=== PATIENT | female | born 1950 | race American Indian/Alaskan Native ===

== ENCOUNTER 2018-09-21 21:55 | Inpatient (IN) | payer MEDICARE ==
[2018-09-21] MEDS ORDERED: ROCEPHIN/NS 2 GM/100 ML 2 GM/100 ML BAG IV ONE (22:10)
--- NOTE | 2018-09-21 22:10 | Emergency Department Report ---
ED Altered Mental Status HPI - General Stated Complaint: RESP DISTRESS Time Seen by Provider: 09/21/18 21:55 Source: EMS Mode of arrival: Stretcher Limitations: Altered Mental Status, Physical Limitation - History of Present Illness Initial Comments: Patient is 68-year-old female that presents emergency room with altered mental status, decreased responsiveness and respiratory distress. Patient intubated immediately upon arrival. Sats noted to be in the 80s on a nonrebreather. Report received from EMS. Per EMS patient called 911 for chest pain. Patient took a nitroglycerin prior to EMS arrival to arouse. Patient had chest pain that started at 2130. patient found to be hypoxic in the 40s by EMS and the one unresponsive. MD Complaint: altered mental status, decreased responsiveness -: Sudden Severity: severe Consistency of Symptoms: getting worse Associated Symptoms: denies other symptoms - Related Data Allergies Allergy/AdvReac Type Severity Reaction Status Date / Time Unable to Assess Allergy Verified 09/21/18 22:09 ED Review of Systems ROS: Stated complaint: RESP DISTRESS Other details as noted in HPI Comment: Unobtainable due to pts medical conditions ED Past Medical Hx - Past Medical History Previous Medical History?: Yes Hx Hypertension: Yes Hx Congestive Heart Failure: Yes Hx Diabetes: Yes Hx Renal Disease: Yes - Surgical History Past Surgical History?: No - Family History Family history: no significant - Social History Smoking Status: Unknown if ever smoked Substance Use Type: None ED Physical Exam - General Limitations: Altered Mental Status General appearance: in distress - Head Head exam: Present: atraumatic, normocephalic - Eye Eye exam: Present: normal appearance, PERRL Pupils: Present: normal accommodation - ENT ENT exam: Present: mucous membranes dry - Neck Neck exam: Present: normal inspection - Respiratory Respiratory exam: Present: respiratory distress, rales, rhonchi, decreased breath sounds - Cardiovascular Cardiovascular Exam: Present: regular rate, normal rhythm, tachycardia. Absent: systolic murmur, diastolic murmur, rubs, gallop - GI/Abdominal GI/Abdominal exam: Present: soft, normal bowel sounds - Extremities Exam Extremities exam: Present: normal inspection - Neurological Exam Neurological exam: Present: altered - Expanded Neurological Exam Expanded Best Eye Response (Yuli[place]): (1) no response Best Motor Response ([place]): (4) withdraws to pain Best Verbal Response ([place]): (2) incomprehsible sounds [place] Total: 7 - Skin Skin exam: Present: warm, dry, intact, normal color. Absent: rash - Assessment Assessment Interval: Baseline - Level of Consciousness 1a. Level of Consciousness: coma/unresponsive - LOC Questions 1b. LOC Questions: dysarthric/intubated - LOC Command 1c. LOC Commands: performs no tasks correctly - Best Gaze 2. Best Gaze: normal - Visual 3. Visual: no visual loss - Facial Palsy 4. Facial Palsy: normal symmetrical movement - Motor Arm 5b. Motor Arm Right: no movement 5a. Motor Arm Left: no movement - Motor Leg 6b. Motor Leg Right: no movement 6a. Motor Leg Left: no movement - Limb Ataxia 7. Limb Ataxia: absent - Sensory 8. Sensory: coma/unresponsive - Best Language 9. Best Language: coma/unresponsive - Dysarthria 10. Dysarthria: intubated or other barrier - Extinction and Inattention 11. Extinction/Inattention: no abnormality - Scoring Total Score: 27 Stroke Severity: Severe Stroke ED Course Vital Signs 09/21/18 09/21/18 09/21/18 21:58 22:00 22:15 Temperature 98.7 F Pulse Rate 150 H 137 H 131 H Respiratory 42 H 42 H 26 H Rate Blood Pressure 205/93 Blood Pressure 241/114 [Left] O2 Sat by Pulse 56 L 60 L 100 Oximetry 09/21/18 09/21/18 09/21/18 22:30 22:45 23:00 Temperature Pulse Rate 109 H 109 H 107 H Respiratory 28 H 20 27 H Rate Blood Pressure 185/95 172/91 179/87 Blood Pressure [Left] O2 Sat by Pulse 100 100 100 Oximetry 09/21/18 09/21/18 09/21/18 23:16 23:30 23:46 Temperature Pulse Rate 108 H 93 H Respiratory 34 H 25 H Rate Blood Pressure 188/71 182/86 176/105 Blood Pressure [Left] O2 Sat by Pulse 99 100 100 Oximetry 09/22/18 09/22/18 09/22/18 00:00 00:16 00:30 Temperature Pulse Rate 95 H 95 H 90 Respiratory 30 H 31 H 28 H Rate Blood Pressure 200/95 200/95 200/95 Blood Pressure [Left] O2 Sat by Pulse 100 100 100 Oximetry 09/22/18 09/22/18 09/22/18 00:50 01:00 01:14 Temperature Pulse Rate 108 H 89 90 Respiratory 26 H Rate Blood Pressure 186/84 209/108 209/108 Blood Pressure [Left] O2 Sat by Pulse 100 98 Oximetry 09/22/18 09/22/18 09/22/18 01:16 01:30 01:46 Temperature Pulse Rate 95 H 104 H 108 H Respiratory 28 H 32 H 34 H Rate Blood Pressure 189/93 186/84 106/92 Blood Pressure [Left] O2 Sat by Pulse 99 100 100 Oximetry 09/22/18 09/22/18 09/22/18 02:00 02:16 02:30 Temperature Pulse Rate 111 H 120 H 113 H Respiratory 33 H 36 H 26 H Rate Blood Pressure 161/89 145/82 110/85 Blood Pressure [Left] O2 Sat by Pulse 98 98 100 Oximetry - Reevaluation(s) Reevaluation #1: Patient evaluated immediately upon arrival with EMS. Patient minimally responsive. Patient will be intubated to protect airway and for oxygenation. Patient's initial sat 80% on 15 L by nonrebreather. See procedure note. See initial examination. 09/21/18 21:55 Patient's blood pressure has improved. Patient is resting on that. Patient's propofol drip has been started 09/21/18 22:25 Patient still moving on propofol. Versed drip was ordered. Patient's x-ray shows pneumonia. Patient's x-ray also showed ET tube in the right bronchus. ET tube pulled back 2 cm. We'll repeat chest x-ray. NG tube is not in the stomach. We'll have nurse re-position NG tube. Antibiotics ordered. 09/21/18 23:11 We'll DC propofol drip due to patient not being controlled and properly sedated. Patient will be placed on fentanyl drip. Blood pressure has improved with danay atment. 09/22/18 01:47 Family at bedside. Family states patient has a history of diabetes, CHF, CKD4. 09/22/18 01:47 OG placed an x-ray was done. Patient will be transported to CT. 09/22/18 02:37 - Consultations Consultation #1: Hospital was consulted for admission. Hospitalist was given full report. Hospitalist to assume care patient. . Hospitalist made aware that head CT is pending. 09/22/18 02:46 - Intubation Time Out Performed: Yes Sedative: Etomidate Paralytic: Succinylcholine Laryngoscope: fiberoptic video scope Size: 4 Assist Device Used: fiberoptic device ET Tube Size: 7.5 Tube Secured Depth (cm): 24 Tube Secured Location: lips Tube Placement Confirmation: visualized tube passing t, equal breath sounds bilat, no breath sounds over epi, confirmation by capnometr Patient Tolerated Procedure: well Intubation Complications: none - Lab Data Result diagrams: 09/21/18 22:56 09/21/18 22:56 Lab Results 09/21/18 09/21/18 09/21/18 Range/Units 22:56 22:56 22:56 WBC 7.7 (4.5-11.0) K/mm3 RBC 3.05 L (3.65-5.03) M/mm3 Hgb 9.0 L (10.1-14.3) gm/dl Hct 26.9 L (30.3-42.9) % MCV 88 (79-97) fl MCH 30 (28-32) pg MCHC 34 (30-34) % RDW 15.0 (13.2-15.2) % Plt Count 235 (140-440) K/mm3 Lymph % (Auto) 9.3 L (13.4-35.0) % Becker % (Auto) 4.3 (0.0-7.3) % Eos % (Auto) 1.6 (0.0-4.3) % Baso % (Auto) 0.8 (0.0-1.8) % Lymph # 0.7 L (1.2-5.4) K/mm3 Becker # 0.3 (0.0-0.8) K/mm3 Eos # 0.1 (0.0-0.4) K/mm3 Baso # 0.1 (0.0-0.1) K/mm3 Seg Neutrophils % 84.0 H (40.0-70.0) % Seg Neutrophils # 6.5 (1.8-7.7) K/mm3 D-Dimer (0-234) ng/mlDDU POC ABG pH (7.35-7.45) POC ABG pCO2 (35-45) POC ABG pO2 (80-105) POC ABG HCO3 POC ABG Total CO2 POC ABG O2 Sat POC ABG Base Excess FiO2 % Sodium 143 (137-145) mmol/L Potassium 5.2 H (3.6-5.0) mmol/L Chloride 107.0 (98-107) mmol/L Carbon Dioxide 17 L (22-30) mmol/L Anion Gap 24 mmol/L BUN 53 H (7-17) mg/dL Creatinine 6.7 H (0.7-1.2) mg/dL Estimated GFR 7 ml/min BUN/Creatinine Ratio 8 % Glucose 307 H (65-100) mg/dL Lactic Acid (0.7-2.0) mmol/L Calcium 8.2 L (8.4-10.2) mg/dL Total Bilirubin 0.20 (0.1-1.2) mg/dL AST 17 (5-40) units/L ALT 9 (7-56) units/L Alkaline Phosphatase 86 (35-129) units/L Ammonia 57.0 (25-60) umol/L Troponin T (0.00-0.029) ng/mL Total Protein 6.5 (6.3-8.2) g/dL Albumin 3.6 L (3.9-5) g/dL Albumin/Globulin Ratio 1.2 % Triglycerides (2-149) mg/dL Cholesterol (50-199) mg/dL LDL Cholesterol Direct (50-130) mg/dL HDL Cholesterol (40-59) mg/dL Cholesterol/HDL Ratio % Salicylates (2.8-20.0) mg/dL Acetaminophen (10.0-30.0) ug/mL Plasma/Serum Alcohol (0-0.07) % 09/21/18 09/21/18 09/21/18 Range/Units 22:56 22:56 22:56 WBC (4.5-11.0) K/mm3 RBC (3.65-5.03) M/mm3 Hgb (10.1-14.3) gm/dl Hct (30.3-42.9) % MCV (79-97) fl MCH (28-32) pg MCHC (30-34) % RDW (13.2-15.2) % Plt Count (140-440) K/mm3 Lymph % (Auto) (13.4-35.0) % Becker % (Auto) (0.0-7.3) % Eos % (Auto) (0.0-4.3) % Baso % (Auto) (0.0-1.8) % Lymph # (1.2-5.4) K/mm3 Becker # (0.0-0.8) K/mm3 Eos # (0.0-0.4) K/mm3 Baso # (0.0-0.1) K/mm3 Seg Neutrophils % (40.0-70.0) % Seg Neutrophils # (1.8-7.7) K/mm3 D-Dimer (0-234) ng/mlDDU POC ABG pH (7.35-7.45) POC ABG pCO2 (35-45) POC ABG pO2 (80-105) POC ABG HCO3 POC ABG Total CO2 POC ABG O2 Sat POC ABG Base Excess FiO2 % Sodium (137-145) mmol/L Potassium (3.6-5.0) mmol/L Chloride (98-107) mmol/L Carbon Dioxide (22-30) mmol/L Anion Gap mmol/L BUN (7-17) mg/dL Creatinine (0.7-1.2) mg/dL Estimated GFR ml/min BUN/Creatinine Ratio % Glucose (65-100) mg/dL Lactic Acid (0.7-2.0) mmol/L Calcium (8.4-10.2) mg/dL Total Bilirubin (0.1-1.2) mg/dL AST (5-40) units/L ALT (7-56) units/L Alkaline Phosphatase (35-129) units/L Ammonia (25-60) umol/L Troponin T 0.025 (0.00-0.029) ng/mL Total Protein (6.3-8.2) g/dL Albumin (3.9-5) g/dL Albumin/Globulin Ratio % Triglycerides (2-149) mg/dL Cholesterol (50-199) mg/dL LDL Cholesterol Direct (50-130) mg/dL HDL Cholesterol (40-59) mg/dL Cholesterol/HDL Ratio % Salicylates < 0.3 L (2.8-20.0) mg/dL Acetaminophen < 5.0 L (10.0-30.0) ug/mL Plasma/Serum Alcohol (0-0.07) % 09/21/18 09/21/18 09/21/18 Range/Units 22:56 22:56 22:56 WBC (4.5-11.0) K/mm3 RBC (3.65-5.03) M/mm3 Hgb (10.1-14.3) gm/dl Hct (30.3-42.9) % MCV (79-97) fl MCH (28-32) pg MCHC (30-34) % RDW (13.2-15.2) % Plt Count (140-440) K/mm3 Lymph % (Auto) (13.4-35.0) % Becker % (Auto) (0.0-7.3) % Eos % (Auto) (0.0-4.3) % Baso % (Auto) (0.0-1.8) % Lymph # (1.2-5.4) K/mm3 Becker # (0.0-0.8) K/mm3 Eos # (0.0-0.4) K/mm3 Baso # (0.0-0.1) K/mm3 Seg Neutrophils % (40.0-70.0) % Seg Neutrophils # (1.8-7.7) K/mm3 D-Dimer 4401.15 H (0-234) ng/mlDDU POC ABG pH (7.35-7.45) POC ABG pCO2 (35-45) POC ABG pO2 (80-105) POC ABG HCO3 POC ABG Total CO2 POC ABG O2 Sat POC ABG Base Excess FiO2 % Sodium (137-145) mmol/L Potassium (3.6-5.0) mmol/L Chloride (98-107) mmol/L Carbon Dioxide (22-30) mmol/L Anion Gap mmol/L BUN (7-17) mg/dL Creatinine (0.7-1.2) mg/dL Estimated GFR ml/min BUN/Creatinine Ratio % Glucose (65-100) mg/dL Lactic Acid 3.70 H* (0.7-2.0) mmol/L Calcium (8.4-10.2) mg/dL Total Bilirubin (0.1-1.2) mg/dL AST (5-40) units/L ALT (7-56) units/L Alkaline Phosphatase (35-129) units/L Ammonia (25-60) umol/L Troponin T (0.00-0.029) ng/mL Total Protein (6.3-8.2) g/dL Albumin (3.9-5) g/dL Albumin/Globulin Ratio % Triglycerides (2-149) mg/dL Cholesterol (50-199) mg/dL LDL Cholesterol Direct (50-130) mg/dL HDL Cholesterol (40-59) mg/dL Cholesterol/HDL Ratio % Salicylates (2.8-20.0) mg/dL Acetaminophen (10.0-30.0) ug/mL Plasma/Serum Alcohol < 0.01 (0-0.07) % 09/21/18 09/21/18 09/22/18 Range/Units 23:14 23:57 00:48 WBC (4.5-11.0) K/mm3 RBC (3.65-5.03) M/mm3 Hgb (10.1-14.3) gm/dl Hct (30.3-42.9) % MCV (79-97) fl MCH (28-32) pg MCHC (30-34) % RDW (13.2-15.2) % Plt Count (140-440) K/mm3 Lymph % (Auto) (13.4-35.0) % Becker % (Auto) (0.0-7.3) % Eos % (Auto) (0.0-4.3) % Baso % (Auto) (0.0-1.8) % Lymph # (1.2-5.4) K/mm3 Becker # (0.0-0.8) K/mm3 Eos # (0.0-0.4) K/mm3 Baso # (0.0-0.1) K/mm3 Seg Neutrophils % (40.0-70.0) % Seg Neutrophils # (1.8-7.7) K/mm3 D-Dimer (0-234) ng/mlDDU POC ABG pH 7.234 L 7.322 L (7.35-7.45) POC ABG pCO2 45.0 42.2 (35-45) POC ABG pO2 118 H 142 H (80-105) POC ABG HCO3 19.0 21.8 POC ABG Total CO2 20 23 POC ABG O2 Sat 98 99 POC ABG Base Excess -8 -4 FiO2 80 60 % Sodium (137-145) mmol/L Potassium (3.6-5.0) mmol/L Chloride (98-107) mmol/L Carbon Dioxide (22-30) mmol/L Anion Gap mmol/L BUN (7-17) mg/dL Creatinine (0.7-1.2) mg/dL Estimated GFR ml/min BUN/Creatinine Ratio % Glucose (65-100) mg/dL Lactic Acid (0.7-2.0) mmol/L Calcium (8.4-10.2) mg/dL Total Bilirubin (0.1-1.2) mg/dL AST (5-40) units/L ALT (7-56) units/L Alkaline Phosphatase (35-129) units/L Ammonia (25-60) umol/L Troponin T 0.062 H D (0.00-0.029) ng/mL Total Protein (6.3-8.2) g/dL Albumin (3.9-5) g/dL Albumin/Globulin Ratio % Triglycerides 208 H (2-149) mg/dL Cholesterol 206 H (50-199) mg/dL LDL Cholesterol Direct 143 H (50-130) mg/dL HDL Cholesterol 40 (40-59) mg/dL Cholesterol/HDL Ratio 5.15 % Salicylates (2.8-20.0) mg/dL Acetaminophen (10.0-30.0) ug/mL Plasma/Serum Alcohol (0-0.07) % 09/22/18 Range/Units 01:24 WBC (4.5-11.0) K/mm3 RBC (3.65-5.03) M/mm3 Hgb (10.1-14.3) gm/dl Hct (30.3-42.9) % MCV (79-97) fl MCH (28-32) pg MCHC (30-34) % RDW (13.2-15.2) % Plt Count (140-440) K/mm3 Lymph % (Auto) (13.4-35.0) % Becker % (Auto) (0.0-7.3) % Eos % (Auto) (0.0-4.3) % Baso % (Auto) (0.0-1.8) % Lymph # (1.2-5.4) K/mm3 Becker # (0.0-0.8) K/mm3 Eos # (0.0-0.4) K/mm3 Baso # (0.0-0.1) K/mm3 Seg Neutrophils % (40.0-70.0) % Seg Neutrophils # (1.8-7.7) K/mm3 D-Dimer (0-234) ng/mlDDU POC ABG pH (7.35-7.45) POC ABG pCO2 (35-45) POC ABG pO2 (80-105) POC ABG HCO3 POC ABG Total CO2 POC ABG O2 Sat POC ABG Base Excess FiO2 % Sodium (137-145) mmol/L Potassium (3.6-5.0) mmol/L Chloride (98-107) mmol/L Carbon Dioxide (22-30) mmol/L Anion Gap mmol/L BUN (7-17) mg/dL Creatinine (0.7-1.2) mg/dL Estimated GFR ml/min BUN/Creatinine Ratio % Glucose (65-100) mg/dL Lactic Acid 1.90 (0.7-2.0) mmol/L Calcium (8.4-10.2) mg/dL Total Bilirubin (0.1-1.2) mg/dL AST (5-40) units/L ALT (7-56) units/L Alkaline Phosphatase (35-129) units/L Ammonia (25-60) umol/L Troponin T (0.00-0.029) ng/mL Total Protein (6.3-8.2) g/dL Albumin (3.9-5) g/dL Albumin/Globulin Ratio % Triglycerides (2-149) mg/dL Cholesterol (50-199) mg/dL LDL Cholesterol Direct (50-130) mg/dL HDL Cholesterol (40-59) mg/dL Cholesterol/HDL Ratio % Salicylates (2.8-20.0) mg/dL Acetaminophen (10.0-30.0) ug/mL Plasma/Serum Alcohol (0-0.07) % - EKG Data -: EKG Interpreted by Me EKG shows normal: sinus rhythm, axis, intervals, QRS complexes, ST-T waves Rate: normal - Radiology Data Radiology results: report reviewed, image reviewed interpreted by me: Second chest x-ray shows ET tube above the osvaldo. Flat plate abdomen shows OG tube in good placement. FINAL REPORT PROCEDURE: XR CHEST 1V AP TECHNIQUE: Chest radiograph anteroposterior view. CPT 03363 HISTORY: intubation COMPARISON: No prior studies are available for comparison. FINDINGS: Heart: Normal. Mediastinum/Vessels: Normal. Lungs/Pleural space: There is evidence of consolidation involving the right lower lung. Left lower lung is obscured by the cardiac shadow. Bilateral pleural spaces are clear.. Bony thorax: No acute osseous abnormality. Life support devices: An endotracheal tube is noted terminating in the proximal right main bronchus. A nasogastric tube appears to be terminating in the cervical esophagus.. IMPRESSION: Consolidation right lower lung. Pneumonia is suspected. Endotracheal tube is terminating in the proximal right main bronchus. Repositioning is recommended. Nasogastric tube appears to be terminating in the cervical esophagus. - Medical Decision Making Patient is a 68-year-old female presents emergency room with hypoxia and respiratory failure or mental status. Patient was initially intubated. Patient found to have left acidosis. Lipase S is improved with intubation. Patient given antibiotics for pneumonia. Patient found to be septic. Patient has a positive chest x-ray for pneumonia. Patient has a head CT done. - Differential Diagnosis hypoxia. Pneumonia. Respiratory failure. Critical Care Time: Yes Critical care attestation.: If time is entered above; I have spent that time in minutes in the direct care of this critically ill patient, excluding procedure time. Critical Care Time: 55 minutes ED Disposition Clinical Impression: Hypoxia, Decreased responsiveness, Lactic acid acidosis Respiratory failure Qualifiers: Chronicity: acute Respiratory failure complication: hypoxia Qualified Code(s): J96.01 - Acute respiratory failure with hypoxia Pneumonia Qualifiers: Pneumonia type: due to unspecified organism Laterality: unspecified laterality Lung location: unspecified part of lung Qualified Code(s): J18.9 - Pneumonia, unspecified organism CKD (chronic kidney disease) Qualifiers: Chronic kidney disease stage: unspecified stage Qualified Code(s): N18.9 - Chronic kidney disease, unspecified Sepsis Qualifiers: Sepsis type: sepsis due to unspecified organism Qualified Code(s): A41.9 - Sepsis, unspecified organism Hypertension Qualifiers: Hypertension type: essential hypertension Qualified Code(s): I10 - Essential (primary) hypertension Disposition: OP ADMIT IP TO THIS HOSP Is pt being admited?: Yes Does the pt Need Aspirin: No Condition: Critical Time of Disposition: 02:46
[2018-09-21] MEDS ORDERED: DIPRIVAN 10 MG/ML 1,000 MG/100 ML BOTTLE IV ONE (22:13)
[2018-09-21] MEDS ORDERED: MIDAZOLAM 100 MG in NACL 0.9% 80 ML IV SCH ×2 (22:15→23:45)
[2018-09-21] MEDS ORDERED: ASPIRIN PR ONE (22:30)
[2018-09-21] MEDS ORDERED: DIPRIVAN 10 MG/ML 1,000 MG/100 ML BOTTLE IV SCH (22:30)
--- NOTE | 2018-09-21 23:06 | XRay Report ---
FINAL REPORT PROCEDURE: XR CHEST 1V AP TECHNIQUE: Chest radiograph anteroposterior view. CPT 46650 HISTORY: intubation COMPARISON: No prior studies are available for comparison. FINDINGS: Heart: Normal. Mediastinum/Vessels: Normal. Lungs/Pleural space: There is evidence of consolidation involving the right lower lung. Left lower jenni ng is obscured by the cardiac shadow. Bilateral pleural spaces are clear.. Bony thorax: No acute osseous abnormality. Life support devices: An endotracheal tube is noted terminating in the proximal right main bronchus. A nasogastric tube appears to be terminating in the cervical esophagus.. IMPRESSION: Consolidation right lower lung. Pneumonia is suspected. Endotracheal tube is terminating in the proximal right main bronchus. Repositioning is recommended. Nasogastric tube appears to be terminating in the cervical esophagus..
[2018-09-21] MEDS ORDERED: NACL 0.9% 1000 ML 1,000 ML IV ONE (23:08)
[2018-09-21] MEDS ORDERED: MAXIPIME/NS 2 GM/100 ML 2 GM/100 ML BAG IV ONE (23:08)
[2018-09-21 23:17] LABS: Basophils # (Auto) 0.1 K/mm3 (0.0-0.1); Basophils % (Auto) 0.8 % (0.0-1.8); Eosinophils # (Auto) 0.1 K/mm3 (0.0-0.4); Eosinophils % (Auto) 1.6 % (0.0-4.3); Hematocrit 26.9 % (30.3-42.9); Lymphocytes # (Auto) 0.7 K/mm3 (1.2-5.4); Lymphocytes % (Auto) 9.3 % (13.4-35.0); Mean Corpuscular HGB Conc 34 % (30-34); Mean Corpuscular Volume 88 fl (79-97); Monocytes # (Auto) 0.3 K/mm3 (0.0-0.8); Monocytes % (Auto) 4.3 % (0.0-7.3); Platelet Count 235 K/mm3 (140-440); Red Blood Count 3.05 M/mm3 (3.65-5.03)
[2018-09-21 23:42] LABS: Albumin 3.6 g/dL (3.9-5); Calcium 8.2 mg/dL (8.4-10.2)
--- NOTE | 2018-09-21 23:54 | XRay Report ---
FINAL REPORT PROCEDURE: XR CHEST 1V AP TECHNIQUE: Chest radiograph anteroposterior view. CPT 52300 HISTORY: et reposition. ng COMPARISON: 09/21/2018 22 39 hours FINDINGS: Patient is rotated to the left Heart: Normal. Mediastinum/Vessels: Normal. Lungs/Pleural space: Consolidation of right lower lung is again noted. Left lower lung is obscured by cardiac shadow. There appears to be an area of consolidation involving the left lower lung as visual ized. Left costophrenic angle is obscured by the cardiac shadow. Right costophrenic angle is clear.. Bony thorax: No acute osseous abnormality. Life support devices: There isn't been interval repositioning of the endotracheal tube which is now t erminating about 2.9 centimeters above the osvaldo.. IMPRESSION: Consolidation right lower lung consistent with pneumonia. Endotracheal tube terminating about 2.9 centimeters above the osvaldo Consolidation left lower lung is most likely secondary to atelectasis. Underlying pneumonia cannot be excluded.
[2018-09-22] MEDS ORDERED: VERSED IV ONE (00:24)
[2018-09-22] MEDS ORDERED: QUELICIN ONE (00:24)
[2018-09-22] MEDS ORDERED: AMIDATE IV ONE (00:24)
[2018-09-22] MEDS ORDERED: APRESOLINE IV ONE (01:06)
[2018-09-22] MEDS: HumaLOG SUB-Q SCH ×3 (01:40→18:16)
[2018-09-22] MEDS ORDERED: fentaNYL DRIP Premix 2,000 MCG/100 ML BAG IV ONE (01:50)
[2018-09-22] MEDS: fentaNYL DRIP Premix 2,000 MCG/100 ML BAG IV SCH ×3 (02:06→17:36)
[2018-09-22 02:22] LABS: Chol/HDL Ratio 5.15 %
--- NOTE | 2018-09-22 03:07 | XRay Report ---
FINAL REPORT EXAM: XR ABDOMEN 1V AP HISTORY: og placement TECHNIQUE: A portable AP view of the abdomen was obtained. FINDINGS: The tip of the NG tube is in good position in the lower stomach. The bowel gas pattern is unremarkabl e. Free air is not seen. The skeletal structures do not show any acute changes. IMPRESSION: The tip of the NG tube is in the lower aspect of the stomach in good position.
--- NOTE | 2018-09-22 03:59 | Cat Scan Report ---
FINAL REPORT PROCEDURE: CT HEAD/BRAIN WO CON TECHNIQUE: Computerized tomography of the head was performed without contrast material. HISTORY: ams COMPARISON: No prior studies are available for comparison. FINDINGS: Skull and scalp: Normal. Paranasal sinuses: Normal. Ventricles and subarachnoid spaces: Normal. Cerebrum: No evidence of hemorrhage, acute infarction or mass. There is an area hypoattenuation in th e right occipital lobe, old infarction is noted.. Cerebellum and brainstem: No evidence of hemorrhage, acute infarction or mass. Vasculature: Normal. Comments: None. IMPRESSION: There is no evidence of an acute intracranial process. 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
[2018-09-22] MEDS ORDERED: ZOFRAN IV PRN (04:14)
[2018-09-22] MEDS ORDERED: D50W (25GM) Syringe IV PRN (04:14)
--- NOTE | 2018-09-22 04:32 | History and Physical Report ---
History of Present Illness Date of examination: 09/22/18 History of present illness: 68 year old woman history of CHF, hypertension, diabetes, chronic kidney disease was brought to the emergency room for shortness of breath. The history is per the son Roshan, he stated he was not at the scene, the patient was at [facility] when her symptoms started. Patient was intubated in the emergency room, she is sedated, review of system is unobtainable. Nurse reported that the patient had copious amount of vomiting in the ER PAST MEDICAL HISTORY: CHF, hypertension, diabetes, chronic kidney disease PAST SURGICAL HISTORY: None SOCIAL HISTORY: Denies alcohol, drugs, tobacco FAMILY HISTORY: Hypertension Medications and Allergies Allergies Allergy/AdvReac Type Severity Reaction Status Date / Time Unable to Assess Allergy Verified 09/21/18 22:09 Active Meds: Active Medications Acetaminophen (Tylenol) 650 mg PO Q4H PRN PRN Reason: Pain MILD(1-3)/Fever >100.5/MEJIA Dextrose (D50w (25gm) Syringe) 50 ml IV PRN PRN PRN Reason: Hypoglycemia Enoxaparin Sodium (Lovenox) 30 mg SUB-Q QDAY [facility] Midazolam HCl 100 mg/ Sodium (Chloride) 100 mls @ 2 mls/hr IV TITR [facility]; Protocol Last Admin: 09/21/18 22:50 Dose: 2 mg/hr, 2 mls/hr Documented by: Fentanyl Citrate (Fentanyl Drip Premix) 2,000 mcg in 100 mls @ 3.7 mls/hr IV TITR [facility]; Protocol Last Admin: 09/22/18 02:06 Dose: 1 mcg/kg/hr, 3.7 mls/hr Documented by: Piperacillin Sod/Tazobactam Sod (Zosyn/Ns 2.25 Gm/50ml) 2.25 gm in 50 mls @ 100 mls/hr IV Q8HR [facility]; Protocol Insulin Human Lispro (Humalog) 0 unit SUB-Q Q6HR [facility]; Protocol Ondansetron HCl (Zofran) 4 mg IV Q8H PRN PRN Reason: Nausea And Vomiting Sodium Chloride (Sodium Chloride Flush Syringe 10 Ml) 10 ml IV BID [facility] Sodium Chloride (Sodium Chloride Flush Syringe 10 Ml) 10 ml IV PRN PRN PRN Reason: LINE FLUSH Exam - Physical Exam Narrative exam: General Apperance: The patient lying in bed, intubated, breathing comfortable HEENT: Normocephalic, atraumatic. Pupils equally round and reactive to light, unable to do EOM, no sclericterus or JVD or thyromegaly or nodule. , no carotid bruit, mucous membranes moist, ET tube in place Heart: S1-S2, regular is rhythm Lungs: Clear to auscultation bilaterally, breathing comfortable Abdomen: Positive bowel sounds, soft, soft, nondistended, no organomegaly Extremities: No edema cyanosis clubbing Skin: no rash, nodule, warm and dry Neuro: sedated - Constitutional Vitals: Temp Pulse Resp BP Pulse Ox 98.7 F 78 26 H 141/59 99 09/21/18 22:00 09/22/18 04:15 09/22/18 04:15 09/22/18 04:15 09/22/18 04:15 Results - Labs CBC & Chem 7: 09/21/18 22:56 09/21/18 22:56 Labs: Abnormal lab results 09/21/18 09/21/18 09/21/18 Range/Units 22:56 22:56 22:56 RBC 3.05 L (3.65-5.03) M/mm3 Hgb 9.0 L (10.1-14.3) gm/dl Hct 26.9 L (30.3-42.9) % Lymph % (Auto) 9.3 L (13.4-35.0) % Lymph # 0.7 L (1.2-5.4) K/mm3 Seg Neutrophils % 84.0 H (40.0-70.0) % D-Dimer (0-234) ng/mlDDU POC ABG pH (7.35-7.45) POC ABG pO2 (80-105) Potassium 5.2 H (3.6-5.0) mmol/L Carbon Dioxide 17 L (22-30) mmol/L BUN 53 H (7-17) mg/dL Creatinine 6.7 H (0.7-1.2) mg/dL Glucose 307 H (65-100) mg/dL Lactic Acid (0.7-2.0) mmol/L Calcium 8.2 L (8.4-10.2) mg/dL Troponin T (0.00-0.029) ng/mL Albumin 3.6 L (3.9-5) g/dL Triglycerides (2-149) mg/dL Cholesterol (50-199) mg/dL LDL Cholesterol Direct (50-130) mg/dL Salicylates < 0.3 L (2.8-20.0) mg/dL Acetaminophen (10.0-30.0) ug/mL 09/21/18 09/21/18 09/21/18 Range/Units 22:56 22:56 22:56 RBC (3.65-5.03) M/mm3 Hgb (10.1-14.3) gm/dl Hct (30.3-42.9) % Lymph % (Auto) (13.4-35.0) % Lymph # (1.2-5.4) K/mm3 Seg Neutrophils % (40.0-70.0) % D-Dimer 4401.15 H (0-234) ng/mlDDU POC ABG pH (7.35-7.45) POC ABG pO2 (80-105) Potassium (3.6-5.0) mmol/L Carbon Dioxide (22-30) mmol/L BUN (7-17) mg/dL Creatinine (0.7-1.2) mg/dL Glucose (65-100) mg/dL Lactic Acid 3.70 H* (0.7-2.0) mmol/L Calcium (8.4-10.2) mg/dL Troponin T (0.00-0.029) ng/mL Albumin (3.9-5) g/dL Triglycerides (2-149) mg/dL Cholesterol (50-199) mg/dL LDL Cholesterol Direct (50-130) mg/dL Salicylates (2.8-20.0) mg/dL Acetaminophen < 5.0 L (10.0-30.0) ug/mL 09/21/18 09/21/18 09/22/18 Range/Units 23:14 23:57 00:48 RBC (3.65-5.03) M/mm3 Hgb (10.1-14.3) gm/dl Hct (30.3-42.9) % Lymph % (Auto) (13.4-35.0) % Lymph # (1.2-5.4) K/mm3 Seg Neutrophils % (40.0-70.0) % D-Dimer (0-234) ng/mlDDU POC ABG pH 7.234 L 7.322 L (7.35-7.45) POC ABG pO2 118 H 142 H (80-105) Potassium (3.6-5.0) mmol/L Carbon Dioxide (22-30) mmol/L BUN (7-17) mg/dL Creatinine (0.7-1.2) mg/dL Glucose (65-100) mg/dL Lactic Acid (0.7-2.0) mmol/L Calcium (8.4-10.2) mg/dL Troponin T 0.062 H D (0.00-0.029) ng/mL Albumin (3.9-5) g/dL Triglycerides 208 H (2-149) mg/dL Cholesterol 206 H (50-199) mg/dL LDL Cholesterol Direct 143 H (50-130) mg/dL Salicylates (2.8-20.0) mg/dL Acetaminophen (10.0-30.0) ug/mL - Imaging and Cardiology EKG: image reviewed Abdominal x-ray: report reviewed CT scan - chest: report reviewed CT Scan - head: report reviewed Assessment and Plan Assessment Acute respiratory failure Sepsis Pneumonia, probably most likely aspiration Abnormal d-dimer, cardiac enzymes Hypertension Diabetes Chronic kidney disease CHF, stable Plan Admit to medicine Start IV Zosyn, follow cultures, hold IV fluid - CHF Obtain VQ scan,v/q notified, check cardiac enzymes Consult critical care Check finger sticks, initiate insulin sliding scale DVT prophylaxis
[2018-09-22 05:27] LABS: Creatine Kinase MB 4.1 ng/mL (0.0-4.0)
[2018-09-22] MEDS: ZOSYN/NS 2.25 GM/50ML 2.25 GM/50 ML BAG IV SCH ×3 (06:28→21:18)
[2018-09-22] MEDS ORDERED: DIPRIVAN 10 MG/ML 1,000 MG/100 ML BOTTLE IV ONE (06:56)
[2018-09-22 11:03] LABS: Creatine Kinase MB 3.1 ng/mL (0.0-4.0)
[2018-09-22] MEDS: LOVENOX SUB-Q SCH (11:15)
[2018-09-22] MEDS: PEPCID IV SCH (11:15)
[2018-09-22] MEDS: SODIUM CHLORIDE FLUSH SYRINGE 10 ML IV SCH ×2 (11:15→21:20)
--- NOTE | 2018-09-22 11:26 | Consultation ---
History of Present Illness Consult date: 09/22/18 Reason for consult: other (respiratory failure, suspected non-STEMI event) History of present illness: Called to evaluate at the ICU patient had just arrived from the ER intubated. Per notes, "68-year-old female that presents emergency room with altered mental status, decreased responsiveness and respiratory distress. Patient intubated immediately upon arrival. Sats noted to be in the 80s on a nonrebreather. Report received from EMS. Per EMS patient called 911 for chest pain. Patient took a nitroglycerin prior to EMS arrival to arouse. Patient had chest pain that started at 2130. patient found to be hypoxic in the 40s by EMS and the one unresponsive. MD Complaint: altered mental status, decreased responsiveness Currently at the unit on ventilatory support. Hemodynamics appear to be stable, bedside oximetries are present. No family available for additional discussion. The patient is sedated on fentanyl and Versed drips Past History Past Medical History: ESRD Medications and Allergies Allergies Allergy/AdvReac Type Severity Reaction Status Date / Time Unable to Assess Allergy Verified 09/21/18 22:09 Active Meds: Active Medications Acetaminophen (Tylenol) 650 mg PO Q4H PRN PRN Reason: Pain MILD(1-3)/Fever >100.5/MEJIA Dextrose (D50w (25gm) Syringe) 50 ml IV PRN PRN PRN Reason: Hypoglycemia Enoxaparin Sodium (Lovenox) 30 mg SUB-Q QDAY [facility] Famotidine (Pepcid) 20 mg IV DAILY [facility] Fentanyl Citrate (Fentanyl Drip Premix) 2,000 mcg in 100 mls @ 3.7 mls/hr IV TITR [facility]; Protocol Last Admin: 09/22/18 09:00 Dose: 3 mcg/kg/hr, 11.1 mls/hr Documented by: Piperacillin Sod/Tazobactam Sod (Zosyn/Ns 2.25 Gm/50ml) 2.25 gm in 50 mls @ 100 mls/hr IV Q8HR [facility]; Protocol Last Admin: 09/22/18 06:28 Dose: 100 mls/hr Documented by: Propofol (Diprivan 10 Mg/Ml) 1,000 mg in 100 mls @ 2.22 mls/hr IV TITR [facility]; Protocol Insulin Human Lispro (Humalog) 0 unit SUB-Q Q6HR [facility]; Protocol Last Admin: 09/22/18 06:40 Dose: Not Given Documented by: Ondansetron HCl (Zofran) 4 mg IV Q8H PRN PRN Reason: Nausea And Vomiting Sodium Chloride (Sodium Chloride Flush Syringe 10 Ml) 10 ml IV BID [facility] Sodium Chloride (Sodium Chloride Flush Syringe 10 Ml) 10 ml IV PRN PRN PRN Reason: LINE FLUSH Review of Systems ROS unobtainable: due to mental status Physical Examination Vital signs: Vital Signs Pulse Resp Pulse Ox 150 H 42 H 56 L 09/21/18 21:58 09/21/18 21:58 09/21/18 21:58 General appearance: no acute distress, other (obese patient, intubated on that blood pressure support.) Eyes: non-icteric ENT: oropharynx moist, other (PTT at 22) Effort: normal Ascultation: Bilateral: clear Cardiovascular: regular rate and rhythm Gastrointestinal: normoactive bowel sounds, non-distended Integumentary: normal Extremities: no cyanosis, no edema Musculoskeletal: no deformities unable to assess Results - Laboratory Findings CBC and BMP: 09/21/18 22:56 09/21/18 22:56 ABG POC ABG pH 7.556 (7.35-7.45) H 09/22/18 05:03 POC ABG pCO2 22.4 (35-45) L 09/22/18 05:03 POC ABG pO2 176 (80-105) H 09/22/18 05:03 POC ABG HCO3 19.9 09/22/18 05:03 POC ABG Total CO2 21 09/22/18 05:03 POC ABG O2 Sat 100 09/22/18 05:03 PT/INR, D-dimer D-Dimer 4401.15 ng/mlDDU (0-234) H 09/21/18 22:56 Abnormal lab findings: Abnormal Labs 09/21/18 09/21/18 09/21/18 22:56 22:56 22:56 RBC 3.05 L Hgb 9.0 L Hct 26.9 L Lymph % (Auto) 9.3 L Lymph # 0.7 L Seg Neutrophils % 84.0 H D-Dimer POC ABG pH POC ABG pCO2 POC ABG pO2 Potassium 5.2 H Carbon Dioxide 17 L BUN 53 H Creatinine 6.7 H Glucose 307 H POC Glucose Lactic Acid Calcium 8.2 L CK-MB (CK-2) CK-MB (CK-2) Rel Index Troponin T Albumin 3.6 L Triglycerides Cholesterol LDL Cholesterol Direct Salicylates < 0.3 L Acetaminophen 09/21/18 09/21/18 09/21/18 22:56 22:56 22:56 RBC Hgb Hct Lymph % (Auto) Lymph # Seg Neutrophils % D-Dimer 4401.15 H POC ABG pH POC ABG pCO2 POC ABG pO2 Potassium Carbon Dioxide BUN Creatinine Glucose POC Glucose Lactic Acid 3.70 H* Calcium CK-MB (CK-2) CK-MB (CK-2) Rel Index Troponin T Albumin Triglycerides Cholesterol LDL Cholesterol Direct Salicylates Acetaminophen < 5.0 L 09/21/18 09/21/18 09/22/18 23:14 23:57 00:48 RBC Hgb Hct Lymph % (Auto) Lymph # Seg Neutrophils % D-Dimer POC ABG pH 7.234 L 7.322 L POC ABG pCO2 POC ABG pO2 118 H 142 H Potassium Carbon Dioxide BUN Creatinine Glucose POC Glucose Lactic Acid Calcium CK-MB (CK-2) CK-MB (CK-2) Rel Index Troponin T 0.062 H D Albumin Triglycerides 208 H Cholesterol 206 H LDL Cholesterol Direct 143 H Salicylates Acetaminophen 09/22/18 09/22/18 09/22/18 04:50 05:03 06:43 RBC Hgb Hct Lymph % (Auto) Lymph # Seg Neutrophils % D-Dimer POC ABG pH 7.556 H POC ABG pCO2 22.4 L POC ABG pO2 176 H Potassium Carbon Dioxide BUN Creatinine Glucose POC Glucose 116 H Lactic Acid Calcium CK-MB (CK-2) 4.1 H CK-MB (CK-2) Rel Index 4.7 H Troponin T 0.107 H* D Albumin Triglycerides Cholesterol LDL Cholesterol Direct Salicylates Acetaminophen 09/22/18 09/22/18 09:12 10:26 RBC Hgb Hct Lymph % (Auto) Lymph # Seg Neutrophils % D-Dimer POC ABG pH POC ABG pCO2 POC ABG pO2 Potassium Carbon Dioxide BUN Creatinine Glucose POC Glucose 124 H Lactic Acid Calcium CK-MB (CK-2) CK-MB (CK-2) Rel Index Troponin T 0.074 H D Albumin Triglycerides Cholesterol LDL Cholesterol Direct Salicylates Acetaminophen - Diagnostic Findings Chest x-ray: report reviewed, image reviewed Assessment and Plan Acute respiratory failure. Reason is unclear, a medial cardiac enzyme changes, non-STEMI was suspected at the ED AMS End-stage renal disease CAD Obesity Recommendation Follow cardiac protocol, serial enzymes and monitor hemodynamics Cardiology consult Nephrology consult f/u hospital ventilator bundle, Mechanical ventilation support, adjust FiO2 with goal of maintaining oximetry at or above 92% Titrate PEEP up to maintain oximetry of the above oximetry level Set tidal Volume set initially at 6-8 cm PBW for SHANNON protection Keep PIP < 30 Sedation as needed for patient comfort, adjust to RASS -1 to - 3 Maintain extubation precautions Daily morning sedation vacation and initiate SBT , hopefully in the next 24 hours, if deemed appropriate DVT prophylaxis PPI prophylaxis We'll try to gather further information once patient's family is available Critical care time was 31 minutes of [id number] evaluation and coordination of care
[2018-09-22] MEDS: DIPRIVAN 10 MG/ML 1,000 MG/100 ML BOTTLE IV SCH (13:16)
--- NOTE | 2018-09-22 13:38 | Nuclear Medicine Report ---
PERFUSION LUNG SCAN: SOB, chest pain. After injection of Technetium 99m macroaggregated albumin gamma camera imaging of the lungs in multiple projections demonstrates normal pulmonary contours with a homogeneous distribution of activity. No focal areas of perfusion deficiency are identified. IMPRESSION: Normal study.
--- NOTE | 2018-09-22 14:45 | Consultation ---
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 She is intubated and sedated on evaluation and thus HPI is provided by her sons at bedside. Pt c/o some nausea and vomiting on Saturday evening after taking "a new medication for her kidneys". On Saturday morning, she began c/o SOB during religious which quickly progressed to respiratory distress and respiratory failure. Upon EMS arrival, pt was found to be unresponsive with O2 sat in 40s. Patient was intubated immediately upon arrival. Pt noted to have elevated troponin and thus cardiology has been consulted. Pt's family denies any known history of AMI, CAD, HF or arrhythmia. They state that pt has known CKD (stage 4 or 5) and pt has not yet been initiated on dialysis. Past History Past Medical History: diabetes, hypertension, hyperlipidemia, other (CKD) Social history: denies: smoking, alcohol abuse, prescription drug abuse Medications and Allergies Allergies Allergy/AdvReac Type Severity Reaction Status Date / Time Unable to Assess Allergy Verified 09/21/18 22:09 Active Meds: Active Medications Acetaminophen (Tylenol) 650 mg PO Q4H PRN PRN Reason: Pain MILD(1-3)/Fever >100.5/MEJIA Dextrose (D50w (25gm) Syringe) 50 ml IV PRN PRN PRN Reason: Hypoglycemia Enoxaparin Sodium (Lovenox) 30 mg SUB-Q QDAY [facility] Last Admin: 09/22/18 11:15 Dose: 30 mg Documented by: Famotidine (Pepcid) 20 mg IV DAILY [facility] Last Admin: 09/22/18 11:15 Dose: 20 mg Documented by: Fentanyl Citrate (Fentanyl Drip Premix) 2,000 mcg in 100 mls @ 3.7 mls/hr IV TI TR [facility]; Protocol Last Admin: 09/22/18 09:00 Dose: 3 mcg/kg/hr, 11.1 mls/hr Documented by: Piperacillin Sod/Tazobactam Sod (Zosyn/Ns 2.25 Gm/50ml) 2.25 gm in 50 mls @ 100 mls/hr IV Q8HR [facility]; Protocol Last Admin: 09/22/18 06:28 Dose: 100 mls/hr Documented by: Propofol (Diprivan 10 Mg/Ml) 1,000 mg in 100 mls @ 2.22 mls/hr IV TITR [facility]; Protocol Last Admin: 09/22/18 13:16 Dose: 5 mcg/kg/min, 2.22 mls/hr Documented by: Insulin Human Lispro (Humalog) 0 unit SUB-Q Q6HR [facility]; Protocol Last Admin: 09/22/18 06:40 Dose: Not Given Documented by: Ondansetron HCl (Zofran) 4 mg IV Q8H PRN PRN Reason: Nausea And Vomiting Sodium Chloride (Sodium Chloride Flush Syringe 10 Ml) 10 ml IV BID [facility] Last Admin: 09/22/18 11:15 Dose: 10 ml Documented by: Sodium Chloride (Sodium Chloride Flush Syringe 10 Ml) 10 ml IV PRN PRN PRN Reason: LINE FLUSH Review of Systems ROS unobtainable: due to endotracheal tube, due to mental status Physical Examination Vital Signs Pulse Resp Pulse Ox 150 H 42 H 56 L 09/21/18 21:58 09/21/18 21:58 09/21/18 21:58 General appearance: other (intubated, sedated) Cardiac: Positive: Reg Rate and Rhythm, S1/S2 Lungs: Positive: Decreased Breath Sounds, Rhonchi Neuro: Positive: Other (intubated, sedated) Skin: Negative: Rash, Wound Musculoskeletal: No Pain Extremities: Present: edema (trace BLE) Results 09/21/18 22:56 09/21/18 22:56 Cardiac Enzymes 09/21/18 09/22/18 09/22/18 Range/Units 22:56 04:50 10:26 AST 17 (5-40) units/L CK-MB (CK-2) 4.1 H 3.1 (0.0-4.0) ng/mL Lipids 09/21/18 Range/Units 23:57 Triglycerides 208 H (2-149) mg/dL Cholesterol 206 H (50-199) mg/dL HDL Cholesterol 40 (40-59) mg/dL Cholesterol/HDL Ratio 5.15 % CBC 09/21/18 Range/Units 22:56 WBC 7.7 (4.5-11.0) K/mm3 RBC 3.05 L (3.65-5.03) M/mm3 Hgb 9.0 L (10.1-14.3) gm/dl Hct 26.9 L (30.3-42.9) % Plt Count 235 (140-440) K/mm3 Lymph # 0.7 L (1.2-5.4) K/mm3 Sandoval # 0.3 (0.0-0.8) K/mm3 Eos # 0.1 (0.0-0.4) K/mm3 Baso # 0.1 (0.0-0.1) K/mm3 Comprehensive Metabolic Panel 09/21/18 Range/Units 22:56 Sodium 143 (137-145) mmol/L Potassium 5.2 H (3.6-5.0) mmol/L Chloride 107.0 (98-107) mmol/L Carbon Dioxide 17 L (22-30) mmol/L BUN 53 H (7-17) mg/dL Creatinine 6.7 H (0.7-1.2) mg/dL Glucose 307 H (65-100) mg/dL Calcium 8.2 L (8.4-10.2) mg/dL AST 17 (5-40) units/L ALT 9 (7-56) units/L Alkaline Phosphatase 86 (35-129) units/L Total Protein 6.5 (6.3-8.2) g/dL Albumin 3.6 L (3.9-5) g/dL - Imaging and Cardiology Echo: pending EKG: report reviewed, image reviewed EKG interpretations - Telemetry EKG Rhythm: Sinus Rhythm - EKG Sinus rhythms and dysrhythmias: sinus rhythm Assessment and Plan DDimer elevated - V/Q scan normal. CXR concerning for PNA. Pt's family members report n/v on Saturday evening - aspiration PNA? Troponin elevation currently nonspecific in setting of renal insufficiency, respiratory failure, suspected sepsis. Obtain echo. Follow pulmonary and nephrology recs. The patient has been seen in conjunction with Dr. Marti who agrees with the assessment and plan of care. - Patient Problems (1) Acute respiratory failure Current Visit: Yes Status: Acute (2) Altered mental status Current Visit: Yes Status: Acute (3) Pneumonia Current Visit: Yes Status: Acute Qualifiers: Pneumonia type: due to unspecified organism Laterality: unspecified laterality Lung location: unspecified part of lung Qualified Code(s): J18.9 - Pneumonia, unspecified organism (4) Sepsis Current Visit: Yes Status: Suspected Qualifiers: Sepsis type: sepsis due to unspecified organism Qualified Code(s): A41.9 - Sepsis, unspecified organism (5) Hypertension Current Visit: Yes Status: Chronic Qualifiers: Hypertension type: essential hypertension Qualified Code(s): I10 - Essential (primary) hypertension (6) Diabetes Current Visit: Yes Status: Chronic (7) CKD (chronic kidney disease) Current Visit: Yes Status: Chronic Qualifiers: Chronic kidney disease stage: unspecified stage Qualified Code(s): N18.9 - Chronic kidney disease, unspecified (8) Elevated troponin Current Visit: Yes Status: Acute (9) Anemia Current Visit: Yes Status: Acute (10) Hyperkalemia Current Visit: Yes Status: Acute
--- NOTE | 2018-09-22 15:31 | Event Note ---
Date: 09/22/18 Patient was admitted earlier this morning for the management of acute respiratory failure, right lower lobe pneumonia. Patient was intubated and on mechanical ventilation. Patient was admitted. Continue management per H&P.
--- NOTE | 2018-09-22 17:21 | Consultation ---
History of Present Illness - Reason for Consult chronic renal failure Requesting physician: BIRGIT DE LEON - History of Present Illness 68 year old woman history of CHF, hypertension, diabetes, chronic kidney disease was brought to the emergency room for shortness of breath. The patient was at [place] when her symptoms started. Patient was intubated in the emergency room, she is sedated, review of system is unobtainable. Nurse reported that the patient had copious amount of vomiting in the ER She is now admitted to the intensive care unit. Currently on the ventilator. Renal consult is requested because of elevated BUN/creatinine. Multiple family members at bedside including her son and sisters. Patient was being followed by nephrology services at [facility]. She was advised to start dialysis. However patient has been refusing dialysis according to family. Past History Past Medical History: diabetes, ESRD, hypertension Social history: denies: smoking, alcohol abuse, prescription drug abuse Medications and Allergies Allergies Allergy/AdvReac Type Severity Reaction Status Date / Time Unable to Assess Allergy Verified 09/21/18 22:09 Active Meds: Active Medications Acetaminophen (Tylenol) 650 mg PO Q4H PRN PRN Reason: Pain MILD(1-3)/Fever >100.5/MEJIA Dextrose (D50w (25gm) Syringe) 50 ml IV PRN PRN PRN Reason: Hypoglycemia Enoxaparin Sodium (Lovenox) 30 mg SUB-Q QDAY [facility] Last Admin: 09/22/18 11:15 Dose: 30 mg Documented by: Famotidine (Pepcid) 20 mg IV DAILY [facility] Last Admin: 09/22/18 11:15 Dose: 20 mg Documented by: Fentanyl Citrate (Fentanyl Drip Premix) 2,000 mcg in 100 mls @ 3.7 mls/hr IV TITR [facility]; Protocol Last Admin: 09/22/18 09:00 Dose: 3 mcg/kg/hr, 11.1 mls/hr Documented by: Piperacillin Sod/Tazobactam Sod (Zosyn/Ns 2.25 Gm/50ml) 2.25 gm in 50 mls @ 100 mls/hr IV Q8HR [facility]; Protocol Last Admin: 09/22/18 14:20 Dose: 100 mls/hr Documented by: Propofol (Diprivan 10 Mg/Ml) 1,000 mg in 100 mls @ 2.22 mls/hr IV TITR [facility]; Protocol Last Admin: 09/22/18 13:16 Dose: 5 mcg/kg/min, 2.22 mls/hr Documented by: Insulin Human Lispro (Humalog) 0 unit SUB-Q Q6HR [facility]; Protocol Last Admin: 09/22/18 06:40 Dose: Not Given Documented by: Ondansetron HCl (Zofran) 4 mg IV Q8H PRN PRN Reason: Nausea And Vomiting Sodium Chloride (Sodium Chloride Flush Syringe 10 Ml) 10 ml IV BID [facility] Last Admin: 09/22/18 11:15 Dose: 10 ml Documented by: Sodium Chloride (Sodium Chloride Flush Syringe 10 Ml) 10 ml IV PRN PRN PRN Reason: LINE FLUSH Review of Systems ROS unobtainable: due to endotracheal tube Exam - Vital Signs Vital signs: Vital Signs Pulse Resp Pulse Ox 150 H 42 H 56 L 09/21/18 21:58 09/21/18 21:58 09/21/18 21:58 - General Appearance General appearance: well-developed, well-nourished, appears stated age, intubate d EENT: PERRL, mucous membranes moist Neck: Present: neck supple, trachea midline. Absent: JVD/HJR, Masses Respiratory: Clear to Ascultation Heart: regular, normal heart rate, S1S2, no murmurs Gastrointestinal: Present: normal, normoactive bowel sounds Integumentary: no rash, other (1+ edema) Results - Lab Results 09/21/18 22:56 09/21/18 22:56 Most recent lab results Calcium 8.2 mg/dL (8.4-10.2) L 09/21/18 22:56 Assessment and Plan Impression * Advanced chronic kidney disease. Most likely ESRD * Respiratory failure secondary to pneumonia plus /minus fluid overload * Metabolic acidosis * Hyperkalemia * Diabetes * Hypertension * Sepsis Recommendations * Patient most likely has end-stage renal disease * She is getting acidotic as well as hyperkalemic. Need to initiate dialysis * Discussed with patient's son and sisters at bedside. They're agreeable to dialysis * Consult vascular surgery for access placement. Plan patient initiated dialysis thereafter * Check renal ultrasound to assess kidney size and echogenicity * Check vasculitis workup * Place her on bicarbonate drip overnight * Avoid nephrotoxins * Monitor fluid status and electrolytes closely * Thank you very much for the consultation. Shall follow along with you
[2018-09-22] MEDS: SODIUM BICARBONATE 150 MEQ in D5W 1,000 ML IV SCH (18:01)
[2018-09-22 19:11] LABS: Hepatitis B Surface Antigen Non-Reactive (Negative); Hepatitis C Virus Antibody Non-Reactive (NonReactive)
[2018-09-22] MEDS ORDERED: APRESOLINE ONE (19:31)
[2018-09-22] MEDS: APRESOLINE IV PRN (20:38)
--- NOTE | 2018-09-23 02:37 | XRay Report ---
FINAL REPORT PROCEDURE: XR CHEST 1V AP TECHNIQUE: Chest radiograph anteroposterior view. CPT 65860 HISTORY: resp failure,intubated COMPARISON: 09/21/2018 FINDINGS: Heart: Normal. Mediastinum/Vessels: Normal. Lungs/Pleural space: Lungs are expanded. There are no infiltrates, effusions or pneumothoraces.. Bony thorax: No acute osseous abnormality. Life support devices: Endotracheal tube is the mid trachea. NG tube is in the stomach.. IMPRESSION: Heart size is normal. Lungs are expanded. There are no infiltrates, effusions or pneumothoraces.. Endotracheal tube is the mid trachea. NG tube is in the stomach..
[2018-09-23] MEDS: DIPRIVAN 10 MG/ML 1,000 MG/100 ML BOTTLE IV SCH (03:27)
[2018-09-23 04:44] LABS: Basophils # (Auto) 0.1 K/mm3 (0.0-0.1); Basophils % (Auto) 1.5 % (0.0-1.8); Eosinophils # (Auto) 0.3 K/mm3 (0.0-0.4); Eosinophils % (Auto) 3.5 % (0.0-4.3); Hematocrit 24.4 % (30.3-42.9); Lymphocytes # (Auto) 1.4 K/mm3 (1.2-5.4); Lymphocytes % (Auto) 16.7 % (13.4-35.0); Mean Corpuscular HGB Conc 33 % (30-34); Mean Corpuscular Volume 86 fl (79-97); Monocytes # (Auto) 1.1 K/mm3 (0.0-0.8); Monocytes % (Auto) 12.6 % (0.0-7.3); Platelet Count 173 K/mm3 (140-440); Red Blood Count 2.85 M/mm3 (3.65-5.03); Red Cell Distribution Width 14.8 % (13.2-15.2)
[2018-09-23 04:57] LABS: Calcium 8.3 mg/dL (8.4-10.2)
[2018-09-23] MEDS: fentaNYL DRIP Premix 2,000 MCG/100 ML BAG IV SCH ×2 (05:05→21:34)
[2018-09-23] MEDS: ZOSYN/NS 2.25 GM/50ML 2.25 GM/50 ML BAG IV SCH (05:14)
[2018-09-23] MEDS: HumaLOG SUB-Q SCH ×4 (05:40→19:49)
[2018-09-23] MEDS ORDERED: NACL 0.9% 100 ML IV PRN (08:40)
--- NOTE | 2018-09-23 08:40 | Progress Note ---
Assessment and Plan Impression * Advanced chronic kidney disease. Most likely ESRD * Respiratory failure secondary to pneumonia plus /minus fluid overload * Metabolic acidosis * Hyperkalemia * Diabetes * Hypertension * Sepsis Recommendations * Patient most likely has end-stage renal disease * Serum creatinine noted to be higher and urine output is borderline. 450 mL recorded yesterday. * Patient is acidotic. Renal function is also getting worse. Need to initiate dialysis * Discussed with patient's son and sisters at bedside. They're agreeable to dialysis * Vascular surgery has been consulted for access placement * Initiate dialysis after access * Follow up results of renal ultrasound and vasculitis workup * Continue bicarbonate drip * Avoid nephrotoxins * Monitor fluid status and electrolytes closely Subjective Date of service: 09/23/18 Interval history: Patient remains in the ICU. Unresponsive. Currently on 35% FiO2. Bicarbonate drip infusing Objective - Vital Signs Vital signs: Vital Signs - 12hr 09/22/18 09/22/18 09/22/18 20:38 21:00 21:30 Temperature Pulse Rate 81 96 H 109 H Respiratory 19 18 Rate Blood Pressure 196/67 167/132 O2 Sat by Pulse 100 100 Oximetry 09/22/18 09/22/18 09/22/18 22:00 22:30 23:00 Temperature Pulse Rate 113 H 99 H 92 H Respiratory 23 36 H 20 Rate Blood Pressure 158/71 166/84 O2 Sat by Pulse 100 100 100 Oximetry 09/22/18 09/22/18 09/23/18 23:26 23:30 00:00 Temperature 99.8 F H Pulse Rate 77 75 82 Respiratory 20 20 Rate Blood Pressure 196/67 156/52 O2 Sat by Pulse 100 100 100 Oximetry 09/23/18 09/23/18 09/23/18 00:21 00:30 01:00 Temperature Pulse Rate 75 80 72 Respiratory 15 20 Rate Blood Pressure 123/51 O2 Sat by Pulse 100 100 Oximetry 09/23/18 09/23/18 09/23/18 01:30 02:00 02:30 Temperature Pulse Rate 65 64 58 L Respiratory 20 20 20 Rate Blood Pressure 135/49 128/49 136/53 O2 Sat by Pulse 100 100 100 Oximetry 09/23/18 09/23/18 09/23/18 03:00 03:30 03:57 Temperature Pulse Rate 74 59 L 75 Respiratory 20 20 Rate Blood Pressure 117/57 O2 Sat by Pulse 100 100 Oximetry 09/23/18 09/23/18 09/23/18 04:00 04:15 04:30 Temperature 99.1 F Pulse Rate 56 L 56 L Respiratory 20 21 Rate Blood Pressure 161/61 108/54 O2 Sat by Pulse 100 100 Oximetry 09/23/18 09/23/18 09/23/18 05:00 05:30 06:00 Temperature Pulse Rate 52 L 51 L 50 L Respiratory 20 20 20 Rate Blood Pressure 123/51 121/52 149/49 O2 Sat by Pulse 100 100 100 Oximetry 09/23/18 09/23/18 09/23/18 06:30 08:00 08:30 Temperature 97.7 F Pulse Rate 55 L 59 L Respiratory 20 Rate Blood Pressure 130/47 195/72 O2 Sat by Pulse 100 100 Oximetry - General Appearance General appearance: well-developed, well-nourished, appears stated age, intubated EENT: PERRL, mucous membranes moist Neck: no JVD, no thyromegaly, no carotid bruit, supple Respiratory: Present: Ronchi (bilateral scattered rhonchi) Cardiology: regular, normal heart rate, S1S2, no murmurs Gastrointestinal: normal, normoactive bowel sounds Integumentary: other (trace edema) - Lab 09/23/18 04:24 09/23/18 04:24 Most recent lab results Calcium 8.3 mg/dL (8.4-10.2) L 09/23/18 04:24 Medications & Allergies - Medications Allergies/Adverse Reactions: Allergies Unable to Assess Allergy (Verified 09/21/18 22:09) Pt on Vent Active Medications: Generic Name Dose Route Start Last Admin Trade Name Prakashq PRN Reason Stop Dose Admin Acetaminophen 650 mg 09/22/18 04:14 Tylenol PO Q4H PRN Pain MILD(1-3)/Fever >100.5/MEJIA Dextrose 50 ml 09/22/18 04:14 D50w (25gm) Syringe IV PRN PRN Hypoglycemia Enoxaparin Sodium 30 mg 09/22/18 10:00 09/22/18 11:15 Lovenox SUB-Q 30 mg QDAY KAILA Administration Famotidine 20 mg 09/22/18 10:00 09/22/18 11:15 Pepcid IV 20 mg DAILY KAILA Administration Hydralazine HCl 10 mg 09/22/18 19:30 09/22/18 20:38 Apresoline IV 10 mg Q4HR PRN Administration SBP>160 Fentanyl Citrate 2,000 mcg in 100 mls @ 3.7 mls/hr 09/22/18 02:00 09/23/18 07:18 Fentanyl Drip Premix IV 2 mcg/kg/hr TITR KAILA 7.4 mls/hr Titration Protocol 1 MCG/KG/HR Piperacillin Sod/Tazobactam Sod 2.25 gm in 50 mls @ 100 mls/hr 09/22/18 06:00 09/23/18 05:14 Zosyn/Ns 2.25 Gm/50ml IV 100 mls/hr Q8HR KAILA Administration Protocol Propofol 1,000 mg in 100 mls @ 2.22 mls/hr 09/22/18 11:00 09/23/18 07:31 Diprivan 10 Mg/Ml IV 15 mcg/kg/min TITR KAILA 6.66 mls/hr Titration Protocol 5 MCG/KG/MIN Sodium Bicarbonate 150 meq/ 1,150 mls @ 42 mls/hr 09/22/18 18:00 09/22/18 18:01 Dextrose IV 42 mls/hr DIRECT KAILA Administration Insulin Human Lispro 0 unit 09/22/18 06:00 09/23/18 05:40 Humalog SUB-Q Not Given Q6HR KAILA Protocol Ondansetron HCl 4 mg 09/22/18 04:14 Zofran IV Q8H PRN Nausea And Vomiting Sodium Chloride 10 ml 09/22/18 10:00 09/22/18 21:20 Sodium Chloride Flush Syringe 10 Ml IV 10 ml BID KAILA Administration Sodium Chloride 10 ml 09/22/18 04:14 Sodium Chloride Flush Syringe 10 Ml IV PRN PRN LINE FLUSH
--- NOTE | 2018-09-23 09:21 | Progress Note ---
Assessment and Plan Acute respiratory failure. Reason is unclear, a medial cardiac enzyme changes, non-STEMI was suspected at the ED AMS End-stage renal disease CAD Obesity Recommendation Appreciate cardiology and nephrology consult Vascular access per vascular surgery and hemodialysis per nephrology f/u hospital ventilator bundle, Daily morning sedation vacation and initiate SBT evaluation DVT prophylaxis PPI prophylaxis Critical care time was 31 minutes of [id number] evaluation and coordination of care Subjective Date of service: 09/23/18 Principal diagnosis: acute respiratory failure, end-stage renal disease, AMS Interval history: Intubated Objective Vital Signs - 12hr 09/22/18 09/22/18 09/22/18 21:30 22:00 22:30 Temperature Pulse Rate 109 H 113 H 99 H Pulse Rate [ Right Dorsalis Pedis] Respiratory 18 23 36 H Rate Blood Pressure 167/132 158/71 166/84 O2 Sat by Pulse 100 100 100 Oximetry 09/22/18 09/22/18 09/22/18 23:00 23:26 23:30 Temperature Pulse Rate 92 H 77 75 Pulse Rate [ Right Dorsalis Pedis] Respiratory 20 20 Rate Blood Pressure 196/67 O2 Sat by Pulse 100 100 100 Oximetry 09/23/18 09/23/18 09/23/18 00:00 00:21 00:30 Temperature 99.8 F H Pulse Rate 82 75 80 Pulse Rate [ Right Dorsalis Pedis] Respiratory 20 15 Rate Blood Pressure 156/52 O2 Sat by Pulse 100 100 Oximetry 09/23/18 09/23/18 09/23/18 01:00 01:30 02:00 Temperature Pulse Rate 72 65 64 Pulse Rate [ Right Dorsalis Pedis] Respiratory 20 20 20 Rate Blood Pressure 123/51 135/49 128/49 O2 Sat by Pulse 100 100 100 Oximetry 09/23/18 09/23/18 09/23/18 02:30 03:00 03:30 Temperature Pulse Rate 58 L 74 59 L Pulse Rate [ Right Dorsalis Pedis] Respiratory 20 20 20 Rate Blood Pressure 136/53 117/57 O2 Sat by Pulse 100 100 Oximetry 09/23/18 09/23/18 09/23/18 03:57 04:00 04:15 Temperature 99.1 F Pulse Rate 75 56 L Pulse Rate [ Right Dorsalis Pedis] Respiratory 20 Rate Blood Pressure 161/61 O2 Sat by Pulse 100 100 Oximetry 09/23/18 09/23/1819 04:30 05:00 05:30 Temperature Pulse Rate 56 L 52 L 51 L Pulse Rate [ Right Dorsalis Pedis] Respiratory 21 20 20 Rate Blood Pressure 108/54 123/51 121/52 O2 Sat by Pulse 100 100 100 Oximetry 09/23/18 09/23/18 09/23/18 06:00 06:30 07:00 Temperature Pulse Rate 50 L 55 L 48 L Pulse Rate [ Right Dorsalis Pedis] Respiratory 20 20 20 Rate Blood Pressure 149/49 130/47 128/47 O2 Sat by Pulse 100 100 100 Oximetry 09/23/18 09/23/18 09/23/18 07:30 08:00 08:30 Temperature 97.7 F Pulse Rate 48 L 57 L 82 Pulse Rate [ 56 L Right Dorsalis Pedis] Respiratory 20 18 18 Rate Blood Pressure 149/57 149/57 195/72 O2 Sat by Pulse 100 100 100 Oximetry 09/23/18 09:00 Temperature Pulse Rate 51 L Pulse Rate [ Right Dorsalis Pedis] Respiratory 20 Rate Blood Pressure 157/46 O2 Sat by Pulse 100 Oximetry Constitutional: no acute distress, other (obese patient, intubated on that blood pressure support.) Eyes: non-icteric ENT: oropharynx moist, other (PTT at 22) Effort: normal Ascultation: Bilateral: clear Cardiovascular: regular rate and rhythm Gastrointestinal: normoactive bowel sounds, non-distended Integumentary: normal Extremities: no cyanosis, no edema Neurologic: unable to assess CBC and BMP: 09/23/18 04:24 09/23/18 04:24 ABG, PT/INR, D-dimer: ABG POC ABG pH 7.444 (7.35-7.45) 09/23/18 03:57 POC ABG pCO2 27.2 (35-45) L 09/23/18 03:57 POC ABG pO2 113 (80-105) H 09/23/18 03:57 POC ABG HCO3 18.7 09/23/18 03:57 POC ABG Total CO2 19 09/23/18 03:57 POC ABG O2 Sat 99 09/23/18 03:57 PT/INR, D-dimer D-Dimer 4401.15 ng/mlDDU (0-234) H 09/21/18 22:56 Abnormal lab findings: Abnormal Labs 09/21/18 09/21/18 09/21/18 22:56 22:56 22:56 RBC 3.05 L Hgb 9.0 L Hct 26.9 L Lymph % (Auto) 9.3 L [place] % (Auto) Lymph # 0.7 L [place] # Seg Neutrophils % 84.0 H D-Dimer POC ABG pH POC ABG pCO2 POC ABG pO2 Potassium 5.2 H Chloride Carbon Dioxide 17 L BUN 53 H Creatinine 6.7 H Glucose 307 H POC Glucose Lactic Acid Calcium 8.2 L CK-MB (CK-2) CK-MB (CK-2) Rel Index Troponin T Albumin 3.6 L Triglycerides Cholesterol LDL Cholesterol Direct Salicylates < 0.3 L Acetaminophen 09/21/18 09/21/18 09/21/18 22:56 22:56 22:56 RBC Hgb Hct Lymph % (Auto) [place] % (Auto) Lymph # [place] # Seg Neutrophils % D-Dimer 4401.15 H POC ABG pH POC ABG pCO2 POC ABG pO2 Potassium Chloride Carbon Dioxide BUN Creatinine Glucose POC Glucose Lactic Acid 3.70 H* Calcium CK-MB (CK-2) CK-MB (CK-2) Rel Index Troponin T Albumin Triglycerides Cholesterol LDL Cholesterol Direct Salicylates Acetaminophen < 5.0 L 09/21/18 09/21/18 09/22/18 23:14 23:57 00:48 RBC Hgb Hct Lymph % (Auto) [place] % (Auto) Lymph # [place] # Seg Neutrophils % D-Dimer POC ABG pH 7.234 L 7.322 L POC ABG pCO2 POC ABG pO2 118 H 142 H Potassium Chloride Carbon Dioxide BUN Creatinine Glucose POC Glucose Lactic Acid Calcium CK-MB (CK-2) CK-MB (CK-2) Rel Index Troponin T 0.062 H D Albumin Triglycerides 208 H Cholesterol 206 H LDL Cholesterol Direct 143 H Salicylates Acetaminophen 09/22/18 09/22/18 09/22/18 04:50 05:03 06:43 RBC Hgb Hct Lymph % (Auto) [place] % (Auto) Lymph # [place] # Seg Neutrophils % D-Dimer POC ABG pH 7.556 H POC ABG pCO2 22.4 L POC ABG pO2 176 H Potassium Chloride Carbon Dioxide BUN Creatinine Glucose POC Glucose 116 H Lactic Acid Calcium CK-MB (CK-2) 4.1 H CK-MB (CK-2) Rel Index 4.7 H Troponin T 0.107 H* D Albumin Triglycerides Cholesterol LDL Cholesterol Direct Salicylates Acetaminophen 09/22/18 09/22/18 09/22/18 09:12 10:26 18:00 RBC Hgb Hct Lymph % (Auto) [place] % (Auto) Lymph # [place] # Seg Neutrophils % D-Dimer POC ABG pH POC ABG pCO2 POC ABG pO2 Potassium Chloride Carbon Dioxide BUN Creatinine 6.7 H Glucose POC Glucose 124 H Lactic Acid Calcium CK-MB (CK-2) CK-MB (CK-2) Rel Index Troponin T 0.074 H D Albumin Triglycerides Cholesterol LDL Cholesterol Direct Salicylates Acetaminophen 09/23/18 09/23/18 09/23/18 03:57 04:24 04:24 RBC 2.85 L Hgb 8.0 L Hct 24.4 L Lymph % (Auto) [place] % (Auto) 12.6 H Lymph # [place] # 1.1 H Seg Neutrophils % D-Dimer POC ABG pH POC ABG pCO2 27.2 L POC ABG pO2 113 H Potassium Chloride 113.4 H Carbon Dioxide 19 L BUN 54 H Creatinine 7.0 H Glucose POC Glucose Lactic Acid Calcium 8.3 L CK-MB (CK-2) CK-MB (CK-2) Rel Index Troponin T Albumin Triglycerides Cholesterol LDL Cholesterol Direct Salicylates Acetaminophen
--- NOTE | 2018-09-23 09:33 | Progress Note ---
Assessment and Plan Echo reviewed - EF 50-55%, mild LVH, LA mildly dilated, mild MR, trace TR, right pleural effusion. Troponin elevation currently nonspecific in setting of renal insufficiency, respiratory failure, suspected sepsis. For vascular access placement per vascular surgery and hemodialysis per nephrology. Follow pulmonary and nephrology recs. The patient has been seen in conjunction with Dr. Marti who agrees with the assessment and plan of care. - Patient Problems (1) Acute respiratory failure Current Visit: Yes Status: Acute (2) Altered mental status Current Visit: Yes Status: Acute (3) Pneumonia Current Visit: Yes Status: Acute Qualifiers: Pneumonia type: due to unspecified organism Laterality: unspecified laterality Lung location: unspecified part of lung Qualified Code(s): J18.9 - Pneumonia, unspecified organism (4) Sepsis Current Visit: Yes Status: Suspected Qualifiers: Sepsis type: sepsis due to unspecified organism Qualified Code(s): A41.9 - Sepsis, unspecified organism (5) Hypertension Current Visit: Yes Status: Chronic Qualifiers: Hypertension type: essential hypertension Qualified Code(s): I10 - Essential (primary) hypertension (6) Diabetes Current Visit: Yes Status: Chronic (7) CKD (chronic kidney disease) Current Visit: Yes Status: Chronic Qualifiers: Chronic kidney disease stage: unspecified stage Qualified Code(s): N18.9 - Chronic kidney disease, unspecified (8) Elevated troponin Current Visit: Yes Status: Acute (9) Anemia Current Visit: Yes Status: Acute (10) Hyperkalemia Current Visit: Yes Status: Acute Subjective Date of service: 09/23/18 Principal diagnosis: acute respiratory failure, end-stage renal disease, AMS Interval history: pt remains intubated, sedated. in SR/SB on telemetry. sons at bedside. Objective Last Vital Signs Temp 97.7 F 09/23/18 08:00 Pulse 51 L 09/23/18 09:00 Resp 20 09/23/18 09:00 BP 157/46 09/23/18 09:00 Pulse Ox 100 09/23/18 09:00 - Physical Examination General: Other (intubated, sedated) Neck: Positive: neck supple, trachea midline. Negative: JVD/HJR, Masses Cardiac: Positive: Regular Rhythm, S1/S2 Lungs: Positive: Decreased Breath Sounds, Oxygen, Ventilated Respirations Neuro: Positive: Other (intubated, sedated) Skin: Negative: Rash, Wound Musculoskeletal: No Pain Extremities: Present: edema (trace BLE) - Labs and Meds Cardiac Enzymes 09/22/18 Range/Units 10:26 CK-MB (CK-2) 3.1 (0.0-4.0) ng/mL CBC 09/23/18 Range/Units 04:24 WBC 8.4 (4.5-11.0) K/mm3 RBC 2.85 L (3.65-5.03) M/mm3 Hgb 8.0 L (10.1-14.3) gm/dl Hct 24.4 L (30.3-42.9) % Plt Count 173 (140-440) K/mm3 Lymph # 1.4 (1.2-5.4) K/mm3 [place] # 1.1 H (0.0-0.8) K/mm3 Eos # 0.3 (0.0-0.4) K/mm3 Baso # 0.1 (0.0-0.1) K/mm3 Comprehensive Metabolic Panel 09/22/18 09/23/18 Range/Units 18:00 04:24 Sodium 145 145 (137-145) mmol/L Potassium 4.5 (3.6-5.0) mmol/L Chloride 113.4 H (98-107) mmol/L Carbon Dioxide 19 L (22-30) mmol/L BUN 54 H (7-17) mg/dL Creatinine 6.7 H 7.0 H (0.7-1.2) mg/dL Glucose 87 (65-100) mg/dL Calcium 8.3 L (8.4-10.2) mg/dL - Imaging and Cardiology EKG: report reviewed, image reviewed Echo: report reviewed - Telemetry EKG Rhythm: Sinus Bradycardia - EKG Sinus rhythms and dysrhythmias: sinus rhythm
[2018-09-23] MEDS: SODIUM CHLORIDE FLUSH SYRINGE 10 ML IV SCH ×2 (10:18→22:00)
[2018-09-23] MEDS: PEPCID IV SCH (10:18)
[2018-09-23] MEDS: LOVENOX SUB-Q SCH (10:18)
[2018-09-23] MEDS: ATIVAN IV PRN ×3 (10:23→19:50)
[2018-09-23] MEDS: APRESOLINE IV PRN ×2 (12:27→21:35)
[2018-09-23] MEDS ORDERED: SIMPLE SYRUP FEEDTUBE PRN ×2 (13:57)
[2018-09-23] MEDS ORDERED: SODIUM BICARBONATE FEEDTUBE PRN (13:57)
[2018-09-23] MEDS ORDERED: PANCREAZE DR 10,500 UNIT FEEDTUBE PRN (13:57)
[2018-09-23 16:39] LABS: Bacteria,Urine 1+ /HPF (Negative); Bilirubin,Urine NEG (Negative); Blood,Urine NEG (Negative); Color,Urine Yellow (Yellow); Hyaline Casts,Urine 3 /LPF; Mucus,Urine FEW /HPF; Protein,Urine >500 mg/dL (Negative); Urobilinogen,Urine < 2.0 mg/dL (<2.0)
[2018-09-23 16:41] LABS: Creatinine,Urine 80.7 mg/dL (0.1-20.0); Fractional Sodium Excretion 3.6
--- NOTE | 2018-09-23 17:25 | Progress Note ---
Assessment and Plan Assessment and plan: 68 year old woman history of CHF, hypertension, diabetes, chronic kidney disease was brought to the emergency room for shortness of breath. The history is per the son Roshan, he stated he was not at the scene, the patient was at [facility] when her symptoms started. Patient was intubated in the emergency room, she is sedated, review of system is unobtainable. Nurse reported that the patient had copious amount of vomiting in the ER Acute respiratory failure Sepsis Pneumonia, probably most likely aspiration Abnormal d-dimer, cardiac enzymes Metabolic encephalopathy Hypertension NSTEMI Type 2 -Troponin elevation currently nonspecific in setting of renal insufficiency, respiratory failure, susp Diabetes Chronic kidney disease CHF, stable Plan Continue supportive care in the ICU Continue antibiotics IV Zosyn, follow cultures, hold IV fluid - CHF Obtain VQ scan,v/q notified, check cardiac enzymes Echo reviewed - EF 50-55%, mild LVH, LA mildly dilated, mild MR, trace TR, right pleural effusion. Critical care input noted Vascular access being arranged by cycle analyst Check finger sticks, initiate insulin sliding scale DVT prophylaxis The high probability of a clinically significant, sudden or life threatening deterioration of the [45] system(s) required my full and direct attention, intervention and personal management. The aggregate critical care time was [pulmonary, cardiac, renal] minutes. This time is in addition to time spent performing reported procedures but includes the following: [x] Data Review and interpretation [x] Patient assessment and monitoring of vital signs [x] Documentation [x] Medication orders and management History Interval history: Patient is examined this morning he remains intubated agitated. FAMILY VISI Eloyg. no other adverse event reported to me.. Hospitalist Physical - Physical exam Narrative exam: VITAL SIGNS: Reviewed. GENERAL: The patient appeared agitated moderate respiratory distress currently on mechanical ventilation. What vital signs as documented. HEAD: No signs of head trauma. EYES: Pupils are equal. Extraocular motions intact. EARS: Hearing grossly intact. MOUTH: G-tube in place NECK: No adenopathy, no JVD. CHEST: Chest with clear breath sounds bilaterally. No wheezes, rales, or rhonchi. CARDIAC: Regular rate and rhythm. S1 and S2, without murmurs, gallops, or rubs. VASCULAR: No Edema. Peripheral pulses normal and equal in all extremities. ABDOMEN: Soft, without detectable tenderness. No sign of distention. No rebound or guarding, and no masses palpated. Bowel Sounds normal. MUSCULOSKELETAL: Good range of motion of all major joints. Extremities without clubbing, cyanosis or edema. NEUROLOGIC EXAM: Awake orientation unable to assess at this time. No focal sensory or strength deficits. Follows some comment PSYCHIATRIC: Unable to assess SKIN: No rash or lesions. - Constitutional Vitals: Temp Pulse Resp BP Pulse Ox 98.8 F 93 H 22 153/49 100 09/23/18 16:00 09/23/18 16:30 09/23/18 16:30 09/23/18 16:30 09/23/18 16:30 General appearance: Present: other (intubated, sedated) Results - Labs CBC & Chem 7: 09/23/18 04:24 09/23/18 04:24 Labs: Laboratory Last Values WBC 8.4 K/mm3 (4.5-11.0) 09/23/18 04:24 RBC 2.85 M/mm3 (3.65-5.03) L 09/23/18 04:24 Hgb 8.0 gm/dl (10.1-14.3) L 09/23/18 04:24 Hct 24.4 % (30.3-42.9) L 09/23/18 04:24 MCV 86 fl (79-97) 09/23/18 04:24 MCH 28 pg (28-32) 09/23/18 04:24 MCHC 33 % (30-34) 09/23/18 04:24 RDW 14.8 % (13.2-15.2) 09/23/18 04:24 Plt Count 173 K/mm3 (140-440) 09/23/18 04:24 Lymph % (Auto) 16.7 % (13.4-35.0) 09/23/18 04:24 [place] % (Auto) 12.6 % (0.0-7.3) H 09/23/18 04:24 Eos % (Auto) 3.5 % (0.0-4.3) 09/23/18 04:24 Baso % (Auto) 1.5 % (0.0-1.8) 09/23/18 04:24 Lymph # 1.4 K/mm3 (1.2-5.4) 09/23/18 04:24 [place] # 1.1 K/mm3 (0.0-0.8) H 09/23/18 04:24 Eos # 0.3 K/mm3 (0.0-0.4) 09/23/18 04:24 Baso # 0.1 K/mm3 (0.0-0.1) 09/23/18 04:24 Seg Neutrophils % 65.7 % (40.0-70.0) 09/23/18 04:24 Seg Neutrophils # 5.5 K/mm3 (1.8-7.7) 09/23/18 04:24 D-Dimer 4401.15 ng/mlDDU (0-234) H 09/21/18 22:56 POC ABG pH 7.444 (7.35-7.45) 09/23/18 03:57 POC ABG pCO2 27.2 (35-45) L 09/23/18 03:57 POC ABG pO2 113 (80-105) H 09/23/18 03:57 POC ABG HCO3 18.7 09/23/18 03:57 POC ABG Total CO2 19 09/23/18 03:57 POC ABG O2 Sat 99 09/23/18 03:57 POC ABG Base Excess -5 09/23/18 03:57 FiO2 45 % 09/22/18 05:03 Sodium 145 mmol/L (137-145) 09/23/18 04:24 Potassium 4.5 mmol/L (3.6-5.0) 09/23/18 04:24 Chloride 113.4 mmol/L (98-107) H 09/23/18 04:24 Carbon Dioxide 19 mmol/L (22-30) L 09/23/18 04:24 Anion Gap 17 mmol/L 09/23/18 04:24 BUN 54 mg/dL (7-17) H 09/23/18 04:24 Creatinine 7.0 mg/dL (0.7-1.2) H 09/23/18 04:24 Estimated GFR 7 ml/min 09/23/18 04:24 BUN/Creatinine Ratio 8 % 09/23/18 04:24 Glucose 87 mg/dL (65-100) 09/23/18 04:24 POC Glucose 100 (70-105) 09/23/18 11:33 Lactic Acid 1.70 mmol/L (0.7-2.0) 09/22/18 04:50 Calcium 8.3 mg/dL (8.4-10.2) L 09/23/18 04:24 Total Bilirubin 0.20 mg/dL (0.1-1.2) 09/21/18 22:56 AST 17 units/L (5-40) 09/21/18 22:56 ALT 9 units/L (7-56) 09/21/18 22:56 Alkaline Phosphatase 86 units/L (35-129) 09/21/18 22:56 Ammonia 57.0 umol/L (25-60) 09/21/18 22:56 Total Creatine Kinase 81 units/L (30-135) 09/22/18 10:26 CK-MB (CK-2) 3.1 ng/mL (0.0-4.0) 09/22/18 10:26 CK-MB (CK-2) Rel Index 3.8 (0-4) 09/22/18 10:26 Troponin T 0.074 ng/mL (0.00-0.029) H D 09/22/18 10:26 Total Protein 6.5 g/dL (6.3-8.2) 09/21/18 22:56 Albumin 3.6 g/dL (3.9-5) L 09/21/18 22:56 Albumin/Globulin Ratio 1.2 % 09/21/18 22:56 Triglycerides 208 mg/dL (2-149) H 09/21/18 23:57 Cholesterol 206 mg/dL (50-199) H 09/21/18 23:57 LDL Cholesterol Direct 143 mg/dL (50-130) H 09/21/18 23:57 HDL Cholesterol 40 mg/dL (40-59) 09/21/18 23:57 Cholesterol/HDL Ratio 5.15 % 09/21/18 23:57 Urine Color Yellow (Yellow) 09/23/18 16:00 Urine Turbidity Clear (Clear) 09/23/18 16:00 Urine pH 7.0 (5.0-7.0) 09/23/18 16:00 Ur Specific [place] 1.009 (1.003-1.030) 09/23/18 16:00 Urine Protein >500 mg/dL (Negative) 09/23/18 16:00 Urine Glucose (UA) 50 mg/dL (Negative) 09/23/18 16:00 Urine Ketones Neg mg/dL (Negative) 09/23/18 16:00 Urine Blood Neg (Negative) 09/23/18 16:00 Urine Nitrite Neg (Negative) 09/23/18 16:00 Urine Bilirubin Neg (Negative) 09/23/18 16:00 Urine Urobilinogen < 2.0 mg/dL (<2.0) 09/23/18 16:00 Ur Leukocyte Esterase Sm (Negative) 09/23/18 16:00 Urine WBC (Auto) 13.0 /HPF (0.0-6.0) H 09/23/18 16:00 Urine RBC (Auto) 1.0 /HPF (0.0-6.0) 09/23/18 16:00 U Epithel Cells (Auto) < 1.0 /HPF (0-13.0) 09/23/18 16:00 Urine Bacteria (Auto) 1+ /HPF (Negative) 09/23/18 16:00 Hyaline Casts 3 /LPF 09/23/18 16:00 Urine Mucus Few /HPF 09/23/18 16:00 Urine Creatinine 80.7 mg/dL (0.1-20.0) H 09/23/18 16:00 Urine Sodium 66 mmol/L 09/23/18 16:00 Fraction Sodium Excret 3.6 09/23/18 16:00 Salicylates < 0.3 mg/dL (2.8-20.0) L 09/21/18 22:56 Acetaminophen < 5.0 ug/mL (10.0-30.0) L 09/21/18 22:56 Plasma/Serum Alcohol < 0.01 % (0-0.07) 09/21/18 22:56 Hepatitis A IgM Ab Non-reactive (NonReactive) 09/22/18 18:06 Hep Bs Antigen Non-reactive (Negative) 09/22/18 18:06 Hep B Core IgM Ab Non-reactive (NonReactive) 09/22/18 18:06 Hepatitis C Antibody Non-reactive (NonReactive) 09/22/18 18:06 Nutrition/Malnutrition Assess - Dietary Evaluation Nutrition/Malnutrition Findings: Nutrition Notes Start: 09/23/18 13:24 Freq: Status: Active Protocol: Document 09/23/18 13:24 TW (Rec: 09/23/18 13:56 TW [id number]) Co-Sign 09/23/18 13:24 LP Nutrition Notes Need for Assessment generated from: MD Order Initial or Follow up Assessment Current Diagnosis CKD(stage I-IV) Diabetes Sepsis Hypertension Heart Failure Respiratory Failure Other Pertinent Diagnosis AMS, pneumonia Current Diet NPO Labs/Tests BUN 54 Cr 7.0 Pertinent Medications Reviewed Height 5 ft 3 in Weight 74 kg Andrew Body Weight (kg) 52.27 BMI 28.9 Weight Status Overweight Subjective/Other Information MD consult for TF. Pt on vent. Burn Absent Trauma Absent #1 Nutrition Diagnosis Inadequate oral intake Etiology vent status As Evidenced by Signs and Symptoms NPO order Is patient on ventilator? Yes Is Patient Ambulatory and/or Out of Bed No REE-([place] Jeor-confined to bed) 1498.500 Calculation Used for Recommendations [place] [facility] Additional Notes pro 89-148g/day (1.2-2g/kg) fluid 1ml/kcal or per MD order Nutrition Intervention Nutrition Support: Nepro 1.8 at 35ml/hr Water flush of 150 ml q4h or per MD order Kcal 1,512 Protein (gm) 68 Fluid (mL) 610 Goal #1 TF start Goal #2 TF tolerance Anticipated Discharge Needs: Unable to determine Follow-Up By: 09/25/18 Additional Comments F/U for TF start/ tolerance
[2018-09-23] MEDS ORDERED: VERSED IV ONE ×2 (17:27→17:30)
[2018-09-23] MEDS ORDERED: VERSED IV NR (18:00)
--- NOTE | 2018-09-23 18:29 | Operative Report ---
Operative Report Operative Report: Operative note: Date: 09/23/2018 Preoperative diagnosis: Acute renal failure Postoperative diagnosis: Same. Operation: right internal jugular Vas-Cath insertion Surgeon: Cecilia Camejo. Asst.: None Anesthesia: Local EBL: Minimal Findings: None Indications: Acute renal failure requiring initiation of hemodialysis. Placement of catheter was discussed with family and they agreed, signed informed consent. Operative details: Patient prepped and draped right neck in a sterile fashion. Right internal jugular vein was accessed under ultrasound guidance with micropuncture needle and exchanged for micropuncture sheath. J wire was advanced in the right internal jugular vein and advanced into IVC under fluoroscopic guidance. Skin incision was made with 11 blade and serially dilated with subsequent insertion of Vas-Cath catheter 11.5 Fr 15cm in length. Ports were checked for good flow, flushed with saline and locked with 1.4 and 1.2 mL of heparin. Catheter was secured in place with 3-0 silk stitches and sterile dressing applied. She tolerated the procedure well.
--- NOTE | 2018-09-23 19:27 | XRay Report ---
FINAL REPORT EXAM: XRAY CHEST SINGLE VIEW HISTORY: VASCATH PLACEMENT TECHNIQUE: Chest portable semi upright PRIORS: Comparison is dated September 23, 2018 FINDINGS: There is confluent increased opacity within the left lower lobe which is increased from prior study. ET tube is again identified tip approximately midway between the thoracic inlet and the osvaldo. OG tu be noted distal tip not identified the distal end descends below the diaphragm. There is a right IJ c atheter which is new since the prior exam catheter tip at the SVC. No evidence for pneumothorax post catheter placement. Pulmonary vasculature is unremarkable. Cardiac and mediastinal contours do not ap pear changed IMPRESSION: Left lower lobe infiltrate/atelectasis increasing from prior exam Right IJ catheter and other life-support devices appear in satisfactory position.
[2018-09-23] MEDS ORDERED: NACL 0.9% 1000 ML 2,000 ML ONE (19:31)
[2018-09-23] MEDS: SODIUM BICARBONATE 150 MEQ in D5W 1,000 ML IV SCH (19:50)
[2018-09-23] MEDS ORDERED: HEPARIN 10,000 UNITS/10 ML ONE (23:00)
[2018-09-24] MEDS: APRESOLINE IV PRN ×4 (01:24→21:24)
[2018-09-24] MEDS: ATIVAN IV PRN ×4 (01:24→22:03)
[2018-09-24] MEDS: fentaNYL DRIP Premix 2,000 MCG/100 ML BAG IV SCH ×2 (04:17→19:17)
[2018-09-24 05:00] LABS: Hematocrit 22.5 % (30.3-42.9); Hemoglobin 7.6 gm/dl (10.1-14.3); Mean Corpuscular HGB Conc 34 % (30-34); Mean Corpuscular Volume 85 fl (79-97); Platelet Count 176 K/mm3 (140-440); Red Blood Count 2.66 M/mm3 (3.65-5.03); Red Cell Distribution Width 14.8 % (13.2-15.2)
[2018-09-24] MEDS: HumaLOG SUB-Q SCH ×3 (05:37→13:08)
--- NOTE | 2018-09-24 09:28 | Progress Note ---
Assessment and Plan Acute respiratory failure. Fever. Prior CXR w/o infiltrates,BC negative AMS End-stage renal disease CAD Obesity Recommendation Update CXR High D dimer noted earlier in the context of ESRD,acute illness. Q scan/CTA could not be preformed. Will do US screen x DVT. Consider Rocephin/Vanc or AZT ,check with ID f/u hospital ventilator bundle, Daily morning sedation vacation and initiate SBT evaluation DVT prophylaxis Critical care time was 31 minutes of [id number] evaluation and coordination of care Subjective Date of service: 09/24/18 Principal diagnosis: acute respiratory failure, end-stage renal disease, AMS Interval history: Intubated Objective Vital Signs - 12hr 09/23/18 09/23/18 09/23/18 21:30 21:35 21:45 Temperature Pulse Rate 84 95 H 77 Respiratory 20 Rate Blood Pressure 223/83 223/83 219/74 O2 Sat by Pulse 100 Oximetry O2 Sat by Pulse Oximetry [ Anterior Bilateral Throughout] 09/23/18 09/23/18 09/23/18 21:46 22:00 22:06 Temperature 98.2 F Pulse Rate 86 87 62 Respiratory 21 20 20 Rate Blood Pressure 219/74 223/83 203/86 O2 Sat by Pulse 100 100 Oximetry O2 Sat by Pulse 100 Oximetry [ Anterior Bilateral Throughout] 09/23/18 09/23/18 09/23/18 22:15 22:30 22:46 Temperature Pulse Rate 86 81 73 Respiratory 20 20 20 Rate Blood Pressure 151/53 152/51 142/46 O2 Sat by Pulse 100 100 100 Oximetry O2 Sat by Pulse Oximetry [ Anterior Bilateral Throughout] 09/23/18 09/23/18 09/23/18 23:00 23:14 23:16 Temperature Pulse Rate 71 93 H 109 H Respiratory 20 26 H Rate Blood Pressure 155/52 193/66 193/66 O2 Sat by Pulse 100 100 100 Oximetry O2 Sat by Pulse Oximetry [ Anterior Bilateral Throughout] 09/23/18 09/23/18 09/24/18 23:30 23:46 00:00 Temperature 100.1 F H Pulse Rate 99 H 88 77 Respiratory 14 20 20 Rate Blood Pressure 193/66 164/52 173/50 O2 Sat by Pulse 100 100 100 Oximetry O2 Sat by Pulse Oximetry [ Anterior Bilateral Throughout] 09/24/18 09/24/18 09/24/18 00:16 00:30 00:45 Temperature Pulse Rate 72 66 60 Respiratory 20 20 20 Rate Blood Pressure 155/50 145/46 155/48 O2 Sat by Pulse 100 100 100 Oximetry O2 Sat by Pulse Oximetry [ Anterior Bilateral Throughout] 09/24/18 09/24/18 09/24/18 01:00 01:16 01:24 Temperature Pulse Rate 56 L 93 H 114 H Respiratory 20 28 H Rate Blood Pressure 152/44 188/73 188/73 O2 Sat by Pulse 100 100 Oximetry O2 Sat by Pulse Oximetry [ Anterior Bilateral Throughout] 09/24/18 09/24/18 09/24/18 01:30 01:45 02:00 Temperature Pulse Rate 88 92 H 86 Respiratory 20 20 20 Rate Blood Pressure 197/64 173/59 160/54 O2 Sat by Pulse 100 100 100 Oximetry O2 Sat by Pulse Oximetry [ Anterior Bilateral Throughout] 09/24/18 09/24/18 09/24/18 02:15 02:30 02:46 Temperature Pulse Rate 79 81 74 Respiratory 20 15 20 Rate Blood Pressure 149/50 151/59 131/42 O2 Sat by Pulse 100 99 100 Oximetry O2 Sat by Pulse Oximetry [ Anterior Bilateral Throughout] 09/24/18 09/24/18 09/24/18 03:00 03:15 03:30 Temperature Pulse Rate 74 72 67 Respiratory 20 21 20 Rate Blood Pressure 135/48 130/49 139/51 O2 Sat by Pulse 100 100 100 Oximetry O2 Sat by Pulse Oximetry [ Anterior Bilateral Throughout] 09/24/18 09/24/18 09/24/18 03:46 04:00 04:16 Temperature 100.0 F H Pulse Rate 89 79 65 Respiratory 18 18 20 Rate Blood Pressure 170/61 170/61 171/56 O2 Sat by Pulse 100 100 100 Oximetry O2 Sat by Pulse Oximetry [ Anterior Bilateral Throughout] 09/24/18 09/24/18 09/24/18 04:30 04:46 04:50 Temperature Pulse Rate 63 61 61 Respiratory 20 20 Rate Blood Pressure 163/52 165/54 165/54 O2 Sat by Pulse 100 100 100 Oximetry O2 Sat by Pulse Oximetry [ Anterior Bilateral Throughout] 09/24/18 09/24/18 09/24/18 04:56 05:00 05:16 Temperature Pulse Rate 59 L 88 Respiratory 16 23 Rate Blood Pressure 158/48 192/117 O2 Sat by Pulse 100 100 100 Oximetry O2 Sat by Pulse Oximetry [ Anterior Bilateral Throughout] 09/24/18 09/24/18 09/24/18 05:30 05:33 05:46 Temperature Pulse Rate 71 71 77 Respiratory 16 16 Rate Blood Pressure 192/117 192/117 129/46 O2 Sat by Pulse 100 100 Oximetry O2 Sat by Pulse Oximetry [ Anterior Bilateral Throughout] 09/24/18 09/24/18 09/24/18 06:00 06:15 06:30 Temperature Pulse Rate 82 83 84 Respiratory 16 16 16 Rate Blood Pressure 119/50 121/45 113/42 O2 Sat by Pulse 100 100 100 Oximetry O2 Sat by Pulse Oximetry [ Anterior Bilateral Throughout] 09/24/18 09/24/18 09/24/18 06:45 07:00 07:16 Temperature Pulse Rate 87 83 79 Respiratory 16 16 16 Rate Blood Pressure 114/42 104/44 115/45 O2 Sat by Pulse 100 100 100 Oximetry O2 Sat by Pulse Oximetry [ Anterior Bilateral Throughout] 09/24/18 09/24/18 09/24/18 07:30 07:45 08:00 Temperature Pulse Rate 82 72 86 Respiratory 17 16 17 Rate Blood Pressure 123/46 132/48 141/58 O2 Sat by Pulse 100 100 100 Oximetry O2 Sat by Pulse Oximetry [ Anterior Bilateral Throughout] 09/24/18 09/24/18 09/24/18 08:15 08:30 08:46 Temperature Pulse Rate 69 106 H 76 Respiratory 16 17 16 Rate Blood Pressure 118/46 138/64 151/53 O2 Sat by Pulse 100 99 100 Oximetry O2 Sat by Pulse Oximetry [ Anterior Bilateral Throughout] 09/24/18 09:00 Temperature Pulse Rate 77 Respiratory 17 Rate Blood Pressure 151/53 O2 Sat by Pulse 100 Oximetry O2 Sat by Pulse Oximetry [ Anterior Bilateral Throughout] Constitutional: no acute distress, other (obese patient, intubated on that blood pressure support.) Eyes: non-icteric ENT: oropharynx moist, other (PTT at 22) Effort: normal Ascultation: Bilateral: clear Cardiovascular: regular rate and rhythm Gastrointestinal: normoactive bowel sounds, non-distended Integumentary: normal Extremities: no cyanosis, no edema Neurologic: other (RASS -1) CBC and BMP: 09/24/18 04:28 09/24/18 04:28 ABG, PT/INR, D-dimer: ABG POC ABG pH 7.551 (7.35-7.45) H 09/24/18 04:56 POC ABG pCO2 32.0 (35-45) L 09/24/18 04:56 POC ABG pO2 133 (80-105) H 09/24/18 04:56 POC ABG HCO3 28.0 09/24/18 04:56 POC ABG Total CO2 29 09/24/18 04:56 POC ABG O2 Sat 99 09/24/18 04:56 PT/INR, D-dimer D-Dimer 4401.15 ng/mlDDU (0-234) H 09/21/18 22:56 Abnormal lab findings: Abnormal Labs 09/21/18 09/21/18 09/21/18 22:56 22:56 22:56 RBC 3.05 L Hgb 9.0 L Hct 26.9 L Lymph % (Auto) 9.3 L [place] % (Auto) Lymph # 0.7 L [place] # Seg Neutrophils % 84.0 H D-Dimer POC ABG pH POC ABG pCO2 POC ABG pO2 Potassium 5.2 H Chloride Carbon Dioxide 17 L BUN 53 H Creatinine 6.7 H Glucose 307 H POC Glucose Lactic Acid Calcium 8.2 L CK-MB (CK-2) CK-MB (CK-2) Rel Index Troponin T Albumin 3.6 L Triglycerides Cholesterol LDL Cholesterol Direct Urine WBC (Auto) Urine Creatinine Salicylates < 0.3 L Acetaminophen 09/21/18 09/21/18 09/21/18 22:56 22:56 22:56 RBC Hgb Hct Lymph % (Auto) [place] % (Auto) Lymph # [place] # Seg Neutrophils % D-Dimer 4401.15 H POC ABG pH POC ABG pCO2 POC ABG pO2 Potassium Chloride Carbon Dioxide BUN Creatinine Glucose POC Glucose Lactic Acid 3.70 H* Calcium CK-MB (CK-2) CK-MB (CK-2) Rel Index Troponin T Albumin Triglycerides Cholesterol LDL Cholesterol Direct Urine WBC (Auto) Urine Creatinine Salicylates Acetaminophen < 5.0 L 09/21/18 09/21/18 09/22/18 23:14 23:57 00:48 RBC Hgb Hct Lymph % (Auto) [place] % (Auto) Lymph # [place] # Seg Neutrophils % D-Dimer POC ABG pH 7.234 L 7.322 L POC ABG pCO2 POC ABG pO2 118 H 142 H Potassium Chloride Carbon Dioxide BUN Creatinine Glucose POC Glucose Lactic Acid Calcium CK-MB (CK-2) CK-MB (CK-2) Rel Index Troponin T 0.062 H D Albumin Triglycerides 208 H Cholesterol 206 H LDL Cholesterol Direct 143 H Urine WBC (Auto) Urine Creatinine Salicylates Acetaminophen 09/22/18 09/22/18 09/22/18 04:50 05:03 06:43 RBC Hgb Hct Lymph % (Auto) [place] % (Auto) Lymph # [place] # Seg Neutrophils % D-Dimer POC ABG pH 7.556 H POC ABG pCO2 22.4 L POC ABG pO2 176 H Potassium Chloride Carbon Dioxide BUN Creatinine Glucose POC Glucose 116 H Lactic Acid Calcium CK-MB (CK-2) 4.1 H CK-MB (CK-2) Rel Index 4.7 H Troponin T 0.107 H* D Albumin Triglycerides Cholesterol LDL Cholesterol Direct Urine WBC (Auto) Urine Creatinine Salicylates Acetaminophen 09/22/18 09/22/18 09/22/18 09:12 10:26 18:00 RBC Hgb Hct Lymph % (Auto) [place] % (Auto) Lymph # [place] # Seg Neutrophils % D-Dimer POC ABG pH POC ABG pCO2 POC ABG pO2 Potassium Chloride Carbon Dioxide BUN Creatinine 6.7 H Glucose POC Glucose 124 H Lactic Acid Calcium CK-MB (CK-2) CK-MB (CK-2) Rel Index Troponin T 0.074 H D Albumin Triglycerides Cholesterol LDL Cholesterol Direct Urine WBC (Auto) Urine Creatinine Salicylates Acetaminophen 09/23/18 09/23/18 09/23/18 03:57 04:24 04:24 RBC 2.85 L Hgb 8.0 L Hct 24.4 L Lymph % (Auto) [place] % (Auto) 12.6 H Lymph # [place] # 1.1 H Seg Neutrophils % D-Dimer POC ABG pH POC ABG pCO2 27.2 L POC ABG pO2 113 H Potassium Chloride 113.4 H Carbon Dioxide 19 L BUN 54 H Creatinine 7.0 H Glucose POC Glucose Lactic Acid Calcium 8.3 L CK-MB (CK-2) CK-MB (CK-2) Rel Index Troponin T Albumin Triglycerides Cholesterol LDL Cholesterol Direct Urine WBC (Auto) Urine Creatinine Salicylates Acetaminophen 09/23/18 09/23/18 09/23/18 16:00 16:00 18:47 RBC Hgb Hct Lymph % (Auto) [place] % (Auto) Lymph # [place] # Seg Neutrophils % D-Dimer POC ABG pH POC ABG pCO2 POC ABG pO2 Potassium Chloride Carbon Dioxide BUN Creatinine Glucose POC Glucose 115 H Lactic Acid Calcium CK-MB (CK-2) CK-MB (CK-2) Rel Index Troponin T Albumin Triglycerides Cholesterol LDL Cholesterol Direct Urine WBC (Auto) 13.0 H Urine Creatinine 80.7 H Salicylates Acetaminophen 09/23/18 09/24/18 09/24/18 23:53 04:28 04:28 RBC 2.66 L Hgb 7.6 L Hct 22.5 L Lymph % (Auto) [place] % (Auto) Lymph # [place] # Seg Neutrophils % D-Dimer POC ABG pH POC ABG pCO2 POC ABG pO2 Potassium Chloride Carbon Dioxide BUN 27 H Creatinine 4.8 H Glucose 129 H POC Glucose 145 H Lactic Acid Calcium 8.0 L CK-MB (CK-2) CK-MB (CK-2) Rel Index Troponin T Albumin Triglycerides Cholesterol LDL Cholesterol Direct Urine WBC (Auto) Urine Creatinine Salicylates Acetaminophen 09/24/18 09/24/18 04:56 05:33 RBC Hgb Hct Lymph % (Auto) [place] % (Auto) Lymph # [place] # Seg Neutrophils % D-Dimer POC ABG pH 7.551 H POC ABG pCO2 32.0 L POC ABG pO2 133 H Potassium Chloride Carbon Dioxide BUN Creatinine Glucose POC Glucose 127 H Lactic Acid Calcium CK-MB (CK-2) CK-MB (CK-2) Rel Index Troponin T Albumin Triglycerides Cholesterol LDL Cholesterol Direct Urine WBC (Auto) Urine Creatinine Salicylates Acetaminophen
[2018-09-24] MEDS: LOVENOX SUB-Q SCH (09:48)
[2018-09-24] MEDS: PEPCID IV SCH (09:49)
[2018-09-24] MEDS: SODIUM CHLORIDE FLUSH SYRINGE 10 ML IV SCH ×2 (09:49→22:04)
--- NOTE | 2018-09-24 09:54 | Progress Note ---
Assessment and Plan S/p vascular access placement and hemodialysis yesterday evening. Currently stable cardiac status. Follow pulmonary and nephrology recs. The patient has been seen in conjunction with Dr. Marti who agrees with the assessment and plan of care. - Patient Problems (1) Acute respiratory failure Current Visit: Yes Status: Acute (2) Altered mental status Current Visit: Yes Status: Acute (3) Pneumonia Current Visit: Yes Status: Acute Qualifiers: Pneumonia type: due to unspecified organism Laterality: unspecified laterality Lung location: unspecified part of lung Qualified Code(s): J18.9 - Pneumonia, unspecified organism (4) Sepsis Current Visit: Yes Status: Suspected Qualifiers: Sepsis type: sepsis due to unspecified organism Qualified Code(s): A41.9 - Sepsis, unspecified organism (5) Hypertension Current Visit: Yes Status: Chronic Qualifiers: Hypertension type: essential hypertension Qualified Code(s): I10 - Essential (primary) hypertension (6) Diabetes Current Visit: Yes Status: Chronic (7) CKD (chronic kidney disease) Current Visit: Yes Status: Chronic Qualifiers: Chronic kidney disease stage: unspecified stage Qualified Code(s): N18.9 - Chronic kidney disease, unspecified (8) Elevated troponin Current Visit: Yes Status: Acute (9) Anemia Current Visit: Yes Status: Acute (10) Hyperkalemia Current Visit: Yes Status: Acute Subjective Date of service: 09/24/18 Principal diagnosis: acute respiratory failure, end-stage renal disease, AMS Interval history: pt remains intubated, sedated, agitated, restrained. in SR on telemetry. sons at bedside. Objective Last Vital Signs Temp 100.0 F H 09/24/18 04:00 Pulse 77 09/24/18 09:00 Resp 17 09/24/18 09:00 BP 151/53 09/24/18 09:00 Pulse Ox 100 09/24/18 09:00 - Physical Examination General: Other (intubated, sedated, agitated) Neck: Positive: neck supple, trachea midline. Negative: JVD/HJR, Masses Cardiac: Positive: Reg Rate and Rhythm, S1/S2 Lungs: Positive: Decreased Breath Sounds Neuro: Positive: Other (intubated, sedated, agitated) Skin: Negative: Rash, Wound Musculoskeletal: No Pain Extremities: Present: edema (trace BLE) - Labs and Meds CBC 09/24/18 Range/Units 04:28 WBC 9.5 (4.5-11.0) K/mm3 RBC 2.66 L (3.65-5.03) M/mm3 Hgb 7.6 L (10.1-14.3) gm/dl Hct 22.5 L (30.3-42.9) % Plt Count 176 (140-440) K/mm3 Comprehensive Metabolic Panel 09/24/18 Range/Units 04:28 Sodium 142 (137-145) mmol/L Potassium 3.6 (3.6-5.0) mmol/L Chloride 102.5 (98-107) mmol/L Carbon Dioxide 26 D (22-30) mmol/L BUN 27 H (7-17) mg/dL Creatinine 4.8 H (0.7-1.2) mg/dL Glucose 129 H (65-100) mg/dL Calcium 8.0 L (8.4-10.2) mg/dL - Imaging and Cardiology EKG: report reviewed, image reviewed Echo: report reviewed (EF 50-55%, mild LVH, LA mildly dilated, mild MR, trace TR, right pleural effusion. ) - Telemetry EKG Rhythm: Sinus Rhythm - EKG Sinus rhythms and dysrhythmias: sinus rhythm
--- NOTE | 2018-09-24 10:34 | XRay Report ---
AP CHEST: HISTORY: Fever Lines and tubes are unchanged in position since yesterday's exam. Mild cardiomegaly and pulmonary venous congestion are stable. The lungs are generally clear. No evidence for consolidation, large pleural effusion or pneumothorax. The bony structures are grossly intact. IMPRESSION: Mild cardiomegaly and pulmonary venous congestion. No evidence for pneumonia.
[2018-09-24] MEDS ORDERED: NACL 0.9% 100 ML IV PRN (12:26)
--- NOTE | 2018-09-24 12:34 | Progress Note ---
Assessment and Plan Impression * Advanced chronic kidney disease. Most likely ESRD * Respiratory failure secondary to pneumonia plus /minus fluid overload * Metabolic acidosis * Hyperkalemia * Diabetes * Hypertension * Sepsis Recommendations * Patient most likely has end-stage renal disease * Status post right IJ Vas-Cath placement on 09/23/2018. * Uneventful hemodialysis yesterday. Plan to dialyze her again today. * Acidosis has been corrected. Discontinue bicarbonate drip. * Her urine shows 4+ dipstick protein and fractional excretion of sodium is 3.6% * Follow up results of renal ultrasound and vasculitis workup * Avoid nephrotoxins * Monitor fluid status and electrolytes closely * Remove Rangel * Reassess patient tomorrow in the morning regarding her next dialysis treatment * Discussed with family members at bedside Subjective Date of service: 09/24/18 Principal diagnosis: acute respiratory failure, end-stage renal disease, AMS Interval history: Patient is status post right IJ Vas-Cath placement and initiation of dialysis yesterday. She is currently on the ventilator. On 30% FiO2. Bicarbonate drip infusing. Objective - Vital Signs Vital signs: Vital Signs - 12hr 09/24/18 09/24/18 09/24/18 00:45 01:00 01:16 Temperature Pulse Rate 60 56 L 93 H Respiratory 20 20 28 H Rate Blood Pressure 155/48 152/44 188/73 O2 Sat by Pulse 100 100 100 Oximetry 09/24/18 09/24/18 09/24/18 01:24 01:30 01:45 Temperature Pulse Rate 114 H 88 92 H Respiratory 20 20 Rate Blood Pressure 188/73 197/64 173/59 O2 Sat by Pulse 100 100 Oximetry 09/24/18 09/24/18 09/24/18 02:00 02:15 02:30 Temperature Pulse Rate 86 79 81 Respiratory 20 20 15 Rate Blood Pressure 160/54 149/50 151/59 O2 Sat by Pulse 100 100 99 Oximetry 09/24/18 09/24/18 09/24/18 02:46 03:00 03:15 Temperature Pulse Rate 74 74 72 Respiratory 20 20 21 Rate Blood Pressure 131/42 135/48 130/49 O2 Sat by Pulse 100 100 100 Oximetry 09/24/18 09/24/18 09/24/18 03:30 03:46 04:00 Temperature 100.0 F H Pulse Rate 67 89 79 Respiratory 20 18 18 Rate Blood Pressure 139/51 170/61 170/61 O2 Sat by Pulse 100 100 100 Oximetry 09/24/18 09/24/18 09/24/18 04:16 04:30 04:46 Temperature Pulse Rate 65 63 61 Respiratory 20 20 20 Rate Blood Pressure 171/56 163/52 165/54 O2 Sat by Pulse 100 100 100 Oximetry 09/24/18 09/24/18 09/24/18 04:50 04:56 05:00 Temperature Pulse Rate 61 59 L Respiratory 16 Rate Blood Pressure 165/54 158/48 O2 Sat by Pulse 100 100 100 Oximetry 09/24/18 09/24/18 09/24/18 05:16 05:30 05:33 Temperature Pulse Rate 88 71 71 Respiratory 23 16 Rate Blood Pressure 192/117 192/117 192/117 O2 Sat by Pulse 100 100 Oximetry 09/24/18 09/24/18 09/24/18 05:46 06:00 06:15 Temperature Pulse Rate 77 82 83 Respiratory 16 16 16 Rate Blood Pressure 129/46 119/50 121/45 O2 Sat by Pulse 100 100 100 Oximetry 09/24/18 09/24/18 09/24/18 06:30 06:45 07:00 Temperature Pulse Rate 84 87 83 Respiratory 16 16 16 Rate Blood Pressure 113/42 114/42 104/44 O2 Sat by Pulse 100 100 100 Oximetry 09/24/18 09/24/18 09/24/18 07:16 07:30 07:45 Temperature Pulse Rate 79 82 72 Respiratory 16 17 16 Rate Blood Pressure 115/45 123/46 132/48 O2 Sat by Pulse 100 100 100 Oximetry 09/24/18 09/24/18 09/24/18 08:00 08:15 08:30 Temperature Pulse Rate 86 69 106 H Respiratory 17 16 17 Rate Blood Pressure 141/58 118/46 138/64 O2 Sat by Pulse 100 100 99 Oximetry 09/24/18 09/24/18 09/24/18 08:46 09:00 10:35 Temperature Pulse Rate 76 77 79 Respiratory 16 17 Rate Blood Pressure 151/53 151/53 195/79 O2 Sat by Pulse 100 100 100 Oximetry - General Appearance General appearance: well-developed, well-nourished, appears stated age, intubat ed EENT: PERRL, mucous membranes moist Neck: no JVD, no thyromegaly, no carotid bruit, supple, other (right IJ Vas-Cath in place) Respiratory: Present: Clear to Ascultation Cardiology: regular, normal heart rate, S1S2, no murmurs Gastrointestinal: normal, normoactive bowel sounds Integumentary: other (no edema) - Lab 09/24/18 04:28 09/24/18 04:28 Most recent lab results Calcium 8.0 mg/dL (8.4-10.2) L 09/24/18 04:28 Urine Creatinine 80.7 mg/dL (0.1-20.0) H 09/23/18 16:00 Urine Sodium 66 mmol/L 09/23/18 16:00 Medications & Allergies - Medications Allergies/Adverse Reactions: Allergies codeine Adverse Reaction (Verified 09/23/18 10:09) Unknown Active Medications: Generic Name Dose Route Start Last Admin Trade Name Freq PRN Reason Stop Dose Admin Acetaminophen 650 mg 09/22/18 04:14 Tylenol PO Q4H PRN Pain MILD(1-3)/Fever >100.5/MEJIA Lipase/Protease/Amylase 1 each 09/23/18 13:[address] 10,500 Unit FEEDTUBE PRN PRN For Clogged Feeding Tube Dextrose 50 ml 09/22/18 04:14 D50w (25gm) Syringe IV PRN PRN Hypoglycemia Enoxaparin Sodium 30 mg 09/22/18 10:00 09/24/18 09:48 Lovenox SUB-Q 30 mg QDAY KAILA Administration Famotidine 20 mg 09/22/18 10:00 09/24/18 09:49 Pepcid IV 20 mg DAILY KAILA Administration Hydralazine HCl 10 mg 09/22/18 19:30 09/24/18 05:33 Apresoline IV 10 mg Q4HR PRN Administration SBP>160 Fentanyl Citrate 2,000 mcg in 100 mls @ 3.7 mls/hr 09/22/18 02:00 09/24/18 04:17 Fentanyl Drip Premix IV 4 mcg/kg/hr TITR KAILA 14.8 mls/hr Administration Protocol 1 MCG/KG/HR Propofol 1,000 mg in 100 mls @ 2.22 mls/hr 09/22/18 11:00 09/23/18 17:42 Diprivan 10 Mg/Ml IV 0 mcg/kg/min TITR KAILA 0 mls/hr Titration Protocol 5 MCG/KG/MIN Sodium Chloride 100 mls @ 999 mls/hr 09/23/18 08:40 Nacl 0.9% IV CAROLINE PRN Hypotension Sodium Chloride 100 mls @ 999 mls/hr 09/24/18 12:26 Nacl 0.9% IV CAROLINE PRN Hypotension Insulin Human Lispro 0 unit 09/22/18 06:00 09/24/18 05:37 Humalog SUB-Q Not Given Q6HR [facility] Protocol Lorazepam 1 mg 09/23/18 10:06 09/24/18 05:34 Ativan IV 1 mg Q4H PRN Administration Agitation Ondansetron HCl 4 mg 09/22/18 04:14 Zofran IV Q8H PRN Nausea And Vomiting Simple Syrup 15 ml 09/23/18 13:57 Simple Syrup FEEDTUBE PRN PRN Hypoglycemia Simple Syrup 30 ml 09/23/18 13:57 Simple Syrup FEEDTUBE PRN PRN Hypoglycemia Sodium Bicarbonate 325 mg 09/23/18 13:57 Sodium Bicarbonate FEEDTUBE PRN PRN For Clogged Feeding Tube Sodium Chloride 10 ml 09/22/18 10:00 09/24/18 09:49 Sodium Chloride Flush Syringe 10 Ml IV 10 ml BID KAILA Administration Sodium Chloride 10 ml 09/22/18 04:14 Sodium Chloride Flush Syringe 10 Ml IV PRN PRN LINE FLUSH
--- NOTE | 2018-09-24 17:47 | Progress Note ---
Assessment and Plan Assessment and plan: 68 year old woman history of CHF, hypertension, diabetes, chronic kidney disease was brought to the emergency room for shortness of breath. The history is per the son Roshan, he stated he was not at the scene, the patient was at [facility] when her symptoms started. Patient was intubated in the emergency room, she is sedated, review of system is unobtainable. Nurse reported that the patient had copious amount of vomiting in the ER Acute respiratory failure Sepsis Pneumonia, probably most likely aspiration Abnormal d-dimer, cardiac enzymes Metabolic encephalopathy Hypertension NSTEMI Type 2 -Troponin elevation currently nonspecific in setting of renal insufficiency, respiratory failure, susp Diabetes Chronic kidney disease CHF, stable Plan Continue supportive care in the ICU Continue antibiotics IV Zosyn, follow cultures, hold IV fluid - CHF Status post right IJ Vas-Cath placement on 09/23/2018. -started on HD Echo reviewed - EF 50-55%, mild LVH, LA mildly dilated, mild MR, trace TR, right pleural effusion. Critical care input noted Await doppler lower ext Check finger sticks, initiate insulin sliding scale DVT prophylaxis The high probability of a clinically significant, sudden or life threatening deterioration of the [45] system(s) required my full and direct attention, intervention and personal management. The aggregate critical care time was [pulmonary, cardiac, renal] minutes. This time is in addition to time spent performing reported procedures but includes the following: [x] Data Review and interpretation [x] Patient assessment and monitoring of vital signs [x] Documentation [x] Medication orders and management History Interval history: Patient is examined this morning he remains intubated agitated. Anticipate pos sible libration from the vent today. Discussed with family at bedside Hospitalist Physical - Physical exam Narrative exam: VITAL SIGNS: Reviewed. GENERAL: The patient appeared agitated moderate respiratory distress currently on mechanical ventilation. What vital signs as documented. HEAD: No signs of head trauma. EYES: Pupils are equal. Extraocular motions intact. EARS: Hearing grossly intact. MOUTH: G-tube in place NECK: No adenopathy, no JVD. CHEST: Chest with clear breath sounds bilaterally. No wheezes, rales, or rhonchi. CARDIAC: Regular rate and rhythm. S1 and S2, without murmurs, gallops, or rubs. VASCULAR: No Edema. Peripheral pulses normal and equal in all extremities. ABDOMEN: Soft, without detectable tenderness. No sign of distention. No rebound or guarding, and no masses palpated. Bowel Sounds normal. MUSCULOSKELETAL: Good range of motion of all major joints. Extremities without clubbing, cyanosis or edema. NEUROLOGIC EXAM: Awake orientation unable to assess at this time. No focal sensory or strength deficits. Follows some comment PSYCHIATRIC: Unable to assess SKIN: No rash or lesions. - Constitutional Vitals: Temp Pulse Resp BP Pulse Ox 99.8 F H 118 H 21 202/71 100 09/24/18 15:30 09/24/18 17:30 09/24/18 15:30 09/24/18 17:30 09/24/18 17:02 General appearance: Present: other (intubated, sedated) Results - Labs CBC & Chem 7: 09/24/18 04:28 09/24/18 04:28 Labs: Laboratory Last Values WBC 9.5 K/mm3 (4.5-11.0) 09/24/18 04:28 RBC 2.66 M/mm3 (3.65-5.03) L 09/24/18 04:28 Hgb 7.6 gm/dl (10.1-14.3) L 09/24/18 04:28 Hct 22.5 % (30.3-42.9) L 09/24/18 04:28 MCV 85 fl (79-97) 09/24/18 04:28 MCH 29 pg (28-32) 09/24/18 04:28 MCHC 34 % (30-34) 09/24/18 04:28 RDW 14.8 % (13.2-15.2) 09/24/18 04:28 Plt Count 176 K/mm3 (140-440) 09/24/18 04:28 Lymph % (Auto) 16.7 % (13.4-35.0) 09/23/18 04:24 [place] % (Auto) 12.6 % (0.0-7.3) H 09/23/18 04:24 Eos % (Auto) 3.5 % (0.0-4.3) 09/23/18 04:24 Baso % (Auto) 1.5 % (0.0-1.8) 09/23/18 04:24 Lymph # 1.4 K/mm3 (1.2-5.4) 09/23/18 04:24 [place] # 1.1 K/mm3 (0.0-0.8) H 09/23/18 04:24 Eos # 0.3 K/mm3 (0.0-0.4) 09/23/18 04:24 Baso # 0.1 K/mm3 (0.0-0.1) 09/23/18 04:24 Seg Neutrophils % 65.7 % (40.0-70.0) 09/23/18 04:24 Seg Neutrophils # 5.5 K/mm3 (1.8-7.7) 09/23/18 04:24 D-Dimer 4401.15 ng/mlDDU (0-234) H 09/21/18 22:56 POC ABG pH 7.551 (7.35-7.45) H 09/24/18 04:56 POC ABG pCO2 32.0 (35-45) L 09/24/18 04:56 POC ABG pO2 133 (80-105) H 09/24/18 04:56 POC ABG HCO3 28.0 09/24/18 04:56 POC ABG Total CO2 29 09/24/18 04:56 POC ABG O2 Sat 99 09/24/18 04:56 POC ABG Base Excess 6 09/24/18 04:56 FiO2 30 % 09/24/18 04:56 Sodium 142 mmol/L (137-145) 09/24/18 04:28 Potassium 3.6 mmol/L (3.6-5.0) 09/24/18 04:28 Chloride 102.5 mmol/L (98-107) 09/24/18 04:28 Carbon Dioxide 26 mmol/L (22-30) D 09/24/18 04:28 Anion Gap 17 mmol/L 09/24/18 04:28 BUN 27 mg/dL (7-17) H 09/24/18 04:28 Creatinine 4.8 mg/dL (0.7-1.2) H 09/24/18 04:28 Estimated GFR 11 ml/min 09/24/18 04:28 BUN/Creatinine Ratio 6 % 09/24/18 04:28 Glucose 129 mg/dL (65-100) H 09/24/18 04:28 POC Glucose 171 (70-105) H 09/24/18 12:39 Lactic Acid 1.70 mmol/L (0.7-2.0) 09/22/18 04:50 Calcium 8.0 mg/dL (8.4-10.2) L 09/24/18 04:28 Total Bilirubin 0.20 mg/dL (0.1-1.2) 09/21/18 22:56 AST 17 units/L (5-40) 09/21/18 22:56 ALT 9 units/L (7-56) 09/21/18 22:56 Alkaline Phosphatase 86 units/L (35-129) 09/21/18 22:56 Ammonia 57.0 umol/L (25-60) 09/21/18 22:56 Total Creatine Kinase 81 units/L (30-135) 09/22/18 10:26 CK-MB (CK-2) 3.1 ng/mL (0.0-4.0) 09/22/18 10:26 CK-MB (CK-2) Rel Index 3.8 (0-4) 09/22/18 10:26 Troponin T 0.074 ng/mL (0.00-0.029) H D 09/22/18 10:26 Total Protein 6.5 g/dL (6.3-8.2) 09/21/18 22:56 Albumin 3.6 g/dL (3.9-5) L 09/21/18 22:56 Albumin/Globulin Ratio 1.2 % 09/21/18 22:56 Triglycerides 208 mg/dL (2-149) H 09/21/18 23:57 Cholesterol 206 mg/dL (50-199) H 09/21/18 23:57 LDL Cholesterol Direct 143 mg/dL (50-130) H 09/21/18 23:57 HDL Cholesterol 40 mg/dL (40-59) 09/21/18 23:57 Cholesterol/HDL Ratio 5.15 % 09/21/18 23:57 Urine Color Yellow (Yellow) 09/23/18 16:00 Urine Turbidity Clear (Clear) 09/23/18 16:00 Urine pH 7.0 (5.0-7.0) 09/23/18 16:00 Ur Specific [place] [employer] 1.009 (1.003-1.030) 09/23/18 16:00 Urine Protein >500 mg/dL (Negative) 09/23/18 16:00 Urine Glucose (UA) 50 mg/dL (Negative) 09/23/18 16:00 Urine Ketones Neg mg/dL (Negative) 09/23/18 16:00 Urine Blood Neg (Negative) 09/23/18 16:00 Urine Nitrite Neg (Negative) 09/23/18 16:00 Urine Bilirubin Neg (Negative) 09/23/18 16:00 Urine Urobilinogen < 2.0 mg/dL (<2.0) 09/23/18 16:00 Ur Leukocyte Esterase Sm (Negative) 09/23/18 16:00 Urine WBC (Auto) 13.0 /HPF (0.0-6.0) H 09/23/18 16:00 Urine RBC (Auto) 1.0 /HPF (0.0-6.0) 09/23/18 16:00 U Epithel Cells (Auto) < 1.0 /HPF (0-13.0) 09/23/18 16:00 Urine Bacteria (Auto) 1+ /HPF (Negative) 09/23/18 16:00 Hyaline Casts 3 /LPF 09/23/18 16:00 Urine Mucus Few /HPF 09/23/18 16:00 Urine Eosinophils None seen (None Seen) 09/22/18 16:00 Urine Creatinine 80.7 mg/dL (0.1-20.0) H 09/23/18 16:00 Urine Sodium 66 mmol/L 09/23/18 16:00 Fraction Sodium Excret 3.6 09/23/18 16:00 Salicylates < 0.3 mg/dL (2.8-20.0) L 09/21/18 22:56 Acetaminophen < 5.0 ug/mL (10.0-30.0) L 09/21/18 22:56 Plasma/Serum Alcohol < 0.01 % (0-0.07) 09/21/18 22:56 Hepatitis A IgM Ab Non-reactive (NonReactive) 09/22/18 18:06 Hep Bs Antigen Non-reactive (Negative) 09/22/18 18:06 Hep B Core IgM Ab Non-reactive (NonReactive) 09/22/18 18:06 Hepatitis C Antibody Non-reactive (NonReactive) 09/22/18 18:06 Nutrition/Malnutrition Assess - Dietary Evaluation Nutrition/Malnutrition Findings: Nutrition Notes Start: 09/23/18 13:24 Freq: Status: Active Protocol: Document 09/23/18 13:24 TW (Rec: 09/23/18 13:56 TW [id number]) Co-Sign 09/23/18 13:24 LP Nutrition Notes Need for Assessment generated from: MD Order Initial or Follow up Assessment Current Diagnosis CKD(stage I-IV) Diabetes Sepsis Hypertension Heart Failure Respiratory Failure Other Pertinent Diagnosis AMS, pneumonia Current Diet NPO Labs/Tests BUN 54 Cr 7.0 Pertinent Medications Reviewed Height 5 ft 3 in Weight 74 kg [place] Body Weight (kg) 52.27 BMI 28.9 Weight Status Overweight Subjective/Other Information MD consult for TF. Pt on vent. Burn Absent Trauma Absent #1 Nutrition Diagnosis Inadequate oral intake Etiology vent status As Evidenced by Signs and Symptoms NPO order Is patient on ventilator? Yes Is Patient Ambulatory and/or Out of Bed No REE-(Moody-St. Jeor-confined to bed) 1498.500 Calculation Used for Recommendations Moody-St Jeor Additional Notes pro 89-148g/day (1.2-2g/kg) fluid 1ml/kcal or per MD order Nutrition Intervention Nutrition Support: Nepro 1.8 at 35ml/hr Water flush of 150 ml q4h or per MD order Kcal 1,512 Protein (gm) 68 Fluid (mL) 610 Goal #1 TF start Goal #2 TF tolerance Anticipated Discharge Needs: Unable to determine Follow-Up By: 09/25/18 Additional Comments F/U for TF start/ tolerance
[2018-09-24] MEDS ORDERED: NACL 0.9% 1000 ML 2,000 ML ONE (18:24)
--- NOTE | 2018-09-24 18:58 | Vascular Lab Report ---
FINAL REPORT EXAM: US DOPPLER VENOUS LOWER EXTREMITY BILATERAL HISTORY: dvt TECHNIQUE: Real-time color duplex sonography was performed of the deep venous systems of the [facility] lower extremities and images are submitted for interpretation. PRIORS: None. FINDINGS: Right: There is normal compressibility of the common and superficial femoral veins and the popliteal vein. Normal venous waveforms are demonstrated throughout. No echogenic thrombus is demonstrated. Col or flow is demonstrated in the posterior tibialis and peroneal veins. Left: There is normal compressibility of the common and superficial femoral veins and the popliteal v ein. Normal venous waveforms are demonstrated throughout. No echogenic thrombus is demonstrated. Antoine r flow is demonstrated in the posterior tibialis and peroneal veins. IMPRESSION: No evidence of DVT.
[2018-09-24] MEDS: APRESOLINE PO SCH (20:15)
[2018-09-24] MEDS: NORMODYNE PO SCH (21:23)
[2018-09-25] MEDS: HumaLOG SUB-Q SCH ×5 (00:04→18:50)
[2018-09-25] MEDS: ATIVAN IV PRN ×3 (02:00→18:15)
[2018-09-25] MEDS: APRESOLINE IV PRN ×3 (02:10→18:21)
[2018-09-25 04:47] LABS: Hematocrit 23.4 % (30.3-42.9); Hemoglobin 7.9 gm/dl (10.1-14.3); Mean Corpuscular HGB Conc 34 % (30-34); Mean Corpuscular Volume 86 fl (79-97); Platelet Count 173 K/mm3 (140-440); Red Blood Count 2.73 M/mm3 (3.65-5.03); Red Cell Distribution Width 14.6 % (13.2-15.2)
[2018-09-25 05:34] LABS: Calcium 8.2 mg/dL (8.4-10.2)
[2018-09-25] MEDS: APRESOLINE PO SCH ×3 (08:36→21:11)
--- NOTE | 2018-09-25 09:10 | Progress Note ---
Assessment and Plan Impression * Advanced chronic kidney disease. Most likely ESRD --Status post right IJ Vas-Cath placement on 09/23/2018. * Acute hypoxic respiratory failure secondary to pneumonia plus /minus fluid overload * Metabolic acidosis -resolved * Hyperkalemia - resolved * Type II diabetes mellitus * Hypertension * Proteinuria Recommendations * Patietn is s/p HD on /Sat * Hemodialysis tomorrow. Continue MWF schedule * UF as tolerated * Vent management per CCM * Avoid nephrotoxins * Monitor fluid status and electrolytes closely Subjective Date of service: 09/25/18 Principal diagnosis: acute respiratory failure, end-stage renal disease, AMS Interval history: No acute events overnight. Objective - Vital Signs Vital signs: Vital Signs - 12hr 09/24/18 09/24/18 09/24/18 21:16 21:23 21:24 Temperature Pulse Rate 85 96 H 98 H Pulse Rate [ Right Dorsalis Pedis] Respiratory 16 Rate Blood Pressure 219/60 219/79 219/79 O2 Sat by Pulse 100 Oximetry 09/24/18 09/24/18 09/24/18 21:30 21:46 22:00 Temperature Pulse Rate 91 H 95 H 101 H Pulse Rate [ 89 Right Dorsalis Pedis] Respiratory 19 16 21 Rate Blood Pressure 189/66 198/65 198/65 O2 Sat by Pulse 99 99 99 Oximetry 09/24/18 09/24/18 09/24/18 22:16 22:30 22:46 Temperature Pulse Rate 93 H 96 H 80 Pulse Rate [ Right Dorsalis Pedis] Respiratory 16 16 18 Rate Blood Pressure 173/86 198/65 162/60 O2 Sat by Pulse 100 100 100 Oximetry 09/24/18 09/24/18 09/24/18 23:00 23:16 23:30 Temperature Pulse Rate 87 83 88 Pulse Rate [ Right Dorsalis Pedis] Respiratory 16 16 17 Rate Blood Pressure 130/61 130/61 138/57 O2 Sat by Pulse 100 100 100 Oximetry 09/24/18 09/25/18 09/25/18 23:46 00:00 00:15 Temperature 100.3 F H Pulse Rate 74 81 74 Pulse Rate [ 75 Right Dorsalis Pedis] Respiratory 16 16 16 Rate Blood Pressure 138/54 189/64 O2 Sat by Pulse 100 100 100 Oximetry 09/25/18 09/25/18 09/25/18 00:31 00:45 01:00 Temperature Pulse Rate 74 69 64 Pulse Rate [ Right Dorsalis Pedis] Respiratory 16 16 16 Rate Blood Pressure 149/53 162/54 176/56 O2 Sat by Pulse 100 100 100 Oximetry 09/25/18 09/25/18 09/25/18 01:15 01:31 01:45 Temperature Pulse Rate 67 67 67 Pulse Rate [ Right Dorsalis Pedis] Respiratory 16 17 16 Rate Blood Pressure 176/56 158/55 192/64 O2 Sat by Pulse 100 100 100 Oximetry 09/25/18 09/25/18 09/25/18 02:00 02:10 02:15 Temperature Pulse Rate 73 92 H 75 Pulse Rate [ Right Dorsalis Pedis] Respiratory 15 16 Rate Blood Pressure 170/57 192/88 192/64 O2 Sat by Pulse 100 100 Oximetry 09/25/18 09/25/18 09/25/18 02:31 02:45 03:00 Temperature Pulse Rate 75 82 73 Pulse Rate [ Right Dorsalis Pedis] Respiratory 16 17 16 Rate Blood Pressure 157/54 147/55 149/51 O2 Sat by Pulse 100 95 100 Oximetry 09/25/18 09/25/18 09/25/18 03:15 03:31 03:45 Temperature Pulse Rate 80 85 77 Pulse Rate [ Right Dorsalis Pedis] Respiratory 16 16 16 Rate Blood Pressure 149/51 201/71 178/66 O2 Sat by Pulse 100 100 99 Oximetry 09/25/18 09/25/18 09/25/18 04:00 04:15 04:30 Temperature Pulse Rate 72 68 64 Pulse Rate [ 89 Right Dorsalis Pedis] Respiratory 18 16 16 Rate Blood Pressure 171/56 178/66 170/66 O2 Sat by Pulse 100 100 100 Oximetry 09/25/18 09/25/18 09/25/18 04:45 05:00 05:01 Temperature 100 F H Pulse Rate 80 80 Pulse Rate [ Right Dorsalis Pedis] Respiratory 19 15 Rate Blood Pressure 192/97 203/63 O2 Sat by Pulse 100 Oximetry 09/25/18 09/25/18 09/25/18 05:15 05:31 05:45 Temperature Pulse Rate 107 H 115 H 129 H Pulse Rate [ Right Dorsalis Pedis] Respiratory 17 19 15 Rate Blood Pressure 192/97 192/97 203/63 O2 Sat by Pulse 100 100 99 Oximetry 09/25/18 09/25/18 09/25/18 06:00 06:08 06:15 Temperature Pulse Rate 92 H 123 H 88 Pulse Rate [ Right Dorsalis Pedis] Respiratory 17 16 Rate Blood Pressure 179/58 203/63 179/58 O2 Sat by Pulse 100 99 Oximetry 09/25/18 09/25/18 09/25/18 06:31 06:45 07:00 Temperature Pulse Rate 95 H 76 81 Pulse Rate [ Right Dorsalis Pedis] Respiratory 16 16 16 Rate Blood Pressure 150/48 147/43 131/48 O2 Sat by Pulse 100 100 95 Oximetry 09/25/18 09/25/18 09/25/18 07:15 07:19 07:31 Temperature Pulse Rate 75 79 75 Pulse Rate [ Right Dorsalis Pedis] Respiratory 16 16 Rate Blood Pressure 147/43 131/48 144/48 O2 Sat by Pulse 94 94 100 Oximetry 09/25/18 09/25/18 09/25/18 07:45 08:01 08:15 Temperature Pulse Rate 65 70 77 Pulse Rate [ Right Dorsalis Pedis] Respiratory 16 17 22 Rate Blood Pressure 144/48 146/43 146/43 O2 Sat by Pulse 100 100 100 Oximetry 09/25/18 09/25/18 09/25/18 08:31 08:45 09:01 Temperature Pulse Rate 85 71 70 Pulse Rate [ Right Dorsalis Pedis] Respiratory 23 16 16 Rate Blood Pressure 167/52 167/52 140/49 O2 Sat by Pulse 100 100 100 Oximetry - General Appearance General appearance: intubated EENT: ATNC, other (ETT in place) Respiratory: Present: Other (coarse BS) Cardiology: tachycardia, S1S2 Gastrointestinal: normal, no tenderness, no distended Neurologic: other (agitated) Musculoskeletal: other (trace edema) - Lab 09/25/18 04:06 09/25/18 04:06 Most recent lab results Calcium 8.2 mg/dL (8.4-10.2) L 09/25/18 04:06 Urine Creatinine 80.7 mg/dL (0.1-20.0) H 09/23/18 16:00 Urine Sodium 66 mmol/L 09/23/18 16:00 Medications & Allergies - Medications Allergies/Adverse Reactions: Allergies codeine Adverse Reaction (Verified 09/23/18 10:09) Unknown Home Medications: Home Medications Medication Instructions Recorded Confirmed Last Taken Type ALBUTEROL NEB's [Proventil 0.083% 2.5 mg INHALATION Q6H PRN 09/25/18 09/25/18 Unknown History NEBS] Carvedilol 25 mg PO Q12H 09/25/18 09/25/18 Unknown History Clonidine 0.2 mg PO BID 09/25/18 09/25/18 Unknown History Doxazosin 2 mg PO DAILY 09/25/18 09/25/18 Unknown History Dss 100 mg PO BID 09/25/18 09/25/18 Unknown History Fluticasone [Flonase] 1 spray INNOSTRIL DAILY 09/25/18 09/25/18 Unknown History Insulin NPH/Regular [Novolin 70/30] 20 unit SQ DAILY 09/25/18 09/25/18 Unknown History Isosorbide Mononitrate 30 mg PO DAILY 09/25/18 09/25/18 Unknown History NIFEdipine [Nifedipine ER] 60 mg PO BID 09/25/18 09/25/18 Unknown History Sevelamer Carbonate 1 tab PO TID 09/25/18 09/25/18 Unknown History Simvastatin [Zocor] 1 tab PO DAILY 09/25/18 09/25/18 Unknown History Torsemide [Demadex] 0.5 tab PO DAILY 09/25/18 09/25/18 Unknown History hydrALAZINE 100 mg PO Q8H 09/25/18 09/25/18 Unknown History Active Medications: Generic Name Dose Route Start Last Admin Trade Name Freq PRN Reason Stop Dose Admin Acetaminophen 650 mg 09/22/18 04:14 Tylenol PO Q4H PRN Pain MILD(1-3)/Fever >100.5/MEJIA Lipase/Protease/Amylase 1 each 09/23/18 13:[address] 10,500 Unit FEEDTUBE PRN PRN For Clogged Feeding Tube Dextrose 50 ml 09/22/18 04:14 D50w (25gm) Syringe IV PRN PRN Hypoglycemia Enoxaparin Sodium 30 mg 09/22/18 10:00 09/24/18 09:48 Lovenox SUB-Q 30 mg QDAY KAILA Administration Famotidine 20 mg 09/22/18 10:00 09/24/18 09:49 Pepcid IV 20 mg DAILY KAILA Administration Hydralazine HCl 10 mg 09/22/18 19:30 09/25/18 06:08 Apresoline IV 10 mg Q4HR PRN Administration SBP>160 Hydralazine HCl 50 mg 09/24/18 20:00 09/25/18 08:36 Apresoline PO 50 mg TID KAILA Administration Fentanyl Citrate 2,000 mcg in 100 mls @ 3.7 mls/hr 09/22/18 02:00 09/25/18 09:05 Fentanyl Drip Premix IV Infused TITR KAILA Titration Protocol 1 MCG/KG/HR Propofol 1,000 mg in 100 mls @ 2.22 mls/hr 09/22/18 11:00 09/23/18 17:42 Diprivan 10 Mg/Ml IV 0 mcg/kg/min TITR KAILA 0 mls/hr Titration Protocol 5 MCG/KG/MIN Sodium Chloride 100 mls @ 999 mls/hr 09/23/18 08:40 Nacl 0.9% IV CAROLINE PRN Hypotension Sodium Chloride 100 mls @ 999 mls/hr 09/24/18 12:26 Nacl 0.9% IV CAROLINE PRN Hypotension Insulin Human Lispro 0 unit 09/22/18 06:00 09/25/18 07:27 Humalog SUB-Q Not Given Q6HR [facility] Protocol Labetalol HCl 100 mg 09/24/18 22:00 09/24/18 21:23 Normodyne PO 100 mg BID KAILA Administration Lorazepam 1 mg 09/23/18 10:06 09/25/18 06:07 Ativan IV 1 mg Q4H PRN Administration Agitation Ondansetron HCl 4 mg 09/22/18 04:14 09/25/18 06:08 Zofran IV 4 mg Q8H PRN Administration Nausea And Vomiting Simple Syrup 15 ml 09/23/18 13:57 Simple Syrup FEEDTUBE PRN PRN Hypoglycemia Simple Syrup 30 ml 09/23/18 13:57 Simple Syrup FEEDTUBE PRN PRN Hypoglycemia Sodium Bicarbonate 325 mg 09/23/18 13:57 Sodium Bicarbonate FEEDTUBE PRN PRN For Clogged Feeding Tube Sodium Chloride 10 ml 09/22/18 10:00 09/24/18 22:04 Sodium Chloride Flush Syringe 10 Ml IV 10 ml BID KAILA Administration Sodium Chloride 10 ml 09/22/18 04:14 Sodium Chloride Flush Syringe 10 Ml IV PRN PRN LINE FLUSH
[2018-09-25] MEDS ORDERED: NACL 0.9% 100 ML IV PRN (09:59)
--- NOTE | 2018-09-25 10:32 | Progress Note ---
Assessment and Plan Assessment and plan: 68 year old woman history of CHF, hypertension, diabetes, chronic kidney disease was brought to the emergency room for shortness of breath. The history is per the son Roshan, he stated he was not at the scene, the patient was at [employer] when her symptoms started. Patient was intubated in the emergency room, she is sedated, review of system is unobtainable. Nurse reported that the patient had copious amount of vomiting in the ER Acute respiratory failure Sepsis Pneumonia, probably most likely aspiration Abnormal d-dimer, cardiac enzymes Metabolic encephalopathy Hypertension NSTEMI Type 2 -Troponin elevation currently nonspecific in setting of renal insufficiency, respiratory failure, susp Diabetes Chronic kidney disease CHF, stable Plan Continue supportive care in the ICU Check CT brain, to ensure no other pathology Continue antibiotics IV Zosyn, follow cultures, hold IV fluid - CHF Status post right IJ Vas-Cath placement on 09/23/2018. -started on HD Echo reviewed - EF 50-55%, mild LVH, LA mildly dilated, mild MR, trace TR, right pleural effusion. Critical care input noted Await doppler lower ext Check finger sticks, initiate insulin sliding scale DVT prophylaxis The high probability of a clinically significant, sudden or life threatening deterioration of the [pulmonary, cardiac, renal] system(s) required my full and direct attention, intervention and personal management. The aggregate critical care time was [35]minutes. This time is in addition to time spent performing re ported procedures but includes the following: [x] Data Review and interpretation [x] Patient assessment and monitoring of vital signs [x] Documentation [x] Medication orders and management History Interval history: Patient is examined this morning he remains intubated, agitated With attempt to wean sedation. still on the [facility] Hospitalist Physical - Physical exam Narrative exam: VITAL SIGNS: Reviewed. GENERAL: The patient appeared agitated moderate respiratory distress currently on mechanical ventilation. What vital signs as documented. HEAD: No signs of head trauma. EYES: Pupils are equal. Extraocular motions intact. EARS: Hearing grossly intact. MOUTH: G-tube in place NECK: No adenopathy, no JVD. CHEST: Chest with clear breath sounds bilaterally. No wheezes, rales, or rhonchi. CARDIAC: Regular rate and rhythm. S1 and S2, without murmurs, gallops, or rubs. VASCULAR: No Edema. Peripheral pulses normal and equal in all extremities. ABDOMEN: Soft, without detectable tenderness. No sign of distention. No rebound or guarding, and no masses palpated. Bowel Sounds normal. MUSCULOSKELETAL: Good range of motion of all major joints. Extremities without clubbing, cyanosis or edema. NEUROLOGIC EXAM: Awake orientation unable to assess at this time. No focal sensory or strength deficits. PSYCHIATRIC: Unable to assess SKIN: No rash or lesions. - Constitutional Vitals: Temp Pulse Resp BP Pulse Ox 99.5 F 70 16 140/49 100 09/25/18 09:09 09/25/18 09:01 09/25/18 09:01 09/25/18 09:01 09/25/18 09:01 General appearance: Present: other (intubated, sedated) Results - Labs CBC & Chem 7: 09/25/18 04:06 09/25/18 04:06 Labs: Laboratory Last Values WBC 8.9 K/mm3 (4.5-11.0) 09/25/18 04:06 RBC 2.73 M/mm3 (3.65-5.03) L 09/25/18 04:06 Hgb 7.9 gm/dl (10.1-14.3) L 09/25/18 04:06 Hct 23.4 % (30.3-42.9) L 09/25/18 04:06 MCV 86 fl (79-97) 09/25/18 04:06 MCH 29 pg (28-32) 09/25/18 04:06 MCHC 34 % (30-34) 09/25/18 04:06 RDW 14.6 % (13.2-15.2) 09/25/18 04:06 Plt Count 173 K/mm3 (140-440) 09/25/18 04:06 Lymph % (Auto) 16.7 % (13.4-35.0) 09/23/18 04:24 [place] % (Auto) 12.6 % (0.0-7.3) H 09/23/18 04:24 Eos % (Auto) 3.5 % (0.0-4.3) 09/23/18 04:24 Baso % (Auto) 1.5 % (0.0-1.8) 09/23/18 04:24 Lymph # 1.4 K/mm3 (1.2-5.4) 09/23/18 04:24 [place] # 1.1 K/mm3 (0.0-0.8) H 09/23/18 04:24 Eos # 0.3 K/mm3 (0.0-0.4) 09/23/18 04:24 Baso # 0.1 K/mm3 (0.0-0.1) 09/23/18 04:24 Seg Neutrophils % 65.7 % (40.0-70.0) 09/23/18 04:24 Seg Neutrophils # 5.5 K/mm3 (1.8-7.7) 09/23/18 04:24 D-Dimer 4401.15 ng/mlDDU (0-234) H 09/21/18 22:56 POC ABG pH 7.477 (7.35-7.45) H 09/25/18 05:16 POC ABG pCO2 40.6 (35-45) 09/25/18 05:16 POC ABG pO2 122 (80-105) H 09/25/18 05:16 POC ABG HCO3 30.1 09/25/18 05:16 POC ABG Total CO2 31 09/25/18 05:16 POC ABG O2 Sat 99 09/25/18 05:16 POC ABG Base Excess 7 09/25/18 05:16 FiO2 30 % 09/25/18 05:16 Sodium 137 mmol/L (137-145) 09/25/18 04:06 Potassium 4.3 mmol/L (3.6-5.0) 09/25/18 04:06 Chloride 97.2 mmol/L (98-107) L 09/25/18 04:06 Carbon Dioxide 27 mmol/L (22-30) 09/25/18 04:06 Anion Gap 17 mmol/L 09/25/18 04:06 BUN 16 mg/dL (7-17) 09/25/18 04:06 Creatinine 3.6 mg/dL (0.7-1.2) H 09/25/18 04:06 Estimated GFR 15 ml/min 09/25/18 04:06 BUN/Creatinine Ratio 4 % 09/25/18 04:06 Glucose 118 mg/dL (65-100) H 09/25/18 04:06 POC Glucose 144 (70-105) H 09/25/18 05:55 Lactic Acid 1.70 mmol/L (0.7-2.0) 09/22/18 04:50 Calcium 8.2 mg/dL (8.4-10.2) L 09/25/18 04:06 Total Bilirubin 0.20 mg/dL (0.1-1.2) 09/21/18 22:56 AST 17 units/L (5-40) 09/21/18 22:56 ALT 9 units/L (7-56) 09/21/18 22:56 Alkaline Phosphatase 86 units/L (35-129) 09/21/18 22:56 Ammonia 57.0 umol/L (25-60) 09/21/18 22:56 Total Creatine Kinase 81 units/L (30-135) 09/22/18 10:26 CK-MB (CK-2) 3.1 ng/mL (0.0-4.0) 09/22/18 10:26 CK-MB (CK-2) Rel Index 3.8 (0-4) 09/22/18 10:26 Troponin T 0.074 ng/mL (0.00-0.029) H D 09/22/18 10:26 Total Protein 6.5 g/dL (6.3-8.2) 09/21/18 22:56 Albumin 3.6 g/dL (3.9-5) L 09/21/18 22:56 Albumin/Globulin Ratio 1.2 % 09/21/18 22:56 Triglycerides 208 mg/dL (2-149) H 09/21/18 23:57 Cholesterol 206 mg/dL (50-199) H 09/21/18 23:57 LDL Cholesterol Direct 143 mg/dL (50-130) H 09/21/18 23:57 HDL Cholesterol 40 mg/dL (40-59) 09/21/18 23:57 Cholesterol/HDL Ratio 5.15 % 09/21/18 23:57 Urine Color Yellow (Yellow) 09/23/18 16:00 Urine Turbidity Clear (Clear) 09/23/18 16:00 Urine pH 7.0 (5.0-7.0) 09/23/18 16:00 Ur Specific [place] 1.009 (1.003-1.030) 09/23/18 16:00 Urine Protein >500 mg/dL (Negative) 09/23/18 16:00 Urine Glucose (UA) 50 mg/dL (Negative) 09/23/18 16:00 Urine Ketones Neg mg/dL (Negative) 09/23/18 16:00 Urine Blood Neg (Negative) 09/23/18 16:00 Urine Nitrite Neg (Negative) 09/23/18 16:00 Urine Bilirubin Neg (Negative) 09/23/18 16:00 Urine Urobilinogen < 2.0 mg/dL (<2.0) 09/23/18 16:00 Ur Leukocyte Esterase Sm (Negative) 09/23/18 16:00 Urine WBC (Auto) 13.0 /HPF (0.0-6.0) H 09/23/18 16:00 Urine RBC (Auto) 1.0 /HPF (0.0-6.0) 09/23/18 16:00 U Epithel Cells (Auto) < 1.0 /HPF (0-13.0) 09/23/18 16:00 Urine Bacteria (Auto) 1+ /HPF (Negative) 09/23/18 16:00 Hyaline Casts 3 /LPF 09/23/18 16:00 Urine Mucus Few /HPF 09/23/18 16:00 Urine Eosinophils None seen (None Seen) 09/22/18 16:00 Urine Creatinine 80.7 mg/dL (0.1-20.0) H 09/23/18 16:00 Urine Sodium 66 mmol/L 09/23/18 16:00 Fraction Sodium Excret 3.6 09/23/18 16:00 Salicylates < 0.3 mg/dL (2.8-20.0) L 09/21/18 22:56 Acetaminophen < 5.0 ug/mL (10.0-30.0) L 09/21/18 22:56 Plasma/Serum Alcohol < 0.01 % (0-0.07) 09/21/18 22:56 Hepatitis A IgM Ab Non-reactive (NonReactive) 09/22/18 18:06 Hep Bs Antigen Non-reactive (Negative) 09/22/18 18:06 Hep B Core IgM Ab Non-reactive (NonReactive) 09/22/18 18:06 Hepatitis C Antibody Non-reactive (NonReactive) 09/22/18 18:06 Nutrition/Malnutrition Assess - Dietary Evaluation Nutrition/Malnutrition Findings: Nutrition Notes Start: 09/23/18 13 :24 Freq: Status: Active Protocol: Document 09/23/18 13:24 TW (Rec: 09/23/18 13:56 TW [id number]) Co-Sign 09/23/18 13:24 LP Nutrition Notes Need for Assessment generated from: MD Order Initial or Follow up Assessment Current Diagnosis CKD(stage I-IV) Diabetes Sepsis Hypertension Heart Failure Respiratory Failure Other Pertinent Diagnosis AMS, pneumonia Current Diet NPO Labs/Tests BUN 54 Cr 7.0 Pertinent Medications Reviewed Height 5 ft 3 in Weight 74 kg [place] Body Weight (kg) 52.27 BMI 28.9 Weight Status Overweight Subjective/Other Information MD consult for TF. Pt on vent. Burn Absent Trauma Absent #1 Nutrition Diagnosis Inadequate oral intake Etiology vent status As Evidenced by Signs and Symptoms NPO order Is patient on ventilator? Yes Is Patient Ambulatory and/or Out of Bed No REE-([place]-St. Jeor-confined to bed) 1498.500 Calculation Used for Recommendations [place] Jeor Additional Notes pro 89-148g/day (1.2-2g/kg) fluid 1ml/kcal or per MD order Nutrition Intervention Nutrition Support: Nepro 1.8 at 35ml/hr Water flush of 150 ml q4h or per MD order Kcal 1,512 Protein (gm) 68 Fluid (mL) 610 Goal #1 TF start Goal #2 TF tolerance Anticipated Discharge Needs: Unable to determine Follow-Up By: 09/25/18 Additional Comments F/U for TF start/ tolerance
[2018-09-25] MEDS: PEPCID IV SCH (10:51)
[2018-09-25] MEDS: LOVENOX SUB-Q SCH (10:52)
[2018-09-25] MEDS: NORMODYNE PO SCH ×2 (10:52→21:12)
[2018-09-25] MEDS: SODIUM CHLORIDE FLUSH SYRINGE 10 ML IV SCH ×2 (10:54→22:47)
--- NOTE | 2018-09-25 10:59 | Progress Note ---
Addendum entered and electronically signed by TAMMY MORAN MD 09/25/18 11:53: CXR: Pulmonary congestion. No pneumonia. Being taken to Head CT. Original Note: Assessment and Plan Currently stable cardiac status. Follow pulmonary and nephrology recs. The patient has been seen in conjunction with Dr. Marti who agrees with the assessment and plan of care. - Patient Problems (1) Acute respiratory failure Current Visit: Yes Status: Acute (2) Altered mental status Current Visit: Yes Status: Acute (3) Pneumonia Current Visit: Yes Status: Acute Qualifiers: Pneumonia type: due to unspecified organism Laterality: unspecified lat erality Lung location: unspecified part of lung Qualified Code(s): J18.9 - Pneumonia, unspecified organism (4) Sepsis Current Visit: Yes Status: Suspected Qualifiers: Sepsis type: sepsis due to unspecified organism Qualified Code(s): A41.9 - Sepsis, unspecified organism (5) Hypertension Current Visit: Yes Status: Chronic Qualifiers: Hypertension type: essential hypertension Qualified Code(s): I10 - Essential (primary) hypertension (6) Diabetes Current Visit: Yes Status: Chronic (7) CKD (chronic kidney disease) Current Visit: Yes Status: Chronic Qualifiers: Chronic kidney disease stage: unspecified stage Qualified Code(s): N18.9 - Chronic kidney disease, unspecified (8) Elevated troponin Current Visit: Yes Status: Acute (9) Anemia Current Visit: Yes Status: Acute (10) Hyperkalemia Current Visit: Yes Status: Acute Subjective Date of service: 09/25/18 Principal diagnosis: acute respiratory failure, end-stage renal disease, AMS Interval history: pt remains intubated, agitated, restrained. in SR on telemetry. Objective Last Vital Signs Temp 99.5 F 09/25/18 09:09 Pulse 93 H 09/25/18 10:52 Resp 16 09/25/18 09:01 BP 130/61 09/25/18 10:52 Pulse Ox 100 09/25/18 09:01 - Physical Examination General: Other (intubated, agitated) Neck: Positive: neck supple, trachea midline. Negative: JVD/HJR, Masses Cardiac: Positive: Reg Rate and Rhythm, S1/S2 Lungs: Positive: Decreased Breath Sounds, Ventilated Respirations Neuro: Positive: Other (intubated, agitated) Skin: Negative: Rash, Wound Musculoskeletal: No Pain Extremities: Present: edema (trace BLE) - Labs and Meds CBC 09/25/18 Range/Units 04:06 WBC 8.9 (4.5-11.0) K/mm3 RBC 2.73 L (3.65-5.03) M/mm3 Hgb 7.9 L (10.1-14.3) gm/dl Hct 23.4 L (30.3-42.9) % Plt Count 173 (140-440) K/mm3 Comprehensive Metabolic Panel 09/25/18 Range/Units 04:06 Sodium 137 (137-145) mmol/L Potassium 4.3 (3.6-5.0) mmol/L Chloride 97.2 L (98-107) mmol/L Carbon Dioxide 27 (22-30) mmol/L BUN 16 (7-17) mg/dL Creatinine 3.6 H (0.7-1.2) mg/dL Glucose 118 H (65-100) mg/dL Calcium 8.2 L (8.4-10.2) mg/dL - Imaging and Cardiology EKG: report reviewed, image reviewed Echo: report reviewed (EF 50-55%, mild LVH, LA mildly dilated, mild MR, trace TR, right pleural effusion. ) - EKG Sinus rhythms and dysrhythmias: sinus rhythm
--- NOTE | 2018-09-25 12:24 | Progress Note ---
Assessment and Plan Acute respiratory failure. Self extubated common for CT scan breathing spontaneously on 35% oxygen Fever. Prior CXR w/o infiltrates,BC negative AMS. Delirium End-stage renal disease CAD Obesity Recommendation We evaluated the patient with the respiratory therapy team. The patient was gently suctioned and maintained on spontaneous ventilation with minimal pressure support on 35% oxygen. She was able to endure this for a while without hypoxemia with stable vital signs, we then proceeded to remove the endotracheal tube from the patient after oral and endotracheal suction. She tolerated this well, oximetry between 95-100% throughout the whole process. After 20-30 minutes additional observation, she was noted to either snore or made minimal stridorous sound on quiet breathing, so I added IV steroids, out of an abundance of caution. We delayed using racemic vaponephrin, because of no obvious distress and some PVC episodes immediately after extubation, although heart rate seen to be stabilizing more once patient relaxed. We will continue to monitor during the rest of the afternoon. Haldol was added in case if need for delirium in order to avoid benzodiazepine or sedatives. Zofran was stopped as a precaution to minimize interactions Critical care time was 45 minutes of [id number] evaluation and coordination of care Subjective Date of service: 09/25/18 Principal diagnosis: acute respiratory failure, end-stage renal disease, AMS Interval history: Intubated but alert with arousable breathing sounds on tube after coming back from CT scanning Objective Vital Signs - 12hr 09/25/18 09/25/18 09/25/18 00:31 00:45 01:00 Temperature Pulse Rate 74 69 64 Pulse Rate [ Right Dorsalis Pedis] Respiratory 16 16 16 Rate Blood Pressure 149/53 162/54 176/56 O2 Sat by Pulse 100 100 100 Oximetry 09/25/18 09/25/18 09/25/18 01:15 01:31 01:45 Temperature Pulse Rate 67 67 67 Pulse Rate [ Right Dorsalis Pedis] Respiratory 16 17 16 Rate Blood Pressure 176/56 158/55 192/64 O2 Sat by Pulse 100 100 100 Oximetry 09/25/18 09/25/18 09/25/18 02:00 02:10 02:15 Temperature Pulse Rate 73 92 H 75 Pulse Rate [ Right Dorsalis Pedis] Respiratory 15 16 Rate Blood Pressure 170/57 192/88 192/64 O2 Sat by Pulse 100 100 Oximetry 09/25/18 09/25/18 09/25/18 02:31 02:45 03:00 Temperature Pulse Rate 75 82 73 Pulse Rate [ Right Dorsalis Pedis] Respiratory 16 17 16 Rate Blood Pressure 157/54 147/55 149/51 O2 Sat by Pulse 100 95 100 Oximetry 09/25/18 09/25/18 09/25/18 03:15 03:31 03:45 Temperature Pulse Rate 80 85 77 Pulse Rate [ Right Dorsalis Pedis] Respiratory 16 16 16 Rate Blood Pressure 149/51 201/71 178/66 O2 Sat by Pulse 100 100 99 Oximetry 09/25/18 09/25/18 09/25/18 04:00 04:15 04:30 Temperature Pulse Rate 72 68 64 Pulse Rate [ 89 Right Dorsalis Pedis] Respiratory 18 16 16 Rate Blood Pressure 171/56 178/66 170/66 O2 Sat by Pulse 100 100 100 Oximetry 09/25/18 09/25/18 09/25/18 04:45 05:00 05:01 Temperature 100 F H Pulse Rate 80 80 Pulse Rate [ Right Dorsalis Pedis] Respiratory 19 15 Rate Blood Pressure 192/97 203/63 O2 Sat by Pulse 100 Oximetry 09/25/18 09/25/18 09/25/18 05:15 05:31 05:45 Temperature Pulse Rate 107 H 115 H 129 H Pulse Rate [ Right Dorsalis Pedis] Respiratory 17 19 15 Rate Blood Pressure 192/97 192/97 203/63 O2 Sat by Pulse 100 100 99 Oximetry 09/25/18 09/25/18 09/25/18 06:00 06:08 06:15 Temperature Pulse Rate 92 H 123 H 88 Pulse Rate [ Right Dorsalis Pedis] Respiratory 17 16 Rate Blood Pressure 179/58 203/63 179/58 O2 Sat by Pulse 100 99 Oximetry 09/25/18 09/25/18 09/25/18 06:31 06:45 07:00 Temperature Pulse Rate 95 H 76 81 Pulse Rate [ Right Dorsalis Pedis] Respiratory 16 16 16 Rate Blood Pressure 150/48 147/43 131/48 O2 Sat by Pulse 100 100 95 Oximetry 09/25/18 09/25/18 09/25/18 07:15 07:19 07:31 Temperature Pulse Rate 75 79 75 Pulse Rate [ Right Dorsalis Pedis] Respiratory 16 16 Rate Blood Pressure 147/43 131/48 144/48 O2 Sat by Pulse 94 94 100 Oximetry 09/25/18 09/25/18 09/25/18 07:45 08:00 08:01 Temperature Pulse Rate 65 70 Pulse Rate [ 70 Right Dorsalis Pedis] Respiratory 16 18 17 Rate Blood Pressure 144/48 146/43 O2 Sat by Pulse 100 100 100 Oximetry 09/25/18 09/25/18 09/25/18 08:15 08:31 08:45 Temperature Pulse Rate 77 85 71 Pulse Rate [ Right Dorsalis Pedis] Respiratory 22 23 16 Rate Blood Pressure 146/43 167/52 167/52 O2 Sat by Pulse 100 100 100 Oximetry 09/25/18 09/25/18 09/25/18 09:01 09:09 10:52 Temperature 99.5 F Pulse Rate 70 93 H Pulse Rate [ Right Dorsalis Pedis] Respiratory 16 Rate Blood Pressure 140/49 130/61 O2 Sat by Pulse 100 Oximetry Constitutional: no acute distress, other (obese patient, intubated on that blood pressure support.) Eyes: non-icteric ENT: oropharynx moist, other (ETT without audible rhonchi) Effort: normal Ascultation: Bilateral: clear, diminished breath sounds Cardiovascular: regular rate and rhythm Gastrointestinal: normoactive bowel sounds, non-distended Integumentary: normal Extremities: no cyanosis, no edema Neurologic: other (RASS -1) CBC and BMP: 09/25/18 04:06 09/25/18 04:06 ABG, PT/INR, D-dimer: ABG POC ABG pH 7.477 (7.35-7.45) H 09/25/18 05:16 POC ABG pCO2 40.6 (35-45) 09/25/18 05:16 POC ABG pO2 122 (80-105) H 09/25/18 05:16 POC ABG HCO3 30.1 09/25/18 05:16 POC ABG Total CO2 31 09/25/18 05:16 POC ABG O2 Sat 99 09/25/18 05:16 PT/INR, D-dimer D-Dimer 4401.15 ng/mlDDU (0-234) H 09/21/18 22:56 Abnormal lab findings: Abnormal Labs 09/21/18 09/21/18 09/21/18 22:56 22:56 22:56 RBC 3.05 L Hgb 9.0 L Hct 26.9 L Lymph % (Auto) 9.3 L [place] % (Auto) Lymph # 0.7 L [place] # Seg Neutrophils % 84.0 H D-Dimer POC ABG pH POC ABG pCO2 POC ABG pO2 Potassium 5.2 H Chloride Carbon Dioxide 17 L BUN 53 H Creatinine 6.7 H Glucose 307 H POC Glucose Lactic Acid Calcium 8.2 L CK-MB (CK-2) CK-MB (CK-2) Rel Index Troponin T Albumin 3.6 L Triglycerides Cholesterol LDL Cholesterol Direct Urine WBC (Auto) Urine Creatinine Salicylates < 0.3 L Acetaminophen 09/21/18 09/21/18 09/21/18 22:56 22:56 22:56 RBC Hgb Hct Lymph % (Auto) [place] % (Auto) Lymph # [place] # Seg Neutrophils % D-Dimer 4401.15 H POC ABG pH POC ABG pCO2 POC ABG pO2 Potassium Chloride Carbon Dioxide BUN Creatinine Glucose POC Glucose Lactic Acid 3.70 H* Calcium CK-MB (CK-2) CK-MB (CK-2) Rel Index Troponin T Albumin Triglycerides Cholesterol LDL Cholesterol Direct Urine WBC (Auto) Urine Creatinine Salicylates Acetaminophen < 5.0 L 09/21/18 09/21/18 09/22/18 23:14 23:57 00:48 RBC Hgb Hct Lymph % (Auto) [place] % (Auto) Lymph # [place] # Seg Neutrophils % D-Dimer POC ABG pH 7.234 L 7.322 L POC ABG pCO2 POC ABG pO2 118 H 142 H Potassium Chloride Carbon Dioxide BUN Creatinine Glucose POC Glucose Lactic Acid Calcium CK-MB (CK-2) CK-MB (CK-2) Rel Index Troponin T 0.062 H D Albumin Triglycerides 208 H Cholesterol 206 H LDL Cholesterol Direct 143 H Urine WBC (Auto) Urine Creatinine Salicylates Acetaminophen 09/22/18 09/22/18 09/22/18 04:50 05:03 06:43 RBC Hgb Hct Lymph % (Auto) [place] % (Auto) Lymph # [place] # Seg Neutrophils % D-Dimer POC ABG pH 7.556 H POC ABG pCO2 22.4 L POC ABG pO2 176 H Potassium Chloride Carbon Dioxide BUN Creatinine Glucose POC Glucose 116 H Lactic Acid Calcium CK-MB (CK-2) 4.1 H CK-MB (CK-2) Rel Index 4.7 H Troponin T 0.107 H* D Albumin Triglycerides Cholesterol LDL Cholesterol Direct Urine WBC (Auto) Urine Creatinine Salicylates Acetaminophen 09/22/18 09/22/18 09/22/18 09:12 10:26 18:00 RBC Hgb Hct Lymph % (Auto) [place] % (Auto) Lymph # [place] # Seg Neutrophils % D-Dimer POC ABG pH POC ABG pCO2 POC ABG pO2 Potassium Chloride Carbon Dioxide BUN Creatinine 6.7 H Glucose POC Glucose 124 H Lactic Acid Calcium CK-MB (CK-2) CK-MB (CK-2) Rel Index Troponin T 0.074 H D Albumin Triglycerides Cholesterol LDL Cholesterol Direct Urine WBC (Auto) Urine Creatinine Salicylates Acetaminophen 09/23/18 09/23/18 09/23/18 03:57 04:24 04:24 RBC 2.85 L Hgb 8.0 L Hct 24.4 L Lymph % (Auto) [place] % (Auto) 12.6 H Lymph # [place] # 1.1 H Seg Neutrophils % D-Dimer POC ABG pH POC ABG pCO2 27.2 L POC ABG pO2 113 H Potassium Chloride 113.4 H Carbon Dioxide 19 L BUN 54 H Creatinine 7.0 H Glucose POC Glucose Lactic Acid Calcium 8.3 L CK-MB (CK-2) CK-MB (CK-2) Rel Index Troponin T Albumin Triglycerides Cholesterol LDL Cholesterol Direct Urine WBC (Auto) Urine Creatinine Salicylates Acetaminophen 09/23/18 09/23/18 09/23/18 16:00 16:00 18:47 RBC Hgb Hct Lymph % (Auto) [place] % (Auto) Lymph # [place] # Seg Neutrophils % D-Dimer POC ABG pH POC ABG pCO2 POC ABG pO2 Potassium Chloride Carbon Dioxide BUN Creatinine Glucose POC Glucose 115 H Lactic Acid Calcium CK-MB (CK-2) CK-MB (CK-2) Rel Index Troponin T Albumin Triglycerides Cholesterol LDL Cholesterol Direct Urine WBC (Auto) 13.0 H Urine Creatinine 80.7 H Salicylates Acetaminophen 09/23/18 09/24/18 09/24/18 23:53 04:28 04:28 RBC 2.66 L Hgb 7.6 L Hct 22.5 L Lymph % (Auto) [place] % (Auto) Lymph # [place] # Seg Neutrophils % D-Dimer POC ABG pH POC ABG pCO2 POC ABG pO2 Potassium Chloride Carbon Dioxide BUN 27 H Creatinine 4.8 H Glucose 129 H POC Glucose 145 H Lactic Acid Calcium 8.0 L CK-MB (CK-2) CK-MB (CK-2) Rel Index Troponin T Albumin Triglycerides Cholesterol LDL Cholesterol Direct Urine WBC (Auto) Urine Creatinine Salicylates Acetaminophen 09/24/18 09/24/18 09/24/18 04:56 05:33 12:39 RBC Hgb Hct Lymph % (Auto) [place] % (Auto) Lymph # [place] # Seg Neutrophils % D-Dimer POC ABG pH 7.551 H POC ABG pCO2 32.0 L POC ABG pO2 133 H Potassium Chloride Carbon Dioxide BUN Creatinine Glucose POC Glucose 127 H 171 H Lactic Acid Calcium CK-MB (CK-2) CK-MB (CK-2) Rel Index Troponin T Albumin Triglycerides Cholesterol LDL Cholesterol Direct Urine WBC (Auto) Urine Creatinine Salicylates Acetaminophen 09/24/18 09/24/18 09/25/18 19:57 23:53 04:06 RBC Hgb Hct Lymph % (Auto) [place] % (Auto) Lymph # [place] # Seg Neutrophils % D-Dimer POC ABG pH POC ABG pCO2 POC ABG pO2 Potassium Chloride 97.2 L Carbon Dioxide BUN Creatinine 3.6 H Glucose 118 H POC Glucose 209 H 158 H Lactic Acid Calcium 8.2 L CK-MB (CK-2) CK-MB (CK-2) Rel Index Troponin T Albumin Triglycerides Cholesterol LDL Cholesterol Direct Urine WBC (Auto) Urine Creatinine Salicylates Acetaminophen 09/25/18 09/25/18 09/25/18 04:06 05:16 05:55 RBC 2.73 L Hgb 7.9 L Hct 23.4 L Lymph % (Auto) [place] % (Auto) Lymph # [place] # Seg Neutrophils % D-Dimer POC ABG pH 7.477 H POC ABG pCO2 POC ABG pO2 122 H Potassium Chloride Carbon Dioxide BUN Creatinine Glucose POC Glucose 144 H Lactic Acid Calcium CK-MB (CK-2) CK-MB (CK-2) Rel Index Troponin T Albumin Triglycerides Cholesterol LDL Cholesterol Direct Urine WBC (Auto) Urine Creatinine Salicylates Acetaminophen
--- NOTE | 2018-09-25 12:41 | Cat Scan Report ---
CT HEAD WITHOUT CONTRAST: HISTORY: Altered mental status. TECHNIQUE: Sequential CT images without contrast. FINDINGS: Chronic infarct in the medial right occipital lobe measuring up to 2.3 x 2.0 cm in axial plane is unchanged since 09/22/18. The remaining brain parenchyma demonstrates normal density. There is no evidence for hemorrhage, mass, new area of diminished attenuation, extra-axial fluid collection or midline shift. Ventricular size is within normal limits. The posterior fossa and contents remain unremarkable. IMPRESSION: No acute intracranial process. Chronic right occipital infarct.
[2018-09-25] MEDS ORDERED: SOLU-Medrol IV ONE (13:05)
[2018-09-25] MEDS ORDERED: VERSED IV ONE (16:50)
[2018-09-25] MEDS: SOLU-Medrol IV SCH ×2 (18:15→21:18)
[2018-09-25] MEDS: fentaNYL DRIP Premix 2,000 MCG/100 ML BAG IV SCH ×2 (18:37→22:48)
--- NOTE | 2018-09-25 19:02 | XRay Report ---
FINAL REPORT EXAM: XR ABDOMEN 1V AP HISTORY: NGT placement TECHNIQUE: Frontal portable view of the chest Comparison: Chest x-ray dated September 23, 2017 FINDINGS: The tip and side port of the esophagogastric tube is projected in the region of the stomach. The tip of the endotracheal tube is projected below the level of the clavicles and above the level of the osvaldo. The tip of the right central venous catheter is projected in the region of the superior vena cava. There prominence of the interstitial markings in both lungs similar in appearance to the previous jaya dy. There is improved aeration at the left lung base with persistent pulmonary consolidation left medial lung base.. The cardiac silhouette is enlarged similar in appearance to the previous study. IMPRESSION: 1. Lines and tubes projected to be in satisfactory position. 2. Improved aeration left lung base with persistent pulmonary consolidation left medial lung base.
--- NOTE | 2018-09-25 19:09 | XRay Report ---
FINAL REPORT PROCEDURE: Chest. TECHNIQUE: Chest radiograph anteroposterior view. CPT 02641 HISTORY: Intubation. COMPARISON: Chest 09/23/2018. FINDINGS: The patient is rotated to the left. The heart size is normal. The lungs are grossly clear. There are no pleural effusions. There is an endotracheal tube in satisfactory position. A nasogastric tube ente rs the stomach. There is a right internal jugular venous catheter that terminates in the SVC. IMPRESSION: Satisfactory intubation.
[2018-09-25 20:57] LABS: ANA Screen, IFA Negative (Negative)
[2018-09-25] MEDS: HALDOL IM PRN (22:14)
[2018-09-26] MEDS: HumaLOG SUB-Q SCH ×4 (00:04→17:57)
[2018-09-26] MEDS: ATIVAN IV PRN ×2 (02:16→12:49)
[2018-09-26] MEDS: SOLU-Medrol IV SCH (02:16)
[2018-09-26] MEDS: APRESOLINE IV PRN ×2 (02:22→11:55)
[2018-09-26] MEDS: TYLENOL PO PRN (03:56)
[2018-09-26] MEDS: HALDOL IM PRN (04:45)
[2018-09-26 05:45] LABS: Calcium 8.6 mg/dL (8.4-10.2)
[2018-09-26 06:01] LABS: Albumin 2.5 g/dL (3.8-4.8); Gamma Globulin 0.9 g/dL (0.8-1.7)
[2018-09-26] MEDS: APRESOLINE PO SCH ×3 (08:16→20:36)
[2018-09-26] MEDS: fentaNYL DRIP Premix 2,000 MCG/100 ML BAG IV SCH ×3 (08:17→22:54)
--- NOTE | 2018-09-26 09:12 | Progress Note ---
Assessment and Plan Impression * Advanced chronic kidney disease. Most likely ESRD --Status post right IJ Vas-Cath placement on 09/23/2018. * Acute hypoxic respiratory failure secondary to pneumonia plus /minus fluid overload * Metabolic acidosis -resolved * Hyperkalemia - resolved * Type II diabetes mellitus * Hypertension * Proteinuria Recommendations * Hemodialysis today. Continue MWF and prn schedule * UF as tolerated * Increase hydralazine to 100mg TID * Vent management per CCM * Avoid nephrotoxins * Monitor fluid status and electrolytes closely Subjective Date of service: 09/26/18 Principal diagnosis: acute respiratory failure, end-stage renal disease, AMS Interval history: No acute events overnight Objective - Vital Signs Vital signs: Vital Signs - 12hr 09/25/18 09/25/18 09/25/18 21:12 21:15 21:31 Temperature Pulse Rate 81 79 94 H Pulse Rate [ Right Dorsalis Pedis] Respiratory 19 32 H Rate Blood Pressure 189/88 189/88 186/83 O2 Sat by Pulse 100 100 Oximetry 09/25/18 09/25/18 09/25/18 21:45 22:00 22:01 Temperature Pulse Rate 69 68 105 H Pulse Rate [ Right Dorsalis Pedis] Respiratory 20 23 Rate Blood Pressure 186/83 186/83 O2 Sat by Pulse 100 100 Oximetry 09/25/18 09/25/18 09/25/18 22:15 22:31 22:45 Temperature Pulse Rate 67 80 71 Pulse Rate [ Right Dorsalis Pedis] Respiratory 19 18 18 Rate Blood Pressure 182/144 193/64 193/64 O2 Sat by Pulse 100 100 100 Oximetry 09/25/18 09/25/18 09/25/18 23:01 23:15 23:22 Temperature 99.4 F Pulse Rate 67 67 Pulse Rate [ Right Dorsalis Pedis] Respiratory 19 18 Rate Blood Pressure 155/57 155/57 O2 Sat by Pulse 100 100 Oximetry 09/25/18 09/25/18 09/26/18 23:31 23:45 00:00 Temperature Pulse Rate 64 65 61 Pulse Rate [ 60 Right Dorsalis Pedis] Respiratory 18 18 18 Rate Blood Pressure 135/48 155/57 149/52 O2 Sat by Pulse 100 100 100 Oximetry 09/26/18 09/26/18 09/26/18 00:11 00:15 00:30 Temperature Pulse Rate 60 58 L 60 Pulse Rate [ Right Dorsalis Pedis] Respiratory 18 18 Rate Blood Pressure 135/48 135/48 164/56 O2 Sat by Pulse 100 100 100 Oximetry 09/26/18 09/26/18 09/26/18 00:31 00:45 01:01 Temperature Pulse Rate 60 58 L 106 H Pulse Rate [ Right Dorsalis Pedis] Respiratory 18 18 20 Rate Blood Pressure 164/56 164/56 158/130 O2 Sat by Pulse 100 100 100 Oximetry 09/26/18 09/26/18 09/26/18 01:15 01:31 01:39 Temperature Pulse Rate 77 76 65 Pulse Rate [ Right Dorsalis Pedis] Respiratory 19 20 Rate Blood Pressure 181/73 173/83 O2 Sat by Pulse 100 100 Oximetry 09/26/18 09/26/18 09/26/18 01:45 02:01 02:15 Temperature Pulse Rate 59 L 107 H 63 Pulse Rate [ Right Dorsalis Pedis] Respiratory 18 25 H 18 Rate Blood Pressure 181/73 181/73 210/65 O2 Sat by Pulse 100 100 100 Oximetry 09/26/18 09/26/18 09/26/18 02:22 02:31 02:45 Temperature Pulse Rate 64 83 69 Pulse Rate [ Right Dorsalis Pedis] Respiratory 19 18 Rate Blood Pressure 174/63 192/68 146/47 O2 Sat by Pulse 100 100 Oximetry 09/26/18 09/26/18 09/26/18 03:00 03:15 03:31 Temperature Pulse Rate 65 61 61 Pulse Rate [ Right Dorsalis Pedis] Respiratory 18 18 18 Rate Blood Pressure 132/47 135/44 131/46 O2 Sat by Pulse 98 98 98 Oximetry 09/26/18 09/26/18 09/26/18 03:45 03:46 03:52 Temperature 100.2 F H Pulse Rate 78 73 Pulse Rate [ Right Dorsalis Pedis] Respiratory 19 Rate Blood Pressure 131/46 131/46 O2 Sat by Pulse 100 100 Oximetry 09/26/18 09/26/18 09/26/18 04:00 04:01 04:13 Temperature Pulse Rate 80 78 Pulse Rate [ Right Dorsalis Pedis] Respiratory 15 Rate Blood Pressure 203/74 O2 Sat by Pulse 100 100 Oximetry 09/26/18 09/26/18 09/26/18 04:15 04:31 04:45 Temperature Pulse Rate 82 77 82 Pulse Rate [ Right Dorsalis Pedis] Respiratory 14 14 14 Rate Blood Pressure 195/59 190/56 188/68 O2 Sat by Pulse 100 100 100 Oximetry 09/26/18 09/26/18 09/26/18 05:00 05:15 05:31 Temperature Pulse Rate 82 90 106 H Pulse Rate [ Right Dorsalis Pedis] Respiratory 14 14 15 Rate Blood Pressure 187/76 192/60 213/72 O2 Sat by Pulse 100 100 100 Oximetry 09/26/18 09/26/18 09/26/18 05:45 06:01 06:23 Temperature Pulse Rate 85 83 73 Pulse Rate [ Right Dorsalis Pedis] Respiratory 15 14 Rate Blood Pressure 192/60 180/58 150/41 O2 Sat by Pulse 100 100 97 Oximetry 09/26/18 08:37 Temperature Pulse Rate 77 Pulse Rate [ Right Dorsalis Pedis] Respiratory Rate Blood Pressure 150/41 O2 Sat by Pulse 97 Oximetry - General Appearance General appearance: intubated EENT: ATNC, other (ETT in place) Respiratory: Present: Other (Coarse BS) Cardiology: regular, S1S2 Gastrointestinal: normal, no tenderness, no distended Integumentary: warm and dry Musculoskeletal: other (no edema) - Lab 09/25/18 04:06 09/26/18 04:51 Most recent lab results Calcium 8.6 mg/dL (8.4-10.2) 09/26/18 04:51 Urine Creatinine 80.7 mg/dL (0.1-20.0) H 09/23/18 16:00 Urine Sodium 66 mmol/L 09/23/18 16:00 Medications & Allergies - Medications Allergies/Adverse Reactions: Allergies codeine Adverse Reaction (Verified 09/23/18 10:09) Unknown Home Medications: Home Medications Medication Instructions Recorded Confirmed Last Taken Type ALBUTEROL NEB's [Proventil 0.083% 2.5 mg INHALATION Q6H PRN 09/25/18 09/25/18 Unknown History NEBS] Carvedilol 25 mg PO Q12H 09/25/18 09/25/18 Unknown History Clonidine 0.2 mg PO BID 09/25/18 09/25/18 Unknown History Doxazosin 2 mg PO DAILY 09/25/18 09/25/18 Unknown History Dss 100 mg PO BID 09/25/18 09/25/18 Unknown History Fluticasone [Flonase] 1 spray INNOSTRIL DAILY 09/25/18 09/25/18 Unknown History Insulin NPH/Regular [Novolin 70/30] 20 unit SQ DAILY 09/25/18 09/25/18 Unknown History Isosorbide Mononitrate 30 mg PO DAILY 09/25/18 09/25/18 Unknown History NIFEdipine [Nifedipine ER] 60 mg PO BID 09/25/18 09/25/18 Unknown History Sevelamer Carbonate 1 tab PO TID 09/25/18 09/25/18 Unknown History Simvastatin [Zocor] 1 tab PO DAILY 09/25/18 09/25/18 Unknown History Torsemide [Demadex] 0.5 tab PO DAILY 09/25/18 09/25/18 Unknown History hydrALAZINE 100 mg PO Q8H 09/25/18 09/25/18 Unknown History Active Medications: Generic Name Dose Route Start Last Admin Trade Name Freq PRN Reason Stop Dose Admin Acetaminophen 650 mg 09/22/18 04:14 09/26/18 03:56 Tylenol PO 650 mg Q4H PRN Administration Pain MILD(1-3)/Fever >100.5/MEJIA Lipase/Protease/Amylase 1 each 09/23/18 13:57 Pancreaze 10,500 Unit FEEDTUBE PRN PRN For Clogged Feeding Tube Dextrose 50 ml 09/22/18 04:14 D50w (25gm) Syringe IV PRN PRN Hypoglycemia Enoxaparin Sodium 30 mg 09/22/18 10:00 09/25/18 10:52 Lovenox SUB-Q 30 mg QDAY KAILA Administration Epinephrine 0.5 ml 09/25/18 12:52 S2 Racepinephrine 2.25% IH Q4HRT PRN stridor Famotidine 20 mg 09/22/18 10:00 09/25/18 10:51 Pepcid IV 20 mg DAILY KAILA Administration Haloperidol Lactate 5 mg 09/25/18 14:29 09/26/18 04:45 Haldol IM 5 mg Q6H PRN Administration Agitation Hydralazine HCl 10 mg 09/22/18 19:30 09/26/18 02:22 Apresoline IV 10 mg Q4HR PRN Administration SBP>160 Hydralazine HCl 50 mg 09/24/18 20:00 09/26/18 08:16 Apresoline PO 50 mg TID KAILA Administration Fentanyl Citrate 2,000 mcg in 100 mls @ 3.7 mls/hr 09/22/18 02:00 09/26/18 08:17 Fentanyl Drip Premix IV 2 mcg/kg/hr TITR KAILA 7.4 mls/hr Administration Protocol 1 MCG/KG/HR Propofol 1,000 mg in 100 mls @ 2.22 mls/hr 09/22/18 11:00 09/23/18 17:42 Diprivan 10 Mg/Ml IV 0 mcg/kg/min TITR KAILA 0 mls/hr Titration Protocol 5 MCG/KG/MIN Sodium Chloride 100 mls @ 999 mls/hr 09/23/18 08:40 Nacl 0.9% IV CAROLINE PRN Hypotension Sodium Chloride 100 mls @ 999 mls/hr 09/24/18 12:26 Nacl 0.9% IV CAROLINE PRN Hypotension Sodium Chloride 100 mls @ 999 mls/hr 09/25/18 09:59 Nacl 0.9% IV CAROLINE PRN Hypotension Insulin Human Lispro 0 unit 09/22/18 06:00 09/26/18 06:15 Humalog SUB-Q 2 unit Q6HR KAILA Administration Protocol Labetalol HCl 100 mg 09/24/18 22:00 09/25/18 21:12 Normodyne PO 100 mg BID KAILA Administration Lorazepam 1 mg 09/23/18 10:06 09/26/18 02:16 Ativan IV 1 mg Q4H PRN Administration Agitation Simple Syrup 15 ml 09/23/18 13:57 Simple Syrup FEEDTUBE PRN PRN Hypoglycemia Simple Syrup 30 ml 09/23/18 13:57 Simple Syrup FEEDTUBE PRN PRN Hypoglycemia Sodium Bicarbonate 325 mg 09/23/18 13:57 Sodium Bicarbonate FEEDTUBE PRN PRN For Clogged Feeding Tube Sodium Chloride 10 ml 09/22/18 10:00 09/25/18 22:47 Sodium Chloride Flush Syringe 10 Ml IV 10 ml BID KAILA Administration Sodium Chloride 10 ml 09/22/18 04:14 Sodium Chloride Flush Syringe 10 Ml IV PRN PRN LINE FLUSH
[2018-09-26] MEDS: LOVENOX SUB-Q SCH (10:21)
[2018-09-26] MEDS: PEPCID IV SCH (10:21)
[2018-09-26] MEDS: NORMODYNE PO SCH ×2 (10:23→21:33)
[2018-09-26] MEDS: SODIUM CHLORIDE FLUSH SYRINGE 10 ML IV SCH ×2 (10:23→21:27)
--- NOTE | 2018-09-26 11:15 | Progress Note ---
Assessment and Plan To continue current management including vent.support and dialysis.Control BP.Will follow. - Patient Problems (1) Type 2 diabetes mellitus Current Visit: Yes Status: Chronic (2) Acute respiratory failure Current Visit: Yes Status: Acute (3) Altered mental status Current Visit: Yes Status: Acute (4) Anemia Current Visit: Yes Status: Chronic (5) Elevated troponin Current Visit: Yes Status: Acute (6) Hypoxia Current Visit: Yes Status: Resolved (7) Lactic acid acidosis Current Visit: Yes Status: Resolved (8) Pneumonia Current Visit: Yes Status: Acute Qualifiers: Pneumonia type: due to unspecified organism Laterality: unspecified laterality Lung location: unspecified part of lung Qualified Code(s): J18.9 - Pneumonia, unspecified organism (9) Respiratory failure Current Visit: Yes Status: Acute Qualifiers: Chronicity: acute Respiratory failure complication: hypoxia Qualified Code(s): J96.01 - Acute respiratory failure with hypoxia (10) CKD (chronic kidney disease) Current Visit: Yes Status: Chronic Qualifiers: Chronic kidney disease stage: unspecified stage Qualified Code(s): N18.9 - Chronic kidney disease, unspecified (11) Hypertension Current Visit: Yes Status: Chronic Qualifiers: Hypertension type: essential hypertension Qualified Code(s): I10 - Essential (primary) hypertension (12) Sepsis Current Visit: Yes Status: Suspected Qualifiers: Sepsis type: sepsis due to unspecified organism Qualified Code(s): A41.9 - Sepsis, unspecified organism Subjective Date of service: 09/26/18 Principal diagnosis: acute respiratory failure, end-stage renal disease, AMS Interval history: On vent.Being dialysed. K 4.6, Cr 5.4. Urine & blood cultures: Negative.BP high. Objective Vital Signs Temp Pulse Pulse Pulse Resp Resp BP 09/26/18 10:45 94 H 13 140/47 09/26/18 10:30 60 14 140/47 09/26/18 10:23 63 149/44 09/26/18 10:15 64 16 170/49 09/26/18 10:00 69 16 170/49 09/26/18 09:45 78 16 192/58 09/26/18 09:31 83 18 180/62 09/26/18 09:15 86 17 218/70 09/26/18 09:00 80 16 199/62 09/26/18 08:45 86 21 192/65 09/26/18 08:37 77 150/41 09/26/18 08:31 98 H 22 139/47 09/26/18 08:15 53 L 16 150/50 09/26/18 08:01 49 L 16 139/47 09/26/18 08:00 16 09/26/18 07:45 53 L 16 139/48 09/26/18 07:30 52 L 16 129/48 09/26/18 07:15 53 L 16 133/47 09/26/18 07:00 55 L 16 130/43 09/26/18 06:45 59 L 16 133/45 09/26/18 06:31 64 16 136/43 09/26/18 06:23 73 150/41 09/26/18 06:15 71 14 150/41 09/26/18 06:01 83 14 180/58 09/26/18 05:45 85 15 192/60 09/26/18 05:31 106 H 15 213/72 09/26/18 05:15 90 14 192/60 09/26/18 05:00 82 14 187/76 09/26/18 04:45 82 14 188/68 09/26/18 04:31 77 14 190/56 09/26/18 04:15 82 14 195/59 09/26/18 04:13 78 09/26/18 04:01 80 15 203/74 09/26/18 04:00 09/26/18 03:52 100.2 F H 09/26/18 03:46 73 131/46 09/26/18 03:45 78 19 131/46 09/26/18 03:31 61 18 131/46 09/26/18 03:15 61 18 135/44 09/26/18 03:00 65 18 132/47 09/26/18 02:45 69 18 146/47 09/26/18 02:31 83 19 192/68 09/26/18 02:22 64 174/63 09/26/18 02:15 63 18 210/65 09/26/18 02:01 107 H 25 H 181/73 09/26/18 01:45 59 L 18 181/73 09/26/18 01:39 65 09/26/18 01:31 76 20 173/83 09/26/18 01:15 77 19 181/73 09/26/18 01:01 106 H 20 158/130 09/26/18 00:45 58 L 18 164/56 09/26/18 00:31 60 18 164/56 09/26/18 00:30 60 164/56 09/26/18 00:15 58 L 18 135/48 09/26/18 00:11 60 18 135/48 09/26/18 00:00 61 60 18 149/52 09/25/18 23:45 65 18 155/57 09/25/18 23:31 64 18 135/48 09/25/18 23:22 99.4 F 09/25/18 23:15 67 18 155/57 09/25/18 23:01 67 19 155/57 09/25/18 22:45 71 18 193/64 09/25/18 22:31 80 18 193/64 09/25/18 22:15 67 19 182/144 09/25/18 22:01 105 H 23 186/83 09/25/18 22:00 68 09/25/18 21:45 69 20 186/83 09/25/18 21:31 94 H 32 H 186/83 09/25/18 21:15 79 19 189/88 09/25/18 21:12 81 189/88 09/25/18 21:01 90 23 161/98 09/25/18 20:45 83 18 149/55 09/25/18 20:30 64 18 149/55 09/25/18 20:29 68 149/55 09/25/18 20:15 73 17 163/58 09/25/18 20:01 76 17 163/58 09/25/18 20:00 99.9 F H 62 18 09/25/18 19:45 68 18 152/58 09/25/18 19:30 85 18 152/58 09/25/18 19:15 73 18 156/63 09/25/18 19:01 86 18 156/63 09/25/18 18:45 103 H 18 193/63 09/25/18 18:31 97 H 16 193/63 09/25/18 18:21 106 H 188/70 09/25/18 18:15 88 16 188/70 09/25/18 18:00 96 H 16 188/70 09/25/18 17:45 102 H 16 175/65 02/07/19 17:31 126 H 29 H 175/65 09/25/18 17:22 93 H 120/54 09/25/18 17:15 118 H 15 193/68 09/25/18 17:00 106 H 15 193/68 09/25/18 16:45 101 H 17 175/65 09/25/18 16:31 103 H 22 175/65 09/25/18 16:21 102 H 16 139/55 09/25/18 16:15 101 H 15 139/55 09/25/18 16:00 99.0 F 106 H 105 H 15 139/55 09/25/18 15:45 108 H 15 120/54 09/25/18 15:31 115 H 13 120/54 09/25/18 15:15 110 H 11 L 125/48 09/25/18 15:00 113 H 13 125/48 09/25/18 14:45 113 H 12 101/49 09/25/18 14:30 117 H 13 101/49 09/25/18 14:15 118 H 12 129/46 09/25/18 14:00 120 H 12 129/46 09/25/18 13:45 122 H 12 134/61 09/25/18 13:31 126 H 13 134/61 09/25/18 13:20 134 H 14 09/25/18 13:15 133 H 12 196/67 09/25/18 13:10 133 H 14 09/25/18 13:01 134 H 14 196/67 09/25/18 12:45 113 H 15 09/25/18 12:31 94 H 15 09/25/18 12:17 108 H 09/25/18 12:00 99.2 F 98 H 16 09/25/18 11:45 88 17 181/70 09/25/18 11:31 114 H 20 195/118 09/25/18 11:15 74 16 130/61 Pulse Ox 09/26/18 10:45 100 09/26/18 10:30 100 09/26/18 10:23 09/26/18 10:15 100 09/26/18 10:00 100 09/26/18 09:45 100 09/26/18 09:31 100 09/26/18 09:15 100 09/26/18 09:00 100 09/26/18 08:45 100 09/26/18 08:37 97 09/26/18 08:31 100 09/26/18 08:15 100 09/26/18 08:01 100 09/26/18 08:00 100 09/26/18 07:45 100 09/26/18 07:30 100 09/26/18 07:15 100 09/26/18 07:00 100 09/26/18 06:45 97 09/26/18 06:31 97 09/26/18 06:23 97 09/26/18 06:15 97 09/26/18 06:01 100 09/26/18 05:45 100 09/26/18 05:31 100 09/26/18 05:15 100 09/26/18 05:00 100 09/26/18 04:45 100 09/26/18 04:31 100 09/26/18 04:15 100 09/26/18 04:13 09/26/18 04:01 100 09/26/18 04:00 100 09/26/18 03:52 09/26/18 03:46 100 09/26/18 03:45 100 09/26/18 03:31 98 09/26/18 03:15 98 09/26/18 03:00 98 09/26/18 02:45 100 09/26/18 02:31 100 09/26/18 02:22 09/26/18 02:15 100 09/26/18 02:01 100 09/26/18 01:45 100 09/26/18 01:39 09/26/18 01:31 100 09/26/18 01:15 100 09/26/18 01:01 100 09/26/18 00:45 100 09/26/18 00:31 100 09/26/18 00:30 100 09/26/18 00:15 100 09/26/18 00:11 100 09/26/18 00:00 100 09/25/18 23:45 100 09/25/18 23:31 100 09/25/18 23:22 09/25/18 23:15 100 09/25/18 23:01 100 09/25/18 22:45 100 09/25/18 22:31 100 09/25/18 22:15 100 09/25/18 22:01 100 09/25/18 22:00 09/25/18 21:45 100 09/25/18 21:31 100 09/25/18 21:15 100 09/25/18 21:12 09/25/18 21:01 100 09/25/18 20:45 100 09/25/18 20:30 100 09/25/18 20:29 100 09/25/18 20:15 100 09/25/18 20:01 100 09/25/18 20:00 100 09/25/18 19:45 100 09/25/18 19:30 100 09/25/18 19:15 100 09/25/18 19:01 100 09/25/18 18:45 100 09/25/18 18:31 99 09/25/18 18:21 09/25/18 18:15 99 09/25/18 18:00 98 09/25/18 17:45 98 09/25/18 17:31 99 09/25/18 17:22 98 09/25/18 17:15 100 09/25/18 17:00 100 09/25/18 16:45 99 09/25/18 16:31 99 09/25/18 16:21 98 09/25/18 16:15 99 09/25/18 16:00 95 09/25/18 15:45 95 09/25/18 15:31 98 09/25/18 15:15 99 09/25/18 15:00 99 09/25/18 14:45 97 09/25/18 14:30 96 09/25/18 14:15 96 09/25/18 14:00 96 09/25/18 13:45 96 09/25/18 13:31 95 09/25/18 13:20 09/25/18 13:15 99 09/25/18 13:10 09/25/18 13:01 98 09/25/18 12:45 93 09/25/18 12:31 100 09/25/18 12:17 09/25/18 12:00 100 09/25/18 11:45 100 09/25/18 11:31 100 09/25/18 11:15 100 - Physical Examination General: Other (intubated, FIO2 35, PEEP 6) HEENT: Positive: PERRL, EOMI, Normocephaly Neck: Positive: neck supple, trachea midline. Negative: JVD/HJR, Masses Cardiac: Positive: Reg Rate and Rhythm Lungs: Positive: clear to auscultation, Normal Breath Sounds Neuro: Positive: Other (intubated) Abdomen: Positive: Unremarkable, Soft Skin: Negative: Rash, Wound Musculoskeletal: No Fluid Collection, No Pain Extremities: Present: edema (trace BLE) - Labs and Meds Comprehensive Metabolic Panel 09/23/18 09/26/18 Range/Units 05:32 04:51 Sodium 139 (137-145) mmol/L Potassium 4.6 (3.6-5.0) mmol/L Chloride 95.5 L (98-107) mmol/L Carbon Dioxide 22 (22-30) mmol/L BUN 34 H (7-17) mg/dL Creatinine 5.4 H (0.7-1.2) mg/dL Glucose 185 H (65-100) mg/dL Calcium 8.6 (8.4-10.2) mg/dL Albumin 2.5 L (3.8-4.8) g/dL - Imaging and Cardiology EKG: report reviewed, image reviewed Echo: report reviewed (EF 50-55%, mild LVH, LA mildly dilated, mild MR, trace TR, right pleural effusion. ) - Telemetry EKG Rhythm: Sinus Rhythm - EKG Sinus rhythms and dysrhythmias: sinus rhythm
[2018-09-26] MEDS ORDERED: QUELICIN ONE (11:41)
[2018-09-26 12:33] LABS: Myeloperoxidase Antibody <1.0 AI (<1.0)
--- NOTE | 2018-09-26 12:40 | Progress Note ---
Assessment and Plan 68 y/o female with acute respiratory failure and ESRD. Subjective Date of service: 09/26/18 Principal diagnosis: acute respiratory failure, end-stage renal disease, AMS Interval history: Patient had to be re-intubated last night. Per nursing, unresponsive and hypoxic. This am awake and alert on Vent. Currently undergoing HD. CXR from post intubation auguste snot show acute disease. ABG this am was adequate. Objective Vital Signs - 12hr 09/26/18 09/26/18 09/26/18 00:45 01:01 01:15 Temperature Pulse Rate 58 L 106 H 77 Respiratory 18 20 19 Rate Blood Pressure 164/56 158/130 181/73 O2 Sat by Pulse 100 100 100 Oximetry O2 Sat by Pulse Oximetry [ Anterior Bilateral Throughout] 09/26/18 09/26/18 09/26/18 01:31 01:39 01:45 Temperature Pulse Rate 76 65 59 L Respiratory 20 18 Rate Blood Pressure 173/83 181/73 O2 Sat by Pulse 100 100 Oximetry O2 Sat by Pulse Oximetry [ Anterior Bilateral Throughout] 09/26/18 09/26/18 09/26/18 02:01 02:15 02:22 Temperature Pulse Rate 107 H 63 64 Respiratory 25 H 18 Rate Blood Pressure 181/73 210/65 174/63 O2 Sat by Pulse 100 100 Oximetry O2 Sat by Pulse Oximetry [ Anterior Bilateral Throughout] 09/26/18 09/26/18 09/26/18 02:31 02:45 03:00 Temperature Pulse Rate 83 69 65 Respiratory 19 18 18 Rate Blood Pressure 192/68 146/47 132/47 O2 Sat by Pulse 100 100 98 Oximetry O2 Sat by Pulse Oximetry [ Anterior Bilateral Throughout] 09/26/18 09/26/18 09/26/18 03:15 03:31 03:45 Temperature Pulse Rate 61 61 78 Respiratory 18 18 19 Rate Blood Pressure 135/44 131/46 131/46 O2 Sat by Pulse 98 98 100 Oximetry O2 Sat by Pulse Oximetry [ Anterior Bilateral Throughout] 09/26/18 09/26/18 09/26/18 03:46 03:52 04:00 Temperature 100.2 F H Pulse Rate 73 Respiratory Rate Blood Pressure 131/46 O2 Sat by Pulse 100 100 Oximetry O2 Sat by Pulse Oximetry [ Anterior Bilateral Throughout] 02/08/19 02/08/19 02/08/19 04:01 04:13 04:15 Temperature Pulse Rate 80 78 82 Respiratory 15 14 Rate Blood Pressure 203/74 195/59 O2 Sat by Pulse 100 100 Oximetry O2 Sat by Pulse Oximetry [ Anterior Bilateral Throughout] 09/26/18 09/26/18 09/26/18 04:31 04:45 05:00 Temperature Pulse Rate 77 82 82 Respiratory 14 14 14 Rate Blood Pressure 190/56 188/68 187/76 O2 Sat by Pulse 100 100 100 Oximetry O2 Sat by Pulse Oximetry [ Anterior Bilateral Throughout] 09/26/18 09/26/18 09/26/18 05:15 05:31 05:45 Temperature Pulse Rate 90 106 H 85 Respiratory 14 15 15 Rate Blood Pressure 192/60 213/72 192/60 O2 Sat by Pulse 100 100 100 Oximetry O2 Sat by Pulse Oximetry [ Anterior Bilateral Throughout] 09/26/18 09/26/18 09/26/18 06:01 06:15 06:23 Temperature Pulse Rate 83 71 73 Respiratory 14 14 Rate Blood Pressure 180/58 150/41 150/41 O2 Sat by Pulse 100 97 97 Oximetry O2 Sat by Pulse Oximetry [ Anterior Bilateral Throughout] 09/26/18 09/26/18 09/26/18 06:31 06:45 07:00 Temperature Pulse Rate 64 59 L 55 L Respiratory 16 16 16 Rate Blood Pressure 136/43 133/45 130/43 O2 Sat by Pulse 97 97 100 Oximetry O2 Sat by Pulse Oximetry [ Anterior Bilateral Throughout] 09/26/18 09/26/18 09/26/18 07:15 07:30 07:45 Temperature Pulse Rate 53 L 52 L 53 L Respiratory 16 16 16 Rate Blood Pressure 133/47 129/48 139/48 O2 Sat by Pulse 100 100 100 Oximetry O2 Sat by Pulse Oximetry [ Anterior Bilateral Throughout] 09/26/18 09/26/18 09/26/18 08:00 08:01 08:15 Temperature 98.3 F Pulse Rate 49 L 53 L Respiratory 16 16 16 Rate Blood Pressure 139/47 150/50 O2 Sat by Pulse 100 100 100 Oximetry O2 Sat by Pulse Oximetry [ Anterior Bilateral Throughout] 09/26/18 09/26/18 09/26/18 08:31 08:37 08:45 Temperature Pulse Rate 98 H 77 86 Respiratory 22 21 Rate Blood Pressure 139/47 150/41 192/65 O2 Sat by Pulse 100 97 100 Oximetry O2 Sat by Pulse Oximetry [ Anterior Bilateral Throughout] 09/26/18 09/26/18 09/26/18 09:00 09:15 09:31 Temperature Pulse Rate 80 86 83 Respiratory 16 17 18 Rate Blood Pressure 199/62 218/70 180/62 O2 Sat by Pulse 100 100 100 Oximetry O2 Sat by Pulse Oximetry [ Anterior Bilateral Throughout] 09/26/18 09/26/18 09/26/18 09:45 10:00 10:15 Temperature Pulse Rate 78 69 64 Respiratory 16 16 16 Rate Blood Pressure 192/58 170/49 170/49 O2 Sat by Pulse 100 100 100 Oximetry O2 Sat by Pulse Oximetry [ Anterior Bilateral Throughout] 09/26/18 09/26/18 09/26/18 10:23 10:30 10:45 Temperature 98.0 F Pulse Rate 63 78 78 Respiratory 15 13 Rate Blood Pressure 149/44 163/68 163/68 O2 Sat by Pulse 100 100 Oximetry O2 Sat by Pulse 100 Oximetry [ Anterior Bilateral Throughout] 09/26/18 09/26/18 09/26/18 11:00 11:15 11:30 Temperature Pulse Rate 71 73 73 Respiratory Rate Blood Pressure 193/62 198/67 188/47 O2 Sat by Pulse Oximetry O2 Sat by Pulse Oximetry [ Anterior Bilateral Throughout] 09/26/18 09/26/18 09/26/18 11:37 11:45 11:55 Temperature Pulse Rate 73 77 100 H Respiratory Rate Blood Pressure 188/47 201/58 201/58 O2 Sat by Pulse 100 Oximetry O2 Sat by Pulse Oximetry [ Anterior Bilateral Throughout] 09/26/18 09/26/18 09/26/18 12:00 12:15 12:30 Temperature Pulse Rate 84 92 H 107 H Respiratory Rate Blood Pressure 183/53 193/62 198/60 O2 Sat by Pulse Oximetry O2 Sat by Pulse Oximetry [ Anterior Bilateral Throughout] Constitutional: no acute distress, other (orally intubated and sedated, but awake, nods appropriately and follows commands) Eyes: non-icteric ENT: oropharynx moist, other (orally intubated) Effort: normal Ascultation: Bilateral: clear, diminished breath sounds Cardiovascular: regular rate and rhythm Gastrointestinal: normoactive bowel sounds, non-distended Integumentary: normal Extremities: no cyanosis, no edema Neurologic: other (RASS -1) CBC and BMP: 09/25/18 04:06 09/26/18 04:51 ABG, PT/INR, D-dimer: ABG POC ABG pH 7.330 (7.35-7.45) L 09/26/18 06:23 POC ABG pCO2 49.9 (35-45) H 09/26/18 06:23 POC ABG pO2 81 (80-105) 09/26/18 06:23 POC ABG HCO3 26.3 09/26/18 06:23 POC ABG Total CO2 28 09/26/18 06:23 POC ABG O2 Sat 95 09/26/18 06:23 PT/INR, D-dimer D-Dimer 4401.15 ng/mlDDU (0-234) H 09/21/18 22:56 Abnormal lab findings: Abnormal Labs 09/21/18 09/21/18 09/21/18 22:56 22:56 22:56 RBC 3.05 L Hgb 9.0 L Hct 26.9 L Lymph % (Auto) 9.3 L [place] % (Auto) Lymph # 0.7 L [place] # Seg Neutrophils % 84.0 H D-Dimer POC ABG pH POC ABG pCO2 POC ABG pO2 Potassium 5.2 H Chloride Carbon Dioxide 17 L BUN 53 H Creatinine 6.7 H Glucose 307 H POC Glucose Lactic Acid Calcium 8.2 L CK-MB (CK-2) CK-MB (CK-2) Rel Index Troponin T Serum Total Protein Albumin 3.6 L Pxovb-0-Ioyxxrzwy PEP Interpretation Triglycerides Cholesterol LDL Cholesterol Direct Urine WBC (Auto) Urine Creatinine Salicylates < 0.3 L Acetaminophen 09/21/18 09/21/18 09/21/18 22:56 22:56 22:56 RBC Hgb Hct Lymph % (Auto) [place] % (Auto) Lymph # [place] # Seg Neutrophils % D-Dimer 4401.15 H POC ABG pH POC ABG pCO2 POC ABG pO2 Potassium Chloride Carbon Dioxide BUN Creatinine Glucose POC Glucose Lactic Acid 3.70 H* Calcium CK-MB (CK-2) CK-MB (CK-2) Rel Index Troponin T Serum Total Protein Albumin Uoldg-4-Ulngfihdw PEP Interpretation Triglycerides Cholesterol LDL Cholesterol Direct Urine WBC (Auto) Urine Creatinine Salicylates Acetaminophen < 5.0 L 02/03/19 02/03/19 02/04/19 23:14 23:57 00:48 RBC Hgb Hct Lymph % (Auto) [place] % (Auto) Lymph # [place] # Seg Neutrophils % D-Dimer POC ABG pH 7.234 L 7.322 L POC ABG pCO2 POC ABG pO2 118 H 142 H Potassium Chloride Carbon Dioxide BUN Creatinine Glucose POC Glucose Lactic Acid Calcium CK-MB (CK-2) CK-MB (CK-2) Rel Index Troponin T 0.062 H D Serum Total Protein Albumin Xkflf-1-Xftqprurf PEP Interpretation Triglycerides 208 H Cholesterol 206 H LDL Cholesterol Direct 143 H Urine WBC (Auto) Urine Creatinine Salicylates Acetaminophen 09/22/18 09/22/18 09/22/18 04:50 05:03 06:43 RBC Hgb Hct Lymph % (Auto) [place] % (Auto) Lymph # [place] # Seg Neutrophils % D-Dimer POC ABG pH 7.556 H POC ABG pCO2 22.4 L POC ABG pO2 176 H Potassium Chloride Carbon Dioxide BUN Creatinine Glucose POC Glucose 116 H Lactic Acid Calcium CK-MB (CK-2) 4.1 H CK-MB (CK-2) Rel Index 4.7 H Troponin T 0.107 H* D Serum Total Protein Albumin Gpmfo-8-Vuhqcunqi PEP Interpretation Triglycerides Cholesterol LDL Cholesterol Direct Urine WBC (Auto) Urine Creatinine Salicylates Acetaminophen 09/22/18 09/22/18 09/22/18 09:12 10:26 18:00 RBC Hgb Hct Lymph % (Auto) [place] % (Auto) Lymph # [place] # Seg Neutrophils % D-Dimer POC ABG pH POC ABG pCO2 POC ABG pO2 Potassium Chloride Carbon Dioxide BUN Creatinine 6.7 H Glucose POC Glucose 124 H Lactic Acid Calcium CK-MB (CK-2) CK-MB (CK-2) Rel Index Troponin T 0.074 H D Serum Total Protein Albumin Mnlvx-1-Lfkbphume PEP Interpretation Triglycerides Cholesterol LDL Cholesterol Direct Urine WBC (Auto) Urine Creatinine Salicylates Acetaminophen 09/23/18 09/23/18 09/23/18 03:57 04:24 04:24 RBC 2.85 L Hgb 8.0 L Hct 24.4 L Lymph % (Auto) [place] % (Auto) 12.6 H Lymph # [place] # 1.1 H Seg Neutrophils % D-Dimer POC ABG pH POC ABG pCO2 27.2 L POC ABG pO2 113 H Potassium Chloride 113.4 H Carbon Dioxide 19 L BUN 54 H Creatinine 7.0 H Glucose POC Glucose Lactic Acid Calcium 8.3 L CK-MB (CK-2) CK-MB (CK-2) Rel Index Troponin T Serum Total Protein Albumin Vxlbi-8-Metxsnyuq PEP Interpretation Triglycerides Cholesterol LDL Cholesterol Direct Urine WBC (Auto) Urine Creatinine Salicylates Acetaminophen 09/23/18 09/23/18 09/23/18 05:32 16:00 16:00 RBC Hgb Hct Lymph % (Auto) [place] % (Auto) Lymph # [place] # Seg Neutrophils % D-Dimer POC ABG pH POC ABG pCO2 POC ABG pO2 Potassium Chloride Carbon Dioxide BUN Creatinine Glucose POC Glucose Lactic Acid Calcium CK-MB (CK-2) CK-MB (CK-2) Rel Index Troponin T Serum Total Protein 5.2 L Albumin 2.5 L Lgfek-3-Lyzbvhjts 0.4 H PEP Interpretation see below H Triglycerides Cholesterol LDL Cholesterol Direct Urine WBC (Auto) 13.0 H Urine Creatinine 80.7 H Salicylates Acetaminophen 09/23/18 09/23/18 09/24/18 18:47 23:53 04:28 RBC 2.66 L Hgb 7.6 L Hct 22.5 L Lymph % (Auto) [place] % (Auto) Lymph # [place] # Seg Neutrophils % D-Dimer POC ABG pH POC ABG pCO2 POC ABG pO2 Potassium Chloride Carbon Dioxide BUN Creatinine Glucose POC Glucose 115 H 145 H Lactic Acid Calcium CK-MB (CK-2) CK-MB (CK-2) Rel Index Troponin T Serum Total Protein Albumin Oinlm-8-Ocbcdxxbg PEP Interpretation Triglycerides Cholesterol LDL Cholesterol Direct Urine WBC (Auto) Urine Creatinine Salicylates Acetaminophen 09/24/18 09/24/18 09/24/18 04:28 04:56 05:33 RBC Hgb Hct Lymph % (Auto) [place] % (Auto) Lymph # [place] # Seg Neutrophils % D-Dimer POC ABG pH 7.551 H POC ABG pCO2 32.0 L POC ABG pO2 133 H Potassium Chloride Carbon Dioxide BUN 27 H Creatinine 4.8 H Glucose 129 H POC Glucose 127 H Lactic Acid Calcium 8.0 L CK-MB (CK-2) CK-MB (CK-2) Rel Index Troponin T Serum Total Protein Albumin Thnfe-3-Slqnhzoij PEP Interpretation Triglycerides Cholesterol LDL Cholesterol Direct Urine WBC (Auto) Urine Creatinine Salicylates Acetaminophen 09/24/18 09/24/18 09/24/18 12:39 19:57 23:53 RBC Hgb Hct Lymph % (Auto) [place] % (Auto) Lymph # [place] # Seg Neutrophils % D-Dimer POC ABG pH POC ABG pCO2 POC ABG pO2 Potassium Chloride Carbon Dioxide BUN Creatinine Glucose POC Glucose 171 H 209 H 158 H Lactic Acid Calcium CK-MB (CK-2) CK-MB (CK-2) Rel Index Troponin T Serum Total Protein Albumin Govkx-0-Jncsfkdot PEP Interpretation Triglycerides Cholesterol LDL Cholesterol Direct Urine WBC (Auto) Urine Creatinine Salicylates Acetaminophen 09/25/18 09/25/18 09/25/18 04:06 04:06 05:16 RBC 2.73 L Hgb 7.9 L Hct 23.4 L Lymph % (Auto) [place] % (Auto) Lymph # [place] # Seg Neutrophils % D-Dimer POC ABG pH 7.477 H POC ABG pCO2 POC ABG pO2 122 H Potassium Chloride 97.2 L Carbon Dioxide BUN Creatinine 3.6 H Glucose 118 H POC Glucose Lactic Acid Calcium 8.2 L CK-MB (CK-2) CK-MB (CK-2) Rel Index Troponin T Serum Total Protein Albumin Ghhts-1-Vetxjnwnd PEP Interpretation Triglycerides Cholesterol LDL Cholesterol Direct Urine WBC (Auto) Urine Creatinine Salicylates Acetaminophen 09/25/18 09/25/18 09/25/18 05:55 12:29 16:21 RBC Hgb Hct Lymph % (Auto) [place] % (Auto) Lymph # [place] # Seg Neutrophils % D-Dimer POC ABG pH 7.216 L POC ABG pCO2 79.9 H POC ABG pO2 Potassium Chloride Carbon Dioxide BUN Creatinine Glucose POC Glucose 144 H 128 H Lactic Acid Calcium CK-MB (CK-2) CK-MB (CK-2) Rel Index Troponin T Serum Total Protein Albumin Rshym-5-Lwkkjjwhk PEP Interpretation Triglycerides Cholesterol LDL Cholesterol Direct Urine WBC (Auto) Urine Creatinine Salicylates Acetaminophen 09/25/18 09/25/18 09/25/18 18:27 18:44 23:56 RBC Hgb Hct Lymph % (Auto) [place] % (Auto) Lymph # [place] # Seg Neutrophils % D-Dimer POC ABG pH POC ABG pCO2 53.2 H POC ABG pO2 78 L Potassium Chloride Carbon Dioxide BUN Creatinine Glucose POC Glucose 264 H 170 H Lactic Acid Calcium CK-MB (CK-2) CK-MB (CK-2) Rel Index Troponin T Serum Total Protein Albumin Idpss-8-Nxmlbdcyh PEP Interpretation Triglycerides Cholesterol LDL Cholesterol Direct Urine WBC (Auto) Urine Creatinine Salicylates Acetaminophen 09/26/18 09/26/18 09/26/18 03:46 04:51 05:04 RBC Hgb Hct Lymph % (Auto) [place] % (Auto) Lymph # [place] # Seg Neutrophils % D-Dimer POC ABG pH 7.584 H POC ABG pCO2 30.9 L POC ABG pO2 151 H Potassium Chloride 95.5 L Carbon Dioxide BUN 34 H Creatinine 5.4 H Glucose 185 H POC Glucose 186 H Lactic Acid Calcium CK-MB (CK-2) CK-MB (CK-2) Rel Index Troponin T Serum Total Protein Albumin Tyjha-1-Bezxkoecm PEP Interpretation Triglycerides Cholesterol LDL Cholesterol Direct Urine WBC (Auto) Urine Creatinine Salicylates Acetaminophen 09/26/18 06:23 RBC Hgb Hct Lymph % (Auto) [place] % (Auto) Lymph # [place] # Seg Neutrophils % D-Dimer POC ABG pH 7.330 L POC ABG pCO2 49.9 H POC ABG pO2 Potassium Chloride Carbon Dioxide BUN Creatinine Glucose POC Glucose Lactic Acid Calcium CK-MB (CK-2) CK-MB (CK-2) Rel Index Troponin T Serum Total Protein Albumin Kroyb-4-Ujwxdmtac PEP Interpretation Triglycerides Cholesterol LDL Cholesterol Direct Urine WBC (Auto) Urine Creatinine Salicylates Acetaminophen Chest x-ray: image reviewed
--- NOTE | 2018-09-26 13:27 | Progress Note ---
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 suspect encephalopathy from metabolic issues rec EEG Objective - Vital Sign Vital Signs - 12hr 09/26/18 09/26/18 09/26/18 01:31 01:39 01:45 Temperature Pulse Rate 76 65 59 L Respiratory 20 18 Rate Blood Pressure 173/83 181/73 O2 Sat by Pulse 100 100 Oximetry O2 Sat by Pulse Oximetry [ Anterior Bilateral Throughout] 09/26/18 09/26/18 09/26/18 02:01 02:15 02:22 Temperature Pulse Rate 107 H 63 64 Respiratory 25 H 18 Rate Blood Pressure 181/73 210/65 174/63 O2 Sat by Pulse 100 100 Oximetry O2 Sat by Pulse Oximetry [ Anterior Bilateral Throughout] 09/26/18 09/26/18 09/26/18 02:31 02:45 03:00 Temperature Pulse Rate 83 69 65 Respiratory 19 18 18 Rate Blood Pressure 192/68 146/47 132/47 O2 Sat by Pulse 100 100 98 Oximetry O2 Sat by Pulse Oximetry [ Anterior Bilateral Throughout] 09/26/18 09/26/18 09/26/18 03:15 03:31 03:45 Temperature Pulse Rate 61 61 78 Respiratory 18 18 19 Rate Blood Pressure 135/44 131/46 131/46 O2 Sat by Pulse 98 98 100 Oximetry O2 Sat by Pulse Oximetry [ Anterior Bilateral Throughout] 09/26/18 09/26/18 09/26/18 03:46 03:52 04:00 Temperature 100.2 F H Pulse Rate 73 Respiratory Rate Blood Pressure 131/46 O2 Sat by Pulse 100 100 Oximetry O2 Sat by Pulse Oximetry [ Anterior Bilateral Throughout] 09/26/18 09/26/18 09/26/18 04:01 04:13 04:15 Temperature Pulse Rate 80 78 82 Respiratory 15 14 Rate Blood Pressure 203/74 195/59 O2 Sat by Pulse 100 100 Oximetry O2 Sat by Pulse Oximetry [ Anterior Bilateral Throughout] 09/26/18 09/26/18 09/26/18 04:31 04:45 05:00 Temperature Pulse Rate 77 82 82 Respiratory 14 14 14 Rate Blood Pressure 190/56 188/68 187/76 O2 Sat by Pulse 100 100 100 Oximetry O2 Sat by Pulse Oximetry [ Anterior Bilateral Throughout] 09/26/18 09/26/18 09/26/18 05:15 05:31 05:45 Temperature Pulse Rate 90 106 H 85 Respiratory 14 15 15 Rate Blood Pressure 192/60 213/72 192/60 O2 Sat by Pulse 100 100 100 Oximetry O2 Sat by Pulse Oximetry [ Anterior Bilateral Throughout] 09/26/18 09/26/18 09/26/18 06:01 06:15 06:23 Temperature Pulse Rate 83 71 73 Respiratory 14 14 Rate Blood Pressure 180/58 150/41 150/41 O2 Sat by Pulse 100 97 97 Oximetry O2 Sat by Pulse Oximetry [ Anterior Bilateral Throughout] 09/26/18 09/26/18 09/26/18 06:31 06:45 07:00 Temperature Pulse Rate 64 59 L 55 L Respiratory 16 16 16 Rate Blood Pressure 136/43 133/45 130/43 O2 Sat by Pulse 97 97 100 Oximetry O2 Sat by Pulse Oximetry [ Anterior Bilateral Throughout] 09/26/18 09/26/18 09/26/18 07:15 07:30 07:45 Temperature Pulse Rate 53 L 52 L 53 L Respiratory 16 16 16 Rate Blood Pressure 133/47 129/48 139/48 O2 Sat by Pulse 100 100 100 Oximetry O2 Sat by Pulse Oximetry [ Anterior Bilateral Throughout] 09/26/18 09/26/18 09/26/18 08:00 08:01 08:15 Temperature 98.3 F Pulse Rate 49 L 53 L Respiratory 16 16 16 Rate Blood Pressure 139/47 150/50 O2 Sat by Pulse 100 100 100 Oximetry O2 Sat by Pulse Oximetry [ Anterior Bilateral Throughout] 09/26/18 09/26/18 09/26/18 08:31 08:37 08:45 Temperature Pulse Rate 98 H 77 86 Respiratory 22 21 Rate Blood Pressure 139/47 150/41 192/65 O2 Sat by Pulse 100 97 100 Oximetry O2 Sat by Pulse Oximetry [ Anterior Bilateral Throughout] 09/26/18 09/26/18 09/26/18 09:00 09:15 09:31 Temperature Pulse Rate 80 86 83 Respiratory 16 17 18 Rate Blood Pressure 199/62 218/70 180/62 O2 Sat by Pulse 100 100 100 Oximetry O2 Sat by Pulse Oximetry [ Anterior Bilateral Throughout] 09/26/18 09/26/18 09/26/18 09:45 10:00 10:15 Temperature Pulse Rate 78 69 64 Respiratory 16 16 16 Rate Blood Pressure 192/58 170/49 170/49 O2 Sat by Pulse 100 100 100 Oximetry O2 Sat by Pulse Oximetry [ Anterior Bilateral Throughout] 09/26/18 09/26/18 09/26/18 10:23 10:30 10:45 Temperature 98.0 F Pulse Rate 63 78 78 Respiratory 15 13 Rate Blood Pressure 149/44 163/68 163/68 O2 Sat by Pulse 100 100 Oximetry O2 Sat by Pulse 100 Oximetry [ Anterior Bilateral Throughout] 09/26/18 09/26/18 09/26/18 11:00 11:15 11:30 Temperature Pulse Rate 71 73 73 Respiratory Rate Blood Pressure 193/62 198/67 188/47 O2 Sat by Pulse Oximetry O2 Sat by Pulse Oximetry [ Anterior Bilateral Throughout] 09/26/18 09/26/18 09/26/18 11:37 11:45 11:55 Temperature Pulse Rate 73 77 100 H Respiratory Rate Blood Pressure 188/47 201/58 201/58 O2 Sat by Pulse 100 Oximetry O2 Sat by Pulse Oximetry [ Anterior Bilateral Throughout] 09/26/18 09/26/18 09/26/18 12:00 12:15 12:30 Temperature Pulse Rate 84 92 H 107 H Respiratory Rate Blood Pressure 183/53 193/62 198/60 O2 Sat by Pulse Oximetry O2 Sat by Pulse Oximetry [ Anterior Bilateral Throughout] 09/26/18 09/26/18 09/26/18 12:45 13:00 13:15 Temperature Pulse Rate 97 H 95 H 95 H Respiratory Rate Blood Pressure 183/56 172/56 162/51 O2 Sat by Pulse Oximetry O2 Sat by Pulse Oximetry [ Anterior Bilateral Throughout] - Laboratory Findings CBC and BMP: 09/25/18 04:06 09/26/18 04:51 Abnormal Lab Findings: Abnormal Labs 09/21/18 09/21/18 09/21/18 22:56 22:56 22:56 RBC 3.05 L Hgb 9.0 L Hct 26.9 L Lymph % (Auto) 9.3 L [place] % (Auto) Lymph # 0.7 L [place] # Seg Neutrophils % 84.0 H D-Dimer POC ABG pH POC ABG pCO2 POC ABG pO2 Potassium 5.2 H Chloride Carbon Dioxide 17 L BUN 53 H Creatinine 6.7 H Glucose 307 H POC Glucose Lactic Acid Calcium 8.2 L CK-MB (CK-2) CK-MB (CK-2) Rel Index Troponin T Serum Total Protein Albumin 3.6 L Ftgff-9-Holajudis PEP Interpretation Triglycerides Cholesterol LDL Cholesterol Direct Urine WBC (Auto) Urine Creatinine Salicylates < 0.3 L Acetaminophen 09/21/18 09/21/18 09/21/18 22:56 22:56 22:56 RBC Hgb Hct Lymph % (Auto) [place] % (Auto) Lymph # [place] # Seg Neutrophils % D-Dimer 4401.15 H POC ABG pH POC ABG pCO2 POC ABG pO2 Potassium Chloride Carbon Dioxide BUN Creatinine Glucose POC Glucose Lactic Acid 3.70 H* Calcium CK-MB (CK-2) CK-MB (CK-2) Rel Index Troponin T Serum Total Protein Albumin Mcbjw-3-Hlreqfmqx PEP Interpretation Triglycerides Cholesterol LDL Cholesterol Direct Urine WBC (Auto) Urine Creatinine Salicylates Acetaminophen < 5.0 L 09/21/18 09/21/18 09/22/18 23:14 23:57 00:48 RBC Hgb Hct Lymph % (Auto) [place] % (Auto) Lymph # [place] # Seg Neutrophils % D-Dimer POC ABG pH 7.234 L 7.322 L POC ABG pCO2 POC ABG pO2 118 H 142 H Potassium Chloride Carbon Dioxide BUN Creatinine Glucose POC Glucose Lactic Acid Calcium CK-MB (CK-2) CK-MB (CK-2) Rel Index Troponin T 0.062 H D Serum Total Protein Albumin Mqdhd-9-Nyalwexke PEP Interpretation Triglycerides 208 H Cholesterol 206 H LDL Cholesterol Direct 143 H Urine WBC (Auto) Urine Creatinine Salicylates Acetaminophen 09/22/18 09/22/18 09/22/18 04:50 05:03 06:43 RBC Hgb Hct Lymph % (Auto) [place] % (Auto) Lymph # [place] # Seg Neutrophils % D-Dimer POC ABG pH 7.556 H POC ABG pCO2 22.4 L POC ABG pO2 176 H Potassium Chloride Carbon Dioxide BUN Creatinine Glucose POC Glucose 116 H Lactic Acid Calcium CK-MB (CK-2) 4.1 H CK-MB (CK-2) Rel Index 4.7 H Troponin T 0.107 H* D Serum Total Protein Albumin Nqfjd-0-Xxgfqecfl PEP Interpretation Triglycerides Cholesterol LDL Cholesterol Direct Urine WBC (Auto) Urine Creatinine Salicylates Acetaminophen 09/22/18 09/22/18 09/22/18 09:12 10:26 18:00 RBC Hgb Hct Lymph % (Auto) [place] % (Auto) Lymph # [place] # Seg Neutrophils % D-Dimer POC ABG pH POC ABG pCO2 POC ABG pO2 Potassium Chloride Carbon Dioxide BUN Creatinine 6.7 H Glucose POC Glucose 124 H Lactic Acid Calcium CK-MB (CK-2) CK-MB (CK-2) Rel Index Troponin T 0.074 H D Serum Total Protein Albumin Hreos-3-Mcxvnfdnx PEP Interpretation Triglycerides Cholesterol LDL Cholesterol Direct Urine WBC (Auto) Urine Creatinine Salicylates Acetaminophen 09/23/18 09/23/18 09/23/18 03:57 04:24 04:24 RBC 2.85 L Hgb 8.0 L Hct 24.4 L Lymph % (Auto) [place] % (Auto) 12.6 H Lymph # [place] # 1.1 H Seg Neutrophils % D-Dimer POC ABG pH POC ABG pCO2 27.2 L POC ABG pO2 113 H Potassium Chloride 113.4 H Carbon Dioxide 19 L BUN 54 H Creatinine 7.0 H Glucose POC Glucose Lactic Acid Calcium 8.3 L CK-MB (CK-2) CK-MB (CK-2) Rel Index Troponin T Serum Total Protein Albumin Cbfwm-3-Zfsaroumf PEP Interpretation Triglycerides Cholesterol LDL Cholesterol Direct Urine WBC (Auto) Urine Creatinine Salicylates Acetaminophen 09/23/18 09/23/18 09/23/18 05:32 16:00 16:00 RBC Hgb Hct Lymph % (Auto) [place] % (Auto) Lymph # [place] # Seg Neutrophils % D-Dimer POC ABG pH POC ABG pCO2 POC ABG pO2 Potassium Chloride Carbon Dioxide BUN Creatinine Glucose POC Glucose Lactic Acid Calcium CK-MB (CK-2) CK-MB (CK-2) Rel Index Troponin T Serum Total Protein 5.2 L Albumin 2.5 L Qvcha-4-Riwjwrxtf 0.4 H PEP Interpretation see below H Triglycerides Cholesterol LDL Cholesterol Direct Urine WBC (Auto) 13.0 H Urine Creatinine 80.7 H Salicylates Acetaminophen 09/23/18 09/23/18 09/24/18 18:47 23:53 04:28 RBC 2.66 L Hgb 7.6 L Hct 22.5 L Lymph % (Auto) [place] % (Auto) Lymph # [place] # Seg Neutrophils % D-Dimer POC ABG pH POC ABG pCO2 POC ABG pO2 Potassium Chloride Carbon Dioxide BUN Creatinine Glucose POC Glucose 115 H 145 H Lactic Acid Calcium CK-MB (CK-2) CK-MB (CK-2) Rel Index Troponin T Serum Total Protein Albumin Ekjzu-8-Kpdwlkcyz PEP Interpretation Triglycerides Cholesterol LDL Cholesterol Direct Urine WBC (Auto) Urine Creatinine Salicylates Acetaminophen 09/24/18 09/24/18 09/24/18 04:28 04:56 05:33 RBC Hgb Hct Lymph % (Auto) [place] % (Auto) Lymph # [place] # Seg Neutrophils % D-Dimer POC ABG pH 7.551 H POC ABG pCO2 32.0 L POC ABG pO2 133 H Potassium Chloride Carbon Dioxide BUN 27 H Creatinine 4.8 H Glucose 129 H POC Glucose 127 H Lactic Acid Calcium 8.0 L CK-MB (CK-2) CK-MB (CK-2) Rel Index Troponin T Serum Total Protein Albumin Tkbew-3-Tuzesleud PEP Interpretation Triglycerides Cholesterol LDL Cholesterol Direct Urine WBC (Auto) Urine Creatinine Salicylates Acetaminophen 09/24/18 09/24/18 09/24/18 12:39 19:57 23:53 RBC Hgb Hct Lymph % (Auto) [place] % (Auto) Lymph # [place] # Seg Neutrophils % D-Dimer POC ABG pH POC ABG pCO2 POC ABG pO2 Potassium Chloride Carbon Dioxide BUN Creatinine Glucose POC Glucose 171 H 209 H 158 H Lactic Acid Calcium CK-MB (CK-2) CK-MB (CK-2) Rel Index Troponin T Serum Total Protein Albumin Kscja-7-Mdwubdkun PEP Interpretation Triglycerides Cholesterol LDL Cholesterol Direct Urine WBC (Auto) Urine Creatinine Salicylates Acetaminophen 09/25/18 09/25/18 09/25/18 04:06 04:06 05:16 RBC 2.73 L Hgb 7.9 L Hct 23.4 L Lymph % (Auto) [place] % (Auto) Lymph # [place] # Seg Neutrophils % D-Dimer POC ABG pH 7.477 H POC ABG pCO2 POC ABG pO2 122 H Potassium Chloride 97.2 L Carbon Dioxide BUN Creatinine 3.6 H Glucose 118 H POC Glucose Lactic Acid Calcium 8.2 L CK-MB (CK-2) CK-MB (CK-2) Rel Index Troponin T Serum Total Protein Albumin Jycnp-3-Wljmfxtcy PEP Interpretation Triglycerides Cholesterol LDL Cholesterol Direct Urine WBC (Auto) Urine Creatinine Salicylates Acetaminophen 09/25/18 09/25/18 09/25/18 05:55 12:29 16:21 RBC Hgb Hct Lymph % (Auto) [place] % (Auto) Lymph # [place] # Seg Neutrophils % D-Dimer POC ABG pH 7.216 L POC ABG pCO2 79.9 H POC ABG pO2 Potassium Chloride Carbon Dioxide BUN Creatinine Glucose POC Glucose 144 H 128 H Lactic Acid Calcium CK-MB (CK-2) CK-MB (CK-2) Rel Index Troponin T Serum Total Protein Albumin Iratv-0-Sxlhltmrb PEP Interpretation Triglycerides Cholesterol LDL Cholesterol Direct Urine WBC (Auto) Urine Creatinine Salicylates Acetaminophen 09/25/18 09/25/18 09/25/18 18:27 18:44 23:56 RBC Hgb Hct Lymph % (Auto) [place] % (Auto) Lymph # [place] # Seg Neutrophils % D-Dimer POC ABG pH POC ABG pCO2 53.2 H POC ABG pO2 78 L Potassium Chloride Carbon Dioxide BUN Creatinine Glucose POC Glucose 264 H 170 H Lactic Acid Calcium CK-MB (CK-2) CK-MB (CK-2) Rel Index Troponin T Serum Total Protein Albumin Uateu-3-Hujhxoxyl PEP Interpretation Triglycerides Cholesterol LDL Cholesterol Direct Urine WBC (Auto) Urine Creatinine Salicylates Acetaminophen 09/26/18 09/26/18 09/26/18 03:46 04:51 05:04 RBC Hgb Hct Lymph % (Auto) [place] % (Auto) Lymph # [place] # Seg Neutrophils % D-Dimer POC ABG pH 7.584 H POC ABG pCO2 30.9 L POC ABG pO2 151 H Potassium Chloride 95.5 L Carbon Dioxide BUN 34 H Creatinine 5.4 H Glucose 185 H POC Glucose 186 H Lactic Acid Calcium CK-MB (CK-2) CK-MB (CK-2) Rel Index Troponin T Serum Total Protein Albumin Chsrr-5-Uqrxolynu PEP Interpretation Triglycerides Cholesterol LDL Cholesterol Direct Urine WBC (Auto) Urine Creatinine Salicylates Acetaminophen 09/26/18 09/26/18 06:23 12:41 RBC Hgb Hct Lymph % (Auto) [place] % (Auto) Lymph # [place] # Seg Neutrophils % D-Dimer POC ABG pH 7.330 L POC ABG pCO2 49.9 H POC ABG pO2 Potassium Chloride Carbon Dioxide BUN Creatinine Glucose POC Glucose 182 H Lactic Acid Calcium CK-MB (CK-2) CK-MB (CK-2) Rel Index Troponin T Serum Total Protein Albumin Lynlz-4-Zgbajccoy PEP Interpretation Triglycerides Cholesterol LDL Cholesterol Direct Urine WBC (Auto) Urine Creatinine Salicylates Acetaminophen
--- NOTE | 2018-09-26 16:25 | XRay Report ---
FINAL REPORT EXAM: XR CHEST 1V AP HISTORY: respiratory failure TECHNIQUE: Frontal chest radiograph. PRIORS: 09/25/2018. FINDINGS: The endotracheal tube tip projects in the upper thoracic trachea. The enteric tube tip lies off of th e study. The right IJ central venous catheter tip lies in the lower SVC. The cardiomediastinal silhou ette is normal. Mild patchy left lower lobe opacities are seen. No pleural effusion. No pneumothorax. No acute osseous abnormality. IMPRESSION: Left lower lobe atelectasis versus pneumonia.
--- NOTE | 2018-09-26 17:05 | Progress Note ---
Assessment and Plan Assessment and plan: 68 year old woman history of CHF, hypertension, diabetes, chronic kidney disease was brought to the emergency room for shortness of breath. The history is per the son Roshan, he stated he was not at the scene, the patient was at [facility] [employer] when her symptoms started. Patient was intubated in the emergency room, she is sedated, review of system is unobtainable. Nurse reported that the patient had copious amount of vomiting in the ER Acute respiratory failure Sepsis Pneumonia, probably most likely aspiration Abnormal d-dimer, cardiac enzymes Metabolic encephalopathy Hypertension NSTEMI Type 2 -Troponin elevation currently nonspecific in setting of renal insufficiency, respiratory failure, susp Diabetes Chronic kidney disease CHF, stable Plan Continue supportive care in the ICU Neurology eval EEG Continue antibiotics IV Zosyn, follow cultures, hold IV fluid - CHF Status post right IJ Vas-Cath placement on 09/23/2018. -started on HD Echo reviewed - EF 50-55%, mild LVH, LA mildly dilated, mild MR, trace TR, right pleural effusion. Critical care input noted Await doppler lower ext Check finger sticks, initiate insulin sliding scale DVT prophylaxis advised family on the need for the medications for sedation and pain control. Will wean per Pulmonary The high probability of a clinically significant, sudden or life threatening deterioration of the [pulmonary, cardiac, renal] system(s) required my full and direct attention, intervention and personal management. The aggregate critical care time was [35]minutes. This time is in addition to time spent performing reported procedures but includes the following: [x] Data Review and interpretation [x] Patient assessment and monitoring of vital signs [x] Documentation [x] Medication orders and management History Interval history: Patient is examined this morning he remains intubated, agitated With attempt to wean sedation. still on the vent, family at bedside Hospitalist Physical - Physical exam Narrative exam: VITAL SIGNS: Reviewed. GENERAL: The patient appeared agitated moderate respiratory distress currently on mechanical ventilation. What vital signs as documented. HEAD: No signs of head trauma. EYES: Pupils are equal. Extraocular motions intact. EARS: Hearing grossly intact. MOUTH: G-tube in place NECK: No adenopathy, no JVD. CHEST: Chest with clear breath sounds bilaterally. No wheezes, rales, or rhonchi. CARDIAC: Regular rate and rhythm. S1 and S2, without murmurs, gallops, or rubs. VASCULAR: No Edema. Peripheral pulses normal and equal in all extremities. ABDOMEN: Soft, without detectable tenderness. No sign of distention. No re bound or guarding, and no masses palpated. Bowel Sounds normal. MUSCULOSKELETAL: Good range of motion of all major joints. Extremities without clubbing, cyanosis or edema. NEUROLOGIC EXAM: Awake orientation unable to assess at this time. No focal sensory or strength deficits. PSYCHIATRIC: Unable to assess SKIN: No rash or lesions. - Constitutional Vitals: Temp Pulse Resp BP Pulse Ox 98.7 F 89 16 164/51 96 09/26/18 14:04 09/26/18 16:45 09/26/18 16:45 09/26/18 16:45 09/26/18 16:45 General appearance: Present: other (intubated, sedated) Results - Labs CBC & Chem 7: 09/25/18 04:06 09/26/18 04:51 Labs: Laboratory Last Values WBC 8.9 K/mm3 (4.5-11.0) 09/25/18 04:06 RBC 2.73 M/mm3 (3.65-5.03) L 09/25/18 04:06 Hgb 7.9 gm/dl (10.1-14.3) L 09/25/18 04:06 Hct 23.4 % (30.3-42.9) L 09/25/18 04:06 MCV 86 fl (79-97) 09/25/18 04:06 MCH 29 pg (28-32) 09/25/18 04:06 MCHC 34 % (30-34) 09/25/18 04:06 RDW 14.6 % (13.2-15.2) 09/25/18 04:06 Plt Count 173 K/mm3 (140-440) 09/25/18 04:06 Lymph % (Auto) 16.7 % (13.4-35.0) 09/23/18 04:24 [place] % (Auto) 12.6 % (0.0-7.3) H 09/23/18 04:24 Eos % (Auto) 3.5 % (0.0-4.3) 09/23/18 04:24 Baso % (Auto) 1.5 % (0.0-1.8) 09/23/18 04:24 Lymph # 1.4 K/mm3 (1.2-5.4) 09/23/18 04:24 [place] # 1.1 K/mm3 (0.0-0.8) H 09/23/18 04:24 Eos # 0.3 K/mm3 (0.0-0.4) 09/23/18 04:24 Baso # 0.1 K/mm3 (0.0-0.1) 09/23/18 04:24 Seg Neutrophils % 65.7 % (40.0-70.0) 09/23/18 04:24 Seg Neutrophils # 5.5 K/mm3 (1.8-7.7) 09/23/18 04:24 D-Dimer 4401.15 ng/mlDDU (0-234) H 09/21/18 22:56 POC ABG pH 7.330 (7.35-7.45) L 09/26/18 06:23 POC ABG pCO2 49.9 (35-45) H 09/26/18 06:23 POC ABG pO2 81 (80-105) 09/26/18 06:23 POC ABG HCO3 26.3 09/26/18 06:23 POC ABG Total CO2 28 09/26/18 06:23 POC ABG O2 Sat 95 09/26/18 06:23 POC ABG Base Excess 0 09/26/18 06:23 FiO2 35 % 09/26/18 06:23 Sodium 139 mmol/L (137-145) 09/26/18 04:51 Potassium 4.6 mmol/L (3.6-5.0) 09/26/18 04:51 Chloride 95.5 mmol/L (98-107) L 09/26/18 04:51 Carbon Dioxide 22 mmol/L (22-30) 09/26/18 04:51 Anion Gap 26 mmol/L 09/26/18 04:51 BUN 34 mg/dL (7-17) H 09/26/18 04:51 Creatinine 5.4 mg/dL (0.7-1.2) H 09/26/18 04:51 Estimated GFR 10 ml/min 09/26/18 04:51 BUN/Creatinine Ratio 6 % 09/26/18 04:51 Glucose 185 mg/dL (65-100) H 09/26/18 04:51 POC Glucose 182 (70-105) H 09/26/18 12:41 Lactic Acid 1.70 mmol/L (0.7-2.0) 09/22/18 04:50 Calcium 8.6 mg/dL (8.4-10.2) 09/26/18 04:51 Total Bilirubin 0.20 mg/dL (0.1-1.2) 09/21/18 22:56 AST 17 units/L (5-40) 09/21/18 22:56 ALT 9 units/L (7-56) 09/21/18 22:56 Alkaline Phosphatase 86 units/L (35-129) 09/21/18 22:56 Ammonia 57.0 umol/L (25-60) 09/21/18 22:56 Total Creatine Kinase 81 units/L (30-135) 09/22/18 10:26 CK-MB (CK-2) 3.1 ng/mL (0.0-4.0) 09/22/18 10:26 CK-MB (CK-2) Rel Index 3.8 (0-4) 09/22/18 10:26 Troponin T 0.074 ng/mL (0.00-0.029) H D 09/22/18 10:26 Serum Total Protein 5.2 g/dL (6.1-8.1) L 09/23/18 05:32 Total Protein 6.5 g/dL (6.3-8.2) 09/21/18 22:56 Albumin 2.5 g/dL (3.8-4.8) L 09/23/18 05:32 Albumin/Globulin Ratio 1.2 % 09/21/18 22:56 Elfbz-7-Fubaqimku 0.4 g/dL (0.2-0.3) H 09/23/18 05:32 Adzkh-7-Hamhevhxr 0.8 g/dL (0.5-0.9) 09/23/18 05:32 Beta Globulins 0.4 g/dL (0.2-0.5) 09/23/18 05:32 Gamma Globulins 0.9 g/dL (0.8-1.7) 09/23/18 05:32 Abnorm Protein Band 1 see below 09/23/18 05:32 PEP Interpretation see below H 09/23/18 05:32 Triglycerides 208 mg/dL (2-149) H 09/21/18 23:57 Cholesterol 206 mg/dL (50-199) H 09/21/18 23:57 LDL Cholesterol Direct 143 mg/dL (50-130) H 09/21/18 23:57 HDL Cholesterol 40 mg/dL (40-59) 09/21/18 23:57 Cholesterol/HDL Ratio 5.15 % 09/21/18 23:57 Urine Color Yellow (Yellow) 09/23/18 16:00 Urine Turbidity Clear (Clear) 09/23/18 16:00 Urine pH 7.0 (5.0-7.0) 09/23/18 16:00 Ur Specific [place] 1.009 (1.003-1.030) 09/23/18 16:00 Urine Protein >500 mg/dL (Negative) 09/23/18 16:00 Urine Glucose (UA) 50 mg/dL (Negative) 09/23/18 16:00 Urine Ketones Neg mg/dL (Negative) 09/23/18 16:00 Urine Blood Neg (Negative) 09/23/18 16:00 Urine Nitrite Neg (Negative) 09/23/18 16:00 Urine Bilirubin Neg (Negative) 09/23/18 16:00 Urine Urobilinogen < 2.0 mg/dL (<2.0) 09/23/18 16:00 Ur Leukocyte Esterase Sm (Negative) 09/23/18 16:00 Urine WBC (Auto) 13.0 /HPF (0.0-6.0) H 09/23/18 16:00 Urine RBC (Auto) 1.0 /HPF (0.0-6.0) 09/23/18 16:00 U Epithel Cells (Auto) < 1.0 /HPF (0-13.0) 09/23/18 16:00 Urine Bacteria (Auto) 1+ /HPF (Negative) 09/23/18 16:00 Hyaline Casts 3 /LPF 09/23/18 16:00 Urine Mucus Few /HPF 09/23/18 16:00 Urine Eosinophils None seen (None Seen) 09/22/18 16:00 Urine Creatinine 80.7 mg/dL (0.1-20.0) H 09/23/18 16:00 Urine Sodium 66 mmol/L 09/23/18 16:00 Fraction Sodium Excret 3.6 09/23/18 16:00 Salicylates < 0.3 mg/dL (2.8-20.0) L 09/21/18 22:56 Acetaminophen < 5.0 ug/mL (10.0-30.0) L 09/21/18 22:56 Plasma/Serum Alcohol < 0.01 % (0-0.07) 09/21/18 22:56 AGATA Screen Negative (Negative) 09/22/18 18:06 Proteinase 3 (PR3) Ab <1.0 AI (<1.0) 09/22/18 18:06 Myeloperoxidase Ab <1.0 AI (<1.0) 09/22/18 18:06 Double Strand DNA Ab 1 IU/mL (<=4) 09/22/18 18:06 Complement C3 113 mg/dL (83-193) 09/22/18 18:06 Complement C4 57 mg/dL (15-57) 09/22/18 18:06 Hepatitis A IgM Ab Non-reactive (NonReactive) 09/22/18 18:06 Hep Bs Antigen Non-reactive (Negative) 09/22/18 18:06 Hep B Core IgM Ab Non-reactive (NonReactive) 09/22/18 18:06 Hepatitis C Antibody Non-reactive (NonReactive) 09/22/18 18:06 Nutrition/Malnutrition Assess - Dietary Evaluation Nutrition/Malnutrition Findings: Nutrition Notes Start: 09/23/18 13:24 Freq: Status: Active Protocol: Document 09/26/18 11:08 TW (Rec: 09/26/18 11:19 TW [id number]) Co-Sign 09/26/18 11:08 OL Nutrition Notes Initial or Follow up Reassessment Current Diagnosis CKD(stage I-IV) Diabetes Sepsis Hypertension Heart Failure Respiratory Failure Other Pertinent Diagnosis AMS, pneumonia Current Diet TF Labs/Tests BUN 34 Cr 5.4 BG 185 Pertinent Medications Reviewed Height 5 ft 3 in Weight 72.6 kg [place] Body Weight (kg) 52.27 BMI 28.3 Subjective/Other Information F/U for reinserted dobhoff/ TF restart. Per RN, pt is currently in HD. RN reports that TF will restart after HD and tolerance will be monitered. Percent of energy/protein needs met: 0%/0% Burn Absent Trauma Absent Current % PO Negligible #1 Nutrition Diagnosis Inadequate oral intake Diagnosis Progress(for reassessment Continues documentation) Is patient on ventilator? Yes Is Patient Ambulatory and/or Out of Bed No REE-([facility]-confined to bed) 1481.712 Calculation Used for Recommendations [facility] Additional Notes pro 89-148g/day (1.2-2g/kg) fluid 1ml/kcal or per MD order Nutrition Intervention Change Diet Order: Continue TF Nutrition Support: Nepro 1.8 at 35ml/hr Water flush of 150 ml q4h or per MD order Kcal 1,512 Protein (gm) 68 Fluid (mL) 610 Goal #1 TF restart Goal #2 TF tolerance Anticipated Discharge Needs: Unable to determine Follow-Up By: 09/29/18 Additional Comments F/U: TF restart/ tolerance
[2018-09-27] MEDS: HumaLOG SUB-Q SCH ×4 (00:14→18:55)
[2018-09-27] MEDS: ATIVAN IV PRN ×2 (00:15→17:38)
[2018-09-27 05:39] LABS: BUN/Creatinine Ratio TNR; Blood Urea Nitrogen TNR mg/dL (7-17)
[2018-09-27 05:40] LABS: Calcium TNR mg/dL (8.4-10.2); Hemolysis Index THR
[2018-09-27] MEDS: fentaNYL DRIP Premix 2,000 MCG/100 ML BAG IV SCH ×2 (06:40→15:23)
[2018-09-27] MEDS: APRESOLINE IV PRN (06:40)
[2018-09-27 07:53] LABS: Calcium 8.5 mg/dL (8.4-10.2)
[2018-09-27] MEDS: APRESOLINE PO SCH ×3 (08:40→20:03)
--- NOTE | 2018-09-27 09:54 | Progress Note ---
Subjective Principal diagnosis: acute respiratory failure, end-stage renal disease, AMS Interval history: Patient was seen today for follow-up on multiple renal related issues Events of this hospitalization noted Patient is currently dialysis dependent She is being dialyzed 3 times a week Currently intubated multiple family members at bedside past medical history:: Reviewed Allergies: Reviewed Family history: Reviewed Physical examination HEENT: Oral mucosa moist no pallor or icterus orally intubated, Neck: Supple no JVD Chest: Clear to auscultation anteriorly CVS: Regular rate and rhythm S1 and S2 heard Abdomen: Soft nontender no suprapubic masses no organomegaly appreciable Extremity: Dry skin less than 1+ peripheral edema Musculoskeletal: No joint effusion noted in knees and ankle Neurological: Patient is alert Dermatology: No petechial rashes Psychiatry: No evidence of any agitation and aggression noted Assessment and plan Chronic kidney disease currently on maintenance hemodialysis Saturday patient has been felt to be end-stage renal disease currently being dialyzed through a central venous catheter Respiratory failure, pneumonia, fluid overload currently on ventilator Hyperkalemia: Patient is currently doing better with ongoing dialysis that needs to be continued Multiple underlying comorbidities including diabetes hypertension chronic proteinuria, admitted with altered mental status, Continue to monitor dialysis related labs hemodialysis 3 times per week additional treatment if felt to be needed by pulmonary services can be provided Chest x-ray obtained the today shows evidence of left lower lobe atelectasis, Interdisciplinary Notes reviewed Accelerated hypertension: Continue to monitor and adjust medications, we may consider initiation of clonidine Prognosis guarded to poor at this time due to age ultimate goal comorbidities Case was discussed with patient's family at length, discussed about ongoing dialysis All renal related questions were answered More than 35 minutes was spent in direct patient care today in the ICU setting We'll continue to follow and make recommendation from renal standpoint Objective - Vital Signs Vital signs: Vital Signs - 12hr 09/26/18 09/26/18 09/26/18 22:00 22:15 22:30 Temperature Pulse Rate 94 H 81 79 Respiratory 17 16 16 Rate Blood Pressure 184/57 167/56 168/56 O2 Sat by Pulse 100 96 98 Oximetry 09/26/18 09/26/18 09/26/18 22:46 23:00 23:14 Temperature Pulse Rate 80 83 104 H Respiratory 16 16 14 Rate Blood Pressure 168/56 168/56 168/56 O2 Sat by Pulse 100 98 100 Oximetry 09/26/18 09/26/18 09/26/18 23:15 23:30 23:39 Temperature 99.6 F Pulse Rate 87 85 107 H Respiratory 17 16 15 Rate Blood Pressure 178/57 180/60 180/60 O2 Sat by Pulse 99 99 100 Oximetry 09/26/18 09/27/18 09/27/18 23:45 00:00 00:15 Temperature Pulse Rate 94 H 90 95 H Respiratory 16 16 16 Rate Blood Pressure 184/61 167/55 175/82 O2 Sat by Pulse 98 100 98 Oximetry 09/27/18 09/27/18 09/27/18 00:17 00:30 00:46 Temperature Pulse Rate 82 80 83 Respiratory 16 16 Rate Blood Pressure 175/82 167/55 128/46 O2 Sat by Pulse 100 97 94 Oximetry 09/27/18 09/27/18 09/27/18 01:00 01:15 01:30 Temperature Pulse Rate 81 77 74 Respiratory 15 16 16 Rate Blood Pressure 131/51 116/46 116/46 O2 Sat by Pulse 94 95 100 Oximetry 09/27/18 09/27/18 09/27/18 01:45 02:00 02:15 Temperature Pulse Rate 73 75 75 Respiratory 16 16 16 Rate Blood Pressure 127/49 122/46 123/48 O2 Sat by Pulse 96 97 97 Oximetry 09/27/18 09/27/18 09/27/18 02:30 02:46 03:00 Temperature Pulse Rate 68 79 81 Respiratory 15 16 17 Rate Blood Pressure 127/47 181/59 181/59 O2 Sat by Pulse 97 100 100 Oximetry 09/27/18 09/27/18 09/27/18 03:14 03:15 03:16 Temperature 99.4 F Pulse Rate 85 82 Respiratory 18 16 Rate Blood Pressure 185/62 O2 Sat by Pulse 100 98 Oximetry 09/27/18 09/27/18 09/27/18 03:30 03:45 04:00 Temperature Pulse Rate 93 H 85 109 H Respiratory 16 16 17 Rate Blood Pressure 178/68 180/53 181/52 O2 Sat by Pulse 98 99 100 Oximetry 09/27/18 09/27/18 09/27/18 04:16 04:30 04:45 Temperature Pulse Rate 83 87 83 Respiratory 16 15 16 Rate Blood Pressure 175/50 175/50 173/45 O2 Sat by Pulse 99 99 98 Oximetry 0209/27/18 09/27/18 05:00 05:16 05:30 Temperature Pulse Rate 80 84 100 H Respiratory 17 16 21 Rate Blood Pressure 173/45 163/57 163/57 O2 Sat by Pulse 100 99 100 Oximetry 09/27/18 09/27/18 09/27/18 05:36 05:46 06:00 Temperature Pulse Rate 81 126 H 78 Respiratory 17 16 Rate Blood Pressure 163/57 123/97 168/59 O2 Sat by Pulse 100 99 98 Oximetry 09/27/18 09/27/18 09/27/18 06:16 06:30 06:40 Temperature Pulse Rate 74 75 75 Respiratory 16 16 Rate Blood Pressure 185/55 185/55 180/55 O2 Sat by Pulse 99 100 Oximetry 09/27/18 09/27/18 09/27/18 06:46 07:00 07:15 Temperature Pulse Rate 72 79 80 Respiratory 16 16 16 Rate Blood Pressure 150/52 128/47 131/47 O2 Sat by Pulse 99 100 99 Oximetry 09/27/18 09/27/18 09/27/18 07:30 07:45 08:00 Temperature 100.0 F H Pulse Rate 92 H 83 82 Respiratory 16 16 16 Rate Blood Pressure 141/56 154/48 148/52 O2 Sat by Pulse 99 98 98 Oximetry 09/27/18 09/27/18 09/27/18 08:15 08:30 08:45 Temperature Pulse Rate 83 91 H 86 Respiratory 16 15 16 Rate Blood Pressure 129/54 129/54 152/53 O2 Sat by Pulse 98 100 100 Oximetry 09/27/18 09/27/18 09/27/18 09:00 09:15 09:30 Temperature Pulse Rate 87 85 82 Respiratory 16 16 16 Rate Blood Pressure 152/53 150/54 160/49 O2 Sat by Pulse 100 99 99 Oximetry - Lab 09/25/18 04:06 09/28/18 04:39 Most recent lab results Calcium 8.5 mg/dL (8.4-10.2) 09/27/18 06:05 Urine Creatinine 80.7 mg/dL (0.1-20.0) H 09/23/18 16:00 Urine Sodium 66 mmol/L 09/23/18 16:00 Medications & Allergies - Medications Allergies/Adverse Reactions: Allergies codeine Adverse Reaction (Verified 09/23/18 10:09) Unknown Home Medications: Home Medications Medication Instructions Recorded Confirmed Last Taken Type ALBUTEROL NEB's [Proventil 0.083% 2.5 mg INHALATION Q6H PRN 09/25/18 09/25/18 Unknown History NEBS] Carvedilol 25 mg PO Q12H 09/25/18 09/25/18 Unknown History Clonidine 0.2 mg PO BID 09/25/18 09/25/18 Unknown History Doxazosin 2 mg PO DAILY 09/25/18 09/25/18 Unknown History Dss 100 mg PO BID 09/25/18 09/25/18 Unknown History Fluticasone [Flonase] 1 spray INNOSTRIL DAILY 09/25/18 09/25/18 Unknown History Insulin NPH/Regular [Novolin 70/30] 20 unit SQ DAILY 09/25/18 09/25/18 Unknown History Isosorbide Mononitrate 30 mg PO DAILY 09/25/18 09/25/18 Unknown History NIFEdipine [Nifedipine ER] 60 mg PO BID 09/25/18 09/25/18 Unknown History Sevelamer Carbonate 1 tab PO TID 09/25/18 09/25/18 Unknown History Simvastatin [Zocor] 1 tab PO DAILY 09/25/18 09/25/18 Unknown History Torsemide [Demadex] 0.5 tab PO DAILY 09/25/18 09/25/18 Unknown History hydrALAZINE 100 mg PO Q8H 09/25/18 09/25/18 Unknown History Active Medications: Generic Name Dose Route Start Last Admin Trade Name Freq PRN Reason Stop Dose Admin Acetaminophen 650 mg 09/22/18 04:14 09/26/18 03:56 Tylenol PO 650 mg Q4H PRN Administration Pain MILD(1-3)/Fever >100.5/MEJIA Lipase/Protease/Amylase 1 each 09/23/18 13:[address] 10,500 Unit FEEDTUBE PRN PRN For Clogged Feeding Tube Dextrose 50 ml 09/22/18 04:14 D50w (25gm) Syringe IV PRN PRN Hypoglycemia Enoxaparin Sodium 30 mg 09/22/18 10:00 09/26/18 10:21 Lovenox SUB-Q 30 mg QDAY KAILA Administration Epinephrine 0.5 ml 09/25/18 12:52 S2 Racepinephrine 2.25% IH Q4HRT PRN stridor Famotidine 20 mg 09/22/18 10:00 09/26/18 10:21 Pepcid IV 20 mg DAILY KAILA Administration Haloperidol Lactate 5 mg 09/25/18 14:29 09/26/18 04:45 Haldol IM 5 mg Q6H PRN Administration Agitation Hydralazine HCl 10 mg 09/22/18 19:30 09/27/18 06:40 Apresoline IV 10 mg Q4HR PRN Administration SBP>160 Hydralazine HCl 100 mg 09/26/18 14:00 09/27/18 08:40 Apresoline PO 100 mg TID KAILA Administration Fentanyl Citrate 2,000 mcg in 100 mls @ 3.7 mls/hr 09/22/18 02:00 09/27/18 06:40 Fentanyl Drip Premix IV 4 mcg/kg/hr TITR KAILA 14.8 mls/hr Administration Protocol 1 MCG/KG/HR Propofol 1,000 mg in 100 mls @ 2.22 mls/hr 09/22/18 11:00 09/23/18 17:42 Diprivan 10 Mg/Ml IV 0 mcg/kg/min TITR KAILA 0 mls/hr Titration Protocol 5 MCG/KG/MIN Sodium Chloride 100 mls @ 999 mls/hr 09/23/18 08:40 Nacl 0.9% IV CAROLINE PRN Hypotension Sodium Chloride 100 mls @ 999 mls/hr 09/24/18 12:26 Nacl 0.9% IV CAROLINE PRN Hypotension Sodium Chloride 100 mls @ 999 mls/hr 09/25/18 09:59 Nacl 0.9% IV CAROLINE PRN Hypotension Insulin Human Lispro 0 unit 09/22/18 06:00 09/27/18 05:30 Humalog SUB-Q Not Given Q6HR [facility] Protocol Labetalol HCl 100 mg 09/24/18 22:00 09/26/18 21:33 Normodyne PO 100 mg BID KAILA Administration Lorazepam 1 mg 09/23/18 10:06 09/27/18 00:15 Ativan IV 1 mg Q4H PRN Administration Agitation Simple Syrup 15 ml 09/23/18 13:57 Simple Syrup FEEDTUBE PRN PRN Hypoglycemia Simple Syrup 30 ml 09/23/18 13:57 Simple Syrup FEEDTUBE PRN PRN Hypoglycemia Sodium Bicarbonate 325 mg 09/23/18 13:57 Sodium Bicarbonate FEEDTUBE PRN PRN For Clogged Feeding Tube Sodium Chloride 10 ml 09/22/18 10:00 09/26/18 21:27 Sodium Chloride Flush Syringe 10 Ml IV 10 ml BID KAILA Administration Sodium Chloride 10 ml 09/22/18 04:14 Sodium Chloride Flush Syringe 10 Ml IV PRN PRN LINE FLUSH
[2018-09-27] MEDS: PEPCID IV SCH (10:27)
[2018-09-27] MEDS: NORMODYNE PO SCH (10:27)
[2018-09-27] MEDS: LOVENOX SUB-Q SCH (10:28)
[2018-09-27] MEDS: SODIUM CHLORIDE FLUSH SYRINGE 10 ML IV SCH ×2 (10:31→22:00)
--- NOTE | 2018-09-27 10:39 | Progress Note ---
Assessment and Plan 68 y/o female with acute respiratory failure and ESRD. 1. Stop sedation and attempt SBT 2. Most likely temp is from atelectasis as oppose to pneumonia. WC not checked today 3. HD per renal, appears to be MWF 4. Will plan to extubate, hopefully in the next 48-72 hours CCT 31 minutes. Subjective Date of service: 09/27/18 Principal diagnosis: acute respiratory failure, end-stage renal disease, AMS Interval history: Patient with low grade temp overnight post HD. CXR shows atelectasis vs infiltrate in left lower lobe. Has cardiomegaly so difficult to see clearly. ABG this am is excellent but on on 4 of Fentanyl. Up from 2 on yesterday. Objective Vital Signs - 12hr 09/26/18 09/26/18 09/26/18 22:46 23:00 23:14 Temperature Pulse Rate 80 83 104 H Respiratory 16 16 14 Rate Blood Pressure 168/56 168/56 168/56 O2 Sat by Pulse 100 98 100 Oximetry 09/26/18 09/26/18 09/26/18 23:15 23:30 23:39 Temperature 99.6 F Pulse Rate 87 85 107 H Respiratory 17 16 15 Rate Blood Pressure 178/57 180/60 180/60 O2 Sat by Pulse 99 99 100 Oximetry 09/26/18 09/27/18 09/27/18 23:45 00:00 00:15 Temperature Pulse Rate 94 H 90 95 H Respiratory 16 16 16 Rate Blood Pressure 184/61 167/55 175/82 O2 Sat by Pulse 98 100 98 Oximetry 09/27/18 09/27/18 09/27/18 00:17 00:30 00:46 Temperature Pulse Rate 82 80 83 Respiratory 16 16 Rate Blood Pressure 175/82 167/55 128/46 O2 Sat by Pulse 100 97 94 Oximetry 09/27/18 09/27/18 09/27/18 01:00 01:15 01:30 Temperature Pulse Rate 81 77 74 Respiratory 15 16 16 Rate Blood Pressure 131/51 116/46 116/46 O2 Sat by Pulse 94 95 100 Oximetry 09/27/18 09/27/18 09/27/18 01:45 02:00 02:15 Temperature Pulse Rate 73 75 75 Respiratory 16 16 16 Rate Blood Pressure 127/49 122/46 123/48 O2 Sat by Pulse 96 97 97 Oximetry 09/27/18 09/27/18 09/27/18 02:30 02:46 03:00 Temperature Pulse Rate 68 79 81 Respiratory 15 16 17 Rate Blood Pressure 127/47 181/59 181/59 O2 Sat by Pulse 97 100 100 Oximetry 09/27/18 09/27/18 09/27/18 03:14 03:15 03:16 Temperature 99.4 F Pulse Rate 85 82 Respiratory 18 16 Rate Blood Pressure 185/62 O2 Sat by Pulse 100 98 Oximetry 09/27/18 09/27/18 09/27/18 03:30 03:45 04:00 Temperature Pulse Rate 93 H 85 109 H Respiratory 16 16 17 Rate Blood Pressure 178/68 180/53 181/52 O2 Sat by Pulse 98 99 100 Oximetry 09/27/18 09/27/18 09/27/18 04:16 04:30 04:45 Temperature Pulse Rate 83 87 83 Respiratory 16 15 16 Rate Blood Pressure 175/50 175/50 173/45 O2 Sat by Pulse 99 99 98 Oximetry 09/27/18 09/27/18 09/27/18 05:00 05:16 05:30 Temperature Pulse Rate 80 84 100 H Respiratory 17 16 21 Rate Blood Pressure 173/45 163/57 163/57 O2 Sat by Pulse 100 99 100 Oximetry 09/27/18 09/27/18 09/27/18 05:36 05:46 06:00 Temperature Pulse Rate 81 126 H 78 Respiratory 17 16 Rate Blood Pressure 163/57 123/97 168/59 O2 Sat by Pulse 100 99 98 Oximetry 09/27/18 09/27/18 09/27/18 06:16 06:30 06:40 Temperature Pulse Rate 74 75 75 Respiratory 16 16 Rate Blood Pressure 185/55 185/55 180/55 O2 Sat by Pulse 99 100 Oximetry 09/27/18 09/27/18 09/27/18 06:46 07:00 07:15 Temperature Pulse Rate 72 79 80 Respiratory 16 16 16 Rate Blood Pressure 150/52 128/47 131/47 O2 Sat by Pulse 99 100 99 Oximetry 09/27/18 09/27/18 09/27/18 07:30 07:45 08:00 Temperature 100.0 F H Pulse Rate 92 H 83 82 Respiratory 16 16 16 Rate Blood Pressure 141/56 154/48 148/52 O2 Sat by Pulse 99 98 98 Oximetry 09/27/18 09/27/18 09/27/18 08:15 08:30 08:45 Temperature Pulse Rate 83 91 H 86 Respiratory 16 15 16 Rate Blood Pressure 129/54 129/54 152/53 O2 Sat by Pulse 98 100 100 Oximetry 09/27/18 09/27/18 09/27/18 09:00 09:15 09:30 Temperature Pulse Rate 87 85 82 Respiratory 16 16 16 Rate Blood Pressure 152/53 150/54 160/49 O2 Sat by Pulse 100 99 99 Oximetry 09/27/18 09/27/18 09/27/18 09:46 10:00 10:27 Temperature Pulse Rate 95 H 85 90 Respiratory 16 15 Rate Blood Pressure 163/47 163/47 142/50 O2 Sat by Pulse 99 100 Oximetry Constitutional: no acute distress, other (orally intubated and sedated, but awake, nods appropriately and follows commands) Eyes: non-icteric ENT: oropharynx moist, other (orally intubated) Effort: normal Ascultation: Bilateral: clear, diminished breath sounds Cardiovascular: regular rate and rhythm Gastrointestinal: normoactive bowel sounds, non-distended Integumentary: normal Extremities: no cyanosis, no edema Neurologic: other (RASS -1) CBC and BMP: 09/25/18 04:06 09/27/18 06:05 ABG, PT/INR, D-dimer: ABG POC ABG pH 7.397 (7.35-7.45) 09/27/18 05:36 POC ABG pCO2 44.9 (35-45) 09/27/18 05:36 POC ABG pO2 136 (80-105) H 09/27/18 05:36 POC ABG HCO3 27.6 09/27/18 05:36 POC ABG Total CO2 29 09/27/18 05:36 POC ABG O2 Sat 99 09/27/18 05:36 PT/INR, D-dimer D-Dimer 4401.15 ng/mlDDU (0-234) H 09/21/18 22:56 Abnormal lab findings: Abnormal Labs 09/21/18 09/21/18 09/21/18 22:56 22:56 22:56 RBC 3.05 L Hgb 9.0 L Hct 26.9 L Lymph % (Auto) 9.3 L [place] % (Auto) Lymph # 0.7 L [place] # Seg Neutrophils % 84.0 H D-Dimer POC ABG pH POC ABG pCO2 POC ABG pO2 Potassium 5.2 H Chloride Carbon Dioxide 17 L BUN 53 H Creatinine 6.7 H Glucose 307 H POC Glucose Lactic Acid Calcium 8.2 L CK-MB (CK-2) CK-MB (CK-2) Rel Index Troponin T Serum Total Protein Albumin 3.6 L Zjatr-1-[place] PEP Interpretation Triglycerides Cholesterol LDL Cholesterol Direct Urine WBC (Auto) Urine Creatinine Salicylates < 0.3 L Acetaminophen 09/21/18 09/21/18 09/21/18 22:56 22:56 22:56 RBC Hgb Hct Lymph % (Auto) [place] % (Auto) Lymph # [place] # Seg Neutrophils % D-Dimer 4401.15 H POC ABG pH POC ABG pCO2 POC ABG pO2 Potassium Chloride Carbon Dioxide BUN Creatinine Glucose POC Glucose Lactic Acid 3.70 H* Calcium CK-MB (CK-2) CK-MB (CK-2) Rel Index Troponin T Serum Total Protein Albumin Yeknr-4-Rossidjlc PEP Interpretation Triglycerides Cholesterol LDL Cholesterol Direct Urine WBC (Auto) Urine Creatinine Salicylates Acetaminophen < 5.0 L 09/21/18 09/21/18 09/22/18 23:14 23:57 00:48 RBC Hgb Hct Lymph % (Auto) [place] % (Auto) Lymph # [place] # Seg Neutrophils % D-Dimer POC ABG pH 7.234 L 7.322 L POC ABG pCO2 POC ABG pO2 118 H 142 H Potassium Chloride Carbon Dioxide BUN Creatinine Glucose POC Glucose Lactic Acid Calcium CK-MB (CK-2) CK-MB (CK-2) Rel Index Troponin T 0.062 H D Serum Total Protein Albumin Sjzvr-4-Aitfzqqxz PEP Interpretation Triglycerides 208 H Cholesterol 206 H LDL Cholesterol Direct 143 H Urine WBC (Auto) Urine Creatinine Salicylates Acetaminophen 09/22/18 09/22/18 09/22/18 04:50 05:03 06:43 RBC Hgb Hct Lymph % (Auto) [place] % (Auto) Lymph # [place] # Seg Neutrophils % D-Dimer POC ABG pH 7.556 H POC ABG pCO2 22.4 L POC ABG pO2 176 H Potassium Chloride Carbon Dioxide BUN Creatinine Glucose POC Glucose 116 H Lactic Acid Calcium CK-MB (CK-2) 4.1 H CK-MB (CK-2) Rel Index 4.7 H Troponin T 0.107 H* D Serum Total Protein Albumin Vjnbf-9-Vjdhhlsis PEP Interpretation Triglycerides Cholesterol LDL Cholesterol Direct Urine WBC (Auto) Urine Creatinine Salicylates Acetaminophen 09/22/18 09/22/18 09/22/18 09:12 10:26 18:00 RBC Hgb Hct Lymph % (Auto) [place] % (Auto) Lymph # [place] # Seg Neutrophils % D-Dimer POC ABG pH POC ABG pCO2 POC ABG pO2 Potassium Chloride Carbon Dioxide BUN Creatinine 6.7 H Glucose POC Glucose 124 H Lactic Acid Calcium CK-MB (CK-2) CK-MB (CK-2) Rel Index Troponin T 0.074 H D Serum Total Protein Albumin Ddpsh-4-Kwwvlengs PEP Interpretation Triglycerides Cholesterol LDL Cholesterol Direct Urine WBC (Auto) Urine Creatinine Salicylates Acetaminophen 09/23/18 09/23/18 09/23/18 03:57 04:24 04:24 RBC 2.85 L Hgb 8.0 L Hct 24.4 L Lymph % (Auto) [place] % (Auto) 12.6 H Lymph # [place] # 1.1 H Seg Neutrophils % D-Dimer POC ABG pH POC ABG pCO2 27.2 L POC ABG pO2 113 H Potassium Chloride 113.4 H Carbon Dioxide 19 L BUN 54 H Creatinine 7.0 H Glucose POC Glucose Lactic Acid Calcium 8.3 L CK-MB (CK-2) CK-MB (CK-2) Rel Index Troponin T Serum Total Protein Albumin Tkgvj-6-Hxapdwrnq PEP Interpretation Triglycerides Cholesterol LDL Cholesterol Direct Urine WBC (Auto) Urine Creatinine Salicylates Acetaminophen 09/23/18 09/23/18 09/23/18 05:32 16:00 16:00 RBC Hgb Hct Lymph % (Auto) [place] % (Auto) Lymph # [place] # Seg Neutrophils % D-Dimer POC ABG pH POC ABG pCO2 POC ABG pO2 Potassium Chloride Carbon Dioxide BUN Creatinine Glucose POC Glucose Lactic Acid Calcium CK-MB (CK-2) CK-MB (CK-2) Rel Index Troponin T Serum Total Protein 5.2 L Albumin 2.5 L Kmiqo-4-Hvhqpdamn 0.4 H PEP Interpretation see below H Triglycerides Cholesterol LDL Cholesterol Direct Urine WBC (Auto) 13.0 H Urine Creatinine 80.7 H Salicylates Acetaminophen 09/23/18 09/23/18 09/24/18 18:47 23:53 04:28 RBC 2.66 L Hgb 7.6 L Hct 22.5 L Lymph % (Auto) [place] % (Auto) Lymph # [place] # Seg Neutrophils % D-Dimer POC ABG pH POC ABG pCO2 POC ABG pO2 Potassium Chloride Carbon Dioxide BUN Creatinine Glucose POC Glucose 115 H 145 H Lactic Acid Calcium CK-MB (CK-2) CK-MB (CK-2) Rel Index Troponin T Serum Total Protein Albumin Kyxqn-5-Zydgsaswm PEP Interpretation Triglycerides Cholesterol LDL Cholesterol Direct Urine WBC (Auto) Urine Creatinine Salicylates Acetaminophen 09/24/18 09/24/18 09/24/18 04:28 04:56 05:33 RBC Hgb Hct Lymph % (Auto) [place] % (Auto) Lymph # [place] # Seg Neutrophils % D-Dimer POC ABG pH 7.551 H POC ABG pCO2 32.0 L POC ABG pO2 133 H Potassium Chloride Carbon Dioxide BUN 27 H Creatinine 4.8 H Glucose 129 H POC Glucose 127 H Lactic Acid Calcium 8.0 L CK-MB (CK-2) CK-MB (CK-2) Rel Index Troponin T Serum Total Protein Albumin Owlzw-6-Jfyqfyvxf PEP Interpretation Triglycerides Cholesterol LDL Cholesterol Direct Urine WBC (Auto) Urine Creatinine Salicylates Acetaminophen 09/24/18 09/24/18 09/24/18 12:39 19:57 23:53 RBC Hgb Hct Lymph % (Auto) [place] % (Auto) Lymph # [place] # Seg Neutrophils % D-Dimer POC ABG pH POC ABG pCO2 POC ABG pO2 Potassium Chloride Carbon Dioxide BUN Creatinine Glucose POC Glucose 171 H 209 H 158 H Lactic Acid Calcium CK-MB (CK-2) CK-MB (CK-2) Rel Index Troponin T Serum Total Protein Albumin Wplgy-4-Sfbmnrmub PEP Interpretation Triglycerides Cholesterol LDL Cholesterol Direct Urine WBC (Auto) Urine Creatinine Salicylates Acetaminophen 09/25/18 09/25/18 09/25/18 04:06 04:06 05:16 RBC 2.73 L Hgb 7.9 L Hct 23.4 L Lymph % (Auto) [place] % (Auto) Lymph # [place] # Seg Neutrophils % D-Dimer POC ABG pH 7.477 H POC ABG pCO2 POC ABG pO2 122 H Potassium Chloride 97.2 L Carbon Dioxide BUN Creatinine 3.6 H Glucose 118 H POC Glucose Lactic Acid Calcium 8.2 L CK-MB (CK-2) CK-MB (CK-2) Rel Index Troponin T Serum Total Protein Albumin Cqyai-6-Aebxnxqjk PEP Interpretation Triglycerides Cholesterol LDL Cholesterol Direct Urine WBC (Auto) Urine Creatinine Salicylates Acetaminophen 09/25/18 09/25/18 09/25/18 05:55 12:29 16:21 RBC Hgb Hct Lymph % (Auto) [place] % (Auto) Lymph # [place] # Seg Neutrophils % D-Dimer POC ABG pH 7.216 L POC ABG pCO2 79.9 H POC ABG pO2 Potassium Chloride Carbon Dioxide BUN Creatinine Glucose POC Glucose 144 H 128 H Lactic Acid Calcium CK-MB (CK-2) CK-MB (CK-2) Rel Index Troponin T Serum Total Protein Albumin Rjzqk-1-Jrggsspmv PEP Interpretation Triglycerides Cholesterol LDL Cholesterol Direct Urine WBC (Auto) Urine Creatinine Salicylates Acetaminophen 09/25/18 09/25/18 09/25/18 18:27 18:44 23:56 RBC Hgb Hct Lymph % (Auto) [place] % (Auto) Lymph # [place] # Seg Neutrophils % D-Dimer POC ABG pH POC ABG pCO2 53.2 H POC ABG pO2 78 L Potassium Chloride Carbon Dioxide BUN Creatinine Glucose POC Glucose 264 H 170 H Lactic Acid Calcium CK-MB (CK-2) CK-MB (CK-2) Rel Index Troponin T Serum Total Protein Albumin Rhtrf-8-Ingnzxpvj PEP Interpretation Triglycerides Cholesterol LDL Cholesterol Direct Urine WBC (Auto) Urine Creatinine Salicylates Acetaminophen 09/26/18 09/26/18 09/26/18 03:46 04:51 05:04 RBC Hgb Hct Lymph % (Auto) [place] % (Auto) Lymph # [place] # Seg Neutrophils % D-Dimer POC ABG pH 7.584 H POC ABG pCO2 30.9 L POC ABG pO2 151 H Potassium Chloride 95.5 L Carbon Dioxide BUN 34 H Creatinine 5.4 H Glucose 185 H POC Glucose 186 H Lactic Acid Calcium CK-MB (CK-2) CK-MB (CK-2) Rel Index Troponin T Serum Total Protein Albumin Fraha-2-Orqumqswn PEP Interpretation Triglycerides Cholesterol LDL Cholesterol Direct Urine WBC (Auto) Urine Creatinine Salicylates Acetaminophen 09/26/18 09/26/18 09/26/18 06:23 12:41 17:55 RBC Hgb Hct Lymph % (Auto) [place] % (Auto) Lymph # [place] # Seg Neutrophils % D-Dimer POC ABG pH 7.330 L POC ABG pCO2 49.9 H POC ABG pO2 Potassium Chloride Carbon Dioxide BUN Creatinine Glucose POC Glucose 182 H 171 H Lactic Acid Calcium CK-MB (CK-2) CK-MB (CK-2) Rel Index Troponin T Serum Total Protein Albumin Uizxm-1-Nstvkxqro PEP Interpretation Triglycerides Cholesterol LDL Cholesterol Direct Urine WBC (Auto) Urine Creatinine Salicylates Acetaminophen 09/27/18 09/27/18 09/27/18 00:06 05:11 05:36 RBC Hgb Hct Lymph % (Auto) [place] % (Auto) Lymph # [place] # Seg Neutrophils % D-Dimer POC ABG pH POC ABG pCO2 POC ABG pO2 136 H Potassium Chloride Carbon Dioxide BUN Creatinine Glucose POC Glucose 170 H 115 H Lactic Acid Calcium CK-MB (CK-2) CK-MB (CK-2) Rel Index Troponin T Serum Total Protein Albumin Ydwjr-2-Eulqmeuzn PEP Interpretation Triglycerides Cholesterol LDL Cholesterol Direct Urine WBC (Auto) Urine Creatinine Salicylates Acetaminophen 09/27/18 06:05 RBC Hgb Hct Lymph % (Auto) [place] % (Auto) Lymph # [place] # Seg Neutrophils % D-Dimer POC ABG pH POC ABG pCO2 POC ABG pO2 Potassium Chloride 95.0 L Carbon Dioxide BUN 39 H Creatinine 5.1 H Glucose 145 H POC Glucose Lactic Acid Calcium CK-MB (CK-2) CK-MB (CK-2) Rel Index Troponin T Serum Total Protein Albumin Gxdxf-6-Cnwwgbvuv PEP Interpretation Triglycerides Cholesterol LDL Cholesterol Direct Urine WBC (Auto) Urine Creatinine Salicylates Acetaminophen
--- NOTE | 2018-09-27 12:30 | Progress Note ---
Assessment and Plan respiratory failure on vent nstemi type 2 htn chol esrd oh hd rec: increase labetalol for better BP control restart imdur, vent as per pul monary Subjective Date of service: 09/27/18 Principal diagnosis: acute respiratory failure, end-stage renal disease, AMS Interval history: on vent Objective Vital Signs Temp Pulse Resp BP Pulse Ox Pulse Ox 09/27/18 10:27 90 142/50 09/27/18 10:00 76 15 137/49 100 09/27/18 09:46 95 H 16 163/47 99 09/27/18 09:30 82 16 160/49 99 09/27/18 09:15 85 16 150/54 99 09/27/18 09:00 87 16 152/53 100 09/27/18 08:45 86 16 152/53 100 09/27/18 08:30 91 H 15 129/54 100 09/27/18 08:15 83 16 129/54 98 09/27/18 08:00 100.0 F H 82 16 148/52 98 09/27/18 07:45 83 16 154/48 98 09/27/18 07:30 92 H 16 141/56 99 09/27/18 07:15 80 16 131/47 99 09/27/18 07:00 79 16 128/47 100 09/27/18 06:46 72 16 150/52 99 09/27/18 06:40 75 180/55 09/27/18 06:30 75 16 185/55 100 09/27/18 06:16 74 16 185/55 99 09/27/18 06:00 78 16 168/59 98 09/27/18 05:46 126 H 17 123/97 99 09/27/18 05:36 81 163/57 100 09/27/18 05:30 100 H 21 163/57 100 09/27/18 05:16 84 16 163/57 99 09/27/18 05:00 80 17 173/45 100 09/27/18 04:45 83 16 173/45 98 09/27/18 04:30 87 15 175/50 99 09/27/18 04:16 83 16 175/50 99 09/27/18 04:00 109 H 17 181/52 100 09/27/18 03:45 85 16 180/53 99 09/27/18 03:30 93 H 16 178/68 98 09/27/18 03:16 82 16 185/62 98 09/27/18 03:15 85 18 100 09/27/18 03:14 99.4 F 09/27/18 03:00 81 17 181/59 100 09/27/18 02:46 79 16 181/59 100 09/27/18 02:30 68 15 127/47 97 09/27/18 02:15 75 16 123/48 97 09/27/18 02:00 75 16 122/46 97 09/27/18 01:45 73 16 127/49 96 09/27/18 01:30 74 16 116/46 100 09/27/18 01:15 77 16 116/46 95 09/27/18 01:00 81 15 131/51 94 09/27/18 00:46 83 16 128/46 94 09/27/18 00:30 80 16 167/55 97 09/27/18 00:17 82 175/82 100 09/27/18 00:15 95 H 16 175/82 98 09/27/18 00:00 90 16 167/55 100 09/26/18 23:45 94 H 16 184/61 98 09/26/18 23:39 107 H 15 180/60 100 09/26/18 23:30 99.6 F 85 16 180/60 99 09/26/18 23:15 87 17 178/57 99 09/26/18 23:14 104 H 14 168/56 100 09/26/18 23:00 83 16 168/56 98 09/26/18 22:46 80 16 168/56 100 09/26/18 22:30 79 16 168/56 98 09/26/18 22:15 81 16 167/56 96 09/26/18 22:00 94 H 17 184/57 100 09/26/18 21:45 82 16 184/57 98 09/26/18 21:33 85 176/52 09/26/18 21:30 112 H 15 189/60 100 09/26/18 21:25 18 100 09/26/18 21:16 84 16 176/52 97 09/26/18 21:00 114 H 17 189/60 99 09/26/18 20:56 87 184/59 99 09/26/18 20:54 100 09/26/18 20:45 89 16 184/59 97 09/26/18 20:30 96 H 17 184/62 97 09/26/18 20:15 90 16 199/61 97 09/26/18 20:00 101 H 17 173/77 100 09/26/18 19:45 96 H 19 173/77 98 09/26/18 19:37 100.7 F H 09/26/18 19:30 95 H 15 178/62 98 09/26/18 19:15 82 16 169/53 97 09/26/18 19:01 82 16 169/53 97 09/26/18 18:45 85 16 172/51 97 09/26/18 18:30 83 16 182/54 96 09/26/18 18:15 85 16 177/52 98 09/26/18 18:00 85 16 168/52 96 09/26/18 17:45 95 H 20 182/55 100 09/26/18 17:31 88 16 173/49 99 09/26/18 17:15 99 H 17 172/49 100 09/26/18 17:01 82 17 166/51 96 09/26/18 16:45 89 16 164/51 96 09/26/18 16:31 91 H 16 182/58 96 09/26/18 16:25 89 164/51 96 09/26/18 16:15 90 22 173/53 99 09/26/18 16:00 87 16 176/53 100 09/26/18 15:45 88 17 162/58 96 09/26/18 15:31 89 16 199/56 99 09/26/18 15:15 82 19 193/64 100 09/26/18 15:00 74 22 179/51 98 09/26/18 14:45 111 H 21 126/42 100 09/26/18 14:30 69 15 126/42 97 09/26/18 14:15 74 16 135/44 97 09/26/18 14:04 98.7 F 78 15 128/42 97 09/26/18 14:00 78 16 128/42 99 09/26/18 13:45 88 16 112/45 99 09/26/18 13:31 89 16 126/46 99 09/26/18 13:30 91 H 126/46 09/26/18 13:15 93 H 16 162/51 99 09/26/18 13:00 96 H 14 172/56 98 09/26/18 12:45 102 H 17 183/56 99 09/26/18 12:30 99 H 17 198/60 100 - Physical Examination General: Other (intubated, FIO2 35, PEEP 6) HEENT: Positive: PERRL, EOMI, Normocephaly Neck: Positive: neck supple, trachea midline. Negative: JVD/HJR, Masses Cardiac: Positive: Reg Rate and Rhythm Lungs: Positive: Decreased Breath Sounds Neuro: Positive: Other (intubated) Abdomen: Positive: Unremarkable, Soft Skin: Negative: Rash, Wound Musculoskeletal: No Fluid Collection, No Pain Extremities: Present: edema (trace BLE) - Labs and Meds Comprehensive Metabolic Panel 09/27/18 09/27/18 Range/Units 04:34 06:05 Sodium TNR 137 Potassium TNR 4.5 Chloride TNR 95.0 L Carbon Dioxide TNR 25 BUN TNR 39 H Creatinine TNR 5.1 H Glucose TNR 145 H Calcium TNR 8.5 - Imaging and Cardiology EKG: report reviewed, image reviewed Echo: report reviewed (EF 50-55%, mild LVH, LA mildly dilated, mild MR, trace TR, right pleural effusion. ) - Telemetry EKG Rhythm: Sinus Rhythm - EKG Sinus rhythms and dysrhythmias: sinus rhythm
[2018-09-27] MEDS: IMDUR PO SCH (13:40)
--- NOTE | 2018-09-27 14:23 | Progress Note ---
Assessment and Plan Assessment and plan: The high probability of a clinically significant, sudden or life threatening deterioration of the [] system(s) required my full and direct attention, intervention and personal management. The aggregate critical care time was [] minutes. This time is in addition to time spent performing reported procedures but includes the following: [x] Data Review and interpretation [x] Patient assessment and monitoring of vital signs [x] Documentation [x] Medication orders and management Total Time Spent with Patient (Minutes): 34 - Patient Problems (1) Acute respiratory failure Current Visit: Yes Status: Acute Plan to address problem: Acute respiratory failure spoke with pulmonology plan is to discontinue wean fentanyl and extubate approximately 2 days. Most likely etiology pneumonia. (2) Elevated troponin Current Visit: Yes Status: Acute Plan to address problem: Elevated troponin non-STEMI2. Aspirin beta lou continue current anticoagulation cardiology following. (3) Pneumonia Current Visit: Yes Status: Acute Qualifiers: Pneumonia type: due to unspecified organism Laterality: unspecified laterality Lung location: unspecified part of lung Qualified Code(s): J18.9 - Pneumonia, unspecified organism Plan to address problem: Patient with possible aspiration pneumonia remains on broad-spectrum antibiotic coverage. Recent culture data unremarkable. (4) Respiratory failure Current Visit: Yes Status: Acute Qualifiers: Chronicity: acute Respiratory failure complication: hypoxia Qualified Code(s): J96.01 - Acute respiratory failure with hypoxia (5) CKD (chronic kidney disease) Current Visit: Yes Status: Chronic Qualifiers: Chronic kidney disease stage: unspecified stage Qualified Code(s): N18.9 - Chronic kidney disease, unspecified Plan to address problem: Chronic kidney disease continue hemodialysis tolerated Saturday. (6) Diabetes Current Visit: Yes Status: Chronic Plan to address problem: At present has fair control diabetes with sliding scale insulin and long-acting insulin. We'll not adjust any medications at this time. (7) Hypertension Current Visit: Yes Status: Chronic Qualifiers: Hypertension type: essential hypertension Qualified Code(s): I10 - Essential (primary) hypertension History Interval history: 68-year-old with history of congestive heart failure, hypertension, diabetes, chronic kidney disease presented with acute respiratory failure subsequently intubated. Found to be septic most likely secondary to aspiration pneumonia. Patient remains intubated at this particular time sedated with fentanyl. Hospital course otherwise unremarkable. Hospitalist Physical - Constitutional Vitals: Temp Pulse Resp BP Pulse Ox 100.0 F H 83 16 170/50 100 09/27/18 08:00 09/27/18 14:00 09/27/18 14:00 09/27/18 14:00 09/27/18 14:00 General appearance: Present: no acute distress, other (intubated, sedated) - EENT Eyes: Absent: scleral icterus, conjunctival injection, exopthalmos, miosis, mydriasis - Neck Neck: Present: supple, normal ROM - Respiratory Respiratory: bilateral: rhonchi - Cardiovascular Rhythm: regular (bilateral) Heart Sounds: Absent: systolic murmur - Extremities Extremities: no ischemia, pulses intact, normal temperature, normal color Extremity abnormal: edema Peripheral Pulses: within normal limits - Abdominal General gastrointestinal: soft, non-tender, non-distended, hypoactive bowel so unds Results - Labs CBC & Chem 7: 09/25/18 04:06 09/27/18 06:05 Labs: Laboratory Last Values WBC 8.9 K/mm3 (4.5-11.0) 09/25/18 04:06 RBC 2.73 M/mm3 (3.65-5.03) L 09/25/18 04:06 Hgb 7.9 gm/dl (10.1-14.3) L 09/25/18 04:06 Hct 23.4 % (30.3-42.9) L 09/25/18 04:06 MCV 86 fl (79-97) 09/25/18 04:06 MCH 29 pg (28-32) 09/25/18 04:06 MCHC 34 % (30-34) 09/25/18 04:06 RDW 14.6 % (13.2-15.2) 09/25/18 04:06 Plt Count 173 K/mm3 (140-440) 09/25/18 04:06 Lymph % (Auto) 16.7 % (13.4-35.0) 09/23/18 04:24 [place] % (Auto) 12.6 % (0.0-7.3) H 09/23/18 04:24 Eos % (Auto) 3.5 % (0.0-4.3) 09/23/18 04:24 Baso % (Auto) 1.5 % (0.0-1.8) 09/23/18 04:24 Lymph # 1.4 K/mm3 (1.2-5.4) 09/23/18 04:24 [place] # 1.1 K/mm3 (0.0-0.8) H 09/23/18 04:24 Eos # 0.3 K/mm3 (0.0-0.4) 09/23/18 04:24 Baso # 0.1 K/mm3 (0.0-0.1) 09/23/18 04:24 Seg Neutrophils % 65.7 % (40.0-70.0) 09/23/18 04:24 Seg Neutrophils # 5.5 K/mm3 (1.8-7.7) 09/23/18 04:24 D-Dimer 4401.15 ng/mlDDU (0-234) H 09/21/18 22:56 POC ABG pH 7.397 (7.35-7.45) 09/27/18 05:36 POC ABG pCO2 44.9 (35-45) 09/27/18 05:36 POC ABG pO2 136 (80-105) H 09/27/18 05:36 POC ABG HCO3 27.6 09/27/18 05:36 POC ABG Total CO2 29 09/27/18 05:36 POC ABG O2 Sat 99 09/27/18 05:36 POC ABG Base Excess 3 09/27/18 05:36 FiO2 35 % 09/27/18 05:36 Sodium 137 mmol/L (137-145) 09/27/18 06:05 Potassium 4.5 mmol/L (3.6-5.0) 09/27/18 06:05 Chloride 95.0 mmol/L (98-107) L 09/27/18 06:05 Carbon Dioxide 25 mmol/L (22-30) 09/27/18 06:05 Anion Gap 22 mmol/L 09/27/18 06:05 BUN 39 mg/dL (7-17) H 09/27/18 06:05 Creatinine 5.1 mg/dL (0.7-1.2) H 09/27/18 06:05 Estimated GFR 10 ml/min 09/27/18 06:05 BUN/Creatinine Ratio 8 % 09/27/18 06:05 Glucose 145 mg/dL (65-100) H 09/27/18 06:05 POC Glucose 181 (70-105) H 09/27/18 11:51 Lactic Acid 1.70 mmol/L (0.7-2.0) 09/22/18 04:50 Calcium 8.5 mg/dL (8.4-10.2) 09/27/18 06:05 Total Bilirubin 0.20 mg/dL (0.1-1.2) 09/21/18 22:56 AST 17 units/L (5-40) 09/21/18 22:56 ALT 9 units/L (7-56) 09/21/18 22:56 Alkaline Phosphatase 86 units/L (35-129) 09/21/18 22:56 Ammonia 57.0 umol/L (25-60) 09/21/18 22:56 Total Creatine Kinase 81 units/L (30-135) 09/22/18 10:26 CK-MB (CK-2) 3.1 ng/mL (0.0-4.0) 09/22/18 10:26 CK-MB (CK-2) Rel Index 3.8 (0-4) 09/22/18 10:26 Troponin T 0.074 ng/mL (0.00-0.029) H D 09/22/18 10:26 Serum Total Protein 5.2 g/dL (6.1-8.1) L 09/23/18 05:32 Total Protein 6.5 g/dL (6.3-8.2) 09/21/18 22:56 Albumin 2.5 g/dL (3.8-4.8) L 09/23/18 05:32 Albumin/Globulin Ratio 1.2 % 09/21/18 22:56 Khdlj-0-Ubetnwljc 0.4 g/dL (0.2-0.3) H 09/23/18 05:32 Pthwe-6-Skfyxjslt 0.8 g/dL (0.5-0.9) 09/23/18 05:32 Beta Globulins 0.4 g/dL (0.2-0.5) 09/23/18 05:32 Gamma Globulins 0.9 g/dL (0.8-1.7) 09/23/18 05:32 Abnorm Protein Band 1 see below 09/23/18 05:32 PEP Interpretation see below H 09/23/18 05:32 Triglycerides 208 mg/dL (2-149) H 09/21/18 23:57 Cholesterol 206 mg/dL (50-199) H 09/21/18 23:57 LDL Cholesterol Direct 143 mg/dL (50-130) H 09/21/18 23:57 HDL Cholesterol 40 mg/dL (40-59) 09/21/18 23:57 Cholesterol/HDL Ratio 5.15 % 09/21/18 23:57 Urine Color Yellow (Yellow) 09/23/18 16:00 Urine Turbidity Clear (Clear) 09/23/18 16:00 Urine pH 7.0 (5.0-7.0) 09/23/18 16:00 Ur Specific [place] 1.009 (1.003-1.030) 09/23/18 16:00 Urine Protein >500 mg/dL (Negative) 09/23/18 16:00 Urine Glucose (UA) 50 mg/dL (Negative) 09/23/18 16:00 Urine Ketones Neg mg/dL (Negative) 09/23/18 16:00 Urine Blood Neg (Negative) 09/23/18 16:00 Urine Nitrite Neg (Negative) 09/23/18 16:00 Urine Bilirubin Neg (Negative) 09/23/18 16:00 Urine Urobilinogen < 2.0 mg/dL (<2.0) 09/23/18 16:00 Ur Leukocyte Esterase Sm (Negative) 09/23/18 16:00 Urine WBC (Auto) 13.0 /HPF (0.0-6.0) H 09/23/18 16:00 Urine RBC (Auto) 1.0 /HPF (0.0-6.0) 09/23/18 16:00 U Epithel Cells (Auto) < 1.0 /HPF (0-13.0) 09/23/18 16:00 Urine Bacteria (Auto) 1+ /HPF (Negative) 09/23/18 16:00 Hyaline Casts 3 /LPF 09/23/18 16:00 Urine Mucus Few /HPF 09/23/18 16:00 Urine Eosinophils None seen (None Seen) 09/22/18 16:00 Urine Creatinine 80.7 mg/dL (0.1-20.0) H 09/23/18 16:00 Urine Sodium 66 mmol/L 09/23/18 16:00 Fraction Sodium Excret 3.6 09/23/18 16:00 Salicylates < 0.3 mg/dL (2.8-20.0) L 09/21/18 22:56 Acetaminophen < 5.0 ug/mL (10.0-30.0) L 09/21/18 22:56 Plasma/Serum Alcohol < 0.01 % (0-0.07) 09/21/18 22:56 AGATA Screen Negative (Negative) 09/22/18 18:06 Proteinase 3 (PR3) Ab <1.0 AI (<1.0) 09/22/18 18:06 Myeloperoxidase Ab <1.0 AI (<1.0) 09/22/18 18:06 Double Strand DNA Ab 1 IU/mL (<=4) 09/22/18 18:06 Complement C3 113 mg/dL (83-193) 09/22/18 18:06 Complement C4 57 mg/dL (15-57) 09/22/18 18:06 Hepatitis A IgM Ab Non-reactive (NonReactive) 09/22/18 18:06 Hep Bs Antigen Non-reactive (Negative) 09/22/18 18:06 Hep B Core IgM Ab Non-reactive (NonReactive) 09/22/18 18:06 Hepatitis C Antibody Non-reactive (NonReactive) 09/22/18 18:06 - Imaging and Cardiology Chest x-ray: report reviewed, image reviewed CT Scan - head: report reviewed, image reviewed Nutrition/Malnutrition Assess - Dietary Evaluation Nutrition/Malnutrition Findings: Nutrition Notes Start: 09/23/18 13:24 Freq: Status: Active Protocol: Document 09/26/18 11:08 TW (Rec: 09/26/18 11:19 TW [id number]) Co-Sign 09/26/18 11:08 OL Nutrition Notes Initial or Follow up Reassessment Current Diagnosis CKD(stage I-IV) Diabetes Sepsis Hypertension Heart Failure Respiratory Failure Other Pertinent Diagnosis AMS, pneumonia Current Diet TF Labs/Tests BUN 34 Cr 5.4 BG 185 Pertinent Medications Reviewed Height 5 ft 3 in Weight 72.6 kg [place] Body Weight (kg) 52.27 BMI 28.3 Subjective/Other Information F/U for reinserted dobhoff/ TF restart. Per RN, pt is currently in HD. RN reports that TF will restart after HD and tolerance will be monitered. Percent of energy/protein needs met: 0%/0% Burn Absent Trauma Absent Current % PO Negligible #1 Nutrition Diagnosis Inadequate oral intake Diagnosis Progress(for reassessment Continues documentation) Is patient on ventilator? Yes Is Patient Ambulatory and/or Out of Bed No REE-([facility] Jen[facility]-confined to bed) [phone] Calculation Used for Recommendations [facility] Additional Notes pro 89-148g/day (1.2-2g/kg) fluid 1ml/kcal or per MD order Nutrition Intervention Change Diet Order: Continue TF Nutrition Support: [place] 1.8 at 35ml/hr Water flush of 150 ml q4h or per MD order Kcal 1,512 Protein (gm) 68 Fluid (mL) 610 Goal #1 TF restart Goal #2 TF tolerance Anticipated Discharge Needs: Unable to determine Follow-Up By: 09/29/18 Additional Comments F/U: TF restart/ tolerance
--- NOTE | 2018-09-27 14:50 | Progress Note ---
Subjective Date of service: 09/27/18 Principal diagnosis: acute respiratory failure, end-stage renal disease, AMS Interval history: post dialysis no appreciable change at the present time adivse check EEG post hypoxia present Objective - Vital Sign Vital Signs - 12hr 09/27/18 09/27/18 09/27/18 03:00 03:14 03:15 Temperature 99.4 F Pulse Rate 81 85 Respiratory 17 18 Rate Blood Pressure 181/59 O2 Sat by Pulse 100 100 Oximetry 09/27/18 09/27/18 09/27/18 03:16 03:30 03:45 Temperature Pulse Rate 82 93 H 85 Respiratory 16 16 16 Rate Blood Pressure 185/62 178/68 180/53 O2 Sat by Pulse 98 98 99 Oximetry 09/27/18 09/27/18 09/27/18 04:00 04:16 04:30 Temperature Pulse Rate 109 H 83 87 Respiratory 17 16 15 Rate Blood Pressure 181/52 175/50 175/50 O2 Sat by Pulse 100 99 99 Oximetry 09/27/18 09/27/18 09/27/18 04:45 05:00 05:16 Temperature Pulse Rate 83 80 84 Respiratory 16 17 16 Rate Blood Pressure 173/45 173/45 163/57 O2 Sat by Pulse 98 100 99 Oximetry 09/27/18 09/27/18 09/27/18 05:30 05:36 05:46 Temperature Pulse Rate 100 H 81 126 H Respiratory 21 17 Rate Blood Pressure 163/57 163/57 123/97 O2 Sat by Pulse 100 100 99 Oximetry 09/27/18 09/27/18 09/27/18 06:00 06:16 06:30 Temperature Pulse Rate 78 74 75 Respiratory 16 16 16 Rate Blood Pressure 168/59 185/55 185/55 O2 Sat by Pulse 98 99 100 Oximetry 09/27/18 09/27/18 09/27/18 06:40 06:46 07:00 Temperature Pulse Rate 75 72 79 Respiratory 16 16 Rate Blood Pressure 180/55 150/52 128/47 O2 Sat by Pulse 99 100 Oximetry 09/27/18 09/27/18 09/27/18 07:15 07:30 07:45 Temperature Pulse Rate 80 92 H 83 Respiratory 16 16 16 Rate Blood Pressure 131/47 141/56 154/48 O2 Sat by Pulse 99 99 98 Oximetry 09/27/18 09/27/18 09/27/18 08:00 08:15 08:30 Temperature 100.0 F H Pulse Rate 82 83 91 H Respiratory 16 16 15 Rate Blood Pressure 148/52 129/54 129/54 O2 Sat by Pulse 98 98 100 Oximetry 09/27/18 09/27/18 09/27/18 08:45 09:00 09:15 Temperature Pulse Rate 86 87 85 Respiratory 16 16 16 Rate Blood Pressure 152/53 152/53 150/54 O2 Sat by Pulse 100 100 99 Oximetry 09/27/18 09/27/18 09/27/18 09:30 09:46 10:00 Temperature Pulse Rate 82 95 H 76 Respiratory 16 16 15 Rate Blood Pressure 160/49 163/47 137/49 O2 Sat by Pulse 99 99 100 Oximetry 09/27/18 09/27/18 09/27/18 10:16 10:27 10:30 Temperature Pulse Rate 85 90 89 Respiratory 17 15 Rate Blood Pressure 142/50 142/50 159/49 O2 Sat by Pulse 99 99 Oximetry 09/27/18 09/27/18 09/27/18 10:46 11:00 11:15 Temperature Pulse Rate 82 97 H 79 Respiratory 16 17 16 Rate Blood Pressure 168/42 168/42 137/49 O2 Sat by Pulse 99 100 99 Oximetry 09/27/18 09/27/18 09/27/18 11:30 11:45 12:00 Temperature Pulse Rate 75 80 74 Respiratory 16 15 16 Rate Blood Pressure 137/49 123/45 114/48 O2 Sat by Pulse 100 99 99 Oximetry 09/27/18 09/27/18 09/27/18 12:16 12:30 12:46 Temperature Pulse Rate 85 92 H 75 Respiratory 14 20 16 Rate Blood Pressure 155/55 155/55 157/48 O2 Sat by Pulse 100 100 100 Oximetry 09/27/18 09/27/18 09/27/18 13:00 13:16 13:30 Temperature Pulse Rate 85 74 87 Respiratory 16 16 16 Rate Blood Pressure 180/64 154/49 154/49 O2 Sat by Pulse 100 100 100 Oximetry 09/27/18 09/27/18 13:46 14:00 Temperature Pulse Rate 78 83 Respiratory 16 16 Rate Blood Pressure 170/50 170/50 O2 Sat by Pulse 100 100 Oximetry - Laboratory Findings CBC and BMP: 09/25/18 04:06 09/27/18 06:05 Abnormal Lab Findings: Abnormal Labs 09/21/18 09/21/18 09/21/18 22:56 22:56 22:56 RBC 3.05 L Hgb 9.0 L Hct 26.9 L Lymph % (Auto) 9.3 L [place] % (Auto) Lymph # 0.7 L [place] # Seg Neutrophils % 84.0 H D-Dimer POC ABG pH POC ABG pCO2 POC ABG pO2 Potassium 5.2 H Chloride Carbon Dioxide 17 L BUN 53 H Creatinine 6.7 H Glucose 307 H POC Glucose Lactic Acid Calcium 8.2 L CK-MB (CK-2) CK-MB (CK-2) Rel Index Troponin T Serum Total Protein Albumin 3.6 L Jdcuh-8-Ysmxgqoxa PEP Interpretation Triglycerides Cholesterol LDL Cholesterol Direct Urine WBC (Auto) Urine Creatinine Salicylates < 0.3 L Acetaminophen 09/21/18 09/21/18 09/21/18 22:56 22:56 22:56 RBC Hgb Hct Lymph % (Auto) [place] % (Auto) Lymph # [place] # Seg Neutrophils % D-Dimer 4401.15 H POC ABG pH POC ABG pCO2 POC ABG pO2 Potassium Chloride Carbon Dioxide BUN Creatinine Glucose POC Glucose Lactic Acid 3.70 H* Calcium CK-MB (CK-2) CK-MB (CK-2) Rel Index Troponin T Serum Total Protein Albumin Rwtxr-7-Abzkdvcgm PEP Interpretation Triglycerides Cholesterol LDL Cholesterol Direct Urine WBC (Auto) Urine Creatinine Salicylates Acetaminophen < 5.0 L 09/21/18 09/21/18 09/22/18 23:14 23:57 00:48 RBC Hgb Hct Lymph % (Auto) [place] % (Auto) Lymph # [place] # Seg Neutrophils % D-Dimer POC ABG pH 7.234 L 7.322 L POC ABG pCO2 POC ABG pO2 118 H 142 H Potassium Chloride Carbon Dioxide BUN Creatinine Glucose POC Glucose Lactic Acid Calcium CK-MB (CK-2) CK-MB (CK-2) Rel Index Troponin T 0.062 H D Serum Total Protein Albumin Auqna-6-Dpsxguoik PEP Interpretation Triglycerides 208 H Cholesterol 206 H LDL Cholesterol Direct 143 H Urine WBC (Auto) Urine Creatinine Salicylates Acetaminophen 09/22/18 09/22/18 09/22/18 04:50 05:03 06:43 RBC Hgb Hct Lymph % (Auto) [place] % (Auto) Lymph # [place] # Seg Neutrophils % D-Dimer POC ABG pH 7.556 H POC ABG pCO2 22.4 L POC ABG pO2 176 H Potassium Chloride Carbon Dioxide BUN Creatinine Glucose POC Glucose 116 H Lactic Acid Calcium CK-MB (CK-2) 4.1 H CK-MB (CK-2) Rel Index 4.7 H Troponin T 0.107 H* D Serum Total Protein Albumin Sdmyg-2-Bpuaercpu PEP Interpretation Triglycerides Cholesterol LDL Cholesterol Direct Urine WBC (Auto) Urine Creatinine Salicylates Acetaminophen 09/22/18 09/22/18 09/22/18 09:12 10:26 18:00 RBC Hgb Hct Lymph % (Auto) [place] % (Auto) Lymph # [place] # Seg Neutrophils % D-Dimer POC ABG pH POC ABG pCO2 POC ABG pO2 Potassium Chloride Carbon Dioxide BUN Creatinine 6.7 H Glucose POC Glucose 124 H Lactic Acid Calcium CK-MB (CK-2) CK-MB (CK-2) Rel Index Troponin T 0.074 H D Serum Total Protein Albumin Cndtk-1-Bykuxwwdm PEP Interpretation Triglycerides Cholesterol LDL Cholesterol Direct Urine WBC (Auto) Urine Creatinine Salicylates Acetaminophen 09/23/18 09/23/18 09/23/18 03:57 04:24 04:24 RBC 2.85 L Hgb 8.0 L Hct 24.4 L Lymph % (Auto) [place] % (Auto) 12.6 H Lymph # [place] # 1.1 H Seg Neutrophils % D-Dimer POC ABG pH POC ABG pCO2 27.2 L POC ABG pO2 113 H Potassium Chloride 113.4 H Carbon Dioxide 19 L BUN 54 H Creatinine 7.0 H Glucose POC Glucose Lactic Acid Calcium 8.3 L CK-MB (CK-2) CK-MB (CK-2) Rel Index Troponin T Serum Total Protein Albumin Hmnfk-4-Tefrfmhlu PEP Interpretation Triglycerides Cholesterol LDL Cholesterol Direct Urine WBC (Auto) Urine Creatinine Salicylates Acetaminophen 09/23/18 09/23/18 09/23/18 05:32 16:00 16:00 RBC Hgb Hct Lymph % (Auto) [place] % (Auto) Lymph # [place] # Seg Neutrophils % D-Dimer POC ABG pH POC ABG pCO2 POC ABG pO2 Potassium Chloride Carbon Dioxide BUN Creatinine Glucose POC Glucose Lactic Acid Calcium CK-MB (CK-2) CK-MB (CK-2) Rel Index Troponin T Serum Total Protein 5.2 L Albumin 2.5 L Mwnwu-3-Oxzxsadax 0.4 H PEP Interpretation see below H Triglycerides Cholesterol LDL Cholesterol Direct Urine WBC (Auto) 13.0 H Urine Creatinine 80.7 H Salicylates Acetaminophen 09/23/18 09/23/18 09/24/18 18:47 23:53 04:28 RBC 2.66 L Hgb 7.6 L Hct 22.5 L Lymph % (Auto) [place] % (Auto) Lymph # [place] # Seg Neutrophils % D-Dimer POC ABG pH POC ABG pCO2 POC ABG pO2 Potassium Chloride Carbon Dioxide BUN Creatinine Glucose POC Glucose 115 H 145 H Lactic Acid Calcium CK-MB (CK-2) CK-MB (CK-2) Rel Index Troponin T Serum Total Protein Albumin Xyrzt-8-Dhlifsgav PEP Interpretation Triglycerides Cholesterol LDL Cholesterol Direct Urine WBC (Auto) Urine Creatinine Salicylates Acetaminophen 09/24/18 09/24/18 09/24/18 04:28 04:56 05:33 RBC Hgb Hct Lymph % (Auto) [place] % (Auto) Lymph # [place] # Seg Neutrophils % D-Dimer POC ABG pH 7.551 H POC ABG pCO2 32.0 L POC ABG pO2 133 H Potassium Chloride Carbon Dioxide BUN 27 H Creatinine 4.8 H Glucose 129 H POC Glucose 127 H Lactic Acid Calcium 8.0 L CK-MB (CK-2) CK-MB (CK-2) Rel Index Troponin T Serum Total Protein Albumin Wpyfv-4-Qmlqlfktg PEP Interpretation Triglycerides Cholesterol LDL Cholesterol Direct Urine WBC (Auto) Urine Creatinine Salicylates Acetaminophen 09/24/18 09/24/18 09/24/18 12:39 19:57 23:53 RBC Hgb Hct Lymph % (Auto) [place] % (Auto) Lymph # [place] # Seg Neutrophils % D-Dimer POC ABG pH POC ABG pCO2 POC ABG pO2 Potassium Chloride Carbon Dioxide BUN Creatinine Glucose POC Glucose 171 H 209 H 158 H Lactic Acid Calcium CK-MB (CK-2) CK-MB (CK-2) Rel Index Troponin T Serum Total Protein Albumin Viydk-7-Mahzzfnns PEP Interpretation Triglycerides Cholesterol LDL Cholesterol Direct Urine WBC (Auto) Urine Creatinine Salicylates Acetaminophen 09/25/18 09/25/18 09/25/18 04:06 04:06 05:16 RBC 2.73 L Hgb 7.9 L Hct 23.4 L Lymph % (Auto) [place] % (Auto) Lymph # [place] # Seg Neutrophils % D-Dimer POC ABG pH 7.477 H POC ABG pCO2 POC ABG pO2 122 H Potassium Chloride 97.2 L Carbon Dioxide BUN Creatinine 3.6 H Glucose 118 H POC Glucose Lactic Acid Calcium 8.2 L CK-MB (CK-2) CK-MB (CK-2) Rel Index Troponin T Serum Total Protein Albumin Izvub-2-Txygtefec PEP Interpretation Triglycerides Cholesterol LDL Cholesterol Direct Urine WBC (Auto) Urine Creatinine Salicylates Acetaminophen 09/25/18 09/25/18 09/25/18 05:55 12:29 16:21 RBC Hgb Hct Lymph % (Auto) [place] % (Auto) Lymph # [place] # Seg Neutrophils % D-Dimer POC ABG pH 7.216 L POC ABG pCO2 79.9 H POC ABG pO2 Potassium Chloride Carbon Dioxide BUN Creatinine Glucose POC Glucose 144 H 128 H Lactic Acid Calcium CK-MB (CK-2) CK-MB (CK-2) Rel Index Troponin T Serum Total Protein Albumin Lurgd-0-Plnomarur PEP Interpretation Triglycerides Cholesterol LDL Cholesterol Direct Urine WBC (Auto) Urine Creatinine Salicylates Acetaminophen 09/25/18 09/25/18 09/25/18 18:27 18:44 23:56 RBC Hgb Hct Lymph % (Auto) [place] % (Auto) Lymph # [place] # Seg Neutrophils % D-Dimer POC ABG pH POC ABG pCO2 53.2 H POC ABG pO2 78 L Potassium Chloride Carbon Dioxide BUN Creatinine Glucose POC Glucose 264 H 170 H Lactic Acid Calcium CK-MB (CK-2) CK-MB (CK-2) Rel Index Troponin T Serum Total Protein Albumin Zhwfz-0-Rtcgkddsz PEP Interpretation Triglycerides Cholesterol LDL Cholesterol Direct Urine WBC (Auto) Urine Creatinine Salicylates Acetaminophen 09/26/18 09/26/18 09/26/18 03:46 04:51 05:04 RBC Hgb Hct Lymph % (Auto) [place] % (Auto) Lymph # [place] # Seg Neutrophils % D-Dimer POC ABG pH 7.584 H POC ABG pCO2 30.9 L POC ABG pO2 151 H Potassium Chloride 95.5 L Carbon Dioxide BUN 34 H Creatinine 5.4 H Glucose 185 H POC Glucose 186 H Lactic Acid Calcium CK-MB (CK-2) CK-MB (CK-2) Rel Index Troponin T Serum Total Protein Albumin Lkzss-4-Xyftobqqi PEP Interpretation Triglycerides Cholesterol LDL Cholesterol Direct Urine WBC (Auto) Urine Creatinine Salicylates Acetaminophen 09/26/18 09/26/18 09/26/18 06:23 12:41 17:55 RBC Hgb Hct Lymph % (Auto) [place] % (Auto) Lymph # [place] # Seg Neutrophils % D-Dimer POC ABG pH 7.330 L POC ABG pCO2 49.9 H POC ABG pO2 Potassium Chloride Carbon Dioxide BUN Creatinine Glucose POC Glucose 182 H 171 H Lactic Acid Calcium CK-MB (CK-2) CK-MB (CK-2) Rel Index Troponin T Serum Total Protein Albumin Bcnzu-2-Nkcbgqpxk PEP Interpretation Triglycerides Cholesterol LDL Cholesterol Direct Urine WBC (Auto) Urine Creatinine Salicylates Acetaminophen 09/27/18 09/27/18 09/27/18 00:06 05:11 05:36 RBC Hgb Hct Lymph % (Auto) [place] % (Auto) Lymph # [place] # Seg Neutrophils % D-Dimer POC ABG pH POC ABG pCO2 POC ABG pO2 136 H Potassium Chloride Carbon Dioxide BUN Creatinine Glucose POC Glucose 170 H 115 H Lactic Acid Calcium CK-MB (CK-2) CK-MB (CK-2) Rel Index Troponin T Serum Total Protein Albumin Qopsa-1-Vfsjxvmfx PEP Interpretation Triglycerides Cholesterol LDL Cholesterol Direct Urine WBC (Auto) Urine Creatinine Salicylates Acetaminophen 09/27/18 09/27/18 06:05 11:51 RBC Hgb Hct Lymph % (Auto) [place] % (Auto) Lymph # [place] # Seg Neutrophils % D-Dimer POC ABG pH POC ABG pCO2 POC ABG pO2 Potassium Chloride 95.0 L Carbon Dioxide BUN 39 H Creatinine 5.1 H Glucose 145 H POC Glucose 181 H Lactic Acid Calcium CK-MB (CK-2) CK-MB (CK-2) Rel Index Troponin T Serum Total Protein Albumin Cuogd-1-Cfuuumatt PEP Interpretation Triglycerides Cholesterol LDL Cholesterol Direct Urine WBC (Auto) Urine Creatinine Salicylates Acetaminophen
--- NOTE | 2018-09-27 20:18 | Consultation ---
HISTORY OF PRESENT ILLNESS: This 68-year-old black female presents to Emergency Room of [facility] on 09/21/2018 with acute respiratory distress. She had altered mental status, ____ respiratory disease, was intubated upon arrival and had been nonresponsive following that. She apparently had chest pain, taken nitroglycerin and apparently was hypoxic with O2 in the 40s at time and was not responsive when she was found. PAST MEDICAL HISTORY: Significant for the fact that the patient had prior cardiac disease. She had a CT scan of the head, which was done in the hospital. On admission, she had a prior history of having renal failure, was on dialysis. Creatinine is 6.7, BUN of 53, potassium 5.2. Ammonia 57 on admission, which is at the upper limits of normal. Lactic acid was 3.7 on admission. She was initially felt to have hypoxemia, respiratory failure, was intubated and had acidosis and the patient was felt to have respiratory pneumonia with condition. Neurologic consultation is obtained to further assess the patient. PHYSICAL EXAMINATION: On my examination, she is unresponsive, does not respond to verbal stimulation, opens her eyes barely and does not have active movement present. No seizure activity. Cranial nerves are intact. Funduscopic examination unremarkable. The patient's motor and sensory examination is lax spontaneous movement, does not respond well to stimulation. She does have active gag reflex. On discussing the case with the dialysis nurse who is doing dialysis, there is no response at all while she is being dialyzed to the treatment, but she does have at times agitation and had received some doses of propofol, which may be altering this examination that I am seeing her with. IMPRESSION: Post-hypoxic encephalopathy, altered somewhat by the fact she is taking propofol. I would recommend repeat EEG. I will follow the patient with you. JOB# [id number] RADHA/NTS
[2018-09-27] MEDS ORDERED: NORMODYNE PO SCH (22:00)
[2018-09-28] MEDS: HALDOL IM PRN (01:05)
[2018-09-28] MEDS: ATIVAN IV PRN (02:35)
[2018-09-28] MEDS: fentaNYL DRIP Premix 2,000 MCG/100 ML BAG IV SCH (03:47)
[2018-09-28] MEDS: HumaLOG SUB-Q SCH ×4 (06:20→18:19)
[2018-09-28] MEDS: APRESOLINE PO SCH ×3 (08:44→20:14)
[2018-09-28] MEDS ORDERED: SUBLIMAZE IV PRN ×2 (09:11→09:23)
--- NOTE | 2018-09-28 09:18 | Progress Note ---
Assessment and Plan respiratory failure on vent nstemi type 2 htn chol esrd oh hd Anemia rec: Blood pressure is better controlled as per pulmonary trying to extubate once patient's mental status is stabilized Subjective Date of service: 09/28/18 Principal diagnosis: acute respiratory failure, end-stage renal disease, AMS Interval history: pt on vent agitated Objective Vital Signs Temp Pulse Pulse Pulse Pulse Resp BP 09/28/18 09:00 104 H 22 166/61 09/28/18 08:46 84 18 166/61 09/28/18 08:30 82 21 187/61 09/28/18 08:16 100 H 25 H 187/61 09/28/18 08:00 83 96 H 96 H 96 H 20 176/53 09/28/18 07:46 108 H 26 H 176/53 09/28/18 07:42 74 20 125/45 09/28/18 07:30 69 18 125/45 09/28/18 07:15 72 19 123/49 09/28/18 07:00 74 16 126/55 09/28/18 06:46 72 18 111/45 09/28/18 06:30 77 17 114/43 09/28/18 06:15 73 17 116/45 09/28/18 06:00 72 18 120/40 09/28/18 05:45 72 18 117/42 09/28/18 05:30 73 18 114/42 09/28/18 05:15 75 18 124/45 09/28/18 05:00 72 16 139/46 09/28/18 04:46 72 18 139/46 09/28/18 04:30 68 17 115/39 09/28/18 04:22 98.8 F 09/28/18 04:15 69 18 124/43 09/28/18 04:00 67 18 133/46 09/28/18 03:52 68 68 19 09/28/18 03:48 70 163/51 09/28/18 03:45 72 19 163/51 09/28/18 03:30 118 H 20 175/115 09/28/18 03:16 100 H 16 176/81 09/28/18 03:00 73 16 127/51 09/28/18 02:45 70 16 123/51 09/28/18 02:30 75 17 132/52 02/10/19 02:15 73 16 127/54 02/10/19 02:00 74 16 126/52 09/28/18 01:45 74 16 120/50 09/28/18 01:30 72 16 134/54 09/28/18 01:15 75 17 145/57 09/28/18 01:00 97 H 16 156/78 09/28/18 00:45 75 16 113/52 09/28/18 00:30 73 16 136/60 09/28/18 00:15 73 16 136/60 09/28/18 00:00 98.9 F 74 72 72 21 141/57 09/27/18 23:45 86 18 158/62 09/27/18 23:30 77 16 150/60 09/27/18 23:15 78 16 140/59 09/27/18 23:00 85 16 137/65 09/27/18 22:45 87 16 131/56 09/27/18 22:30 78 16 138/53 09/27/18 22:16 82 16 138/53 09/27/18 22:00 93 H 16 172/62 09/27/18 21:50 87 16 175/56 09/27/18 21:49 103 H 09/27/18 21:48 93 H 175/56 09/27/18 21:45 90 16 175/56 09/27/18 21:30 95 H 16 157/70 09/27/18 21:15 78 16 133/50 09/27/18 21:00 99 H 16 166/70 09/27/18 20:46 78 16 145/49 09/27/18 20:30 81 16 145/49 09/27/18 20:15 82 16 144/59 09/27/18 20:09 99.4 F 09/27/18 20:00 84 16 153/60 09/27/18 19:59 85 152/80 09/27/18 19:46 86 17 152/60 09/27/18 19:42 77 77 18 09/27/18 19:30 80 16 161/57 09/27/18 19:15 79 16 161/54 09/27/18 19:00 81 16 142/59 09/27/18 18:45 84 16 122/57 09/27/18 18:30 85 16 112/51 09/27/18 18:15 84 16 145/52 09/27/18 18:00 87 16 157/67 09/27/18 17:46 82 16 157/67 09/27/18 17:30 107 H 16 191/74 09/27/18 17:25 111 H 169/60 09/27/18 17:15 83 14 174/60 09/27/18 17:00 80 16 152/59 09/27/18 16:46 85 17 157/58 09/27/18 16:30 95 H 15 146/54 09/27/18 16:15 79 16 146/54 09/27/18 16:00 99.1 F 79 16 146/52 09/27/18 15:45 81 19 148/54 09/27/18 15:30 100 H 14 156/55 09/27/18 15:15 82 17 146/52 09/27/18 15:00 86 15 176/56 09/27/18 14:46 73 16 159/49 09/27/18 14:30 77 15 154/60 09/27/18 14:16 78 16 154/60 09/27/18 14:00 83 16 170/50 09/27/18 13:46 78 16 170/50 09/27/18 13:30 87 16 154/49 09/27/18 13:16 74 16 154/49 09/27/18 13:00 85 16 180/64 09/27/18 12:46 75 16 157/48 09/27/18 12:30 92 H 20 155/55 09/27/18 12:16 85 14 155/55 09/27/18 12:00 74 16 114/48 09/27/18 11:45 80 15 123/45 09/27/18 11:30 75 16 137/49 09/27/18 11:15 79 16 137/49 09/27/18 11:00 97 H 17 168/42 09/27/18 10:46 82 16 168/42 09/27/18 10:30 89 15 159/49 09/27/18 10:27 90 142/50 09/27/18 10:16 85 17 142/50 09/27/18 10:00 76 15 137/49 09/27/18 09:46 95 H 16 163/47 09/27/18 09:30 82 16 160/49 Pulse Ox 09/28/18 09:00 100 09/28/18 08:46 100 09/28/18 08:30 100 09/28/18 08:16 100 09/28/18 08:00 100 09/28/18 07:46 100 09/28/18 07:42 100 09/28/18 07:30 100 09/28/18 07:15 99 09/28/18 07:00 99 09/28/18 06:46 100 09/28/18 06:30 99 09/28/18 06:15 99 09/28/18 06:00 100 09/28/18 05:45 100 09/28/18 05:30 99 09/28/18 05:15 99 09/28/18 05:00 100 09/28/18 04:46 100 09/28/18 04:30 100 09/28/18 04:22 09/28/18 04:15 100 09/28/18 04:00 100 09/28/18 03:52 100 09/28/18 03:48 100 09/28/18 03:45 100 09/28/18 03:30 100 09/28/18 03:16 99 09/28/18 03:00 100 09/28/18 02:45 100 09/28/18 02:30 100 09/28/18 02:15 100 09/28/18 02:00 100 09/28/18 01:45 100 09/28/18 01:30 100 09/28/18 01:15 100 09/28/18 01:00 100 09/28/18 00:45 100 09/28/18 00:30 100 09/28/18 00:15 100 09/28/18 00:00 100 09/27/18 23:45 100 09/27/18 23:30 100 09/27/18 23:15 100 09/27/18 23:00 100 09/27/18 22:45 100 09/27/18 22:30 100 09/27/18 22:16 100 09/27/18 22:00 100 09/27/18 21:50 100 09/27/18 21:49 09/27/18 21:48 09/27/18 21:45 100 09/27/18 21:30 100 09/27/18 21:15 100 09/27/18 21:00 100 09/27/18 20:46 100 09/27/18 20:30 98 09/27/18 20:15 98 09/27/18 20:09 09/27/18 20:00 98 09/27/18 19:59 99 09/27/18 19:46 98 09/27/18 19:42 100 09/27/18 19:30 99 09/27/18 19:15 99 09/27/18 19:00 99 09/27/18 18:45 97 09/27/18 18:30 98 09/27/18 18:15 96 09/27/18 18:00 100 09/27/18 17:46 98 09/27/18 17:30 98 09/27/18 17:25 100 09/27/18 17:15 99 09/27/18 17:00 98 09/27/18 16:46 99 09/27/18 16:30 100 09/27/18 16:15 99 09/27/18 16:00 99 09/27/18 15:45 98 09/27/18 15:30 100 09/27/18 15:15 98 09/27/18 15:00 100 09/27/18 14:46 100 09/27/18 14:30 100 09/27/18 14:16 99 09/27/18 14:00 100 09/27/18 13:46 100 09/27/18 13:30 100 09/27/18 13:16 100 09/27/18 13:00 100 09/27/18 12:46 100 09/27/18 12:30 100 09/27/18 12:16 100 09/27/18 12:00 99 09/27/18 11:45 99 09/27/18 11:30 100 09/27/18 11:15 99 09/27/18 11:00 100 09/27/18 10:46 99 09/27/18 10:30 99 09/27/18 10:27 09/27/18 10:16 99 09/27/18 10:00 100 09/27/18 09:46 99 09/27/18 09:30 99 - Physical Examination General: Other (intubated, FIO2 35, PEEP 6) HEENT: Positive: PERRL, EOMI, Normocephaly Neck: Positive: neck supple, trachea midline. Negative: JVD/HJR, Masses Cardiac: Positive: Reg Rate and Rhythm Lungs: Positive: clear to auscultation Neuro: Positive: Other (intubated) Abdomen: Positive: Unremarkable, Soft Skin: Negative: Rash, Wound Musculoskeletal: No Fluid Collection, No Pain Extremities: Present: edema (trace BLE) - Labs and Meds Comprehensive Metabolic Panel 09/28/18 Range/Units 04:39 Sodium 134 L (137-145) mmol/L Potassium 4.3 (3.6-5.0) mmol/L Chloride 95.2 L (98-107) mmol/L Carbon Dioxide 24 (22-30) mmol/L BUN 61 H (7-17) mg/dL Creatinine 7.2 H (0.7-1.2) mg/dL Glucose 165 H (65-100) mg/dL Calcium 8.0 L (8.4-10.2) mg/dL - Imaging and Cardiology EKG: report reviewed, image reviewed Echo: report reviewed (EF 50-55%, mild LVH, LA mildly dilated, mild MR, trace TR, right pleural effusion. ) - Telemetry EKG Rhythm: Sinus Rhythm - EKG Sinus rhythms and dysrhythmias: sinus rhythm
--- NOTE | 2018-09-28 09:22 | Progress Note ---
Assessment and Plan 68 y/o female with acute respiratory failure and ESRD. 1. Stopping Fentanyl and Propofol drips so that they disappear from OCT 2. Called pharmacy as I have ordered Precedex as I think this patient would be good candidate for it. Per pharmacy they will "look into it". Spoke with nurse to let them know to be on the look out for this. 3. Changed PRN Haldol to scheduled, this could be some delirium and added PRN fentanyl pushes. Left Ativan at current dosing 4. Reviewed Neuro note, they are concerned about anoxia. Suggest EEG. If they haven't ordered it, will order tomorrow. Will ask them to discuss their thoughts with the family. Per ED charting, Patient had sats in the 40's upon EMS arrival and in the 80's on arrival to ED on nonrebreather and was intubated in the ED. 5. HD per renal, should be dialyzed tomorrow. CCT 31 minutes. Subjective Date of service: 09/28/18 Principal diagnosis: acute respiratory failure, end-stage renal disease, AMS Interval history: More agitated this am, more restless. Not following commands. Fentanyl is down to one. Family not present. BUN and Cr up today but scheduled for HD tomorrow. ABG is good. Objective Vital Signs - 12hr 09/27/18 09/27/18 09/27/18 21:30 21:45 21:48 Temperature Pulse Rate 95 H 90 93 H Pulse Rate [ From Monitor] Pulse Rate [ Left Dorsalis Pedis] Pulse Rate [ Right Dorsalis Pedis] Respiratory 16 16 Rate Blood Pressure 157/70 175/56 175/56 O2 Sat by Pulse 100 100 Oximetry 09/27/18 09/27/18 09/27/18 21:49 21:50 22:00 Temperature Pulse Rate 103 H 87 93 H Pulse Rate [ From Monitor] Pulse Rate [ Left Dorsalis Pedis] Pulse Rate [ Right Dorsalis Pedis] Respiratory 16 16 Rate Blood Pressure 175/56 172/62 O2 Sat by Pulse 100 100 Oximetry 09/27/18 09/27/18 09/27/18 22:16 22:30 22:45 Temperature Pulse Rate 82 78 87 Pulse Rate [ From Monitor] Pulse Rate [ Left Dorsalis Pedis] Pulse Rate [ Right Dorsalis Pedis] Respiratory 16 16 16 Rate Blood Pressure 138/53 138/53 131/56 O2 Sat by Pulse 100 100 100 Oximetry 09/27/18 09/27/18 09/27/18 23:00 23:15 23:30 Temperature Pulse Rate 85 78 77 Pulse Rate [ From Monitor] Pulse Rate [ Left Dorsalis Pedis] Pulse Rate [ Right Dorsalis Pedis] Respiratory 16 16 16 Rate Blood Pressure 137/65 140/59 150/60 O2 Sat by Pulse 100 100 100 Oximetry 09/27/18 09/28/18 09/28/18 23:45 00:00 00:15 Temperature 98.9 F Pulse Rate 86 74 73 Pulse Rate [ 72 From Monitor] Pulse Rate [ Left Dorsalis Pedis] Pulse Rate [ 72 Right Dorsalis Pedis] Respiratory 18 21 16 Rate Blood Pressure 158/62 141/57 136/60 O2 Sat by Pulse 100 100 100 Oximetry 09/28/18 09/28/18 09/28/18 00:30 00:45 01:00 Temperature Pulse Rate 73 75 97 H Pulse Rate [ From Monitor] Pulse Rate [ Left Dorsalis Pedis] Pulse Rate [ Right Dorsalis Pedis] Respiratory 16 16 16 Rate Blood Pressure 136/60 113/52 156/78 O2 Sat by Pulse 100 100 100 Oximetry 09/28/18 09/28/18 09/28/18 01:15 01:30 01:45 Temperature Pulse Rate 75 72 74 Pulse Rate [ From Monitor] Pulse Rate [ Left Dorsalis Pedis] Pulse Rate [ Right Dorsalis Pedis] Respiratory 17 16 16 Rate Blood Pressure 145/57 134/54 120/50 O2 Sat by Pulse 100 100 100 Oximetry 09/28/18 09/28/18 09/28/18 02:00 02:15 02:30 Temperature Pulse Rate 74 73 75 Pulse Rate [ From Monitor] Pulse Rate [ Left Dorsalis Pedis] Pulse Rate [ Right Dorsalis Pedis] Respiratory 16 16 17 Rate Blood Pressure 126/52 127/54 132/52 O2 Sat by Pulse 100 100 100 Oximetry 09/28/18 09/28/18 09/28/18 02:45 03:00 03:16 Temperature Pulse Rate 70 73 100 H Pulse Rate [ From Monitor] Pulse Rate [ Left Dorsalis Pedis] Pulse Rate [ Right Dorsalis Pedis] Respiratory 16 16 16 Rate Blood Pressure 123/51 127/51 176/81 O2 Sat by Pulse 100 100 99 Oximetry 02/06/0609/28/18 09/28/18 03:30 03:45 03:48 Temperature Pulse Rate 118 H 72 70 Pulse Rate [ From Monitor] Pulse Rate [ Left Dorsalis Pedis] Pulse Rate [ Right Dorsalis Pedis] Respiratory 20 19 Rate Blood Pressure 175/115 163/51 163/51 O2 Sat by Pulse 100 100 100 Oximetry 09/28/18 09/28/18 09/28/18 03:52 04:00 04:15 Temperature Pulse Rate 67 69 Pulse Rate [ 68 From Monitor] Pulse Rate [ Left Dorsalis Pedis] Pulse Rate [ 68 Right Dorsalis Pedis] Respiratory 19 18 18 Rate Blood Pressure 133/46 124/43 O2 Sat by Pulse 100 100 100 Oximetry 09/28/18 09/28/18 09/28/18 04:22 04:30 04:46 Temperature 98.8 F Pulse Rate 68 72 Pulse Rate [ From Monitor] Pulse Rate [ Left Dorsalis Pedis] Pulse Rate [ Right Dorsalis Pedis] Respiratory 17 18 Rate Blood Pressure 115/39 139/46 O2 Sat by Pulse 100 100 Oximetry 09/28/18 09/28/18 09/28/18 05:00 05:15 05:30 Temperature Pulse Rate 72 75 73 Pulse Rate [ From Monitor] Pulse Rate [ Left Dorsalis Pedis] Pulse Rate [ Right Dorsalis Pedis] Respiratory 16 18 18 Rate Blood Pressure 139/46 124/45 114/42 O2 Sat by Pulse 100 99 99 Oximetry 09/28/18 09/28/18 09/28/18 05:45 06:00 06:15 Temperature Pulse Rate 72 72 73 Pulse Rate [ From Monitor] Pulse Rate [ Left Dorsalis Pedis] Pulse Rate [ Right Dorsalis Pedis] Respiratory 18 18 17 Rate Blood Pressure 117/42 120/40 116/45 O2 Sat by Pulse 100 100 99 Oximetry 09/28/18 09/28/18 09/28/18 06:30 06:46 07:00 Temperature Pulse Rate 77 72 74 Pulse Rate [ From Monitor] Pulse Rate [ Left Dorsalis Pedis] Pulse Rate [ Right Dorsalis Pedis] Respiratory 17 18 16 Rate Blood Pressure 114/43 111/45 126/55 O2 Sat by Pulse 99 100 99 Oximetry 09/28/18 09/28/18 09/28/18 07:15 07:30 07:42 Temperature Pulse Rate 72 69 74 Pulse Rate [ From Monitor] Pulse Rate [ Left Dorsalis Pedis] Pulse Rate [ Right Dorsalis Pedis] Respiratory 19 18 20 Rate Blood Pressure 123/49 125/45 125/45 O2 Sat by Pulse 99 100 100 Oximetry 09/28/18 09/28/18 09/28/18 07:46 08:00 08:16 Temperature Pulse Rate 108 H 83 100 H Pulse Rate [ 96 H From Monitor] Pulse Rate [ 96 H Left Dorsalis Pedis] Pulse Rate [ 96 H Right Dorsalis Pedis] Respiratory 26 H 20 25 H Rate Blood Pressure 176/53 176/53 187/61 O2 Sat by Pulse 100 100 100 Oximetry 09/28/18 09/28/18 09/28/18 08:30 08:46 09:00 Temperature Pulse Rate 82 84 104 H Pulse Rate [ From Monitor] Pulse Rate [ Left Dorsalis Pedis] Pulse Rate [ Right Dorsalis Pedis] Respiratory 21 18 22 Rate Blood Pressure 187/61 166/61 166/61 O2 Sat by Pulse 100 100 100 Oximetry Constitutional: no acute distress, other (orally intubated but not following commands this am. More movement in bed.) Eyes: non-icteric ENT: oropharynx moist, other (orally intubated) Effort: normal Ascultation: Bilateral: clear, diminished breath sounds Cardiovascular: regular rate and rhythm Gastrointestinal: normoactive bowel sounds, non-distended Integumentary: normal Extremities: no cyanosis, no edema Neurologic: other (RASS -1) CBC and BMP: 09/25/18 04:06 09/28/18 04:39 ABG, PT/INR, D-dimer: ABG POC ABG pH 7.403 (7.35-7.45) 09/28/18 04:44 POC ABG pCO2 42.8 (35-45) 09/28/18 04:44 POC ABG pO2 151 (80-105) H 09/28/18 04:44 POC ABG HCO3 26.7 09/28/18 04:44 POC ABG Total CO2 28 09/28/18 04:44 POC ABG O2 Sat 99 09/28/18 04:44 PT/INR, D-dimer D-Dimer 4401.15 ng/mlDDU (0-234) H 09/21/18 22:56 Abnormal lab findings: Abnormal Labs 09/21/18 09/21/18 09/21/18 22:56 22:56 22:56 RBC 3.05 L Hgb 9.0 L Hct 26.9 L Lymph % (Auto) 9.3 L Gillespie % (Auto) Lymph # 0.7 L Gillespie # Seg Neutrophils % 84.0 H D-Dimer POC ABG pH POC ABG pCO2 POC ABG pO2 Sodium Potassium 5.2 H Chloride Carbon Dioxide 17 L BUN 53 H Creatinine 6.7 H Glucose 307 H POC Glucose Lactic Acid Calcium 8.2 L CK-MB (CK-2) CK-MB (CK-2) Rel Index Troponin T Serum Total Protein Albumin 3.6 L Iltae-8-Fedcmtjod PEP Interpretation Triglycerides Cholesterol LDL Cholesterol Direct Urine WBC (Auto) Urine Creatinine Salicylates < 0.3 L Acetaminophen 09/21/18 09/21/18 09/21/18 22:56 22:56 22:56 RBC Hgb Hct Lymph % (Auto) Gillespie % (Auto) Lymph # Gillespie # Seg Neutrophils % D-Dimer 4401.15 H POC ABG pH POC ABG pCO2 POC ABG pO2 Sodium Potassium Chloride Carbon Dioxide BUN Creatinine Glucose POC Glucose Lactic Acid 3.70 H* Calcium CK-MB (CK-2) CK-MB (CK-2) Rel Index Troponin T Serum Total Protein Albumin Gavvm-7-Nvslikutk PEP Interpretation Triglycerides Cholesterol LDL Cholesterol Direct Urine WBC (Auto) Urine Creatinine Salicylates Acetaminophen < 5.0 L 09/21/18 09/21/18 09/22/18 23:14 23:57 00:48 RBC Hgb Hct Lymph % (Auto) Gillespie % (Auto) Lymph # Gillespie # Seg Neutrophils % D-Dimer POC ABG pH 7.234 L 7.322 L POC ABG pCO2 POC ABG pO2 118 H 142 H Sodium Potassium Chloride Carbon Dioxide BUN Creatinine Glucose POC Glucose Lactic Acid Calcium CK-MB (CK-2) CK-MB (CK-2) Rel Index Troponin T 0.062 H D Serum Total Protein Albumin Dfvad-0-Dctwxffgk PEP Interpretation Triglycerides 208 H Cholesterol 206 H LDL Cholesterol Direct 143 H Urine WBC (Auto) Urine Creatinine Salicylates Acetaminophen 09/22/18 09/22/18 09/22/18 04:50 05:03 06:43 RBC Hgb Hct Lymph % (Auto) Gillespie % (Auto) Lymph # Gillespie # Seg Neutrophils % D-Dimer POC ABG pH 7.556 H POC ABG pCO2 22.4 L POC ABG pO2 176 H Sodium Potassium Chloride Carbon Dioxide BUN Creatinine Glucose POC Glucose 116 H Lactic Acid Calcium CK-MB (CK-2) 4.1 H CK-MB (CK-2) Rel Index 4.7 H Troponin T 0.107 H* D Serum Total Protein Albumin Sfhyq-6-Kghuenbtw PEP Interpretation Triglycerides Cholesterol LDL Cholesterol Direct Urine WBC (Auto) Urine Creatinine Salicylates Acetaminophen 09/22/18 09/22/18 09/22/18 09:12 10:26 18:00 RBC Hgb Hct Lymph % (Auto) Gillespie % (Auto) Lymph # Gillespie # Seg Neutrophils % D-Dimer POC ABG pH POC ABG pCO2 POC ABG pO2 Sodium Potassium Chloride Carbon Dioxide BUN Creatinine 6.7 H Glucose POC Glucose 124 H Lactic Acid Calcium CK-MB (CK-2) CK-MB (CK-2) Rel Index Troponin T 0.074 H D Serum Total Protein Albumin Jipjk-6-Nagrtxjud PEP Interpretation Triglycerides Cholesterol LDL Cholesterol Direct Urine WBC (Auto) Urine Creatinine Salicylates Acetaminophen 09/23/18 09/23/18 09/23/18 03:57 04:24 04:24 RBC 2.85 L Hgb 8.0 L Hct 24.4 L Lymph % (Auto) Gillespie % (Auto) 12.6 H Lymph # Gillespie # 1.1 H Seg Neutrophils % D-Dimer POC ABG pH POC ABG pCO2 27.2 L POC ABG pO2 113 H Sodium Potassium Chloride 113.4 H Carbon Dioxide 19 L BUN 54 H Creatinine 7.0 H Glucose POC Glucose Lactic Acid Calcium 8.3 L CK-MB (CK-2) CK-MB (CK-2) Rel Index Troponin T Serum Total Protein Albumin Uhion-1-Himmenvwq PEP Interpretation Triglycerides Cholesterol LDL Cholesterol Direct Urine WBC (Auto) Urine Creatinine Salicylates Acetaminophen 09/23/18 09/23/18 09/23/18 05:32 16:00 16:00 RBC Hgb Hct Lymph % (Auto) Gillespie % (Auto) Lymph # Gillespie # Seg Neutrophils % D-Dimer POC ABG pH POC ABG pCO2 POC ABG pO2 Sodium Potassium Chloride Carbon Dioxide BUN Creatinine Glucose POC Glucose Lactic Acid Calcium CK-MB (CK-2) CK-MB (CK-2) Rel Index Troponin T Serum Total Protein 5.2 L Albumin 2.5 L Rpakh-0-Jetkyxzto 0.4 H PEP Interpretation see below H Triglycerides Cholesterol LDL Cholesterol Direct Urine WBC (Auto) 13.0 H Urine Creatinine 80.7 H Salicylates Acetaminophen 09/23/18 09/23/18 09/24/18 18:47 23:53 04:28 RBC 2.66 L Hgb 7.6 L Hct 22.5 L Lymph % (Auto) Gillespie % (Auto) Lymph # Gillespie # Seg Neutrophils % D-Dimer POC ABG pH POC ABG pCO2 POC ABG pO2 Sodium Potassium Chloride Carbon Dioxide BUN Creatinine Glucose POC Glucose 115 H 145 H Lactic Acid Calcium CK-MB (CK-2) CK-MB (CK-2) Rel Index Troponin T Serum Total Protein Albumin Chehr-0-Fjuacaugy PEP Interpretation Triglycerides Cholesterol LDL Cholesterol Direct Urine WBC (Auto) Urine Creatinine Salicylates Acetaminophen 09/24/18 09/24/18 09/24/18 04:28 04:56 05:33 RBC Hgb Hct Lymph % (Auto) Gillespie % (Auto) Lymph # Gillespie # Seg Neutrophils % D-Dimer POC ABG pH 7.551 H POC ABG pCO2 32.0 L POC ABG pO2 133 H Sodium Potassium Chloride Carbon Dioxide BUN 27 H Creatinine 4.8 H Glucose 129 H POC Glucose 127 H Lactic Acid Calcium 8.0 L CK-MB (CK-2) CK-MB (CK-2) Rel Index Troponin T Serum Total Protein Albumin Gyyba-8-Mjaakyotp PEP Interpretation Triglycerides Cholesterol LDL Cholesterol Direct Urine WBC (Auto) Urine Creatinine Salicylates Acetaminophen 09/24/18 09/24/18 09/24/18 12:39 19:57 23:53 RBC Hgb Hct Lymph % (Auto) Gillespie % (Auto) Lymph # Gillespie # Seg Neutrophils % D-Dimer POC ABG pH POC ABG pCO2 POC ABG pO2 Sodium Potassium Chloride Carbon Dioxide BUN Creatinine Glucose POC Glucose 171 H 209 H 158 H Lactic Acid Calcium CK-MB (CK-2) CK-MB (CK-2) Rel Index Troponin T Serum Total Protein Albumin Qcreb-0-Purnqdtjr PEP Interpretation Triglycerides Cholesterol LDL Cholesterol Direct Urine WBC (Auto) Urine Creatinine Salicylates Acetaminophen 09/25/18 09/25/18 09/25/18 04:06 04:06 05:16 RBC 2.73 L Hgb 7.9 L Hct 23.4 L Lymph % (Auto) Gillespie % (Auto) Lymph # Gillespie # Seg Neutrophils % D-Dimer POC ABG pH 7.477 H POC ABG pCO2 POC ABG pO2 122 H Sodium Potassium Chloride 97.2 L Carbon Dioxide BUN Creatinine 3.6 H Glucose 118 H POC Glucose Lactic Acid Calcium 8.2 L CK-MB (CK-2) CK-MB (CK-2) Rel Index Troponin T Serum Total Protein Albumin Nvvht-7-Seoqfwgch PEP Interpretation Triglycerides Cholesterol LDL Cholesterol Direct Urine WBC (Auto) Urine Creatinine Salicylates Acetaminophen 09/25/18 09/25/18 09/25/18 05:55 12:29 16:21 RBC Hgb Hct Lymph % (Auto) Gillespie % (Auto) Lymph # Gillespie # Seg Neutrophils % D-Dimer POC ABG pH 7.216 L POC ABG pCO2 79.9 H POC ABG pO2 Sodium Potassium Chloride Carbon Dioxide BUN Creatinine Glucose POC Glucose 144 H 128 H Lactic Acid Calcium CK-MB (CK-2) CK-MB (CK-2) Rel Index Troponin T Serum Total Protein Albumin Yppsb-0-Dvsphfvnd PEP Interpretation Triglycerides Cholesterol LDL Cholesterol Direct Urine WBC (Auto) Urine Creatinine Salicylates Acetaminophen 09/25/18 09/25/18 09/25/18 18:27 18:44 23:56 RBC Hgb Hct Lymph % (Auto) Gillespie % (Auto) Lymph # Gillespie # Seg Neutrophils % D-Dimer POC ABG pH POC ABG pCO2 53.2 H POC ABG pO2 78 L Sodium Potassium Chloride Carbon Dioxide BUN Creatinine Glucose POC Glucose 264 H 170 H Lactic Acid Calcium CK-MB (CK-2) CK-MB (CK-2) Rel Index Troponin T Serum Total Protein Albumin Ycrmb-4-Ekgyrigvq PEP Interpretation Triglycerides Cholesterol LDL Cholesterol Direct Urine WBC (Auto) Urine Creatinine Salicylates Acetaminophen 09/26/18 09/26/18 09/26/18 03:46 04:51 05:04 RBC Hgb Hct Lymph % (Auto) Gillespie % (Auto) Lymph # Gillespie # Seg Neutrophils % D-Dimer POC ABG pH 7.584 H POC ABG pCO2 30.9 L POC ABG pO2 151 H Sodium Potassium Chloride 95.5 L Carbon Dioxide BUN 34 H Creatinine 5.4 H Glucose 185 H POC Glucose 186 H Lactic Acid Calcium CK-MB (CK-2) CK-MB (CK-2) Rel Index Troponin T Serum Total Protein Albumin Xepsg-3-Ltceqwtrz PEP Interpretation Triglycerides Cholesterol LDL Cholesterol Direct Urine WBC (Auto) Urine Creatinine Salicylates Acetaminophen 09/26/18 09/26/18 09/26/18 06:23 12:41 17:55 RBC Hgb Hct Lymph % (Auto) Gillespie % (Auto) Lymph # Gillespie # Seg Neutrophils % D-Dimer POC ABG pH 7.330 L POC ABG pCO2 49.9 H POC ABG pO2 Sodium Potassium Chloride Carbon Dioxide BUN Creatinine Glucose POC Glucose 182 H 171 H Lactic Acid Calcium CK-MB (CK-2) CK-MB (CK-2) Rel Index Troponin T Serum Total Protein Albumin Uupxc-4-Nnfpjpziq PEP Interpretation Triglycerides Cholesterol LDL Cholesterol Direct Urine WBC (Auto) Urine Creatinine Salicylates Acetaminophen 09/27/18 09/27/18 09/27/18 00:06 05:11 05:36 RBC Hgb Hct Lymph % (Auto) Gillespie % (Auto) Lymph # Gillespie # Seg Neutrophils % D-Dimer POC ABG pH POC ABG pCO2 POC ABG pO2 136 H Sodium Potassium Chloride Carbon Dioxide BUN Creatinine Glucose POC Glucose 170 H 115 H Lactic Acid Calcium CK-MB (CK-2) CK-MB (CK-2) Rel Index Troponin T Serum Total Protein Albumin Utleu-1-Mazgbtklh PEP Interpretation Triglycerides Cholesterol LDL Cholesterol Direct Urine WBC (Auto) Urine Creatinine Salicylates Acetaminophen 09/27/18 09/27/18 09/27/18 06:05 11:51 18:17 RBC Hgb Hct Lymph % (Auto) Gillespie % (Auto) Lymph # Gillespie # Seg Neutrophils % D-Dimer POC ABG pH POC ABG pCO2 POC ABG pO2 Sodium Potassium Chloride 95.0 L Carbon Dioxide BUN 39 H Creatinine 5.1 H Glucose 145 H POC Glucose 181 H 214 H Lactic Acid Calcium CK-MB (CK-2) CK-MB (CK-2) Rel Index Troponin T Serum Total Protein Albumin Qpiwt-3-Mbzrjyemj PEP Interpretation Triglycerides Cholesterol LDL Cholesterol Direct Urine WBC (Auto) Urine Creatinine Salicylates Acetaminophen 09/27/18 09/28/18 09/28/18 23:28 04:39 04:44 RBC Hgb Hct Lymph % (Auto) Gillespie % (Auto) Lymph # Gillespie # Seg Neutrophils % D-Dimer POC ABG pH POC ABG pCO2 POC ABG pO2 151 H Sodium 134 L Potassium Chloride 95.2 L Carbon Dioxide BUN 61 H Creatinine 7.2 H Glucose 165 H POC Glucose 127 H Lactic Acid Calcium 8.0 L CK-MB (CK-2) CK-MB (CK-2) Rel Index Troponin T Serum Total Protein Albumin Uajub-7-Wuigkbnoi PEP Interpretation Triglycerides Cholesterol LDL Cholesterol Direct Urine WBC (Auto) Urine Creatinine Salicylates Acetaminophen 09/28/18 05:47 RBC Hgb Hct Lymph % (Auto) Gillespie % (Auto) Lymph # Gillespie # Seg Neutrophils % D-Dimer POC ABG pH POC ABG pCO2 POC ABG pO2 Sodium Potassium Chloride Carbon Dioxide BUN Creatinine Glucose POC Glucose 159 H Lactic Acid Calcium CK-MB (CK-2) CK-MB (CK-2) Rel Index Troponin T Serum Total Protein Albumin Gxfnf-2-Faucuzohl PEP Interpretation Triglycerides Cholesterol LDL Cholesterol Direct Urine WBC (Auto) Urine Creatinine Salicylates Acetaminophen
--- NOTE | 2018-09-28 09:42 | Progress Note ---
Subjective Principal diagnosis: acute respiratory failure, end-stage renal disease, AMS Interval history: Patient was seen today for follow-up on multiple renal related issues She is being dialyzed 3 times a week Blood pressure remains elevated Currently intubated multiple family members at bedside past medical history:: Reviewed Allergies: Reviewed Family history: Reviewed Physical examination HEENT: Oral mucosa moist, oraly intubated Neck: Supple no JVD Chest: Clear to auscultation anteriorly CVS: Regular rate and rhythm S1 and S2 heard Abdomen: Soft nontender no suprapubic masses no organomegaly appreciable Extremity: Dry skin less than 1+ peripheral edema Musculoskeletal: No joint effusion noted in knees and ankle Dermatology: No petechial rashes Psychiatry: No evidence of any agitation and aggression noted Assessment and plan Chronic kidney disease currently on maintenance hemodialysis Saturday patient has been felt to be end-stage renal disease currently being dialyzed through a central venous catheter, patient will likely require a permacath placement Patient may need to increase dialysis treatment time Anemia with renal failure follow-up in hemoglobin likely will require workup Erythropoietin periodically, Accelerated hypertension: We'll discontinue labetalol start the patient on clonidine Respiratory failure, pneumonia, fluid overload currently on ventilator Hyperkalemia currently doing much better Chest x-ray obtained the today shows evidence of left lower lobe atelectasis, Interdisciplinary Notes reviewed Prognosis guarded to poor at this time due to age ultimate goal comorbidities We'll continue to follow and make recommendation from renal standpoint Objective - Vital Signs Vital signs: Vital Signs - 12hr 09/27/18 09/27/18 09/27/18 21:45 21:48 21:49 Temperature Pulse Rate 90 93 H 103 H Pulse Rate [ From Monitor] Pulse Rate [ Left Dorsalis Pedis] Pulse Rate [ Right Dorsalis Pedis] Respiratory 16 Rate Blood Pressure 175/56 175/56 O2 Sat by Pulse 100 Oximetry 09/27/18 09/27/18 09/27/18 21:50 22:00 22:16 Temperature Pulse Rate 87 93 H 82 Pulse Rate [ From Monitor] Pulse Rate [ Left Dorsalis Pedis] Pulse Rate [ Right Dorsalis Pedis] Respiratory 16 16 16 Rate Blood Pressure 175/56 172/62 138/53 O2 Sat by Pulse 100 100 100 Oximetry 09/27/18 09/27/18 09/27/18 22:30 22:45 23:00 Temperature Pulse Rate 78 87 85 Pulse Rate [ From Monitor] Pulse Rate [ Left Dorsalis Pedis] Pulse Rate [ Right Dorsalis Pedis] Respiratory 16 16 16 Rate Blood Pressure 138/53 131/56 137/65 O2 Sat by Pulse 100 100 100 Oximetry 09/27/18 09/27/18 09/27/18 23:15 23:30 23:45 Temperature Pulse Rate 78 77 86 Pulse Rate [ From Monitor] Pulse Rate [ Left Dorsalis Pedis] Pulse Rate [ Right Dorsalis Pedis] Respiratory 16 16 18 Rate Blood Pressure 140/59 150/60 158/62 O2 Sat by Pulse 100 100 100 Oximetry 09/28/18 09/28/18 09/28/18 00:00 00:15 00:30 Temperature 98.9 F Pulse Rate 74 73 73 Pulse Rate [ 72 From Monitor] Pulse Rate [ Left Dorsalis Pedis] Pulse Rate [ 72 Right Dorsalis Pedis] Respiratory 21 16 16 Rate Blood Pressure 141/57 136/60 136/60 O2 Sat by Pulse 100 100 100 Oximetry 09/28/18 09/28/18 09/28/18 00:45 01:00 01:15 Temperature Pulse Rate 75 97 H 75 Pulse Rate [ From Monitor] Pulse Rate [ Left Dorsalis Pedis] Pulse Rate [ Right Dorsalis Pedis] Respiratory 16 16 17 Rate Blood Pressure 113/52 156/78 145/57 O2 Sat by Pulse 100 100 100 Oximetry 09/28/18 09/28/18 09/28/18 01:30 01:45 02:00 Temperature Pulse Rate 72 74 74 Pulse Rate [ From Monitor] Pulse Rate [ Left Dorsalis Pedis] Pulse Rate [ Right Dorsalis Pedis] Respiratory 16 16 16 Rate Blood Pressure 134/54 120/50 126/52 O2 Sat by Pulse 100 100 100 Oximetry 09/28/18 09/28/18 09/28/18 02:15 02:30 02:45 Temperature Pulse Rate 73 75 70 Pulse Rate [ From Monitor] Pulse Rate [ Left Dorsalis Pedis] Pulse Rate [ Right Dorsalis Pedis] Respiratory 16 17 16 Rate Blood Pressure 127/54 132/52 123/51 O2 Sat by Pulse 100 100 100 Oximetry 09/28/18 09/28/18 09/28/18 03:00 03:16 03:30 Temperature Pulse Rate 73 100 H 118 H Pulse Rate [ From Monitor] Pulse Rate [ Left Dorsalis Pedis] Pulse Rate [ Right Dorsalis Pedis] Respiratory 16 16 20 Rate Blood Pressure 127/51 176/81 175/115 O2 Sat by Pulse 100 99 100 Oximetry 09/28/18 09/28/18 09/28/18 03:45 03:48 03:52 Temperature Pulse Rate 72 70 Pulse Rate [ 68 From Monitor] Pulse Rate [ Left Dorsalis Pedis] Pulse Rate [ 68 Right Dorsalis Pedis] Respiratory 19 19 Rate Blood Pressure 163/51 163/51 O2 Sat by Pulse 100 100 100 Oximetry 09/28/18 09/28/18 09/28/18 04:00 04:15 04:22 Temperature 98.8 F Pulse Rate 67 69 Pulse Rate [ From Monitor] Pulse Rate [ Left Dorsalis Pedis] Pulse Rate [ Right Dorsalis Pedis] Respiratory 18 18 Rate Blood Pressure 133/46 124/43 O2 Sat by Pulse 100 100 Oximetry 09/28/18 09/28/18 09/28/18 04:30 04:46 05:00 Temperature Pulse Rate 68 72 72 Pulse Rate [ From Monitor] Pulse Rate [ Left Dorsalis Pedis] Pulse Rate [ Right Dorsalis Pedis] Respiratory 17 18 16 Rate Blood Pressure 115/39 139/46 139/46 O2 Sat by Pulse 100 100 100 Oximetry 09/28/18 09/28/18 09/28/18 05:15 05:30 05:45 Temperature Pulse Rate 75 73 72 Pulse Rate [ From Monitor] Pulse Rate [ Left Dorsalis Pedis] Pulse Rate [ Right Dorsalis Pedis] Respiratory 18 18 18 Rate Blood Pressure 124/45 114/42 117/42 O2 Sat by Pulse 99 99 100 Oximetry 09/28/18 09/28/18 09/28/18 06:00 06:15 06:30 Temperature Pulse Rate 72 73 77 Pulse Rate [ From Monitor] Pulse Rate [ Left Dorsalis Pedis] Pulse Rate [ Right Dorsalis Pedis] Respiratory 18 17 17 Rate Blood Pressure 120/40 116/45 114/43 O2 Sat by Pulse 100 99 99 Oximetry 09/28/18 09/28/18 09/28/18 06:46 07:00 07:15 Temperature Pulse Rate 72 74 72 Pulse Rate [ From Monitor] Pulse Rate [ Left Dorsalis Pedis] Pulse Rate [ Right Dorsalis Pedis] Respiratory 18 16 19 Rate Blood Pressure 111/45 126/55 123/49 O2 Sat by Pulse 100 99 99 Oximetry 09/28/18 09/28/18 09/28/18 07:30 07:42 07:46 Temperature Pulse Rate 69 74 108 H Pulse Rate [ From Monitor] Pulse Rate [ Left Dorsalis Pedis] Pulse Rate [ Right Dorsalis Pedis] Respiratory 18 20 26 H Rate Blood Pressure 125/45 125/45 176/53 O2 Sat by Pulse 100 100 100 Oximetry 09/28/18 09/28/18 09/28/18 08:00 08:16 08:30 Temperature Pulse Rate 83 100 H 82 Pulse Rate [ 96 H From Monitor] Pulse Rate [ 96 H Left Dorsalis Pedis] Pulse Rate [ 96 H Right Dorsalis Pedis] Respiratory 20 25 H 21 Rate Blood Pressure 176/53 187/61 187/61 O2 Sat by Pulse 100 100 100 Oximetry 09/28/18 09/28/18 08:46 09:00 Temperature Pulse Rate 84 104 H Pulse Rate [ From Monitor] Pulse Rate [ Left Dorsalis Pedis] Pulse Rate [ Right Dorsalis Pedis] Respiratory 18 22 Rate Blood Pressure 166/61 166/61 O2 Sat by Pulse 100 100 Oximetry - Lab 09/25/18 04:06 09/28/18 04:39 Most recent lab results Calcium 8.0 mg/dL (8.4-10.2) L 09/28/18 04:39 Urine Creatinine 80.7 mg/dL (0.1-20.0) H 09/23/18 16:00 Urine Sodium 66 mmol/L 09/23/18 16:00 Medications & Allergies - Medications Allergies/Adverse Reactions: Allergies codeine Adverse Reaction (Verified 09/23/18 10:09) Unknown Home Medications: Home Medications Medication Instructions Recorded Confirmed Last Taken Type ALBUTEROL NEB's [Proventil 0.083% 2.5 mg INHALATION Q6H PRN 09/25/18 09/25/18 Unknown History NEBS] Carvedilol 25 mg PO Q12H 09/25/18 09/25/18 Unknown History Clonidine 0.2 mg PO BID 09/25/18 09/25/18 Unknown History Doxazosin 2 mg PO DAILY 09/25/18 09/25/18 Unknown History Dss 100 mg PO BID 09/25/18 09/25/18 Unknown History Fluticasone [Flonase] 1 spray INNOSTRIL DAILY 09/25/18 09/25/18 Unknown History Insulin NPH/Regular [Novolin 70/30] 20 unit SQ DAILY 09/25/18 09/25/18 Unknown History Isosorbide Mononitrate 30 mg PO DAILY 09/25/18 09/25/18 Unknown History NIFEdipine [Nifedipine ER] 60 mg PO BID 09/25/18 09/25/18 Unknown History Sevelamer Carbonate 1 tab PO TID 09/25/18 09/25/18 Unknown History Simvastatin [Zocor] 1 tab PO DAILY 09/25/18 09/25/18 Unknown History Torsemide [Demadex] 0.5 tab PO DAILY 09/25/18 09/25/18 Unknown History hydrALAZINE 100 mg PO Q8H 09/25/18 09/25/18 Unknown History Active Medications: Generic Name Dose Route Start Last Admin Trade Name Freq PRN Reason Stop Dose Admin Acetaminophen 650 mg 09/22/18 04:14 09/26/18 03:56 Tylenol PO 650 mg Q4H PRN Administration Pain MILD(1-3)/Fever >100.5/MEJIA Lipase/Protease/Amylase 1 each 09/23/18 13:[address] 10,500 Unit FEEDTUBE PRN PRN For Clogged Feeding Tube Dextrose 50 ml 09/22/18 04:14 D50w (25gm) Syringe IV PRN PRN Hypoglycemia Enoxaparin Sodium 30 mg 09/22/18 10:00 09/27/18 10:28 Lovenox SUB-Q 30 mg QDAY KAILA Administration Epinephrine 0.5 ml 09/25/18 12:52 S2 Racepinephrine 2.25% IH Q4HRT PRN stridor Famotidine 20 mg 09/22/18 10:00 09/27/18 10:27 Pepcid IV 20 mg DAILY KAILA Administration Fentanyl 50 mcg 09/28/18 09:23 Sublimaze IV Q2H PRN MOUTH PAIN Haloperidol Lactate 5 mg 09/28/18 10:00 Haldol IV Q6H KAILA Hydralazine HCl 10 mg 09/22/18 19:30 09/27/18 06:40 Apresoline IV 10 mg Q4HR PRN Administration SBP>160 Hydralazine HCl 100 mg 09/26/18 14:00 09/28/18 08:44 Apresoline PO 100 mg TID KAILA Administration Sodium Chloride 100 mls @ 999 mls/hr 09/25/18 09:59 Nacl 0.9% IV CAROLINE PRN Hypotension Dexmedetomidine HCl 200 mcg/ 50 mls @ 3.63 mls/hr 09/28/18 10:00 Sodium Chloride IV TITRATE [facility] Protocol 0.2 MCG/KG/HR Insulin Human Lispro 0 unit 09/22/18 06:00 09/28/18 00:00 Humalog SUB-Q Not Given Q6HR [facility] Protocol Isosorbide Mononitrate 30 mg 09/27/18 13:00 09/27/18 13:40 Imdur PO 30 mg QDAY KAILA Administration Labetalol HCl 200 mg 09/27/18 22:00 09/27/18 21:48 Normodyne PO 200 mg BID KAILA Administration Lorazepam 1 mg 09/23/18 10:06 09/28/18 02:35 Ativan IV 1 mg Q4H PRN Administration Agitation Simple Syrup 15 ml 09/23/18 13:57 Simple Syrup FEEDTUBE PRN PRN Hypoglycemia Simple Syrup 30 ml 09/23/18 13:57 Simple Syrup FEEDTUBE PRN PRN Hypoglycemia Sodium Bicarbonate 325 mg 09/23/18 13:57 Sodium Bicarbonate FEEDTUBE PRN PRN For Clogged Feeding Tube Sodium Chloride 10 ml 09/22/18 10:00 09/27/18 22:00 Sodium Chloride Flush Syringe 10 Ml IV 10 ml BID KAILA Administration Sodium Chloride 10 ml 09/22/18 04:14 Sodium Chloride Flush Syringe 10 Ml IV PRN PRN LINE FLUSH
[2018-09-28] MEDS: LOVENOX SUB-Q SCH (09:55)
[2018-09-28] MEDS: HALDOL IV SCH ×3 (09:55→21:16)
[2018-09-28] MEDS: PEPCID IV SCH (09:55)
[2018-09-28] MEDS: IMDUR PO SCH (09:55)
[2018-09-28] MEDS ORDERED: HALDOL IV SCH (10:00)
[2018-09-28] MEDS: DEXMEDETOMIDINE 200 MCG in NACL 0.9% 48 ML IV SCH ×2 (10:19→16:50)
[2018-09-28] MEDS: CATAPRES-TTS PATCH TD SCH (12:02)
[2018-09-28] MEDS: SODIUM CHLORIDE FLUSH SYRINGE 10 ML IV SCH ×2 (12:05→23:55)
--- NOTE | 2018-09-28 13:05 | Progress Note ---
Assessment and Plan Assessment and plan: The high probability of a clinically significant, sudden or life threatening deterioration of the [] system(s) required my full and direct attention, intervention and personal management. The aggregate critical care time was [] minutes. This time is in addition to time spent performing reported procedures but includes the following: [x] Data Review and interpretation [x] Patient assessment and monitoring of vital signs [x] Documentation [x] Medication orders and management - Patient Problems (1) Acute respiratory failure Current Visit: Yes Status: Acute Plan to address problem: Acute respiratory failure seems to be a little more alert today. Currently weaning patient off of fentanyl and propofol and attempts to extubate soon. Agree with possibility of anoxia again hopefully not severe enough to affect quality of life too much. EEG should be helpful. Also will benefit from further evaluation after extubation. (2) Elevated troponin Current Visit: Yes Status: Acute Plan to address problem: Elevated troponin non-STEMI2. Aspirin beta lou continue current anticoagulation cardiology following. (3) Pneumonia Current Visit: Yes Status: Acute Qualifiers: Pneumonia type: due to unspecified organism Laterality: unspecified laterality Lung location: unspecified part of lung Qualified Code(s): J18.9 - Pneumonia, unspecified organism Plan to address problem: Patient with possible aspiration pneumonia currently not receiving any antibiotics at this time.. Recent culture data unremarkable. Has remained afebrile and no leukocytosis. We'll observe closely because of high risk of aspiration. Left lower lobe atelectasis seems to be secondary to volume. (4) Respiratory failure Current Visit: Yes Status: Acute Qualifiers: Chronicity: acute Respiratory failure complication: hypoxia Qualified Code(s): J96.01 - Acute respiratory failure with hypoxia Plan to address problem: Again pending weaning and extubation. (5) CKD (chronic kidney disease) Current Visit: Yes Status: Chronic Qualifiers: Chronic kidney disease stage: unspecified stage Qualified Code(s): N18.9 - Chronic kidney disease, unspecified Plan to address problem: Chronic kidney disease continue hemodialysis tolerated Saturday. (6) Diabetes Current Visit: Yes Status: Chronic Plan to address problem: At present has fair control diabetes with sliding scale. We'll consider adding long-acting insulin may be 5 mg of Lantus daily at bedtime and titrate accordingly. (7) Hypertension Current Visit: Yes Status: Chronic Qualifiers: Hypertension type: essential hypertension Qualified Code(s): I10 - Essential (primary) hypertension Plan to address problem: Blood pressure much better controlled today. (8) Type 2 diabetes mellitus Current Visit: Yes Status: Chronic History Interval history: At present patient remains intubated. Less sedated than yesterday. Patient was able to track me with eyes attempted response and then lay back down. Hospital course complicated today by left lower lobe atelectasis. Blood pressure seems to be much better controlled at this time. Throughout initial evaluation today anoxia is a real concern. Should benefit from EEG and extubation. Patient was able to track me with attempts to verbalize. Suspect anoxia but hopefully not severe enough to affect quality of life too much. Hospitalist Physical - Constitutional Vitals: Temp Pulse Resp BP Pulse Ox 98.7 F 88 18 132/48 99 09/28/18 12:49 09/28/18 12:19 09/28/18 12:19 09/28/18 12:19 09/28/18 12:19 General appearance: Present: no acute distress, mild distress, other (intubated, sedated) - EENT Eyes: Present: PERRL - Respiratory Respiratory: bilateral: diminished, rhonchi - Cardiovascular Rhythm: regular - Extremities Extremities: pulses intact, pulses symmetrical, No edema, normal temperature, normal color Peripheral Pulses: abnormal - Abdominal General gastrointestinal: soft, non-tender, non-distended, hypoactive bowel sounds - Integumentary Integumentary: Present: clear, warm, dry - Allied Health Allied health notes reviewed: nursing Results - Labs CBC & Chem 7: 09/25/18 04:06 09/28/18 04:39 Labs: Laboratory Last Values WBC 8.9 K/mm3 (4.5-11.0) 09/25/18 04:06 RBC 2.73 M/mm3 (3.65-5.03) L 09/25/18 04:06 Hgb 7.9 gm/dl (10.1-14.3) L 09/25/18 04:06 Hct 23.4 % (30.3-42.9) L 09/25/18 04:06 MCV 86 fl (79-97) 09/25/18 04:06 MCH 29 pg (28-32) 09/25/18 04:06 MCHC 34 % (30-34) 09/25/18 04:06 RDW 14.6 % (13.2-15.2) 09/25/18 04:06 Plt Count 173 K/mm3 (140-440) 09/25/18 04:06 Lymph % (Auto) 16.7 % (13.4-35.0) 09/23/18 04:24 [place] % (Auto) 12.6 % (0.0-7.3) H 09/23/18 04:24 Eos % (Auto) 3.5 % (0.0-4.3) 09/23/18 04:24 Baso % (Auto) 1.5 % (0.0-1.8) 09/23/18 04:24 Lymph # 1.4 K/mm3 (1.2-5.4) 09/23/18 04:24 [place] # 1.1 K/mm3 (0.0-0.8) H 09/23/18 04:24 Eos # 0.3 K/mm3 (0.0-0.4) 09/23/18 04:24 Baso # 0.1 K/mm3 (0.0-0.1) 09/23/18 04:24 Seg Neutrophils % 65.7 % (40.0-70.0) 09/23/18 04:24 Seg Neutrophils # 5.5 K/mm3 (1.8-7.7) 09/23/18 04:24 D-Dimer 4401.15 ng/mlDDU (0-234) H 09/21/18 22:56 POC ABG pH 7.403 (7.35-7.45) 09/28/18 04:44 POC ABG pCO2 42.8 (35-45) 09/28/18 04:44 POC ABG pO2 151 (80-105) H 09/28/18 04:44 POC ABG HCO3 26.7 09/28/18 04:44 POC ABG Total CO2 28 09/28/18 04:44 POC ABG O2 Sat 99 09/28/18 04:44 POC ABG Base Excess 2 09/28/18 04:44 FiO2 35 % 09/28/18 04:44 Sodium 134 mmol/L (137-145) L 09/28/18 04:39 Potassium 4.3 mmol/L (3.6-5.0) 09/28/18 04:39 Chloride 95.2 mmol/L (98-107) L 09/28/18 04:39 Carbon Dioxide 24 mmol/L (22-30) 09/28/18 04:39 Anion Gap 19 mmol/L 09/28/18 04:39 BUN 61 mg/dL (7-17) H 09/28/18 04:39 Creatinine 7.2 mg/dL (0.7-1.2) H 09/28/18 04:39 Estimated GFR 7 ml/min 09/28/18 04:39 BUN/Creatinine Ratio 8 % 09/28/18 04:39 Glucose 165 mg/dL (65-100) H 09/28/18 04:39 POC Glucose 240 (70-105) H 09/28/18 11:36 Lactic Acid 1.70 mmol/L (0.7-2.0) 09/22/18 04:50 Calcium 8.0 mg/dL (8.4-10.2) L 09/28/18 04:39 Total Bilirubin 0.20 mg/dL (0.1-1.2) 09/21/18 22:56 AST 17 units/L (5-40) 09/21/18 22:56 ALT 9 units/L (7-56) 09/21/18 22:56 Alkaline Phosphatase 86 units/L (35-129) 09/21/18 22:56 Ammonia 57.0 umol/L (25-60) 09/21/18 22:56 Total Creatine Kinase 81 units/L (30-135) 09/22/18 10:26 CK-MB (CK-2) 3.1 ng/mL (0.0-4.0) 09/22/18 10:26 CK-MB (CK-2) Rel Index 3.8 (0-4) 09/22/18 10:26 Troponin T 0.074 ng/mL (0.00-0.029) H D 09/22/18 10:26 Serum Total Protein 5.2 g/dL (6.1-8.1) L 09/23/18 05:32 Total Protein 6.5 g/dL (6.3-8.2) 09/21/18 22:56 Albumin 2.5 g/dL (3.8-4.8) L 09/23/18 05:32 Albumin/Globulin Ratio 1.2 % 09/21/18 22:56 Cmhcb-7-Zadevwneq 0.4 g/dL (0.2-0.3) H 09/23/18 05:32 Hontn-2-Yabpxqkkv 0.8 g/dL (0.5-0.9) 09/23/18 05:32 Beta Globulins 0.4 g/dL (0.2-0.5) 09/23/18 05:32 Gamma Globulins 0.9 g/dL (0.8-1.7) 09/23/18 05:32 Abnorm Protein Band 1 see below 09/23/18 05:32 PEP Interpretation see below H 09/23/18 05:32 Triglycerides 208 mg/dL (2-149) H 09/21/18 23:57 Cholesterol 206 mg/dL (50-199) H 09/21/18 23:57 LDL Cholesterol Direct 143 mg/dL (50-130) H 09/21/18 23:57 HDL Cholesterol 40 mg/dL (40-59) 09/21/18 23:57 Cholesterol/HDL Ratio 5.15 % 09/21/18 23:57 Urine Color Yellow (Yellow) 09/23/18 16:00 Urine Turbidity Clear (Clear) 09/23/18 16:00 Urine pH 7.0 (5.0-7.0) 09/23/18 16:00 Ur Specific [place] 1.009 (1.003-1.030) 09/23/18 16:00 Urine Protein >500 mg/dL (Negative) 09/23/18 16:00 Urine Glucose (UA) 50 mg/dL (Negative) 09/23/18 16:00 Urine Ketones Neg mg/dL (Negative) 09/23/18 16:00 Urine Blood Neg (Negative) 09/23/18 16:00 Urine Nitrite Neg (Negative) 09/23/18 16:00 Urine Bilirubin Neg (Negative) 09/23/18 16:00 Urine Urobilinogen < 2.0 mg/dL (<2.0) 09/23/18 16:00 Ur Leukocyte Esterase Sm (Negative) 09/23/18 16:00 Urine WBC (Auto) 13.0 /HPF (0.0-6.0) H 09/23/18 16:00 Urine RBC (Auto) 1.0 /HPF (0.0-6.0) 09/23/18 16:00 U Epithel Cells (Auto) < 1.0 /HPF (0-13.0) 09/23/18 16:00 Urine Bacteria (Auto) 1+ /HPF (Negative) 09/23/18 16:00 Hyaline Casts 3 /LPF 09/23/18 16:00 Urine Mucus Few /HPF 09/23/18 16:00 Urine Eosinophils None seen (None Seen) 09/22/18 16:00 Urine Creatinine 80.7 mg/dL (0.1-20.0) H 09/23/18 16:00 Urine Sodium 66 mmol/L 09/23/18 16:00 Fraction Sodium Excret 3.6 09/23/18 16:00 Salicylates < 0.3 mg/dL (2.8-20.0) L 09/21/18 22:56 Acetaminophen < 5.0 ug/mL (10.0-30.0) L 09/21/18 22:56 Plasma/Serum Alcohol < 0.01 % (0-0.07) 09/21/18 22:56 AGATA Screen Negative (Negative) 09/22/18 18:06 Proteinase 3 (PR3) Ab <1.0 AI (<1.0) 09/22/18 18:06 Myeloperoxidase Ab <1.0 AI (<1.0) 09/22/18 18:06 Double Strand DNA Ab 1 IU/mL (<=4) 09/22/18 18:06 Complement C3 113 mg/dL (83-193) 09/22/18 18:06 Complement C4 57 mg/dL (15-57) 09/22/18 18:06 Hepatitis A IgM Ab Non-reactive (NonReactive) 09/22/18 18:06 Hep Bs Antigen Non-reactive (Negative) 09/22/18 18:06 Hep B Core IgM Ab Non-reactive (NonReactive) 09/22/18 18:06 Hepatitis C Antibody Non-reactive (NonReactive) 09/22/18 18:06 - Imaging and Cardiology Chest x-ray: report reviewed, image reviewed Nutrition/Malnutrition Assess - Dietary Evaluation Nutrition/Malnutrition Findings: Nutrition Notes Start: 09/23/18 13:24 Freq: Status: Active Protocol: Document 09/26/18 11:08 TW (Rec: 09/26/18 11:19 TW [id number]) Co-Sign 09/26/18 11:08 OL Nutrition Notes Initial or Follow up Reassessment Current Diagnosis CKD(stage I-IV) Diabetes Sepsis Hypertension Heart Failure Respiratory Failure Other Pertinent Diagnosis AMS, pneumonia Current Diet TF Labs/Tests BUN 34 Cr 5.4 BG 185 Pertinent Medications Reviewed Height 5 ft 3 in Weight 72.6 kg [place] Body Weight (kg) 52.27 BMI 28.3 Subjective/Other Information F/U for reinserted dobhoff/ TF restart. Per RN, pt is currently in HD. RN reports that TF will restart after HD and tolerance will be monitered. Percent of energy/protein needs met: 0%/0% Burn Absent Trauma Absent Current % PO Negligible #1 Nutrition Diagnosis Inadequate oral intake Diagnosis Progress(for reassessment Continues documentation) Is patient on ventilator? Yes Is Patient Ambulatory and/or Out of Bed No REE-([place]-[facility] Jeor-confined to bed) [phone] [facility] Additional Notes pro 89-148g/day (1.2-2g/kg) fluid 1ml/kcal or per MD order Nutrition Intervention Change Diet Order: Continue TF Nutrition Support: Nepro 1.8 at 35ml/hr Water flush of 150 ml q4h or per MD order Kcal 1,512 Protein (gm) 68 Fluid (mL) 610 Goal #1 TF restart Goal #2 TF tolerance Anticipated Discharge Needs: Unable to determine Follow-Up By: 09/29/18 Additional Comments F/U: TF restart/ tolerance
[2018-09-28] MEDS: LANTUS SUB-Q SCH (21:17)
[2018-09-28] MEDS: APRESOLINE IV PRN (21:30)
[2018-09-29] MEDS: HumaLOG SUB-Q SCH ×4 (02:17→18:31)
[2018-09-29] MEDS: HALDOL IV SCH ×4 (03:50→23:20)
[2018-09-29] MEDS: DEXMEDETOMIDINE 200 MCG in NACL 0.9% 48 ML IV SCH ×3 (08:46→23:28)
[2018-09-29] MEDS: APRESOLINE PO SCH ×4 (08:46→20:33)
--- NOTE | 2018-09-29 08:57 | Progress Note ---
Subjective Principal diagnosis: acute respiratory failure, end-stage renal disease, AMS Interval history: Patient was seen today for follow-up on multiple renal related issues She for dialysis today Reviewed her labs Blood pressure is on the low normal side past medical history:: Reviewed Allergies: Reviewed Family history: Reviewed Physical examination HEENT: Oral mucosa moist Neck: Supple no JVD Chest: Clear to auscultation anteriorly CVS: Regular rate and rhythm S1 and S2 heard Abdomen: Soft nontender no suprapubic masses no organomegaly appreciable Extremity: Dry skin less than 1+ peripheral edema Musculoskeletal: No joint effusion noted in knees and ankle Neurological: Somewhat arousable Dermatology: No petechial rashes Psychiatry: No evidence of any agitation and aggression noted Assessment and plan Advanced renal failure: Patient is currently on maintenance hemodialysis 3 times per week, given that she is more catabolic due to multiple health issues we will increase her dialysis time to 3 hour 45 minute follow-up on the daily labs, patient's family has been extensively educated and counseled regarding poor renal prognosis likelihood of end-stage renal disease, is there we'll continue to monitor renal function continue with hemodialysis treatment 3 times per week Respiratory failure: Intubated also has evidence of pneumonia blood gases appeared to be satisfactory and improving mild hyponatremia to monitor and follow Will obtain a renal ultrasonogram Anemia: Severe patient needs follow-up on her workup for anemia administer erythropoietin today Follow-up on the CBC as well as other labs Blood pressure appears to be well-controlled: Adjust medication, Check intact PTH phosphoru Hypertension: Reduce hydralazine to 50 mg 3 times a days, will set parameters overall prognosis remains guarded to poor at this time We'll continue to follow and make recommendation from renal standpoint Objective - Vital Signs Vital signs: Vital Signs - 12hr 09/28/18 09/28/18 09/28/18 21:00 21:16 21:30 Temperature Pulse Rate 142 H 124 H 143 H Pulse Rate [ From Monitor] Pulse Rate [ Right Dorsalis Pedis] Respiratory 23 28 H 24 Rate Blood Pressure 154/67 180/67 201/87 O2 Sat by Pulse 100 100 100 Oximetry 09/28/18 09/28/18 09/28/18 21:45 22:00 22:16 Temperature Pulse Rate 110 H 148 H 109 H Pulse Rate [ From Monitor] Pulse Rate [ Right Dorsalis Pedis] Respiratory 16 20 16 Rate Blood Pressure 148/59 148/59 124/42 O2 Sat by Pulse 100 100 99 Oximetry 09/28/18 09/28/18 09/28/18 22:30 22:45 23:00 Temperature Pulse Rate 151 H 110 H 100 H Pulse Rate [ From Monitor] Pulse Rate [ Right Dorsalis Pedis] Respiratory 21 16 16 Rate Blood Pressure 124/42 111/56 129/53 O2 Sat by Pulse 100 100 97 Oximetry 09/28/18 09/28/18 09/28/18 23:15 23:26 23:30 Temperature Pulse Rate 97 H 92 H 93 H Pulse Rate [ From Monitor] Pulse Rate [ Right Dorsalis Pedis] Respiratory 16 16 Rate Blood Pressure 123/48 124/48 115/51 O2 Sat by Pulse 97 98 96 Oximetry 09/28/18 09/29/18 09/29/18 23:46 00:00 00:16 Temperature Pulse Rate 127 H 110 H 113 H Pulse Rate [ 98 H From Monitor] Pulse Rate [ 98 H Right Dorsalis Pedis] Respiratory 24 19 20 Rate Blood Pressure 115/51 115/51 153/72 O2 Sat by Pulse 99 100 100 Oximetry 09/29/18 09/29/18 09/29/18 00:30 00:46 01:00 Temperature Pulse Rate 125 H 97 H 87 Pulse Rate [ From Monitor] Pulse Rate [ Right Dorsalis Pedis] Respiratory 26 H 16 16 Rate Blood Pressure 153/72 150/59 137/56 O2 Sat by Pulse 100 100 100 Oximetry 09/29/18 09/29/18 09/29/18 01:15 01:30 01:45 Temperature Pulse Rate 84 101 H 94 H Pulse Rate [ From Monitor] Pulse Rate [ Right Dorsalis Pedis] Respiratory 16 14 16 Rate Blood Pressure 120/53 157/63 148/58 O2 Sat by Pulse 99 100 99 Oximetry 09/29/18 09/29/18 09/29/18 02:00 02:16 02:30 Temperature Pulse Rate 83 130 H 124 H Pulse Rate [ From Monitor] Pulse Rate [ Right Dorsalis Pedis] Respiratory 16 29 H 29 H Rate Blood Pressure 126/48 190/52 198/61 O2 Sat by Pulse 99 100 100 Oximetry 09/29/18 09/29/18 09/29/18 02:46 03:00 03:16 Temperature Pulse Rate 125 H 108 H 102 H Pulse Rate [ From Monitor] Pulse Rate [ Right Dorsalis Pedis] Respiratory 31 H 24 25 H Rate Blood Pressure 218/90 218/90 157/62 O2 Sat by Pulse 100 100 100 Oximetry 09/29/18 09/29/18 09/29/18 03:30 03:43 03:45 Temperature Pulse Rate 81 48 L 79 Pulse Rate [ From Monitor] Pulse Rate [ Right Dorsalis Pedis] Respiratory 16 16 Rate Blood Pressure 132/53 134/54 137/50 O2 Sat by Pulse 97 99 98 Oximetry 09/29/18 09/29/18 09/29/18 04:00 04:16 04:30 Temperature 99.7 F H Pulse Rate 78 90 107 H Pulse Rate [ 120 H From Monitor] Pulse Rate [ 120 H Right Dorsalis Pedis] Respiratory 20 17 22 Rate Blood Pressure 133/49 154/63 133/49 O2 Sat by Pulse 100 99 100 Oximetry 09/29/18 09/29/18 09/29/18 04:45 05:00 05:15 Temperature Pulse Rate 92 H 79 80 Pulse Rate [ From Monitor] Pulse Rate [ Right Dorsalis Pedis] Respiratory 18 16 16 Rate Blood Pressure 182/64 134/53 132/49 O2 Sat by Pulse 100 99 99 Oximetry 09/29/18 09/29/18 09/29/18 05:30 05:45 06:00 Temperature Pulse Rate 94 H 80 81 Pulse Rate [ From Monitor] Pulse Rate [ Right Dorsalis Pedis] Respiratory 18 16 18 Rate Blood Pressure 128/56 124/53 123/49 O2 Sat by Pulse 100 99 99 Oximetry 09/29/18 09/29/18 09/29/18 06:10 06:16 06:30 Temperature Pulse Rate 94 H 74 80 Pulse Rate [ From Monitor] Pulse Rate [ Right Dorsalis Pedis] Respiratory 16 16 22 Rate Blood Pressure 114/48 114/45 134/57 O2 Sat by Pulse 100 100 99 Oximetry 09/29/18 09/29/18 09/29/18 06:45 07:00 07:15 Temperature Pulse Rate 76 77 78 Pulse Rate [ From Monitor] Pulse Rate [ Right Dorsalis Pedis] Respiratory 24 25 H 27 H Rate Blood Pressure 120/47 120/48 125/47 O2 Sat by Pulse 98 98 98 Oximetry 09/29/18 09/29/18 09/29/18 07:30 07:45 08:00 Temperature Pulse Rate 70 69 83 Pulse Rate [ 93 H From Monitor] Pulse Rate [ 100 H Right Dorsalis Pedis] Respiratory 25 H 24 28 H Rate Blood Pressure 114/43 116/45 116/45 O2 Sat by Pulse 98 99 99 Oximetry 09/29/18 08:08 Temperature Pulse Rate Pulse Rate [ From Monitor] Pulse Rate [ Right Dorsalis Pedis] Respiratory 26 H Rate Blood Pressure 109/52 O2 Sat by Pulse 100 Oximetry - Lab 09/25/18 04:06 09/28/18 04:39 Most recent lab results Calcium 8.0 mg/dL (8.4-10.2) L 09/28/18 04:39 Urine Creatinine 80.7 mg/dL (0.1-20.0) H 09/23/18 16:00 Urine Sodium 66 mmol/L 09/23/18 16:00 Medications & Allergies - Medications Allergies/Adverse Reactions: Allergies codeine Adverse Reaction (Verified 09/23/18 10:09) Unknown Home Medications: Home Medications Medication Instructions Recorded Confirmed Last Taken Type ALBUTEROL NEB's [Proventil 0.083% 2.5 mg INHALATION Q6H PRN 09/25/18 09/25/18 Unknown History NEBS] Carvedilol 25 mg PO Q12H 09/25/18 09/25/18 Unknown History Clonidine 0.2 mg PO BID 09/25/18 09/25/18 Unknown History Doxazosin 2 mg PO DAILY 09/25/18 09/25/18 Unknown History Dss 100 mg PO BID 09/25/18 09/25/18 Unknown History Fluticasone [Flonase] 1 spray INNOSTRIL DAILY 09/25/18 09/25/18 Unknown History Insulin NPH/Regular [Novolin 70/30] 20 unit SQ DAILY 09/25/18 09/25/18 Unknown History Isosorbide Mononitrate 30 mg PO DAILY 09/25/18 09/25/18 Unknown History NIFEdipine [Nifedipine ER] 60 mg PO BID 09/25/18 09/25/18 Unknown History Sevelamer Carbonate 1 tab PO TID 09/25/18 09/25/18 Unknown History Simvastatin [Zocor] 1 tab PO DAILY 09/25/18 09/25/18 Unknown History Torsemide [Demadex] 0.5 tab PO DAILY 09/25/18 09/25/18 Unknown History hydrALAZINE 100 mg PO Q8H 09/25/18 09/25/18 Unknown History Active Medications: Generic Name Dose Route Start Last Admin Trade Name Freq PRN Reason Stop Dose Admin Acetaminophen 650 mg 09/22/18 04:14 09/26/18 03:56 Tylenol PO 650 mg Q4H PRN Administration Pain MILD(1-3)/Fever >100.5/MEJIA Lipase/Protease/Amylase 1 each 09/23/18 13:57 Pancrenuha Bourgeois 10,500 Unit FEEDTUBE PRN PRN For Clogged Feeding Tube Clonidine HCl 0.2 mg 09/28/18 10:00 09/28/18 12:02 Catapres-Tts Patch TD 0.2 mg Mae KAILA Administration Dextrose 50 ml 09/22/18 04:14 D50w (25gm) Syringe IV PRN PRN Hypoglycemia Enoxaparin Sodium 30 mg 09/22/18 10:00 09/28/18 09:55 Lovenox SUB-Q 30 mg QDAY KAILA Administration Epinephrine 0.5 ml 09/25/18 12:52 S2 Racepinephrine 2.25% IH Q4HRT PRN stridor Famotidine 20 mg 09/29/18 10:00 Pepcid PO DAILY KAILA Fentanyl 50 mcg 09/28/18 09:23 09/28/18 18:09 Sublimaze IV 50 mcg Q2H PRN Administration MOUTH PAIN Haloperidol Lactate 5 mg 09/28/18 10:00 09/29/18 03:50 Haldol IV 5 mg Q6H KAILA Administration Hydralazine HCl 10 mg 09/22/18 19:30 09/28/18 21:30 Apresoline IV 10 mg Q4HR PRN Administration SBP>160 Hydralazine HCl 100 mg 09/26/18 14:00 09/29/18 08:46 Apresoline PO 100 mg TID KAILA Administration Sodium Chloride 100 mls @ 999 mls/hr 09/25/18 09:59 Nacl 0.9% IV CAROLINE PRN Hypotension Dexmedetomidine HCl 200 mcg/ 50 mls @ 3.63 mls/hr 09/28/18 10:00 09/29/18 08:46 Sodium Chloride IV 0.4 mcg/kg/hr TITRATE KAILA 7.26 mls/hr Administration Protocol 0.2 MCG/KG/HR Insulin Glargine 5 units 09/28/18 22:00 09/28/18 21:17 Lantus SUB-Q 5 units QHS KAILA Administration Insulin Human Lispro 0 unit 09/22/18 06:00 09/29/18 06:31 Humalog SUB-Q Not Given Q6HR [facility] Protocol Isosorbide Dinitrate 10 mg 09/29/18 14:00 Isordil Titradose PO Q8HR KAILA Lorazepam 1 mg 09/23/18 10:06 09/28/18 02:35 Ativan IV 1 mg Q4H PRN Administration Agitation Simple Syrup 15 ml 09/23/18 13:57 Simple Syrup FEEDTUBE PRN PRN Hypoglycemia Simple Syrup 30 ml 09/23/18 13:57 Simple Syrup FEEDTUBE PRN PRN Hypoglycemia Sodium Bicarbonate 325 mg 09/23/18 13:57 Sodium Bicarbonate FEEDTUBE PRN PRN For Clogged Feeding Tube Sodium Chloride 10 ml 09/22/18 10:00 09/28/18 23:55 Sodium Chloride Flush Syringe 10 Ml IV 10 ml BID KAILA Administration Sodium Chloride 10 ml 09/22/18 04:14 Sodium Chloride Flush Syringe 10 Ml IV PRN PRN LINE FLUSH
[2018-09-29] MEDS ORDERED: NACL 0.9% 100 ML IV PRN (09:26)
[2018-09-29] MEDS ORDERED: PROCRIT SUB-Q ONE (10:00)
[2018-09-29] MEDS: PEPCID PO SCH (10:12)
[2018-09-29] MEDS: LOVENOX SUB-Q SCH (10:12)
[2018-09-29] MEDS: SODIUM CHLORIDE FLUSH SYRINGE 10 ML IV SCH ×2 (10:13→23:18)
[2018-09-29 11:12] LABS: Hematocrit 22.6 % (30.3-42.9); Hemoglobin 7.4 gm/dl (10.1-14.3); Mean Corpuscular HGB Conc 33 % (30-34); Mean Corpuscular Volume 85 fl (79-97); Platelet Count 204 K/mm3 (140-440); Red Blood Count 2.67 M/mm3 (3.65-5.03); Red Cell Distribution Width 14.6 % (13.2-15.2)
[2018-09-29 11:47] LABS: % Iron Saturation 10.27 %
[2018-09-29 12:36] LABS: Monocytes % (Manual) 0 % (0.0-7.3); Total Cells Counted 100
[2018-09-29 12:37] LABS: Anisocytosis 1+; Platelet Estimate Consistent w Auto
--- NOTE | 2018-09-29 13:18 | Progress Note ---
Assessment and Plan 68 y/o female with acute respiratory failure and ESRD. 1. Will assess mental status at bedside after ultrasound. If good and follows commands with good cuff leak, will attempt extubation. 2. Continue precedex for now. 3. Changed PRN Haldol to scheduled, this could be some delirium and added PRN fentanyl pushes. Left Ativan at current dosing 4. Reviewed Neuro note, they are concerned about anoxia. Suggest EEG. They have not seen the patient today as well. Per nursing, mental status is better. If so will hold on EEG for now. If not, will hold extubation and obtain EEG. Per ED charting, Patient had sats in the 40's upon EMS arrival and in the 80's on arrival to ED on nonrebreather and was intubated in the ED. 5. HD per renal, should be dialyzed today CCT 31 minutes. Subjective Date of service: 09/29/18 Principal diagnosis: acute respiratory failure, end-stage renal disease, AMS Interval history: Patient currently on PSV and tolerating. No family present. Renal about to perform renal ultrasound. ABG good on PSV. Objective Vital Signs - 12hr 09/29/18 09/29/18 09/29/18 01:15 01:30 01:45 Temperature Pulse Rate 84 101 H 94 H Pulse Rate [ From Monitor] Pulse Rate [ Right Dorsalis Pedis] Respiratory 16 14 16 Rate Blood Pressure 120/53 157/63 148/58 O2 Sat by Pulse 99 100 99 Oximetry 09/29/18 09/29/18 09/29/18 02:00 02:16 02:30 Temperature Pulse Rate 83 130 H 124 H Pulse Rate [ From Monitor] Pulse Rate [ Right Dorsalis Pedis] Respiratory 16 29 H 29 H Rate Blood Pressure 126/48 190/52 198/61 O2 Sat by Pulse 99 100 100 Oximetry 09/29/18 09/29/18 09/29/18 02:46 03:00 03:16 Temperature Pulse Rate 125 H 108 H 102 H Pulse Rate [ From Monitor] Pulse Rate [ Right Dorsalis Pedis] Respiratory 31 H 24 25 H Rate Blood Pressure 218/90 218/90 157/62 O2 Sat by Pulse 100 100 100 Oximetry 09/29/18 09/29/18 09/29/18 03:30 03:43 03:45 Temperature Pulse Rate 81 48 L 79 Pulse Rate [ From Monitor] Pulse Rate [ Right Dorsalis Pedis] Respiratory 16 16 Rate Blood Pressure 132/53 134/54 137/50 O2 Sat by Pulse 97 99 98 Oximetry 09/29/18 09/29/18 09/29/18 04:00 04:16 04:30 Temperature 99.7 F H Pulse Rate 78 90 107 H Pulse Rate [ 120 H From Monitor] Pulse Rate [ 120 H Right Dorsalis Pedis] Respiratory 20 17 22 Rate Blood Pressure 133/49 154/63 133/49 O2 Sat by Pulse 100 99 100 Oximetry 09/29/18 09/29/18 09/29/18 04:45 05:00 05:15 Temperature Pulse Rate 92 H 79 80 Pulse Rate [ From Monitor] Pulse Rate [ Right Dorsalis Pedis] Respiratory 18 16 16 Rate Blood Pressure 182/64 134/53 132/49 O2 Sat by Pulse 100 99 99 Oximetry 09/29/18 09/29/18 09/29/18 05:30 05:45 06:00 Temperature Pulse Rate 94 H 80 81 Pulse Rate [ From Monitor] Pulse Rate [ Right Dorsalis Pedis] Respiratory 18 16 18 Rate Blood Pressure 128/56 124/53 123/49 O2 Sat by Pulse 100 99 99 Oximetry 09/29/18 09/29/18 09/29/18 06:10 06:16 06:30 Temperature Pulse Rate 94 H 74 80 Pulse Rate [ From Monitor] Pulse Rate [ Right Dorsalis Pedis] Respiratory 16 16 22 Rate Blood Pressure 114/48 114/45 134/57 O2 Sat by Pulse 100 100 99 Oximetry 09/29/18 09/29/18 09/29/18 06:45 07:00 07:15 Temperature Pulse Rate 76 77 78 Pulse Rate [ From Monitor] Pulse Rate [ Right Dorsalis Pedis] Respiratory 24 25 H 27 H Rate Blood Pressure 120/47 120/48 125/47 O2 Sat by Pulse 98 98 98 Oximetry 09/29/18 09/29/18 09/29/18 07:30 07:45 08:00 Temperature Pulse Rate 70 69 83 Pulse Rate [ 93 H From Monitor] Pulse Rate [ 100 H Right Dorsalis Pedis] Respiratory 25 H 24 28 H Rate Blood Pressure 114/43 116/45 116/45 O2 Sat by Pulse 98 99 99 Oximetry 09/29/18 09/29/18 09/29/18 08:08 08:15 08:30 Temperature Pulse Rate 80 109 H 80 Pulse Rate [ From Monitor] Pulse Rate [ Right Dorsalis Pedis] Respiratory 26 H 25 H 29 H Rate Blood Pressure 109/52 124/67 124/67 O2 Sat by Pulse 100 100 100 Oximetry 09/29/18 09/29/18 09/29/18 08:46 09:00 09:16 Temperature Pulse Rate 83 96 H 116 H Pulse Rate [ From Monitor] Pulse Rate [ Right Dorsalis Pedis] Respiratory 27 H 37 H 41 H Rate Blood Pressure 153/51 171/65 196/77 O2 Sat by Pulse 100 100 100 Oximetry 09/29/18 09/29/18 09/29/18 09:30 09:46 10:00 Temperature Pulse Rate 79 109 H 97 H Pulse Rate [ From Monitor] Pulse Rate [ Right Dorsalis Pedis] Respiratory 27 H 38 H 38 H Rate Blood Pressure 196/77 192/66 150/58 O2 Sat by Pulse 100 98 Oximetry 09/29/18 09/29/18 09/29/18 10:16 10:30 10:46 Temperature Pulse Rate 135 H 112 H 95 H Pulse Rate [ From Monitor] Pulse Rate [ Right Dorsalis Pedis] Respiratory 49 H 39 H 33 H Rate Blood Pressure 186/102 178/58 173/58 O2 Sat by Pulse 100 100 100 Oximetry 09/29/18 11:29 Temperature Pulse Rate 123 H Pulse Rate [ From Monitor] Pulse Rate [ Right Dorsalis Pedis] Respiratory 34 H Rate Blood Pressure O2 Sat by Pulse 100 Oximetry Constitutional: no acute distress, other (orally intubated but not following commands this am. More movement in bed.) Eyes: non-icteric ENT: oropharynx moist, other (orally intubated) Effort: normal Ascultation: Bilateral: clear, diminished breath sounds Cardiovascular: regular rate and rhythm Gastrointestinal: normoactive bowel sounds, non-distended Integumentary: normal Extremities: no cyanosis, no edema Neurologic: other (RASS -1) CBC and BMP: 09/29/18 10:48 09/28/18 04:39 ABG, PT/INR, D-dimer: ABG POC ABG pH 7.388 (7.35-7.45) 09/29/18 09:54 POC ABG pCO2 42.2 (35-45) 09/29/18 09:54 POC ABG pO2 72 (80-105) L 09/29/18 09:54 POC ABG HCO3 25.4 09/29/18 09:54 POC ABG Total CO2 27 09/29/18 09:54 POC ABG O2 Sat 94 09/29/18 09:54 PT/INR, D-dimer D-Dimer 4401.15 ng/mlDDU (0-234) H 09/21/18 22:56 Abnormal lab findings: Abnormal Labs 09/21/18 09/21/18 09/21/18 22:56 22:56 22:56 WBC RBC 3.05 L Hgb 9.0 L Hct 26.9 L Lymph % (Auto) 9.3 L Whitman % (Auto) Lymph # 0.7 L Whitman # Seg Neutrophils % 84.0 H Seg Neuts % (Manual) Lymphocytes % (Manual) Seg Neutrophils # Man Lymphocytes # (Manual) D-Dimer POC ABG pH POC ABG pCO2 POC ABG pO2 Sodium Potassium 5.2 H Chloride Carbon Dioxide 17 L BUN 53 H Creatinine 6.7 H Glucose 307 H POC Glucose Lactic Acid Calcium 8.2 L Phosphorus Iron TIBC Transferrin CK-MB (CK-2) CK-MB (CK-2) Rel Index Troponin T Serum Total Protein Albumin 3.6 L Crgnz-3-Czhciawzm PEP Interpretation Triglycerides Cholesterol LDL Cholesterol Direct PTH Intact Urine WBC (Auto) Urine Creatinine Salicylates < 0.3 L Acetaminophen 09/21/18 09/21/18 09/21/18 22:56 22:56 22:56 WBC RBC Hgb Hct Lymph % (Auto) Whitman % (Auto) Lymph # Whitman # Seg Neutrophils % Seg Neuts % (Manual) Lymphocytes % (Manual) Seg Neutrophils # Man Lymphocytes # (Manual) D-Dimer 4401.15 H POC ABG pH POC ABG pCO2 POC ABG pO2 Sodium Potassium Chloride Carbon Dioxide BUN Creatinine Glucose POC Glucose Lactic Acid 3.70 H* Calcium Phosphorus Iron TIBC Transferrin CK-MB (CK-2) CK-MB (CK-2) Rel Index Troponin T Serum Total Protein Albumin Hvaij-2-Loydrawxo PEP Interpretation Triglycerides Cholesterol LDL Cholesterol Direct PTH Intact Urine WBC (Auto) Urine Creatinine Salicylates Acetaminophen < 5.0 L 09/21/18 09/21/18 09/22/18 23:14 23:57 00:48 WBC RBC Hgb Hct Lymph % (Auto) Whitman % (Auto) Lymph # Whitman # Seg Neutrophils % Seg Neuts % (Manual) Lymphocytes % (Manual) Seg Neutrophils # Man Lymphocytes # (Manual) D-Dimer POC ABG pH 7.234 L 7.322 L POC ABG pCO2 POC ABG pO2 118 H 142 H Sodium Potassium Chloride Carbon Dioxide BUN Creatinine Glucose POC Glucose Lactic Acid Calcium Phosphorus Iron TIBC Transferrin CK-MB (CK-2) CK-MB (CK-2) Rel Index Troponin T 0.062 H D Serum Total Protein Albumin Qvytk-4-Rbkwkpfis PEP Interpretation Triglycerides 208 H Cholesterol 206 H LDL Cholesterol Direct 143 H PTH Intact Urine WBC (Auto) Urine Creatinine Salicylates Acetaminophen 09/22/18 09/22/18 09/22/18 04:50 05:03 06:43 WBC RBC Hgb Hct Lymph % (Auto) Whitman % (Auto) Lymph # Whitman # Seg Neutrophils % Seg Neuts % (Manual) Lymphocytes % (Manual) Seg Neutrophils # Man Lymphocytes # (Manual) D-Dimer POC ABG pH 7.556 H POC ABG pCO2 22.4 L POC ABG pO2 176 H Sodium Potassium Chloride Carbon Dioxide BUN Creatinine Glucose POC Glucose 116 H Lactic Acid Calcium Phosphorus Iron TIBC Transferrin CK-MB (CK-2) 4.1 H CK-MB (CK-2) Rel Index 4.7 H Troponin T 0.107 H* D Serum Total Protein Albumin Jmpcs-7-Mfbdliulx PEP Interpretation Triglycerides Cholesterol LDL Cholesterol Direct PTH Intact Urine WBC (Auto) Urine Creatinine Salicylates Acetaminophen 09/22/18 09/22/18 09/22/18 09:12 10:26 18:00 WBC RBC Hgb Hct Lymph % (Auto) Whitman % (Auto) Lymph # Whitman # Seg Neutrophils % Seg Neuts % (Manual) Lymphocytes % (Manual) Seg Neutrophils # Man Lymphocytes # (Manual) D-Dimer POC ABG pH POC ABG pCO2 POC ABG pO2 Sodium Potassium Chloride Carbon Dioxide BUN Creatinine 6.7 H Glucose POC Glucose 124 H Lactic Acid Calcium Phosphorus Iron TIBC Transferrin CK-MB (CK-2) CK-MB (CK-2) Rel Index Troponin T 0.074 H D Serum Total Protein Albumin Ptphh-1-Nxbvmvpbj PEP Interpretation Triglycerides Cholesterol LDL Cholesterol Direct PTH Intact Urine WBC (Auto) Urine Creatinine Salicylates Acetaminophen 09/23/18 09/23/18 09/23/18 03:57 04:24 04:24 WBC RBC 2.85 L Hgb 8.0 L Hct 24.4 L Lymph % (Auto) Whitman % (Auto) 12.6 H Lymph # Whitman # 1.1 H Seg Neutrophils % Seg Neuts % (Manual) Lymphocytes % (Manual) Seg Neutrophils # Man Lymphocytes # (Manual) D-Dimer POC ABG pH POC ABG pCO2 27.2 L POC ABG pO2 113 H Sodium Potassium Chloride 113.4 H Carbon Dioxide 19 L BUN 54 H Creatinine 7.0 H Glucose POC Glucose Lactic Acid Calcium 8.3 L Phosphorus Iron TIBC Transferrin CK-MB (CK-2) CK-MB (CK-2) Rel Index Troponin T Serum Total Protein Albumin Hjuhd-1-Xjekkdhdy PEP Interpretation Triglycerides Cholesterol LDL Cholesterol Direct PTH Intact Urine WBC (Auto) Urine Creatinine Salicylates Acetaminophen 09/23/18 09/23/18 09/23/18 05:32 16:00 16:00 WBC RBC Hgb Hct Lymph % (Auto) Whitman % (Auto) Lymph # Whitman # Seg Neutrophils % Seg Neuts % (Manual) Lymphocytes % (Manual) Seg Neutrophils # Man Lymphocytes # (Manual) D-Dimer POC ABG pH POC ABG pCO2 POC ABG pO2 Sodium Potassium Chloride Carbon Dioxide BUN Creatinine Glucose POC Glucose Lactic Acid Calcium Phosphorus Iron TIBC Transferrin CK-MB (CK-2) CK-MB (CK-2) Rel Index Troponin T Serum Total Protein 5.2 L Albumin 2.5 L Cbdse-9-Onlgypxrx 0.4 H PEP Interpretation see below H Triglycerides Cholesterol LDL Cholesterol Direct PTH Intact Urine WBC (Auto) 13.0 H Urine Creatinine 80.7 H Salicylates Acetaminophen 09/23/18 09/23/18 09/24/18 18:47 23:53 04:28 WBC RBC 2.66 L Hgb 7.6 L Hct 22.5 L Lymph % (Auto) Whitman % (Auto) Lymph # Whitman # Seg Neutrophils % Seg Neuts % (Manual) Lymphocytes % (Manual) Seg Neutrophils # Man Lymphocytes # (Manual) D-Dimer POC ABG pH POC ABG pCO2 POC ABG pO2 Sodium Potassium Chloride Carbon Dioxide BUN Creatinine Glucose POC Glucose 115 H 145 H Lactic Acid Calcium Phosphorus Iron TIBC Transferrin CK-MB (CK-2) CK-MB (CK-2) Rel Index Troponin T Serum Total Protein Albumin Docro-4-Iicmqkzaj PEP Interpretation Triglycerides Cholesterol LDL Cholesterol Direct PTH Intact Urine WBC (Auto) Urine Creatinine Salicylates Acetaminophen 09/24/18 09/24/18 09/24/18 04:28 04:56 05:33 WBC RBC Hgb Hct Lymph % (Auto) Whitman % (Auto) Lymph # Whitman # Seg Neutrophils % Seg Neuts % (Manual) Lymphocytes % (Manual) Seg Neutrophils # Man Lymphocytes # (Manual) D-Dimer POC ABG pH 7.551 H POC ABG pCO2 32.0 L POC ABG pO2 133 H Sodium Potassium Chloride Carbon Dioxide BUN 27 H Creatinine 4.8 H Glucose 129 H POC Glucose 127 H Lactic Acid Calcium 8.0 L Phosphorus Iron TIBC Transferrin CK-MB (CK-2) CK-MB (CK-2) Rel Index Troponin T Serum Total Protein Albumin Ylijo-1-Fejyrhliv PEP Interpretation Triglycerides Cholesterol LDL Cholesterol Direct PTH Intact Urine WBC (Auto) Urine Creatinine Salicylates Acetaminophen 09/24/18 09/24/18 09/24/18 12:39 19:57 23:53 WBC RBC Hgb Hct Lymph % (Auto) Whitman % (Auto) Lymph # Whitman # Seg Neutrophils % Seg Neuts % (Manual) Lymphocytes % (Manual) Seg Neutrophils # Man Lymphocytes # (Manual) D-Dimer POC ABG pH POC ABG pCO2 POC ABG pO2 Sodium Potassium Chloride Carbon Dioxide BUN Creatinine Glucose POC Glucose 171 H 209 H 158 H Lactic Acid Calcium Phosphorus Iron TIBC Transferrin CK-MB (CK-2) CK-MB (CK-2) Rel Index Troponin T Serum Total Protein Albumin Lckrg-8-Vrswdizmc PEP Interpretation Triglycerides Cholesterol LDL Cholesterol Direct PTH Intact Urine WBC (Auto) Urine Creatinine Salicylates Acetaminophen 09/25/18 09/25/18 09/25/18 04:06 04:06 05:16 WBC RBC 2.73 L Hgb 7.9 L Hct 23.4 L Lymph % (Auto) Whitman % (Auto) Lymph # Whitman # Seg Neutrophils % Seg Neuts % (Manual) Lymphocytes % (Manual) Seg Neutrophils # Man Lymphocytes # (Manual) D-Dimer POC ABG pH 7.477 H POC ABG pCO2 POC ABG pO2 122 H Sodium Potassium Chloride 97.2 L Carbon Dioxide BUN Creatinine 3.6 H Glucose 118 H POC Glucose Lactic Acid Calcium 8.2 L Phosphorus Iron TIBC Transferrin CK-MB (CK-2) CK-MB (CK-2) Rel Index Troponin T Serum Total Protein Albumin Msuhc-4-Kezrumftg PEP Interpretation Triglycerides Cholesterol LDL Cholesterol Direct PTH Intact Urine WBC (Auto) Urine Creatinine Salicylates Acetaminophen 09/25/18 09/25/18 09/25/18 05:55 12:29 16:21 WBC RBC Hgb Hct Lymph % (Auto) Whitman % (Auto) Lymph # Whitman # Seg Neutrophils % Seg Neuts % (Manual) Lymphocytes % (Manual) Seg Neutrophils # Man Lymphocytes # (Manual) D-Dimer POC ABG pH 7.216 L POC ABG pCO2 79.9 H POC ABG pO2 Sodium Potassium Chloride Carbon Dioxide BUN Creatinine Glucose POC Glucose 144 H 128 H Lactic Acid Calcium Phosphorus Iron TIBC Transferrin CK-MB (CK-2) CK-MB (CK-2) Rel Index Troponin T Serum Total Protein Albumin Zkthk-6-Cgwdfxdbe PEP Interpretation Triglycerides Cholesterol LDL Cholesterol Direct PTH Intact Urine WBC (Auto) Urine Creatinine Salicylates Acetaminophen 09/25/18 09/25/18 09/25/18 18:27 18:44 23:56 WBC RBC Hgb Hct Lymph % (Auto) Whitman % (Auto) Lymph # Whitman # Seg Neutrophils % Seg Neuts % (Manual) Lymphocytes % (Manual) Seg Neutrophils # Man Lymphocytes # (Manual) D-Dimer POC ABG pH POC ABG pCO2 53.2 H POC ABG pO2 78 L Sodium Potassium Chloride Carbon Dioxide BUN Creatinine Glucose POC Glucose 264 H 170 H Lactic Acid Calcium Phosphorus Iron TIBC Transferrin CK-MB (CK-2) CK-MB (CK-2) Rel Index Troponin T Serum Total Protein Albumin Cjkbf-4-Nkmtqpxmw PEP Interpretation Triglycerides Cholesterol LDL Cholesterol Direct PTH Intact Urine WBC (Auto) Urine Creatinine Salicylates Acetaminophen 09/26/18 09/26/18 09/26/18 03:46 04:51 05:04 WBC RBC Hgb Hct Lymph % (Auto) Whitman % (Auto) Lymph # Whitman # Seg Neutrophils % Seg Neuts % (Manual) Lymphocytes % (Manual) Seg Neutrophils # Man Lymphocytes # (Manual) D-Dimer POC ABG pH 7.584 H POC ABG pCO2 30.9 L POC ABG pO2 151 H Sodium Potassium Chloride 95.5 L Carbon Dioxide BUN 34 H Creatinine 5.4 H Glucose 185 H POC Glucose 186 H Lactic Acid Calcium Phosphorus Iron TIBC Transferrin CK-MB (CK-2) CK-MB (CK-2) Rel Index Troponin T Serum Total Protein Albumin Joqrt-1-Ftehmqojm PEP Interpretation Triglycerides Cholesterol LDL Cholesterol Direct PTH Intact Urine WBC (Auto) Urine Creatinine Salicylates Acetaminophen 09/26/18 09/26/18 09/26/18 06:23 12:41 17:55 WBC RBC Hgb Hct Lymph % (Auto) Whitman % (Auto) Lymph # Whitman # Seg Neutrophils % Seg Neuts % (Manual) Lymphocytes % (Manual) Seg Neutrophils # Man Lymphocytes # (Manual) D-Dimer POC ABG pH 7.330 L POC ABG pCO2 49.9 H POC ABG pO2 Sodium Potassium Chloride Carbon Dioxide BUN Creatinine Glucose POC Glucose 182 H 171 H Lactic Acid Calcium Phosphorus Iron TIBC Transferrin CK-MB (CK-2) CK-MB (CK-2) Rel Index Troponin T Serum Total Protein Albumin Uzicl-3-Xsnflsrpb PEP Interpretation Triglycerides Cholesterol LDL Cholesterol Direct PTH Intact Urine WBC (Auto) Urine Creatinine Salicylates Acetaminophen 09/27/18 09/27/18 09/27/18 00:06 05:11 05:36 WBC RBC Hgb Hct Lymph % (Auto) Whitman % (Auto) Lymph # Whitman # Seg Neutrophils % Seg Neuts % (Manual) Lymphocytes % (Manual) Seg Neutrophils # Man Lymphocytes # (Manual) D-Dimer POC ABG pH POC ABG pCO2 POC ABG pO2 136 H Sodium Potassium Chloride Carbon Dioxide BUN Creatinine Glucose POC Glucose 170 H 115 H Lactic Acid Calcium Phosphorus Iron TIBC Transferrin CK-MB (CK-2) CK-MB (CK-2) Rel Index Troponin T Serum Total Protein Albumin Lpmpj-6-Yvjacmchc PEP Interpretation Triglycerides Cholesterol LDL Cholesterol Direct PTH Intact Urine WBC (Auto) Urine Creatinine Salicylates Acetaminophen 09/27/18 09/27/18 09/27/18 06:05 11:51 18:17 WBC RBC Hgb Hct Lymph % (Auto) Whitman % (Auto) Lymph # Whitman # Seg Neutrophils % Seg Neuts % (Manual) Lymphocytes % (Manual) Seg Neutrophils # Man Lymphocytes # (Manual) D-Dimer POC ABG pH POC ABG pCO2 POC ABG pO2 Sodium Potassium Chloride 95.0 L Carbon Dioxide BUN 39 H Creatinine 5.1 H Glucose 145 H POC Glucose 181 H 214 H Lactic Acid Calcium Phosphorus Iron TIBC Transferrin CK-MB (CK-2) CK-MB (CK-2) Rel Index Troponin T Serum Total Protein Albumin Nenyn-8-Vmsmqxxao PEP Interpretation Triglycerides Cholesterol LDL Cholesterol Direct PTH Intact Urine WBC (Auto) Urine Creatinine Salicylates Acetaminophen 09/27/18 09/28/18 09/28/18 23:28 04:39 04:44 WBC RBC Hgb Hct Lymph % (Auto) Whitman % (Auto) Lymph # Whitman # Seg Neutrophils % Seg Neuts % (Manual) Lymphocytes % (Manual) Seg Neutrophils # Man Lymphocytes # (Manual) D-Dimer POC ABG pH POC ABG pCO2 POC ABG pO2 151 H Sodium 134 L Potassium Chloride 95.2 L Carbon Dioxide BUN 61 H Creatinine 7.2 H Glucose 165 H POC Glucose 127 H Lactic Acid Calcium 8.0 L Phosphorus Iron TIBC Transferrin CK-MB (CK-2) CK-MB (CK-2) Rel Index Troponin T Serum Total Protein Albumin Hatmk-4-Ltwvdcsuo PEP Interpretation Triglycerides Cholesterol LDL Cholesterol Direct PTH Intact Urine WBC (Auto) Urine Creatinine Salicylates Acetaminophen 09/28/18 09/28/18 09/28/18 05:47 11:36 17:51 WBC RBC Hgb Hct Lymph % (Auto) Whitman % (Auto) Lymph # Whitman # Seg Neutrophils % Seg Neuts % (Manual) Lymphocytes % (Manual) Seg Neutrophils # Man Lymphocytes # (Manual) D-Dimer POC ABG pH POC ABG pCO2 POC ABG pO2 Sodium Potassium Chloride Carbon Dioxide BUN Creatinine Glucose POC Glucose 159 H 240 H 268 H Lactic Acid Calcium Phosphorus Iron TIBC Transferrin CK-MB (CK-2) CK-MB (CK-2) Rel Index Troponin T Serum Total Protein Albumin Hdhhj-7-Pinfchcfv PEP Interpretation Triglycerides Cholesterol LDL Cholesterol Direct PTH Intact Urine WBC (Auto) Urine Creatinine Salicylates Acetaminophen 09/28/18 09/29/18 09/29/18 23:24 05:20 09:45 WBC RBC Hgb Hct Lymph % (Auto) Whitman % (Auto) Lymph # Whitman # Seg Neutrophils % Seg Neuts % (Manual) Lymphocytes % (Manual) Seg Neutrophils # Man Lymphocytes # (Manual) D-Dimer POC ABG pH POC ABG pCO2 POC ABG pO2 56 L Sodium Potassium Chloride Carbon Dioxide BUN Creatinine Glucose POC Glucose 194 H 127 H Lactic Acid Calcium Phosphorus Iron TIBC Transferrin CK-MB (CK-2) CK-MB (CK-2) Rel Index Troponin T Serum Total Protein Albumin Rastk-5-Kedupfkgv PEP Interpretation Triglycerides Cholesterol LDL Cholesterol Direct PTH Intact Urine WBC (Auto) Urine Creatinine Salicylates Acetaminophen 09/29/18 09/29/18 09/29/18 09:54 10:48 10:48 WBC 14.5 H RBC 2.67 L Hgb 7.4 L Hct 22.6 L Lymph % (Auto) Whitman % (Auto) Lymph # Whitman # Seg Neutrophils % Seg Neuts % (Manual) 90.0 H Lymphocytes % (Manual) 6.0 L Seg Neutrophils # Man 13.1 H Lymphocytes # (Manual) 0.9 L D-Dimer POC ABG pH POC ABG pCO2 POC ABG pO2 72 L Sodium Potassium Chloride Carbon Dioxide BUN Creatinine Glucose POC Glucose Lactic Acid Calcium Phosphorus 5.30 H Iron 15 L TIBC 146 L Transferrin 109 L CK-MB (CK-2) CK-MB (CK-2) Rel Index Troponin T Serum Total Protein Albumin Tljcr-7-Paaeebdqs PEP Interpretation Triglycerides Cholesterol LDL Cholesterol Direct PTH Intact Urine WBC (Auto) Urine Creatinine Salicylates Acetaminophen 09/29/18 09/29/18 10:48 12:24 WBC RBC Hgb Hct Lymph % (Auto) Whitman % (Auto) Lymph # Whitman # Seg Neutrophils % Seg Neuts % (Manual) Lymphocytes % (Manual) Seg Neutrophils # Man Lymphocytes # (Manual) D-Dimer POC ABG pH POC ABG pCO2 POC ABG pO2 Sodium Potassium Chloride Carbon Dioxide BUN Creatinine Glucose POC Glucose 260 H Lactic Acid Calcium Phosphorus Iron TIBC Transferrin CK-MB (CK-2) CK-MB (CK-2) Rel Index Troponin T Serum Total Protein Albumin Okmef-9-Xrvgpwaar PEP Interpretation Triglycerides Cholesterol LDL Cholesterol Direct PTH Intact 417.9 H Urine WBC (Auto) Urine Creatinine Salicylates Acetaminophen
[2018-09-29] MEDS ORDERED: ISORDIL TITRADOSE PO SCH (14:00)
--- NOTE | 2018-09-29 14:08 | Progress Note ---
Assessment and Plan Currently stable cardiac status. Follow pulmonary and nephrology recs. The patient has been seen in conjunction with Dr. Adore Dale who agrees with the assessment and plan of care. - Patient Problems (1) Acute respiratory failure Current Visit: Yes Status: Acute (2) Altered mental status Current Visit: Yes Status: Acute (3) Pneumonia Current Visit: Yes Status: Acute Qualifiers: Pneumonia type: due to unspecified organism Laterality: unspecified laterality Lung location: unspecified part of lung Qualified Code(s): J18.9 - Pneumonia, unspecified organism (4) Sepsis Current Visit: Yes Status: Suspected Qualifiers: Sepsis type: sepsis due to unspecified organism Qualified Code(s): A41.9 - Sepsis, unspecified organism (5) Hypertension Current Visit: Yes Status: Chronic Qualifiers: Hypertension type: essential hypertension Qualified Code(s): I10 - Essential (primary) hypertension (6) Diabetes Current Visit: Yes Status: Chronic (7) CKD (chronic kidney disease) Current Visit: Yes Status: Chronic Qualifiers: Chronic kidney disease stage: unspecified stage Qualified Code(s): N18.9 - Chronic kidney disease, unspecified (8) Elevated troponin Current Visit: Yes Status: Acute (9) Anemia Current Visit: Yes Status: Chronic (10) Hyperkalemia Current Visit: Yes Status: Acute Subjective Date of service: 09/29/18 Principal diagnosis: acute respiratory failure, end-stage renal disease, AMS Interval history: pt remains intubated, agitated, restrained. in SR on telemetry. Objective Last Vital Signs Temp 99.7 F H 09/29/18 04:00 Pulse 123 H 09/29/18 11:29 Resp 34 H 09/29/18 11:29 BP 173/58 09/29/18 10:46 Pulse Ox 100 09/29/18 11:29 - Physical Examination General: Other (intubated, FIO2 35, PEEP 6) HEENT: Positive: PERRL, EOMI, Normocephaly Neck: Positive: neck supple, trachea midline. Negative: JVD/HJR, Masses Cardiac: Positive: Reg Rate and Rhythm, S1/S2 Lungs: Positive: Decreased Breath Sounds Neuro: Positive: Other (intubated) Abdomen: Positive: Unremarkable, Soft Skin: Negative: Rash, Wound Musculoskeletal: No Fluid Collection, No Pain Extremities: Present: edema (trace BLE) - Labs and Meds CBC 09/29/18 Range/Units 10:48 WBC 14.5 H (4.5-11.0) K/mm3 RBC 2.67 L (3.65-5.03) M/mm3 Hgb 7.4 L (10.1-14.3) gm/dl Hct 22.6 L (30.3-42.9) % Plt Count 204 (140-440) K/mm3 - Imaging and Cardiology EKG: report reviewed, image reviewed Echo: report reviewed (EF 50-55%, mild LVH, LA mildly dilated, mild MR, trace TR, right pleural effusion. ) - EKG Sinus rhythms and dysrhythmias: sinus rhythm
--- NOTE | 2018-09-29 16:28 | Progress Note ---
Assessment and Plan Assessment and plan: 68 year old woman history of CHF, hypertension, diabetes, chronic kidney disease was brought to the emergency room for shortness of breath. The history is per the son Roshan, he stated he was not at the scene, the patient was at [employer] when her symptoms started. Patient was intubated in the emergency room, she is sedated, review of system is unobtainable. Nurse reported that the patient had copious amount of vomiting in the ER (1) Acute respiratory failure Current Visit: Yes Status: Acute Plan to address problem: Acute respiratory failure seems to be a little more alert today. Currently weaning patient off of fentanyl and propofol and attempts to extubate soon. Agree with possibility of anoxia again hopefully not severe enough to affect quality of life too much. EEG should be helpful. Also will benefit from further evaluation after extubation. (2)NSTEMI TYPE 2 Elevated troponin Current Visit: Yes Status: Acute Plan to address problem: Elevated troponin non-STEMI2. Aspirin beta lou continue current anticoagulation cardiology following. (3) Sepsis secondary Pneumonia Current Visit: Yes Status: Acute Qualifiers: Pneumonia type: due to unspecified organism Laterality: unspecified laterality Lung location: unspecified part of lung Qualified Code(s): J18.9 - Pneumonia, unspecified organism Plan to address problem: Patient with possible aspiration pneumonia currently not receiving any antibiotics at this time.. Recent culture data unremarkable. Has remained afebrile and no leukocytosis. We'll observe closely because of high risk of aspiration. Left lower lobe atelectasis seems to be secondary to volume. (4) Respiratory failure Current Visit: Yes Status: Acute Qualifiers: Chronicity: acute Respiratory failure complication: hypoxia Qualified Code(s): J96.01 - Acute respiratory failure with hypoxia Plan to address problem: Again pending weaning and extubation. (5) CKD (chronic kidney disease) Current Visit: Yes Status: Chronic Qualifiers: Chronic kidney disease stage: unspecified stage Qualified Code(s): N18.9 - Chronic kidney disease, unspecified Plan to address problem: Chronic kidney disease continue hemodialysis tolerated Saturday. Status post right IJ Vas-Cath placement on 09/23/2018. -started on HD Discuss possible placement of permacath. will discuss with Pulmonary (6) Diabetes Current Visit: Yes Status: Chronic Plan to address problem: At present has fair control diabetes with sliding scale. We'll consider adding long-acting insulin may be 5 mg of Lantus daily at bedtime and titrate accordingly. (7) Hypertension Current Visit: Yes Status: Chronic Qualifiers: Hypertension type: essential hypertension Qualified Code(s): I10 - Essential (primary) hypertension Plan to address problem: Blood pressure much better controlled today. (8) Metabolic Encephalopathy Unsure etiology. Patient noted to be significantly hypoxic on EMS arrival, (9)Type 2 diabetes mellitus Current Visit: Yes Status: Chronic The high probability of a clinically significant, sudden or life threatening deterioration of the [pulmonary, cardiac, renal] system(s) required my full and direct attention, intervention and personal management. The aggregate critical care time was [35]minutes. This time is in addition to time spent performing reported procedures but includes the following: [x] Data Review and interpretation [x] Patient assessment and monitoring of vital signs [x] Documentation [x] Medication orders and management History Interval history: Patient is examined this morning he remains intubated, agitated With attempt to wean sedation. still on the vent, family at bedside Hospitalist Physical - Physical exam Narrative exam: VITAL SIGNS: Reviewed. GENERAL: The patient appeared agitated moderate respiratory distress currently on mechanical ventilation. What vital signs as documented. HEAD: No signs of head trauma. EYES: Pupils are equal. Extraocular motions intact. EARS: Hearing grossly intact. MOUTH: G-tube in place NECK: No adenopathy, no JVD. CHEST: Chest with clear breath sounds bilaterally. No wheezes, rales, or rhonchi. CARDIAC: Regular rate and rhythm. S1 and S2, without murmurs, gallops, or rubs. VASCULAR: No Edema. Peripheral pulses normal and equal in all extremities. ABDOMEN: Soft, without detectable tenderness. No sign of distention. No rebound or guarding, and no masses palpated. Bowel Sounds normal. MUSCULOSKELETAL: Good range of motion of all major joints. Extremities without clubbing, cyanosis or edema. NEUROLOGIC EXAM: Awake orientation unable to assess at this time. No focal sensory or strength deficits. PSYCHIATRIC: Unable to assess SKIN: No rash or lesions. - Constitutional Vitals: Temp Pulse Resp BP Pulse Ox 99.7 F H 102 H 36 H 125/50 100 09/29/18 14:30 09/29/18 16:17 09/29/18 16:17 09/29/18 16:17 09/29/18 16:17 General appearance: Present: no acute distress, mild distress, other (intubated, sedated) Results - Labs CBC & Chem 7: 09/29/18 10:48 09/28/18 04:39 Labs: Laboratory Last Values WBC 14.5 K/mm3 (4.5-11.0) H 09/29/18 10:48 RBC 2.67 M/mm3 (3.65-5.03) L 09/29/18 10:48 Hgb 7.4 gm/dl (10.1-14.3) L 09/29/18 10:48 Hct 22.6 % (30.3-42.9) L 09/29/18 10:48 MCV 85 fl (79-97) 09/29/18 10:48 MCH 28 pg (28-32) 09/29/18 10:48 MCHC 33 % (30-34) 09/29/18 10:48 RDW 14.6 % (13.2-15.2) 09/29/18 10:48 Plt Count 204 K/mm3 (140-440) 09/29/18 10:48 Lymph % (Auto) 16.7 % (13.4-35.0) 09/23/18 04:24 [place] % (Auto) 12.6 % (0.0-7.3) H 09/23/18 04:24 Eos % (Auto) 3.5 % (0.0-4.3) 09/23/18 04:24 Baso % (Auto) 1.5 % (0.0-1.8) 09/23/18 04:24 Lymph # 1.4 K/mm3 (1.2-5.4) 09/23/18 04:24 [place] # 1.1 K/mm3 (0.0-0.8) H 09/23/18 04:24 Eos # 0.3 K/mm3 (0.0-0.4) 09/23/18 04:24 Baso # 0.1 K/mm3 (0.0-0.1) 09/23/18 04:24 Add Manual Diff Complete 09/29/18 10:48 Total Counted 100 09/29/18 10:48 Seg Neutrophils % 65.7 % (40.0-70.0) 09/23/18 04:24 Seg Neuts % (Manual) 90.0 % (40.0-70.0) H 09/29/18 10:48 Band Neutrophils % 0 % 09/29/18 10:48 Lymphocytes % (Manual) 6.0 % (13.4-35.0) L 09/29/18 10:48 Reactive Lymphs % (Man) 0 % 09/29/18 10:48 Monocytes % (Manual) 0 % (0.0-7.3) 09/29/18 10:48 Eosinophils % (Manual) 1.0 % (0.0-4.3) 09/29/18 10:48 Basophils % (Manual) 1.0 % (0.0-1.8) 09/29/18 10:48 Metamyelocytes % 2.0 % 09/29/18 10:48 Myelocytes % 0 % 09/29/18 10:48 Promyelocytes % 0 % 09/29/18 10:48 Blast Cells % 0 % 09/29/18 10:48 Nucleated RBC % Not Reportable 09/29/18 10:48 Seg Neutrophils # 5.5 K/mm3 (1.8-7.7) 09/23/18 04:24 Seg Neutrophils # Man 13.1 K/mm3 (1.8-7.7) H 09/29/18 10:48 Band Neutrophils # 0.0 K/mm3 09/29/18 10:48 Lymphocytes # (Manual) 0.9 K/mm3 (1.2-5.4) L 09/29/18 10:48 Abs React Lymphs (Man) 0.0 K/mm3 09/29/18 10:48 Monocytes # (Manual) 0.0 K/mm3 (0.0-0.8) 09/29/18 10:48 Eosinophils # (Manual) 0.1 K/mm3 (0.0-0.4) 09/29/18 10:48 Basophils # (Manual) 0.1 K/mm3 (0.0-0.1) 09/29/18 10:48 Metamyelocytes # 0.3 K/mm3 09/29/18 10:48 Myelocytes # 0.0 K/mm3 09/29/18 10:48 Promyelocytes # 0.0 K/mm3 09/29/18 10:48 Blast Cells # 0.0 K/mm3 09/29/18 10:48 WBC Morphology Not Reportable 09/29/18 10:48 Hypersegmented Neuts Not Reportable 09/29/18 10:48 Hyposegmented Neuts Not Reportable 09/29/18 10:48 Hypogranular Neuts Not Reportable 09/29/18 10:48 Smudge Cells Not Reportable 09/29/18 10:48 Toxic Granulation Not Reportable 09/29/18 10:48 Toxic Vacuolation Not Reportable 09/29/18 10:48 Dohle Bodies Not Reportable 09/29/18 10:48 Pelger-Huet Anomaly Not Reportable 09/29/18 10:48 Kevin Rods Not Reportable 09/29/18 10:48 Platelet Estimate Consistent w auto 09/29/18 10:48 Clumped Platelets Not Reportable 09/29/18 10:48 Plt Clumps, EDTA Not Reportable 09/29/18 10:48 Large Platelets Not Reportable 09/29/18 10:48 Giant Platelets Not Reportable 09/29/18 10:48 Platelet Satelliting Not Reportable 09/29/18 10:48 Plt Morphology Comment Not Reportable 09/29/18 10:48 RBC Morphology Not Reportable 09/29/18 10:48 Dimorphic RBCs Not Reportable 09/29/18 10:48 Polychromasia Not Reportable 09/29/18 10:48 Hypochromasia Not Reportable 09/29/18 10:48 Poikilocytosis Not Reportable 09/29/18 10:48 Anisocytosis 1+ 09/29/18 10:48 Microcytosis Not Reportable 09/29/18 10:48 Macrocytosis Not Reportable 09/29/18 10:48 Spherocytes Not Reportable 09/29/18 10:48 Pappenheimer Bodies Not Reportable 09/29/18 10:48 Sickle Cells Not Reportable 09/29/18 10:48 Target Cells Not Reportable 09/29/18 10:48 Tear Drop Cells Not Reportable 09/29/18 10:48 Ovalocytes Not Reportable 09/29/18 10:48 Helmet Cells Not Reportable 09/29/18 10:48 Smith-Tichigan Bodies Not Reportable 09/29/18 10:48 Thelma Rings Not Reportable 09/29/18 10:48 Judith Cells Not Reportable 09/29/18 10:48 Bite Cells Not Reportable 09/29/18 10:48 Crenated Cell Not Reportable 09/29/18 10:48 Elliptocytes Not Reportable 09/29/18 10:48 Acanthocytes (Spur) Not Reportable 09/29/18 10:48 Rouleaux Not Reportable 09/29/18 10:48 Hemoglobin C Crystals Not Reportable 09/29/18 10:48 Schistocytes Not Reportable 09/29/18 10:48 Malaria parasites Not Reportable 09/29/18 10:48 Sal Bodies Not Reportable 09/29/18 10:48 Hem Pathologist Commnt No 09/29/18 10:48 D-Dimer 4401.15 ng/mlDDU (0-234) H 09/21/18 22:56 POC ABG pH 7.388 (7.35-7.45) 09/29/18 09:54 POC ABG pCO2 42.2 (35-45) 09/29/18 09:54 POC ABG pO2 72 (80-105) L 09/29/18 09:54 POC ABG HCO3 25.4 09/29/18 09:54 POC ABG Total CO2 27 09/29/18 09:54 POC ABG O2 Sat 94 09/29/18 09:54 POC ABG Base Excess 0 09/29/18 09:54 FiO2 30 % 09/29/18 09:54 Sodium 134 mmol/L (137-145) L 09/28/18 04:39 Potassium 4.3 mmol/L (3.6-5.0) 09/28/18 04:39 Chloride 95.2 mmol/L (98-107) L 09/28/18 04:39 Carbon Dioxide 24 mmol/L (22-30) 09/28/18 04:39 Anion Gap 19 mmol/L 09/28/18 04:39 BUN 61 mg/dL (7-17) H 09/28/18 04:39 Creatinine 7.2 mg/dL (0.7-1.2) H 09/28/18 04:39 Estimated GFR 7 ml/min 09/28/18 04:39 BUN/Creatinine Ratio 8 % 09/28/18 04:39 Glucose 165 mg/dL (65-100) H 09/28/18 04:39 POC Glucose 260 (70-105) H 09/29/18 12:24 Lactic Acid 1.70 mmol/L (0.7-2.0) 09/22/18 04:50 Calcium 8.0 mg/dL (8.4-10.2) L 09/28/18 04:39 Phosphorus 5.30 mg/dL (2.5-4.5) H 09/29/18 10:48 Iron 15 ug/dL (37-170) L 09/29/18 10:48 TIBC 146 mcg/dL (250-450) L 09/29/18 10:48 % Saturation 10.27 % 09/29/18 10:48 Transferrin 109 mg/dl (192-382) L 09/29/18 10:48 Total Bilirubin 0.20 mg/dL (0.1-1.2) 09/21/18 22:56 AST 17 units/L (5-40) 09/21/18 22:56 ALT 9 units/L (7-56) 09/21/18 22:56 Alkaline Phosphatase 86 units/L (35-129) 09/21/18 22:56 Ammonia 57.0 umol/L (25-60) 09/21/18 22:56 Total Creatine Kinase 81 units/L (30-135) 09/22/18 10:26 CK-MB (CK-2) 3.1 ng/mL (0.0-4.0) 09/22/18 10:26 CK-MB (CK-2) Rel Index 3.8 (0-4) 09/22/18 10:26 Troponin T 0.074 ng/mL (0.00-0.029) H D 09/22/18 10:26 Serum Total Protein 5.2 g/dL (6.1-8.1) L 09/23/18 05:32 Total Protein 6.5 g/dL (6.3-8.2) 09/21/18 22:56 Albumin 2.5 g/dL (3.8-4.8) L 09/23/18 05:32 Albumin/Globulin Ratio 1.2 % 09/21/18 22:56 Dlirr-0-Tchzhsfjn 0.4 g/dL (0.2-0.3) H 09/23/18 05:32 Dwvtz-1-Mhqajupns 0.8 g/dL (0.5-0.9) 09/23/18 05:32 Beta Globulins 0.4 g/dL (0.2-0.5) 09/23/18 05:32 Gamma Globulins 0.9 g/dL (0.8-1.7) 09/23/18 05:32 Abnorm Protein Band 1 see below 09/23/18 05:32 PEP Interpretation see below H 09/23/18 05:32 Triglycerides 208 mg/dL (2-149) H 09/21/18 23:57 Cholesterol 206 mg/dL (50-199) H 09/21/18 23:57 LDL Cholesterol Direct 143 mg/dL (50-130) H 09/21/18 23:57 HDL Cholesterol 40 mg/dL (40-59) 09/21/18 23:57 Cholesterol/HDL Ratio 5.15 % 09/21/18 23:57 Vitamin B12 839.9 pg/mL (211-911) 09/29/18 10:48 PTH Intact 417.9 pg/mL (15-65) H 09/29/18 10:48 Urine Color Yellow (Yellow) 09/23/18 16:00 Urine Turbidity Clear (Clear) 09/23/18 16:00 Urine pH 7.0 (5.0-7.0) 09/23/18 16:00 Ur Specific [place] 1.009 (1.003-1.030) 09/23/18 16:00 Urine Protein >500 mg/dL (Negative) 09/23/18 16:00 Urine Glucose (UA) 50 mg/dL (Negative) 09/23/18 16:00 Urine Ketones Neg mg/dL (Negative) 09/23/18 16:00 Urine Blood Neg (Negative) 09/23/18 16:00 Urine Nitrite Neg (Negative) 09/23/18 16:00 Urine Bilirubin Neg (Negative) 09/23/18 16:00 Urine Urobilinogen < 2.0 mg/dL (<2.0) 09/23/18 16:00 Ur Leukocyte Esterase Sm (Negative) 09/23/18 16:00 Urine WBC (Auto) 13.0 /HPF (0.0-6.0) H 09/23/18 16:00 Urine RBC (Auto) 1.0 /HPF (0.0-6.0) 09/23/18 16:00 U Epithel Cells (Auto) < 1.0 /HPF (0-13.0) 09/23/18 16:00 Urine Bacteria (Auto) 1+ /HPF (Negative) 09/23/18 16:00 Hyaline Casts 3 /LPF 09/23/18 16:00 Urine Mucus Few /HPF 09/23/18 16:00 Urine Eosinophils None seen (None Seen) 09/22/18 16:00 Urine Creatinine 80.7 mg/dL (0.1-20.0) H 09/23/18 16:00 Urine Sodium 66 mmol/L 09/23/18 16:00 Fraction Sodium Excret 3.6 09/23/18 16:00 Salicylates < 0.3 mg/dL (2.8-20.0) L 09/21/18 22:56 Acetaminophen < 5.0 ug/mL (10.0-30.0) L 09/21/18 22:56 Plasma/Serum Alcohol < 0.01 % (0-0.07) 09/21/18 22:56 AGATA Screen Negative (Negative) 09/22/18 18:06 Proteinase 3 (PR3) Ab <1.0 AI (<1.0) 09/22/18 18:06 Myeloperoxidase Ab <1.0 AI (<1.0) 09/22/18 18:06 Double Strand DNA Ab 1 IU/mL (<=4) 09/22/18 18:06 Complement C3 113 mg/dL (83-193) 09/22/18 18:06 Complement C4 57 mg/dL (15-57) 09/22/18 18:06 Hepatitis A IgM Ab Non-reactive (NonReactive) 09/22/18 18:06 Hep Bs Antigen Non-reactive (Negative) 09/22/18 18:06 Hep B Core IgM Ab Non-reactive (NonReactive) 09/22/18 18:06 Hepatitis C Antibody Non-reactive (NonReactive) 09/22/18 18:06 Nutrition/Malnutrition Assess - Dietary Evaluation Nutrition/Malnutrition Findings: Nutrition Notes Start: 09/23/18 13:24 Freq: Status: Active Protocol: Document 09/29/18 14:27 ENEIDA (Rec: 09/29/18 14:32 ENEIDA [email or web address]) Nutrition Notes Initial or Follow up Reassessment Current Diagnosis CKD (stage V CKD) Diabetes Hypertension Respiratory Failure Other Pertinent Diagnosis Pneu Current Diet TF - Nepro at 35ml/hr Labs/Tests Reviewed Pertinent Medications [place] Height 5 ft 3 in Weight 75 kg Lilly Body Weight (kg) 52.27 BMI 29.2 Subjective/Other Information Pt remains on vent support. She is tolerating TF at goal rate. Percent of energy/protein needs met: 100% energy 76% pro Burn Absent Trauma Absent #1 Nutrition Diagnosis Inadequate oral intake Diagnosis Progress(for reassessment Continues documentation) Is patient on ventilator? Yes Is Patient Ambulatory and/or Out of Bed No REE-([place]-St. Jeor-confined to bed) 1510.357 Calculation Used for Recommendations [place] Jeor Additional Notes Pro needs 1.2-2g/k-150g/ day Fluid needs 1-1.5L/day Nutrition Intervention Nutrition Support: Continue Nepro at 35ml/hr Water flush of 150 ml q4h or per MD order Kcal 1,512 Protein (gm) 68 Fluid (mL) 610 Goal #1 TF tolerance Goal #2 TF to meet at least 80% energy and pro needs Follow-Up By: 10/07/18 Additional Comments F/U: stable TF, wt, vent status
[2018-09-29] MEDS: ATIVAN IV PRN (20:32)
[2018-09-29] MEDS: LANTUS SUB-Q SCH (23:18)
[2018-09-30] MEDS: HumaLOG SUB-Q SCH ×4 (00:47→18:36)
[2018-09-30] MEDS: HALDOL IV SCH ×4 (05:17→21:53)
[2018-09-30] MEDS: DEXMEDETOMIDINE 200 MCG in NACL 0.9% 48 ML IV SCH (05:40)
[2018-09-30] MEDS: APRESOLINE PO SCH ×3 (08:15→21:53)
--- NOTE | 2018-09-30 09:08 | Ultrasound Report ---
FINAL REPORT EXAM: US RENAL BILAT HISTORY: renal failure COMPARISONS: None. FINDINGS: Grayscale and color Doppler renal and bladder ultrasound The right kidney measures 10.2 cm in length and is without hydronephrosis or echogenic shadowing foci to suggest nephrolithiasis. No abdominal ascites or free fluid in Morison's pouch. The left kidney measures 10.6 cm in length and is also without hydronephrosis or echogenic shadowing foci to suggest nephrolithiasis. There is a left lower pole hypoechoic partially exophytic round mass with internal flow on color Doppler and posterior acoustic shadowing measuring 3.9 x 4.9 x 3.6 cm. Echogenic debris is suggested within the urinary bladder. IMPRESSION: No hydronephrosis in either kidney. A solid mass is suggested at the lower pole of the left kidney me asuring up to 4.9 cm. Follow-up imaging is needed. If CT with contrast cannot be performed because of renal function and GFR is deemed too low for gadolinium administration, than MRI without contrast wo uld be the next best test to further evaluate this finding. Notification initiated via [employer] supportive employment case manager following this dictation on 09/30/2018.
[2018-09-30] MEDS: LOVENOX SUB-Q SCH (10:19)
[2018-09-30] MEDS: PEPCID PO SCH (10:19)
[2018-09-30] MEDS: SODIUM CHLORIDE FLUSH SYRINGE 10 ML IV SCH ×2 (10:20→21:54)
--- NOTE | 2018-09-30 10:26 | Progress Note ---
Subjective Principal diagnosis: acute respiratory failure, end-stage renal disease, AMS Interval history: Patient was seen today for follow-up on multiple renal related issues Currently on hemodialysis 3 times per week Family has been educated about this past medical history:: Reviewed Allergies: Reviewed Family history: Reviewed Physical examination HEENT: Oral mucosa moist Neck: Supple no JVD Chest: Clear to auscultation anteriorly Posteriorly has crackles in bases CVS: Regular rate and rhythm S1 and S2 heard Abdomen: Soft nontender no suprapubic masses no organomegaly appreciable Extremity: Dry skin less than 1+ peripheral edema Musculoskeletal: No joint effusion noted in knees and ankle Dermatology: No petechial rashes Psychiatry: No evidence of any agitation and aggression noted Assessment and plan Advanced renal failure likely end-stage renal disease, patient is currently on maintenance hemodialysis 3 times per week Continue with Saturday dialysis Anemia: Severe periodically will require packed red blood cell transfusion as well as erythropoietin From kidney standpoint she will need to continue with dialysis weekly believe she is an stage renal disease Hyponatremia: To monitor and follow Her CBC needs to be monitored closely , she may require packed red blood cell transfusion Respiratory failure currently being followed by pulmonary physician Secondary hyperparathyroidism: Check phosphorus as well as PTH level periodically Uncontrolled hypertension continue to monitor and adjust medications Prognosis poor: Patient will require ongoing dialysis for now She will need a permacath when her health is more stable overall prognosis remains guarded to poor, due to multiple comorbidities this has been explained to patient's son We'll continue to follow and make recommendation from renal standpoint Objective - Vital Signs Vital signs: Vital Signs - 12hr 09/29/18 09/29/18 09/29/18 22:30 22:45 23:00 Temperature Pulse Rate 80 81 114 H Pulse Rate [ From Monitor] Respiratory 18 16 26 H Rate Respiratory Rate [ Generalized] Blood Pressure 128/43 134/43 134/43 O2 Sat by Pulse 99 98 95 Oximetry 09/29/18 09/29/18 09/29/18 23:16 23:18 23:30 Temperature 99.9 F H Pulse Rate 103 H 102 H Pulse Rate [ From Monitor] Respiratory 23 18 Rate Respiratory Rate [ Generalized] Blood Pressure 95/64 95/64 O2 Sat by Pulse 100 99 Oximetry 09/29/18 09/30/18 09/30/18 23:45 00:00 00:15 Temperature Pulse Rate 84 87 90 Pulse Rate [ 95 H From Monitor] Respiratory 21 4 L 20 Rate Respiratory Rate [ Generalized] Blood Pressure 148/52 137/63 148/50 O2 Sat by Pulse 100 100 100 Oximetry 09/30/18 09/30/18 09/30/18 00:30 00:34 00:46 Temperature Pulse Rate 94 H 95 H 77 Pulse Rate [ From Monitor] Respiratory 22 20 Rate Respiratory Rate [ Generalized] Blood Pressure 140/54 130/44 O2 Sat by Pulse 99 96 Oximetry 09/30/18 09/30/18 09/30/18 01:00 01:15 01:30 Temperature Pulse Rate 96 H 105 H 159 H Pulse Rate [ From Monitor] Respiratory 27 H 22 21 Rate Respiratory Rate [ Generalized] Blood Pressure 154/53 137/63 154/53 O2 Sat by Pulse 100 97 100 Oximetry 09/30/18 09/30/18 09/30/18 01:46 02:00 02:15 Temperature Pulse Rate 113 H 87 79 Pulse Rate [ From Monitor] Respiratory 26 H 20 13 Rate Respiratory Rate [ Generalized] Blood Pressure 177/59 137/63 135/51 O2 Sat by Pulse 100 100 100 Oximetry 09/30/18 09/30/18 09/30/18 02:30 02:45 03:00 Temperature Pulse Rate 91 H 75 76 Pulse Rate [ From Monitor] Respiratory 16 18 15 Rate Respiratory Rate [ Generalized] Blood Pressure 114/44 113/48 113/48 O2 Sat by Pulse 100 100 100 Oximetry 09/30/18 09/30/18 09/30/18 03:09 03:15 03:30 Temperature Pulse Rate 87 94 H 78 Pulse Rate [ From Monitor] Respiratory 25 H 16 Rate Respiratory Rate [ Generalized] Blood Pressure 136/34 161/61 134/46 O2 Sat by Pulse 100 100 100 Oximetry 09/30/18 09/30/18 09/30/18 03:36 03:45 04:00 Temperature 98.9 F Pulse Rate 75 74 Pulse Rate [ 69 From Monitor] Respiratory 16 16 Rate Respiratory Rate [ Generalized] Blood Pressure 106/45 112/41 O2 Sat by Pulse 100 100 Oximetry 09/30/18 09/30/18 09/30/18 04:15 04:30 04:45 Temperature Pulse Rate 75 70 72 Pulse Rate [ From Monitor] Respiratory 16 12 11 L Rate Respiratory Rate [ Generalized] Blood Pressure 114/43 105/42 101/41 O2 Sat by Pulse 100 100 100 Oximetry 09/30/18 09/30/18 09/30/18 05:00 05:16 05:30 Temperature Pulse Rate 73 75 67 Pulse Rate [ From Monitor] Respiratory 16 16 16 Rate Respiratory Rate [ Generalized] Blood Pressure 125/44 126/45 105/40 O2 Sat by Pulse 100 100 100 Oximetry 09/30/18 09/30/18 09/30/18 05:46 06:00 06:15 Temperature Pulse Rate 66 77 77 Pulse Rate [ From Monitor] Respiratory 16 17 20 Rate Respiratory Rate [ Generalized] Blood Pressure 114/42 121/42 121/42 O2 Sat by Pulse 100 100 100 Oximetry 09/30/18 09/30/18 09/30/18 06:16 06:30 06:45 Temperature Pulse Rate 61 63 62 Pulse Rate [ From Monitor] Respiratory 16 16 Rate Respiratory Rate [ Generalized] Blood Pressure 118/42 116/41 111/42 O2 Sat by Pulse 100 100 100 Oximetry 09/30/18 09/30/18 09/30/18 06:46 07:00 07:15 Temperature Pulse Rate 62 62 75 Pulse Rate [ From Monitor] Respiratory 12 16 8 L Rate Respiratory Rate [ Generalized] Blood Pressure 111/42 111/42 O2 Sat by Pulse 100 100 100 Oximetry 09/30/18 09/30/18 09/30/18 07:30 07:45 08:00 Temperature 99.4 F Pulse Rate 65 86 Pulse Rate [ 65 From Monitor] Respiratory 14 11 L 17 Rate Respiratory Rate [ Generalized] Blood Pressure 92/44 92/44 O2 Sat by Pulse 100 100 100 Oximetry 09/30/18 09/30/18 09/30/18 08:01 08:15 08:31 Temperature Pulse Rate 64 65 87 Pulse Rate [ From Monitor] Respiratory 16 16 18 Rate Respiratory Rate [ Generalized] Blood Pressure 104/41 104/41 104/41 O2 Sat by Pulse 100 100 97 Oximetry 09/30/18 09/30/18 09/30/18 08:34 08:45 09:01 Temperature Pulse Rate 65 62 59 L Pulse Rate [ From Monitor] Respiratory 16 16 Rate Respiratory Rate [ Generalized] Blood Pressure 104/41 109/43 O2 Sat by Pulse 100 100 Oximetry 09/30/18 09/30/18 09/30/18 09:15 09:31 09:45 Temperature Pulse Rate 58 L 56 L 77 Pulse Rate [ From Monitor] Respiratory 16 16 15 Rate Respiratory Rate [ Generalized] Blood Pressure 108/45 113/47 113/47 O2 Sat by Pulse 100 100 100 Oximetry 09/30/18 09/30/18 09:50 10:00 Temperature Pulse Rate 63 Pulse Rate [ From Monitor] Respiratory 20 Rate Respiratory 16 Rate [ Generalized] Blood Pressure 136/49 O2 Sat by Pulse 100 Oximetry - Lab 10/01/18 05:48 10/01/18 05:48 Most recent lab results Calcium 8.0 mg/dL (8.4-10.2) L 09/28/18 04:39 Phosphorus 5.30 mg/dL (2.5-4.5) H 09/29/18 10:48 Urine Creatinine 80.7 mg/dL (0.1-20.0) H 09/23/18 16:00 Urine Sodium 66 mmol/L 09/23/18 16:00 Medications & Allergies - Medications Allergies/Adverse Reactions: Allergies codeine Adverse Reaction (Verified 09/23/18 10:09) Unknown Home Medications: Home Medications Medication Instructions Recorded Confirmed Last Taken Type ALBUTEROL NEB's [Proventil 0.083% 2.5 mg INHALATION Q6H PRN 09/25/18 09/25/18 Unknown History NEBS] Carvedilol 25 mg PO Q12H 09/25/18 09/25/18 Unknown History Clonidine 0.2 mg PO BID 09/25/18 09/25/18 Unknown History Doxazosin 2 mg PO DAILY 09/25/18 09/25/18 Unknown History Dss 100 mg PO BID 09/25/18 09/25/18 Unknown History Fluticasone [Flonase] 1 spray INNOSTRIL DAILY 09/25/18 09/25/18 Unknown History Insulin NPH/Regular [Novolin 70/30] 20 unit SQ DAILY 09/25/18 09/25/18 Unknown History Isosorbide Mononitrate 30 mg PO DAILY 09/25/18 09/25/18 Unknown History NIFEdipine [Nifedipine ER] 60 mg PO BID 09/25/18 09/25/18 Unknown History Sevelamer Carbonate 1 tab PO TID 09/25/18 09/25/18 Unknown History Simvastatin [Zocor] 1 tab PO DAILY 09/25/18 09/25/18 Unknown History Torsemide [Demadex] 0.5 tab PO DAILY 09/25/18 09/25/18 Unknown History hydrALAZINE 100 mg PO Q8H 09/25/18 09/25/18 Unknown History Active Medications: Generic Name Dose Route Start Last Admin Trade Name Vlad PRN Reason Stop Dose Admin Acetaminophen 650 mg 09/22/18 04:14 09/26/18 03:56 Tylenol PO 650 mg Q4H PRN Administration Pain MILD(1-3)/Fever >100.5/MEJIA Lipase/Protease/Amylase 1 each 09/23/18 13:57 Pancreaze 10,500 Unit FEEDTUBE PRN PRN For Clogged Feeding Tube Clonidine HCl 0.2 mg 09/28/18 10:00 09/28/18 12:02 Catapres-Tts Patch TD 0.2 mg Mae KAILA Administration Dextrose 50 ml 09/22/18 04:14 D50w (25gm) Syringe IV PRN PRN Hypoglycemia Enoxaparin Sodium 30 mg 09/22/18 10:00 09/30/18 10:19 Lovenox SUB-Q 30 mg QDAY KAILA Administration Epinephrine 0.5 ml 09/25/18 12:52 S2 Racepinephrine 2.25% IH Q4HRT PRN stridor Famotidine 20 mg 09/29/18 10:00 09/30/18 10:19 Pepcid PO 20 mg DAILY KAILA Administration Fentanyl 50 mcg 09/28/18 09:23 09/28/18 18:09 Sublimaze IV 50 mcg Q2H PRN Administration MOUTH PAIN Haloperidol Lactate 5 mg 09/28/18 10:00 09/30/18 10:19 Haldol IV 5 mg Q6H KAILA Administration Hydralazine HCl 10 mg 09/22/18 19:30 09/28/18 21:30 Apresoline IV 10 mg Q4HR PRN Administration SBP>160 Hydralazine HCl 50 mg 09/29/18 14:00 09/30/18 08:15 Apresoline PO Not Given TID KAILA Dexmedetomidine HCl 200 mcg/ 50 mls @ 3.63 mls/hr 09/28/18 10:00 09/30/18 10:16 Sodium Chloride IV 0.2 mcg/kg/hr TITRATE KAILA 3.63 mls/hr Titration Protocol 0.2 MCG/KG/HR Sodium Chloride 100 mls @ 999 mls/hr 09/29/18 09:26 Nacl 0.9% IV CAROLINE PRN Hypotension Insulin Glargine 5 units 09/28/18 22:00 09/29/18 23:18 Lantus SUB-Q 5 units QHS KAILA Administration Insulin Human Lispro 0 unit 09/22/18 06:00 09/30/18 06:13 Humalog SUB-Q Not Given Q6HR [facility] Protocol Lorazepam 1 mg 09/23/18 10:06 09/29/18 20:32 Ativan IV 1 mg Q4H PRN Administration Agitation Simple Syrup 15 ml 09/23/18 13:57 Simple Syrup FEEDTUBE PRN PRN Hypoglycemia Simple Syrup 30 ml 09/23/18 13:57 Simple Syrup FEEDTUBE PRN PRN Hypoglycemia Sodium Bicarbonate 325 mg 09/23/18 13:57 Sodium Bicarbonate FEEDTUBE PRN PRN For Clogged Feeding Tube Sodium Chloride 10 ml 09/22/18 10:00 09/30/18 10:20 Sodium Chloride Flush Syringe 10 Ml IV 10 ml BID KAILA Administration Sodium Chloride 10 ml 09/22/18 04:14 Sodium Chloride Flush Syringe 10 Ml IV PRN PRN LINE FLUSH
[2018-09-30] MEDS: SENOKOT S PO SCH ×2 (12:32→21:53)
--- NOTE | 2018-09-30 12:56 | Progress Note ---
Assessment and Plan 68 y/o female with acute respiratory failure and ESRD. 1. Attempt EXtubation 2. Will order bipap PRN 3. Changed PRN Haldol to scheduled, this could be some delirium and added PRN fentanyl pushes. Left Ativan at current dosing 4. Hold on EEG for now 5. HD per renal CCT 31 minutes. Subjective Date of service: 09/30/18 Principal diagnosis: acute respiratory failure, end-stage renal disease, AMS Interval history: No acute events. Tolerated PSV all day yesterday. Has not had BM. Son at bedside and updated on current state. Objective Vital Signs - 12hr 09/30/18 09/30/18 09/30/18 01:00 01:15 01:30 Temperature Pulse Rate 96 H 105 H 159 H Pulse Rate [ From Monitor] Respiratory 27 H 22 21 Rate Respiratory Rate [ Generalized] Blood Pressure 154/53 137/63 154/53 O2 Sat by Pulse 100 97 100 Oximetry 09/30/18 09/30/18 09/30/18 01:46 02:00 02:15 Temperature Pulse Rate 113 H 87 79 Pulse Rate [ From Monitor] Respiratory 26 H 20 13 Rate Respiratory Rate [ Generalized] Blood Pressure 177/59 137/63 135/51 O2 Sat by Pulse 100 100 100 Oximetry 09/30/18 09/30/18 09/30/18 02:30 02:45 03:00 Temperature Pulse Rate 91 H 75 76 Pulse Rate [ From Monitor] Respiratory 16 18 15 Rate Respiratory Rate [ Generalized] Blood Pressure 114/44 113/48 113/48 O2 Sat by Pulse 100 100 100 Oximetry 09/30/18 09/30/18 09/30/18 03:09 03:15 03:30 Temperature Pulse Rate 87 94 H 78 Pulse Rate [ From Monitor] Respiratory 25 H 16 Rate Respiratory Rate [ Generalized] Blood Pressure 136/34 161/61 134/46 O2 Sat by Pulse 100 100 100 Oximetry 09/30/18 09/30/18 09/30/18 03:36 03:45 04:00 Temperature 98.9 F Pulse Rate 75 74 Pulse Rate [ 69 From Monitor] Respiratory 16 16 Rate Respiratory Rate [ Generalized] Blood Pressure 106/45 112/41 O2 Sat by Pulse 100 100 Oximetry 09/30/18 09/30/18 09/30/18 04:15 04:30 04:45 Temperature Pulse Rate 75 70 72 Pulse Rate [ From Monitor] Respiratory 16 12 11 L Rate Respiratory Rate [ Generalized] Blood Pressure 114/43 105/42 101/41 O2 Sat by Pulse 100 100 100 Oximetry 09/30/18 09/30/18 09/30/18 05:00 05:16 05:30 Temperature Pulse Rate 73 75 67 Pulse Rate [ From Monitor] Respiratory 16 16 16 Rate Respiratory Rate [ Generalized] Blood Pressure 125/44 126/45 105/40 O2 Sat by Pulse 100 100 100 Oximetry 09/30/18 09/30/18 09/30/18 05:46 06:00 06:15 Temperature Pulse Rate 66 77 77 Pulse Rate [ From Monitor] Respiratory 16 17 20 Rate Respiratory Rate [ Generalized] Blood Pressure 114/42 121/42 121/42 O2 Sat by Pulse 100 100 100 Oximetry 09/30/18 09/30/18 09/30/18 06:16 06:30 06:45 Temperature Pulse Rate 61 63 62 Pulse Rate [ From Monitor] Respiratory 16 16 Rate Respiratory Rate [ Generalized] Blood Pressure 118/42 116/41 111/42 O2 Sat by Pulse 100 100 100 Oximetry 09/30/18 09/30/18 09/30/18 06:46 07:00 07:15 Temperature Pulse Rate 62 62 75 Pulse Rate [ From Monitor] Respiratory 12 16 8 L Rate Respiratory Rate [ Generalized] Blood Pressure 111/42 111/42 O2 Sat by Pulse 100 100 100 Oximetry 09/30/18 09/30/18 09/30/18 07:30 07:45 08:00 Temperature 99.4 F Pulse Rate 65 86 Pulse Rate [ 65 From Monitor] Respiratory 14 11 L 17 Rate Respiratory Rate [ Generalized] Blood Pressure 92/44 92/44 O2 Sat by Pulse 100 100 100 Oximetry 09/30/18 09/30/18 09/30/18 08:01 08:15 08:31 Temperature Pulse Rate 64 65 87 Pulse Rate [ From Monitor] Respiratory 16 16 18 Rate Respiratory Rate [ Generalized] Blood Pressure 104/41 104/41 104/41 O2 Sat by Pulse 100 100 97 Oximetry 09/30/18 09/30/18 09/30/18 08:34 08:45 09:01 Temperature Pulse Rate 65 62 59 L Pulse Rate [ From Monitor] Respiratory 16 16 Rate Respiratory Rate [ Generalized] Blood Pressure 104/41 109/43 O2 Sat by Pulse 100 100 Oximetry 09/30/18 09/30/18 09/30/18 09:15 09:31 09:45 Temperature Pulse Rate 58 L 56 L 77 Pulse Rate [ From Monitor] Respiratory 16 16 15 Rate Respiratory Rate [ Generalized] Blood Pressure 108/45 113/47 113/47 O2 Sat by Pulse 100 100 100 Oximetry 09/30/18 09/30/18 09/30/18 09:50 10:00 10:01 Temperature Pulse Rate 63 62 Pulse Rate [ From Monitor] Respiratory 20 15 Rate Respiratory 16 Rate [ Generalized] Blood Pressure 136/49 103/46 O2 Sat by Pulse 100 100 Oximetry 09/30/18 09/30/18 09/30/18 10:15 10:30 10:45 Temperature Pulse Rate 63 63 61 Pulse Rate [ From Monitor] Respiratory 19 18 17 Rate Respiratory Rate [ Generalized] Blood Pressure 103/46 114/40 114/40 O2 Sat by Pulse 100 100 100 Oximetry 09/30/18 09/30/18 09/30/18 11:01 11:15 11:31 Temperature Pulse Rate 62 59 L 78 Pulse Rate [ From Monitor] Respiratory 17 17 23 Rate Respiratory Rate [ Generalized] Blood Pressure 110/42 110/42 110/50 O2 Sat by Pulse 100 100 100 Oximetry 09/30/18 09/30/18 09/30/18 11:45 12:00 12:01 Temperature 99.1 F Pulse Rate 69 68 Pulse Rate [ From Monitor] Respiratory 19 19 Rate Respiratory Rate [ Generalized] Blood Pressure 110/50 120/42 O2 Sat by Pulse 100 100 Oximetry 09/30/18 12:15 Temperature Pulse Rate 124 H Pulse Rate [ From Monitor] Respiratory 42 H Rate Respiratory Rate [ Generalized] Blood Pressure 120/42 O2 Sat by Pulse 96 Oximetry Constitutional: no acute distress, other (orally intubated but not following commands this am. More movement in bed.) Eyes: non-icteric ENT: oropharynx moist, other (orally intubated) Effort: normal Ascultation: Bilateral: clear, diminished breath sounds Cardiovascular: regular rate and rhythm Gastrointestinal: normoactive bowel sounds, non-distended Integumentary: normal Extremities: no cyanosis, no edema Neurologic: other (RASS -1) CBC and BMP: 09/29/18 10:48 09/28/18 04:39 ABG, PT/INR, D-dimer: ABG POC ABG pH 7.388 (7.35-7.45) 09/29/18 09:54 POC ABG pCO2 42.2 (35-45) 09/29/18 09:54 POC ABG pO2 72 (80-105) L 09/29/18 09:54 POC ABG HCO3 25.4 09/29/18 09:54 POC ABG Total CO2 27 09/29/18 09:54 POC ABG O2 Sat 94 09/29/18 09:54 PT/INR, D-dimer D-Dimer 4401.15 ng/mlDDU (0-234) H 09/21/18 22:56 Abnormal lab findings: Abnormal Labs 09/21/18 09/21/18 09/21/18 22:56 22:56 22:56 WBC RBC 3.05 L Hgb 9.0 L Hct 26.9 L Lymph % (Auto) 9.3 L [place] % (Auto) Lymph # 0.7 L [place] # Seg Neutrophils % 84.0 H Seg Neuts % (Manual) Lymphocytes % (Manual) Seg Neutrophils # Man Lymphocytes # (Manual) D-Dimer POC ABG pH POC ABG pCO2 POC ABG pO2 Sodium Potassium 5.2 H Chloride Carbon Dioxide 17 L BUN 53 H Creatinine 6.7 H Glucose 307 H POC Glucose Lactic Acid Calcium 8.2 L Phosphorus Iron TIBC Transferrin CK-MB (CK-2) CK-MB (CK-2) Rel Index Troponin T Serum Total Protein Albumin 3.6 L Wzedf-8-Nigwbaozr PEP Interpretation Triglycerides Cholesterol LDL Cholesterol Direct PTH Intact Urine WBC (Auto) Urine Creatinine Salicylates < 0.3 L Acetaminophen 09/21/18 09/21/18 09/21/18 22:56 22:56 22:56 WBC RBC Hgb Hct Lymph % (Auto) [place] % (Auto) Lymph # [place] # Seg Neutrophils % Seg Neuts % (Manual) Lymphocytes % (Manual) Seg Neutrophils # Man Lymphocytes # (Manual) D-Dimer 4401.15 H POC ABG pH POC ABG pCO2 POC ABG pO2 Sodium Potassium Chloride Carbon Dioxide BUN Creatinine Glucose POC Glucose Lactic Acid 3.70 H* Calcium Phosphorus Iron TIBC Transferrin CK-MB (CK-2) CK-MB (CK-2) Rel Index Troponin T Serum Total Protein Albumin Jxmfn-5-Ufbqinfqw PEP Interpretation Triglycerides Cholesterol LDL Cholesterol Direct PTH Intact Urine WBC (Auto) Urine Creatinine Salicylates Acetaminophen < 5.0 L 09/21/18 09/21/18 09/22/18 23:14 23:57 00:48 WBC RBC Hgb Hct Lymph % (Auto) [place] % (Auto) Lymph # [place] # Seg Neutrophils % Seg Neuts % (Manual) Lymphocytes % (Manual) Seg Neutrophils # Man Lymphocytes # (Manual) D-Dimer POC ABG pH 7.234 L 7.322 L POC ABG pCO2 POC ABG pO2 118 H 142 H Sodium Potassium Chloride Carbon Dioxide BUN Creatinine Glucose POC Glucose Lactic Acid Calcium Phosphorus Iron TIBC Transferrin CK-MB (CK-2) CK-MB (CK-2) Rel Index Troponin T 0.062 H D Serum Total Protein Albumin Lvgik-6-Neqdyjeoh PEP Interpretation Triglycerides 208 H Cholesterol 206 H LDL Cholesterol Direct 143 H PTH Intact Urine WBC (Auto) Urine Creatinine Salicylates Acetaminophen 09/22/18 09/22/18 09/22/18 04:50 05:03 06:43 WBC RBC Hgb Hct Lymph % (Auto) [place] % (Auto) Lymph # [place] # Seg Neutrophils % Seg Neuts % (Manual) Lymphocytes % (Manual) Seg Neutrophils # Man Lymphocytes # (Manual) D-Dimer POC ABG pH 7.556 H POC ABG pCO2 22.4 L POC ABG pO2 176 H Sodium Potassium Chloride Carbon Dioxide BUN Creatinine Glucose POC Glucose 116 H Lactic Acid Calcium Phosphorus Iron TIBC Transferrin CK-MB (CK-2) 4.1 H CK-MB (CK-2) Rel Index 4.7 H Troponin T 0.107 H* D Serum Total Protein Albumin Wywxg-5-Iycbupisw PEP Interpretation Triglycerides Cholesterol LDL Cholesterol Direct PTH Intact Urine WBC (Auto) Urine Creatinine Salicylates Acetaminophen 09/22/18 09/22/18 09/22/18 09:12 10:26 18:00 WBC RBC Hgb Hct Lymph % (Auto) [place] % (Auto) Lymph # [place] # Seg Neutrophils % Seg Neuts % (Manual) Lymphocytes % (Manual) Seg Neutrophils # Man Lymphocytes # (Manual) D-Dimer POC ABG pH POC ABG pCO2 POC ABG pO2 Sodium Potassium Chloride Carbon Dioxide BUN Creatinine 6.7 H Glucose POC Glucose 124 H Lactic Acid Calcium Phosphorus Iron TIBC Transferrin CK-MB (CK-2) CK-MB (CK-2) Rel Index Troponin T 0.074 H D Serum Total Protein Albumin Sjiht-3-Vuofrlscu PEP Interpretation Triglycerides Cholesterol LDL Cholesterol Direct PTH Intact Urine WBC (Auto) Urine Creatinine Salicylates Acetaminophen 09/23/18 09/23/18 09/23/18 03:57 04:24 04:24 WBC RBC 2.85 L Hgb 8.0 L Hct 24.4 L Lymph % (Auto) [place] % (Auto) 12.6 H Lymph # [place] # 1.1 H Seg Neutrophils % Seg Neuts % (Manual) Lymphocytes % (Manual) Seg Neutrophils # Man Lymphocytes # (Manual) D-Dimer POC ABG pH POC ABG pCO2 27.2 L POC ABG pO2 113 H Sodium Potassium Chloride 113.4 H Carbon Dioxide 19 L BUN 54 H Creatinine 7.0 H Glucose POC Glucose Lactic Acid Calcium 8.3 L Phosphorus Iron TIBC Transferrin CK-MB (CK-2) CK-MB (CK-2) Rel Index Troponin T Serum Total Protein Albumin Mmhdk-0-Eclbqmneb PEP Interpretation Triglycerides Cholesterol LDL Cholesterol Direct PTH Intact Urine WBC (Auto) Urine Creatinine Salicylates Acetaminophen 09/23/18 09/23/18 09/23/18 05:32 16:00 16:00 WBC RBC Hgb Hct Lymph % (Auto) [place] % (Auto) Lymph # [place] # Seg Neutrophils % Seg Neuts % (Manual) Lymphocytes % (Manual) Seg Neutrophils # Man Lymphocytes # (Manual) D-Dimer POC ABG pH POC ABG pCO2 POC ABG pO2 Sodium Potassium Chloride Carbon Dioxide BUN Creatinine Glucose POC Glucose Lactic Acid Calcium Phosphorus Iron TIBC Transferrin CK-MB (CK-2) CK-MB (CK-2) Rel Index Troponin T Serum Total Protein 5.2 L Albumin 2.5 L Edcwt-4-Dnhwyymbo 0.4 H PEP Interpretation see below H Triglycerides Cholesterol LDL Cholesterol Direct PTH Intact Urine WBC (Auto) 13.0 H Urine Creatinine 80.7 H Salicylates Acetaminophen 09/23/18 09/23/18 09/24/18 18:47 23:53 04:28 WBC RBC 2.66 L Hgb 7.6 L Hct 22.5 L Lymph % (Auto) [place] % (Auto) Lymph # [place] # Seg Neutrophils % Seg Neuts % (Manual) Lymphocytes % (Manual) Seg Neutrophils # Man Lymphocytes # (Manual) D-Dimer POC ABG pH POC ABG pCO2 POC ABG pO2 Sodium Potassium Chloride Carbon Dioxide BUN Creatinine Glucose POC Glucose 115 H 145 H Lactic Acid Calcium Phosphorus Iron TIBC Transferrin CK-MB (CK-2) CK-MB (CK-2) Rel Index Troponin T Serum Total Protein Albumin Rydcs-0-Abykajitu PEP Interpretation Triglycerides Cholesterol LDL Cholesterol Direct PTH Intact Urine WBC (Auto) Urine Creatinine Salicylates Acetaminophen 09/24/18 09/24/18 09/24/18 04:28 04:56 05:33 WBC RBC Hgb Hct Lymph % (Auto) [place] % (Auto) Lymph # [place] # Seg Neutrophils % Seg Neuts % (Manual) Lymphocytes % (Manual) Seg Neutrophils # Man Lymphocytes # (Manual) D-Dimer POC ABG pH 7.551 H POC ABG pCO2 32.0 L POC ABG pO2 133 H Sodium Potassium Chloride Carbon Dioxide BUN 27 H Creatinine 4.8 H Glucose 129 H POC Glucose 127 H Lactic Acid Calcium 8.0 L Phosphorus Iron TIBC Transferrin CK-MB (CK-2) CK-MB (CK-2) Rel Index Troponin T Serum Total Protein Albumin Xifoe-6-Ezeddkrfu PEP Interpretation Triglycerides Cholesterol LDL Cholesterol Direct PTH Intact Urine WBC (Auto) Urine Creatinine Salicylates Acetaminophen 09/24/18 09/24/18 09/24/18 12:39 19:57 23:53 WBC RBC Hgb Hct Lymph % (Auto) [place] % (Auto) Lymph # [place] # Seg Neutrophils % Seg Neuts % (Manual) Lymphocytes % (Manual) Seg Neutrophils # Man Lymphocytes # (Manual) D-Dimer POC ABG pH POC ABG pCO2 POC ABG pO2 Sodium Potassium Chloride Carbon Dioxide BUN Creatinine Glucose POC Glucose 171 H 209 H 158 H Lactic Acid Calcium Phosphorus Iron TIBC Transferrin CK-MB (CK-2) CK-MB (CK-2) Rel Index Troponin T Serum Total Protein Albumin Kiypj-2-Qzybeuqlu PEP Interpretation Triglycerides Cholesterol LDL Cholesterol Direct PTH Intact Urine WBC (Auto) Urine Creatinine Salicylates Acetaminophen 09/25/18 09/25/18 09/25/18 04:06 04:06 05:16 WBC RBC 2.73 L Hgb 7.9 L Hct 23.4 L Lymph % (Auto) [place] % (Auto) Lymph # [place] # Seg Neutrophils % Seg Neuts % (Manual) Lymphocytes % (Manual) Seg Neutrophils # Man Lymphocytes # (Manual) D-Dimer POC ABG pH 7.477 H POC ABG pCO2 POC ABG pO2 122 H Sodium Potassium Chloride 97.2 L Carbon Dioxide BUN Creatinine 3.6 H Glucose 118 H POC Glucose Lactic Acid Calcium 8.2 L Phosphorus Iron TIBC Transferrin CK-MB (CK-2) CK-MB (CK-2) Rel Index Troponin T Serum Total Protein Albumin Tngzi-9-Orcxdsvbw PEP Interpretation Triglycerides Cholesterol LDL Cholesterol Direct PTH Intact Urine WBC (Auto) Urine Creatinine Salicylates Acetaminophen 09/25/18 09/25/18 09/25/18 05:55 12:29 16:21 WBC RBC Hgb Hct Lymph % (Auto) [place] % (Auto) Lymph # [place] # Seg Neutrophils % Seg Neuts % (Manual) Lymphocytes % (Manual) Seg Neutrophils # Man Lymphocytes # (Manual) D-Dimer POC ABG pH 7.216 L POC ABG pCO2 79.9 H POC ABG pO2 Sodium Potassium Chloride Carbon Dioxide BUN Creatinine Glucose POC Glucose 144 H 128 H Lactic Acid Calcium Phosphorus Iron TIBC Transferrin CK-MB (CK-2) CK-MB (CK-2) Rel Index Troponin T Serum Total Protein Albumin Uwutn-0-Cawvzqwnk PEP Interpretation Triglycerides Cholesterol LDL Cholesterol Direct PTH Intact Urine WBC (Auto) Urine Creatinine Salicylates Acetaminophen 09/25/18 09/25/18 09/25/18 18:27 18:44 23:56 WBC RBC Hgb Hct Lymph % (Auto) [place] % (Auto) Lymph # [place] # Seg Neutrophils % Seg Neuts % (Manual) Lymphocytes % (Manual) Seg Neutrophils # Man Lymphocytes # (Manual) D-Dimer POC ABG pH POC ABG pCO2 53.2 H POC ABG pO2 78 L Sodium Potassium Chloride Carbon Dioxide BUN Creatinine Glucose POC Glucose 264 H 170 H Lactic Acid Calcium Phosphorus Iron TIBC Transferrin CK-MB (CK-2) CK-MB (CK-2) Rel Index Troponin T Serum Total Protein Albumin Zchec-8-Iuhmlyjau PEP Interpretation Triglycerides Cholesterol LDL Cholesterol Direct PTH Intact Urine WBC (Auto) Urine Creatinine Salicylates Acetaminophen 09/26/18 09/26/18 09/26/18 03:46 04:51 05:04 WBC RBC Hgb Hct Lymph % (Auto) [place] % (Auto) Lymph # [place] # Seg Neutrophils % Seg Neuts % (Manual) Lymphocytes % (Manual) Seg Neutrophils # Man Lymphocytes # (Manual) D-Dimer POC ABG pH 7.584 H POC ABG pCO2 30.9 L POC ABG pO2 151 H Sodium Potassium Chloride 95.5 L Carbon Dioxide BUN 34 H Creatinine 5.4 H Glucose 185 H POC Glucose 186 H Lactic Acid Calcium Phosphorus Iron TIBC Transferrin CK-MB (CK-2) CK-MB (CK-2) Rel Index Troponin T Serum Total Protein Albumin Ymdbu-3-Wckpwtiqp PEP Interpretation Triglycerides Cholesterol LDL Cholesterol Direct PTH Intact Urine WBC (Auto) Urine Creatinine Salicylates Acetaminophen 09/26/18 09/26/18 09/26/18 06:23 12:41 17:55 WBC RBC Hgb Hct Lymph % (Auto) [place] % (Auto) Lymph # [place] # Seg Neutrophils % Seg Neuts % (Manual) Lymphocytes % (Manual) Seg Neutrophils # Man Lymphocytes # (Manual) D-Dimer POC ABG pH 7.330 L POC ABG pCO2 49.9 H POC ABG pO2 Sodium Potassium Chloride Carbon Dioxide BUN Creatinine Glucose POC Glucose 182 H 171 H Lactic Acid Calcium Phosphorus Iron TIBC Transferrin CK-MB (CK-2) CK-MB (CK-2) Rel Index Troponin T Serum Total Protein Albumin Cxuhd-4-Bfghbtqrm PEP Interpretation Triglycerides Cholesterol LDL Cholesterol Direct PTH Intact Urine WBC (Auto) Urine Creatinine Salicylates Acetaminophen 09/27/18 09/27/18 09/27/18 00:06 05:11 05:36 WBC RBC Hgb Hct Lymph % (Auto) [place] % (Auto) Lymph # [place] # Seg Neutrophils % Seg Neuts % (Manual) Lymphocytes % (Manual) Seg Neutrophils # Man Lymphocytes # (Manual) D-Dimer POC ABG pH POC ABG pCO2 POC ABG pO2 136 H Sodium Potassium Chloride Carbon Dioxide BUN Creatinine Glucose POC Glucose 170 H 115 H Lactic Acid Calcium Phosphorus Iron TIBC Transferrin CK-MB (CK-2) CK-MB (CK-2) Rel Index Troponin T Serum Total Protein Albumin Xwhcf-5-Jrwmepzdj PEP Interpretation Triglycerides Cholesterol LDL Cholesterol Direct PTH Intact Urine WBC (Auto) Urine Creatinine Salicylates Acetaminophen 09/27/18 09/27/18 09/27/18 06:05 11:51 18:17 WBC RBC Hgb Hct Lymph % (Auto) [place] % (Auto) Lymph # [place] # Seg Neutrophils % Seg Neuts % (Manual) Lymphocytes % (Manual) Seg Neutrophils # Man Lymphocytes # (Manual) D-Dimer POC ABG pH POC ABG pCO2 POC ABG pO2 Sodium Potassium Chloride 95.0 L Carbon Dioxide BUN 39 H Creatinine 5.1 H Glucose 145 H POC Glucose 181 H 214 H Lactic Acid Calcium Phosphorus Iron TIBC Transferrin CK-MB (CK-2) CK-MB (CK-2) Rel Index Troponin T Serum Total Protein Albumin Kbhuu-5-Oqeknvjgb PEP Interpretation Triglycerides Cholesterol LDL Cholesterol Direct PTH Intact Urine WBC (Auto) Urine Creatinine Salicylates Acetaminophen 09/27/18 09/28/18 09/28/18 23:28 04:39 04:44 WBC RBC Hgb Hct Lymph % (Auto) [place] % (Auto) Lymph # [place] # Seg Neutrophils % Seg Neuts % (Manual) Lymphocytes % (Manual) Seg Neutrophils # Man Lymphocytes # (Manual) D-Dimer POC ABG pH POC ABG pCO2 POC ABG pO2 151 H Sodium 134 L Potassium Chloride 95.2 L Carbon Dioxide BUN 61 H Creatinine 7.2 H Glucose 165 H POC Glucose 127 H Lactic Acid Calcium 8.0 L Phosphorus Iron TIBC Transferrin CK-MB (CK-2) CK-MB (CK-2) Rel Index Troponin T Serum Total Protein Albumin Epbuj-5-Byhftckcc PEP Interpretation Triglycerides Cholesterol LDL Cholesterol Direct PTH Intact Urine WBC (Auto) Urine Creatinine Salicylates Acetaminophen 09/28/18 09/28/18 09/28/18 05:47 11:36 17:51 WBC RBC Hgb Hct Lymph % (Auto) [place] % (Auto) Lymph # [place] # Seg Neutrophils % Seg Neuts % (Manual) Lymphocytes % (Manual) Seg Neutrophils # Man Lymphocytes # (Manual) D-Dimer POC ABG pH POC ABG pCO2 POC ABG pO2 Sodium Potassium Chloride Carbon Dioxide BUN Creatinine Glucose POC Glucose 159 H 240 H 268 H Lactic Acid Calcium Phosphorus Iron TIBC Transferrin CK-MB (CK-2) CK-MB (CK-2) Rel Index Troponin T Serum Total Protein Albumin Igoxn-4-Aeqfbekcc PEP Interpretation Triglycerides Cholesterol LDL Cholesterol Direct PTH Intact Urine WBC (Auto) Urine Creatinine Salicylates Acetaminophen 09/28/18 09/29/18 09/29/18 23:24 05:20 09:45 WBC RBC Hgb Hct Lymph % (Auto) [place] % (Auto) Lymph # [place] # Seg Neutrophils % Seg Neuts % (Manual) Lymphocytes % (Manual) Seg Neutrophils # Man Lymphocytes # (Manual) D-Dimer POC ABG pH POC ABG pCO2 POC ABG pO2 56 L Sodium Potassium Chloride Carbon Dioxide BUN Creatinine Glucose POC Glucose 194 H 127 H Lactic Acid Calcium Phosphorus Iron TIBC Transferrin CK-MB (CK-2) CK-MB (CK-2) Rel Index Troponin T Serum Total Protein Albumin Ecrmm-8-[place] PEP Interpretation Triglycerides Cholesterol LDL Cholesterol Direct PTH Intact Urine WBC (Auto) Urine Creatinine Salicylates Acetaminophen 09/29/18 09/29/18 09/29/18 09:54 10:48 10:48 WBC 14.5 H RBC 2.67 L Hgb 7.4 L Hct 22.6 L Lymph % (Auto) [place] % (Auto) Lymph # [place] # Seg Neutrophils % Seg Neuts % (Manual) 90.0 H Lymphocytes % (Manual) 6.0 L Seg Neutrophils # Man 13.1 H Lymphocytes # (Manual) 0.9 L D-Dimer POC ABG pH POC ABG pCO2 POC ABG pO2 72 L Sodium Potassium Chloride Carbon Dioxide BUN Creatinine Glucose POC Glucose Lactic Acid Calcium Phosphorus 5.30 H Iron 15 L TIBC 146 L Transferrin 109 L CK-MB (CK-2) CK-MB (CK-2) Rel Index Troponin T Serum Total Protein Albumin Yeusz-2-Dydkmrgsx PEP Interpretation Triglycerides Cholesterol LDL Cholesterol Direct PTH Intact Urine WBC (Auto) Urine Creatinine Salicylates Acetaminophen 09/29/18 09/29/18 09/29/18 10:48 12:24 18:25 WBC RBC Hgb Hct Lymph % (Auto) [place] % (Auto) Lymph # [place] # Seg Neutrophils % Seg Neuts % (Manual) Lymphocytes % (Manual) Seg Neutrophils # Man Lymphocytes # (Manual) D-Dimer POC ABG pH POC ABG pCO2 POC ABG pO2 Sodium Potassium Chloride Carbon Dioxide BUN Creatinine Glucose POC Glucose 260 H 203 H Lactic Acid Calcium Phosphorus Iron TIBC Transferrin CK-MB (CK-2) CK-MB (CK-2) Rel Index Troponin T Serum Total Protein Albumin Cxvwv-6-Mjswmgpee PEP Interpretation Triglycerides Cholesterol LDL Cholesterol Direct PTH Intact 417.9 H Urine WBC (Auto) Urine Creatinine Salicylates Acetaminophen 09/30/18 09/30/18 09/30/18 00:14 05:12 12:06 WBC RBC Hgb Hct Lymph % (Auto) [place] % (Auto) Lymph # [place] # Seg Neutrophils % Seg Neuts % (Manual) Lymphocytes % (Manual) Seg Neutrophils # Man Lymphocytes # (Manual) D-Dimer POC ABG pH POC ABG pCO2 POC ABG pO2 Sodium Potassium Chloride Carbon Dioxide BUN Creatinine Glucose POC Glucose 260 H 136 H 193 H Lactic Acid Calcium Phosphorus Iron TIBC Transferrin CK-MB (CK-2) CK-MB (CK-2) Rel Index Troponin T Serum Total Protein Albumin Dggsl-2-Wfaqhfffa PEP Interpretation Triglycerides Cholesterol LDL Cholesterol Direct PTH Intact Urine WBC (Auto) Urine Creatinine Salicylates Acetaminophen
--- NOTE | 2018-09-30 12:58 | Event Note ---
Date: 09/30/18 Almost immediately post extubation, patient became tachypnic, tachycardic, hypertensive and had inspiratory upper airway noise that sounded like stridor. Placed on bipap and given racemic therapy. Mental status is stable, still awake and following commands. Son not at bedside yet. Will continue to assess. About 15 minuts after therapy and bipap, HR better and RR in the low 30's down from High 40's. Patient still remains awake. Will continue to evaluate
--- NOTE | 2018-09-30 13:52 | Progress Note ---
Assessment and Plan Follow pulmonary and nephrology recs. Currently stable cardiac status. Will follow on as needed basis. The patient has been seen in conjunction with Dr. SHADE Dale who agrees with the assessment and plan of care. - Patient Problems (1) Acute respiratory failure Current Visit: Yes Status: Acute (2) Altered mental status Current Visit: Yes Status: Acute (3) Pneumonia Current Visit: Yes Status: Acute Qualifiers: Pneumonia type: due to unspecified organism Laterality: unspecified laterality Lung location: unspecified part of lung Qualified Code(s): J18.9 - Pneumonia, unspecified organism (4) Sepsis Current Visit: Yes Status: Suspected Qualifiers: Sepsis type: sepsis due to unspecified organism Qualified Code(s): A41.9 - Sepsis, unspecified organism (5) Hypertension Current Visit: Yes Status: Chronic Qualifiers: Hypertension type: essential hypertension Qualified Code(s): I10 - Essential (primary) hypertension (6) Diabetes Current Visit: Yes Status: Chronic (7) CKD (chronic kidney disease) Current Visit: Yes Status: Chronic Qualifiers: Chronic kidney disease stage: unspecified stage Qualified Code(s): N18.9 - Chronic kidney disease, unspecified (8) Elevated troponin Current Visit: Yes Status: Acute (9) Anemia Current Visit: Yes Status: Chronic (10) Hyperkalemia Current Visit: Yes Status: Acute Subjective Date of service: 09/30/18 Principal diagnosis: acute respiratory failure, end-stage renal disease, AMS Interval history: pt remains intubated, agitated, restrained. in SR on telemetry. Objective Last Vital Signs Temp 99.1 F 09/30/18 12:00 Pulse 124 H 09/30/18 12:15 Resp 42 H 09/30/18 12:15 BP 120/42 09/30/18 12:15 Pulse Ox 96 09/30/18 12:15 - Physical Examination General: Other (intubated, FIO2 35, PEEP 6) HEENT: Positive: PERRL, EOMI, Normocephaly Neck: Positive: neck supple, trachea midline. Negative: JVD/HJR, Masses Cardiac: Positive: Reg Rate and Rhythm, S1/S2 Lungs: Positive: Decreased Breath Sounds Neuro: Positive: Other (intubated) Abdomen: Positive: Unremarkable, Soft Skin: Negative: Rash, Wound Musculoskeletal: No Fluid Collection, No Pain Extremities: Present: edema (trace BLE) - Imaging and Cardiology EKG: report reviewed, image reviewed Echo: report reviewed (EF 50-55%, mild LVH, LA mildly dilated, mild MR, trace TR, right pleural effusion. ) - EKG Sinus rhythms and dysrhythmias: sinus rhythm
--- NOTE | 2018-09-30 14:21 | Progress Note ---
Assessment and Plan Assessment and plan: 68 year old woman history of CHF, hypertension, diabetes, chronic kidney disease was brought to the emergency room for shortness of breath. The history is per the son Roshan, he stated he was not at the scene, the patient was at [facility] when her symptoms started. Patient was intubated in the emergency room, she is sedated, review of system is unobtainable. Nurse reported that the patient had copious amount of vomiting in the ER (1) Acute respiratory failure Current Visit: Yes Status: Acute Plan to address problem: Acute respiratory failure seems to be a little more alert today. Currently weaning patient off of fentanyl and propofol and attempts to extubate soon. Agree with possibility of anoxia again hopefully not severe enough to affect quality of life too much. EEG should be helpful. Also will benefit from further evaluation after extubation. Patient extubated this afternoon. Experinced some tachycardia and tachypenia post extubation but settled down some on BIPAP. continue to monitor (2)NSTEMI TYPE 2 Elevated troponin Current Visit: Yes Status: Acute Plan to address problem: Elevated troponin non-STEMI2. Aspirin beta lou continue current anticoagulation cardiology following. (3) Sepsis secondary Pneumonia Current Visit: Yes Status: Acute Qualifiers: Pneumonia type: due to unspecified organism Laterality: unspecified laterality Lung location: unspecified part of lung Qualified Code(s): J18.9 - Pneumonia, unspecified organism Plan to address problem: Patient with possible aspiration pneumonia currently not receiving any antibiotics at this time.. Recent culture data unremarkable. Has remained afebrile and no leukocytosis. We'll observe closely because of high risk of aspiration. Left lower lobe atelectasis seems to be secondary to volume. (4) Respiratory failure Current Visit: Yes Status: Acute Qualifiers: Chronicity: acute Respiratory failure complication: hypoxia Qualified Code(s): J96.01 - Acute respiratory failure with hypoxia Plan to address problem: Again pending weaning and extubation. (5) CKD (chronic kidney disease) Current Visit: Yes Status: Chronic Qualifiers: Chronic kidney disease stage: unspecified stage Qualified Code(s): N18.9 - Chronic kidney disease, unspecified Plan to address problem: Chronic kidney disease continue hemodialysis tolerated Saturday. Status post right IJ Vas-Cath placement on 09/23/2018. -started on HD Discuss possible placement of permacath. will discuss with Pulmonary (6) Diabetes Current Visit: Yes Status: Chronic Plan to address problem: At present has fair control diabetes with sliding scale. We'll consider adding long-acting insulin may be 5 mg of Lantus daily at bedtime and titrate accordingly. (7) Hypertension Current Visit: Yes Status: Chronic Qualifiers: Hypertension type: essential hypertension Qualified Code(s): I10 - Essential (primary) hypertension Plan to address problem: Blood pressure much better controlled today. (8) Metabolic Encephalopathy Unsure etiology. Patient noted to be significantly hypoxic on EMS arrival, Appears to be improving. (9)Type 2 diabetes mellitus Current Visit: Yes Status: Chronic The high probability of a clinically significant, sudden or life threatening deterioration of the [pulmonary, cardiac, renal] system(s) required my full and direct attention, intervention and personal management. The aggregate critical care time was [35]minutes. This time is in addition to time spent performing reported procedures but includes the following: [x] Data Review and interpretation [x] Patient assessment and monitoring of vital signs [x] Documentation [x] Medication orders and management History Interval history: Patient is examined this morning he remained intubated, But was able to respond by squeezing the writers hand on command and opening eyes, also nodded to the affirmative when advised on the plan for liberation from the formerly [facility] Hospitalist Physical - Physical exam Narrative exam: VITAL SIGNS: Reviewed. GENERAL: Remains ON Mechanical ventilatory support this am HEAD: No signs of head trauma. EYES: Pupils are equal. EARS: Hearing grossly intact. MOUTH: , ETT NECK: No adenopathy, no JVD. CHEST: Chest with clear breath sounds bilaterally. No wheezes, rales, or rhonchi. CARDIAC: Regular rate and rhythm. S1 and S2, without murmurs, gallops, or rubs. VASCULAR: No Edema. Peripheral pulses normal and equal in all extremities. ABDOMEN: Soft, without detectable tenderness. No sign of distention. No rebound or guarding, and no masses palpated. Bowel Sounds normal. MUSCULOSKELETAL: Good range of motion of all major joints. Extremities without clubbing, cyanosis or edema. NEUROLOGIC EXAM: Awake orientation unable to assess at this time. No focal sensory or strength deficits. PSYCHIATRIC: Unable to assess SKIN: No rash or lesions. - Constitutional Vitals: Temp Pulse Resp BP Pulse Ox 99.1 F 124 H 42 H 120/42 96 09/30/18 12:00 09/30/18 12:15 09/30/18 12:15 09/30/18 12:15 09/30/18 12:15 General appearance: Present: no acute distress, mild distress, other (intubated, sedated) Results - Labs CBC & Chem 7: 09/29/18 10:48 09/28/18 04:39 Labs: Laboratory Last Values WBC 14.5 K/mm3 (4.5-11.0) H 09/29/18 10:48 RBC 2.67 M/mm3 (3.65-5.03) L 09/29/18 10:48 Hgb 7.4 gm/dl (10.1-14.3) L 09/29/18 10:48 Hct 22.6 % (30.3-42.9) L 09/29/18 10:48 MCV 85 fl (79-97) 09/29/18 10:48 MCH 28 pg (28-32) 09/29/18 10:48 MCHC 33 % (30-34) 09/29/18 10:48 RDW 14.6 % (13.2-15.2) 09/29/18 10:48 Plt Count 204 K/mm3 (140-440) 09/29/18 10:48 Lymph % (Auto) 16.7 % (13.4-35.0) 09/23/18 04:24 [place] % (Auto) 12.6 % (0.0-7.3) H 09/23/18 04:24 Eos % (Auto) 3.5 % (0.0-4.3) 09/23/18 04:24 Baso % (Auto) 1.5 % (0.0-1.8) 09/23/18 04:24 Lymph # 1.4 K/mm3 (1.2-5.4) 09/23/18 04:24 [place] # 1.1 K/mm3 (0.0-0.8) H 09/23/18 04:24 Eos # 0.3 K/mm3 (0.0-0.4) 09/23/18 04:24 Baso # 0.1 K/mm3 (0.0-0.1) 09/23/18 04:24 Add Manual Diff Complete 09/29/18 10:48 Total Counted 100 09/29/18 10:48 Seg Neutrophils % 65.7 % (40.0-70.0) 09/23/18 04:24 Seg Neuts % (Manual) 90.0 % (40.0-70.0) H 09/29/18 10:48 Band Neutrophils % 0 % 09/29/18 10:48 Lymphocytes % (Manual) 6.0 % (13.4-35.0) L 09/29/18 10:48 Reactive Lymphs % (Man) 0 % 09/29/18 10:48 Monocytes % (Manual) 0 % (0.0-7.3) 09/29/18 10:48 Eosinophils % (Manual) 1.0 % (0.0-4.3) 09/29/18 10:48 Basophils % (Manual) 1.0 % (0.0-1.8) 09/29/18 10:48 Metamyelocytes % 2.0 % 09/29/18 10:48 Myelocytes % 0 % 09/29/18 10:48 Promyelocytes % 0 % 09/29/18 10:48 Blast Cells % 0 % 09/29/18 10:48 Nucleated RBC % Not Reportable 09/29/18 10:48 Seg Neutrophils # 5.5 K/mm3 (1.8-7.7) 09/23/18 04:24 Seg Neutrophils # Man 13.1 K/mm3 (1.8-7.7) H 09/29/18 10:48 Band Neutrophils # 0.0 K/mm3 09/29/18 10:48 Lymphocytes # (Manual) 0.9 K/mm3 (1.2-5.4) L 09/29/18 10:48 Abs React Lymphs (Man) 0.0 K/mm3 09/29/18 10:48 Monocytes # (Manual) 0.0 K/mm3 (0.0-0.8) 09/29/18 10:48 Eosinophils # (Manual) 0.1 K/mm3 (0.0-0.4) 09/29/18 10:48 Basophils # (Manual) 0.1 K/mm3 (0.0-0.1) 09/29/18 10:48 Metamyelocytes # 0.3 K/mm3 09/29/18 10:48 Myelocytes # 0.0 K/mm3 09/29/18 10:48 Promyelocytes # 0.0 K/mm3 09/29/18 10:48 Blast Cells # 0.0 K/mm3 09/29/18 10:48 WBC Morphology Not Reportable 09/29/18 10:48 Hypersegmented Neuts Not Reportable 09/29/18 10:48 Hyposegmented Neuts Not Reportable 09/29/18 10:48 Hypogranular Neuts Not Reportable 09/29/18 10:48 Smudge Cells Not Reportable 09/29/18 10:48 Toxic Granulation Not Reportable 09/29/18 10:48 Toxic Vacuolation Not Reportable 09/29/18 10:48 Dohle Bodies Not Reportable 09/29/18 10:48 Pelger-Huet Anomaly Not Reportable 09/29/18 10:48 Kevin Rods Not Reportable 09/29/18 10:48 Platelet Estimate Consistent w auto 09/29/18 10:48 Clumped Platelets Not Reportable 09/29/18 10:48 Plt Clumps, EDTA Not Reportable 09/29/18 10:48 Large Platelets Not Reportable 09/29/18 10:48 Giant Platelets Not Reportable 09/29/18 10:48 Platelet Satelliting Not Reportable 09/29/18 10:48 Plt Morphology Comment Not Reportable 09/29/18 10:48 RBC Morphology Not Reportable 09/29/18 10:48 Dimorphic RBCs Not Reportable 09/29/18 10:48 Polychromasia Not Reportable 09/29/18 10:48 Hypochromasia Not Reportable 09/29/18 10:48 Poikilocytosis Not Reportable 09/29/18 10:48 Anisocytosis 1+ 09/29/18 10:48 Microcytosis Not Reportable 09/29/18 10:48 Macrocytosis Not Reportable 09/29/18 10:48 Spherocytes Not Reportable 09/29/18 10:48 Pappenheimer Bodies Not Reportable 09/29/18 10:48 Sickle Cells Not Reportable 09/29/18 10:48 Target Cells Not Reportable 09/29/18 10:48 Tear Drop Cells Not Reportable 09/29/18 10:48 Ovalocytes Not Reportable 09/29/18 10:48 Helmet Cells Not Reportable 09/29/18 10:48 [place] Bodies Not Reportable 09/29/18 10:48 [place] Rings Not Reportable 09/29/18 10:48 [place] Cells Not Reportable 09/29/18 10:48 Bite Cells Not Reportable 09/29/18 10:48 Crenated Cell Not Reportable 09/29/18 10:48 Elliptocytes Not Reportable 09/29/18 10:48 Acanthocytes (Spur) Not Reportable 09/29/18 10:48 Rouleaux Not Reportable 09/29/18 10:48 Hemoglobin C Crystals Not Reportable 09/29/18 10:48 Schistocytes Not Reportable 09/29/18 10:48 Malaria parasites Not Reportable 09/29/18 10:48 Sal Bodies Not Reportable 09/29/18 10:48 Hem Pathologist Commnt No 09/29/18 10:48 D-Dimer 4401.15 ng/mlDDU (0-234) H 09/21/18 22:56 POC ABG pH 7.388 (7.35-7.45) 09/29/18 09:54 POC ABG pCO2 42.2 (35-45) 09/29/18 09:54 POC ABG pO2 72 (80-105) L 09/29/18 09:54 POC ABG HCO3 25.4 09/29/18 09:54 POC ABG Total CO2 27 09/29/18 09:54 POC ABG O2 Sat 94 09/29/18 09:54 POC ABG Base Excess 0 09/29/18 09:54 FiO2 30 % 09/29/18 09:54 Sodium 134 mmol/L (137-145) L 09/28/18 04:39 Potassium 4.3 mmol/L (3.6-5.0) 09/28/18 04:39 Chloride 95.2 mmol/L (98-107) L 09/28/18 04:39 Carbon Dioxide 24 mmol/L (22-30) 09/28/18 04:39 Anion Gap 19 mmol/L 09/28/18 04:39 BUN 61 mg/dL (7-17) H 09/28/18 04:39 Creatinine 7.2 mg/dL (0.7-1.2) H 09/28/18 04:39 Estimated GFR 7 ml/min 09/28/18 04:39 BUN/Creatinine Ratio 8 % 09/28/18 04:39 Glucose 165 mg/dL (65-100) H 09/28/18 04:39 POC Glucose 193 (70-105) H 09/30/18 12:06 Lactic Acid 1.70 mmol/L (0.7-2.0) 09/22/18 04:50 Calcium 8.0 mg/dL (8.4-10.2) L 09/28/18 04:39 Phosphorus 5.30 mg/dL (2.5-4.5) H 09/29/18 10:48 Iron 15 ug/dL (37-170) L 09/29/18 10:48 TIBC 146 mcg/dL (250-450) L 09/29/18 10:48 % Saturation 10.27 % 09/29/18 10:48 Transferrin 109 mg/dl (192-382) L 09/29/18 10:48 Total Bilirubin 0.20 mg/dL (0.1-1.2) 09/21/18 22:56 AST 17 units/L (5-40) 09/21/18 22:56 ALT 9 units/L (7-56) 09/21/18 22:56 Alkaline Phosphatase 86 units/L (35-129) 09/21/18 22:56 Ammonia 57.0 umol/L (25-60) 09/21/18 22:56 Total Creatine Kinase 81 units/L (30-135) 09/22/18 10:26 CK-MB (CK-2) 3.1 ng/mL (0.0-4.0) 09/22/18 10:26 CK-MB (CK-2) Rel Index 3.8 (0-4) 09/22/18 10:26 Troponin T 0.074 ng/mL (0.00-0.029) H D 09/22/18 10:26 Serum Total Protein 5.2 g/dL (6.1-8.1) L 09/23/18 05:32 Total Protein 6.5 g/dL (6.3-8.2) 09/21/18 22:56 Albumin 2.5 g/dL (3.8-4.8) L 09/23/18 05:32 Albumin/Globulin Ratio 1.2 % 09/21/18 22:56 Mrngs-3-Thbzyucmn 0.4 g/dL (0.2-0.3) H 09/23/18 05:32 Wbhyw-7-Libysnbcw 0.8 g/dL (0.5-0.9) 09/23/18 05:32 Beta Globulins 0.4 g/dL (0.2-0.5) 09/23/18 05:32 Gamma Globulins 0.9 g/dL (0.8-1.7) 09/23/18 05:32 Abnorm Protein Band 1 see below 09/23/18 05:32 PEP Interpretation see below H 09/23/18 05:32 Triglycerides 208 mg/dL (2-149) H 09/21/18 23:57 Cholesterol 206 mg/dL (50-199) H 09/21/18 23:57 LDL Cholesterol Direct 143 mg/dL (50-130) H 09/21/18 23:57 HDL Cholesterol 40 mg/dL (40-59) 09/21/18 23:57 Cholesterol/HDL Ratio 5.15 % 09/21/18 23:57 Vitamin B12 839.9 pg/mL (211-911) 09/29/18 10:48 PTH Intact 417.9 pg/mL (15-65) H 09/29/18 10:48 Urine Color Yellow (Yellow) 09/23/18 16:00 Urine Turbidity Clear (Clear) 09/23/18 16:00 Urine pH 7.0 (5.0-7.0) 09/23/18 16:00 Ur Specific [place] 1.009 (1.003-1.030) 09/23/18 16:00 Urine Protein >500 mg/dL (Negative) 09/23/18 16:00 Urine Glucose (UA) 50 mg/dL (Negative) 09/23/18 16:00 Urine Ketones Neg mg/dL (Negative) 09/23/18 16:00 Urine Blood Neg (Negative) 09/23/18 16:00 Urine Nitrite Neg (Negative) 09/23/18 16:00 Urine Bilirubin Neg (Negative) 09/23/18 16:00 Urine Urobilinogen < 2.0 mg/dL (<2.0) 09/23/18 16:00 Ur Leukocyte Esterase Sm (Negative) 09/23/18 16:00 Urine WBC (Auto) 13.0 /HPF (0.0-6.0) H 09/23/18 16:00 Urine RBC (Auto) 1.0 /HPF (0.0-6.0) 09/23/18 16:00 U Epithel Cells (Auto) < 1.0 /HPF (0-13.0) 09/23/18 16:00 Urine Bacteria (Auto) 1+ /HPF (Negative) 09/23/18 16:00 Hyaline Casts 3 /LPF 09/23/18 16:00 Urine Mucus Few /HPF 09/23/18 16:00 Urine Eosinophils None seen (None Seen) 09/22/18 16:00 Urine Creatinine 80.7 mg/dL (0.1-20.0) H 09/23/18 16:00 Urine Sodium 66 mmol/L 09/23/18 16:00 Fraction Sodium Excret 3.6 09/23/18 16:00 Salicylates < 0.3 mg/dL (2.8-20.0) L 09/21/18 22:56 Acetaminophen < 5.0 ug/mL (10.0-30.0) L 09/21/18 22:56 Plasma/Serum Alcohol < 0.01 % (0-0.07) 09/21/18 22:56 AGATA Screen Negative (Negative) 09/22/18 18:06 Proteinase 3 (PR3) Ab <1.0 AI (<1.0) 09/22/18 18:06 Myeloperoxidase Ab <1.0 AI (<1.0) 09/22/18 18:06 Double Strand DNA Ab 1 IU/mL (<=4) 09/22/18 18:06 Complement C3 113 mg/dL (83-193) 09/22/18 18:06 Complement C4 57 mg/dL (15-57) 09/22/18 18:06 Hepatitis A IgM Ab Non-reactive (NonReactive) 09/22/18 18:06 Hep Bs Antigen Non-reactive (Negative) 09/22/18 18:06 Hep B Core IgM Ab Non-reactive (NonReactive) 09/22/18 18:06 Hepatitis C Antibody Non-reactive (NonReactive) 09/22/18 18:06 Nutrition/Malnutrition Assess - Dietary Evaluation Nutrition/Malnutrition Findings: Nutrition Notes Start: 09/23/18 13:24 Freq: Status: Active Protocol: Document 09/29/18 14:27 NHALL (Rec: 09/29/18 14:32 ENEIDA [email or web address]) Nutrition Notes Initial or Follow up Reassessment Current Diagnosis CKD (stage V CKD) Diabetes Hypertension Respiratory Failure Other Pertinent Diagnosis Pneu Current Diet TF - Nepro at 35ml/hr Labs/Tests Reviewed Pertinent Medications Lantus Height 5 ft 3 in Weight 75 kg [place] Body Weight (kg) 52.27 BMI 29.2 Subjective/Other Information Pt remains on vent support. She is tolerating TF at goal rate. Percent of energy/protein needs met: 100% energy 76% pro Burn Absent Trauma Absent #1 Nutrition Diagnosis Inadequate oral intake Diagnosis Progress(for reassessment Continues documentation) Is patient on ventilator? Yes Is Patient Ambulatory and/or Out of Bed No REE-([place]-confined to bed) 1510.171 Calculation Used for Recommendations [place] Additional Notes Pro needs 1.2-2g/k-150g/ day Fluid needs 1-1.5L/day Nutrition Intervention Nutrition Support: Continue Nepro at 35ml/hr Water flush of 150 ml q4h or per MD order Kcal 1,512 Protein (gm) 68 Fluid (mL) 610 Goal #1 TF tolerance Goal #2 TF to meet at least 80% energy and pro needs Follow-Up By: 10/07/18 Additional Comments F/U: stable TF, wt, vent status
[2018-09-30] MEDS: APRESOLINE IV PRN (18:35)
[2018-09-30] MEDS: LANTUS SUB-Q SCH (21:53)
--- NOTE | 2018-09-30 23:00 | XRay Report ---
FINAL REPORT PROCEDURE: XR CHEST 1V AP TECHNIQUE: Chest radiograph anteroposterior view. CPT 76790 HISTORY: possible aspiration COMPARISON: 09/26/2018 FINDINGS: Bilateral lungs and pleural spaces are clear. Cardiomediastinal silhouette is within normal limits. A nasogastric tube is extending down into the abdomen and its tip is not included in the study. A righ t jugular central line is terminating at the level of distal superior vena cava IMPRESSION: No acute pulmonary process.
[2018-10-01] MEDS: HumaLOG SUB-Q SCH ×4 (01:00→18:35)
[2018-10-01] MEDS: HALDOL IV SCH ×2 (04:21→09:42)
[2018-10-01 06:30] LABS: Hematocrit 21.9 % (30.3-42.9); Hemoglobin 7.1 gm/dl (10.1-14.3); Mean Corpuscular HGB Conc 32 % (30-34); Mean Corpuscular Volume 86 fl (79-97); Platelet Count 228 K/mm3 (140-440); Red Blood Count 2.55 M/mm3 (3.65-5.03); Red Cell Distribution Width 14.8 % (13.2-15.2)
[2018-10-01 06:39] LABS: Calcium 8.7 mg/dL (8.4-10.2)
[2018-10-01] MEDS: APRESOLINE PO SCH ×3 (08:35→20:05)
--- NOTE | 2018-10-01 09:05 | Progress Note ---
Subjective Principal diagnosis: acute respiratory failure, end-stage renal disease, AMS Interval history: Patient was seen today for follow-up on multiple renal related issues She is being dialyzed 3 times a week Blood pressure is better Patient remains severely anemic Events of 24 hours noted Interdisciplinary Notes were also reviewed past medical history:: Reviewed Allergies: Reviewed Family history: Reviewed Physical examination HEENT: Oral mucosa moist Neck: Supple no JVD Chest: Clear to auscultation anteriorly Posteriorly has crackles in bases CVS: Regular rate and rhythm S1 and S2 heard Abdomen: Soft nontender no suprapubic masses no organomegaly appreciable Extremity: Dry skin less than 1+ peripheral edema Musculoskeletal: No joint effusion noted in knees and ankle Dermatology: No petechial rashes Psychiatry: No evidence of any agitation and aggression noted Assessment and plan End-stage renal disease currently on maintenance hemodialysis on Saturday, patient does require a permacath placement Will consult vascular surgery for that once she is more stable, Hyperkalemia currently doing much better Renal ultrasonogram shows evidence of renal mass, Will do CT with contrast when ,more stable suspicion about kidney cancer she will also need to be seen by urology at some point when she is doing better Accelerated hypertension currently much better controlled now with present regim en of medication Severe anemia currently hemoglobin 7.1/patient will require packed red blood cell transfusion Iron saturation is very low 10% Secondary hyperparathyroidism: PTH satisfactory for 17 phosphorus level is 5.3 okay Prognosis still remains very poor due to her age, multiple comorbidities, renal failure, dialysis dependent Family has been educated about this already We'll continue to follow and make recommendation from renal standpoint Objective - Vital Signs Vital signs: Vital Signs - 12hr 09/30/18 09/30/18 09/30/18 21:30 22:00 22:30 Temperature Pulse Rate 133 H 136 H 148 H Pulse Rate [ Anterior Bilateral Throughout] Respiratory 31 H 31 H Rate Respiratory Rate [Anterior Bilateral Throughout] Blood Pressure 173/65 182/64 178/73 O2 Sat by Pulse 96 100 100 Oximetry 09/30/18 09/30/18 09/30/18 23:00 23:05 23:22 Temperature Pulse Rate 133 H 119 H 139 H Pulse Rate [ Anterior Bilateral Throughout] Respiratory 34 H 32 H 37 H Rate Respiratory Rate [Anterior Bilateral Throughout] Blood Pressure 154/57 154/57 154/57 O2 Sat by Pulse 100 99 100 Oximetry 09/30/18 09/30/18 10/01/18 23:30 23:45 00:00 Temperature 99.2 F Pulse Rate 127 H 123 H Pulse Rate [ Anterior Bilateral Throughout] Respiratory 28 H 20 Rate Respiratory Rate [Anterior Bilateral Throughout] Blood Pressure 179/68 179/68 O2 Sat by Pulse 98 100 Oximetry 10/01/18 10/01/18 10/01/18 00:15 00:29 00:30 Temperature Pulse Rate 126 H Pulse Rate [ 103 H 126 H Anterior Bilateral Throughout] Respiratory 24 Rate Respiratory 30 H 14 Rate [Anterior Bilateral Throughout] Blood Pressure 179/68 O2 Sat by Pulse 99 Oximetry 10/01/18 10/01/18 10/01/18 01:00 01:30 02:00 Temperature Pulse Rate 138 H 107 H 112 H Pulse Rate [ Anterior Bilateral Throughout] Respiratory 29 H 20 24 Rate Respiratory Rate [Anterior Bilateral Throughout] Blood Pressure 146/74 151/62 156/63 O2 Sat by Pulse 97 98 99 Oximetry 10/01/18 10/01/18 10/01/18 02:30 03:00 03:30 Temperature Pulse Rate 103 H 116 H 97 H Pulse Rate [ Anterior Bilateral Throughout] Respiratory 23 22 21 Rate Respiratory Rate [Anterior Bilateral Throughout] Blood Pressure 152/59 157/67 169/61 O2 Sat by Pulse 99 98 96 Oximetry 10/01/18 10/01/18 10/01/18 03:47 04:00 04:30 Temperature 99.8 F H Pulse Rate 107 H 116 H Pulse Rate [ Anterior Bilateral Throughout] Respiratory 24 17 Rate Respiratory Rate [Anterior Bilateral Throughout] Blood Pressure 159/60 159/60 O2 Sat by Pulse 96 100 Oximetry 10/01/18 10/01/18 10/01/18 04:44 05:00 05:30 Temperature Pulse Rate 94 H 114 H 122 H Pulse Rate [ Anterior Bilateral Throughout] Respiratory 18 18 20 Rate Respiratory Rate [Anterior Bilateral Throughout] Blood Pressure 131/64 133/63 154/60 O2 Sat by Pulse 100 99 98 Oximetry 10/01/18 06:00 Temperature Pulse Rate 121 H Pulse Rate [ Anterior Bilateral Throughout] Respiratory 24 Rate Respiratory Rate [Anterior Bilateral Throughout] Blood Pressure 159/57 O2 Sat by Pulse 99 Oximetry - Lab 10/01/18 05:48 10/01/18 05:48 Most recent lab results Calcium 8.7 mg/dL (8.4-10.2) 10/01/18 05:48 Phosphorus 5.30 mg/dL (2.5-4.5) H 09/29/18 10:48 Urine Creatinine 80.7 mg/dL (0.1-20.0) H 09/23/18 16:00 Urine Sodium 66 mmol/L 09/23/18 16:00 Medications & Allergies - Medications Allergies/Adverse Reactions: Allergies codeine Adverse Reaction (Verified 09/23/18 10:09) Unknown Home Medications: Home Medications Medication Instructions Recorded Confirmed Last Taken Type ALBUTEROL NEB's [Proventil 0.083% 2.5 mg INHALATION Q6H PRN 09/25/18 09/25/18 Unknown History NEBS] Carvedilol 25 mg PO Q12H 09/25/18 09/25/18 Unknown History Clonidine 0.2 mg PO BID 09/25/18 09/25/18 Unknown History Doxazosin 2 mg PO DAILY 09/25/18 09/25/18 Unknown History Dss 100 mg PO BID 09/25/18 09/25/18 Unknown History Fluticasone [Flonase] 1 spray INNOSTRIL DAILY 09/25/18 09/25/18 Unknown History Insulin NPH/Regular [Novolin 70/30] 20 unit SQ DAILY 09/25/18 09/25/18 Unknown History Isosorbide Mononitrate 30 mg PO DAILY 09/25/18 09/25/18 Unknown History NIFEdipine [Nifedipine ER] 60 mg PO BID 09/25/18 09/25/18 Unknown History Sevelamer Carbonate 1 tab PO TID 09/25/18 09/25/18 Unknown History Simvastatin [Zocor] 1 tab PO DAILY 09/25/18 09/25/18 Unknown History Torsemide [Demadex] 0.5 tab PO DAILY 09/25/18 09/25/18 Unknown History hydrALAZINE 100 mg PO Q8H 09/25/18 09/25/18 Unknown History Active Medications: Generic Name Dose Route Start Last Admin Trade Name Freq PRN Reason Stop Dose Admin Acetaminophen 650 mg 09/22/18 04:14 09/26/18 03:56 Tylenol PO 650 mg Q4H PRN Administration Pain MILD(1-3)/Fever >100.5/MEJIA Lipase/Protease/Amylase 1 each 09/23/18 13:57 Pancreazdasha Bourgeois 10,500 Unit FEEDTUBE PRN PRN For Clogged Feeding Tube Clonidine HCl 0.2 mg 09/28/18 10:00 09/28/18 12:02 Catapres-Tts Patch TD 0.2 mg Mae KAILA Administration Dextrose 50 ml 09/22/18 04:14 D50w (25gm) Syringe IV PRN PRN Hypoglycemia Enoxaparin Sodium 30 mg 09/22/18 10:00 09/30/18 10:19 Lovenox SUB-Q 30 mg QDAY KAILA Administration Epinephrine 0.5 ml 09/25/18 12:52 10/01/18 00:13 S2 Racepinephrine 2.25% IH 0.5 ml Q4HRT PRN Administration stridor Famotidine 20 mg 09/29/18 10:00 09/30/18 10:19 Pepcid PO 20 mg DAILY KAILA Administration Fentanyl 50 mcg 09/28/18 09:23 09/28/18 18:09 Sublimaze IV 50 mcg Q2H PRN Administration MOUTH PAIN Haloperidol Lactate 5 mg 09/28/18 10:00 10/01/18 04:21 Haldol IV 5 mg Q6H KAILA Administration Hydralazine HCl 10 mg 09/22/18 19:30 09/30/18 18:35 Apresoline IV 10 mg Q4HR PRN Administration SBP>160 Hydralazine HCl 50 mg 09/29/18 14:00 10/01/18 08:35 Apresoline PO 50 mg TID KAILA Administration Sodium Chloride 100 mls @ 999 mls/hr 09/29/18 09:26 Nacl 0.9% IV CAROLINE PRN Hypotension Insulin Glargine 5 units 09/28/18 22:00 09/30/18 21:53 Lantus SUB-Q 5 units QHS KAILA Administration Insulin Human Lispro 0 unit 09/22/18 06:00 10/01/18 05:33 Humalog SUB-Q Not Given Q6HR [facility] Protocol Lorazepam 1 mg 09/23/18 10:06 09/29/18 20:32 Ativan IV 1 mg Q4H PRN Administration Agitation Ondansetron HCl 4 mg 09/30/18 22:58 Zofran IV Q8H PRN Nausea And Vomiting Senna/Docusate Sodium 2 tab 09/30/18 12:00 09/30/18 21:53 Senokot S PO 2 tab BID KAILA Administration Simple Syrup 15 ml 09/23/18 13:57 Simple Syrup FEEDTUBE PRN PRN Hypoglycemia Simple Syrup 30 ml 09/23/18 13:57 Simple Syrup FEEDTUBE PRN PRN Hypoglycemia Sodium Bicarbonate 325 mg 09/23/18 13:57 Sodium Bicarbonate FEEDTUBE PRN PRN For Clogged Feeding Tube Sodium Chloride 10 ml 09/22/18 10:00 09/30/18 21:54 Sodium Chloride Flush Syringe 10 Ml IV 10 ml BID KAILA Administration Sodium Chloride 10 ml 09/22/18 04:14 Sodium Chloride Flush Syringe 10 Ml IV PRN PRN LINE FLUSH
[2018-10-01] MEDS: SENOKOT S PO SCH ×2 (09:41→21:20)
[2018-10-01] MEDS: LOVENOX SUB-Q SCH (09:42)
[2018-10-01] MEDS: SODIUM CHLORIDE FLUSH SYRINGE 10 ML IV SCH ×2 (09:42→22:00)
[2018-10-01] MEDS: PEPCID PO SCH (09:42)
--- NOTE | 2018-10-01 10:34 | Progress Note ---
Assessment and Plan Assessment and plan: 68 year old woman history of CHF, hypertension, diabetes, chronic kidney disease was brought to the emergency room for shortness of breath. The history is per the son Roshan, he stated he was not at the scene, the patient was at [facility] when her symptoms started. Patient was intubated in the emergency room, she is sedated, review of system is unobtainable. Nurse reported that the patient had copious amount of vomiting in the ER (1) Acute respiratory failure Current Visit: Yes Status: Acute Plan to address problem: Acute respiratory failure seems to be a little more alert today. Currently weaning patient off of fentanyl and propofol and attempts to extubate soon. Agree with possibility of anoxia again hopefully not severe enough to affect quality of life too much. EEG should be helpful. Also will benefit from further evaluation after extubation. Patient extubated 09/30/18. Experienced some tachycardia and tachypenia post extubation but settled down some on BIPAP. continue to monitor BIPAP PRN (2)NSTEMI TYPE 2 Elevated troponin Current Visit: Yes Status: Acute Plan to address problem: Elevated troponin non-STEMI2. Aspirin beta lou continue current anticoagulation cardiology following. (3) Sepsis secondary Pneumonia Current Visit: Yes Status: Acute Qualifiers: Pneumonia type: due to unspecified organism Laterality: unspecified laterality Lung location: unspecified part of lung Qualified Code(s): J18.9 - Pneumonia, unspecified organism Plan to address problem: Patient with possible aspiration pneumonia currently not receiving any antibiotics at this time.. Recent culture data unremarkable. Has remained afebrile and no leukocytosis. We'll observe closely because of high risk of aspiration. Left lower lobe atelectasis seems to be secondary to volume. (4) Respiratory failure Current Visit: Yes Status: Acute Qualifiers: Chronicity: acute Respiratory failure complication: hypoxia Qualified Code(s): J96.01 - Acute respiratory failure with hypoxia Plan to address problem: Again pending weaning and extubation. (5) CKD (chronic kidney disease) Current Visit: Yes Status: Chronic Qualifiers: Chronic kidney disease stage: unspecified stage Qualified Code(s): N18.9 - Chronic kidney disease, unspecified Plan to address problem: Chronic kidney disease continue hemodialysis tolerated Saturday. Status post right IJ Vas-Cath placement on 09/23/2018. -started on HD Discuss possible placement of permacath. will discuss with Pulmonary (6) Diabetes Current Visit: Yes Status: Chronic Plan to address problem: At present has fair control diabetes with sliding scale. We'll consider adding long-acting insulin may be 5 mg of Lantus daily at bedtime and titrate accordingly. (7) Hypertension Current Visit: Yes Status: Chronic Qualifiers: Hypertension type: essential hypertension Qualified Code(s): I10 - Essential (primary) hypertension Plan to address problem: Blood pressure much better controlled today. (8) Metabolic Encephalopathy Unsure etiology. Patient noted to be significantly hypoxic on EMS arrival, Appears to be improving. (9)Anemia- likely of ESRD Give a unit of PRBC (10) Renal Mass Urology consult to evaluate for possible Renal cancer when patient is stable The high probability of a clinically significant, sudden or life threatening deterioration of the [pulmonary, cardiac, renal] system(s) required my full and direct attention, intervention and personal management. The aggregate critical care time was [35]minutes. This time is in addition to time spent performing reported procedures but includes the following: [x] Data Review and interpretation [x] Patient assessment and monitoring of vital signs [x] Documentation [x] Medication orders and management History Interval history: Patient is examined this morning extubated more awake, BIPAP PRN Hospitalist Physical - Physical exam Narrative exam: VITAL SIGNS: Reviewed. GENERAL: Remains ON Mechanical ventilatory support this am HEAD: No signs of head trauma. EYES: Pupils are equal. EARS: Hearing grossly intact. MOUTH: Oropharnygal normal NECK: No adenopathy, no JVD. CHEST: Chest with clear breath sounds bilaterally. No wheezes, rales, or rhonchi. CARDIAC: Regular rate and rhythm. S1 and S2, without murmurs, gallops, or rubs. VASCULAR: No Edema. Peripheral pulses normal and equal in all extremities. ABDOMEN: Soft, without detectable tenderness. No sign of distention. No rebound or guarding, and no masses palpated. Bowel Sounds normal. MUSCULOSKELETAL: Good range of motion of all major joints. Extremities without clubbing, cyanosis or edema. NEUROLOGIC EXAM: Awake and orientationx2. No focal sensory or strength deficits. PSYCHIATRIC: Unable to assess SKIN: No rash or lesions. - Constitutional Vitals: Temp Pulse Resp BP Pulse Ox 99.8 F H 118 H 28 H 174/81 100 10/01/18 03:47 02/13/19 09:30 10/01/18 09:30 10/01/18 09:30 10/01/18 10:17 General appearance: Present: no acute distress, mild distress, other (intubated, sedated) Results - Labs CBC & Chem 7: 10/01/18 05:48 10/01/18 05:48 Labs: Laboratory Last Values WBC 16.4 K/mm3 (4.5-11.0) H 10/01/18 05:48 RBC 2.55 M/mm3 (3.65-5.03) L 10/01/18 05:48 Hgb 7.1 gm/dl (10.1-14.3) L 10/01/18 05:48 Hct 21.9 % (30.3-42.9) L 10/01/18 05:48 MCV 86 fl (79-97) 10/01/18 05:48 MCH 28 pg (28-32) 10/01/18 05:48 MCHC 32 % (30-34) 10/01/18 05:48 RDW 14.8 % (13.2-15.2) 10/01/18 05:48 Plt Count 228 K/mm3 (140-440) 10/01/18 05:48 Lymph % (Auto) 16.7 % (13.4-35.0) 09/23/18 04:24 [place] % (Auto) 12.6 % (0.0-7.3) H 09/23/18 04:24 Eos % (Auto) 3.5 % (0.0-4.3) 09/23/18 04:24 Baso % (Auto) 1.5 % (0.0-1.8) 09/23/18 04:24 Lymph # 1.4 K/mm3 (1.2-5.4) 09/23/18 04:24 [place] # 1.1 K/mm3 (0.0-0.8) H 09/23/18 04:24 Eos # 0.3 K/mm3 (0.0-0.4) 09/23/18 04:24 Baso # 0.1 K/mm3 (0.0-0.1) 09/23/18 04:24 Add Manual Diff Complete 09/29/18 10:48 Total Counted 100 09/29/18 10:48 Seg Neutrophils % 65.7 % (40.0-70.0) 09/23/18 04:24 Seg Neuts % (Manual) 90.0 % (40.0-70.0) H 09/29/18 10:48 Band Neutrophils % 0 % 09/29/18 10:48 Lymphocytes % (Manual) 6.0 % (13.4-35.0) L 09/29/18 10:48 Reactive Lymphs % (Man) 0 % 09/29/18 10:48 Monocytes % (Manual) 0 % (0.0-7.3) 09/29/18 10:48 Eosinophils % (Manual) 1.0 % (0.0-4.3) 09/29/18 10:48 Basophils % (Manual) 1.0 % (0.0-1.8) 09/29/18 10:48 Metamyelocytes % 2.0 % 09/29/18 10:48 Myelocytes % 0 % 09/29/18 10:48 Promyelocytes % 0 % 09/29/18 10:48 Blast Cells % 0 % 09/29/18 10:48 Nucleated RBC % Not Reportable 09/29/18 10:48 Seg Neutrophils # 5.5 K/mm3 (1.8-7.7) 09/23/18 04:24 Seg Neutrophils # Man 13.1 K/mm3 (1.8-7.7) H 09/29/18 10:48 Band Neutrophils # 0.0 K/mm3 09/29/18 10:48 Lymphocytes # (Manual) 0.9 K/mm3 (1.2-5.4) L 09/29/18 10:48 Abs React Lymphs (Man) 0.0 K/mm3 09/29/18 10:48 Monocytes # (Manual) 0.0 K/mm3 (0.0-0.8) 09/29/18 10:48 Eosinophils # (Manual) 0.1 K/mm3 (0.0-0.4) 09/29/18 10:48 Basophils # (Manual) 0.1 K/mm3 (0.0-0.1) 09/29/18 10:48 Metamyelocytes # 0.3 K/mm3 09/29/18 10:48 Myelocytes # 0.0 K/mm3 09/29/18 10:48 Promyelocytes # 0.0 K/mm3 09/29/18 10:48 Blast Cells # 0.0 K/mm3 09/29/18 10:48 WBC Morphology Not Reportable 09/29/18 10:48 Hypersegmented Neuts Not Reportable 09/29/18 10:48 Hyposegmented Neuts Not Reportable 09/29/18 10:48 Hypogranular Neuts Not Reportable 09/29/18 10:48 Smudge Cells Not Reportable 09/29/18 10:48 Toxic Granulation Not Reportable 09/29/18 10:48 Toxic Vacuolation Not Reportable 09/29/18 10:48 Dohle Bodies Not Reportable 09/29/18 10:48 Pelger-Huet Anomaly Not Reportable 09/29/18 10:48 Kevin Rods Not Reportable 09/29/18 10:48 Platelet Estimate Consistent w auto 09/29/18 10:48 Clumped Platelets Not Reportable 09/29/18 10:48 Plt Clumps, EDTA Not Reportable 09/29/18 10:48 Large Platelets Not Reportable 09/29/18 10:48 Giant Platelets Not Reportable 09/29/18 10:48 Platelet Satelliting Not Reportable 09/29/18 10:48 Plt Morphology Comment Not Reportable 09/29/18 10:48 RBC Morphology Not Reportable 09/29/18 10:48 Dimorphic RBCs Not Reportable 09/29/18 10:48 Polychromasia Not Reportable 09/29/18 10:48 Hypochromasia Not Reportable 09/29/18 10:48 Poikilocytosis Not Reportable 09/29/18 10:48 Anisocytosis 1+ 09/29/18 10:48 Microcytosis Not Reportable 09/29/18 10:48 Macrocytosis Not Reportable 09/29/18 10:48 Spherocytes Not Reportable 09/29/18 10:48 Pappenheimer Bodies Not Reportable 09/29/18 10:48 Sickle Cells Not Reportable 09/29/18 10:48 Target Cells Not Reportable 09/29/18 10:48 Tear Drop Cells Not Reportable 09/29/18 10:48 Ovalocytes Not Reportable 09/29/18 10:48 Helmet Cells Not Reportable 09/29/18 10:48 Smith-Box Bodies Not Reportable 09/29/18 10:48 [place] Rings Not Reportable 09/29/18 10:48 [place] Cells Not Reportable 09/29/18 10:48 Bite Cells Not Reportable 09/29/18 10:48 Crenated Cell Not Reportable 09/29/18 10:48 Elliptocytes Not Reportable 09/29/18 10:48 Acanthocytes (Spur) Not Reportable 09/29/18 10:48 Rouleaux Not Reportable 09/29/18 10:48 Hemoglobin C Crystals Not Reportable 09/29/18 10:48 Schistocytes Not Reportable 09/29/18 10:48 Malaria parasites Not Reportable 09/29/18 10:48 Sal Bodies Not Reportable 09/29/18 10:48 Hem Pathologist Commnt No 09/29/18 10:48 D-Dimer 4401.15 ng/mlDDU (0-234) H 09/21/18 22:56 POC ABG pH 7.462 (7.35-7.45) H 10/01/18 09:21 POC ABG pCO2 42.5 (35-45) 10/01/18 09:21 POC ABG pO2 108 (80-105) H 10/01/18 09:21 POC ABG HCO3 30.4 10/01/18 09:21 POC ABG Total CO2 32 10/01/18 09:21 POC ABG O2 Sat 98 10/01/18 09:21 POC ABG Base Excess 7 10/01/18 09:21 FiO2 30 % 10/01/18 09:21 Sodium 137 mmol/L (137-145) 10/01/18 05:48 Potassium 4.1 mmol/L (3.6-5.0) 10/01/18 05:48 Chloride 95.6 mmol/L (98-107) L 10/01/18 05:48 Carbon Dioxide 24 mmol/L (22-30) 10/01/18 05:48 Anion Gap 22 mmol/L 10/01/18 05:48 BUN 53 mg/dL (7-17) H 10/01/18 05:48 Creatinine 6.5 mg/dL (0.7-1.2) H 10/01/18 05:48 Estimated GFR 8 ml/min 10/01/18 05:48 BUN/Creatinine Ratio 8 % 10/01/18 05:48 Glucose 85 mg/dL (65-100) 10/01/18 05:48 POC Glucose 72 (70-105) 10/01/18 05:34 Lactic Acid 1.70 mmol/L (0.7-2.0) 09/22/18 04:50 Calcium 8.7 mg/dL (8.4-10.2) 10/01/18 05:48 Phosphorus 5.30 mg/dL (2.5-4.5) H 09/29/18 10:48 Iron 15 ug/dL (37-170) L 09/29/18 10:48 TIBC 146 mcg/dL (250-450) L 09/29/18 10:48 % Saturation 10.27 % 09/29/18 10:48 Transferrin 109 mg/dl (192-382) L 09/29/18 10:48 Total Bilirubin 0.20 mg/dL (0.1-1.2) 09/21/18 22:56 AST 17 units/L (5-40) 09/21/18 22:56 ALT 9 units/L (7-56) 09/21/18 22:56 Alkaline Phosphatase 86 units/L (35-129) 09/21/18 22:56 Ammonia 57.0 umol/L (25-60) 09/21/18 22:56 Total Creatine Kinase 81 units/L (30-135) 09/22/18 10:26 CK-MB (CK-2) 3.1 ng/mL (0.0-4.0) 09/22/18 10:26 CK-MB (CK-2) Rel Index 3.8 (0-4) 09/22/18 10:26 Troponin T 0.074 ng/mL (0.00-0.029) H D 09/22/18 10:26 Serum Total Protein 5.2 g/dL (6.1-8.1) L 09/23/18 05:32 Total Protein 6.5 g/dL (6.3-8.2) 09/21/18 22:56 Albumin 2.5 g/dL (3.8-4.8) L 09/23/18 05:32 Albumin/Globulin Ratio 1.2 % 09/21/18 22:56 Ycgoe-0-Tzhvsmuzv 0.4 g/dL (0.2-0.3) H 09/23/18 05:32 Cvjwf-0-Pqngequtv 0.8 g/dL (0.5-0.9) 09/23/18 05:32 Beta Globulins 0.4 g/dL (0.2-0.5) 09/23/18 05:32 Gamma Globulins 0.9 g/dL (0.8-1.7) 09/23/18 05:32 Abnorm Protein Band 1 see below 09/23/18 05:32 PEP Interpretation see below H 09/23/18 05:32 Triglycerides 208 mg/dL (2-149) H 09/21/18 23:57 Cholesterol 206 mg/dL (50-199) H 09/21/18 23:57 LDL Cholesterol Direct 143 mg/dL (50-130) H 09/21/18 23:57 HDL Cholesterol 40 mg/dL (40-59) 09/21/18 23:57 Cholesterol/HDL Ratio 5.15 % 09/21/18 23:57 Vitamin B12 839.9 pg/mL (211-911) 09/29/18 10:48 PTH Intact 417.9 pg/mL (15-65) H 09/29/18 10:48 Urine Color Yellow (Yellow) 09/23/18 16:00 Urine Turbidity Clear (Clear) 09/23/18 16:00 Urine pH 7.0 (5.0-7.0) 09/23/18 16:00 Ur Specific [place] 1.009 (1.003-1.030) 09/23/18 16:00 Urine Protein >500 mg/dL (Negative) 09/23/18 16:00 Urine Glucose (UA) 50 mg/dL (Negative) 09/23/18 16:00 Urine Ketones Neg mg/dL (Negative) 09/23/18 16:00 Urine Blood Neg (Negative) 09/23/18 16:00 Urine Nitrite Neg (Negative) 09/23/18 16:00 Urine Bilirubin Neg (Negative) 09/23/18 16:00 Urine Urobilinogen < 2.0 mg/dL (<2.0) 09/23/18 16:00 Ur Leukocyte Esterase Sm (Negative) 09/23/18 16:00 Urine WBC (Auto) 13.0 /HPF (0.0-6.0) H 09/23/18 16:00 Urine RBC (Auto) 1.0 /HPF (0.0-6.0) 09/23/18 16:00 U Epithel Cells (Auto) < 1.0 /HPF (0-13.0) 09/23/18 16:00 Urine Bacteria (Auto) 1+ /HPF (Negative) 09/23/18 16:00 Hyaline Casts 3 /LPF 09/23/18 16:00 Urine Mucus Few /HPF 09/23/18 16:00 Urine Eosinophils None seen (None Seen) 09/22/18 16:00 Urine Creatinine 80.7 mg/dL (0.1-20.0) H 09/23/18 16:00 Urine Sodium 66 mmol/L 09/23/18 16:00 Fraction Sodium Excret 3.6 09/23/18 16:00 Salicylates < 0.3 mg/dL (2.8-20.0) L 09/21/18 22:56 Acetaminophen < 5.0 ug/mL (10.0-30.0) L 09/21/18 22:56 Plasma/Serum Alcohol < 0.01 % (0-0.07) 09/21/18 22:56 AGATA Screen Negative (Negative) 09/22/18 18:06 Proteinase 3 (PR3) Ab <1.0 AI (<1.0) 09/22/18 18:06 Myeloperoxidase Ab <1.0 AI (<1.0) 09/22/18 18:06 Double Strand DNA Ab 1 IU/mL (<=4) 09/22/18 18:06 Complement C3 113 mg/dL (83-193) 09/22/18 18:06 Complement C4 57 mg/dL (15-57) 09/22/18 18:06 Hepatitis A IgM Ab Non-reactive (NonReactive) 09/22/18 18:06 Hep Bs Antigen Non-reactive (Negative) 09/22/18 18:06 Hep B Core IgM Ab Non-reactive (NonReactive) 09/22/18 18:06 Hepatitis C Antibody Non-reactive (NonReactive) 09/22/18 18:06 Nutrition/Malnutrition Assess - Dietary Evaluation Nutrition/Malnutrition Findings: Nutrition Notes Start: 09/23/18 13:24 Freq: Status: Active Protocol: Document 09/29/18 14:27 ENEIDA (Rec: 09/29/18 14:32 ENEIDA [facility]- FNSERVICES1) Nutrition Notes Initial or Follow up Reassessment Current Diagnosis CKD (stage V CKD) Diabetes Hypertension Respiratory Failure Other Pertinent Diagnosis Pneu Current Diet TF - Nepro at 35ml/hr Labs/Tests Reviewed Pertinent Medications Norberttus Height 5 ft 3 in Weight 75 kg [place] Body Weight (kg) 52.27 BMI 29.2 Subjective/Other Information Pt remains on vent support. She is tolerating TF at goal rate. Percent of energy/protein needs met: 100% energy 76% pro Burn Absent Trauma Absent #1 Nutrition Diagnosis Inadequate oral intake Diagnosis Progress(for reassessment Continues documentation) Is patient on ventilator? Yes Is Patient Ambulatory and/or Out of Bed No REE-([facility]-confined to bed) 1511.932 Calculation Used for Recommendations [facility] Additional Notes Pro needs 1.2-2g/k-150g/ day Fluid needs 1-1.5L/day Nutrition Intervention Nutrition Support: Continue Nepro at 35ml/hr Water flush of 150 ml q4h or per MD order Kcal 1,512 Protein (gm) 68 Fluid (mL) 610 Goal #1 TF tolerance Goal #2 TF to meet at least 80% energy and pro needs Follow-Up By: 10/07/18 Additional Comments F/U: stable TF, wt, vent status
[2018-10-01] MEDS ORDERED: HALDOL IV PRN (11:00)
[2018-10-01] MEDS ORDERED: NACL 0.9% 500 ML 500 ML IV ONE (11:00)
--- NOTE | 2018-10-01 11:08 | XRay Report ---
AP CHEST: HISTORY: Aspiration AP view of the chest demonstrates a normal mediastinal and cardiac contour with clear lungs and normal bony and soft tissue structures. Lines and tubes remain in the same position. IMPRESSION: Unremarkable AP chest. No change since 09/30/18.
--- NOTE | 2018-10-01 11:30 | Progress Note ---
Assessment and Plan 68 y/o female with acute respiratory failure and ESRD and now newly found renal mass on ultrasound 1. Bipap PRN and QHS. Will attempt Venti mask therapy and wean from there 2. Change Haldol to PRN, continue PRN ativan, stop Fentanyl 3. IMS ordered PRBC's will be given with HD today. 4. Per renal, will obtain CT scan of abdomen pelvis 5. Bedside swallow vs speech consult 6. Continue ICU care CCT 31 minutes. Subjective Date of service: 10/01/18 Principal diagnosis: acute respiratory failure, end-stage renal disease, AMS Interval history: Extubated on yesterday. Required bipap as listed in my event note from yesterday. Awake this am. Family not present. ABG on bipap was good this am. Objective Vital Signs - 12hr 09/30/18 09/30/18 09/30/18 23:22 23:30 23:45 Temperature 99.2 F Pulse Rate 139 H 127 H Pulse Rate [ Anterior Bilateral Throughout] Respiratory 37 H 28 H Rate Respiratory Rate [Anterior Bilateral Throughout] Blood Pressure 154/57 179/68 O2 Sat by Pulse 100 98 Oximetry 10/01/18 10/01/18 10/01/18 00:00 00:15 00:29 Temperature Pulse Rate 123 H Pulse Rate [ 103 H 126 H Anterior Bilateral Throughout] Respiratory 20 Rate Respiratory 30 H 14 Rate [Anterior Bilateral Throughout] Blood Pressure 179/68 O2 Sat by Pulse 100 Oximetry 10/01/18 10/01/18 10/01/18 00:30 01:00 01:30 Temperature Pulse Rate 126 H 138 H 107 H Pulse Rate [ Anterior Bilateral Throughout] Respiratory 24 29 H 20 Rate Respiratory Rate [Anterior Bilateral Throughout] Blood Pressure 179/68 146/74 151/62 O2 Sat by Pulse 99 97 98 Oximetry 10/01/18 10/01/18 10/01/18 02:00 02:30 03:00 Temperature Pulse Rate 112 H 103 H 116 H Pulse Rate [ Anterior Bilateral Throughout] Respiratory 24 23 22 Rate Respiratory Rate [Anterior Bilateral Throughout] Blood Pressure 156/63 152/59 157/67 O2 Sat by Pulse 99 99 98 Oximetry 10/01/18 10/01/18 10/01/18 03:30 03:47 04:00 Temperature 99.8 F H Pulse Rate 97 H 107 H Pulse Rate [ Anterior Bilateral Throughout] Respiratory 21 24 Rate Respiratory Rate [Anterior Bilateral Throughout] Blood Pressure 169/61 159/60 O2 Sat by Pulse 96 96 Oximetry 10/01/18 10/01/18 10/01/18 04:30 04:44 05:00 Temperature Pulse Rate 116 H 94 H 114 H Pulse Rate [ Anterior Bilateral Throughout] Respiratory 17 18 18 Rate Respiratory Rate [Anterior Bilateral Throughout] Blood Pressure 159/60 131/64 133/63 O2 Sat by Pulse 100 100 99 Oximetry 10/01/18 10/01/18 10/01/18 05:30 06:00 06:30 Temperature Pulse Rate 122 H 121 H 122 H Pulse Rate [ Anterior Bilateral Throughout] Respiratory 20 24 28 H Rate Respiratory Rate [Anterior Bilateral Throughout] Blood Pressure 154/60 159/57 146/65 O2 Sat by Pulse 98 99 97 Oximetry 10/01/18 10/01/18 10/01/18 07:00 07:30 08:00 Temperature Pulse Rate 114 H 123 H 108 H Pulse Rate [ Anterior Bilateral Throughout] Respiratory 19 23 26 H Rate Respiratory Rate [Anterior Bilateral Throughout] Blood Pressure 172/58 176/73 189/63 O2 Sat by Pulse 99 100 99 Oximetry 10/01/18 10/01/18 10/01/18 08:30 09:00 09:02 Temperature Pulse Rate 89 121 H 89 Pulse Rate [ Anterior Bilateral Throughout] Respiratory 19 39 H 19 Rate Respiratory Rate [Anterior Bilateral Throughout] Blood Pressure 189/63 169/76 169/76 O2 Sat by Pulse 100 98 100 Oximetry 10/01/18 10/01/18 09:30 10:17 Temperature Pulse Rate 118 H Pulse Rate [ Anterior Bilateral Throughout] Respiratory 28 H Rate Respiratory Rate [Anterior Bilateral Throughout] Blood Pressure 174/81 O2 Sat by Pulse 99 100 Oximetry Constitutional: no acute distress, other (orally intubated but not following commands this am. More movement in bed.) Eyes: non-icteric ENT: oropharynx moist, other (orally intubated) Effort: normal Ascultation: Bilateral: clear, diminished breath sounds Cardiovascular: regular rate and rhythm Gastrointestinal: normoactive bowel sounds, non-distended Integumentary: normal Extremities: no cyanosis, no edema Neurologic: other (RASS -1) CBC and BMP: 10/01/18 05:48 10/01/18 05:48 ABG, PT/INR, D-dimer: ABG POC ABG pH 7.462 (7.35-7.45) H 10/01/18 09:21 POC ABG pCO2 42.5 (35-45) 10/01/18 09:21 POC ABG pO2 108 (80-105) H 10/01/18 09:21 POC ABG HCO3 30.4 10/01/18 09:21 POC ABG Total CO2 32 10/01/18 09:21 POC ABG O2 Sat 98 10/01/18 09:21 PT/INR, D-dimer D-Dimer 4401.15 ng/mlDDU (0-234) H 09/21/18 22:56 Abnormal lab findings: Abnormal Labs 09/21/18 09/21/18 09/21/18 22:56 22:56 22:56 WBC RBC 3.05 L Hgb 9.0 L Hct 26.9 L Lymph % (Auto) 9.3 L [place] % (Auto) Lymph # 0.7 L [place] # Seg Neutrophils % 84.0 H Seg Neuts % (Manual) Lymphocytes % (Manual) Seg Neutrophils # Man Lymphocytes # (Manual) D-Dimer POC ABG pH POC ABG pCO2 POC ABG pO2 Sodium Potassium 5.2 H Chloride Carbon Dioxide 17 L BUN 53 H Creatinine 6.7 H Glucose 307 H POC Glucose Lactic Acid Calcium 8.2 L Phosphorus Iron TIBC Transferrin CK-MB (CK-2) CK-MB (CK-2) Rel Index Troponin T Serum Total Protein Albumin 3.6 L Zmmdt-5-Xtqodudtz PEP Interpretation Triglycerides Cholesterol LDL Cholesterol Direct PTH Intact Urine WBC (Auto) Urine Creatinine Salicylates < 0.3 L Acetaminophen 09/21/18 09/21/18 09/21/18 22:56 22:56 22:56 WBC RBC Hgb Hct Lymph % (Auto) [place] % (Auto) Lymph # [place] # Seg Neutrophils % Seg Neuts % (Manual) Lymphocytes % (Manual) Seg Neutrophils # Man Lymphocytes # (Manual) D-Dimer 4401.15 H POC ABG pH POC ABG pCO2 POC ABG pO2 Sodium Potassium Chloride Carbon Dioxide BUN Creatinine Glucose POC Glucose Lactic Acid 3.70 H* Calcium Phosphorus Iron TIBC Transferrin CK-MB (CK-2) CK-MB (CK-2) Rel Index Troponin T Serum Total Protein Albumin Vosrx-2-Kirnzhcrc PEP Interpretation Triglycerides Cholesterol LDL Cholesterol Direct PTH Intact Urine WBC (Auto) Urine Creatinine Salicylates Acetaminophen < 5.0 L 09/21/18 09/21/18 09/22/18 23:14 23:57 00:48 WBC RBC Hgb Hct Lymph % (Auto) [place] % (Auto) Lymph # [place] # Seg Neutrophils % Seg Neuts % (Manual) Lymphocytes % (Manual) Seg Neutrophils # Man Lymphocytes # (Manual) D-Dimer POC ABG pH 7.234 L 7.322 L POC ABG pCO2 POC ABG pO2 118 H 142 H Sodium Potassium Chloride Carbon Dioxide BUN Creatinine Glucose POC Glucose Lactic Acid Calcium Phosphorus Iron TIBC Transferrin CK-MB (CK-2) CK-MB (CK-2) Rel Index Troponin T 0.062 H D Serum Total Protein Albumin Jqksq-5-Opotlsbav PEP Interpretation Triglycerides 208 H Cholesterol 206 H LDL Cholesterol Direct 143 H PTH Intact Urine WBC (Auto) Urine Creatinine Salicylates Acetaminophen 09/22/18 09/22/18 09/22/18 04:50 05:03 06:43 WBC RBC Hgb Hct Lymph % (Auto) [place] % (Auto) Lymph # [place] # Seg Neutrophils % Seg Neuts % (Manual) Lymphocytes % (Manual) Seg Neutrophils # Man Lymphocytes # (Manual) D-Dimer POC ABG pH 7.556 H POC ABG pCO2 22.4 L POC ABG pO2 176 H Sodium Potassium Chloride Carbon Dioxide BUN Creatinine Glucose POC Glucose 116 H Lactic Acid Calcium Phosphorus Iron TIBC Transferrin CK-MB (CK-2) 4.1 H CK-MB (CK-2) Rel Index 4.7 H Troponin T 0.107 H* D Serum Total Protein Albumin Zycrc-6-Hkptsdmyq PEP Interpretation Triglycerides Cholesterol LDL Cholesterol Direct PTH Intact Urine WBC (Auto) Urine Creatinine Salicylates Acetaminophen 09/22/18 09/22/18 09/22/18 09:12 10:26 18:00 WBC RBC Hgb Hct Lymph % (Auto) [place] % (Auto) Lymph # [place] # Seg Neutrophils % Seg Neuts % (Manual) Lymphocytes % (Manual) Seg Neutrophils # Man Lymphocytes # (Manual) D-Dimer POC ABG pH POC ABG pCO2 POC ABG pO2 Sodium Potassium Chloride Carbon Dioxide BUN Creatinine 6.7 H Glucose POC Glucose 124 H Lactic Acid Calcium Phosphorus Iron TIBC Transferrin CK-MB (CK-2) CK-MB (CK-2) Rel Index Troponin T 0.074 H D Serum Total Protein Albumin Uxsnu-2-Ebresmlkz PEP Interpretation Triglycerides Cholesterol LDL Cholesterol Direct PTH Intact Urine WBC (Auto) Urine Creatinine Salicylates Acetaminophen 09/23/18 09/23/18 09/23/18 03:57 04:24 04:24 WBC RBC 2.85 L Hgb 8.0 L Hct 24.4 L Lymph % (Auto) [place] % (Auto) 12.6 H Lymph # [place] # 1.1 H Seg Neutrophils % Seg Neuts % (Manual) Lymphocytes % (Manual) Seg Neutrophils # Man Lymphocytes # (Manual) D-Dimer POC ABG pH POC ABG pCO2 27.2 L POC ABG pO2 113 H Sodium Potassium Chloride 113.4 H Carbon Dioxide 19 L BUN 54 H Creatinine 7.0 H Glucose POC Glucose Lactic Acid Calcium 8.3 L Phosphorus Iron TIBC Transferrin CK-MB (CK-2) CK-MB (CK-2) Rel Index Troponin T Serum Total Protein Albumin Uosrj-9-Oisguteud PEP Interpretation Triglycerides Cholesterol LDL Cholesterol Direct PTH Intact Urine WBC (Auto) Urine Creatinine Salicylates Acetaminophen 09/23/18 09/23/18 09/23/18 05:32 16:00 16:00 WBC RBC Hgb Hct Lymph % (Auto) [place] % (Auto) Lymph # [place] # Seg Neutrophils % Seg Neuts % (Manual) Lymphocytes % (Manual) Seg Neutrophils # Man Lymphocytes # (Manual) D-Dimer POC ABG pH POC ABG pCO2 POC ABG pO2 Sodium Potassium Chloride Carbon Dioxide BUN Creatinine Glucose POC Glucose Lactic Acid Calcium Phosphorus Iron TIBC Transferrin CK-MB (CK-2) CK-MB (CK-2) Rel Index Troponin T Serum Total Protein 5.2 L Albumin 2.5 L Pdlmp-9-Tsasnpawg 0.4 H PEP Interpretation see below H Triglycerides Cholesterol LDL Cholesterol Direct PTH Intact Urine WBC (Auto) 13.0 H Urine Creatinine 80.7 H Salicylates Acetaminophen 09/23/18 09/23/18 09/24/18 18:47 23:53 04:28 WBC RBC 2.66 L Hgb 7.6 L Hct 22.5 L Lymph % (Auto) [place] % (Auto) Lymph # [place] # Seg Neutrophils % Seg Neuts % (Manual) Lymphocytes % (Manual) Seg Neutrophils # Man Lymphocytes # (Manual) D-Dimer POC ABG pH POC ABG pCO2 POC ABG pO2 Sodium Potassium Chloride Carbon Dioxide BUN Creatinine Glucose POC Glucose 115 H 145 H Lactic Acid Calcium Phosphorus Iron TIBC Transferrin CK-MB (CK-2) CK-MB (CK-2) Rel Index Troponin T Serum Total Protein Albumin Mcicf-0-Hcirzmejo PEP Interpretation Triglycerides Cholesterol LDL Cholesterol Direct PTH Intact Urine WBC (Auto) Urine Creatinine Salicylates Acetaminophen 09/24/18 09/24/18 09/24/18 04:28 04:56 05:33 WBC RBC Hgb Hct Lymph % (Auto) [place] % (Auto) Lymph # [place] # Seg Neutrophils % Seg Neuts % (Manual) Lymphocytes % (Manual) Seg Neutrophils # Man Lymphocytes # (Manual) D-Dimer POC ABG pH 7.551 H POC ABG pCO2 32.0 L POC ABG pO2 133 H Sodium Potassium Chloride Carbon Dioxide BUN 27 H Creatinine 4.8 H Glucose 129 H POC Glucose 127 H Lactic Acid Calcium 8.0 L Phosphorus Iron TIBC Transferrin CK-MB (CK-2) CK-MB (CK-2) Rel Index Troponin T Serum Total Protein Albumin Skdjh-5-Mlvoijrqt PEP Interpretation Triglycerides Cholesterol LDL Cholesterol Direct PTH Intact Urine WBC (Auto) Urine Creatinine Salicylates Acetaminophen 09/24/18 09/24/18 09/24/18 12:39 19:57 23:53 WBC RBC Hgb Hct Lymph % (Auto) [place] % (Auto) Lymph # [place] # Seg Neutrophils % Seg Neuts % (Manual) Lymphocytes % (Manual) Seg Neutrophils # Man Lymphocytes # (Manual) D-Dimer POC ABG pH POC ABG pCO2 POC ABG pO2 Sodium Potassium Chloride Carbon Dioxide BUN Creatinine Glucose POC Glucose 171 H 209 H 158 H Lactic Acid Calcium Phosphorus Iron TIBC Transferrin CK-MB (CK-2) CK-MB (CK-2) Rel Index Troponin T Serum Total Protein Albumin Wyxme-2-Pivouoayv PEP Interpretation Triglycerides Cholesterol LDL Cholesterol Direct PTH Intact Urine WBC (Auto) Urine Creatinine Salicylates Acetaminophen 09/25/18 09/25/18 09/25/18 04:06 04:06 05:16 WBC RBC 2.73 L Hgb 7.9 L Hct 23.4 L Lymph % (Auto) [place] % (Auto) Lymph # [place] # Seg Neutrophils % Seg Neuts % (Manual) Lymphocytes % (Manual) Seg Neutrophils # Man Lymphocytes # (Manual) D-Dimer POC ABG pH 7.477 H POC ABG pCO2 POC ABG pO2 122 H Sodium Potassium Chloride 97.2 L Carbon Dioxide BUN Creatinine 3.6 H Glucose 118 H POC Glucose Lactic Acid Calcium 8.2 L Phosphorus Iron TIBC Transferrin CK-MB (CK-2) CK-MB (CK-2) Rel Index Troponin T Serum Total Protein Albumin Bdckd-7-Lzdoartxr PEP Interpretation Triglycerides Cholesterol LDL Cholesterol Direct PTH Intact Urine WBC (Auto) Urine Creatinine Salicylates Acetaminophen 09/25/18 09/25/18 09/25/18 05:55 12:29 16:21 WBC RBC Hgb Hct Lymph % (Auto) [place] % (Auto) Lymph # [place] # Seg Neutrophils % Seg Neuts % (Manual) Lymphocytes % (Manual) Seg Neutrophils # Man Lymphocytes # (Manual) D-Dimer POC ABG pH 7.216 L POC ABG pCO2 79.9 H POC ABG pO2 Sodium Potassium Chloride Carbon Dioxide BUN Creatinine Glucose POC Glucose 144 H 128 H Lactic Acid Calcium Phosphorus Iron TIBC Transferrin CK-MB (CK-2) CK-MB (CK-2) Rel Index Troponin T Serum Total Protein Albumin Xfijn-3-Bbclwexkf PEP Interpretation Triglycerides Cholesterol LDL Cholesterol Direct PTH Intact Urine WBC (Auto) Urine Creatinine Salicylates Acetaminophen 09/25/18 09/25/18 09/25/18 18:27 18:44 23:56 WBC RBC Hgb Hct Lymph % (Auto) [place] % (Auto) Lymph # [place] # Seg Neutrophils % Seg Neuts % (Manual) Lymphocytes % (Manual) Seg Neutrophils # Man Lymphocytes # (Manual) D-Dimer POC ABG pH POC ABG pCO2 53.2 H POC ABG pO2 78 L Sodium Potassium Chloride Carbon Dioxide BUN Creatinine Glucose POC Glucose 264 H 170 H Lactic Acid Calcium Phosphorus Iron TIBC Transferrin CK-MB (CK-2) CK-MB (CK-2) Rel Index Troponin T Serum Total Protein Albumin Rvhzl-7-Huicpcxrh PEP Interpretation Triglycerides Cholesterol LDL Cholesterol Direct PTH Intact Urine WBC (Auto) Urine Creatinine Salicylates Acetaminophen 09/26/18 09/26/18 09/26/18 03:46 04:51 05:04 WBC RBC Hgb Hct Lymph % (Auto) [place] % (Auto) Lymph # [place] # Seg Neutrophils % Seg Neuts % (Manual) Lymphocytes % (Manual) Seg Neutrophils # Man Lymphocytes # (Manual) D-Dimer POC ABG pH 7.584 H POC ABG pCO2 30.9 L POC ABG pO2 151 H Sodium Potassium Chloride 95.5 L Carbon Dioxide BUN 34 H Creatinine 5.4 H Glucose 185 H POC Glucose 186 H Lactic Acid Calcium Phosphorus Iron TIBC Transferrin CK-MB (CK-2) CK-MB (CK-2) Rel Index Troponin T Serum Total Protein Albumin Gyrul-0-Tajolcwnz PEP Interpretation Triglycerides Cholesterol LDL Cholesterol Direct PTH Intact Urine WBC (Auto) Urine Creatinine Salicylates Acetaminophen 09/26/18 09/26/18 09/26/18 06:23 12:41 17:55 WBC RBC Hgb Hct Lymph % (Auto) [place] % (Auto) Lymph # [place] # Seg Neutrophils % Seg Neuts % (Manual) Lymphocytes % (Manual) Seg Neutrophils # Man Lymphocytes # (Manual) D-Dimer POC ABG pH 7.330 L POC ABG pCO2 49.9 H POC ABG pO2 Sodium Potassium Chloride Carbon Dioxide BUN Creatinine Glucose POC Glucose 182 H 171 H Lactic Acid Calcium Phosphorus Iron TIBC Transferrin CK-MB (CK-2) CK-MB (CK-2) Rel Index Troponin T Serum Total Protein Albumin Bzkfv-8-Jmuwtmivp PEP Interpretation Triglycerides Cholesterol LDL Cholesterol Direct PTH Intact Urine WBC (Auto) Urine Creatinine Salicylates Acetaminophen 09/27/18 09/27/18 09/27/18 00:06 05:11 05:36 WBC RBC Hgb Hct Lymph % (Auto) [place] % (Auto) Lymph # [place] # Seg Neutrophils % Seg Neuts % (Manual) Lymphocytes % (Manual) Seg Neutrophils # Man Lymphocytes # (Manual) D-Dimer POC ABG pH POC ABG pCO2 POC ABG pO2 136 H Sodium Potassium Chloride Carbon Dioxide BUN Creatinine Glucose POC Glucose 170 H 115 H Lactic Acid Calcium Phosphorus Iron TIBC Transferrin CK-MB (CK-2) CK-MB (CK-2) Rel Index Troponin T Serum Total Protein Albumin Pujmz-1-Rifbgidii PEP Interpretation Triglycerides Cholesterol LDL Cholesterol Direct PTH Intact Urine WBC (Auto) Urine Creatinine Salicylates Acetaminophen 09/27/18 09/27/18 09/27/18 06:05 11:51 18:17 WBC RBC Hgb Hct Lymph % (Auto) [place] % (Auto) Lymph # [place] # Seg Neutrophils % Seg Neuts % (Manual) Lymphocytes % (Manual) Seg Neutrophils # Man Lymphocytes # (Manual) D-Dimer POC ABG pH POC ABG pCO2 POC ABG pO2 Sodium Potassium Chloride 95.0 L Carbon Dioxide BUN 39 H Creatinine 5.1 H Glucose 145 H POC Glucose 181 H 214 H Lactic Acid Calcium Phosphorus Iron TIBC Transferrin CK-MB (CK-2) CK-MB (CK-2) Rel Index Troponin T Serum Total Protein Albumin Cihjk-2-Smeobksgh PEP Interpretation Triglycerides Cholesterol LDL Cholesterol Direct PTH Intact Urine WBC (Auto) Urine Creatinine Salicylates Acetaminophen 09/27/18 09/28/18 09/28/18 23:28 04:39 04:44 WBC RBC Hgb Hct Lymph % (Auto) [place] % (Auto) Lymph # [place] # Seg Neutrophils % Seg Neuts % (Manual) Lymphocytes % (Manual) Seg Neutrophils # Man Lymphocytes # (Manual) D-Dimer POC ABG pH POC ABG pCO2 POC ABG pO2 151 H Sodium 134 L Potassium Chloride 95.2 L Carbon Dioxide BUN 61 H Creatinine 7.2 H Glucose 165 H POC Glucose 127 H Lactic Acid Calcium 8.0 L Phosphorus Iron TIBC Transferrin CK-MB (CK-2) CK-MB (CK-2) Rel Index Troponin T Serum Total Protein Albumin Ufsmz-8-Ulufyuapv PEP Interpretation Triglycerides Cholesterol LDL Cholesterol Direct PTH Intact Urine WBC (Auto) Urine Creatinine Salicylates Acetaminophen 09/28/18 09/28/18 09/28/18 05:47 11:36 17:51 WBC RBC Hgb Hct Lymph % (Auto) [place] % (Auto) Lymph # [place] # Seg Neutrophils % Seg Neuts % (Manual) Lymphocytes % (Manual) Seg Neutrophils # Man Lymphocytes # (Manual) D-Dimer POC ABG pH POC ABG pCO2 POC ABG pO2 Sodium Potassium Chloride Carbon Dioxide BUN Creatinine Glucose POC Glucose 159 H 240 H 268 H Lactic Acid Calcium Phosphorus Iron TIBC Transferrin CK-MB (CK-2) CK-MB (CK-2) Rel Index Troponin T Serum Total Protein Albumin Khtun-1-Foqwmccnz PEP Interpretation Triglycerides Cholesterol LDL Cholesterol Direct PTH Intact Urine WBC (Auto) Urine Creatinine Salicylates Acetaminophen 09/28/18 09/29/18 09/29/18 23:24 05:20 09:45 WBC RBC Hgb Hct Lymph % (Auto) [place] % (Auto) Lymph # [place] # Seg Neutrophils % Seg Neuts % (Manual) Lymphocytes % (Manual) Seg Neutrophils # Man Lymphocytes # (Manual) D-Dimer POC ABG pH POC ABG pCO2 POC ABG pO2 56 L Sodium Potassium Chloride Carbon Dioxide BUN Creatinine Glucose POC Glucose 194 H 127 H Lactic Acid Calcium Phosphorus Iron TIBC Transferrin CK-MB (CK-2) CK-MB (CK-2) Rel Index Troponin T Serum Total Protein Albumin Cvvrv-8-Agfdzilis PEP Interpretation Triglycerides Cholesterol LDL Cholesterol Direct PTH Intact Urine WBC (Auto) Urine Creatinine Salicylates Acetaminophen 09/29/18 09/29/18 09/29/18 09:54 10:48 10:48 WBC 14.5 H RBC 2.67 L Hgb 7.4 L Hct 22.6 L Lymph % (Auto) [place] % (Auto) Lymph # [place] # Seg Neutrophils % Seg Neuts % (Manual) 90.0 H Lymphocytes % (Manual) 6.0 L Seg Neutrophils # Man 13.1 H Lymphocytes # (Manual) 0.9 L D-Dimer POC ABG pH POC ABG pCO2 POC ABG pO2 72 L Sodium Potassium Chloride Carbon Dioxide BUN Creatinine Glucose POC Glucose Lactic Acid Calcium Phosphorus 5.30 H Iron 15 L TIBC 146 L Transferrin 109 L CK-MB (CK-2) CK-MB (CK-2) Rel Index Troponin T Serum Total Protein Albumin Uwdlh-8-Iwmfnwakv PEP Interpretation Triglycerides Cholesterol LDL Cholesterol Direct PTH Intact Urine WBC (Auto) Urine Creatinine Salicylates Acetaminophen 09/29/18 09/29/18 09/29/18 10:48 12:24 18:25 WBC RBC Hgb Hct Lymph % (Auto) [place] % (Auto) Lymph # [place] # Seg Neutrophils % Seg Neuts % (Manual) Lymphocytes % (Manual) Seg Neutrophils # Man Lymphocytes # (Manual) D-Dimer POC ABG pH POC ABG pCO2 POC ABG pO2 Sodium Potassium Chloride Carbon Dioxide BUN Creatinine Glucose POC Glucose 260 H 203 H Lactic Acid Calcium Phosphorus Iron TIBC Transferrin CK-MB (CK-2) CK-MB (CK-2) Rel Index Troponin T Serum Total Protein Albumin Qzrhu-7-Mpexslhna PEP Interpretation Triglycerides Cholesterol LDL Cholesterol Direct PTH Intact 417.9 H Urine WBC (Auto) Urine Creatinine Salicylates Acetaminophen 09/30/18 09/30/18 09/30/18 00:14 05:12 12:06 WBC RBC Hgb Hct Lymph % (Auto) [place] % (Auto) Lymph # [place] # Seg Neutrophils % Seg Neuts % (Manual) Lymphocytes % (Manual) Seg Neutrophils # Man Lymphocytes # (Manual) D-Dimer POC ABG pH POC ABG pCO2 POC ABG pO2 Sodium Potassium Chloride Carbon Dioxide BUN Creatinine Glucose POC Glucose 260 H 136 H 193 H Lactic Acid Calcium Phosphorus Iron TIBC Transferrin CK-MB (CK-2) CK-MB (CK-2) Rel Index Troponin T Serum Total Protein Albumin Baslh-9-Alvxvnalc PEP Interpretation Triglycerides Cholesterol LDL Cholesterol Direct PTH Intact Urine WBC (Auto) Urine Creatinine Salicylates Acetaminophen 09/30/18 09/30/18 10/01/18 17:23 23:29 05:48 WBC 16.4 H RBC 2.55 L Hgb 7.1 L Hct 21.9 L Lymph % (Auto) [place] % (Auto) Lymph # [place] # Seg Neutrophils % Seg Neuts % (Manual) Lymphocytes % (Manual) Seg Neutrophils # Man Lymphocytes # (Manual) D-Dimer POC ABG pH POC ABG pCO2 POC ABG pO2 Sodium Potassium Chloride Carbon Dioxide BUN Creatinine Glucose POC Glucose 119 H 159 H Lactic Acid Calcium Phosphorus Iron TIBC Transferrin CK-MB (CK-2) CK-MB (CK-2) Rel Index Troponin T Serum Total Protein Albumin Wmdsa-8-Fhonospih PEP Interpretation Triglycerides Cholesterol LDL Cholesterol Direct PTH Intact Urine WBC (Auto) Urine Creatinine Salicylates Acetaminophen 10/01/18 10/01/18 05:48 09:21 WBC RBC Hgb Hct Lymph % (Auto) [place] % (Auto) Lymph # [place] # Seg Neutrophils % Seg Neuts % (Manual) Lymphocytes % (Manual) Seg Neutrophils # Man Lymphocytes # (Manual) D-Dimer POC ABG pH 7.462 H POC ABG pCO2 POC ABG pO2 108 H Sodium Potassium Chloride 95.6 L Carbon Dioxide BUN 53 H Creatinine 6.5 H Glucose POC Glucose Lactic Acid Calcium Phosphorus Iron TIBC Transferrin CK-MB (CK-2) CK-MB (CK-2) Rel Index Troponin T Serum Total Protein Albumin Yrebu-3-Djllojpky PEP Interpretation Triglycerides Cholesterol LDL Cholesterol Direct PTH Intact Urine WBC (Auto) Urine Creatinine Salicylates Acetaminophen
[2018-10-01] MEDS: LANTUS SUB-Q SCH (21:19)
[2018-10-02] MEDS: HumaLOG SUB-Q SCH ×4 (05:45→18:13)
[2018-10-02] MEDS: APRESOLINE PO SCH ×3 (08:25→23:36)
--- NOTE | 2018-10-02 08:58 | Progress Note ---
Subjective Principal diagnosis: acute respiratory failure, end-stage renal disease, AMS Interval history: Patient was seen today for follow-up on multiple renal related issues Currently in hemodialysis 3 times a week Events of 24 hours noted Interdisciplinary Notes were also reviewed past medical history:: Reviewed Allergies: Reviewed Family history: Reviewed Physical examination HEENT: Oral mucosa moist Neck: Supple no JVD Chest: Clear to auscultation anteriorly Posteriorly has crackles in bases CVS: Regular rate and rhythm S1 and S2 heard Abdomen: Soft nontender no suprapubic masses no organomegaly appreciable Extremity: Dry skin less than 1+ peripheral edema Musculoskeletal: No joint effusion noted in knees and ankle Dermatology: No petechial rashes Psychiatry: No evidence of any agitation and aggression noted Assessment and plan Advanced renal failure likely end-stage renal disease, patient is currently on maintenance hemodialysis 3 times per week which she has been tolerating well I have discussed that patient will need ongoing dialysis with family, her son, and they have been explained about poor renal prognosis in terms of continuing with renal replacement therapy. Patient will need a permacath placement, for ongoing dialysis. Her encephalopathy appears to be multifactorial at this time Renal mass: Patient will need a CT with contrast, when she is doing better from pulmonary standpoint Hyponatremia: Multifactorial in a patient with renal failure To monitor and follow mostly resulting from Respiratory failure currently extubated stable at this time Severe anemia: Patient will require follow-up on the hemoglobin and hematocrit likely will benefit from packed red blood cell transfusion periodically her anemia appears to be multifactorial , Her iron saturation is only 10% B12 folic acid normal Secondary hyperparathyroidism: PTH 417 phosphorus 5.3 We'll continue to follow and make recommendation from renal standpoint Objective - Vital Signs Vital signs: Vital Signs - 12hr 10/01/18 10/01/18 10/01/18 21:00 21:30 22:00 Temperature Pulse Rate 109 H 105 H 109 H Pulse Rate [ From Monitor] Respiratory 12 28 H 24 Rate Blood Pressure 175/72 173/64 157/63 O2 Sat by Pulse 100 100 100 Oximetry 10/01/18 10/01/18 10/01/18 22:08 22:30 23:00 Temperature Pulse Rate 121 H 112 H 134 H Pulse Rate [ From Monitor] Respiratory 23 19 37 H Rate Blood Pressure 157/69 164/67 150/66 O2 Sat by Pulse 100 100 100 Oximetry 10/01/18 10/02/18 10/02/18 23:30 00:00 00:30 Temperature 98.5 F Pulse Rate 109 H 99 H 136 H Pulse Rate [ 90 From Monitor] Respiratory 23 31 H 24 Rate Blood Pressure 190/73 190/73 190/73 O2 Sat by Pulse 100 100 100 Oximetry 10/02/18 10/02/18 10/02/18 01:00 01:30 02:00 Temperature Pulse Rate 91 H 94 H 101 H Pulse Rate [ From Monitor] Respiratory 28 H 27 H 25 H Rate Blood Pressure 180/72 188/71 188/71 O2 Sat by Pulse 100 100 99 Oximetry 10/02/18 10/02/18 10/02/18 02:30 03:00 03:30 Temperature Pulse Rate 89 111 H 82 Pulse Rate [ From Monitor] Respiratory 27 H 23 30 H Rate Blood Pressure 146/64 146/64 156/68 O2 Sat by Pulse 100 97 100 Oximetry 10/02/18 10/02/18 10/02/18 04:00 04:18 04:30 Temperature 98.8 F Pulse Rate 106 H 101 H Pulse Rate [ 90 From Monitor] Respiratory 30 H 24 Rate Blood Pressure 156/68 150/77 O2 Sat by Pulse 100 100 100 Oximetry 10/02/18 10/02/18 10/02/18 05:00 05:30 06:00 Temperature Pulse Rate 103 H 113 H 94 H Pulse Rate [ From Monitor] Respiratory 21 31 H 23 Rate Blood Pressure 150/77 161/80 161/80 O2 Sat by Pulse 100 100 100 Oximetry 10/02/18 10/02/18 10/02/18 06:30 07:00 07:53 Temperature Pulse Rate 117 H 103 H Pulse Rate [ From Monitor] Respiratory 23 22 Rate Blood Pressure 149/53 141/51 O2 Sat by Pulse 100 100 100 Oximetry - Lab 10/01/18 05:48 10/01/18 05:48 Most recent lab results Calcium 8.7 mg/dL (8.4-10.2) 10/01/18 05:48 Phosphorus 5.30 mg/dL (2.5-4.5) H 09/29/18 10:48 Urine Creatinine 80.7 mg/dL (0.1-20.0) H 09/23/18 16:00 Urine Sodium 66 mmol/L 09/23/18 16:00 Medications & Allergies - Medications Allergies/Adverse Reactions: Allergies codeine Adverse Reaction (Verified 09/23/18 10:09) Unknown Home Medications: Home Medications Medication Instructions Recorded Confirmed Last Taken Type ALBUTEROL NEB's [Proventil 0.083% 2.5 mg INHALATION Q6H PRN 09/25/18 09/25/18 Unknown History NEBS] Carvedilol 25 mg PO Q12H 09/25/18 09/25/18 Unknown History Clonidine 0.2 mg PO BID 09/25/18 09/25/18 Unknown History Doxazosin 2 mg PO DAILY 09/25/18 09/25/18 Unknown History Dss 100 mg PO BID 09/25/18 09/25/18 Unknown History Fluticasone [Flonase] 1 spray INNOSTRIL DAILY 09/25/18 09/25/18 Unknown History Insulin NPH/Regular [Novolin 70/30] 20 unit SQ DAILY 09/25/18 09/25/18 Unknown History Isosorbide Mononitrate 30 mg PO DAILY 09/25/18 09/25/18 Unknown History NIFEdipine [Nifedipine ER] 60 mg PO BID 09/25/18 09/25/18 Unknown History Sevelamer Carbonate 1 tab PO TID 09/25/18 09/25/18 Unknown History Simvastatin [Zocor] 1 tab PO DAILY 09/25/18 09/25/18 Unknown History Torsemide [Demadex] 0.5 tab PO DAILY 09/25/18 09/25/18 Unknown History hydrALAZINE 100 mg PO Q8H 09/25/18 09/25/18 Unknown History Active Medications: Generic Name Dose Route Start Last Admin Trade Name Freq PRN Reason Stop Dose Admin Acetaminophen 650 mg 09/22/18 04:14 09/26/18 03:56 Tylenol PO 650 mg Q4H PRN Administration Pain MILD(1-3)/Fever >100.5/MEJIA Lipase/Protease/Amylase 1 each 09/23/18 13:57 Pancrenuha Bourgeois 10,500 Unit FEEDTUBE PRN PRN For Clogged Feeding Tube Clonidine HCl 0.2 mg 09/28/18 10:00 09/28/18 12:02 Catapres-Tts Patch TD 0.2 mg Mae KAILA Administration Dextrose 50 ml 09/22/18 04:14 D50w (25gm) Syringe IV PRN PRN Hypoglycemia Enoxaparin Sodium 30 mg 09/22/18 10:00 10/01/18 09:42 Lovenox SUB-Q 30 mg QDAY KAILA Administration Epinephrine 0.5 ml 09/25/18 12:52 10/01/18 00:13 S2 Racepinephrine 2.25% IH 0.5 ml Q4HRT PRN Administration stridor Famotidine 20 mg 09/29/18 10:00 10/01/18 09:42 Pepcid PO 20 mg DAILY KAILA Administration Haloperidol Lactate 5 mg 10/01/18 11:00 Haldol IV Q6H PRN Agitation Hydralazine HCl 10 mg 09/22/18 19:30 09/30/18 18:35 Apresoline IV 10 mg Q4HR PRN Administration SBP>160 Hydralazine HCl 50 mg 09/29/18 14:00 10/02/18 08:25 Apresoline PO 50 mg TID KAILA Administration Sodium Chloride 100 mls @ 999 mls/hr 09/29/18 09:26 Nacl 0.9% IV CAROLINE PRN Hypotension Insulin Glargine 5 units 09/28/18 22:00 10/01/18 21:19 Lantus SUB-Q 5 units QHS KAILA Administration Insulin Human Lispro 0 unit 09/22/18 06:00 10/02/18 05:47 Humalog SUB-Q 2 unit Q6HR KAILA Administration Protocol Lorazepam 1 mg 09/23/18 10:06 09/29/18 20:32 Ativan IV 1 mg Q4H PRN Administration Agitation Ondansetron HCl 4 mg 09/30/18 22:58 Zofran IV Q8H PRN Nausea And Vomiting Senna/Docusate Sodium 2 tab 09/30/18 12:00 10/01/18 21:20 Senokot S PO 2 tab BID KAIAL Administration Simple Syrup 15 ml 09/23/18 13:57 Simple Syrup FEEDTUBE PRN PRN Hypoglycemia Simple Syrup 30 ml 09/23/18 13:57 Simple Syrup FEEDTUBE PRN PRN Hypoglycemia Sodium Bicarbonate 325 mg 09/23/18 13:57 Sodium Bicarbonate FEEDTUBE PRN PRN For Clogged Feeding Tube Sodium Chloride 10 ml 09/22/18 10:00 10/01/18 22:00 Sodium Chloride Flush Syringe 10 Ml IV 10 ml BID KAILA Administration Sodium Chloride 10 ml 09/22/18 04:14 Sodium Chloride Flush Syringe 10 Ml IV PRN PRN LINE FLUSH
--- NOTE | 2018-10-02 10:49 | Progress Note ---
Assessment and Plan Assessment and plan: 68 year old woman history of CHF, hypertension, diabetes, chronic kidney disease was brought to the emergency room for shortness of breath. The history is per the son Roshan, he stated he was not at the scene, [facility]. Patient was intubated in the emergency room, she is sedated, review of system is unobtainable. Nurse reported that the patient had copious amount of vomiting in the ER. Patient was intubated and on admission was noted very hypoxic on admission and was placed on mechanical ventilation, initial attempt to extubate resulted in reintubation. The patient was finally successfully extubated 09/30/18 and placed on BIPAP. she was started on dialysis on presentation following placement of vascath. Imaging studies are concerning for renal mass with work up ongoing. (1) Acute respiratory failure Current Visit: Yes Status: Acute Plan to address problem: Patient doing well since extubation. Continue nebs, oxygen and Pulmonary follow up (2)NSTEMI TYPE 2 Elevated troponin Current Visit: Yes Status: Acute Plan to address problem: Elevated troponin non-STEMI2. Aspirin beta lou continue current anticoagulation cardiology following. (3) SIRS Initially thought to have sepsis and concerning for Aspiration Pneumonia But re peat imaging studies did not support the diagnosis (4)Renal Mass Urology consult to evaluate for possible Renal cancer when patient is stable Recommned CT scan on Saturday for planned dialysis to further evaluate (5) CKD (chronic kidney disease) Current Visit: Yes Status: Chronic Qualifiers: Chronic kidney disease stage: unspecified stage Qualified Code(s): N18.9 - Chronic kidney disease, unspecified Plan to address problem: Chronic kidney disease continue hemodialysis tolerated Saturday. Status post right IJ Vas-Cath placement on 09/23/2018. -started on HD Discuss possible placement of permacath. will discuss with Pulmonary (6) Diabetes Current Visit: Yes Status: Chronic Plan to address problem: At present has fair control diabetes with sliding scale. We'll consider adding long-acting insulin may be 5 mg of Lantus daily at bedtime and titrate accordingly. (7) Hypertension Current Visit: Yes Status: Chronic Qualifiers: Hypertension type: essential hypertension Qualified Code(s): I10 - Essential (primary) hypertension Plan to address problem: Blood pressure much better controlled today. (8) Metabolic Encephalopathy Unsure etiology. Patient noted to be significantly hypoxic on EMS arrival, Appears to be improving. (9)Anemia- likely of ESRD s/p 1 unit prbc Clinically stable for Transfer to [facility] unit The high probability of a clinically significant, sudden or life threatening deterioration of the [pulmonary, cardiac, renal] system(s) required my full and direct attention, intervention and personal management. The aggregate critical care time was [35]minutes. This time is in addition to time spent performing reported procedures but includes the following: [x] Data Review and interpretation [x] Patient assessment and monitoring of vital signs [x] Documentation [x] Medication orders and management History Interval history: Patient is examined this morning, Continues to demostrate improvement, denies any pain, son is at bedside Hospitalist Physical - Physical exam Narrative exam: VITAL SIGNS: Reviewed. GENERAL: Remains ON Mechanical ventilatory support this am HEAD: No signs of head trauma. EYES: Pupils are equal. EARS: Hearing grossly intact. MOUTH: Oropharnygal normal, NGT in place NECK: No adenopathy, no JVD. CHEST: Chest with clear breath sounds bilaterally. No wheezes, rales, or rhonchi. CARDIAC: Regular rate and rhythm. S1 and S2, without murmurs, gallops, or rubs. VASCULAR: No Edema. Peripheral pulses normal and equal in all extremities. ABDOMEN: Soft, without detectable tenderness. No sign of distention. No rebound or guarding, and no masses palpated. Bowel Sounds normal. MUSCULOSKELETAL: Good range of motion of all major joints. Extremities without clubbing, cyanosis or edema. NEUROLOGIC EXAM: Awake and orientationx2. No focal sensory or strength deficits. PSYCHIATRIC: Unable to assess SKIN: No rash or lesions. - Constitutional Vitals: Temp Pulse Resp BP Pulse Ox 98.8 F 102 H 29 H 153/60 99 10/02/18 04:00 10/02/18 10:00 10/02/18 10:00 10/02/18 10:00 10/02/18 10:00 General appearance: Present: no acute distress, mild distress, other (intubated, sedated) Results - Labs CBC & Chem 7: 10/01/18 05:48 10/01/18 05:48 Labs: Laboratory Last Values WBC 16.4 K/mm3 (4.5-11.0) H 10/01/18 05:48 RBC 2.55 M/mm3 (3.65-5.03) L 10/01/18 05:48 Hgb 7.1 gm/dl (10.1-14.3) L 10/01/18 05:48 Hct 21.9 % (30.3-42.9) L 10/01/18 05:48 MCV 86 fl (79-97) 10/01/18 05:48 MCH 28 pg (28-32) 10/01/18 05:48 MCHC 32 % (30-34) 10/01/18 05:48 RDW 14.8 % (13.2-15.2) 10/01/18 05:48 Plt Count 228 K/mm3 (140-440) 10/01/18 05:48 Lymph % (Auto) 16.7 % (13.4-35.0) 09/23/18 04:24 Holt % (Auto) 12.6 % (0.0-7.3) H 09/23/18 04:24 Eos % (Auto) 3.5 % (0.0-4.3) 09/23/18 04:24 Baso % (Auto) 1.5 % (0.0-1.8) 09/23/18 04:24 Lymph # 1.4 K/mm3 (1.2-5.4) 09/23/18 04:24 Holt # 1.1 K/mm3 (0.0-0.8) H 09/23/18 04:24 Eos # 0.3 K/mm3 (0.0-0.4) 09/23/18 04:24 Baso # 0.1 K/mm3 (0.0-0.1) 09/23/18 04:24 Add Manual Diff Complete 09/29/18 10:48 Total Counted 100 09/29/18 10:48 Seg Neutrophils % 65.7 % (40.0-70.0) 09/23/18 04:24 Seg Neuts % (Manual) 90.0 % (40.0-70.0) H 09/29/18 10:48 Band Neutrophils % 0 % 09/29/18 10:48 Lymphocytes % (Manual) 6.0 % (13.4-35.0) L 09/29/18 10:48 Reactive Lymphs % (Man) 0 % 09/29/18 10:48 Monocytes % (Manual) 0 % (0.0-7.3) 09/29/18 10:48 Eosinophils % (Manual) 1.0 % (0.0-4.3) 09/29/18 10:48 Basophils % (Manual) 1.0 % (0.0-1.8) 09/29/18 10:48 Metamyelocytes % 2.0 % 09/29/18 10:48 Myelocytes % 0 % 09/29/18 10:48 Promyelocytes % 0 % 09/29/18 10:48 Blast Cells % 0 % 09/29/18 10:48 Nucleated RBC % Not Reportable 09/29/18 10:48 Seg Neutrophils # 5.5 K/mm3 (1.8-7.7) 09/23/18 04:24 Seg Neutrophils # Man 13.1 K/mm3 (1.8-7.7) H 09/29/18 10:48 Band Neutrophils # 0.0 K/mm3 09/29/18 10:48 Lymphocytes # (Manual) 0.9 K/mm3 (1.2-5.4) L 09/29/18 10:48 Abs React Lymphs (Man) 0.0 K/mm3 09/29/18 10:48 Monocytes # (Manual) 0.0 K/mm3 (0.0-0.8) 09/29/18 10:48 Eosinophils # (Manual) 0.1 K/mm3 (0.0-0.4) 09/29/18 10:48 Basophils # (Manual) 0.1 K/mm3 (0.0-0.1) 09/29/18 10:48 Metamyelocytes # 0.3 K/mm3 09/29/18 10:48 Myelocytes # 0.0 K/mm3 09/29/18 10:48 Promyelocytes # 0.0 K/mm3 09/29/18 10:48 Blast Cells # 0.0 K/mm3 09/29/18 10:48 WBC Morphology Not Reportable 09/29/18 10:48 Hypersegmented Neuts Not Reportable 09/29/18 10:48 Hyposegmented Neuts Not Reportable 09/29/18 10:48 Hypogranular Neuts Not Reportable 09/29/18 10:48 Smudge Cells Not Reportable 09/29/18 10:48 Toxic Granulation Not Reportable 09/29/18 10:48 Toxic Vacuolation Not Reportable 09/29/18 10:48 Dohle Bodies Not Reportable 09/29/18 10:48 Pelger-Huet Anomaly Not Reportable 09/29/18 10:48 Kevin Rods Not Reportable 09/29/18 10:48 Platelet Estimate Consistent w auto 09/29/18 10:48 Clumped Platelets Not Reportable 09/29/18 10:48 Plt Clumps, EDTA Not Reportable 09/29/18 10:48 Large Platelets Not Reportable 09/29/18 10:48 Giant Platelets Not Reportable 09/29/18 10:48 Platelet Satelliting Not Reportable 09/29/18 10:48 Plt Morphology Comment Not Reportable 09/29/18 10:48 RBC Morphology Not Reportable 09/29/18 10:48 Dimorphic RBCs Not Reportable 09/29/18 10:48 Polychromasia Not Reportable 09/29/18 10:48 Hypochromasia Not Reportable 09/29/18 10:48 Poikilocytosis Not Reportable 09/29/18 10:48 Anisocytosis 1+ 09/29/18 10:48 Microcytosis Not Reportable 09/29/18 10:48 Macrocytosis Not Reportable 09/29/18 10:48 Spherocytes Not Reportable 09/29/18 10:48 Pappenheimer Bodies Not Reportable 09/29/18 10:48 Sickle Cells Not Reportable 09/29/18 10:48 Target Cells Not Reportable 09/29/18 10:48 Tear Drop Cells Not Reportable 09/29/18 10:48 Ovalocytes Not Reportable 09/29/18 10:48 Helmet Cells Not Reportable 09/29/18 10:48 [place] Bodies Not Reportable 09/29/18 10:48 [place] Rings Not Reportable 09/29/18 10:48 [place] Cells Not Reportable 09/29/18 10:48 Bite Cells Not Reportable 09/29/18 10:48 Crenated Cell Not Reportable 09/29/18 10:48 Elliptocytes Not Reportable 09/29/18 10:48 Acanthocytes (Spur) Not Reportable 09/29/18 10:48 Rouleaux Not Reportable 09/29/18 10:48 Hemoglobin C Crystals Not Reportable 09/29/18 10:48 Schistocytes Not Reportable 09/29/18 10:48 Malaria parasites Not Reportable 09/29/18 10:48 Sal Bodies Not Reportable 09/29/18 10:48 Hem Pathologist Commnt No 09/29/18 10:48 D-Dimer 4401.15 ng/mlDDU (0-234) H 09/21/18 22:56 POC ABG pH 7.462 (7.35-7.45) H 10/01/18 09:21 POC ABG pCO2 42.5 (35-45) 10/01/18 09:21 POC ABG pO2 108 (80-105) H 10/01/18 09:21 POC ABG HCO3 30.4 10/01/18 09:21 POC ABG Total CO2 32 10/01/18 09:21 POC ABG O2 Sat 98 10/01/18 09:21 POC ABG Base Excess 7 10/01/18 09:21 FiO2 30 % 10/01/18 09:21 Sodium 137 mmol/L (137-145) 10/01/18 05:48 Potassium 4.1 mmol/L (3.6-5.0) 10/01/18 05:48 Chloride 95.6 mmol/L (98-107) L 10/01/18 05:48 Carbon Dioxide 24 mmol/L (22-30) 10/01/18 05:48 Anion Gap 22 mmol/L 10/01/18 05:48 BUN 53 mg/dL (7-17) H 10/01/18 05:48 Creatinine 6.5 mg/dL (0.7-1.2) H 10/01/18 05:48 Estimated GFR 8 ml/min 10/01/18 05:48 BUN/Creatinine Ratio 8 % 10/01/18 05:48 Glucose 85 mg/dL (65-100) 10/01/18 05:48 POC Glucose 177 (70-105) H 10/02/18 05:06 Lactic Acid 1.70 mmol/L (0.7-2.0) 09/22/18 04:50 Calcium 8.7 mg/dL (8.4-10.2) 10/01/18 05:48 Phosphorus 5.30 mg/dL (2.5-4.5) H 09/29/18 10:48 Iron 15 ug/dL (37-170) L 09/29/18 10:48 TIBC 146 mcg/dL (250-450) L 09/29/18 10:48 % Saturation 10.27 % 09/29/18 10:48 Transferrin 109 mg/dl (192-382) L 09/29/18 10:48 Total Bilirubin 0.20 mg/dL (0.1-1.2) 09/21/18 22:56 AST 17 units/L (5-40) 09/21/18 22:56 ALT 9 units/L (7-56) 09/21/18 22:56 Alkaline Phosphatase 86 units/L (35-129) 09/21/18 22:56 Ammonia 57.0 umol/L (25-60) 09/21/18 22:56 Total Creatine Kinase 81 units/L (30-135) 09/22/18 10:26 CK-MB (CK-2) 3.1 ng/mL (0.0-4.0) 09/22/18 10:26 CK-MB (CK-2) Rel Index 3.8 (0-4) 09/22/18 10:26 Troponin T 0.074 ng/mL (0.00-0.029) H D 09/22/18 10:26 Serum Total Protein 5.2 g/dL (6.1-8.1) L 09/23/18 05:32 Total Protein 6.5 g/dL (6.3-8.2) 09/21/18 22:56 Albumin 2.5 g/dL (3.8-4.8) L 09/23/18 05:32 Albumin/Globulin Ratio 1.2 % 09/21/18 22:56 Ytnov-6-Oatvmtwud 0.4 g/dL (0.2-0.3) H 09/23/18 05:32 Rhyyc-5-Hfldwqwqf 0.8 g/dL (0.5-0.9) 09/23/18 05:32 Beta Globulins 0.4 g/dL (0.2-0.5) 09/23/18 05:32 Gamma Globulins 0.9 g/dL (0.8-1.7) 09/23/18 05:32 Abnorm Protein Band 1 see below 09/23/18 05:32 PEP Interpretation see below H 09/23/18 05:32 Triglycerides 208 mg/dL (2-149) H 09/21/18 23:57 Cholesterol 206 mg/dL (50-199) H 09/21/18 23:57 LDL Cholesterol Direct 143 mg/dL (50-130) H 09/21/18 23:57 HDL Cholesterol 40 mg/dL (40-59) 09/21/18 23:57 Cholesterol/HDL Ratio 5.15 % 09/21/18 23:57 Vitamin B12 839.9 pg/mL (211-911) 09/29/18 10:48 PTH Intact 417.9 pg/mL (15-65) H 09/29/18 10:48 Urine Color Yellow (Yellow) 09/23/18 16:00 Urine Turbidity Clear (Clear) 09/23/18 16:00 Urine pH 7.0 (5.0-7.0) 09/23/18 16:00 Ur Specific [place] 1.009 (1.003-1.030) 09/23/18 16:00 Urine Protein >500 mg/dL (Negative) 09/23/18 16:00 Urine Glucose (UA) 50 mg/dL (Negative) 09/23/18 16:00 Urine Ketones Neg mg/dL (Negative) 09/23/18 16:00 Urine Blood Neg (Negative) 09/23/18 16:00 Urine Nitrite Neg (Negative) 09/23/18 16:00 Urine Bilirubin Neg (Negative) 09/23/18 16:00 Urine Urobilinogen < 2.0 mg/dL (<2.0) 09/23/18 16:00 Ur Leukocyte Esterase Sm (Negative) 09/23/18 16:00 Urine WBC (Auto) 13.0 /HPF (0.0-6.0) H 09/23/18 16:00 Urine RBC (Auto) 1.0 /HPF (0.0-6.0) 09/23/18 16:00 U Epithel Cells (Auto) < 1.0 /HPF (0-13.0) 09/23/18 16:00 Urine Bacteria (Auto) 1+ /HPF (Negative) 09/23/18 16:00 Hyaline Casts 3 /LPF 09/23/18 16:00 Urine Mucus Few /HPF 09/23/18 16:00 Urine Eosinophils None seen (None Seen) 09/22/18 16:00 Urine Creatinine 80.7 mg/dL (0.1-20.0) H 09/23/18 16:00 Urine Sodium 66 mmol/L 09/23/18 16:00 Fraction Sodium Excret 3.6 09/23/18 16:00 Salicylates < 0.3 mg/dL (2.8-20.0) L 09/21/18 22:56 Acetaminophen < 5.0 ug/mL (10.0-30.0) L 09/21/18 22:56 Plasma/Serum Alcohol < 0.01 % (0-0.07) 09/21/18 22:56 AGATA Screen Negative (Negative) 09/22/18 18:06 Proteinase 3 (PR3) Ab <1.0 AI (<1.0) 09/22/18 18:06 Myeloperoxidase Ab <1.0 AI (<1.0) 09/22/18 18:06 Double Strand DNA Ab 1 IU/mL (<=4) 09/22/18 18:06 Complement C3 113 mg/dL (83-193) 09/22/18 18:06 Complement C4 57 mg/dL (15-57) 09/22/18 18:06 Hepatitis A IgM Ab Non-reactive (NonReactive) 09/22/18 18:06 Hep Bs Antigen Non-reactive (Negative) 09/22/18 18:06 Hep B Core IgM Ab Non-reactive (NonReactive) 09/22/18 18:06 Hepatitis C Antibody Non-reactive (NonReactive) 09/22/18 18:06 Blood Type A POSITIVE 10/01/18 10:47 Antibody Screen Negative 10/01/18 10:47 Crossmatch See Detail 10/01/18 10:47 Nutrition/Malnutrition Assess - Dietary Evaluation Nutrition/Malnutrition Findings: Nutrition Notes Start: 09/23/18 13:24 Freq: Status: Active Protocol: Document 09/29/18 14:27 ENEIDA (Rec: 09/29/18 14:32 ENEIDA [id number]-FNSERVIC ES1) Nutrition Notes Initial or Follow up Reassessment Current Diagnosis CKD (stage V CKD) Diabetes Hypertension Respiratory Failure Other Pertinent Diagnosis Pneu Current Diet TF - Nepro at 35ml/hr Labs/Tests Reviewed Pertinent Medications Lantus Height 5 ft 3 in Weight 75 kg [place] Body Weight (kg) 52.27 BMI 29.2 Subjective/Other Information Pt remains on vent support. She is tolerating TF at goal rate. Percent of energy/protein needs met: 100% energy 76% pro Burn Absent Trauma Absent #1 Nutrition Diagnosis Inadequate oral intake Diagnosis Progress(for reassessment Continues documentation) Is patient on ventilator? Yes Is Patient Ambulatory and/or Out of Bed No REE-([facility]-confined to bed) 1510.488 Calculation Used for Recommendations [facility] Additional Notes Pro needs 1.2-2g/k-150g/ day Fluid needs 1-1.5L/day Nutrition Intervention Nutrition Support: Continue Nepro at 35ml/hr Water flush of 150 ml q4h or per MD order Kcal 1,512 Protein (gm) 68 Fluid (mL) 610 Goal #1 TF tolerance Goal #2 TF to meet at least 80% energy and pro needs Follow-Up By: 10/07/18 Additional Comments F/U: stable TF, wt, vent status
[2018-10-02] MEDS: PEPCID PO SCH (10:54)
[2018-10-02] MEDS: LOVENOX SUB-Q SCH (10:54)
[2018-10-02] MEDS: SENOKOT S PO SCH ×2 (10:54→23:37)
[2018-10-02] MEDS: SODIUM CHLORIDE FLUSH SYRINGE 10 ML IV SCH (10:55)
--- NOTE | 2018-10-02 11:34 | Progress Note ---
Assessment and Plan 68 y/o female with acute respiratory failure and ESRD and now newly found renal mass on ultrasound 1. Bipap PRN and QHS. 2. Change Haldol to PRN, continue PRN ativan 3. Speech consult 4. Per renal, will obtain CT scan of abdomen pelvis on Saturday, awaiting "improvement in respiratory status" 5. Physical therapy consult 6. Stable for transfer out of unit, suggest JASON Subjective Date of service: 10/02/18 Principal diagnosis: acute respiratory failure, end-stage renal disease, AMS Interval history: Much improved today. Placed on soft mechanical diet but still having some difficulty with this. Son at bedside. Now weaned to 4 liters NC. Objective Vital Signs - 12hr 10/02/18 10/02/18 10/02/18 00:00 00:30 01:00 Temperature 98.5 F Pulse Rate 99 H 136 H 91 H Pulse Rate [ 90 From Monitor] Respiratory 31 H 24 28 H Rate Blood Pressure 190/73 190/73 180/72 O2 Sat by Pulse 100 100 100 Oximetry 10/02/18 10/02/18 10/02/18 01:30 02:00 02:30 Temperature Pulse Rate 94 H 101 H 89 Pulse Rate [ From Monitor] Respiratory 27 H 25 H 27 H Rate Blood Pressure 188/71 188/71 146/64 O2 Sat by Pulse 100 99 100 Oximetry 10/02/18 10/02/18 10/02/18 03:00 03:30 04:00 Temperature 98.8 F Pulse Rate 111 H 82 106 H Pulse Rate [ 90 From Monitor] Respiratory 23 30 H 30 H Rate Blood Pressure 146/64 156/68 156/68 O2 Sat by Pulse 97 100 100 Oximetry 10/02/18 10/02/18 10/02/18 04:18 04:30 05:00 Temperature Pulse Rate 101 H 103 H Pulse Rate [ From Monitor] Respiratory 24 21 Rate Blood Pressure 150/77 150/77 O2 Sat by Pulse 100 100 100 Oximetry 10/02/18 10/02/18 10/02/18 05:30 06:00 06:30 Temperature Pulse Rate 113 H 94 H 117 H Pulse Rate [ From Monitor] Respiratory 31 H 23 23 Rate Blood Pressure 161/80 161/80 149/53 O2 Sat by Pulse 100 100 100 Oximetry 10/02/18 10/02/18 10/02/18 07:00 07:30 07:53 Temperature Pulse Rate 103 H 103 H Pulse Rate [ From Monitor] Respiratory 22 26 H Rate Blood Pressure 141/51 141/51 O2 Sat by Pulse 100 100 100 Oximetry 10/02/18 10/02/18 10/02/18 08:00 08:30 09:00 Temperature Pulse Rate 92 H 113 H 102 H Pulse Rate [ 92 H From Monitor] Respiratory 27 H 28 H 20 Rate Blood Pressure 141/51 157/41 157/41 O2 Sat by Pulse 100 100 100 Oximetry 10/02/18 10/02/18 10/02/18 09:30 10:00 10:30 Temperature Pulse Rate 130 H 102 H 107 H Pulse Rate [ From Monitor] Respiratory 19 29 H 30 H Rate Blood Pressure 157/41 153/60 149/65 O2 Sat by Pulse 100 99 100 Oximetry 10/02/18 10/02/18 11:00 11:30 Temperature Pulse Rate 100 H 101 H Pulse Rate [ From Monitor] Respiratory 27 H 11 L Rate Blood Pressure 163/64 163/64 O2 Sat by Pulse 100 100 Oximetry Constitutional: no acute distress, other (orally intubated but not following commands this am. More movement in bed.) Eyes: non-icteric ENT: oropharynx moist, other (orally intubated) Effort: normal Ascultation: Bilateral: clear, diminished breath sounds Cardiovascular: regular rate and rhythm Gastrointestinal: normoactive bowel sounds, non-distended Integumentary: normal Extremities: no cyanosis, no edema Neurologic: other (RASS -1) CBC and BMP: 10/01/18 05:48 10/01/18 05:48 ABG, PT/INR, D-dimer: ABG POC ABG pH 7.462 (7.35-7.45) H 10/01/18 09:21 POC ABG pCO2 42.5 (35-45) 10/01/18 09:21 POC ABG pO2 108 (80-105) H 10/01/18 09:21 POC ABG HCO3 30.4 10/01/18 09:21 POC ABG Total CO2 32 10/01/18 09:21 POC ABG O2 Sat 98 10/01/18 09:21 PT/INR, D-dimer D-Dimer 4401.15 ng/mlDDU (0-234) H 09/21/18 22:56 Abnormal lab findings: Abnormal Labs 09/21/18 09/21/18 09/21/18 22:56 22:56 22:56 WBC RBC 3.05 L Hgb 9.0 L Hct 26.9 L Lymph % (Auto) 9.3 L [place] % (Auto) Lymph # 0.7 L [place] # Seg Neutrophils % 84.0 H Seg Neuts % (Manual) Lymphocytes % (Manual) Seg Neutrophils # Man Lymphocytes # (Manual) D-Dimer POC ABG pH POC ABG pCO2 POC ABG pO2 Sodium Potassium 5.2 H Chloride Carbon Dioxide 17 L BUN 53 H Creatinine 6.7 H Glucose 307 H POC Glucose Lactic Acid Calcium 8.2 L Phosphorus Iron TIBC Transferrin CK-MB (CK-2) CK-MB (CK-2) Rel Index Troponin T Serum Total Protein Albumin 3.6 L Nqzvb-2-Odpcmwvft PEP Interpretation Triglycerides Cholesterol LDL Cholesterol Direct PTH Intact Urine WBC (Auto) Urine Creatinine Salicylates < 0.3 L Acetaminophen Crossmatch 09/21/18 09/21/18 09/21/18 22:56 22:56 22:56 WBC RBC Hgb Hct Lymph % (Auto) [place] % (Auto) Lymph # [place] # Seg Neutrophils % Seg Neuts % (Manual) Lymphocytes % (Manual) Seg Neutrophils # Man Lymphocytes # (Manual) D-Dimer 4401.15 H POC ABG pH POC ABG pCO2 POC ABG pO2 Sodium Potassium Chloride Carbon Dioxide BUN Creatinine Glucose POC Glucose Lactic Acid 3.70 H* Calcium Phosphorus Iron TIBC Transferrin CK-MB (CK-2) CK-MB (CK-2) Rel Index Troponin T Serum Total Protein Albumin Meeqf-7-Pufnovznp PEP Interpretation Triglycerides Cholesterol LDL Cholesterol Direct PTH Intact Urine WBC (Auto) Urine Creatinine Salicylates Acetaminophen < 5.0 L Crossmatch 09/21/18 09/21/18 09/22/18 23:14 23:57 00:48 WBC RBC Hgb Hct Lymph % (Auto) [place] % (Auto) Lymph # [place] # Seg Neutrophils % Seg Neuts % (Manual) Lymphocytes % (Manual) Seg Neutrophils # Man Lymphocytes # (Manual) D-Dimer POC ABG pH 7.234 L 7.322 L POC ABG pCO2 POC ABG pO2 118 H 142 H Sodium Potassium Chloride Carbon Dioxide BUN Creatinine Glucose POC Glucose Lactic Acid Calcium Phosphorus Iron TIBC Transferrin CK-MB (CK-2) CK-MB (CK-2) Rel Index Troponin T 0.062 H D Serum Total Protein Albumin Mgycc-0-Iitzcgdku PEP Interpretation Triglycerides 208 H Cholesterol 206 H LDL Cholesterol Direct 143 H PTH Intact Urine WBC (Auto) Urine Creatinine Salicylates Acetaminophen Crossmatch 09/22/18 09/22/18 09/22/18 04:50 05:03 06:43 WBC RBC Hgb Hct Lymph % (Auto) [place] % (Auto) Lymph # [place] # Seg Neutrophils % Seg Neuts % (Manual) Lymphocytes % (Manual) Seg Neutrophils # Man Lymphocytes # (Manual) D-Dimer POC ABG pH 7.556 H POC ABG pCO2 22.4 L POC ABG pO2 176 H Sodium Potassium Chloride Carbon Dioxide BUN Creatinine Glucose POC Glucose 116 H Lactic Acid Calcium Phosphorus Iron TIBC Transferrin CK-MB (CK-2) 4.1 H CK-MB (CK-2) Rel Index 4.7 H Troponin T 0.107 H* D Serum Total Protein Albumin Cpcoq-4-Shnhsqaer PEP Interpretation Triglycerides Cholesterol LDL Cholesterol Direct PTH Intact Urine WBC (Auto) Urine Creatinine Salicylates Acetaminophen Crossmatch 09/22/18 09/22/18 09/22/18 09:12 10:26 18:00 WBC RBC Hgb Hct Lymph % (Auto) [place] % (Auto) Lymph # [place] # Seg Neutrophils % Seg Neuts % (Manual) Lymphocytes % (Manual) Seg Neutrophils # Man Lymphocytes # (Manual) D-Dimer POC ABG pH POC ABG pCO2 POC ABG pO2 Sodium Potassium Chloride Carbon Dioxide BUN Creatinine 6.7 H Glucose POC Glucose 124 H Lactic Acid Calcium Phosphorus Iron TIBC Transferrin CK-MB (CK-2) CK-MB (CK-2) Rel Index Troponin T 0.074 H D Serum Total Protein Albumin Zbnms-6-Tdfzwwiya PEP Interpretation Triglycerides Cholesterol LDL Cholesterol Direct PTH Intact Urine WBC (Auto) Urine Creatinine Salicylates Acetaminophen Crossmatch 09/23/18 09/23/18 09/23/18 03:57 04:24 04:24 WBC RBC 2.85 L Hgb 8.0 L Hct 24.4 L Lymph % (Auto) [place] % (Auto) 12.6 H Lymph # [place] # 1.1 H Seg Neutrophils % Seg Neuts % (Manual) Lymphocytes % (Manual) Seg Neutrophils # Man Lymphocytes # (Manual) D-Dimer POC ABG pH POC ABG pCO2 27.2 L POC ABG pO2 113 H Sodium Potassium Chloride 113.4 H Carbon Dioxide 19 L BUN 54 H Creatinine 7.0 H Glucose POC Glucose Lactic Acid Calcium 8.3 L Phosphorus Iron TIBC Transferrin CK-MB (CK-2) CK-MB (CK-2) Rel Index Troponin T Serum Total Protein Albumin Jvbgv-7-Deucjvvfl PEP Interpretation Triglycerides Cholesterol LDL Cholesterol Direct PTH Intact Urine WBC (Auto) Urine Creatinine Salicylates Acetaminophen Crossmatch 09/23/18 09/23/18 09/23/18 05:32 16:00 16:00 WBC RBC Hgb Hct Lymph % (Auto) [place] % (Auto) Lymph # [place] # Seg Neutrophils % Seg Neuts % (Manual) Lymphocytes % (Manual) Seg Neutrophils # Man Lymphocytes # (Manual) D-Dimer POC ABG pH POC ABG pCO2 POC ABG pO2 Sodium Potassium Chloride Carbon Dioxide BUN Creatinine Glucose POC Glucose Lactic Acid Calcium Phosphorus Iron TIBC Transferrin CK-MB (CK-2) CK-MB (CK-2) Rel Index Troponin T Serum Total Protein 5.2 L Albumin 2.5 L Ftydl-0-Auvztjpvt 0.4 H PEP Interpretation see below H Triglycerides Cholesterol LDL Cholesterol Direct PTH Intact Urine WBC (Auto) 13.0 H Urine Creatinine 80.7 H Salicylates Acetaminophen Crossmatch 09/23/18 09/23/18 09/24/18 18:47 23:53 04:28 WBC RBC 2.66 L Hgb 7.6 L Hct 22.5 L Lymph % (Auto) [place] % (Auto) Lymph # [place] # Seg Neutrophils % Seg Neuts % (Manual) Lymphocytes % (Manual) Seg Neutrophils # Man Lymphocytes # (Manual) D-Dimer POC ABG pH POC ABG pCO2 POC ABG pO2 Sodium Potassium Chloride Carbon Dioxide BUN Creatinine Glucose POC Glucose 115 H 145 H Lactic Acid Calcium Phosphorus Iron TIBC Transferrin CK-MB (CK-2) CK-MB (CK-2) Rel Index Troponin T Serum Total Protein Albumin Bfmxw-8-Nbwrpzpzb PEP Interpretation Triglycerides Cholesterol LDL Cholesterol Direct PTH Intact Urine WBC (Auto) Urine Creatinine Salicylates Acetaminophen Crossmatch 09/24/18 09/24/18 09/24/18 04:28 04:56 05:33 WBC RBC Hgb Hct Lymph % (Auto) [place] % (Auto) Lymph # [place] # Seg Neutrophils % Seg Neuts % (Manual) Lymphocytes % (Manual) Seg Neutrophils # Man Lymphocytes # (Manual) D-Dimer POC ABG pH 7.551 H POC ABG pCO2 32.0 L POC ABG pO2 133 H Sodium Potassium Chloride Carbon Dioxide BUN 27 H Creatinine 4.8 H Glucose 129 H POC Glucose 127 H Lactic Acid Calcium 8.0 L Phosphorus Iron TIBC Transferrin CK-MB (CK-2) CK-MB (CK-2) Rel Index Troponin T Serum Total Protein Albumin Xgvmz-8-Fvckwxpia PEP Interpretation Triglycerides Cholesterol LDL Cholesterol Direct PTH Intact Urine WBC (Auto) Urine Creatinine Salicylates Acetaminophen Crossmatch 09/24/18 09/24/18 09/24/18 12:39 19:57 23:53 WBC RBC Hgb Hct Lymph % (Auto) [place] % (Auto) Lymph # [place] # Seg Neutrophils % Seg Neuts % (Manual) Lymphocytes % (Manual) Seg Neutrophils # Man Lymphocytes # (Manual) D-Dimer POC ABG pH POC ABG pCO2 POC ABG pO2 Sodium Potassium Chloride Carbon Dioxide BUN Creatinine Glucose POC Glucose 171 H 209 H 158 H Lactic Acid Calcium Phosphorus Iron TIBC Transferrin CK-MB (CK-2) CK-MB (CK-2) Rel Index Troponin T Serum Total Protein Albumin Iaxgg-5-Qqgzwnatl PEP Interpretation Triglycerides Cholesterol LDL Cholesterol Direct PTH Intact Urine WBC (Auto) Urine Creatinine Salicylates Acetaminophen Crossmatch 09/25/18 09/25/18 09/25/18 04:06 04:06 05:16 WBC RBC 2.73 L Hgb 7.9 L Hct 23.4 L Lymph % (Auto) [place] % (Auto) Lymph # [place] # Seg Neutrophils % Seg Neuts % (Manual) Lymphocytes % (Manual) Seg Neutrophils # Man Lymphocytes # (Manual) D-Dimer POC ABG pH 7.477 H POC ABG pCO2 POC ABG pO2 122 H Sodium Potassium Chloride 97.2 L Carbon Dioxide BUN Creatinine 3.6 H Glucose 118 H POC Glucose Lactic Acid Calcium 8.2 L Phosphorus Iron TIBC Transferrin CK-MB (CK-2) CK-MB (CK-2) Rel Index Troponin T Serum Total Protein Albumin Jjsia-5-Mdelzmhdd PEP Interpretation Triglycerides Cholesterol LDL Cholesterol Direct PTH Intact Urine WBC (Auto) Urine Creatinine Salicylates Acetaminophen Crossmatch 09/25/18 09/25/18 09/25/18 05:55 12:29 16:21 WBC RBC Hgb Hct Lymph % (Auto) [place] % (Auto) Lymph # [place] # Seg Neutrophils % Seg Neuts % (Manual) Lymphocytes % (Manual) Seg Neutrophils # Man Lymphocytes # (Manual) D-Dimer POC ABG pH 7.216 L POC ABG pCO2 79.9 H POC ABG pO2 Sodium Potassium Chloride Carbon Dioxide BUN Creatinine Glucose POC Glucose 144 H 128 H Lactic Acid Calcium Phosphorus Iron TIBC Transferrin CK-MB (CK-2) CK-MB (CK-2) Rel Index Troponin T Serum Total Protein Albumin Oanwe-0-Xqncvloaa PEP Interpretation Triglycerides Cholesterol LDL Cholesterol Direct PTH Intact Urine WBC (Auto) Urine Creatinine Salicylates Acetaminophen Crossmatch 09/25/18 09/25/18 09/25/18 18:27 18:44 23:56 WBC RBC Hgb Hct Lymph % (Auto) [place] % (Auto) Lymph # [place] # Seg Neutrophils % Seg Neuts % (Manual) Lymphocytes % (Manual) Seg Neutrophils # Man Lymphocytes # (Manual) D-Dimer POC ABG pH POC ABG pCO2 53.2 H POC ABG pO2 78 L Sodium Potassium Chloride Carbon Dioxide BUN Creatinine Glucose POC Glucose 264 H 170 H Lactic Acid Calcium Phosphorus Iron TIBC Transferrin CK-MB (CK-2) CK-MB (CK-2) Rel Index Troponin T Serum Total Protein Albumin Olygv-8-Thhhhodkm PEP Interpretation Triglycerides Cholesterol LDL Cholesterol Direct PTH Intact Urine WBC (Auto) Urine Creatinine Salicylates Acetaminophen Crossmatch 09/26/18 09/26/18 09/26/18 03:46 04:51 05:04 WBC RBC Hgb Hct Lymph % (Auto) [place] % (Auto) Lymph # [place] # Seg Neutrophils % Seg Neuts % (Manual) Lymphocytes % (Manual) Seg Neutrophils # Man Lymphocytes # (Manual) D-Dimer POC ABG pH 7.584 H POC ABG pCO2 30.9 L POC ABG pO2 151 H Sodium Potassium Chloride 95.5 L Carbon Dioxide BUN 34 H Creatinine 5.4 H Glucose 185 H POC Glucose 186 H Lactic Acid Calcium Phosphorus Iron TIBC Transferrin CK-MB (CK-2) CK-MB (CK-2) Rel Index Troponin T Serum Total Protein Albumin Ppdak-3-Vacbsyynl PEP Interpretation Triglycerides Cholesterol LDL Cholesterol Direct PTH Intact Urine WBC (Auto) Urine Creatinine Salicylates Acetaminophen Crossmatch 09/26/18 09/26/18 09/26/18 06:23 12:41 17:55 WBC RBC Hgb Hct Lymph % (Auto) [place] % (Auto) Lymph # [place] # Seg Neutrophils % Seg Neuts % (Manual) Lymphocytes % (Manual) Seg Neutrophils # Man Lymphocytes # (Manual) D-Dimer POC ABG pH 7.330 L POC ABG pCO2 49.9 H POC ABG pO2 Sodium Potassium Chloride Carbon Dioxide BUN Creatinine Glucose POC Glucose 182 H 171 H Lactic Acid Calcium Phosphorus Iron TIBC Transferrin CK-MB (CK-2) CK-MB (CK-2) Rel Index Troponin T Serum Total Protein Albumin Igsby-5-Vusgqvkeg PEP Interpretation Triglycerides Cholesterol LDL Cholesterol Direct PTH Intact Urine WBC (Auto) Urine Creatinine Salicylates Acetaminophen Crossmatch 09/27/18 09/27/18 09/27/18 00:06 05:11 05:36 WBC RBC Hgb Hct Lymph % (Auto) [place] % (Auto) Lymph # [place] # Seg Neutrophils % Seg Neuts % (Manual) Lymphocytes % (Manual) Seg Neutrophils # Man Lymphocytes # (Manual) D-Dimer POC ABG pH POC ABG pCO2 POC ABG pO2 136 H Sodium Potassium Chloride Carbon Dioxide BUN Creatinine Glucose POC Glucose 170 H 115 H Lactic Acid Calcium Phosphorus Iron TIBC Transferrin CK-MB (CK-2) CK-MB (CK-2) Rel Index Troponin T Serum Total Protein Albumin Blrdk-9-Klromjxtn PEP Interpretation Triglycerides Cholesterol LDL Cholesterol Direct PTH Intact Urine WBC (Auto) Urine Creatinine Salicylates Acetaminophen Crossmatch 09/27/18 09/27/18 09/27/18 06:05 11:51 18:17 WBC RBC Hgb Hct Lymph % (Auto) [place] % (Auto) Lymph # [place] # Seg Neutrophils % Seg Neuts % (Manual) Lymphocytes % (Manual) Seg Neutrophils # Man Lymphocytes # (Manual) D-Dimer POC ABG pH POC ABG pCO2 POC ABG pO2 Sodium Potassium Chloride 95.0 L Carbon Dioxide BUN 39 H Creatinine 5.1 H Glucose 145 H POC Glucose 181 H 214 H Lactic Acid Calcium Phosphorus Iron TIBC Transferrin CK-MB (CK-2) CK-MB (CK-2) Rel Index Troponin T Serum Total Protein Albumin Uobeb-1-Aehqtyiok PEP Interpretation Triglycerides Cholesterol LDL Cholesterol Direct PTH Intact Urine WBC (Auto) Urine Creatinine Salicylates Acetaminophen Crossmatch 09/27/18 09/28/18 09/28/18 23:28 04:39 04:44 WBC RBC Hgb Hct Lymph % (Auto) [place] % (Auto) Lymph # [place] # Seg Neutrophils % Seg Neuts % (Manual) Lymphocytes % (Manual) Seg Neutrophils # Man Lymphocytes # (Manual) D-Dimer POC ABG pH POC ABG pCO2 POC ABG pO2 151 H Sodium 134 L Potassium Chloride 95.2 L Carbon Dioxide BUN 61 H Creatinine 7.2 H Glucose 165 H POC Glucose 127 H Lactic Acid Calcium 8.0 L Phosphorus Iron TIBC Transferrin CK-MB (CK-2) CK-MB (CK-2) Rel Index Troponin T Serum Total Protein Albumin Pctar-4-Hsetlwxwq PEP Interpretation Triglycerides Cholesterol LDL Cholesterol Direct PTH Intact Urine WBC (Auto) Urine Creatinine Salicylates Acetaminophen Crossmatch 09/28/18 09/28/18 09/28/18 05:47 11:36 17:51 WBC RBC Hgb Hct Lymph % (Auto) [place] % (Auto) Lymph # [place] # Seg Neutrophils % Seg Neuts % (Manual) Lymphocytes % (Manual) Seg Neutrophils # Man Lymphocytes # (Manual) D-Dimer POC ABG pH POC ABG pCO2 POC ABG pO2 Sodium Potassium Chloride Carbon Dioxide BUN Creatinine Glucose POC Glucose 159 H 240 H 268 H Lactic Acid Calcium Phosphorus Iron TIBC Transferrin CK-MB (CK-2) CK-MB (CK-2) Rel Index Troponin T Serum Total Protein Albumin Clbaj-8-Tnnooybvo PEP Interpretation Triglycerides Cholesterol LDL Cholesterol Direct PTH Intact Urine WBC (Auto) Urine Creatinine Salicylates Acetaminophen Crossmatch 09/28/18 09/29/18 09/29/18 23:24 05:20 09:45 WBC RBC Hgb Hct Lymph % (Auto) [place] % (Auto) Lymph # [place] # Seg Neutrophils % Seg Neuts % (Manual) Lymphocytes % (Manual) Seg Neutrophils # Man Lymphocytes # (Manual) D-Dimer POC ABG pH POC ABG pCO2 POC ABG pO2 56 L Sodium Potassium Chloride Carbon Dioxide BUN Creatinine Glucose POC Glucose 194 H 127 H Lactic Acid Calcium Phosphorus Iron TIBC Transferrin CK-MB (CK-2) CK-MB (CK-2) Rel Index Troponin T Serum Total Protein Albumin Tyvgm-6-Tzxziflwa PEP Interpretation Triglycerides Cholesterol LDL Cholesterol Direct PTH Intact Urine WBC (Auto) Urine Creatinine Salicylates Acetaminophen Crossmatch 09/29/18 09/29/18 09/29/18 09:54 10:48 10:48 WBC 14.5 H RBC 2.67 L Hgb 7.4 L Hct 22.6 L Lymph % (Auto) [place] % (Auto) Lymph # [place] # Seg Neutrophils % Seg Neuts % (Manual) 90.0 H Lymphocytes % (Manual) 6.0 L Seg Neutrophils # Man 13.1 H Lymphocytes # (Manual) 0.9 L D-Dimer POC ABG pH POC ABG pCO2 POC ABG pO2 72 L Sodium Potassium Chloride Carbon Dioxide BUN Creatinine Glucose POC Glucose Lactic Acid Calcium Phosphorus 5.30 H Iron 15 L TIBC 146 L Transferrin 109 L CK-MB (CK-2) CK-MB (CK-2) Rel Index Troponin T Serum Total Protein Albumin Sujhm-7-Jmofewpda PEP Interpretation Triglycerides Cholesterol LDL Cholesterol Direct PTH Intact Urine WBC (Auto) Urine Creatinine Salicylates Acetaminophen Crossmatch 09/29/18 09/29/18 09/29/18 10:48 12:24 18:25 WBC RBC Hgb Hct Lymph % (Auto) [place] % (Auto) Lymph # [place] # Seg Neutrophils % Seg Neuts % (Manual) Lymphocytes % (Manual) Seg Neutrophils # Man Lymphocytes # (Manual) D-Dimer POC ABG pH POC ABG pCO2 POC ABG pO2 Sodium Potassium Chloride Carbon Dioxide BUN Creatinine Glucose POC Glucose 260 H 203 H Lactic Acid Calcium Phosphorus Iron TIBC Transferrin CK-MB (CK-2) CK-MB (CK-2) Rel Index Troponin T Serum Total Protein Albumin Oiain-9-Iebsmlerf PEP Interpretation Triglycerides Cholesterol LDL Cholesterol Direct PTH Intact 417.9 H Urine WBC (Auto) Urine Creatinine Salicylates Acetaminophen Crossmatch 09/30/18 09/30/18 09/30/18 00:14 05:12 12:06 WBC RBC Hgb Hct Lymph % (Auto) [place] % (Auto) Lymph # [place] # Seg Neutrophils % Seg Neuts % (Manual) Lymphocytes % (Manual) Seg Neutrophils # Man Lymphocytes # (Manual) D-Dimer POC ABG pH POC ABG pCO2 POC ABG pO2 Sodium Potassium Chloride Carbon Dioxide BUN Creatinine Glucose POC Glucose 260 H 136 H 193 H Lactic Acid Calcium Phosphorus Iron TIBC Transferrin CK-MB (CK-2) CK-MB (CK-2) Rel Index Troponin T Serum Total Protein Albumin Lmefj-3-Ymtbhlldh PEP Interpretation Triglycerides Cholesterol LDL Cholesterol Direct PTH Intact Urine WBC (Auto) Urine Creatinine Salicylates Acetaminophen Crossmatch 09/30/18 09/30/18 10/01/18 17:23 23:29 05:48 WBC 16.4 H RBC 2.55 L Hgb 7.1 L Hct 21.9 L Lymph % (Auto) [place] % (Auto) Lymph # [place] # Seg Neutrophils % Seg Neuts % (Manual) Lymphocytes % (Manual) Seg Neutrophils # Man Lymphocytes # (Manual) D-Dimer POC ABG pH POC ABG pCO2 POC ABG pO2 Sodium Potassium Chloride Carbon Dioxide BUN Creatinine Glucose POC Glucose 119 H 159 H Lactic Acid Calcium Phosphorus Iron TIBC Transferrin CK-MB (CK-2) CK-MB (CK-2) Rel Index Troponin T Serum Total Protein Albumin Fdkwu-9-Xhdkptqxh PEP Interpretation Triglycerides Cholesterol LDL Cholesterol Direct PTH Intact Urine WBC (Auto) Urine Creatinine Salicylates Acetaminophen Crossmatch 10/01/18 10/01/18 10/01/18 05:48 09:21 10:47 WBC RBC Hgb Hct Lymph % (Auto) [place] % (Auto) Lymph # [place] # Seg Neutrophils % Seg Neuts % (Manual) Lymphocytes % (Manual) Seg Neutrophils # Man Lymphocytes # (Manual) D-Dimer POC ABG pH 7.462 H POC ABG pCO2 POC ABG pO2 108 H Sodium Potassium Chloride 95.6 L Carbon Dioxide BUN 53 H Creatinine 6.5 H Glucose POC Glucose Lactic Acid Calcium Phosphorus Iron TIBC Transferrin CK-MB (CK-2) CK-MB (CK-2) Rel Index Troponin T Serum Total Protein Albumin Qletn-7-Gjelgpvuy PEP Interpretation Triglycerides Cholesterol LDL Cholesterol Direct PTH Intact Urine WBC (Auto) Urine Creatinine Salicylates Acetaminophen Crossmatch See Detail 10/01/18 10/01/18 10/02/18 18:36 23:00 05:06 WBC RBC Hgb Hct Lymph % (Auto) [place] % (Auto) Lymph # [place] # Seg Neutrophils % Seg Neuts % (Manual) Lymphocytes % (Manual) Seg Neutrophils # Man Lymphocytes # (Manual) D-Dimer POC ABG pH POC ABG pCO2 POC ABG pO2 Sodium Potassium Chloride Carbon Dioxide BUN Creatinine Glucose POC Glucose 123 H 128 H 177 H Lactic Acid Calcium Phosphorus Iron TIBC Transferrin CK-MB (CK-2) CK-MB (CK-2) Rel Index Troponin T Serum Total Protein Albumin Cuuyd-6-Aofjaktjd PEP Interpretation Triglycerides Cholesterol LDL Cholesterol Direct PTH Intact Urine WBC (Auto) Urine Creatinine Salicylates Acetaminophen Crossmatch
[2018-10-02] MEDS: APRESOLINE IV PRN ×2 (15:19→20:26)
[2018-10-02] MEDS: LANTUS SUB-Q SCH (23:36)
[2018-10-03] MEDS: HumaLOG SUB-Q SCH ×4 (03:11→19:25)
[2018-10-03 04:26] LABS: Hematocrit 29.1 % (30.3-42.9); Hemoglobin 9.8 gm/dl (10.1-14.3); Mean Corpuscular HGB Conc 34 % (30-34); Mean Corpuscular Volume 85 fl (79-97); Platelet Count 297 K/mm3 (140-440); Red Blood Count 3.45 M/mm3 (3.65-5.03); Red Cell Distribution Width 14.4 % (13.2-15.2)
[2018-10-03 04:45] LABS: Calcium 9.3 mg/dL (8.4-10.2)
[2018-10-03] MEDS ORDERED: ANCEF/STERILE WATER 2 GM/20 ML 2 GM/20 ML SYRINGE IV NR (08:00)
[2018-10-03] MEDS: APRESOLINE IV PRN ×2 (08:19→16:45)
[2018-10-03] MEDS: SODIUM CHLORIDE FLUSH SYRINGE 10 ML IV PRN ×2 (08:24→16:46)
[2018-10-03] MEDS: APRESOLINE PO SCH ×3 (08:24→21:19)
--- NOTE | 2018-10-03 10:06 | Progress Note ---
Assessment and Plan Impression * ESRD--new onset --Status post right IJ Vas-Cath placement on 09/23/2018. * Acute hypoxic respiratory failure secondary to pneumonia plus /minus fluid overload * Metabolic acidosis -resolved * Hyperkalemia - resolved * Type II diabetes mellitus * Hypertension * renal mass * Proteinuria Recommendations * Hemodialysis continue MWF and prn schedule * UF as tolerated * will need outpatient hd placement * vascular for perm cath placement * Avoid nephrotoxins * Monitor fluid status and electrolytes closely * follow up MRI without contrast for renal mass Subjective Date of service: 10/03/18 Principal diagnosis: acute respiratory failure, end-stage renal disease, AMS Interval history: resting well in bed today Objective - Exam Narrative Exam: HEENT: Oral mucosa moist Neck: Supple no JVD Chest: Clear to auscultation anteriorly Posteriorly has crackles in bases CVS: Regular rate and rhythm S1 and S2 heard Abdomen: Soft nontender no suprapubic masses no organomegaly appreciable Extremity: Dry skin less than 1+ peripheral edema Musculoskeletal: No joint effusion noted in knees and ankle Dermatology: No petechial rashes Psychiatry: No evidence of any agitation and aggression noted - Vital Signs Vital signs: Vital Signs - 12hr 10/03/18 10/03/18 10/03/18 02:23 07:55 08:19 Temperature 98.0 F 98.2 F Pulse Rate 115 H 132 H 132 H Respiratory 18 20 Rate Blood Pressure 149/78 182/93 182/93 O2 Sat by Pulse 97 94 Oximetry - Lab 10/03/18 03:25 10/03/18 03:25 Most recent lab results Calcium 9.3 mg/dL (8.4-10.2) 10/03/18 03:25 Phosphorus 5.30 mg/dL (2.5-4.5) H 09/29/18 10:48 Urine Creatinine 80.7 mg/dL (0.1-20.0) H 09/23/18 16:00 Urine Sodium 66 mmol/L 09/23/18 16:00 Medications & Allergies - Medications Allergies/Adverse Reactions: Allergies codeine Adverse Reaction (Verified 09/23/18 10:09) Unknown Home Medications: Home Medications Medication Instructions Recorded Confirmed Last Taken Type ALBUTEROL NEB's [Proventil 0.083% 2.5 mg INHALATION Q6H PRN 09/25/18 09/25/18 Unknown History NEBS] Carvedilol 25 mg PO Q12H 09/25/18 09/25/18 Unknown History Clonidine 0.2 mg PO BID 09/25/18 09/25/18 Unknown History Doxazosin 2 mg PO DAILY 09/25/18 09/25/18 Unknown History Dss 100 mg PO BID 09/25/18 09/25/18 Unknown History Fluticasone [Flonase] 1 spray INNOSTRIL DAILY 09/25/18 09/25/18 Unknown History Insulin NPH/Regular [Novolin 70/30] 20 unit SQ DAILY 09/25/18 09/25/18 Unknown History Isosorbide Mononitrate 30 mg PO DAILY 09/25/18 09/25/18 Unknown History NIFEdipine [Nifedipine ER] 60 mg PO BID 09/25/18 09/25/18 Unknown History Sevelamer Carbonate 1 tab PO TID 09/25/18 09/25/18 Unknown History Simvastatin [Zocor] 1 tab PO DAILY 09/25/18 09/25/18 Unknown History Torsemide [Demadex] 0.5 tab PO DAILY 09/25/18 09/25/18 Unknown History hydrALAZINE 100 mg PO Q8H 09/25/18 09/25/18 Unknown History Active Medications: Generic Name Dose Route Start Last Admin Trade Name Freq PRN Reason Stop Dose Admin Acetaminophen 650 mg 09/22/18 04:14 09/26/18 03:56 Tylenol PO 650 mg Q4H PRN Administration Pain MILD(1-3)/Fever >100.5/MEJIA Lipase/Protease/Amylase 1 each 09/23/18 13:57 Pancrenuha Bourgeois 10,500 Unit FEEDTUBE PRN PRN For Clogged Feeding Tube Clonidine HCl 0.2 mg 09/28/18 10:00 09/28/18 12:02 Catapres-Tts Patch TD 0.2 mg Mae KAILA Administration Dextrose 50 ml 09/22/18 04:14 D50w (25gm) Syringe IV PRN PRN Hypoglycemia Enoxaparin Sodium 30 mg 09/22/18 10:00 10/02/18 10:54 Lovenox SUB-Q 30 mg QDAY KAIAL Administration Epinephrine 0.5 ml 09/25/18 12:52 10/01/18 00:13 S2 Racepinephrine 2.25% IH 0.5 ml Q4HRT PRN Administration stridor Famotidine 20 mg 09/29/18 10:00 10/02/18 10:54 Pepcid PO 20 mg DAILY [facility] Administration Haloperidol Lactate 5 mg 10/01/18 11:00 Haldol IV Q6H PRN Agitation Hydralazine HCl 10 mg 09/22/18 19:30 10/03/18 08:19 Apresoline IV 10 mg Q4HR PRN Administration SBP>160 Hydralazine HCl 50 mg 09/29/18 14:00 10/03/18 08:24 Apresoline PO Not Given TID [facility] Sodium Chloride 100 mls @ 999 mls/hr 09/29/18 09:26 Nacl 0.9% IV CAROLINE PRN Hypotension Cefazolin Sodium 2 gm in 20 mls @ 80 mls/hr 10/03/18 08:00 Ancef/Sterile Water 2 Gm/20 Ml IV 10/03/18 23:59 PREOP NR Protocol Insulin Glargine 5 units 09/28/18 22:00 10/02/18 23:36 Lantus SUB-Q Not Given QHS [facility] Insulin Human Lispro 0 unit 09/22/18 06:00 10/03/18 03:11 Humalog SUB-Q Not Given Q6HR [facility] Protocol Lorazepam 1 mg 09/23/18 10:06 09/29/18 20:32 Ativan IV 1 mg Q4H PRN Administration Agitation Ondansetron HCl 4 mg 09/30/18 22:58 Zofran IV Q8H PRN Nausea And Vomiting Senna/Docusate Sodium 2 tab 09/30/18 12:00 10/02/18 23:37 Senokot S PO Not Given BID KAILA Simple Syrup 15 ml 09/23/18 13:57 Simple Syrup FEEDTUBE PRN PRN Hypoglycemia Simple Syrup 30 ml 09/23/18 13:57 Simple Syrup FEEDTUBE PRN PRN Hypoglycemia Sodium Bicarbonate 325 mg 09/23/18 13:57 Sodium Bicarbonate FEEDTUBE PRN PRN For Clogged Feeding Tube Sodium Chloride 10 ml 09/22/18 10:00 10/02/18 10:55 Sodium Chloride Flush Syringe 10 Ml IV 10 ml BID KAILA Administration Sodium Chloride 10 ml 09/22/18 04:14 10/03/18 08:24 Sodium Chloride Flush Syringe 10 Ml IV 10 ml PRN PRN Administration LINE FLUSH
[2018-10-03] MEDS: SODIUM CHLORIDE FLUSH SYRINGE 10 ML IV SCH ×3 (10:55→21:39)
[2018-10-03] MEDS: SENOKOT S PO SCH ×2 (10:55→21:18)
[2018-10-03] MEDS: LOVENOX SUB-Q SCH (10:55)
[2018-10-03] MEDS: PEPCID PO SCH (10:55)
[2018-10-03] MEDS ORDERED: NACL 0.9% 100 ML IV PRN (12:04)
[2018-10-03] MEDS ORDERED: NACL 0.9% 0 ML IR ONE (14:17)
[2018-10-03] MEDS ORDERED: XYLOCAINE 2% INFILTRATI ONE (14:18)
--- NOTE | 2018-10-03 14:18 | Progress Note ---
Assessment and Plan Acute respiratory failure. On [place] oxygen , no distress Post extubation stridor. Resolved AMS. Delirium.Improved, resolved End-stage renal disease Renal mass HTN CAD Obesity Recommendation Continue nebs prn for chest congestion BP management Renal mass w/up, HD per nephrology and hospital medicine Continue monitoring from Pulmonary standpoint Discussed with pt in detail Subjective Date of service: 10/03/18 Principal diagnosis: acute respiratory failure, end-stage renal disease, AMS Interval history: No events overnight. Some cough. No throat discomfort.No SOB Objective Vital Signs - 12hr 10/03/18 10/03/18 10/03/18 02:23 07:55 08:19 Temperature 98.0 F 98.2 F Pulse Rate 115 H 132 H 132 H Respiratory 18 20 Rate Blood Pressure 149/78 182/93 182/93 O2 Sat by Pulse 97 94 Oximetry 10/03/18 10/03/18 10/03/18 09:00 09:30 09:45 Temperature 98.0 F Pulse Rate 113 H 107 H Respiratory 20 18 Rate Blood Pressure 194/92 149/65 O2 Sat by Pulse 94 Oximetry 10/03/18 10/03/18 10/03/18 10:00 10:15 10:30 Temperature Pulse Rate 105 H 100 H 100 H Respiratory Rate Blood Pressure 150/66 154/68 150/68 O2 Sat by Pulse Oximetry 10/03/18 10/03/18 10:35 13:51 Temperature 98.2 F 98.7 F Pulse Rate 116 H 107 H Respiratory 18 20 Rate Blood Pressure 135/68 187/86 O2 Sat by Pulse 98 Oximetry Constitutional: no acute distress, alert Eyes: non-icteric ENT: oropharynx moist Effort: normal Ascultation: Bilateral: clear, diminished breath sounds Cardiovascular: regular rate and rhythm Gastrointestinal: normoactive bowel sounds, non-distended Integumentary: normal Extremities: no cyanosis, no edema Neurologic: normal mental status, non-focal exam, pupils equal and round, CN II- XII normal CBC and BMP: 10/03/18 03:25 10/03/18 03:25 ABG, PT/INR, D-dimer: ABG POC ABG pH 7.462 (7.35-7.45) H 10/01/18 09:21 POC ABG pCO2 42.5 (35-45) 10/01/18 09:21 POC ABG pO2 108 (80-105) H 10/01/18 09:21 POC ABG HCO3 30.4 10/01/18 09:21 POC ABG Total CO2 32 10/01/18 09:21 POC ABG O2 Sat 98 10/01/18 09:21 PT/INR, D-dimer D-Dimer 4401.15 ng/mlDDU (0-234) H 09/21/18 22:56 Abnormal lab findings: Abnormal Labs 09/21/18 09/21/18 09/21/18 22:56 22:56 22:56 WBC RBC 3.05 L Hgb 9.0 L Hct 26.9 L Lymph % (Auto) 9.3 L [place] % (Auto) Lymph # 0.7 L [place] # Seg Neutrophils % 84.0 H Seg Neuts % (Manual) Lymphocytes % (Manual) Seg Neutrophils # Man Lymphocytes # (Manual) D-Dimer POC ABG pH POC ABG pCO2 POC ABG pO2 Sodium Potassium 5.2 H Chloride Carbon Dioxide 17 L BUN 53 H Creatinine 6.7 H Glucose 307 H POC Glucose Lactic Acid Calcium 8.2 L Phosphorus Iron TIBC Transferrin CK-MB (CK-2) CK-MB (CK-2) Rel Index Troponin T Serum Total Protein Albumin 3.6 L Yuuur-6-Ijqwqqfyk PEP Interpretation Triglycerides Cholesterol LDL Cholesterol Direct PTH Intact Urine WBC (Auto) Urine Creatinine Salicylates < 0.3 L Acetaminophen Crossmatch 09/21/18 09/21/18 09/21/18 22:56 22:56 22:56 WBC RBC Hgb Hct Lymph % (Auto) [place] % (Auto) Lymph # [place] # Seg Neutrophils % Seg Neuts % (Manual) Lymphocytes % (Manual) Seg Neutrophils # Man Lymphocytes # (Manual) D-Dimer 4401.15 H POC ABG pH POC ABG pCO2 POC ABG pO2 Sodium Potassium Chloride Carbon Dioxide BUN Creatinine Glucose POC Glucose Lactic Acid 3.70 H* Calcium Phosphorus Iron TIBC Transferrin CK-MB (CK-2) CK-MB (CK-2) Rel Index Troponin T Serum Total Protein Albumin Xdvzc-9-Ltoozwxyn PEP Interpretation Triglycerides Cholesterol LDL Cholesterol Direct PTH Intact Urine WBC (Auto) Urine Creatinine Salicylates Acetaminophen < 5.0 L Crossmatch 09/21/18 09/21/18 09/22/18 23:14 23:57 00:48 WBC RBC Hgb Hct Lymph % (Auto) [place] % (Auto) Lymph # [place] # Seg Neutrophils % Seg Neuts % (Manual) Lymphocytes % (Manual) Seg Neutrophils # Man Lymphocytes # (Manual) D-Dimer POC ABG pH 7.234 L 7.322 L POC ABG pCO2 POC ABG pO2 118 H 142 H Sodium Potassium Chloride Carbon Dioxide BUN Creatinine Glucose POC Glucose Lactic Acid Calcium Phosphorus Iron TIBC Transferrin CK-MB (CK-2) CK-MB (CK-2) Rel Index Troponin T 0.062 H D Serum Total Protein Albumin Ppvth-3-Qgnhfnggx PEP Interpretation Triglycerides 208 H Cholesterol 206 H LDL Cholesterol Direct 143 H PTH Intact Urine WBC (Auto) Urine Creatinine Salicylates Acetaminophen Crossmatch 09/22/18 09/22/18 09/22/18 04:50 05:03 06:43 WBC RBC Hgb Hct Lymph % (Auto) [place] % (Auto) Lymph # [place] # Seg Neutrophils % Seg Neuts % (Manual) Lymphocytes % (Manual) Seg Neutrophils # Man Lymphocytes # (Manual) D-Dimer POC ABG pH 7.556 H POC ABG pCO2 22.4 L POC ABG pO2 176 H Sodium Potassium Chloride Carbon Dioxide BUN Creatinine Glucose POC Glucose 116 H Lactic Acid Calcium Phosphorus Iron TIBC Transferrin CK-MB (CK-2) 4.1 H CK-MB (CK-2) Rel Index 4.7 H Troponin T 0.107 H* D Serum Total Protein Albumin Zjogr-3-Rzcmvjptq PEP Interpretation Triglycerides Cholesterol LDL Cholesterol Direct PTH Intact Urine WBC (Auto) Urine Creatinine Salicylates Acetaminophen Crossmatch 09/22/18 09/22/18 09/22/18 09:12 10:26 18:00 WBC RBC Hgb Hct Lymph % (Auto) [place] % (Auto) Lymph # [place] # Seg Neutrophils % Seg Neuts % (Manual) Lymphocytes % (Manual) Seg Neutrophils # Man Lymphocytes # (Manual) D-Dimer POC ABG pH POC ABG pCO2 POC ABG pO2 Sodium Potassium Chloride Carbon Dioxide BUN Creatinine 6.7 H Glucose POC Glucose 124 H Lactic Acid Calcium Phosphorus Iron TIBC Transferrin CK-MB (CK-2) CK-MB (CK-2) Rel Index Troponin T 0.074 H D Serum Total Protein Albumin Wbwkm-5-Vfnkdqxdo PEP Interpretation Triglycerides Cholesterol LDL Cholesterol Direct PTH Intact Urine WBC (Auto) Urine Creatinine Salicylates Acetaminophen Crossmatch 0209/23/18 09/23/18 03:57 04:24 04:24 WBC RBC 2.85 L Hgb 8.0 L Hct 24.4 L Lymph % (Auto) [place] % (Auto) 12.6 H Lymph # [place] # 1.1 H Seg Neutrophils % Seg Neuts % (Manual) Lymphocytes % (Manual) Seg Neutrophils # Man Lymphocytes # (Manual) D-Dimer POC ABG pH POC ABG pCO2 27.2 L POC ABG pO2 113 H Sodium Potassium Chloride 113.4 H Carbon Dioxide 19 L BUN 54 H Creatinine 7.0 H Glucose POC Glucose Lactic Acid Calcium 8.3 L Phosphorus Iron TIBC Transferrin CK-MB (CK-2) CK-MB (CK-2) Rel Index Troponin T Serum Total Protein Albumin Nhwil-1-Ckjetsusm PEP Interpretation Triglycerides Cholesterol LDL Cholesterol Direct PTH Intact Urine WBC (Auto) Urine Creatinine Salicylates Acetaminophen Crossmatch 09/23/18 09/23/18 09/23/18 05:32 16:00 16:00 WBC RBC Hgb Hct Lymph % (Auto) [place] % (Auto) Lymph # [place] # Seg Neutrophils % Seg Neuts % (Manual) Lymphocytes % (Manual) Seg Neutrophils # Man Lymphocytes # (Manual) D-Dimer POC ABG pH POC ABG pCO2 POC ABG pO2 Sodium Potassium Chloride Carbon Dioxide BUN Creatinine Glucose POC Glucose Lactic Acid Calcium Phosphorus Iron TIBC Transferrin CK-MB (CK-2) CK-MB (CK-2) Rel Index Troponin T Serum Total Protein 5.2 L Albumin 2.5 L Fwinq-6-Obnbfmgee 0.4 H PEP Interpretation see below H Triglycerides Cholesterol LDL Cholesterol Direct PTH Intact Urine WBC (Auto) 13.0 H Urine Creatinine 80.7 H Salicylates Acetaminophen Crossmatch 09/23/18 09/23/18 09/24/18 18:47 23:53 04:28 WBC RBC 2.66 L Hgb 7.6 L Hct 22.5 L Lymph % (Auto) [place] % (Auto) Lymph # [place] # Seg Neutrophils % Seg Neuts % (Manual) Lymphocytes % (Manual) Seg Neutrophils # Man Lymphocytes # (Manual) D-Dimer POC ABG pH POC ABG pCO2 POC ABG pO2 Sodium Potassium Chloride Carbon Dioxide BUN Creatinine Glucose POC Glucose 115 H 145 H Lactic Acid Calcium Phosphorus Iron TIBC Transferrin CK-MB (CK-2) CK-MB (CK-2) Rel Index Troponin T Serum Total Protein Albumin Qnsqn-4-Qjmnhpfvf PEP Interpretation Triglycerides Cholesterol LDL Cholesterol Direct PTH Intact Urine WBC (Auto) Urine Creatinine Salicylates Acetaminophen Crossmatch 09/24/18 09/24/18 09/24/18 04:28 04:56 05:33 WBC RBC Hgb Hct Lymph % (Auto) [place] % (Auto) Lymph # [place] # Seg Neutrophils % Seg Neuts % (Manual) Lymphocytes % (Manual) Seg Neutrophils # Man Lymphocytes # (Manual) D-Dimer POC ABG pH 7.551 H POC ABG pCO2 32.0 L POC ABG pO2 133 H Sodium Potassium Chloride Carbon Dioxide BUN 27 H Creatinine 4.8 H Glucose 129 H POC Glucose 127 H Lactic Acid Calcium 8.0 L Phosphorus Iron TIBC Transferrin CK-MB (CK-2) CK-MB (CK-2) Rel Index Troponin T Serum Total Protein Albumin Mrjum-9-Ljegigkdg PEP Interpretation Triglycerides Cholesterol LDL Cholesterol Direct PTH Intact Urine WBC (Auto) Urine Creatinine Salicylates Acetaminophen Crossmatch 09/24/18 09/24/18 09/24/18 12:39 19:57 23:53 WBC RBC Hgb Hct Lymph % (Auto) [place] % (Auto) Lymph # [place] # Seg Neutrophils % Seg Neuts % (Manual) Lymphocytes % (Manual) Seg Neutrophils # Man Lymphocytes # (Manual) D-Dimer POC ABG pH POC ABG pCO2 POC ABG pO2 Sodium Potassium Chloride Carbon Dioxide BUN Creatinine Glucose POC Glucose 171 H 209 H 158 H Lactic Acid Calcium Phosphorus Iron TIBC Transferrin CK-MB (CK-2) CK-MB (CK-2) Rel Index Troponin T Serum Total Protein Albumin Nscuo-3-Lolxqwrsq PEP Interpretation Triglycerides Cholesterol LDL Cholesterol Direct PTH Intact Urine WBC (Auto) Urine Creatinine Salicylates Acetaminophen Crossmatch 09/25/18 09/25/18 09/25/18 04:06 04:06 05:16 WBC RBC 2.73 L Hgb 7.9 L Hct 23.4 L Lymph % (Auto) [place] % (Auto) Lymph # [place] # Seg Neutrophils % Seg Neuts % (Manual) Lymphocytes % (Manual) Seg Neutrophils # Man Lymphocytes # (Manual) D-Dimer POC ABG pH 7.477 H POC ABG pCO2 POC ABG pO2 122 H Sodium Potassium Chloride 97.2 L Carbon Dioxide BUN Creatinine 3.6 H Glucose 118 H POC Glucose Lactic Acid Calcium 8.2 L Phosphorus Iron TIBC Transferrin CK-MB (CK-2) CK-MB (CK-2) Rel Index Troponin T Serum Total Protein Albumin Aprwg-9-Kemmkzqdo PEP Interpretation Triglycerides Cholesterol LDL Cholesterol Direct PTH Intact Urine WBC (Auto) Urine Creatinine Salicylates Acetaminophen Crossmatch 09/25/18 09/25/18 09/25/18 05:55 12:29 16:21 WBC RBC Hgb Hct Lymph % (Auto) [place] % (Auto) Lymph # [place] # Seg Neutrophils % Seg Neuts % (Manual) Lymphocytes % (Manual) Seg Neutrophils # Man Lymphocytes # (Manual) D-Dimer POC ABG pH 7.216 L POC ABG pCO2 79.9 H POC ABG pO2 Sodium Potassium Chloride Carbon Dioxide BUN Creatinine Glucose POC Glucose 144 H 128 H Lactic Acid Calcium Phosphorus Iron TIBC Transferrin CK-MB (CK-2) CK-MB (CK-2) Rel Index Troponin T Serum Total Protein Albumin Xefji-0-Uscmdupmz PEP Interpretation Triglycerides Cholesterol LDL Cholesterol Direct PTH Intact Urine WBC (Auto) Urine Creatinine Salicylates Acetaminophen Crossmatch 09/25/18 09/25/18 09/25/18 18:27 18:44 23:56 WBC RBC Hgb Hct Lymph % (Auto) [place] % (Auto) Lymph # [place] # Seg Neutrophils % Seg Neuts % (Manual) Lymphocytes % (Manual) Seg Neutrophils # Man Lymphocytes # (Manual) D-Dimer POC ABG pH POC ABG pCO2 53.2 H POC ABG pO2 78 L Sodium Potassium Chloride Carbon Dioxide BUN Creatinine Glucose POC Glucose 264 H 170 H Lactic Acid Calcium Phosphorus Iron TIBC Transferrin CK-MB (CK-2) CK-MB (CK-2) Rel Index Troponin T Serum Total Protein Albumin Nucwm-4-Jvsesbzrz PEP Interpretation Triglycerides Cholesterol LDL Cholesterol Direct PTH Intact Urine WBC (Auto) Urine Creatinine Salicylates Acetaminophen Crossmatch 09/26/18 09/26/18 09/26/18 03:46 04:51 05:04 WBC RBC Hgb Hct Lymph % (Auto) [place] % (Auto) Lymph # [place] # Seg Neutrophils % Seg Neuts % (Manual) Lymphocytes % (Manual) Seg Neutrophils # Man Lymphocytes # (Manual) D-Dimer POC ABG pH 7.584 H POC ABG pCO2 30.9 L POC ABG pO2 151 H Sodium Potassium Chloride 95.5 L Carbon Dioxide BUN 34 H Creatinine 5.4 H Glucose 185 H POC Glucose 186 H Lactic Acid Calcium Phosphorus Iron TIBC Transferrin CK-MB (CK-2) CK-MB (CK-2) Rel Index Troponin T Serum Total Protein Albumin Qfypn-1-Whkdgiubp PEP Interpretation Triglycerides Cholesterol LDL Cholesterol Direct PTH Intact Urine WBC (Auto) Urine Creatinine Salicylates Acetaminophen Crossmatch 09/26/18 09/26/18 09/26/18 06:23 12:41 17:55 WBC RBC Hgb Hct Lymph % (Auto) [place] % (Auto) Lymph # [place] # Seg Neutrophils % Seg Neuts % (Manual) Lymphocytes % (Manual) Seg Neutrophils # Man Lymphocytes # (Manual) D-Dimer POC ABG pH 7.330 L POC ABG pCO2 49.9 H POC ABG pO2 Sodium Potassium Chloride Carbon Dioxide BUN Creatinine Glucose POC Glucose 182 H 171 H Lactic Acid Calcium Phosphorus Iron TIBC Transferrin CK-MB (CK-2) CK-MB (CK-2) Rel Index Troponin T Serum Total Protein Albumin Gytir-9-Rxbwwfdtg PEP Interpretation Triglycerides Cholesterol LDL Cholesterol Direct PTH Intact Urine WBC (Auto) Urine Creatinine Salicylates Acetaminophen Crossmatch 09/27/18 09/27/18 09/27/18 00:06 05:11 05:36 WBC RBC Hgb Hct Lymph % (Auto) [place] % (Auto) Lymph # [place] # Seg Neutrophils % Seg Neuts % (Manual) Lymphocytes % (Manual) Seg Neutrophils # Man Lymphocytes # (Manual) D-Dimer POC ABG pH POC ABG pCO2 POC ABG pO2 136 H Sodium Potassium Chloride Carbon Dioxide BUN Creatinine Glucose POC Glucose 170 H 115 H Lactic Acid Calcium Phosphorus Iron TIBC Transferrin CK-MB (CK-2) CK-MB (CK-2) Rel Index Troponin T Serum Total Protein Albumin Elufj-7-Azrnnodns PEP Interpretation Triglycerides Cholesterol LDL Cholesterol Direct PTH Intact Urine WBC (Auto) Urine Creatinine Salicylates Acetaminophen Crossmatch 09/27/18 09/27/18 09/27/18 06:05 11:51 18:17 WBC RBC Hgb Hct Lymph % (Auto) [place] % (Auto) Lymph # [place] # Seg Neutrophils % Seg Neuts % (Manual) Lymphocytes % (Manual) Seg Neutrophils # Man Lymphocytes # (Manual) D-Dimer POC ABG pH POC ABG pCO2 POC ABG pO2 Sodium Potassium Chloride 95.0 L Carbon Dioxide BUN 39 H Creatinine 5.1 H Glucose 145 H POC Glucose 181 H 214 H Lactic Acid Calcium Phosphorus Iron TIBC Transferrin CK-MB (CK-2) CK-MB (CK-2) Rel Index Troponin T Serum Total Protein Albumin Aygpn-9-Raezhykqt PEP Interpretation Triglycerides Cholesterol LDL Cholesterol Direct PTH Intact Urine WBC (Auto) Urine Creatinine Salicylates Acetaminophen Crossmatch 09/27/18 09/28/18 09/28/18 23:28 04:39 04:44 WBC RBC Hgb Hct Lymph % (Auto) [place] % (Auto) Lymph # [place] # Seg Neutrophils % Seg Neuts % (Manual) Lymphocytes % (Manual) Seg Neutrophils # Man Lymphocytes # (Manual) D-Dimer POC ABG pH POC ABG pCO2 POC ABG pO2 151 H Sodium 134 L Potassium Chloride 95.2 L Carbon Dioxide BUN 61 H Creatinine 7.2 H Glucose 165 H POC Glucose 127 H Lactic Acid Calcium 8.0 L Phosphorus Iron TIBC Transferrin CK-MB (CK-2) CK-MB (CK-2) Rel Index Troponin T Serum Total Protein Albumin Jrtlz-3-Hytuukxtn PEP Interpretation Triglycerides Cholesterol LDL Cholesterol Direct PTH Intact Urine WBC (Auto) Urine Creatinine Salicylates Acetaminophen Crossmatch 09/28/18 09/28/18 09/28/18 05:47 11:36 17:51 WBC RBC Hgb Hct Lymph % (Auto) [place] % (Auto) Lymph # [place] # Seg Neutrophils % Seg Neuts % (Manual) Lymphocytes % (Manual) Seg Neutrophils # Man Lymphocytes # (Manual) D-Dimer POC ABG pH POC ABG pCO2 POC ABG pO2 Sodium Potassium Chloride Carbon Dioxide BUN Creatinine Glucose POC Glucose 159 H 240 H 268 H Lactic Acid Calcium Phosphorus Iron TIBC Transferrin CK-MB (CK-2) CK-MB (CK-2) Rel Index Troponin T Serum Total Protein Albumin Owprh-0-Aiyjbwqmo PEP Interpretation Triglycerides Cholesterol LDL Cholesterol Direct PTH Intact Urine WBC (Auto) Urine Creatinine Salicylates Acetaminophen Crossmatch 09/28/18 09/29/18 09/29/18 23:24 05:20 09:45 WBC RBC Hgb Hct Lymph % (Auto) [place] % (Auto) Lymph # [place] # Seg Neutrophils % Seg Neuts % (Manual) Lymphocytes % (Manual) Seg Neutrophils # Man Lymphocytes # (Manual) D-Dimer POC ABG pH POC ABG pCO2 POC ABG pO2 56 L Sodium Potassium Chloride Carbon Dioxide BUN Creatinine Glucose POC Glucose 194 H 127 H Lactic Acid Calcium Phosphorus Iron TIBC Transferrin CK-MB (CK-2) CK-MB (CK-2) Rel Index Troponin T Serum Total Protein Albumin Xgzbt-3-Xouetaxer PEP Interpretation Triglycerides Cholesterol LDL Cholesterol Direct PTH Intact Urine WBC (Auto) Urine Creatinine Salicylates Acetaminophen Crossmatch 09/29/18 09/29/18 09/29/18 09:54 10:48 10:48 WBC 14.5 H RBC 2.67 L Hgb 7.4 L Hct 22.6 L Lymph % (Auto) [place] % (Auto) Lymph # [place] # Seg Neutrophils % Seg Neuts % (Manual) 90.0 H Lymphocytes % (Manual) 6.0 L Seg Neutrophils # Man 13.1 H Lymphocytes # (Manual) 0.9 L D-Dimer POC ABG pH POC ABG pCO2 POC ABG pO2 72 L Sodium Potassium Chloride Carbon Dioxide BUN Creatinine Glucose POC Glucose Lactic Acid Calcium Phosphorus 5.30 H Iron 15 L TIBC 146 L Transferrin 109 L CK-MB (CK-2) CK-MB (CK-2) Rel Index Troponin T Serum Total Protein Albumin Tkbun-2-Mpjxfhrny PEP Interpretation Triglycerides Cholesterol LDL Cholesterol Direct PTH Intact Urine WBC (Auto) Urine Creatinine Salicylates Acetaminophen Crossmatch 09/29/18 09/29/18 09/29/18 10:48 12:24 18:25 WBC RBC Hgb Hct Lymph % (Auto) [place] % (Auto) Lymph # [place] # Seg Neutrophils % Seg Neuts % (Manual) Lymphocytes % (Manual) Seg Neutrophils # Man Lymphocytes # (Manual) D-Dimer POC ABG pH POC ABG pCO2 POC ABG pO2 Sodium Potassium Chloride Carbon Dioxide BUN Creatinine Glucose POC Glucose 260 H 203 H Lactic Acid Calcium Phosphorus Iron TIBC Transferrin CK-MB (CK-2) CK-MB (CK-2) Rel Index Troponin T Serum Total Protein Albumin Ssdji-2-Wkafnrmbn PEP Interpretation Triglycerides Cholesterol LDL Cholesterol Direct PTH Intact 417.9 H Urine WBC (Auto) Urine Creatinine Salicylates Acetaminophen Crossmatch 09/30/18 09/30/18 09/30/18 00:14 05:12 12:06 WBC RBC Hgb Hct Lymph % (Auto) [place] % (Auto) Lymph # [place] # Seg Neutrophils % Seg Neuts % (Manual) Lymphocytes % (Manual) Seg Neutrophils # Man Lymphocytes # (Manual) D-Dimer POC ABG pH POC ABG pCO2 POC ABG pO2 Sodium Potassium Chloride Carbon Dioxide BUN Creatinine Glucose POC Glucose 260 H 136 H 193 H Lactic Acid Calcium Phosphorus Iron TIBC Transferrin CK-MB (CK-2) CK-MB (CK-2) Rel Index Troponin T Serum Total Protein Albumin Aqago-4-Kbqmscaux PEP Interpretation Triglycerides Cholesterol LDL Cholesterol Direct PTH Intact Urine WBC (Auto) Urine Creatinine Salicylates Acetaminophen Crossmatch 09/30/18 09/30/18 10/01/18 17:23 23:29 05:48 WBC 16.4 H RBC 2.55 L Hgb 7.1 L Hct 21.9 L Lymph % (Auto) [place] % (Auto) Lymph # [place] # Seg Neutrophils % Seg Neuts % (Manual) Lymphocytes % (Manual) Seg Neutrophils # Man Lymphocytes # (Manual) D-Dimer POC ABG pH POC ABG pCO2 POC ABG pO2 Sodium Potassium Chloride Carbon Dioxide BUN Creatinine Glucose POC Glucose 119 H 159 H Lactic Acid Calcium Phosphorus Iron TIBC Transferrin CK-MB (CK-2) CK-MB (CK-2) Rel Index Troponin T Serum Total Protein Albumin Afmfp-8-Bbdwkzctt PEP Interpretation Triglycerides Cholesterol LDL Cholesterol Direct PTH Intact Urine WBC (Auto) Urine Creatinine Salicylates Acetaminophen Crossmatch 10/01/18 10/01/18 10/01/18 05:48 09:21 10:47 WBC RBC Hgb Hct Lymph % (Auto) [place] % (Auto) Lymph # [place] # Seg Neutrophils % Seg Neuts % (Manual) Lymphocytes % (Manual) Seg Neutrophils # Man Lymphocytes # (Manual) D-Dimer POC ABG pH 7.462 H POC ABG pCO2 POC ABG pO2 108 H Sodium Potassium Chloride 95.6 L Carbon Dioxide BUN 53 H Creatinine 6.5 H Glucose POC Glucose Lactic Acid Calcium Phosphorus Iron TIBC Transferrin CK-MB (CK-2) CK-MB (CK-2) Rel Index Troponin T Serum Total Protein Albumin Gkbty-1-Xclasupbj PEP Interpretation Triglycerides Cholesterol LDL Cholesterol Direct PTH Intact Urine WBC (Auto) Urine Creatinine Salicylates Acetaminophen Crossmatch See Detail 10/01/18 10/01/18 10/02/18 18:36 23:00 05:06 WBC RBC Hgb Hct Lymph % (Auto) [place] % (Auto) Lymph # [place] # Seg Neutrophils % Seg Neuts % (Manual) Lymphocytes % (Manual) Seg Neutrophils # Man Lymphocytes # (Manual) D-Dimer POC ABG pH POC ABG pCO2 POC ABG pO2 Sodium Potassium Chloride Carbon Dioxide BUN Creatinine Glucose POC Glucose 123 H 128 H 177 H Lactic Acid Calcium Phosphorus Iron TIBC Transferrin CK-MB (CK-2) CK-MB (CK-2) Rel Index Troponin T Serum Total Protein Albumin Bymak-0-Yqsmxefvz PEP Interpretation Triglycerides Cholesterol LDL Cholesterol Direct PTH Intact Urine WBC (Auto) Urine Creatinine Salicylates Acetaminophen Crossmatch 10/02/18 10/02/18 10/02/18 12:18 17:48 23:17 WBC RBC Hgb Hct Lymph % (Auto) [place] % (Auto) Lymph # [place] # Seg Neutrophils % Seg Neuts % (Manual) Lymphocytes % (Manual) Seg Neutrophils # Man Lymphocytes # (Manual) D-Dimer POC ABG pH POC ABG pCO2 POC ABG pO2 Sodium Potassium Chloride Carbon Dioxide BUN Creatinine Glucose POC Glucose 145 H 173 H 106 H Lactic Acid Calcium Phosphorus Iron TIBC Transferrin CK-MB (CK-2) CK-MB (CK-2) Rel Index Troponin T Serum Total Protein Albumin Glmfy-9-Fhwyzytab PEP Interpretation Triglycerides Cholesterol LDL Cholesterol Direct PTH Intact Urine WBC (Auto) Urine Creatinine Salicylates Acetaminophen Crossmatch 10/03/18 10/03/18 10/03/18 03:25 03:25 07:10 WBC RBC 3.45 L Hgb 9.8 L Hct 29.1 L D Lymph % (Auto) [place] % (Auto) Lymph # [place] # Seg Neutrophils % Seg Neuts % (Manual) Lymphocytes % (Manual) Seg Neutrophils # Man Lymphocytes # (Manual) D-Dimer POC ABG pH POC ABG pCO2 POC ABG pO2 Sodium Potassium Chloride 94.4 L Carbon Dioxide BUN 39 H Creatinine 6.0 H Glucose 130 H POC Glucose 141 H Lactic Acid Calcium Phosphorus Iron TIBC Transferrin CK-MB (CK-2) CK-MB (CK-2) Rel Index Troponin T Serum Total Protein Albumin Yaydz-4-Ueofsmqnl PEP Interpretation Triglycerides Cholesterol LDL Cholesterol Direct PTH Intact Urine WBC (Auto) Urine Creatinine Salicylates Acetaminophen Crossmatch 10/03/18 12:16 WBC RBC Hgb Hct Lymph % (Auto) [place] % (Auto) Lymph # [place] # Seg Neutrophils % Seg Neuts % (Manual) Lymphocytes % (Manual) Seg Neutrophils # Man Lymphocytes # (Manual) D-Dimer POC ABG pH POC ABG pCO2 POC ABG pO2 Sodium Potassium Chloride Carbon Dioxide BUN Creatinine Glucose POC Glucose 146 H Lactic Acid Calcium Phosphorus Iron TIBC Transferrin CK-MB (CK-2) CK-MB (CK-2) Rel Index Troponin T Serum Total Protein Albumin Ijybz-0-Fbevywayl PEP Interpretation Triglycerides Cholesterol LDL Cholesterol Direct PTH Intact Urine WBC (Auto) Urine Creatinine Salicylates Acetaminophen Crossmatch
[2018-10-03] MEDS ORDERED: ANCEF/STERILE WATER 2 GM/20 ML 2 GM/20 ML SYRINGE IV ONE (14:20)
[2018-10-03] MEDS ORDERED: NORMODYNE IV ONE (14:20)
[2018-10-03] MEDS ORDERED: NACL 0.9% 250ML 250 ML ONE (14:20)
[2018-10-03] MEDS ORDERED: HEPARIN/NS 5000 UNIT/500ML(CATH LAB) 500 ML IR ONE (15:04)
[2018-10-03] MEDS: VERSED ONE ×2 (15:05→15:10)
[2018-10-03] MEDS: SUBLIMAZE ONE ×2 (15:05→15:10)
[2018-10-03] MEDS ORDERED: SUBLIMAZE ONE (15:14)
[2018-10-03] MEDS: HEPARIN 10,000 UNITS/10 ML ONE ×4 (15:14→15:21)
[2018-10-03] MEDS ORDERED: VERSED ONE (15:14)
--- NOTE | 2018-10-03 15:41 | Operative Report ---
Operative Report Operative Report: EXAM: 1. Fluoroscopic-guided conversion of a right internal jugular non-tunneled non- cuffed hemodialysis catheter to a tunneled cuffed hemodialysis catheter. DATE: 10/03/18 INDICATION: End-stage renal disease requiring hemodialysis access. MEDICATIONS: Please see nursing report for full details. DEVICES: 23 cm tip to cuff dual lumen hemodialysis catheter, reverse tunneled, palindrome WELDER HELPER: YOHANNES ROSARIO MD CONTRAST: None PROCEDURE: The risks, benefits, and alternatives were discussed and informed consent was obtained. The patient was transported to the angiography suite in satisfactory/stable condition and was transported onto the angiography table. The patient was prepped and draped in a sterile fashion. The existing vascath was prepped and draped in a sterile fashion. Suture was cut. 0.035 inch wire was advanced through the Vas-Cath into the IVC. Vas-Cath was removed. The wire was cleaned with ChloraPrep. Over the 0.035 inch wire, serial dilatation was performed with ultimate placement of a peel-away sheath. Reverse tunneled PermCath was inserted to the peel-away sheath and positioned in the right atrium. Peel-away sheath removed. A suitable exit site was identified on the patient's chest inferior and lateral to the venotomy. The site was anesthetized with local anesthetic and the track was anesthetized. Dermatotomy was made. Reverse tunneler was then tunneled from dermatotomy to the venotomy site/catheter. The PermCath was attached to the tunneling device and reverse tunneled between the dermatotomy to the venotomy. The catheter was reassembled. 4-0 Vicryl suture was used to close the venotomy and Dermabond was then applied. 2-0 Ethilon suture was used to secure the catheter at the dermatotomy. The catheter was charged with heparin 1000 units/mL space. Sterile dressing and biopatch applied. The patient was transferred from the angiography suite back to the floor in stable condition. FINDINGS: 1. Excellent flow was obtained through the dialysis catheter with 20 mL syringes. 2. The catheter tip is in the right atrium. IMPRESSION: 1. Fluoroscopic-guided conversion of a right internal jugular non-tunneled non- cuffed hemodialysis catheter to a tunneled cuffed hemodialysis catheter.
--- NOTE | 2018-10-03 16:21 | Progress Note ---
Assessment and Plan Assessment and plan: A/P AMS, resolved, monitor closely ESRD new on HD renal on board oupt HD set up DM II Continue meds Acute Physical debility PT eval if not already done HTN continue meds Acute Hypoxic resp failure 2/2 Volume overlaod s/p extubation pulm on board Suspect Aspiration continue IV abx aspiration precautions at all times further pt mgt per hospital course Disposition Plan: per hospital course Total Time Spent with Patient (Minutes): 25 mins History Interval history: History of present illness on admission: 68 year old woman history of CHF, hypertension, diabetes, chronic kidney disease was brought to the emergency room for shortness of breath. The history is per the son Roshan, he stated he was not at the scene, [facility]. Patient was intubated in the emergency room, she is sedated, review of system is unobtainable. Nurse reported that the patient had copious amount of vomiting in the ER Brief Hospital course: was admitted to the hospital medicine service to ICU, seen in consultation by pulerwin, renal. Subsequently stated on HD . Pt has been extubated and is maintaining her O2 on 2 liters. Scheduled for perm-a-cath placement today. Subjective: Pt seen and exam by bedside, was sleeping but arrousable, remains tired,. Able to answer questions appropriately. No family by bedside. Inputs and reccs of the specialists greatly appreciated. Hospitalist Physical - Constitutional Vitals: Temp Pulse Resp BP Pulse Ox 98.7 F 107 H 20 187/86 98 10/03/18 13:51 10/03/18 13:51 10/03/18 13:51 10/03/18 13:51 10/03/18 13:51 General appearance: Present: no acute distress, other (ill appearing) - EENT Eyes: Present: PERRL, EOM intact ENT: hearing intact, clear oral mucosa - Neck Neck: Present: supple, normal ROM - Respiratory Respiratory: bilateral: diminished, rales, negative: rhonchi, wheezing, other - Cardiovascular Rhythm: regular Heart Sounds: Present: S1 & S2 - Extremities Extremities: pulses intact, normal temperature, normal color, Full ROM - Abdominal General gastrointestinal: soft, non-tender, non-distended, normal bowel sounds - Integumentary Integumentary: Present: clear, warm, dry - Psychiatric Psychiatric: appropriate mood/affect, intact judgment & insight - Neurologic Neurologic: CNII-XII intact, moves all extremities, other (sleeping but arrousable) - Allied Health Allied health notes reviewed: nursing, RT, social work, case management Results - Labs CBC & Chem 7: 10/03/18 03:25 10/03/18 03:25 Labs: Laboratory Last Values WBC 10.5 K/mm3 (4.5-11.0) 10/03/18 03:25 RBC 3.45 M/mm3 (3.65-5.03) L 10/03/18 03:25 Hgb 9.8 gm/dl (10.1-14.3) L 10/03/18 03:25 Hct 29.1 % (30.3-42.9) L D 10/03/18 03:25 MCV 85 fl (79-97) 10/03/18 03:25 MCH 29 pg (28-32) 10/03/18 03:25 MCHC 34 % (30-34) 10/03/18 03:25 RDW 14.4 % (13.2-15.2) 10/03/18 03:25 Plt Count 297 K/mm3 (140-440) 10/03/18 03:25 Lymph % (Auto) 16.7 % (13.4-35.0) 09/23/18 04:24 Carbon % (Auto) 12.6 % (0.0-7.3) H 09/23/18 04:24 Eos % (Auto) 3.5 % (0.0-4.3) 09/23/18 04:24 Baso % (Auto) 1.5 % (0.0-1.8) 09/23/18 04:24 Lymph # 1.4 K/mm3 (1.2-5.4) 09/23/18 04:24 Carbon # 1.1 K/mm3 (0.0-0.8) H 09/23/18 04:24 Eos # 0.3 K/mm3 (0.0-0.4) 09/23/18 04:24 Baso # 0.1 K/mm3 (0.0-0.1) 09/23/18 04:24 Add Manual Diff Complete 09/29/18 10:48 Total Counted 100 09/29/18 10:48 Seg Neutrophils % 65.7 % (40.0-70.0) 09/23/18 04:24 Seg Neuts % (Manual) 90.0 % (40.0-70.0) H 09/29/18 10:48 Band Neutrophils % 0 % 09/29/18 10:48 Lymphocytes % (Manual) 6.0 % (13.4-35.0) L 09/29/18 10:48 Reactive Lymphs % (Man) 0 % 09/29/18 10:48 Monocytes % (Manual) 0 % (0.0-7.3) 09/29/18 10:48 Eosinophils % (Manual) 1.0 % (0.0-4.3) 09/29/18 10:48 Basophils % (Manual) 1.0 % (0.0-1.8) 09/29/18 10:48 Metamyelocytes % 2.0 % 09/29/18 10:48 Myelocytes % 0 % 09/29/18 10:48 Promyelocytes % 0 % 09/29/18 10:48 Blast Cells % 0 % 09/29/18 10:48 Nucleated RBC % Not Reportable 09/29/18 10:48 Seg Neutrophils # 5.5 K/mm3 (1.8-7.7) 09/23/18 04:24 Seg Neutrophils # Man 13.1 K/mm3 (1.8-7.7) H 09/29/18 10:48 Band Neutrophils # 0.0 K/mm3 09/29/18 10:48 Lymphocytes # (Manual) 0.9 K/mm3 (1.2-5.4) L 09/29/18 10:48 Abs React Lymphs (Man) 0.0 K/mm3 09/29/18 10:48 Monocytes # (Manual) 0.0 K/mm3 (0.0-0.8) 09/29/18 10:48 Eosinophils # (Manual) 0.1 K/mm3 (0.0-0.4) 09/29/18 10:48 Basophils # (Manual) 0.1 K/mm3 (0.0-0.1) 09/29/18 10:48 Metamyelocytes # 0.3 K/mm3 09/29/18 10:48 Myelocytes # 0.0 K/mm3 09/29/18 10:48 Promyelocytes # 0.0 K/mm3 09/29/18 10:48 Blast Cells # 0.0 K/mm3 09/29/18 10:48 WBC Morphology Not Reportable 09/29/18 10:48 Hypersegmented Neuts Not Reportable 09/29/18 10:48 Hyposegmented Neuts Not Reportable 09/29/18 10:48 Hypogranular Neuts Not Reportable 09/29/18 10:48 Smudge Cells Not Reportable 09/29/18 10:48 Toxic Granulation Not Reportable 09/29/18 10:48 Toxic Vacuolation Not Reportable 09/29/18 10:48 Dohle Bodies Not Reportable 09/29/18 10:48 Pelger-Huet Anomaly Not Reportable 09/29/18 10:48 Kevin Rods Not Reportable 09/29/18 10:48 Platelet Estimate Consistent w auto 09/29/18 10:48 Clumped Platelets Not Reportable 09/29/18 10:48 Plt Clumps, EDTA Not Reportable 09/29/18 10:48 Large Platelets Not Reportable 09/29/18 10:48 Giant Platelets Not Reportable 09/29/18 10:48 Platelet Satelliting Not Reportable 09/29/18 10:48 Plt Morphology Comment Not Reportable 09/29/18 10:48 RBC Morphology Not Reportable 09/29/18 10:48 Dimorphic RBCs Not Reportable 09/29/18 10:48 Polychromasia Not Reportable 09/29/18 10:48 Hypochromasia Not Reportable 09/29/18 10:48 Poikilocytosis Not Reportable 09/29/18 10:48 Anisocytosis 1+ 09/29/18 10:48 Microcytosis Not Reportable 09/29/18 10:48 Macrocytosis Not Reportable 09/29/18 10:48 Spherocytes Not Reportable 09/29/18 10:48 Pappenheimer Bodies Not Reportable 09/29/18 10:48 Sickle Cells Not Reportable 09/29/18 10:48 Target Cells Not Reportable 09/29/18 10:48 Tear Drop Cells Not Reportable 09/29/18 10:48 Ovalocytes Not Reportable 09/29/18 10:48 Helmet Cells Not Reportable 09/29/18 10:48 [place] Bodies Not Reportable 09/29/18 10:48 [place] Rings Not Reportable 09/29/18 10:48 [place] Cells Not Reportable 09/29/18 10:48 Bite Cells Not Reportable 09/29/18 10:48 Crenated Cell Not Reportable 09/29/18 10:48 Elliptocytes Not Reportable 09/29/18 10:48 Acanthocytes (Spur) Not Reportable 09/29/18 10:48 Rouleaux Not Reportable 09/29/18 10:48 Hemoglobin C Crystals Not Reportable 09/29/18 10:48 Schistocytes Not Reportable 09/29/18 10:48 Malaria parasites Not Reportable 09/29/18 10:48 Sal Bodies Not Reportable 09/29/18 10:48 Hem Pathologist Commnt No 09/29/18 10:48 D-Dimer 4401.15 ng/mlDDU (0-234) H 09/21/18 22:56 POC ABG pH 7.462 (7.35-7.45) H 10/01/18 09:21 POC ABG pCO2 42.5 (35-45) 10/01/18 09:21 POC ABG pO2 108 (80-105) H 10/01/18 09:21 POC ABG HCO3 30.4 10/01/18 09:21 POC ABG Total CO2 32 10/01/18 09:21 POC ABG O2 Sat 98 10/01/18 09:21 POC ABG Base Excess 7 10/01/18 09:21 FiO2 30 % 10/01/18 09:21 Sodium 138 mmol/L (137-145) 10/03/18 03:25 Potassium 3.8 mmol/L (3.6-5.0) 10/03/18 03:25 Chloride 94.4 mmol/L (98-107) L 10/03/18 03:25 Carbon Dioxide 26 mmol/L (22-30) 10/03/18 03:25 Anion Gap 21 mmol/L 10/03/18 03:25 BUN 39 mg/dL (7-17) H 10/03/18 03:25 Creatinine 6.0 mg/dL (0.7-1.2) H 10/03/18 03:25 Estimated GFR 8 ml/min 10/03/18 03:25 BUN/Creatinine Ratio 7 % 10/03/18 03:25 Glucose 130 mg/dL (65-100) H 10/03/18 03:25 POC Glucose 146 (70-105) H 10/03/18 12:16 Lactic Acid 1.70 mmol/L (0.7-2.0) 09/22/18 04:50 Calcium 9.3 mg/dL (8.4-10.2) 10/03/18 03:25 Phosphorus 5.30 mg/dL (2.5-4.5) H 09/29/18 10:48 Iron 15 ug/dL (37-170) L 09/29/18 10:48 TIBC 146 mcg/dL (250-450) L 09/29/18 10:48 % Saturation 10.27 % 09/29/18 10:48 Transferrin 109 mg/dl (192-382) L 09/29/18 10:48 Total Bilirubin 0.20 mg/dL (0.1-1.2) 09/21/18 22:56 AST 17 units/L (5-40) 09/21/18 22:56 ALT 9 units/L (7-56) 09/21/18 22:56 Alkaline Phosphatase 86 units/L (35-129) 09/21/18 22:56 Ammonia 57.0 umol/L (25-60) 09/21/18 22:56 Total Creatine Kinase 81 units/L (30-135) 09/22/18 10:26 CK-MB (CK-2) 3.1 ng/mL (0.0-4.0) 09/22/18 10:26 CK-MB (CK-2) Rel Index 3.8 (0-4) 09/22/18 10:26 Troponin T 0.074 ng/mL (0.00-0.029) H D 09/22/18 10:26 Serum Total Protein 5.2 g/dL (6.1-8.1) L 09/23/18 05:32 Total Protein 6.5 g/dL (6.3-8.2) 09/21/18 22:56 Albumin 2.5 g/dL (3.8-4.8) L 09/23/18 05:32 Albumin/Globulin Ratio 1.2 % 09/21/18 22:56 Nslio-6-Zglhimkyo 0.4 g/dL (0.2-0.3) H 09/23/18 05:32 Wklys-8-Usdvnnysh 0.8 g/dL (0.5-0.9) 09/23/18 05:32 Beta Globulins 0.4 g/dL (0.2-0.5) 09/23/18 05:32 Gamma Globulins 0.9 g/dL (0.8-1.7) 09/23/18 05:32 Abnorm Protein Band 1 see below 09/23/18 05:32 PEP Interpretation see below H 09/23/18 05:32 Triglycerides 208 mg/dL (2-149) H 09/21/18 23:57 Cholesterol 206 mg/dL (50-199) H 09/21/18 23:57 LDL Cholesterol Direct 143 mg/dL (50-130) H 09/21/18 23:57 HDL Cholesterol 40 mg/dL (40-59) 09/21/18 23:57 Cholesterol/HDL Ratio 5.15 % 09/21/18 23:57 Vitamin B12 839.9 pg/mL (211-911) 09/29/18 10:48 PTH Intact 417.9 pg/mL (15-65) H 09/29/18 10:48 Urine Color Yellow (Yellow) 09/23/18 16:00 Urine Turbidity Clear (Clear) 09/23/18 16:00 Urine pH 7.0 (5.0-7.0) 09/23/18 16:00 Ur Specific [place] 1.009 (1.003-1.030) 09/23/18 16:00 Urine Protein >500 mg/dL (Negative) 09/23/18 16:00 Urine Glucose (UA) 50 mg/dL (Negative) 09/23/18 16:00 Urine Ketones Neg mg/dL (Negative) 09/23/18 16:00 Urine Blood Neg (Negative) 09/23/18 16:00 Urine Nitrite Neg (Negative) 09/23/18 16:00 Urine Bilirubin Neg (Negative) 09/23/18 16:00 Urine Urobilinogen < 2.0 mg/dL (<2.0) 09/23/18 16:00 Ur Leukocyte Esterase Sm (Negative) 09/23/18 16:00 Urine WBC (Auto) 13.0 /HPF (0.0-6.0) H 09/23/18 16:00 Urine RBC (Auto) 1.0 /HPF (0.0-6.0) 09/23/18 16:00 U Epithel Cells (Auto) < 1.0 /HPF (0-13.0) 09/23/18 16:00 Urine Bacteria (Auto) 1+ /HPF (Negative) 09/23/18 16:00 Hyaline Casts 3 /LPF 09/23/18 16:00 Urine Mucus Few /HPF 09/23/18 16:00 Urine Eosinophils None seen (None Seen) 09/22/18 16:00 Urine Creatinine 80.7 mg/dL (0.1-20.0) H 09/23/18 16:00 Urine Sodium 66 mmol/L 09/23/18 16:00 Fraction Sodium Excret 3.6 09/23/18 16:00 Salicylates < 0.3 mg/dL (2.8-20.0) L 09/21/18 22:56 Acetaminophen < 5.0 ug/mL (10.0-30.0) L 09/21/18 22:56 Plasma/Serum Alcohol < 0.01 % (0-0.07) 09/21/18 22:56 AGATA Screen Negative (Negative) 09/22/18 18:06 Proteinase 3 (PR3) Ab <1.0 AI (<1.0) 09/22/18 18:06 Myeloperoxidase Ab <1.0 AI (<1.0) 09/22/18 18:06 Double Strand DNA Ab 1 IU/mL (<=4) 09/22/18 18:06 Complement C3 113 mg/dL (83-193) 09/22/18 18:06 Complement C4 57 mg/dL (15-57) 09/22/18 18:06 Hepatitis A IgM Ab Non-reactive (NonReactive) 09/22/18 18:06 Hep Bs Antigen Non-reactive (Negative) 09/22/18 18:06 Hep B Core IgM Ab Non-reactive (NonReactive) 09/22/18 18:06 Hepatitis C Antibody Non-reactive (NonReactive) 09/22/18 18:06 Blood Type A POSITIVE 10/01/18 10:47 Antibody Screen Negative 10/01/18 10:47 Crossmatch See Detail 10/01/18 10:47 - Imaging and Cardiology EKG: report reviewed Chest x-ray: report reviewed US - abdomen: report reviewed Nutrition/Malnutrition Assess - Dietary Evaluation Nutrition/Malnutrition Findings: Nutrition Notes Start: 09/23/18 13:24 Freq: Status: Active Protocol: Document 09/29/18 14:27 ENEIDA (Rec: 09/29/18 14:32 ENEIDA [email or web address]) Nutrition Notes Initial or Follow up Reassessment Current Diagnosis CKD (stage V CKD) Diabetes Hypertension Respiratory Failure Other Pertinent Diagnosis Pneu Current Diet TF - Nepro at 35ml/hr Labs/Tests Reviewed Pertinent Medications Lantus Height 5 ft 3 in Weight 75 kg [place] Body Weight (kg) 52.27 BMI 29.2 Subjective/Other Information Pt remains on vent support. She is tolerating TF at goal rate. Percent of energy/protein needs met: 100% energy 76% pro Burn Absent Trauma Absent #1 Nutrition Diagnosis Inadequate oral intake Diagnosis Progress(for reassessment Continues documentation) Is patient on ventilator? Yes Is Patient Ambulatory and/or Out of Bed No [facility] 1510.488 [facility]culation [facility] Additional Notes Pro needs 1.2-2g/k-150g/ day Fluid needs 1-1.5L/day Nutrition Intervention Nutrition Support: Continue Nepro at 35ml/hr Water flush of 150 ml q4h or per MD order Kcal 1,512 Protein (gm) 68 Fluid (mL) 610 Goal #1 TF tolerance Goal #2 TF to meet at least 80% energy and pro needs Follow-Up By: 10/07/18 Additional Comments F/U: stable TF, wt, vent status
[2018-10-03] MEDS ORDERED: NACL 0.9 (PRIMING MACHINE ONLY DIALYSIS) MC ONE (17:36)
[2018-10-03] MEDS: LANTUS SUB-Q SCH (21:19)
[2018-10-04] MEDS: HumaLOG SUB-Q SCH ×4 (00:02→17:35)
[2018-10-04 01:16] LABS: Hematocrit 27.7 % (30.3-42.9); Mean Corpuscular HGB Conc 33 % (30-34); Mean Corpuscular Volume 86 fl (79-97); Platelet Count 275 K/mm3 (140-440); Red Blood Count 3.23 M/mm3 (3.65-5.03); Red Cell Distribution Width 14.4 % (13.2-15.2)
[2018-10-04 01:37] LABS: Calcium 8.7 mg/dL (8.4-10.2)
[2018-10-04] MEDS: APRESOLINE PO SCH ×3 (09:11→20:04)
[2018-10-04] MEDS: SODIUM CHLORIDE FLUSH SYRINGE 10 ML IV SCH ×2 (09:12→22:05)
[2018-10-04] MEDS: PEPCID PO SCH (09:12)
[2018-10-04] MEDS: LOVENOX SUB-Q SCH ×2 (09:12→09:24)
[2018-10-04] MEDS: SENOKOT S PO SCH ×2 (09:12→22:04)
--- NOTE | 2018-10-04 09:53 | Progress Note ---
Assessment and Plan Impression * ESRD--new onset --Status post right IJ Vas-Cath placement on 09/23/2018. * Acute hypoxic respiratory failure secondary to pneumonia plus /minus fluid overload * Metabolic acidosis -resolved * Hyperkalemia - resolved * Type II diabetes mellitus * Hypertension * renal mass * Proteinuria Recommendations * Hemodialysis continue MWF and prn schedule * hd today, has new perm cath in place * UF as tolerated * will need outpatient hd placement * vascular for perm cath placement * Avoid nephrotoxins * Monitor fluid status and electrolytes closely * follow up MRI without contrast for renal mass Subjective Date of service: 10/04/18 Principal diagnosis: acute respiratory failure, end-stage renal disease, AMS Interval history: resting well in bed today Objective - Exam Narrative Exam: HEENT: Oral mucosa moist Neck: Supple no JVD Chest: Clear to auscultation anteriorly Posteriorly has crackles in bases CVS: Regular rate and rhythm S1 and S2 heard Abdomen: Soft nontender no suprapubic masses no organomegaly appreciable Extremity: Dry skin less than 1+ peripheral edema Musculoskeletal: No joint effusion noted in knees and ankle Dermatology: No petechial rashes Psychiatry: No evidence of any agitation and aggression noted - Vital Signs Vital signs: Vital Signs - 12hr 10/04/18 10/04/18 03:16 07:41 Temperature 98.1 F 98.6 F Pulse Rate 103 H 111 H Respiratory 18 20 Rate Blood Pressure 156/63 146/86 O2 Sat by Pulse 93 96 Oximetry - Lab 10/04/18 00:44 10/04/18 00:44 Most recent lab results Calcium 8.7 mg/dL (8.4-10.2) 10/04/18 00:44 Phosphorus 5.30 mg/dL (2.5-4.5) H 09/29/18 10:48 Urine Creatinine 80.7 mg/dL (0.1-20.0) H 09/23/18 16:00 Urine Sodium 66 mmol/L 09/23/18 16:00 Medications & Allergies - Medications Allergies/Adverse Reactions: Allergies codeine Adverse Reaction (Verified 09/23/18 10:09) Unknown Home Medications: Home Medications Medication Instructions Recorded Confirmed Last Taken Type ALBUTEROL NEB's [Proventil 0.083% 2.5 mg INHALATION Q6H PRN 09/25/18 09/25/18 Unknown History NEBS] Carvedilol 25 mg PO Q12H 09/25/18 09/25/18 Unknown History Clonidine 0.2 mg PO BID 09/25/18 09/25/18 Unknown History Doxazosin 2 mg PO DAILY 09/25/18 09/25/18 Unknown History Dss 100 mg PO BID 09/25/18 09/25/18 Unknown History Fluticasone [Flonase] 1 spray INNOSTRIL DAILY 09/25/18 09/25/18 Unknown History Insulin NPH/Regular [Novolin 70/30] 20 unit SQ DAILY 09/25/18 09/25/18 Unknown History Isosorbide Mononitrate 30 mg PO DAILY 09/25/18 09/25/18 Unknown History NIFEdipine [Nifedipine ER] 60 mg PO BID 09/25/18 09/25/18 Unknown History Sevelamer Carbonate 1 tab PO TID 09/25/18 09/25/18 Unknown History Simvastatin [Zocor] 1 tab PO DAILY 09/25/18 09/25/18 Unknown History Torsemide [Demadex] 0.5 tab PO DAILY 09/25/18 09/25/18 Unknown History hydrALAZINE 100 mg PO Q8H 09/25/18 09/25/18 Unknown History Active Medications: Generic Name Dose Route Start Last Admin Trade Name Freq PRN Reason Stop Dose Admin Acetaminophen 650 mg 09/22/18 04:14 09/26/18 03:56 Tylenol PO 650 mg Q4H PRN Administration Pain MILD(1-3)/Fever >100.5/MEJIA Lipase/Protease/Amylase 1 each 09/23/18 13:57 Pancrenuha Bourgeois 10,500 Unit FEEDTUBE PRN PRN For Clogged Feeding Tube Clonidine HCl 0.2 mg 09/28/18 10:00 09/28/18 12:02 Catapres-Tts Patch TD 0.2 mg Mae KAILA Administration Dextrose 50 ml 09/22/18 04:14 D50w (25gm) Syringe IV PRN PRN Hypoglycemia Enoxaparin Sodium 30 mg 09/22/18 10:00 10/04/18 09:24 Lovenox SUB-Q Not Given QDAY KAILA Epinephrine 0.5 ml 09/25/18 12:52 10/01/18 00:13 S2 Racepinephrine 2.25% IH 0.5 ml Q4HRT PRN Administration stridor Famotidine 20 mg 09/29/18 10:00 10/04/18 09:12 Pepcid PO 20 mg DAILY KAILA Administration Haloperidol Lactate 5 mg 10/01/18 11:00 Haldol IV Q6H PRN Agitation Hydralazine HCl 10 mg 09/22/18 19:30 10/03/18 16:45 Apresoline IV 10 mg Q4HR PRN Administration SBP>160 Hydralazine HCl 50 mg 09/29/18 14:00 10/04/18 09:11 Apresoline PO 50 mg TID KAILA Administration Sodium Chloride 100 mls @ 999 mls/hr 09/29/18 09:26 Nacl 0.9% IV CAROLINE PRN Hypotension Insulin Glargine 5 units 09/28/18 22:00 10/03/18 21:19 Lantus SUB-Q 5 units QHS KAILA Administration Insulin Human Lispro 0 unit 09/22/18 06:00 10/04/18 07:02 Humalog SUB-Q Not Given Q6HR [facility] Protocol Lorazepam 1 mg 09/23/18 10:06 09/29/18 20:32 Ativan IV 1 mg Q4H PRN Administration Agitation Ondansetron HCl 4 mg 09/30/18 22:58 Zofran IV Q8H PRN Nausea And Vomiting Senna/Docusate Sodium 2 tab 09/30/18 12:00 10/04/18 09:12 Senokot S PO 2 tab BID KAILA Administration Simple Syrup 15 ml 09/23/18 13:57 Simple Syrup FEEDTUBE PRN PRN Hypoglycemia Simple Syrup 30 ml 09/23/18 13:57 Simple Syrup FEEDTUBE PRN PRN Hypoglycemia Sodium Bicarbonate 325 mg 09/23/18 13:57 Sodium Bicarbonate FEEDTUBE PRN PRN For Clogged Feeding Tube Sodium Chloride 10 ml 09/22/18 10:00 10/04/18 09:12 Sodium Chloride Flush Syringe 10 Ml IV 10 ml BID KAILA Administration Sodium Chloride 10 ml 09/22/18 04:14 10/03/18 16:46 Sodium Chloride Flush Syringe 10 Ml IV 10 ml PRN PRN Administration LINE FLUSH
--- NOTE | 2018-10-04 13:44 | Event Note ---
Date: 10/04/18 Patient out reportedly on hemodialysis or procedure. We'll follow when back on her room for review..
[2018-10-04] MEDS ORDERED: NACL 0.9 (PRIMING MACHINE ONLY DIALYSIS) MC ONE (15:17)
--- NOTE | 2018-10-04 15:41 | Progress Note ---
Assessment and Plan ESRD new on HD renal on board oupt HD set up DM II Continue meds Acute Physical debility PT eval if not already done HTN continue meds Acute Hypoxic resp failure 2/2 Volume overlaod s/p extubation pulm on board Suspect Aspiration continue IV abx aspiration precautions at all times further pt mgt per hospital course Disposition Plan: DC home once dialysis placement to secure Total Time Spent with Patient (Minutes): 30 mins Subjective Date of service: 10/04/18 Principal diagnosis: acute respiratory failure, end-stage renal disease, AMS Interval history: Sitting up in bed. No distress. Objective - Exam Narrative Exam: Constitutional: Well-nourished well-developed. In no distress Head: Normocephalic atraumatic Eyes: Pupils are equal round and reactive to light Nose: No enlarged turbinates, no septal deviation. Mouth: Moist mucous membranes. Neck: Supple no thyromegaly. No bruit. No JVD Heart: Regular rate and rhythm, S1-S2 normal. No rubs murmurs or gallop Lungs: Clear to auscultation bilaterally. no rales or rhonchi Abdomen: Soft, nontender. Bowel sound are present. Extremities: No edema, no cyanosis, no clubbing. Neuro: Alert oriented Oriented x3. No focal sensory or motor deficit. Skin: No rashes or hyperpigmented spots Musculoskeletal system: No joint pain or swelling Hematological: No petechia or subcutanous hemorrhages. Immunological: No multiple septic spots on the skin Lymphatic: No generalized lymphadenopathy Psychiatry: Euthymic. Calm. - Constitutional Vitals: Vital Signs - 12hr 10/04/18 10/04/18 10/04/18 07:41 11:00 11:15 Temperature 98.6 F 98.7 F Pulse Rate 111 H 100 H 100 H Respiratory 20 18 Rate Blood Pressure 146/86 207/95 200/92 O2 Sat by Pulse 96 Oximetry 10/04/18 10/04/18 10/04/18 11:30 11:45 12:00 Temperature Pulse Rate 96 H 107 H 103 H Respiratory Rate Blood Pressure 202/90 188/85 195/87 O2 Sat by Pulse Oximetry 10/04/18 10/04/18 10/04/18 12:15 12:30 12:45 Temperature Pulse Rate 102 H 107 H 108 H Respiratory Rate Blood Pressure 202/90 197/90 195/87 O2 Sat by Pulse Oximetry 10/04/18 10/04/18 10/04/18 13:00 13:15 13:30 Temperature Pulse Rate 106 H 105 H 105 H Respiratory Rate Blood Pressure 175/81 176/81 184/87 O2 Sat by Pulse Oximetry 10/04/18 10/04/18 10/04/18 13:45 14:00 14:15 Temperature Pulse Rate 106 H 105 H 104 H Respiratory Rate Blood Pressure 176/81 184/87 173/81 O2 Sat by Pulse Oximetry 10/04/18 10/04/18 14:30 14:45 Temperature Pulse Rate 105 H 109 H Respiratory Rate Blood Pressure 197/89 189/81 O2 Sat by Pulse Oximetry - Labs CBC & Chem 7: 10/04/18 00:44 10/04/18 00:44 Labs: Abnormal lab results 10/03/18 10/03/18 10/03/18 Range/Units 18:36 21:21 23:52 WBC (4.5-11.0) K/mm3 RBC (3.65-5.03) M/mm3 Hgb (10.1-14.3) gm/dl Hct (30.3-42.9) % Sodium (137-145) mmol/L Chloride (98-107) mmol/L BUN (7-17) mg/dL Creatinine (0.7-1.2) mg/dL Glucose (65-100) mg/dL POC Glucose 267 H 235 H 197 H (70-105) 10/04/18 10/04/18 10/04/18 Range/Units 00:44 00:44 06:33 WBC 11.8 H (4.5-11.0) K/mm3 RBC 3.23 L (3.65-5.03) M/mm3 Hgb 9.0 L (10.1-14.3) gm/dl Hct 27.7 L (30.3-42.9) % Sodium 136 L (137-145) mmol/L Chloride 94.8 L (98-107) mmol/L BUN 47 H (7-17) mg/dL Creatinine 7.6 H (0.7-1.2) mg/dL Glucose 182 H (65-100) mg/dL POC Glucose 138 H (70-105)
[2018-10-04] MEDS: LANTUS SUB-Q SCH (22:11)
[2018-10-05] MEDS: HumaLOG SUB-Q SCH ×4 (00:29→22:04)
[2018-10-05 04:48] LABS: Basophils # (Auto) 0.2 K/mm3 (0.0-0.1); Basophils % (Auto) 1.3 % (0.0-1.8); Eosinophils # (Auto) 0.6 K/mm3 (0.0-0.4); Eosinophils % (Auto) 4.9 % (0.0-4.3); Hematocrit 24.4 % (30.3-42.9); Hemoglobin 8.1 gm/dl (10.1-14.3); Lymphocytes # (Auto) 1.7 K/mm3 (1.2-5.4); Lymphocytes % (Auto) 14.5 % (13.4-35.0); Mean Corpuscular HGB Conc 33 % (30-34); Mean Corpuscular Volume 85 fl (79-97); Monocytes # (Auto) 1.4 K/mm3 (0.0-0.8); Platelet Count 217 K/mm3 (140-440); Red Blood Count 2.86 M/mm3 (3.65-5.03); Red Cell Distribution Width 14.3 % (13.2-15.2)
[2018-10-05 05:04] LABS: Alanine Aminotransferase < 5 units/L (7-56); BUN/Creatinine Ratio 4; Blood Urea Nitrogen 16 mg/dL (7-17); Calcium 8.4 mg/dL (8.4-10.2); Hemolysis Index 20
--- NOTE | 2018-10-05 08:03 | Progress Note ---
Assessment and Plan ESRD new on HD on MWF renal on board Awaiting out pt HD placment DM II Continue meds Acute Physical debility PT eval if not already done HTN continue meds Acute Hypoxic resp failure 2/2 Volume overlaod s/p extubation pulm on board Suspect Aspiration continue IV abx aspiration precautions at all times Further pt mgt per hospital course Disposition Plan: DC home once dialysis placement is secure Total Time Spent with Patient (Minutes): 30 mins Subjective Date of service: 10/05/18 Principal diagnosis: acute respiratory failure, end-stage renal disease, AMS Interval history: No new complain. No distress. Objective - Exam Narrative Exam: Constitutional: Well-nourished well-developed. In no distress Head: Normocephalic atraumatic Eyes: Pupils are equal round and reactive to light Nose: No enlarged turbinates, no septal deviation. Mouth: Moist mucous membranes. Neck: Supple no thyromegaly. No bruit. No JVD Heart: Regular rate and rhythm, S1-S2 normal. No rubs murmurs or gallop Lungs: Clear to auscultation bilaterally. no rales or rhonchi Abdomen: Soft, nontender. Bowel sound are present. Extremities: No edema, no cyanosis, no clubbing. Neuro: Alert oriented Oriented x3. No focal sensory or motor deficit. Skin: No rashes or hyperpigmented spots Musculoskeletal system: No joint pain or swelling Hematological: No petechia or subcutanous hemorrhages. Immunological: No multiple septic spots on the skin Lymphatic: No generalized lymphadenopathy Psychiatry: Euthymic. Calm. - Constitutional Vitals: Vital Signs - 12hr 10/04/18 10/04/18 10/05/18 21:00 22:00 03:00 Temperature 98.6 F Pulse Rate 125 H Pulse Rate [ From Monitor] Respiratory 18 Rate Blood Pressure O2 Sat by Pulse 100 100 Oximetry 10/05/18 10/05/18 03:27 07:17 Temperature Pulse Rate 111 H Pulse Rate [ 105 H From Monitor] Respiratory 18 18 Rate Blood Pressure 155/53 O2 Sat by Pulse 95 97 Oximetry - Labs CBC & Chem 7: 10/05/18 04:00 10/05/18 04:00 Labs: Abnormal lab results 10/04/18 10/05/18 10/05/18 Range/Units 17:33 04:00 04:00 WBC 11.9 H (4.5-11.0) K/mm3 RBC 2.86 L (3.65-5.03) M/mm3 Hgb 8.1 L (10.1-14.3) gm/dl Hct 24.4 L (30.3-42.9) % [place] % (Auto) 12.0 H (0.0-7.3) % Eos % (Auto) 4.9 H (0.0-4.3) % [place] # 1.4 H (0.0-0.8) K/mm3 Eos # 0.6 H (0.0-0.4) K/mm3 Baso # 0.2 H (0.0-0.1) K/mm3 Seg Neutrophils # 8.0 H (1.8-7.7) K/mm3 Creatinine 4.3 H (0.7-1.2) mg/dL POC Glucose 144 H (70-105) ALT < 5 L (7-56) units/L Total Protein 6.2 L (6.3-8.2) g/dL Albumin 3.0 L (3.9-5) g/dL
[2018-10-05] MEDS: SENOKOT S PO SCH ×2 (10:51→23:05)
[2018-10-05] MEDS: PEPCID PO SCH (10:51)
[2018-10-05] MEDS: LOVENOX SUB-Q SCH (10:51)
[2018-10-05] MEDS: APRESOLINE PO SCH ×3 (10:52→23:03)
[2018-10-05] MEDS: CATAPRES-TTS PATCH TD SCH (10:53)
[2018-10-05] MEDS: SODIUM CHLORIDE FLUSH SYRINGE 10 ML IV SCH ×2 (10:53→23:05)
--- NOTE | 2018-10-05 11:03 | Progress Note ---
Subjective Date of service: 10/05/18 Principal diagnosis: acute respiratory failure, end-stage renal disease, AMS Interval history: reviewed all notes and went over the recent lab's patient is doing continue to monitor no more seizures present Objective - Vital Sign Vital Signs - 12hr 10/05/18 10/05/18 10/05/18 03:00 03:27 07:17 Temperature 98.6 F Pulse Rate 111 H Pulse Rate [ 105 H From Monitor] Respiratory 18 18 Rate Blood Pressure 155/53 O2 Sat by Pulse 95 97 Oximetry - Laboratory Findings CBC and BMP: 10/05/18 04:00 10/05/18 04:00 Abnormal Lab Findings: Abnormal Labs 09/21/18 09/21/18 09/21/18 22:56 22:56 22:56 WBC RBC 3.05 L Hgb 9.0 L Hct 26.9 L Lymph % (Auto) 9.3 L [place] % (Auto) Eos % (Auto) Lymph # 0.7 L [place] # Eos # Baso # Seg Neutrophils % 84.0 H Seg Neuts % (Manual) Lymphocytes % (Manual) Seg Neutrophils # Seg Neutrophils # Man Lymphocytes # (Manual) D-Dimer POC ABG pH POC ABG pCO2 POC ABG pO2 Sodium Potassium 5.2 H Chloride Carbon Dioxide 17 L BUN 53 H Creatinine 6.7 H Glucose 307 H POC Glucose Lactic Acid Calcium 8.2 L Phosphorus Iron TIBC Transferrin ALT CK-MB (CK-2) CK-MB (CK-2) Rel Index Troponin T Serum Total Protein Total Protein Albumin 3.6 L Xmegv-2-Eiudnakes PEP Interpretation Triglycerides Cholesterol LDL Cholesterol Direct PTH Intact Urine WBC (Auto) Urine Creatinine Salicylates < 0.3 L Acetaminophen Crossmatch 09/21/18 09/21/18 09/21/18 22:56 22:56 22:56 WBC RBC Hgb Hct Lymph % (Auto) [place] % (Auto) Eos % (Auto) Lymph # [place] # Eos # Baso # Seg Neutrophils % Seg Neuts % (Manual) Lymphocytes % (Manual) Seg Neutrophils # Seg Neutrophils # Man Lymphocytes # (Manual) D-Dimer 4401.15 H POC ABG pH POC ABG pCO2 POC ABG pO2 Sodium Potassium Chloride Carbon Dioxide BUN Creatinine Glucose POC Glucose Lactic Acid 3.70 H* Calcium Phosphorus Iron TIBC Transferrin ALT CK-MB (CK-2) CK-MB (CK-2) Rel Index Troponin T Serum Total Protein Total Protein Albumin Eqxqj-5-Yaihxihjk PEP Interpretation Triglycerides Cholesterol LDL Cholesterol Direct PTH Intact Urine WBC (Auto) Urine Creatinine Salicylates Acetaminophen < 5.0 L Crossmatch 09/21/18 09/21/18 09/22/18 23:14 23:57 00:48 WBC RBC Hgb Hct Lymph % (Auto) [place] % (Auto) Eos % (Auto) Lymph # [place] # Eos # Baso # Seg Neutrophils % Seg Neuts % (Manual) Lymphocytes % (Manual) Seg Neutrophils # Seg Neutrophils # Man Lymphocytes # (Manual) D-Dimer POC ABG pH 7.234 L 7.322 L POC ABG pCO2 POC ABG pO2 118 H 142 H Sodium Potassium Chloride Carbon Dioxide BUN Creatinine Glucose POC Glucose Lactic Acid Calcium Phosphorus Iron TIBC Transferrin ALT CK-MB (CK-2) CK-MB (CK-2) Rel Index Troponin T 0.062 H D Serum Total Protein Total Protein Albumin Koyvu-5-Hshwbbntz PEP Interpretation Triglycerides 208 H Cholesterol 206 H LDL Cholesterol Direct 143 H PTH Intact Urine WBC (Auto) Urine Creatinine Salicylates Acetaminophen Crossmatch 09/22/18 09/22/18 09/22/18 04:50 05:03 06:43 WBC RBC Hgb Hct Lymph % (Auto) [place] % (Auto) Eos % (Auto) Lymph # [place] # Eos # Baso # Seg Neutrophils % Seg Neuts % (Manual) Lymphocytes % (Manual) Seg Neutrophils # Seg Neutrophils # Man Lymphocytes # (Manual) D-Dimer POC ABG pH 7.556 H POC ABG pCO2 22.4 L POC ABG pO2 176 H Sodium Potassium Chloride Carbon Dioxide BUN Creatinine Glucose POC Glucose 116 H Lactic Acid Calcium Phosphorus Iron TIBC Transferrin ALT CK-MB (CK-2) 4.1 H CK-MB (CK-2) Rel Index 4.7 H Troponin T 0.107 H* D Serum Total Protein Total Protein Albumin Qajcd-7-Bxcqfofgo PEP Interpretation Triglycerides Cholesterol LDL Cholesterol Direct PTH Intact Urine WBC (Auto) Urine Creatinine Salicylates Acetaminophen Crossmatch 09/22/18 09/22/18 09/22/18 09:12 10:26 18:00 WBC RBC Hgb Hct Lymph % (Auto) [place] % (Auto) Eos % (Auto) Lymph # [place] # Eos # Baso # Seg Neutrophils % Seg Neuts % (Manual) Lymphocytes % (Manual) Seg Neutrophils # Seg Neutrophils # Man Lymphocytes # (Manual) D-Dimer POC ABG pH POC ABG pCO2 POC ABG pO2 Sodium Potassium Chloride Carbon Dioxide BUN Creatinine 6.7 H Glucose POC Glucose 124 H Lactic Acid Calcium Phosphorus Iron TIBC Transferrin ALT CK-MB (CK-2) CK-MB (CK-2) Rel Index Troponin T 0.074 H D Serum Total Protein Total Protein Albumin Bztan-9-Gdzfjfdwq PEP Interpretation Triglycerides Cholesterol LDL Cholesterol Direct PTH Intact Urine WBC (Auto) Urine Creatinine Salicylates Acetaminophen Crossmatch 09/23/18 09/23/18 09/23/18 03:57 04:24 04:24 WBC RBC 2.85 L Hgb 8.0 L Hct 24.4 L Lymph % (Auto) [place] % (Auto) 12.6 H Eos % (Auto) Lymph # [place] # 1.1 H Eos # Baso # Seg Neutrophils % Seg Neuts % (Manual) Lymphocytes % (Manual) Seg Neutrophils # Seg Neutrophils # Man Lymphocytes # (Manual) D-Dimer POC ABG pH POC ABG pCO2 27.2 L POC ABG pO2 113 H Sodium Potassium Chloride 113.4 H Carbon Dioxide 19 L BUN 54 H Creatinine 7.0 H Glucose POC Glucose Lactic Acid Calcium 8.3 L Phosphorus Iron TIBC Transferrin ALT CK-MB (CK-2) CK-MB (CK-2) Rel Index Troponin T Serum Total Protein Total Protein Albumin Ukdrx-6-Uktszblto PEP Interpretation Triglycerides Cholesterol LDL Cholesterol Direct PTH Intact Urine WBC (Auto) Urine Creatinine Salicylates Acetaminophen Crossmatch 09/23/18 09/23/18 09/23/18 05:32 16:00 16:00 WBC RBC Hgb Hct Lymph % (Auto) [place] % (Auto) Eos % (Auto) Lymph # [place] # Eos # Baso # Seg Neutrophils % Seg Neuts % (Manual) Lymphocytes % (Manual) Seg Neutrophils # Seg Neutrophils # Man Lymphocytes # (Manual) D-Dimer POC ABG pH POC ABG pCO2 POC ABG pO2 Sodium Potassium Chloride Carbon Dioxide BUN Creatinine Glucose POC Glucose Lactic Acid Calcium Phosphorus Iron TIBC Transferrin ALT CK-MB (CK-2) CK-MB (CK-2) Rel Index Troponin T Serum Total Protein 5.2 L Total Protein Albumin 2.5 L Sfess-7-Cwsyjivso 0.4 H PEP Interpretation see below H Triglycerides Cholesterol LDL Cholesterol Direct PTH Intact Urine WBC (Auto) 13.0 H Urine Creatinine 80.7 H Salicylates Acetaminophen Crossmatch 09/23/18 09/23/18 09/24/18 18:47 23:53 04:28 WBC RBC 2.66 L Hgb 7.6 L Hct 22.5 L Lymph % (Auto) [place] % (Auto) Eos % (Auto) Lymph # [place] # Eos # Baso # Seg Neutrophils % Seg Neuts % (Manual) Lymphocytes % (Manual) Seg Neutrophils # Seg Neutrophils # Man Lymphocytes # (Manual) D-Dimer POC ABG pH POC ABG pCO2 POC ABG pO2 Sodium Potassium Chloride Carbon Dioxide BUN Creatinine Glucose POC Glucose 115 H 145 H Lactic Acid Calcium Phosphorus Iron TIBC Transferrin ALT CK-MB (CK-2) CK-MB (CK-2) Rel Index Troponin T Serum Total Protein Total Protein Albumin Fztab-0-Urgkjlmun PEP Interpretation Triglycerides Cholesterol LDL Cholesterol Direct PTH Intact Urine WBC (Auto) Urine Creatinine Salicylates Acetaminophen Crossmatch 09/24/18 09/24/18 09/24/18 04:28 04:56 05:33 WBC RBC Hgb Hct Lymph % (Auto) [place] % (Auto) Eos % (Auto) Lymph # [place] # Eos # Baso # Seg Neutrophils % Seg Neuts % (Manual) Lymphocytes % (Manual) Seg Neutrophils # Seg Neutrophils # Man Lymphocytes # (Manual) D-Dimer POC ABG pH 7.551 H POC ABG pCO2 32.0 L POC ABG pO2 133 H Sodium Potassium Chloride Carbon Dioxide BUN 27 H Creatinine 4.8 H Glucose 129 H POC Glucose 127 H Lactic Acid Calcium 8.0 L Phosphorus Iron TIBC Transferrin ALT CK-MB (CK-2) CK-MB (CK-2) Rel Index Troponin T Serum Total Protein Total Protein Albumin Abkqg-3-Vlkybabrx PEP Interpretation Triglycerides Cholesterol LDL Cholesterol Direct PTH Intact Urine WBC (Auto) Urine Creatinine Salicylates Acetaminophen Crossmatch 09/24/18 09/24/18 09/24/18 12:39 19:57 23:53 WBC RBC Hgb Hct Lymph % (Auto) [place] % (Auto) Eos % (Auto) Lymph # [place] # Eos # Baso # Seg Neutrophils % Seg Neuts % (Manual) Lymphocytes % (Manual) Seg Neutrophils # Seg Neutrophils # Man Lymphocytes # (Manual) D-Dimer POC ABG pH POC ABG pCO2 POC ABG pO2 Sodium Potassium Chloride Carbon Dioxide BUN Creatinine Glucose POC Glucose 171 H 209 H 158 H Lactic Acid Calcium Phosphorus Iron TIBC Transferrin ALT CK-MB (CK-2) CK-MB (CK-2) Rel Index Troponin T Serum Total Protein Total Protein Albumin Uycnm-6-Djbspeqoc PEP Interpretation Triglycerides Cholesterol LDL Cholesterol Direct PTH Intact Urine WBC (Auto) Urine Creatinine Salicylates Acetaminophen Crossmatch 09/25/18 09/25/18 09/25/18 04:06 04:06 05:16 WBC RBC 2.73 L Hgb 7.9 L Hct 23.4 L Lymph % (Auto) [place] % (Auto) Eos % (Auto) Lymph # [place] # Eos # Baso # Seg Neutrophils % Seg Neuts % (Manual) Lymphocytes % (Manual) Seg Neutrophils # Seg Neutrophils # Man Lymphocytes # (Manual) D-Dimer POC ABG pH 7.477 H POC ABG pCO2 POC ABG pO2 122 H Sodium Potassium Chloride 97.2 L Carbon Dioxide BUN Creatinine 3.6 H Glucose 118 H POC Glucose Lactic Acid Calcium 8.2 L Phosphorus Iron TIBC Transferrin ALT CK-MB (CK-2) CK-MB (CK-2) Rel Index Troponin T Serum Total Protein Total Protein Albumin Fdlmb-3-Sqatnptzr PEP Interpretation Triglycerides Cholesterol LDL Cholesterol Direct PTH Intact Urine WBC (Auto) Urine Creatinine Salicylates Acetaminophen Crossmatch 09/25/18 09/25/18 09/25/18 05:55 12:29 16:21 WBC RBC Hgb Hct Lymph % (Auto) [place] % (Auto) Eos % (Auto) Lymph # [place] # Eos # Baso # Seg Neutrophils % Seg Neuts % (Manual) Lymphocytes % (Manual) Seg Neutrophils # Seg Neutrophils # Man Lymphocytes # (Manual) D-Dimer POC ABG pH 7.216 L POC ABG pCO2 79.9 H POC ABG pO2 Sodium Potassium Chloride Carbon Dioxide BUN Creatinine Glucose POC Glucose 144 H 128 H Lactic Acid Calcium Phosphorus Iron TIBC Transferrin ALT CK-MB (CK-2) CK-MB (CK-2) Rel Index Troponin T Serum Total Protein Total Protein Albumin Oxitf-0-Gihydzhon PEP Interpretation Triglycerides Cholesterol LDL Cholesterol Direct PTH Intact Urine WBC (Auto) Urine Creatinine Salicylates Acetaminophen Crossmatch 09/25/18 09/25/18 09/25/18 18:27 18:44 23:56 WBC RBC Hgb Hct Lymph % (Auto) [place] % (Auto) Eos % (Auto) Lymph # [place] # Eos # Baso # Seg Neutrophils % Seg Neuts % (Manual) Lymphocytes % (Manual) Seg Neutrophils # Seg Neutrophils # Man Lymphocytes # (Manual) D-Dimer POC ABG pH POC ABG pCO2 53.2 H POC ABG pO2 78 L Sodium Potassium Chloride Carbon Dioxide BUN Creatinine Glucose POC Glucose 264 H 170 H Lactic Acid Calcium Phosphorus Iron TIBC Transferrin ALT CK-MB (CK-2) CK-MB (CK-2) Rel Index Troponin T Serum Total Protein Total Protein Albumin Hskxz-0-Kuiqndhhl PEP Interpretation Triglycerides Cholesterol LDL Cholesterol Direct PTH Intact Urine WBC (Auto) Urine Creatinine Salicylates Acetaminophen Crossmatch 09/26/18 09/26/18 09/26/18 03:46 04:51 05:04 WBC RBC Hgb Hct Lymph % (Auto) [place] % (Auto) Eos % (Auto) Lymph # [place] # Eos # Baso # Seg Neutrophils % Seg Neuts % (Manual) Lymphocytes % (Manual) Seg Neutrophils # Seg Neutrophils # Man Lymphocytes # (Manual) D-Dimer POC ABG pH 7.584 H POC ABG pCO2 30.9 L POC ABG pO2 151 H Sodium Potassium Chloride 95.5 L Carbon Dioxide BUN 34 H Creatinine 5.4 H Glucose 185 H POC Glucose 186 H Lactic Acid Calcium Phosphorus Iron TIBC Transferrin ALT CK-MB (CK-2) CK-MB (CK-2) Rel Index Troponin T Serum Total Protein Total Protein Albumin Vxgoq-9-Gysshnyle PEP Interpretation Triglycerides Cholesterol LDL Cholesterol Direct PTH Intact Urine WBC (Auto) Urine Creatinine Salicylates Acetaminophen Crossmatch 09/26/18 09/26/18 09/26/18 06:23 12:41 17:55 WBC RBC Hgb Hct Lymph % (Auto) [place] % (Auto) Eos % (Auto) Lymph # [place] # Eos # Baso # Seg Neutrophils % Seg Neuts % (Manual) Lymphocytes % (Manual) Seg Neutrophils # Seg Neutrophils # Man Lymphocytes # (Manual) D-Dimer POC ABG pH 7.330 L POC ABG pCO2 49.9 H POC ABG pO2 Sodium Potassium Chloride Carbon Dioxide BUN Creatinine Glucose POC Glucose 182 H 171 H Lactic Acid Calcium Phosphorus Iron TIBC Transferrin ALT CK-MB (CK-2) CK-MB (CK-2) Rel Index Troponin T Serum Total Protein Total Protein Albumin Iakne-8-Xhsvpkjca PEP Interpretation Triglycerides Cholesterol LDL Cholesterol Direct PTH Intact Urine WBC (Auto) Urine Creatinine Salicylates Acetaminophen Crossmatch 09/27/18 09/27/18 09/27/18 00:06 05:11 05:36 WBC RBC Hgb Hct Lymph % (Auto) [place] % (Auto) Eos % (Auto) Lymph # [place] # Eos # Baso # Seg Neutrophils % Seg Neuts % (Manual) Lymphocytes % (Manual) Seg Neutrophils # Seg Neutrophils # Man Lymphocytes # (Manual) D-Dimer POC ABG pH POC ABG pCO2 POC ABG pO2 136 H Sodium Potassium Chloride Carbon Dioxide BUN Creatinine Glucose POC Glucose 170 H 115 H Lactic Acid Calcium Phosphorus Iron TIBC Transferrin ALT CK-MB (CK-2) CK-MB (CK-2) Rel Index Troponin T Serum Total Protein Total Protein Albumin Jpyul-0-Xmnlrstxy PEP Interpretation Triglycerides Cholesterol LDL Cholesterol Direct PTH Intact Urine WBC (Auto) Urine Creatinine Salicylates Acetaminophen Crossmatch 09/27/18 09/27/18 09/27/18 06:05 11:51 18:17 WBC RBC Hgb Hct Lymph % (Auto) [place] % (Auto) Eos % (Auto) Lymph # [place] # Eos # Baso # Seg Neutrophils % Seg Neuts % (Manual) Lymphocytes % (Manual) Seg Neutrophils # Seg Neutrophils # Man Lymphocytes # (Manual) D-Dimer POC ABG pH POC ABG pCO2 POC ABG pO2 Sodium Potassium Chloride 95.0 L Carbon Dioxide BUN 39 H Creatinine 5.1 H Glucose 145 H POC Glucose 181 H 214 H Lactic Acid Calcium Phosphorus Iron TIBC Transferrin ALT CK-MB (CK-2) CK-MB (CK-2) Rel Index Troponin T Serum Total Protein Total Protein Albumin Fsohp-3-Ihheupdld PEP Interpretation Triglycerides Cholesterol LDL Cholesterol Direct PTH Intact Urine WBC (Auto) Urine Creatinine Salicylates Acetaminophen Crossmatch 09/27/18 09/28/18 09/28/18 23:28 04:39 04:44 WBC RBC Hgb Hct Lymph % (Auto) [place] % (Auto) Eos % (Auto) Lymph # [place] # Eos # Baso # Seg Neutrophils % Seg Neuts % (Manual) Lymphocytes % (Manual) Seg Neutrophils # Seg Neutrophils # Man Lymphocytes # (Manual) D-Dimer POC ABG pH POC ABG pCO2 POC ABG pO2 151 H Sodium 134 L Potassium Chloride 95.2 L Carbon Dioxide BUN 61 H Creatinine 7.2 H Glucose 165 H POC Glucose 127 H Lactic Acid Calcium 8.0 L Phosphorus Iron TIBC Transferrin ALT CK-MB (CK-2) CK-MB (CK-2) Rel Index Troponin T Serum Total Protein Total Protein Albumin Nhcyr-4-Jcyxlynkg PEP Interpretation Triglycerides Cholesterol LDL Cholesterol Direct PTH Intact Urine WBC (Auto) Urine Creatinine Salicylates Acetaminophen Crossmatch 09/28/18 09/28/18 09/28/18 05:47 11:36 17:51 WBC RBC Hgb Hct Lymph % (Auto) [place] % (Auto) Eos % (Auto) Lymph # [place] # Eos # Baso # Seg Neutrophils % Seg Neuts % (Manual) Lymphocytes % (Manual) Seg Neutrophils # Seg Neutrophils # Man Lymphocytes # (Manual) D-Dimer POC ABG pH POC ABG pCO2 POC ABG pO2 Sodium Potassium Chloride Carbon Dioxide BUN Creatinine Glucose POC Glucose 159 H 240 H 268 H Lactic Acid Calcium Phosphorus Iron TIBC Transferrin ALT CK-MB (CK-2) CK-MB (CK-2) Rel Index Troponin T Serum Total Protein Total Protein Albumin Aaqcl-4-Gxkcugvqe PEP Interpretation Triglycerides Cholesterol LDL Cholesterol Direct PTH Intact Urine WBC (Auto) Urine Creatinine Salicylates Acetaminophen Crossmatch 09/28/18 09/29/18 09/29/18 23:24 05:20 09:45 WBC RBC Hgb Hct Lymph % (Auto) [place] % (Auto) Eos % (Auto) Lymph # [place] # Eos # Baso # Seg Neutrophils % Seg Neuts % (Manual) Lymphocytes % (Manual) Seg Neutrophils # Seg Neutrophils # Man Lymphocytes # (Manual) D-Dimer POC ABG pH POC ABG pCO2 POC ABG pO2 56 L Sodium Potassium Chloride Carbon Dioxide BUN Creatinine Glucose POC Glucose 194 H 127 H Lactic Acid Calcium Phosphorus Iron TIBC Transferrin ALT CK-MB (CK-2) CK-MB (CK-2) Rel Index Troponin T Serum Total Protein Total Protein Albumin Lylik-6-Jiuduuryk PEP Interpretation Triglycerides Cholesterol LDL Cholesterol Direct PTH Intact Urine WBC (Auto) Urine Creatinine Salicylates Acetaminophen Crossmatch 09/29/18 09/29/18 09/29/18 09:54 10:48 10:48 WBC 14.5 H RBC 2.67 L Hgb 7.4 L Hct 22.6 L Lymph % (Auto) [place] % (Auto) Eos % (Auto) Lymph # [place] # Eos # Baso # Seg Neutrophils % Seg Neuts % (Manual) 90.0 H Lymphocytes % (Manual) 6.0 L Seg Neutrophils # Seg Neutrophils # Man 13.1 H Lymphocytes # (Manual) 0.9 L D-Dimer POC ABG pH POC ABG pCO2 POC ABG pO2 72 L Sodium Potassium Chloride Carbon Dioxide BUN Creatinine Glucose POC Glucose Lactic Acid Calcium Phosphorus 5.30 H Iron 15 L TIBC 146 L Transferrin 109 L ALT CK-MB (CK-2) CK-MB (CK-2) Rel Index Troponin T Serum Total Protein Total Protein Albumin Lvjos-4-Acqjqcmez PEP Interpretation Triglycerides Cholesterol LDL Cholesterol Direct PTH Intact Urine WBC (Auto) Urine Creatinine Salicylates Acetaminophen Crossmatch 09/29/18 09/29/18 09/29/18 10:48 12:24 18:25 WBC RBC Hgb Hct Lymph % (Auto) [place] % (Auto) Eos % (Auto) Lymph # [place] # Eos # Baso # Seg Neutrophils % Seg Neuts % (Manual) Lymphocytes % (Manual) Seg Neutrophils # Seg Neutrophils # Man Lymphocytes # (Manual) D-Dimer POC ABG pH POC ABG pCO2 POC ABG pO2 Sodium Potassium Chloride Carbon Dioxide BUN Creatinine Glucose POC Glucose 260 H 203 H Lactic Acid Calcium Phosphorus Iron TIBC Transferrin ALT CK-MB (CK-2) CK-MB (CK-2) Rel Index Troponin T Serum Total Protein Total Protein Albumin Janhi-8-Jjahwicdp PEP Interpretation Triglycerides Cholesterol LDL Cholesterol Direct PTH Intact 417.9 H Urine WBC (Auto) Urine Creatinine Salicylates Acetaminophen Crossmatch 09/30/18 09/30/18 09/30/18 00:14 05:12 12:06 WBC RBC Hgb Hct Lymph % (Auto) [place] % (Auto) Eos % (Auto) Lymph # [place] # Eos # Baso # Seg Neutrophils % Seg Neuts % (Manual) Lymphocytes % (Manual) Seg Neutrophils # Seg Neutrophils # Man Lymphocytes # (Manual) D-Dimer POC ABG pH POC ABG pCO2 POC ABG pO2 Sodium Potassium Chloride Carbon Dioxide BUN Creatinine Glucose POC Glucose 260 H 136 H 193 H Lactic Acid Calcium Phosphorus Iron TIBC Transferrin ALT CK-MB (CK-2) CK-MB (CK-2) Rel Index Troponin T Serum Total Protein Total Protein Albumin Kkfto-1-Sncgzcidq PEP Interpretation Triglycerides Cholesterol LDL Cholesterol Direct PTH Intact Urine WBC (Auto) Urine Creatinine Salicylates Acetaminophen Crossmatch 09/30/18 09/30/18 10/01/18 17:23 23:29 05:48 WBC 16.4 H RBC 2.55 L Hgb 7.1 L Hct 21.9 L Lymph % (Auto) [place] % (Auto) Eos % (Auto) Lymph # [place] # Eos # Baso # Seg Neutrophils % Seg Neuts % (Manual) Lymphocytes % (Manual) Seg Neutrophils # Seg Neutrophils # Man Lymphocytes # (Manual) D-Dimer POC ABG pH POC ABG pCO2 POC ABG pO2 Sodium Potassium Chloride Carbon Dioxide BUN Creatinine Glucose POC Glucose 119 H 159 H Lactic Acid Calcium Phosphorus Iron TIBC Transferrin ALT CK-MB (CK-2) CK-MB (CK-2) Rel Index Troponin T Serum Total Protein Total Protein Albumin Ipwey-9-Khdovgvhe PEP Interpretation Triglycerides Cholesterol LDL Cholesterol Direct PTH Intact Urine WBC (Auto) Urine Creatinine Salicylates Acetaminophen Crossmatch 10/01/18 10/01/18 10/01/18 05:48 09:21 10:47 WBC RBC Hgb Hct Lymph % (Auto) [place] % (Auto) Eos % (Auto) Lymph # [place] # Eos # Baso # Seg Neutrophils % Seg Neuts % (Manual) Lymphocytes % (Manual) Seg Neutrophils # Seg Neutrophils # Man Lymphocytes # (Manual) D-Dimer POC ABG pH 7.462 H POC ABG pCO2 POC ABG pO2 108 H Sodium Potassium Chloride 95.6 L Carbon Dioxide BUN 53 H Creatinine 6.5 H Glucose POC Glucose Lactic Acid Calcium Phosphorus Iron TIBC Transferrin ALT CK-MB (CK-2) CK-MB (CK-2) Rel Index Troponin T Serum Total Protein Total Protein Albumin Hyrbi-4-Zajabrfxh PEP Interpretation Triglycerides Cholesterol LDL Cholesterol Direct PTH Intact Urine WBC (Auto) Urine Creatinine Salicylates Acetaminophen Crossmatch See Detail 10/01/18 10/01/18 10/02/18 18:36 23:00 05:06 WBC RBC Hgb Hct Lymph % (Auto) [place] % (Auto) Eos % (Auto) Lymph # [place] # Eos # Baso # Seg Neutrophils % Seg Neuts % (Manual) Lymphocytes % (Manual) Seg Neutrophils # Seg Neutrophils # Man Lymphocytes # (Manual) D-Dimer POC ABG pH POC ABG pCO2 POC ABG pO2 Sodium Potassium Chloride Carbon Dioxide BUN Creatinine Glucose POC Glucose 123 H 128 H 177 H Lactic Acid Calcium Phosphorus Iron TIBC Transferrin ALT CK-MB (CK-2) CK-MB (CK-2) Rel Index Troponin T Serum Total Protein Total Protein Albumin Ymwgu-5-Yewnvicon PEP Interpretation Triglycerides Cholesterol LDL Cholesterol Direct PTH Intact Urine WBC (Auto) Urine Creatinine Salicylates Acetaminophen Crossmatch 10/02/18 10/02/18 10/02/18 12:18 17:48 23:17 WBC RBC Hgb Hct Lymph % (Auto) [place] % (Auto) Eos % (Auto) Lymph # [place] # Eos # Baso # Seg Neutrophils % Seg Neuts % (Manual) Lymphocytes % (Manual) Seg Neutrophils # Seg Neutrophils # Man Lymphocytes # (Manual) D-Dimer POC ABG pH POC ABG pCO2 POC ABG pO2 Sodium Potassium Chloride Carbon Dioxide BUN Creatinine Glucose POC Glucose 145 H 173 H 106 H Lactic Acid Calcium Phosphorus Iron TIBC Transferrin ALT CK-MB (CK-2) CK-MB (CK-2) Rel Index Troponin T Serum Total Protein Total Protein Albumin Wlsoq-7-Jfoytlucu PEP Interpretation Triglycerides Cholesterol LDL Cholesterol Direct PTH Intact Urine WBC (Auto) Urine Creatinine Salicylates Acetaminophen Crossmatch 10/03/18 10/03/18 10/03/18 03:25 03:25 07:10 WBC RBC 3.45 L Hgb 9.8 L Hct 29.1 L D Lymph % (Auto) [place] % (Auto) Eos % (Auto) Lymph # [place] # Eos # Baso # Seg Neutrophils % Seg Neuts % (Manual) Lymphocytes % (Manual) Seg Neutrophils # Seg Neutrophils # Man Lymphocytes # (Manual) D-Dimer POC ABG pH POC ABG pCO2 POC ABG pO2 Sodium Potassium Chloride 94.4 L Carbon Dioxide BUN 39 H Creatinine 6.0 H Glucose 130 H POC Glucose 141 H Lactic Acid Calcium Phosphorus Iron TIBC Transferrin ALT CK-MB (CK-2) CK-MB (CK-2) Rel Index Troponin T Serum Total Protein Total Protein Albumin Xuant-3-Sowpeatxb PEP Interpretation Triglycerides Cholesterol LDL Cholesterol Direct PTH Intact Urine WBC (Auto) Urine Creatinine Salicylates Acetaminophen Crossmatch 10/03/18 10/03/18 10/03/18 12:16 18:36 21:21 WBC RBC Hgb Hct Lymph % (Auto) [place] % (Auto) Eos % (Auto) Lymph # [place] # Eos # Baso # Seg Neutrophils % Seg Neuts % (Manual) Lymphocytes % (Manual) Seg Neutrophils # Seg Neutrophils # Man Lymphocytes # (Manual) D-Dimer POC ABG pH POC ABG pCO2 POC ABG pO2 Sodium Potassium Chloride Carbon Dioxide BUN Creatinine Glucose POC Glucose 146 H 267 H 235 H Lactic Acid Calcium Phosphorus Iron TIBC Transferrin ALT CK-MB (CK-2) CK-MB (CK-2) Rel Index Troponin T Serum Total Protein Total Protein Albumin Txrnm-1-Varfnzyaa PEP Interpretation Triglycerides Cholesterol LDL Cholesterol Direct PTH Intact Urine WBC (Auto) Urine Creatinine Salicylates Acetaminophen Crossmatch 10/03/18 10/04/18 10/04/18 23:52 00:44 00:44 WBC 11.8 H RBC 3.23 L Hgb 9.0 L Hct 27.7 L Lymph % (Auto) [place] % (Auto) Eos % (Auto) Lymph # [place] # Eos # Baso # Seg Neutrophils % Seg Neuts % (Manual) Lymphocytes % (Manual) Seg Neutrophils # Seg Neutrophils # Man Lymphocytes # (Manual) D-Dimer POC ABG pH POC ABG pCO2 POC ABG pO2 Sodium 136 L Potassium Chloride 94.8 L Carbon Dioxide BUN 47 H Creatinine 7.6 H Glucose 182 H POC Glucose 197 H Lactic Acid Calcium Phosphorus Iron TIBC Transferrin ALT CK-MB (CK-2) CK-MB (CK-2) Rel Index Troponin T Serum Total Protein Total Protein Albumin Zpuka-8-Zpbpabedy PEP Interpretation Triglycerides Cholesterol LDL Cholesterol Direct PTH Intact Urine WBC (Auto) Urine Creatinine Salicylates Acetaminophen Crossmatch 10/04/18 10/04/18 10/05/18 06:33 17:33 04:00 WBC 11.9 H RBC 2.86 L Hgb 8.1 L Hct 24.4 L Lymph % (Auto) [place] % (Auto) 12.0 H Eos % (Auto) 4.9 H Lymph # [place] # 1.4 H Eos # 0.6 H Baso # 0.2 H Seg Neutrophils % Seg Neuts % (Manual) Lymphocytes % (Manual) Seg Neutrophils # 8.0 H Seg Neutrophils # Man Lymphocytes # (Manual) D-Dimer POC ABG pH POC ABG pCO2 POC ABG pO2 Sodium Potassium Chloride Carbon Dioxide BUN Creatinine Glucose POC Glucose 138 H 144 H Lactic Acid Calcium Phosphorus Iron TIBC Transferrin ALT CK-MB (CK-2) CK-MB (CK-2) Rel Index Troponin T Serum Total Protein Total Protein Albumin [id number] PEP Interpretation Triglycerides Cholesterol LDL Cholesterol Direct PTH Intact Urine WBC (Auto) Urine Creatinine Salicylates Acetaminophen Crossmatch 10/05/18 04:00 WBC RBC Hgb Hct Lymph % (Auto) [place] % (Auto) Eos % (Auto) Lymph # [place] # Eos # Baso # Seg Neutrophils % Seg Neuts % (Manual) Lymphocytes % (Manual) Seg Neutrophils # Seg Neutrophils # Man Lymphocytes # (Manual) D-Dimer POC ABG pH POC ABG pCO2 POC ABG pO2 Sodium Potassium Chloride Carbon Dioxide BUN Creatinine 4.3 H Glucose POC Glucose Lactic Acid Calcium Phosphorus Iron TIBC Transferrin ALT < 5 L CK-MB (CK-2) CK-MB (CK-2) Rel Index Troponin T Serum Total Protein Total Protein 6.2 L Albumin 3.0 L [id number] PEP Interpretation Triglycerides Cholesterol LDL Cholesterol Direct PTH Intact Urine WBC (Auto) Urine Creatinine Salicylates Acetaminophen Crossmatch
--- NOTE | 2018-10-05 11:32 | Progress Note ---
Assessment and Plan Impression * ESRD--new onset --Status post right IJ Vas-Cath placement on 09/23/2018. * Acute hypoxic respiratory failure secondary to pneumonia plus /minus fluid overload * Metabolic acidosis -resolved * Hyperkalemia - resolved * Type II diabetes mellitus * Hypertension * renal mass * Proteinuria Recommendations * Hemodialysis continue MWF and prn schedule * UF as tolerated * will need outpatient hd placement * s/p perm cath placement * Avoid nephrotoxins * Monitor fluid status and electrolytes closely * follow up MRI without contrast for renal mass Subjective Date of service: 10/05/18 Principal diagnosis: acute respiratory failure, end-stage renal disease, AMS Interval history: resting well in bed today Objective - Exam Narrative Exam: HEENT: Oral mucosa moist Neck: Supple no JVD Chest: Clear to auscultation anteriorly Posteriorly has crackles in bases CVS: Regular rate and rhythm S1 and S2 heard Abdomen: Soft nontender no suprapubic masses no organomegaly appreciable Extremity: Dry skin less than 1+ peripheral edema Musculoskeletal: No joint effusion noted in knees and ankle Dermatology: No petechial rashes Psychiatry: No evidence of any agitation and aggression noted - Vital Signs Vital signs: Vital Signs - 12hr 10/05/18 10/05/18 10/05/18 03:00 03:27 07:17 Temperature 98.6 F Pulse Rate 111 H Pulse Rate [ 105 H From Monitor] Respiratory 18 18 Rate Blood Pressure 155/53 O2 Sat by Pulse 95 97 Oximetry - Lab 10/05/18 04:00 10/05/18 04:00 Most recent lab results Calcium 8.4 mg/dL (8.4-10.2) 10/05/18 04:00 Phosphorus 5.30 mg/dL (2.5-4.5) H 09/29/18 10:48 Urine Creatinine 80.7 mg/dL (0.1-20.0) H 09/23/18 16:00 Urine Sodium 66 mmol/L 09/23/18 16:00 Medications & Allergies - Medications Allergies/Adverse Reactions: Allergies codeine Adverse Reaction (Verified 09/23/18 10:09) Unknown Home Medications: Home Medications Medication Instructions Recorded Confirmed Last Taken Type ALBUTEROL NEB's [Proventil 0.083% 2.5 mg INHALATION Q6H PRN 09/25/18 09/25/18 Unknown History NEBS] Carvedilol 25 mg PO Q12H 09/25/18 09/25/18 Unknown History Clonidine 0.2 mg PO BID 09/25/18 09/25/18 Unknown History Doxazosin 2 mg PO DAILY 09/25/18 09/25/18 Unknown History Dss 100 mg PO BID 09/25/18 09/25/18 Unknown History Fluticasone [Flonase] 1 spray INNOSTRIL DAILY 09/25/18 09/25/18 Unknown History Insulin NPH/Regular [Novolin 70/30] 20 unit SQ DAILY 09/25/18 09/25/18 Unknown History Isosorbide Mononitrate 30 mg PO DAILY 09/25/18 09/25/18 Unknown History NIFEdipine [Nifedipine ER] 60 mg PO BID 09/25/18 09/25/18 Unknown History Sevelamer Carbonate 1 tab PO TID 09/25/18 09/25/18 Unknown History Simvastatin [Zocor] 1 tab PO DAILY 09/25/18 09/25/18 Unknown History Torsemide [Demadex] 0.5 tab PO DAILY 09/25/18 09/25/18 Unknown History hydrALAZINE 100 mg PO Q8H 09/25/18 09/25/18 Unknown History Active Medications: Generic Name Dose Route Start Last Admin Trade Name Freq PRN Reason Stop Dose Admin Acetaminophen 650 mg 09/22/18 04:14 09/26/18 03:56 Tylenol PO 650 mg Q4H PRN Administration Pain MILD(1-3)/Fever >100.5/MEJIA Lipase/Protease/Amylase 1 each 09/23/18 13:57 Pancreazdasha Bourgeois 10,500 Unit FEEDTUBE PRN PRN For Clogged Feeding Tube Clonidine HCl 0.2 mg 09/28/18 10:00 10/05/18 10:53 Catapres-Tts Patch TD Not Given Mae KAILA Dextrose 50 ml 09/22/18 04:14 D50w (25gm) Syringe IV PRN PRN Hypoglycemia Enoxaparin Sodium 30 mg 09/22/18 10:00 10/05/18 10:51 Lovenox SUB-Q 30 mg QDAY KAILA Administration Epinephrine 0.5 ml 09/25/18 12:52 10/01/18 00:13 S2 Racepinephrine 2.25% IH 0.5 ml Q4HRT PRN Administration stridor Famotidine 20 mg 09/29/18 10:00 10/05/18 10:51 Pepcid PO 20 mg DAILY KAILA Administration Haloperidol Lactate 5 mg 10/01/18 11:00 Haldol IV Q6H PRN Agitation Hydralazine HCl 10 mg 09/22/18 19:30 10/03/18 16:45 Apresoline IV 10 mg Q4HR PRN Administration SBP>160 Hydralazine HCl 50 mg 09/29/18 14:00 10/05/18 10:52 Apresoline PO 50 mg TID KAILA Administration Sodium Chloride 100 mls @ 999 mls/hr 09/29/18 09:26 Nacl 0.9% IV CAROLINE PRN Hypotension Insulin Glargine 5 units 09/28/18 22:00 10/04/18 22:11 Lantus SUB-Q 5 units QHS KAILA Administration Insulin Human Lispro 0 unit 09/22/18 06:00 10/05/18 05:58 Humalog SUB-Q Not Given Q6HR [facility] Protocol Lorazepam 1 mg 09/23/18 10:06 09/29/18 20:32 Ativan IV 1 mg Q4H PRN Administration Agitation Ondansetron HCl 4 mg 09/30/18 22:58 Zofran IV Q8H PRN Nausea And Vomiting Senna/Docusate Sodium 2 tab 09/30/18 12:00 10/05/18 10:51 Senokot S PO 2 tab BID KAILA Administration Simple Syrup 15 ml 09/23/18 13:57 Simple Syrup FEEDTUBE PRN PRN Hypoglycemia Simple Syrup 30 ml 09/23/18 13:57 Simple Syrup FEEDTUBE PRN PRN Hypoglycemia Sodium Bicarbonate 325 mg 09/23/18 13:57 Sodium Bicarbonate FEEDTUBE PRN PRN For Clogged Feeding Tube Sodium Chloride 10 ml 09/22/18 10:00 10/05/18 10:53 Sodium Chloride Flush Syringe 10 Ml IV 10 ml BID KAILA Administration Sodium Chloride 10 ml 09/22/18 04:14 10/03/18 16:46 Sodium Chloride Flush Syringe 10 Ml IV 10 ml PRN PRN Administration LINE FLUSH
[2018-10-05] MEDS: TYLENOL PO PRN (14:01)
[2018-10-05] MEDS: APRESOLINE IV PRN (14:12)
--- NOTE | 2018-10-05 21:54 | Progress Note ---
Assessment and Plan Acute respiratory failure. On [place] oxygen , no distress Post extubation stridor. Resolved AMS. Delirium.Improved, resolved End-stage renal disease Renal mass HTN CAD Obesity Recommendation Continue nebs prn for chest congestion OOB as tolerated Physical rehab BP management Renal mass w/up, HD per nephrology and hospital medicine Continue monitoring from Pulmonary standpoint Discussed with pt in detail Subjective Date of service: 10/05/18 Principal diagnosis: acute respiratory failure, end-stage renal disease, AMS Interval history: Some cough and sore throat today but no SOB. Family at the bedside Objective Vital Signs - 12hr 10/05/18 10/05/18 14:12 17:10 Temperature 98.5 F Pulse Rate 122 H Respiratory 20 Rate Blood Pressure 192/77 169/66 O2 Sat by Pulse 96 Oximetry Constitutional: no acute distress, alert Eyes: non-icteric ENT: oropharynx moist Neck: no JVD Effort: normal Ascultation: Bilateral: clear, diminished breath sounds Cardiovascular: regular rate and rhythm Gastrointestinal: normoactive bowel sounds, non-distended Integumentary: normal Extremities: no cyanosis, no edema Neurologic: normal mental status, non-focal exam, pupils equal and round, CN II- XII normal CBC and BMP: 10/05/18 04:00 10/05/18 04:00 ABG, PT/INR, D-dimer: ABG POC ABG pH 7.462 (7.35-7.45) H 10/01/18 09:21 POC ABG pCO2 42.5 (35-45) 10/01/18 09:21 POC ABG pO2 108 (80-105) H 10/01/18 09:21 POC ABG HCO3 30.4 10/01/18 09:21 POC ABG Total CO2 32 10/01/18 09:21 POC ABG O2 Sat 98 10/01/18 09:21 PT/INR, D-dimer D-Dimer 4401.15 ng/mlDDU (0-234) H 09/21/18 22:56 Abnormal lab findings: Abnormal Labs 09/21/18 09/21/18 09/21/18 22:56 22:56 22:56 WBC RBC 3.05 L Hgb 9.0 L Hct 26.9 L Lymph % (Auto) 9.3 L [place] % (Auto) Eos % (Auto) Lymph # 0.7 L [place] # Eos # Baso # Seg Neutrophils % 84.0 H Seg Neuts % (Manual) Lymphocytes % (Manual) Seg Neutrophils # Seg Neutrophils # Man Lymphocytes # (Manual) D-Dimer POC ABG pH POC ABG pCO2 POC ABG pO2 Sodium Potassium 5.2 H Chloride Carbon Dioxide 17 L BUN 53 H Creatinine 6.7 H Glucose 307 H POC Glucose Lactic Acid Calcium 8.2 L Phosphorus Iron TIBC Transferrin ALT CK-MB (CK-2) CK-MB (CK-2) Rel Index Troponin T Serum Total Protein Total Protein Albumin 3.6 L Pwrnd-6-Mpjrofmdr PEP Interpretation Triglycerides Cholesterol LDL Cholesterol Direct PTH Intact Urine WBC (Auto) Urine Creatinine Salicylates < 0.3 L Acetaminophen Crossmatch 09/21/18 09/21/18 09/21/18 22:56 22:56 22:56 WBC RBC Hgb Hct Lymph % (Auto) [place] % (Auto) Eos % (Auto) Lymph # [place] # Eos # Baso # Seg Neutrophils % Seg Neuts % (Manual) Lymphocytes % (Manual) Seg Neutrophils # Seg Neutrophils # Man Lymphocytes # (Manual) D-Dimer 4401.15 H POC ABG pH POC ABG pCO2 POC ABG pO2 Sodium Potassium Chloride Carbon Dioxide BUN Creatinine Glucose POC Glucose Lactic Acid 3.70 H* Calcium Phosphorus Iron TIBC Transferrin ALT CK-MB (CK-2) CK-MB (CK-2) Rel Index Troponin T Serum Total Protein Total Protein Albumin Wxngs-5-Ikjeyuven PEP Interpretation Triglycerides Cholesterol LDL Cholesterol Direct PTH Intact Urine WBC (Auto) Urine Creatinine Salicylates Acetaminophen < 5.0 L Crossmatch 09/21/18 09/21/18 09/22/18 23:14 23:57 00:48 WBC RBC Hgb Hct Lymph % (Auto) [place] % (Auto) Eos % (Auto) Lymph # [place] # Eos # Baso # Seg Neutrophils % Seg Neuts % (Manual) Lymphocytes % (Manual) Seg Neutrophils # Seg Neutrophils # Man Lymphocytes # (Manual) D-Dimer POC ABG pH 7.234 L 7.322 L POC ABG pCO2 POC ABG pO2 118 H 142 H Sodium Potassium Chloride Carbon Dioxide BUN Creatinine Glucose POC Glucose Lactic Acid Calcium Phosphorus Iron TIBC Transferrin ALT CK-MB (CK-2) CK-MB (CK-2) Rel Index Troponin T 0.062 H D Serum Total Protein Total Protein Albumin Vbpqd-7-Fzizenzgz PEP Interpretation Triglycerides 208 H Cholesterol 206 H LDL Cholesterol Direct 143 H PTH Intact Urine WBC (Auto) Urine Creatinine Salicylates Acetaminophen Crossmatch 09/22/18 09/22/18 09/22/18 04:50 05:03 06:43 WBC RBC Hgb Hct Lymph % (Auto) [place] % (Auto) Eos % (Auto) Lymph # [place] # Eos # Baso # Seg Neutrophils % Seg Neuts % (Manual) Lymphocytes % (Manual) Seg Neutrophils # Seg Neutrophils # Man Lymphocytes # (Manual) D-Dimer POC ABG pH 7.556 H POC ABG pCO2 22.4 L POC ABG pO2 176 H Sodium Potassium Chloride Carbon Dioxide BUN Creatinine Glucose POC Glucose 116 H Lactic Acid Calcium Phosphorus Iron TIBC Transferrin ALT CK-MB (CK-2) 4.1 H CK-MB (CK-2) Rel Index 4.7 H Troponin T 0.107 H* D Serum Total Protein Total Protein Albumin Aovrb-6-Oldiaocvi PEP Interpretation Triglycerides Cholesterol LDL Cholesterol Direct PTH Intact Urine WBC (Auto) Urine Creatinine Salicylates Acetaminophen Crossmatch 09/22/18 09/22/18 09/22/18 09:12 10:26 18:00 WBC RBC Hgb Hct Lymph % (Auto) [place] % (Auto) Eos % (Auto) Lymph # [place] # Eos # Baso # Seg Neutrophils % Seg Neuts % (Manual) Lymphocytes % (Manual) Seg Neutrophils # Seg Neutrophils # Man Lymphocytes # (Manual) D-Dimer POC ABG pH POC ABG pCO2 POC ABG pO2 Sodium Potassium Chloride Carbon Dioxide BUN Creatinine 6.7 H Glucose POC Glucose 124 H Lactic Acid Calcium Phosphorus Iron TIBC Transferrin ALT CK-MB (CK-2) CK-MB (CK-2) Rel Index Troponin T 0.074 H D Serum Total Protein Total Protein Albumin Cbkce-3-Pawvcygfq PEP Interpretation Triglycerides Cholesterol LDL Cholesterol Direct PTH Intact Urine WBC (Auto) Urine Creatinine Salicylates Acetaminophen Crossmatch 09/23/18 09/23/18 09/23/18 03:57 04:24 04:24 WBC RBC 2.85 L Hgb 8.0 L Hct 24.4 L Lymph % (Auto) [place] % (Auto) 12.6 H Eos % (Auto) Lymph # [place] # 1.1 H Eos # Baso # Seg Neutrophils % Seg Neuts % (Manual) Lymphocytes % (Manual) Seg Neutrophils # Seg Neutrophils # Man Lymphocytes # (Manual) D-Dimer POC ABG pH POC ABG pCO2 27.2 L POC ABG pO2 113 H Sodium Potassium Chloride 113.4 H Carbon Dioxide 19 L BUN 54 H Creatinine 7.0 H Glucose POC Glucose Lactic Acid Calcium 8.3 L Phosphorus Iron TIBC Transferrin ALT CK-MB (CK-2) CK-MB (CK-2) Rel Index Troponin T Serum Total Protein Total Protein Albumin Avibt-8-Kqewvzxnv PEP Interpretation Triglycerides Cholesterol LDL Cholesterol Direct PTH Intact Urine WBC (Auto) Urine Creatinine Salicylates Acetaminophen Crossmatch 09/23/18 09/23/18 09/23/18 05:32 16:00 16:00 WBC RBC Hgb Hct Lymph % (Auto) [place] % (Auto) Eos % (Auto) Lymph # [place] # Eos # Baso # Seg Neutrophils % Seg Neuts % (Manual) Lymphocytes % (Manual) Seg Neutrophils # Seg Neutrophils # Man Lymphocytes # (Manual) D-Dimer POC ABG pH POC ABG pCO2 POC ABG pO2 Sodium Potassium Chloride Carbon Dioxide BUN Creatinine Glucose POC Glucose Lactic Acid Calcium Phosphorus Iron TIBC Transferrin ALT CK-MB (CK-2) CK-MB (CK-2) Rel Index Troponin T Serum Total Protein 5.2 L Total Protein Albumin 2.5 L Ekbwv-0-Kjgvgibdy 0.4 H PEP Interpretation see below H Triglycerides Cholesterol LDL Cholesterol Direct PTH Intact Urine WBC (Auto) 13.0 H Urine Creatinine 80.7 H Salicylates Acetaminophen Crossmatch 09/23/18 09/23/18 09/24/18 18:47 23:53 04:28 WBC RBC 2.66 L Hgb 7.6 L Hct 22.5 L Lymph % (Auto) [place] % (Auto) Eos % (Auto) Lymph # [place] # Eos # Baso # Seg Neutrophils % Seg Neuts % (Manual) Lymphocytes % (Manual) Seg Neutrophils # Seg Neutrophils # Man Lymphocytes # (Manual) D-Dimer POC ABG pH POC ABG pCO2 POC ABG pO2 Sodium Potassium Chloride Carbon Dioxide BUN Creatinine Glucose POC Glucose 115 H 145 H Lactic Acid Calcium Phosphorus Iron TIBC Transferrin ALT CK-MB (CK-2) CK-MB (CK-2) Rel Index Troponin T Serum Total Protein Total Protein Albumin Rngba-2-Boirhaajx PEP Interpretation Triglycerides Cholesterol LDL Cholesterol Direct PTH Intact Urine WBC (Auto) Urine Creatinine Salicylates Acetaminophen Crossmatch 09/24/18 09/24/18 09/24/18 04:28 04:56 05:33 WBC RBC Hgb Hct Lymph % (Auto) [place] % (Auto) Eos % (Auto) Lymph # [place] # Eos # Baso # Seg Neutrophils % Seg Neuts % (Manual) Lymphocytes % (Manual) Seg Neutrophils # Seg Neutrophils # Man Lymphocytes # (Manual) D-Dimer POC ABG pH 7.551 H POC ABG pCO2 32.0 L POC ABG pO2 133 H Sodium Potassium Chloride Carbon Dioxide BUN 27 H Creatinine 4.8 H Glucose 129 H POC Glucose 127 H Lactic Acid Calcium 8.0 L Phosphorus Iron TIBC Transferrin ALT CK-MB (CK-2) CK-MB (CK-2) Rel Index Troponin T Serum Total Protein Total Protein Albumin Ygokf-9-Vmfwpsswe PEP Interpretation Triglycerides Cholesterol LDL Cholesterol Direct PTH Intact Urine WBC (Auto) Urine Creatinine Salicylates Acetaminophen Crossmatch 09/24/18 09/24/18 09/24/18 12:39 19:57 23:53 WBC RBC Hgb Hct Lymph % (Auto) [place] % (Auto) Eos % (Auto) Lymph # [place] # Eos # Baso # Seg Neutrophils % Seg Neuts % (Manual) Lymphocytes % (Manual) Seg Neutrophils # Seg Neutrophils # Man Lymphocytes # (Manual) D-Dimer POC ABG pH POC ABG pCO2 POC ABG pO2 Sodium Potassium Chloride Carbon Dioxide BUN Creatinine Glucose POC Glucose 171 H 209 H 158 H Lactic Acid Calcium Phosphorus Iron TIBC Transferrin ALT CK-MB (CK-2) CK-MB (CK-2) Rel Index Troponin T Serum Total Protein Total Protein Albumin Pzqwr-0-Hrikqkcto PEP Interpretation Triglycerides Cholesterol LDL Cholesterol Direct PTH Intact Urine WBC (Auto) Urine Creatinine Salicylates Acetaminophen Crossmatch 09/25/18 09/25/18 09/25/18 04:06 04:06 05:16 WBC RBC 2.73 L Hgb 7.9 L Hct 23.4 L Lymph % (Auto) [place] % (Auto) Eos % (Auto) Lymph # [place] # Eos # Baso # Seg Neutrophils % Seg Neuts % (Manual) Lymphocytes % (Manual) Seg Neutrophils # Seg Neutrophils # Man Lymphocytes # (Manual) D-Dimer POC ABG pH 7.477 H POC ABG pCO2 POC ABG pO2 122 H Sodium Potassium Chloride 97.2 L Carbon Dioxide BUN Creatinine 3.6 H Glucose 118 H POC Glucose Lactic Acid Calcium 8.2 L Phosphorus Iron TIBC Transferrin ALT CK-MB (CK-2) CK-MB (CK-2) Rel Index Troponin T Serum Total Protein Total Protein Albumin Ayeal-7-Pbiluebjo PEP Interpretation Triglycerides Cholesterol LDL Cholesterol Direct PTH Intact Urine WBC (Auto) Urine Creatinine Salicylates Acetaminophen Crossmatch 09/25/18 09/25/18 09/25/18 05:55 12:29 16:21 WBC RBC Hgb Hct Lymph % (Auto) [place] % (Auto) Eos % (Auto) Lymph # [place] # Eos # Baso # Seg Neutrophils % Seg Neuts % (Manual) Lymphocytes % (Manual) Seg Neutrophils # Seg Neutrophils # Man Lymphocytes # (Manual) D-Dimer POC ABG pH 7.216 L POC ABG pCO2 79.9 H POC ABG pO2 Sodium Potassium Chloride Carbon Dioxide BUN Creatinine Glucose POC Glucose 144 H 128 H Lactic Acid Calcium Phosphorus Iron TIBC Transferrin ALT CK-MB (CK-2) CK-MB (CK-2) Rel Index Troponin T Serum Total Protein Total Protein Albumin Dqhhc-0-Jmrddqxar PEP Interpretation Triglycerides Cholesterol LDL Cholesterol Direct PTH Intact Urine WBC (Auto) Urine Creatinine Salicylates Acetaminophen Crossmatch 09/25/18 09/25/18 09/25/18 18:27 18:44 23:56 WBC RBC Hgb Hct Lymph % (Auto) [place] % (Auto) Eos % (Auto) Lymph # [place] # Eos # Baso # Seg Neutrophils % Seg Neuts % (Manual) Lymphocytes % (Manual) Seg Neutrophils # Seg Neutrophils # Man Lymphocytes # (Manual) D-Dimer POC ABG pH POC ABG pCO2 53.2 H POC ABG pO2 78 L Sodium Potassium Chloride Carbon Dioxide BUN Creatinine Glucose POC Glucose 264 H 170 H Lactic Acid Calcium Phosphorus Iron TIBC Transferrin ALT CK-MB (CK-2) CK-MB (CK-2) Rel Index Troponin T Serum Total Protein Total Protein Albumin Oqllq-3-Chatosadd PEP Interpretation Triglycerides Cholesterol LDL Cholesterol Direct PTH Intact Urine WBC (Auto) Urine Creatinine Salicylates Acetaminophen Crossmatch 09/26/18 09/26/18 09/26/18 03:46 04:51 05:04 WBC RBC Hgb Hct Lymph % (Auto) [place] % (Auto) Eos % (Auto) Lymph # [place] # Eos # Baso # Seg Neutrophils % Seg Neuts % (Manual) Lymphocytes % (Manual) Seg Neutrophils # Seg Neutrophils # Man Lymphocytes # (Manual) D-Dimer POC ABG pH 7.584 H POC ABG pCO2 30.9 L POC ABG pO2 151 H Sodium Potassium Chloride 95.5 L Carbon Dioxide BUN 34 H Creatinine 5.4 H Glucose 185 H POC Glucose 186 H Lactic Acid Calcium Phosphorus Iron TIBC Transferrin ALT CK-MB (CK-2) CK-MB (CK-2) Rel Index Troponin T Serum Total Protein Total Protein Albumin Wsspq-1-Xyivnhfxz PEP Interpretation Triglycerides Cholesterol LDL Cholesterol Direct PTH Intact Urine WBC (Auto) Urine Creatinine Salicylates Acetaminophen Crossmatch 09/26/18 09/26/18 09/26/18 06:23 12:41 17:55 WBC RBC Hgb Hct Lymph % (Auto) [place] % (Auto) Eos % (Auto) Lymph # [place] # Eos # Baso # Seg Neutrophils % Seg Neuts % (Manual) Lymphocytes % (Manual) Seg Neutrophils # Seg Neutrophils # Man Lymphocytes # (Manual) D-Dimer POC ABG pH 7.330 L POC ABG pCO2 49.9 H POC ABG pO2 Sodium Potassium Chloride Carbon Dioxide BUN Creatinine Glucose POC Glucose 182 H 171 H Lactic Acid Calcium Phosphorus Iron TIBC Transferrin ALT CK-MB (CK-2) CK-MB (CK-2) Rel Index Troponin T Serum Total Protein Total Protein Albumin Jgmyq-4-Jyzgeiijo PEP Interpretation Triglycerides Cholesterol LDL Cholesterol Direct PTH Intact Urine WBC (Auto) Urine Creatinine Salicylates Acetaminophen Crossmatch 09/27/18 09/27/18 09/27/18 00:06 05:11 05:36 WBC RBC Hgb Hct Lymph % (Auto) [place] % (Auto) Eos % (Auto) Lymph # [place] # Eos # Baso # Seg Neutrophils % Seg Neuts % (Manual) Lymphocytes % (Manual) Seg Neutrophils # Seg Neutrophils # Man Lymphocytes # (Manual) D-Dimer POC ABG pH POC ABG pCO2 POC ABG pO2 136 H Sodium Potassium Chloride Carbon Dioxide BUN Creatinine Glucose POC Glucose 170 H 115 H Lactic Acid Calcium Phosphorus Iron TIBC Transferrin ALT CK-MB (CK-2) CK-MB (CK-2) Rel Index Troponin T Serum Total Protein Total Protein Albumin Tyzfo-6-Wnnvkqpsn PEP Interpretation Triglycerides Cholesterol LDL Cholesterol Direct PTH Intact Urine WBC (Auto) Urine Creatinine Salicylates Acetaminophen Crossmatch 09/27/18 09/27/18 09/27/18 06:05 11:51 18:17 WBC RBC Hgb Hct Lymph % (Auto) [place] % (Auto) Eos % (Auto) Lymph # [place] # Eos # Baso # Seg Neutrophils % Seg Neuts % (Manual) Lymphocytes % (Manual) Seg Neutrophils # Seg Neutrophils # Man Lymphocytes # (Manual) D-Dimer POC ABG pH POC ABG pCO2 POC ABG pO2 Sodium Potassium Chloride 95.0 L Carbon Dioxide BUN 39 H Creatinine 5.1 H Glucose 145 H POC Glucose 181 H 214 H Lactic Acid Calcium Phosphorus Iron TIBC Transferrin ALT CK-MB (CK-2) CK-MB (CK-2) Rel Index Troponin T Serum Total Protein Total Protein Albumin Nygdy-0-Woysxvcli PEP Interpretation Triglycerides Cholesterol LDL Cholesterol Direct PTH Intact Urine WBC (Auto) Urine Creatinine Salicylates Acetaminophen Crossmatch 09/27/18 09/28/18 09/28/18 23:28 04:39 04:44 WBC RBC Hgb Hct Lymph % (Auto) [place] % (Auto) Eos % (Auto) Lymph # [place] # Eos # Baso # Seg Neutrophils % Seg Neuts % (Manual) Lymphocytes % (Manual) Seg Neutrophils # Seg Neutrophils # Man Lymphocytes # (Manual) D-Dimer POC ABG pH POC ABG pCO2 POC ABG pO2 151 H Sodium 134 L Potassium Chloride 95.2 L Carbon Dioxide BUN 61 H Creatinine 7.2 H Glucose 165 H POC Glucose 127 H Lactic Acid Calcium 8.0 L Phosphorus Iron TIBC Transferrin ALT CK-MB (CK-2) CK-MB (CK-2) Rel Index Troponin T Serum Total Protein Total Protein Albumin Glwhz-0-Mswbcwqsh PEP Interpretation Triglycerides Cholesterol LDL Cholesterol Direct PTH Intact Urine WBC (Auto) Urine Creatinine Salicylates Acetaminophen Crossmatch 09/28/18 09/28/18 09/28/18 05:47 11:36 17:51 WBC RBC Hgb Hct Lymph % (Auto) [place] % (Auto) Eos % (Auto) Lymph # [place] # Eos # Baso # Seg Neutrophils % Seg Neuts % (Manual) Lymphocytes % (Manual) Seg Neutrophils # Seg Neutrophils # Man Lymphocytes # (Manual) D-Dimer POC ABG pH POC ABG pCO2 POC ABG pO2 Sodium Potassium Chloride Carbon Dioxide BUN Creatinine Glucose POC Glucose 159 H 240 H 268 H Lactic Acid Calcium Phosphorus Iron TIBC Transferrin ALT CK-MB (CK-2) CK-MB (CK-2) Rel Index Troponin T Serum Total Protein Total Protein Albumin Tmoxo-4-Xriubrrzu PEP Interpretation Triglycerides Cholesterol LDL Cholesterol Direct PTH Intact Urine WBC (Auto) Urine Creatinine Salicylates Acetaminophen Crossmatch 09/28/18 09/29/18 09/29/18 23:24 05:20 09:45 WBC RBC Hgb Hct Lymph % (Auto) [place] % (Auto) Eos % (Auto) Lymph # [place] # Eos # Baso # Seg Neutrophils % Seg Neuts % (Manual) Lymphocytes % (Manual) Seg Neutrophils # Seg Neutrophils # Man Lymphocytes # (Manual) D-Dimer POC ABG pH POC ABG pCO2 POC ABG pO2 56 L Sodium Potassium Chloride Carbon Dioxide BUN Creatinine Glucose POC Glucose 194 H 127 H Lactic Acid Calcium Phosphorus Iron TIBC Transferrin ALT CK-MB (CK-2) CK-MB (CK-2) Rel Index Troponin T Serum Total Protein Total Protein Albumin Kqdlw-6-Eeasanmrb PEP Interpretation Triglycerides Cholesterol LDL Cholesterol Direct PTH Intact Urine WBC (Auto) Urine Creatinine Salicylates Acetaminophen Crossmatch 09/29/18 09/29/18 09/29/18 09:54 10:48 10:48 WBC 14.5 H RBC 2.67 L Hgb 7.4 L Hct 22.6 L Lymph % (Auto) [place] % (Auto) Eos % (Auto) Lymph # [place] # Eos # Baso # Seg Neutrophils % Seg Neuts % (Manual) 90.0 H Lymphocytes % (Manual) 6.0 L Seg Neutrophils # Seg Neutrophils # Man 13.1 H Lymphocytes # (Manual) 0.9 L D-Dimer POC ABG pH POC ABG pCO2 POC ABG pO2 72 L Sodium Potassium Chloride Carbon Dioxide BUN Creatinine Glucose POC Glucose Lactic Acid Calcium Phosphorus 5.30 H Iron 15 L TIBC 146 L Transferrin 109 L ALT CK-MB (CK-2) CK-MB (CK-2) Rel Index Troponin T Serum Total Protein Total Protein Albumin Pohaf-6-Icwroqcjh PEP Interpretation Triglycerides Cholesterol LDL Cholesterol Direct PTH Intact Urine WBC (Auto) Urine Creatinine Salicylates Acetaminophen Crossmatch 09/29/18 09/29/18 09/29/18 10:48 12:24 18:25 WBC RBC Hgb Hct Lymph % (Auto) [place] % (Auto) Eos % (Auto) Lymph # [place] # Eos # Baso # Seg Neutrophils % Seg Neuts % (Manual) Lymphocytes % (Manual) Seg Neutrophils # Seg Neutrophils # Man Lymphocytes # (Manual) D-Dimer POC ABG pH POC ABG pCO2 POC ABG pO2 Sodium Potassium Chloride Carbon Dioxide BUN Creatinine Glucose POC Glucose 260 H 203 H Lactic Acid Calcium Phosphorus Iron TIBC Transferrin ALT CK-MB (CK-2) CK-MB (CK-2) Rel Index Troponin T Serum Total Protein Total Protein Albumin Izyyq-6-Gvrdfqwzv PEP Interpretation Triglycerides Cholesterol LDL Cholesterol Direct PTH Intact 417.9 H Urine WBC (Auto) Urine Creatinine Salicylates Acetaminophen Crossmatch 09/30/18 09/30/18 09/30/18 00:14 05:12 12:06 WBC RBC Hgb Hct Lymph % (Auto) [place] % (Auto) Eos % (Auto) Lymph # [place] # Eos # Baso # Seg Neutrophils % Seg Neuts % (Manual) Lymphocytes % (Manual) Seg Neutrophils # Seg Neutrophils # Man Lymphocytes # (Manual) D-Dimer POC ABG pH POC ABG pCO2 POC ABG pO2 Sodium Potassium Chloride Carbon Dioxide BUN Creatinine Glucose POC Glucose 260 H 136 H 193 H Lactic Acid Calcium Phosphorus Iron TIBC Transferrin ALT CK-MB (CK-2) CK-MB (CK-2) Rel Index Troponin T Serum Total Protein Total Protein Albumin Jnjex-4-Kmdvrjrhg PEP Interpretation Triglycerides Cholesterol LDL Cholesterol Direct PTH Intact Urine WBC (Auto) Urine Creatinine Salicylates Acetaminophen Crossmatch 09/30/18 09/30/18 10/01/18 17:23 23:29 05:48 WBC 16.4 H RBC 2.55 L Hgb 7.1 L Hct 21.9 L Lymph % (Auto) [place] % (Auto) Eos % (Auto) Lymph # [place] # Eos # Baso # Seg Neutrophils % Seg Neuts % (Manual) Lymphocytes % (Manual) Seg Neutrophils # Seg Neutrophils # Man Lymphocytes # (Manual) D-Dimer POC ABG pH POC ABG pCO2 POC ABG pO2 Sodium Potassium Chloride Carbon Dioxide BUN Creatinine Glucose POC Glucose 119 H 159 H Lactic Acid Calcium Phosphorus Iron TIBC Transferrin ALT CK-MB (CK-2) CK-MB (CK-2) Rel Index Troponin T Serum Total Protein Total Protein Albumin Yzewb-1-Ddnaiccvx PEP Interpretation Triglycerides Cholesterol LDL Cholesterol Direct PTH Intact Urine WBC (Auto) Urine Creatinine Salicylates Acetaminophen Crossmatch 10/01/18 10/01/18 10/01/18 05:48 09:21 10:47 WBC RBC Hgb Hct Lymph % (Auto) [place] % (Auto) Eos % (Auto) Lymph # [place] # Eos # Baso # Seg Neutrophils % Seg Neuts % (Manual) Lymphocytes % (Manual) Seg Neutrophils # Seg Neutrophils # Man Lymphocytes # (Manual) D-Dimer POC ABG pH 7.462 H POC ABG pCO2 POC ABG pO2 108 H Sodium Potassium Chloride 95.6 L Carbon Dioxide BUN 53 H Creatinine 6.5 H Glucose POC Glucose Lactic Acid Calcium Phosphorus Iron TIBC Transferrin ALT CK-MB (CK-2) CK-MB (CK-2) Rel Index Troponin T Serum Total Protein Total Protein Albumin Chvxf-5-Zefviozie PEP Interpretation Triglycerides Cholesterol LDL Cholesterol Direct PTH Intact Urine WBC (Auto) Urine Creatinine Salicylates Acetaminophen Crossmatch See Detail 10/01/18 10/01/18 10/02/18 18:36 23:00 05:06 WBC RBC Hgb Hct Lymph % (Auto) [place] % (Auto) Eos % (Auto) Lymph # [place] # Eos # Baso # Seg Neutrophils % Seg Neuts % (Manual) Lymphocytes % (Manual) Seg Neutrophils # Seg Neutrophils # Man Lymphocytes # (Manual) D-Dimer POC ABG pH POC ABG pCO2 POC ABG pO2 Sodium Potassium Chloride Carbon Dioxide BUN Creatinine Glucose POC Glucose 123 H 128 H 177 H Lactic Acid Calcium Phosphorus Iron TIBC Transferrin ALT CK-MB (CK-2) CK-MB (CK-2) Rel Index Troponin T Serum Total Protein Total Protein Albumin Rikda-9-Fymajptii PEP Interpretation Triglycerides Cholesterol LDL Cholesterol Direct PTH Intact Urine WBC (Auto) Urine Creatinine Salicylates Acetaminophen Crossmatch 10/02/18 10/02/18 10/02/18 12:18 17:48 23:17 WBC RBC Hgb Hct Lymph % (Auto) [place] % (Auto) Eos % (Auto) Lymph # [place] # Eos # Baso # Seg Neutrophils % Seg Neuts % (Manual) Lymphocytes % (Manual) Seg Neutrophils # Seg Neutrophils # Man Lymphocytes # (Manual) D-Dimer POC ABG pH POC ABG pCO2 POC ABG pO2 Sodium Potassium Chloride Carbon Dioxide BUN Creatinine Glucose POC Glucose 145 H 173 H 106 H Lactic Acid Calcium Phosphorus Iron TIBC Transferrin ALT CK-MB (CK-2) CK-MB (CK-2) Rel Index Troponin T Serum Total Protein Total Protein Albumin Qscgi-5-Cllidwxsu PEP Interpretation Triglycerides Cholesterol LDL Cholesterol Direct PTH Intact Urine WBC (Auto) Urine Creatinine Salicylates Acetaminophen Crossmatch 10/03/18 10/03/18 10/03/18 03:25 03:25 07:10 WBC RBC 3.45 L Hgb 9.8 L Hct 29.1 L D Lymph % (Auto) [place] % (Auto) Eos % (Auto) Lymph # [place] # Eos # Baso # Seg Neutrophils % Seg Neuts % (Manual) Lymphocytes % (Manual) Seg Neutrophils # Seg Neutrophils # Man Lymphocytes # (Manual) D-Dimer POC ABG pH POC ABG pCO2 POC ABG pO2 Sodium Potassium Chloride 94.4 L Carbon Dioxide BUN 39 H Creatinine 6.0 H Glucose 130 H POC Glucose 141 H Lactic Acid Calcium Phosphorus Iron TIBC Transferrin ALT CK-MB (CK-2) CK-MB (CK-2) Rel Index Troponin T Serum Total Protein Total Protein Albumin Lfpen-1-Jkpzdkndy PEP Interpretation Triglycerides Cholesterol LDL Cholesterol Direct PTH Intact Urine WBC (Auto) Urine Creatinine Salicylates Acetaminophen Crossmatch 10/03/18 10/03/18 10/03/18 12:16 18:36 21:21 WBC RBC Hgb Hct Lymph % (Auto) [place] % (Auto) Eos % (Auto) Lymph # [place] # Eos # Baso # Seg Neutrophils % Seg Neuts % (Manual) Lymphocytes % (Manual) Seg Neutrophils # Seg Neutrophils # Man Lymphocytes # (Manual) D-Dimer POC ABG pH POC ABG pCO2 POC ABG pO2 Sodium Potassium Chloride Carbon Dioxide BUN Creatinine Glucose POC Glucose 146 H 267 H 235 H Lactic Acid Calcium Phosphorus Iron TIBC Transferrin ALT CK-MB (CK-2) CK-MB (CK-2) Rel Index Troponin T Serum Total Protein Total Protein Albumin Ngkbz-7-Wauxxcmco PEP Interpretation Triglycerides Cholesterol LDL Cholesterol Direct PTH Intact Urine WBC (Auto) Urine Creatinine Salicylates Acetaminophen Crossmatch 10/03/18 10/04/18 10/04/18 23:52 00:44 00:44 WBC 11.8 H RBC 3.23 L Hgb 9.0 L Hct 27.7 L Lymph % (Auto) [place] % (Auto) Eos % (Auto) Lymph # [place] # Eos # Baso # Seg Neutrophils % Seg Neuts % (Manual) Lymphocytes % (Manual) Seg Neutrophils # Seg Neutrophils # Man Lymphocytes # (Manual) D-Dimer POC ABG pH POC ABG pCO2 POC ABG pO2 Sodium 136 L Potassium Chloride 94.8 L Carbon Dioxide BUN 47 H Creatinine 7.6 H Glucose 182 H POC Glucose 197 H Lactic Acid Calcium Phosphorus Iron TIBC Transferrin ALT CK-MB (CK-2) CK-MB (CK-2) Rel Index Troponin T Serum Total Protein Total Protein Albumin [id number] PEP Interpretation Triglycerides Cholesterol LDL Cholesterol Direct PTH Intact Urine WBC (Auto) Urine Creatinine Salicylates Acetaminophen Crossmatch 10/04/18 10/04/18 10/05/18 06:33 17:33 04:00 WBC 11.9 H RBC 2.86 L Hgb 8.1 L Hct 24.4 L Lymph % (Auto) [place] % (Auto) 12.0 H Eos % (Auto) 4.9 H Lymph # [place] # 1.4 H Eos # 0.6 H Baso # 0.2 H Seg Neutrophils % Seg Neuts % (Manual) Lymphocytes % (Manual) Seg Neutrophils # 8.0 H Seg Neutrophils # Man Lymphocytes # (Manual) D-Dimer POC ABG pH POC ABG pCO2 POC ABG pO2 Sodium Potassium Chloride Carbon Dioxide BUN Creatinine Glucose POC Glucose 138 H 144 H Lactic Acid Calcium Phosphorus Iron TIBC Transferrin ALT CK-MB (CK-2) CK-MB (CK-2) Rel Index Troponin T Serum Total Protein Total Protein Albumin [id number] PEP Interpretation Triglycerides Cholesterol LDL Cholesterol Direct PTH Intact Urine WBC (Auto) Urine Creatinine Salicylates Acetaminophen Crossmatch 10/05/18 10/05/18 04:00 14:09 WBC RBC Hgb Hct Lymph % (Auto) [place] % (Auto) Eos % (Auto) Lymph # [place] # Eos # Baso # Seg Neutrophils % Seg Neuts % (Manual) Lymphocytes % (Manual) Seg Neutrophils # Seg Neutrophils # Man Lymphocytes # (Manual) D-Dimer POC ABG pH POC ABG pCO2 POC ABG pO2 Sodium Potassium Chloride Carbon Dioxide BUN Creatinine 4.3 H Glucose POC Glucose 120 H Lactic Acid Calcium Phosphorus Iron TIBC Transferrin ALT < 5 L CK-MB (CK-2) CK-MB (CK-2) Rel Index Troponin T Serum Total Protein Total Protein 6.2 L Albumin 3.0 L [id number] PEP Interpretation Triglycerides Cholesterol LDL Cholesterol Direct PTH Intact Urine WBC (Auto) Urine Creatinine Salicylates Acetaminophen Crossmatch
[2018-10-05] MEDS: CATAPRES PO SCH (22:03)
[2018-10-05] MEDS: COREG PO SCH (23:04)
[2018-10-05] MEDS: LANTUS SUB-Q SCH (23:07)
[2018-10-05] MEDS: PRAVACHOL PO SCH (23:19)
[2018-10-05] MEDS: ZOFRAN IV PRN (23:20)
[2018-10-06] MEDS: HumaLOG SUB-Q SCH ×4 (00:17→18:12)
[2018-10-06] MEDS: APRESOLINE PO SCH ×3 (08:00→21:21)
[2018-10-06 08:16] LABS: Basophils # (Auto) 0.1 K/mm3 (0.0-0.1); Basophils % (Auto) 1.1 % (0.0-1.8); Eosinophils # (Auto) 0.7 K/mm3 (0.0-0.4); Eosinophils % (Auto) 5.3 % (0.0-4.3); Hematocrit 27.5 % (30.3-42.9); Lymphocytes # (Auto) 1.5 K/mm3 (1.2-5.4); Lymphocytes % (Auto) 12.4 % (13.4-35.0); Mean Corpuscular HGB Conc 33 % (30-34); Mean Corpuscular Volume 87 fl (79-97); Monocytes # (Auto) 1.2 K/mm3 (0.0-0.8); Monocytes % (Auto) 9.4 % (0.0-7.3); Platelet Count 253 K/mm3 (140-440); Red Blood Count 3.18 M/mm3 (3.65-5.03); Red Cell Distribution Width 14.7 % (13.2-15.2)
[2018-10-06 08:38] LABS: Albumin 3.3 g/dL (3.9-5); BUN/Creatinine Ratio 4; Blood Urea Nitrogen 26 mg/dL (7-17); Calcium 8.9 mg/dL (8.4-10.2); Hemolysis Index 42
[2018-10-06 08:40] LABS: Alanine Aminotransferase < 5 units/L (7-56)
--- NOTE | 2018-10-06 09:37 | Progress Note ---
Assessment and Plan ESRD new on HD on MWF Nephrology following Awaiting out pt HD placement DM II Continue meds Acute Physical debility PT eval if not already done HTN continue meds Acute Hypoxic resp failure 2/2 Volume overlaod s/p extubation pulm on board Suspect Aspiration continue IV abx aspiration precautions at all times s/p acute respiratory failure. Extubated from [facility] Now on o2 vis [place] Disposition Plan: DC home once out-pt dialysis placement is secure Total Time Spent with Patient (Minutes): 30 mins Subjective Date of service: 10/06/18 Principal diagnosis: acute respiratory failure, end-stage renal disease, AMS Interval history: No new complain. No distress. Remains afebrile Objective - Exam Narrative Exam: Constitutional: Well-nourished well-developed. In no distress Head: Normocephalic atraumatic Eyes: Pupils are equal round and reactive to light Nose: No enlarged turbinates, no septal deviation. Mouth: Moist mucous membranes. Neck: Supple no thyromegaly. No bruit. No JVD Right IJ Vas cath Heart: Regular rate and rhythm, S1-S2 normal. No rubs murmurs or gallop Lungs: Clear to auscultation bilaterally. no rales or rhonchi Abdomen: Soft, nontender. Bowel sound are present. Extremities: No edema, no cyanosis, no clubbing. Neuro: Alert oriented Oriented x3. No focal sensory or motor deficit. Skin: No rashes or hyperpigmented spots Musculoskeletal system: No joint pain or swelling Hematological: No petechia or subcutanous hemorrhages. Immunological: No multiple septic spots on the skin Lymphatic: No generalized lymphadenopathy Psychiatry: Euthymic. Calm. - Constitutional Vitals: Vital Signs - 12hr 10/05/18 10/05/18 10/05/18 22:00 22:03 23:04 Temperature Pulse Rate 88 88 Respiratory 20 Rate Blood Pressure 184/77 184/77 O2 Sat by Pulse 98 Oximetry 10/06/18 10/06/18 01:54 08:03 Temperature 98.5 F 98.9 F Pulse Rate 107 H 115 H Respiratory 20 18 Rate Blood Pressure 179/84 183/98 O2 Sat by Pulse 97 96 Oximetry - Labs CBC & Chem 7: 10/06/18 07:58 10/06/18 07:58 Labs: Abnormal lab results 10/05/18 10/05/1810/06/19 Range/Units 14:09 21:53 07:58 WBC 12.4 H (4.5-11.0) K/mm3 RBC 3.18 L (3.65-5.03) M/mm3 Hgb 9.0 L (10.1-14.3) gm/dl Hct 27.5 L (30.3-42.9) % Lymph % (Auto) 12.4 L (13.4-35.0) % [place] % (Auto) 9.4 H (0.0-7.3) % Eos % (Auto) 5.3 H (0.0-4.3) % [place] # 1.2 H (0.0-0.8) K/mm3 Eos # 0.7 H (0.0-0.4) K/mm3 Seg Neutrophils % 71.8 H (40.0-70.0) % Seg Neutrophils # 8.9 H (1.8-7.7) K/mm3 BUN (7-17) mg/dL Creatinine (0.7-1.2) mg/dL POC Glucose 120 H 174 H (70-105) ALT (7-56) units/L Albumin (3.9-5) g/dL 10/06/18 Range/Units 07:58 WBC (4.5-11.0) K/mm3 RBC (3.65-5.03) M/mm3 Hgb (10.1-14.3) gm/dl Hct (30.3-42.9) % Lymph % (Auto) (13.4-35.0) % [place] % (Auto) (0.0-7.3) % Eos % (Auto) (0.0-4.3) % [place] # (0.0-0.8) K/mm3 Eos # (0.0-0.4) K/mm3 Seg Neutrophils % (40.0-70.0) % Seg Neutrophils # (1.8-7.7) K/mm3 BUN 26 H (7-17) mg/dL Creatinine 6.7 H D (0.7-1.2) mg/dL POC Glucose (70-105) ALT < 5 L (7-56) units/L Albumin 3.3 L (3.9-5) g/dL
--- NOTE | 2018-10-06 09:47 | Progress Note ---
Assessment and Plan Impression * ESRD--new onset --Status post right IJ Vas-Cath placement on 09/23/2018. * Acute hypoxic respiratory failure secondary to pneumonia plus /minus fluid overload * Metabolic acidosis -resolved * Hyperkalemia - resolved * Type II diabetes mellitus * Hypertension * renal mass * Proteinuria Recommendations * Hemodialysis continue MWF and prn schedule * UF as tolerated * will need outpatient hd placement * s/p perm cath placement * Avoid nephrotoxins * Monitor fluid status and electrolytes closely * follow up MRI without contrast for renal mass Subjective Date of service: 10/06/18 Principal diagnosis: acute respiratory failure, end-stage renal disease, AMS Interval history: resting well in bed today Objective - Exam Narrative Exam: HEENT: Oral mucosa moist Neck: Supple no JVD Chest: Clear to auscultation anteriorly Posteriorly has crackles in bases CVS: Regular rate and rhythm S1 and S2 heard Abdomen: Soft nontender no suprapubic masses no organomegaly appreciable Extremity: Dry skin less than 1+ peripheral edema Musculoskeletal: No joint effusion noted in knees and ankle Dermatology: No petechial rashes Psychiatry: No evidence of any agitation and aggression noted - Vital Signs Vital signs: Vital Signs - 12hr 10/05/18 10/05/18 10/05/18 22:00 22:03 23:04 Temperature Pulse Rate 88 88 Respiratory 20 Rate Blood Pressure 184/77 184/77 O2 Sat by Pulse 98 Oximetry 10/06/18 10/06/18 01:54 08:03 Temperature 98.5 F 98.9 F Pulse Rate 107 H 115 H Respiratory 20 18 Rate Blood Pressure 179/84 183/98 O2 Sat by Pulse 97 96 Oximetry - Lab 10/06/18 07:58 10/06/18 07:58 Most recent lab results Calcium 8.9 mg/dL (8.4-10.2) 10/06/18 07:58 Phosphorus 5.30 mg/dL (2.5-4.5) H 09/29/18 10:48 Urine Creatinine 80.7 mg/dL (0.1-20.0) H 09/23/18 16:00 Urine Sodium 66 mmol/L 09/23/18 16:00 Medications & Allergies - Medications Allergies/Adverse Reactions: Allergies codeine Adverse Reaction (Verified 09/23/18 10:09) Unknown Home Medications: Home Medications Medication Instructions Recorded Confirmed Last Taken Type ALBUTEROL NEB's [Proventil 0.083% 2.5 mg INHALATION Q6H PRN 09/25/18 09/25/18 Unknown History NEBS] Carvedilol 25 mg PO Q12H 09/25/18 09/25/18 Unknown History Clonidine 0.2 mg PO BID 09/25/18 09/25/18 Unknown History Doxazosin 2 mg PO DAILY 09/25/18 09/25/18 Unknown History Dss 100 mg PO BID 09/25/18 09/25/18 Unknown History Fluticasone [Flonase] 1 spray INNOSTRIL DAILY 09/25/18 09/25/18 Unknown History Insulin NPH/Regular [Novolin 70/30] 20 unit SQ DAILY 09/25/18 09/25/18 Unknown History Isosorbide Mononitrate 30 mg PO DAILY 09/25/18 09/25/18 Unknown History NIFEdipine [Nifedipine ER] 60 mg PO BID 09/25/18 09/25/18 Unknown History Sevelamer Carbonate 1 tab PO TID 09/25/18 09/25/18 Unknown History Simvastatin [Zocor] 1 tab PO DAILY 09/25/18 09/25/18 Unknown History Torsemide [Demadex] 0.5 tab PO DAILY 09/25/18 09/25/18 Unknown History hydrALAZINE 100 mg PO Q8H 09/25/18 09/25/18 Unknown History Active Medications: Generic Name Dose Route Start Last Admin Trade Name Freq PRN Reason Stop Dose Admin Acetaminophen 650 mg 09/22/18 04:14 10/05/18 14:01 Tylenol PO 650 mg Q4H PRN Administration Pain MILD(1-3)/Fever >100.5/MEJIA Lipase/Protease/Amylase 1 each 09/23/18 13:57 Pancreaze 10,500 Unit FEEDTUBE PRN PRN For Clogged Feeding Tube Carvedilol 25 mg 10/05/18 22:00 10/05/18 23:04 Coreg PO 25 mg BID KAILA Administration Clonidine HCl 0.2 mg 10/05/18 22:00 10/05/18 22:03 Catapres PO 0.2 mg Q12HR KAILA Administration Dextrose 50 ml 09/22/18 04:14 D50w (25gm) Syringe IV PRN PRN Hypoglycemia Doxazosin Mesylate 2 mg 10/06/18 10:00 Cardura PO QDAY KAILA Enoxaparin Sodium 30 mg 09/22/18 10:00 10/05/18 10:51 Lovenox SUB-Q 30 mg QDAY [facility] Administration Epinephrine 0.5 ml 09/25/18 12:52 10/01/18 00:13 S2 Racepinephrine 2.25% IH 0.5 ml Q4HRT PRN Administration stridor Famotidine 20 mg 09/29/18 10:00 10/05/18 10:51 Pepcid PO 20 mg DAILY [facility] Administration Haloperidol Lactate 5 mg 10/01/18 11:00 Haldol IV Q6H PRN Agitation Hydralazine HCl 10 mg 09/22/18 19:30 10/05/18 14:12 Apresoline IV 10 mg Q4HR PRN Administration SBP>160 Hydralazine HCl 50 mg 09/29/18 14:00 10/05/18 23:03 Apresoline PO 50 mg TID [facility] Administration Sodium Chloride 100 mls @ 999 mls/hr 09/29/18 09:26 Nacl 0.9% IV CAROLINE PRN Hypotension Insulin Glargine 5 units 09/28/18 22:00 10/05/18 23:07 Lantus SUB-Q 5 units QHS [facility] Administration Insulin Human Lispro 0 unit 09/22/18 06:00 10/06/18 06:56 Humalog SUB-Q Not Given Q6HR [facility] Protocol Isosorbide Mononitrate 30 mg 10/06/18 10:00 Imdur PO QDAY [facility] Lorazepam 1 mg 09/23/18 10:06 09/29/18 20:32 Ativan IV 1 mg Q4H PRN Administration Agitation Ondansetron HCl 4 mg 09/30/18 22:58 10/05/18 23:20 Zofran IV 4 mg Q8H PRN Administration Nausea And Vomiting Pravastatin Sodium 20 mg 10/05/18 22:00 10/05/18 23:19 Pravachol PO 20 mg QHS [facility] Administration Senna/Docusate Sodium 2 tab 09/30/18 12:00 10/05/18 23:05 Senokot S PO Not Given BID KAILA Simple Syrup 15 ml 09/23/18 13:57 Simple Syrup FEEDTUBE PRN PRN Hypoglycemia Simple Syrup 30 ml 09/23/18 13:57 Simple Syrup FEEDTUBE PRN PRN Hypoglycemia Sodium Bicarbonate 325 mg 09/23/18 13:57 Sodium Bicarbonate FEEDTUBE PRN PRN For Clogged Feeding Tube Sodium Chloride 10 ml 09/22/18 10:00 10/05/18 23:05 Sodium Chloride Flush Syringe 10 Ml IV 10 ml BID KAILA Administration Sodium Chloride 10 ml 09/22/18 04:14 10/03/18 16:46 Sodium Chloride Flush Syringe 10 Ml IV 10 ml PRN PRN Administration LINE FLUSH
[2018-10-06] MEDS: COREG PO SCH ×2 (10:13→21:22)
[2018-10-06] MEDS: CATAPRES PO SCH ×2 (10:13→21:22)
[2018-10-06] MEDS: CARDURA PO SCH (10:13)
[2018-10-06] MEDS: LOVENOX SUB-Q SCH (10:14)
[2018-10-06] MEDS: IMDUR PO SCH (10:14)
[2018-10-06] MEDS: SODIUM CHLORIDE FLUSH SYRINGE 10 ML IV SCH ×2 (10:15→21:23)
[2018-10-06] MEDS: SENOKOT S PO SCH ×2 (10:15→21:22)
[2018-10-06] MEDS: PEPCID PO SCH (10:15)
--- NOTE | 2018-10-06 12:17 | Magnetic Resonance Report ---
MR ABDOMEN WITHOUT CONTRAST MR PELVIS WITHOUT CONTRAST History: Renal mass Technique: Multiple T1 and T2-weighted images with and without fat suppression. Findings: Correlation is made with the renal ultrasound dated 09/29/18. Both kidneys are borderline atrophic measuring 9 cm in length. There are a few scattered simple cysts in both kidneys measuring up to 1 cm. There is a complex partially solid, partially cystic mass at the inferior pole of the left kidney measuring 3.4 x 3.6 x 3.9 cm. This does not have the appearance of a simple cyst. Renal neoplasm is suspected until proven otherwise. The bilateral renal veins are patent. No retroperitoneal adenopathy is detected. Signal characteristics of the liver, biliary system, pancreas, spleen and adrenal glands are within normal limits. Hysterectomy changes are suspected. No pelvic cysts, mass or fluid collection. The bladder is empty and grossly normal. No pelvic adenopathy or bony lesion. IMPRESSION: Complex mass at the inferior pole left kidney as outlined above. This exam is limited without IV contrast, renal neoplasm is suspected until proven otherwise.
[2018-10-06] MEDS ORDERED: NACL 0.9 (PRIMING MACHINE ONLY DIALYSIS) MC ONE (13:27)
--- NOTE | 2018-10-06 19:56 | Progress Note ---
Assessment and Plan Imp: 1. Pulm edema on admit, resolved 2. Acute respiratory failure, hypoxia, resolved 3. ESRD 4. Renal mass Rec: 1. Doing well pulm-rivera and can be discharged from our standpoint; we will sign off; please call with questions, or if new issues arise Plan of care reviewed w/ patient, she understands/agrees Subjective Date of service: 10/06/18 Principal diagnosis: acute respiratory failure, end-stage renal disease, AMS Interval history: No events. No complaints of SOB. On RA. Still with some sore throat from prior intubation. Active Medications Acetaminophen (Tylenol) 650 mg PO Q4H PRN PRN Reason: Pain MILD(1-3)/Fever >100.5/MEJIA Last Admin: 10/05/18 14:01 Dose: 650 mg Documented by: Lipase/Protease/Amylase (Abbie Bourgeois 10,500 Unit) 1 each FEEDTUBE PRN PRN PRN Reason: For Clogged Feeding Tube Carvedilol (Coreg) 25 mg PO BID [facility] Last Admin: 10/06/18 10:13 Dose: Not Given Documented by: Clonidine HCl (Catapres) 0.2 mg PO Q12HR [facility] Last Admin: 10/06/18 10:13 Dose: Not Given Documented by: Dextrose (D50w (25gm) Syringe) 50 ml IV PRN PRN PRN Reason: Hypoglycemia Doxazosin Mesylate (Cardura) 2 mg PO QDAY [facility] Last Admin: 10/06/18 10:13 Dose: Not Given Documented by: Enoxaparin Sodium (Lovenox) 30 mg SUB-Q QDAY [facility] Last Admin: 10/06/18 10:14 Dose: Not Given Documented by: Epinephrine (S2 Racepinephrine 2.25%) 0.5 ml IH Q4HRT PRN PRN Reason: stridor Last Admin: 10/01/18 00:13 Dose: 0.5 ml Documented by: Famotidine (Pepcid) 20 mg PO DAILY [facility] Last Admin: 10/06/18 10:15 Dose: Not Given Documented by: Haloperidol Lactate (Haldol) 5 mg IV Q6H PRN PRN Reason: Agitation Hydralazine HCl (Apresoline) 10 mg IV Q4HR PRN PRN Reason: SBP>160 Last Admin: 02/17/19 14:12 Dose: 10 mg Documented by: Hydralazine HCl (Apresoline) 50 mg PO TID [facility] Last Admin: 10/06/18 18:13 Dose: 50 mg Documented by: Sodium Chloride (Nacl 0.9%) 100 mls @ 999 mls/hr IV CAROLINE PRN PRN Reason: Hypotension Insulin Glargine (Lantus) 5 units SUB-Q QHS [facility] Last Admin: 10/05/18 23:07 Dose: 5 units Documented by: Insulin Human Lispro (Humalog) 0 unit SUB-Q Q6HR [facility]; Protocol Last Admin: 10/06/18 18:12 Dose: 2 unit Documented by: Isosorbide Mononitrate (Imdur) 30 mg PO QDAY [facility] Last Admin: 10/06/18 10:14 Dose: Not Given Documented by: Lorazepam (Ativan) 1 mg IV Q4H PRN PRN Reason: Agitation Last Admin: 09/29/18 20:32 Dose: 1 mg Documented by: Ondansetron HCl (Zofran) 4 mg IV Q8H PRN PRN Reason: Nausea And Vomiting Last Admin: 10/05/18 23:20 Dose: 4 mg Documented by: Pravastatin Sodium (Pravachol) 20 mg PO QHS [facility] Last Admin: 10/05/18 23:19 Dose: 20 mg Documented by: Senna/Docusate Sodium (Senokot S) 2 tab PO BID [facility] Last Admin: 10/06/18 10:15 Dose: Not Given Documented by: Simple Syrup (Simple Syrup) 15 ml FEEDTUBE PRN PRN PRN Reason: Hypoglycemia Simple Syrup (Simple Syrup) 30 ml FEEDTUBE PRN PRN PRN Reason: Hypoglycemia Sodium Bicarbonate (Sodium Bicarbonate) 325 mg FEEDTUBE PRN PRN PRN Reason: For Clogged Feeding Tube Sodium Chloride (Sodium Chloride Flush Syringe 10 Ml) 10 ml IV BID [facility] Last Admin: 10/06/18 10:15 Dose: Not Given Documented by: Sodium Chloride (Sodium Chloride Flush Syringe 10 Ml) 10 ml IV PRN PRN PRN Reason: LINE FLUSH Last Admin: 10/03/18 16:46 Dose: 10 ml Documented by: Objective Vital Signs - 12hr 10/06/18 10/06/18 10/06/18 08:03 10:00 10:15 Temperature 98.9 F 98.2 F Pulse Rate 115 H 94 H 111 H Respiratory 18 18 Rate Blood Pressure 183/98 184/76 184/90 O2 Sat by Pulse 96 Oximetry 10/06/18 10/06/18 10/06/18 10:30 10:45 11:00 Temperature Pulse Rate 100 H 105 H 111 H Respiratory Rate Blood Pressure 185/95 175/77 184/91 O2 Sat by Pulse Oximetry 10/06/18 10/06/18 10/06/18 11:15 11:30 11:45 Temperature Pulse Rate 107 H 107 H 106 H Respiratory Rate Blood Pressure 184/90 193/90 190/94 O2 Sat by Pulse Oximetry 10/06/18 10/06/18 10/06/18 12:00 12:15 12:30 Temperature Pulse Rate 117 H 107 H 108 H Respiratory Rate Blood Pressure 198/104 192/97 194/99 O2 Sat by Pulse Oximetry 10/06/18 10/06/18 10/06/18 12:45 13:00 13:15 Temperature Pulse Rate 109 H 100 H 96 H Respiratory Rate Blood Pressure 182/102 180/100 178/98 O2 Sat by Pulse Oximetry 10/06/18 10/06/18 10/06/18 13:30 13:45 14:00 Temperature 98.0 F Pulse Rate 94 H 96 H 100 H Respiratory 18 Rate Blood Pressure 180/96 182/94 180/90 O2 Sat by Pulse Oximetry 10/06/18 10/06/18 10/06/18 14:10 19:28 19:30 Temperature 98.6 F 99.2 F Pulse Rate 112 H 118 H Respiratory 18 20 Rate Blood Pressure 187/91 142/65 O2 Sat by Pulse 98 98 Oximetry Constitutional: no acute distress, alert Eyes: non-icteric ENT: oropharynx moist Effort: normal Ascultation: Bilateral: clear Cardiovascular: regular rate and rhythm (no mrg) Gastrointestinal: normoactive bowel sounds, non-distended Integumentary: normal Extremities: no cyanosis, no edema Neurologic: normal mental status, non-focal exam, pupils equal and round, CN II- XII normal Psychiatric: mood appropriate, affect normal CBC and BMP: 10/06/18 07:58 10/06/18 07:58 ABG, PT/INR, D-dimer: ABG POC ABG pH 7.462 (7.35-7.45) H 10/01/18 09:21 POC ABG pCO2 42.5 (35-45) 10/01/18 09:21 POC ABG pO2 108 (80-105) H 10/01/18 09:21 POC ABG HCO3 30.4 10/01/18 09:21 POC ABG Total CO2 32 10/01/18 09:21 POC ABG O2 Sat 98 10/01/18 09:21 PT/INR, D-dimer D-Dimer 4401.15 ng/mlDDU (0-234) H 09/21/18 22:56 Abnormal lab findings: Abnormal Labs 09/21/18 09/21/18 09/21/18 22:56 22:56 22:56 WBC RBC 3.05 L Hgb 9.0 L Hct 26.9 L Lymph % (Auto) 9.3 L Hardy % (Auto) Eos % (Auto) Lymph # 0.7 L Hardy # Eos # Baso # Seg Neutrophils % 84.0 H Seg Neuts % (Manual) Lymphocytes % (Manual) Seg Neutrophils # Seg Neutrophils # Man Lymphocytes # (Manual) D-Dimer POC ABG pH POC ABG pCO2 POC ABG pO2 Sodium Potassium 5.2 H Chloride Carbon Dioxide 17 L BUN 53 H Creatinine 6.7 H Glucose 307 H POC Glucose Lactic Acid Calcium 8.2 L Phosphorus Iron TIBC Transferrin ALT CK-MB (CK-2) CK-MB (CK-2) Rel Index Troponin T Serum Total Protein Total Protein Albumin 3.6 L Ipbwa-9-Gvooqgytn PEP Interpretation Triglycerides Cholesterol LDL Cholesterol Direct PTH Intact Urine WBC (Auto) Urine Creatinine Salicylates < 0.3 L Acetaminophen Crossmatch 09/21/18 09/21/18 09/21/18 22:56 22:56 22:56 WBC RBC Hgb Hct Lymph % (Auto) Hardy % (Auto) Eos % (Auto) Lymph # Hardy # Eos # Baso # Seg Neutrophils % Seg Neuts % (Manual) Lymphocytes % (Manual) Seg Neutrophils # Seg Neutrophils # Man Lymphocytes # (Manual) D-Dimer 4401.15 H POC ABG pH POC ABG pCO2 POC ABG pO2 Sodium Potassium Chloride Carbon Dioxide BUN Creatinine Glucose POC Glucose Lactic Acid 3.70 H* Calcium Phosphorus Iron TIBC Transferrin ALT CK-MB (CK-2) CK-MB (CK-2) Rel Index Troponin T Serum Total Protein Total Protein Albumin Nfdph-4-Dnccuavyy PEP Interpretation Triglycerides Cholesterol LDL Cholesterol Direct PTH Intact Urine WBC (Auto) Urine Creatinine Salicylates Acetaminophen < 5.0 L Crossmatch 09/21/18 09/21/18 09/22/18 23:14 23:57 00:48 WBC RBC Hgb Hct Lymph % (Auto) Hardy % (Auto) Eos % (Auto) Lymph # Hardy # Eos # Baso # Seg Neutrophils % Seg Neuts % (Manual) Lymphocytes % (Manual) Seg Neutrophils # Seg Neutrophils # Man Lymphocytes # (Manual) D-Dimer POC ABG pH 7.234 L 7.322 L POC ABG pCO2 POC ABG pO2 118 H 142 H Sodium Potassium Chloride Carbon Dioxide BUN Creatinine Glucose POC Glucose Lactic Acid Calcium Phosphorus Iron TIBC Transferrin ALT CK-MB (CK-2) CK-MB (CK-2) Rel Index Troponin T 0.062 H D Serum Total Protein Total Protein Albumin Srcii-1-Bwcybrits PEP Interpretation Triglycerides 208 H Cholesterol 206 H LDL Cholesterol Direct 143 H PTH Intact Urine WBC (Auto) Urine Creatinine Salicylates Acetaminophen Crossmatch 09/22/18 09/22/18 09/22/18 04:50 05:03 06:43 WBC RBC Hgb Hct Lymph % (Auto) Hardy % (Auto) Eos % (Auto) Lymph # Hardy # Eos # Baso # Seg Neutrophils % Seg Neuts % (Manual) Lymphocytes % (Manual) Seg Neutrophils # Seg Neutrophils # Man Lymphocytes # (Manual) D-Dimer POC ABG pH 7.556 H POC ABG pCO2 22.4 L POC ABG pO2 176 H Sodium Potassium Chloride Carbon Dioxide BUN Creatinine Glucose POC Glucose 116 H Lactic Acid Calcium Phosphorus Iron TIBC Transferrin ALT CK-MB (CK-2) 4.1 H CK-MB (CK-2) Rel Index 4.7 H Troponin T 0.107 H* D Serum Total Protein Total Protein Albumin Afnsu-6-Lpzrhhvvg PEP Interpretation Triglycerides Cholesterol LDL Cholesterol Direct PTH Intact Urine WBC (Auto) Urine Creatinine Salicylates Acetaminophen Crossmatch 09/22/18 09/22/18 09/22/18 09:12 10:26 18:00 WBC RBC Hgb Hct Lymph % (Auto) Hardy % (Auto) Eos % (Auto) Lymph # Hardy # Eos # Baso # Seg Neutrophils % Seg Neuts % (Manual) Lymphocytes % (Manual) Seg Neutrophils # Seg Neutrophils # Man Lymphocytes # (Manual) D-Dimer POC ABG pH POC ABG pCO2 POC ABG pO2 Sodium Potassium Chloride Carbon Dioxide BUN Creatinine 6.7 H Glucose POC Glucose 124 H Lactic Acid Calcium Phosphorus Iron TIBC Transferrin ALT CK-MB (CK-2) CK-MB (CK-2) Rel Index Troponin T 0.074 H D Serum Total Protein Total Protein Albumin Wjaaj-9-Ehdnoflfs PEP Interpretation Triglycerides Cholesterol LDL Cholesterol Direct PTH Intact Urine WBC (Auto) Urine Creatinine Salicylates Acetaminophen Crossmatch 09/23/18 09/23/18 09/23/18 03:57 04:24 04:24 WBC RBC 2.85 L Hgb 8.0 L Hct 24.4 L Lymph % (Auto) Hardy % (Auto) 12.6 H Eos % (Auto) Lymph # Hardy # 1.1 H Eos # Baso # Seg Neutrophils % Seg Neuts % (Manual) Lymphocytes % (Manual) Seg Neutrophils # Seg Neutrophils # Man Lymphocytes # (Manual) D-Dimer POC ABG pH POC ABG pCO2 27.2 L POC ABG pO2 113 H Sodium Potassium Chloride 113.4 H Carbon Dioxide 19 L BUN 54 H Creatinine 7.0 H Glucose POC Glucose Lactic Acid Calcium 8.3 L Phosphorus Iron TIBC Transferrin ALT CK-MB (CK-2) CK-MB (CK-2) Rel Index Troponin T Serum Total Protein Total Protein Albumin Eqmwn-0-Ezxvjbpxd PEP Interpretation Triglycerides Cholesterol LDL Cholesterol Direct PTH Intact Urine WBC (Auto) Urine Creatinine Salicylates Acetaminophen Crossmatch 09/23/18 09/23/18 09/23/18 05:32 16:00 16:00 WBC RBC Hgb Hct Lymph % (Auto) Hardy % (Auto) Eos % (Auto) Lymph # Hardy # Eos # Baso # Seg Neutrophils % Seg Neuts % (Manual) Lymphocytes % (Manual) Seg Neutrophils # Seg Neutrophils # Man Lymphocytes # (Manual) D-Dimer POC ABG pH POC ABG pCO2 POC ABG pO2 Sodium Potassium Chloride Carbon Dioxide BUN Creatinine Glucose POC Glucose Lactic Acid Calcium Phosphorus Iron TIBC Transferrin ALT CK-MB (CK-2) CK-MB (CK-2) Rel Index Troponin T Serum Total Protein 5.2 L Total Protein Albumin 2.5 L Jsybw-0-Htjkssjxb 0.4 H PEP Interpretation see below H Triglycerides Cholesterol LDL Cholesterol Direct PTH Intact Urine WBC (Auto) 13.0 H Urine Creatinine 80.7 H Salicylates Acetaminophen Crossmatch 09/23/18 09/23/18 09/24/18 18:47 23:53 04:28 WBC RBC 2.66 L Hgb 7.6 L Hct 22.5 L Lymph % (Auto) Hardy % (Auto) Eos % (Auto) Lymph # Hardy # Eos # Baso # Seg Neutrophils % Seg Neuts % (Manual) Lymphocytes % (Manual) Seg Neutrophils # Seg Neutrophils # Man Lymphocytes # (Manual) D-Dimer POC ABG pH POC ABG pCO2 POC ABG pO2 Sodium Potassium Chloride Carbon Dioxide BUN Creatinine Glucose POC Glucose 115 H 145 H Lactic Acid Calcium Phosphorus Iron TIBC Transferrin ALT CK-MB (CK-2) CK-MB (CK-2) Rel Index Troponin T Serum Total Protein Total Protein Albumin Hqqrg-5-Opnbzztof PEP Interpretation Triglycerides Cholesterol LDL Cholesterol Direct PTH Intact Urine WBC (Auto) Urine Creatinine Salicylates Acetaminophen Crossmatch 09/24/18 09/24/18 09/24/18 04:28 04:56 05:33 WBC RBC Hgb Hct Lymph % (Auto) Hardy % (Auto) Eos % (Auto) Lymph # Hardy # Eos # Baso # Seg Neutrophils % Seg Neuts % (Manual) Lymphocytes % (Manual) Seg Neutrophils # Seg Neutrophils # Man Lymphocytes # (Manual) D-Dimer POC ABG pH 7.551 H POC ABG pCO2 32.0 L POC ABG pO2 133 H Sodium Potassium Chloride Carbon Dioxide BUN 27 H Creatinine 4.8 H Glucose 129 H POC Glucose 127 H Lactic Acid Calcium 8.0 L Phosphorus Iron TIBC Transferrin ALT CK-MB (CK-2) CK-MB (CK-2) Rel Index Troponin T Serum Total Protein Total Protein Albumin Seypl-6-Xwdbrwsfi PEP Interpretation Triglycerides Cholesterol LDL Cholesterol Direct PTH Intact Urine WBC (Auto) Urine Creatinine Salicylates Acetaminophen Crossmatch 09/24/18 09/24/18 09/24/18 12:39 19:57 23:53 WBC RBC Hgb Hct Lymph % (Auto) Hardy % (Auto) Eos % (Auto) Lymph # Hardy # Eos # Baso # Seg Neutrophils % Seg Neuts % (Manual) Lymphocytes % (Manual) Seg Neutrophils # Seg Neutrophils # Man Lymphocytes # (Manual) D-Dimer POC ABG pH POC ABG pCO2 POC ABG pO2 Sodium Potassium Chloride Carbon Dioxide BUN Creatinine Glucose POC Glucose 171 H 209 H 158 H Lactic Acid Calcium Phosphorus Iron TIBC Transferrin ALT CK-MB (CK-2) CK-MB (CK-2) Rel Index Troponin T Serum Total Protein Total Protein Albumin Jevmh-5-Yrqjujhnw PEP Interpretation Triglycerides Cholesterol LDL Cholesterol Direct PTH Intact Urine WBC (Auto) Urine Creatinine Salicylates Acetaminophen Crossmatch 09/25/18 09/25/18 09/25/18 04:06 04:06 05:16 WBC RBC 2.73 L Hgb 7.9 L Hct 23.4 L Lymph % (Auto) Hardy % (Auto) Eos % (Auto) Lymph # Hardy # Eos # Baso # Seg Neutrophils % Seg Neuts % (Manual) Lymphocytes % (Manual) Seg Neutrophils # Seg Neutrophils # Man Lymphocytes # (Manual) D-Dimer POC ABG pH 7.477 H POC ABG pCO2 POC ABG pO2 122 H Sodium Potassium Chloride 97.2 L Carbon Dioxide BUN Creatinine 3.6 H Glucose 118 H POC Glucose Lactic Acid Calcium 8.2 L Phosphorus Iron TIBC Transferrin ALT CK-MB (CK-2) CK-MB (CK-2) Rel Index Troponin T Serum Total Protein Total Protein Albumin Pisdp-2-Qrjqbrqqx PEP Interpretation Triglycerides Cholesterol LDL Cholesterol Direct PTH Intact Urine WBC (Auto) Urine Creatinine Salicylates Acetaminophen Crossmatch 09/25/18 09/25/18 09/25/18 05:55 12:29 16:21 WBC RBC Hgb Hct Lymph % (Auto) Hardy % (Auto) Eos % (Auto) Lymph # Hardy # Eos # Baso # Seg Neutrophils % Seg Neuts % (Manual) Lymphocytes % (Manual) Seg Neutrophils # Seg Neutrophils # Man Lymphocytes # (Manual) D-Dimer POC ABG pH 7.216 L POC ABG pCO2 79.9 H POC ABG pO2 Sodium Potassium Chloride Carbon Dioxide BUN Creatinine Glucose POC Glucose 144 H 128 H Lactic Acid Calcium Phosphorus Iron TIBC Transferrin ALT CK-MB (CK-2) CK-MB (CK-2) Rel Index Troponin T Serum Total Protein Total Protein Albumin Gactk-5-Kcuqoykjq PEP Interpretation Triglycerides Cholesterol LDL Cholesterol Direct PTH Intact Urine WBC (Auto) Urine Creatinine Salicylates Acetaminophen Crossmatch 09/25/18 09/25/18 09/25/18 18:27 18:44 23:56 WBC RBC Hgb Hct Lymph % (Auto) Hardy % (Auto) Eos % (Auto) Lymph # Hardy # Eos # Baso # Seg Neutrophils % Seg Neuts % (Manual) Lymphocytes % (Manual) Seg Neutrophils # Seg Neutrophils # Man Lymphocytes # (Manual) D-Dimer POC ABG pH POC ABG pCO2 53.2 H POC ABG pO2 78 L Sodium Potassium Chloride Carbon Dioxide BUN Creatinine Glucose POC Glucose 264 H 170 H Lactic Acid Calcium Phosphorus Iron TIBC Transferrin ALT CK-MB (CK-2) CK-MB (CK-2) Rel Index Troponin T Serum Total Protein Total Protein Albumin Uufja-1-Xdmzywdzc PEP Interpretation Triglycerides Cholesterol LDL Cholesterol Direct PTH Intact Urine WBC (Auto) Urine Creatinine Salicylates Acetaminophen Crossmatch 09/26/18 09/26/18 09/26/18 03:46 04:51 05:04 WBC RBC Hgb Hct Lymph % (Auto) Hardy % (Auto) Eos % (Auto) Lymph # Hardy # Eos # Baso # Seg Neutrophils % Seg Neuts % (Manual) Lymphocytes % (Manual) Seg Neutrophils # Seg Neutrophils # Man Lymphocytes # (Manual) D-Dimer POC ABG pH 7.584 H POC ABG pCO2 30.9 L POC ABG pO2 151 H Sodium Potassium Chloride 95.5 L Carbon Dioxide BUN 34 H Creatinine 5.4 H Glucose 185 H POC Glucose 186 H Lactic Acid Calcium Phosphorus Iron TIBC Transferrin ALT CK-MB (CK-2) CK-MB (CK-2) Rel Index Troponin T Serum Total Protein Total Protein Albumin Hhyti-8-Pkwqolfvu PEP Interpretation Triglycerides Cholesterol LDL Cholesterol Direct PTH Intact Urine WBC (Auto) Urine Creatinine Salicylates Acetaminophen Crossmatch 09/26/18 09/26/18 09/26/18 06:23 12:41 17:55 WBC RBC Hgb Hct Lymph % (Auto) Hardy % (Auto) Eos % (Auto) Lymph # Hardy # Eos # Baso # Seg Neutrophils % Seg Neuts % (Manual) Lymphocytes % (Manual) Seg Neutrophils # Seg Neutrophils # Man Lymphocytes # (Manual) D-Dimer POC ABG pH 7.330 L POC ABG pCO2 49.9 H POC ABG pO2 Sodium Potassium Chloride Carbon Dioxide BUN Creatinine Glucose POC Glucose 182 H 171 H Lactic Acid Calcium Phosphorus Iron TIBC Transferrin ALT CK-MB (CK-2) CK-MB (CK-2) Rel Index Troponin T Serum Total Protein Total Protein Albumin Gulxm-8-Qcbkkiiql PEP Interpretation Triglycerides Cholesterol LDL Cholesterol Direct PTH Intact Urine WBC (Auto) Urine Creatinine Salicylates Acetaminophen Crossmatch 09/27/18 09/27/18 09/27/18 00:06 05:11 05:36 WBC RBC Hgb Hct Lymph % (Auto) Hardy % (Auto) Eos % (Auto) Lymph # Hardy # Eos # Baso # Seg Neutrophils % Seg Neuts % (Manual) Lymphocytes % (Manual) Seg Neutrophils # Seg Neutrophils # Man Lymphocytes # (Manual) D-Dimer POC ABG pH POC ABG pCO2 POC ABG pO2 136 H Sodium Potassium Chloride Carbon Dioxide BUN Creatinine Glucose POC Glucose 170 H 115 H Lactic Acid Calcium Phosphorus Iron TIBC Transferrin ALT CK-MB (CK-2) CK-MB (CK-2) Rel Index Troponin T Serum Total Protein Total Protein Albumin Rxspr-2-Mainkezxu PEP Interpretation Triglycerides Cholesterol LDL Cholesterol Direct PTH Intact Urine WBC (Auto) Urine Creatinine Salicylates Acetaminophen Crossmatch 09/27/18 09/27/18 09/27/18 06:05 11:51 18:17 WBC RBC Hgb Hct Lymph % (Auto) Hardy % (Auto) Eos % (Auto) Lymph # Hardy # Eos # Baso # Seg Neutrophils % Seg Neuts % (Manual) Lymphocytes % (Manual) Seg Neutrophils # Seg Neutrophils # Man Lymphocytes # (Manual) D-Dimer POC ABG pH POC ABG pCO2 POC ABG pO2 Sodium Potassium Chloride 95.0 L Carbon Dioxide BUN 39 H Creatinine 5.1 H Glucose 145 H POC Glucose 181 H 214 H Lactic Acid Calcium Phosphorus Iron TIBC Transferrin ALT CK-MB (CK-2) CK-MB (CK-2) Rel Index Troponin T Serum Total Protein Total Protein Albumin Qdptf-5-Komawkuvn PEP Interpretation Triglycerides Cholesterol LDL Cholesterol Direct PTH Intact Urine WBC (Auto) Urine Creatinine Salicylates Acetaminophen Crossmatch 09/27/18 09/28/18 09/28/18 23:28 04:39 04:44 WBC RBC Hgb Hct Lymph % (Auto) Hardy % (Auto) Eos % (Auto) Lymph # Hardy # Eos # Baso # Seg Neutrophils % Seg Neuts % (Manual) Lymphocytes % (Manual) Seg Neutrophils # Seg Neutrophils # Man Lymphocytes # (Manual) D-Dimer POC ABG pH POC ABG pCO2 POC ABG pO2 151 H Sodium 134 L Potassium Chloride 95.2 L Carbon Dioxide BUN 61 H Creatinine 7.2 H Glucose 165 H POC Glucose 127 H Lactic Acid Calcium 8.0 L Phosphorus Iron TIBC Transferrin ALT CK-MB (CK-2) CK-MB (CK-2) Rel Index Troponin T Serum Total Protein Total Protein Albumin Njwgv-7-Uaxjeosoo PEP Interpretation Triglycerides Cholesterol LDL Cholesterol Direct PTH Intact Urine WBC (Auto) Urine Creatinine Salicylates Acetaminophen Crossmatch 09/28/18 09/28/18 09/28/18 05:47 11:36 17:51 WBC RBC Hgb Hct Lymph % (Auto) Hardy % (Auto) Eos % (Auto) Lymph # Hardy # Eos # Baso # Seg Neutrophils % Seg Neuts % (Manual) Lymphocytes % (Manual) Seg Neutrophils # Seg Neutrophils # Man Lymphocytes # (Manual) D-Dimer POC ABG pH POC ABG pCO2 POC ABG pO2 Sodium Potassium Chloride Carbon Dioxide BUN Creatinine Glucose POC Glucose 159 H 240 H 268 H Lactic Acid Calcium Phosphorus Iron TIBC Transferrin ALT CK-MB (CK-2) CK-MB (CK-2) Rel Index Troponin T Serum Total Protein Total Protein Albumin Yoqjq-4-Iwgogxzcr PEP Interpretation Triglycerides Cholesterol LDL Cholesterol Direct PTH Intact Urine WBC (Auto) Urine Creatinine Salicylates Acetaminophen Crossmatch 09/28/18 09/29/18 09/29/18 23:24 05:20 09:45 WBC RBC Hgb Hct Lymph % (Auto) Hardy % (Auto) Eos % (Auto) Lymph # Hardy # Eos # Baso # Seg Neutrophils % Seg Neuts % (Manual) Lymphocytes % (Manual) Seg Neutrophils # Seg Neutrophils # Man Lymphocytes # (Manual) D-Dimer POC ABG pH POC ABG pCO2 POC ABG pO2 56 L Sodium Potassium Chloride Carbon Dioxide BUN Creatinine Glucose POC Glucose 194 H 127 H Lactic Acid Calcium Phosphorus Iron TIBC Transferrin ALT CK-MB (CK-2) CK-MB (CK-2) Rel Index Troponin T Serum Total Protein Total Protein Albumin Kpoue-0-Zthxdvdoi PEP Interpretation Triglycerides Cholesterol LDL Cholesterol Direct PTH Intact Urine WBC (Auto) Urine Creatinine Salicylates Acetaminophen Crossmatch 09/29/18 09/29/18 09/29/18 09:54 10:48 10:48 WBC 14.5 H RBC 2.67 L Hgb 7.4 L Hct 22.6 L Lymph % (Auto) Hardy % (Auto) Eos % (Auto) Lymph # Hardy # Eos # Baso # Seg Neutrophils % Seg Neuts % (Manual) 90.0 H Lymphocytes % (Manual) 6.0 L Seg Neutrophils # Seg Neutrophils # Man 13.1 H Lymphocytes # (Manual) 0.9 L D-Dimer POC ABG pH POC ABG pCO2 POC ABG pO2 72 L Sodium Potassium Chloride Carbon Dioxide BUN Creatinine Glucose POC Glucose Lactic Acid Calcium Phosphorus 5.30 H Iron 15 L TIBC 146 L Transferrin 109 L ALT CK-MB (CK-2) CK-MB (CK-2) Rel Index Troponin T Serum Total Protein Total Protein Albumin Lnxno-6-Belzmnngw PEP Interpretation Triglycerides Cholesterol LDL Cholesterol Direct PTH Intact Urine WBC (Auto) Urine Creatinine Salicylates Acetaminophen Crossmatch 09/29/18 09/29/18 09/29/18 10:48 12:24 18:25 WBC RBC Hgb Hct Lymph % (Auto) Hardy % (Auto) Eos % (Auto) Lymph # Hardy # Eos # Baso # Seg Neutrophils % Seg Neuts % (Manual) Lymphocytes % (Manual) Seg Neutrophils # Seg Neutrophils # Man Lymphocytes # (Manual) D-Dimer POC ABG pH POC ABG pCO2 POC ABG pO2 Sodium Potassium Chloride Carbon Dioxide BUN Creatinine Glucose POC Glucose 260 H 203 H Lactic Acid Calcium Phosphorus Iron TIBC Transferrin ALT CK-MB (CK-2) CK-MB (CK-2) Rel Index Troponin T Serum Total Protein Total Protein Albumin Ivkxb-3-Dtlhtjikx PEP Interpretation Triglycerides Cholesterol LDL Cholesterol Direct PTH Intact 417.9 H Urine WBC (Auto) Urine Creatinine Salicylates Acetaminophen Crossmatch 09/30/18 09/30/18 09/30/18 00:14 05:12 12:06 WBC RBC Hgb Hct Lymph % (Auto) Hardy % (Auto) Eos % (Auto) Lymph # Hardy # Eos # Baso # Seg Neutrophils % Seg Neuts % (Manual) Lymphocytes % (Manual) Seg Neutrophils # Seg Neutrophils # Man Lymphocytes # (Manual) D-Dimer POC ABG pH POC ABG pCO2 POC ABG pO2 Sodium Potassium Chloride Carbon Dioxide BUN Creatinine Glucose POC Glucose 260 H 136 H 193 H Lactic Acid Calcium Phosphorus Iron TIBC Transferrin ALT CK-MB (CK-2) CK-MB (CK-2) Rel Index Troponin T Serum Total Protein Total Protein Albumin Waiit-4-Wpdpqimmp PEP Interpretation Triglycerides Cholesterol LDL Cholesterol Direct PTH Intact Urine WBC (Auto) Urine Creatinine Salicylates Acetaminophen Crossmatch 09/30/18 09/30/18 10/01/18 17:23 23:29 05:48 WBC 16.4 H RBC 2.55 L Hgb 7.1 L Hct 21.9 L Lymph % (Auto) Hardy % (Auto) Eos % (Auto) Lymph # Hardy # Eos # Baso # Seg Neutrophils % Seg Neuts % (Manual) Lymphocytes % (Manual) Seg Neutrophils # Seg Neutrophils # Man Lymphocytes # (Manual) D-Dimer POC ABG pH POC ABG pCO2 POC ABG pO2 Sodium Potassium Chloride Carbon Dioxide BUN Creatinine Glucose POC Glucose 119 H 159 H Lactic Acid Calcium Phosphorus Iron TIBC Transferrin ALT CK-MB (CK-2) CK-MB (CK-2) Rel Index Troponin T Serum Total Protein Total Protein Albumin Suwsy-8-Wqkofnezm PEP Interpretation Triglycerides Cholesterol LDL Cholesterol Direct PTH Intact Urine WBC (Auto) Urine Creatinine Salicylates Acetaminophen Crossmatch 10/01/18 10/01/18 10/01/18 05:48 09:21 10:47 WBC RBC Hgb Hct Lymph % (Auto) Hardy % (Auto) Eos % (Auto) Lymph # Hardy # Eos # Baso # Seg Neutrophils % Seg Neuts % (Manual) Lymphocytes % (Manual) Seg Neutrophils # Seg Neutrophils # Man Lymphocytes # (Manual) D-Dimer POC ABG pH 7.462 H POC ABG pCO2 POC ABG pO2 108 H Sodium Potassium Chloride 95.6 L Carbon Dioxide BUN 53 H Creatinine 6.5 H Glucose POC Glucose Lactic Acid Calcium Phosphorus Iron TIBC Transferrin ALT CK-MB (CK-2) CK-MB (CK-2) Rel Index Troponin T Serum Total Protein Total Protein Albumin [id number] PEP Interpretation Triglycerides Cholesterol LDL Cholesterol Direct PTH Intact Urine WBC (Auto) Urine Creatinine Salicylates Acetaminophen Crossmatch See Detail 10/01/18 10/01/18 10/02/18 18:36 23:00 05:06 WBC RBC Hgb Hct Lymph % (Auto) Hardy % (Auto) Eos % (Auto) Lymph # Hardy # Eos # Baso # Seg Neutrophils % Seg Neuts % (Manual) Lymphocytes % (Manual) Seg Neutrophils # Seg Neutrophils # Man Lymphocytes # (Manual) D-Dimer POC ABG pH POC ABG pCO2 POC ABG pO2 Sodium Potassium Chloride Carbon Dioxide BUN Creatinine Glucose POC Glucose 123 H 128 H 177 H Lactic Acid Calcium Phosphorus Iron TIBC Transferrin ALT CK-MB (CK-2) CK-MB (CK-2) Rel Index Troponin T Serum Total Protein Total Protein Albumin Tjhin-6-Rqaonrrqz PEP Interpretation Triglycerides Cholesterol LDL Cholesterol Direct PTH Intact Urine WBC (Auto) Urine Creatinine Salicylates Acetaminophen Crossmatch 10/02/18 10/02/18 10/02/18 12:18 17:48 23:17 WBC RBC Hgb Hct Lymph % (Auto) Hardy % (Auto) Eos % (Auto) Lymph # Hardy # Eos # Baso # Seg Neutrophils % Seg Neuts % (Manual) Lymphocytes % (Manual) Seg Neutrophils # Seg Neutrophils # Man Lymphocytes # (Manual) D-Dimer POC ABG pH POC ABG pCO2 POC ABG pO2 Sodium Potassium Chloride Carbon Dioxide BUN Creatinine Glucose POC Glucose 145 H 173 H 106 H Lactic Acid Calcium Phosphorus Iron TIBC Transferrin ALT CK-MB (CK-2) CK-MB (CK-2) Rel Index Troponin T Serum Total Protein Total Protein Albumin Gmrdn-1-Cldfsecyi PEP Interpretation Triglycerides Cholesterol LDL Cholesterol Direct PTH Intact Urine WBC (Auto) Urine Creatinine Salicylates Acetaminophen Crossmatch 10/03/18 10/03/18 10/03/18 03:25 03:25 07:10 WBC RBC 3.45 L Hgb 9.8 L Hct 29.1 L D Lymph % (Auto) Hardy % (Auto) Eos % (Auto) Lymph # Hardy # Eos # Baso # Seg Neutrophils % Seg Neuts % (Manual) Lymphocytes % (Manual) Seg Neutrophils # Seg Neutrophils # Man Lymphocytes # (Manual) D-Dimer POC ABG pH POC ABG pCO2 POC ABG pO2 Sodium Potassium Chloride 94.4 L Carbon Dioxide BUN 39 H Creatinine 6.0 H Glucose 130 H POC Glucose 141 H Lactic Acid Calcium Phosphorus Iron TIBC Transferrin ALT CK-MB (CK-2) CK-MB (CK-2) Rel Index Troponin T Serum Total Protein Total Protein Albumin Ivbii-3-Wojkoxhwv PEP Interpretation Triglycerides Cholesterol LDL Cholesterol Direct PTH Intact Urine WBC (Auto) Urine Creatinine Salicylates Acetaminophen Crossmatch 10/03/18 10/03/18 10/03/18 12:16 18:36 21:21 WBC RBC Hgb Hct Lymph % (Auto) Hardy % (Auto) Eos % (Auto) Lymph # Hardy # Eos # Baso # Seg Neutrophils % Seg Neuts % (Manual) Lymphocytes % (Manual) Seg Neutrophils # Seg Neutrophils # Man Lymphocytes # (Manual) D-Dimer POC ABG pH POC ABG pCO2 POC ABG pO2 Sodium Potassium Chloride Carbon Dioxide BUN Creatinine Glucose POC Glucose 146 H 267 H 235 H Lactic Acid Calcium Phosphorus Iron TIBC Transferrin ALT CK-MB (CK-2) CK-MB (CK-2) Rel Index Troponin T Serum Total Protein Total Protein Albumin Zalyf-3-Iasjdhwdg PEP Interpretation Triglycerides Cholesterol LDL Cholesterol Direct PTH Intact Urine WBC (Auto) Urine Creatinine Salicylates Acetaminophen Crossmatch 10/03/18 10/04/18 10/04/18 23:52 00:44 00:44 WBC 11.8 H RBC 3.23 L Hgb 9.0 L Hct 27.7 L Lymph % (Auto) Hardy % (Auto) Eos % (Auto) Lymph # Hardy # Eos # Baso # Seg Neutrophils % Seg Neuts % (Manual) Lymphocytes % (Manual) Seg Neutrophils # Seg Neutrophils # Man Lymphocytes # (Manual) D-Dimer POC ABG pH POC ABG pCO2 POC ABG pO2 Sodium 136 L Potassium Chloride 94.8 L Carbon Dioxide BUN 47 H Creatinine 7.6 H Glucose 182 H POC Glucose 197 H Lactic Acid Calcium Phosphorus Iron TIBC Transferrin ALT CK-MB (CK-2) CK-MB (CK-2) Rel Index Troponin T Serum Total Protein Total Protein Albumin Bhnde-9-Wqyhiopwv PEP Interpretation Triglycerides Cholesterol LDL Cholesterol Direct PTH Intact Urine WBC (Auto) Urine Creatinine Salicylates Acetaminophen Crossmatch 10/04/18 10/04/18 10/05/18 06:33 17:33 04:00 WBC 11.9 H RBC 2.86 L Hgb 8.1 L Hct 24.4 L Lymph % (Auto) Hardy % (Auto) 12.0 H Eos % (Auto) 4.9 H Lymph # Hardy # 1.4 H Eos # 0.6 H Baso # 0.2 H Seg Neutrophils % Seg Neuts % (Manual) Lymphocytes % (Manual) Seg Neutrophils # 8.0 H Seg Neutrophils # Man Lymphocytes # (Manual) D-Dimer POC ABG pH POC ABG pCO2 POC ABG pO2 Sodium Potassium Chloride Carbon Dioxide BUN Creatinine Glucose POC Glucose 138 H 144 H Lactic Acid Calcium Phosphorus Iron TIBC Transferrin ALT CK-MB (CK-2) CK-MB (CK-2) Rel Index Troponin T Serum Total Protein Total Protein Albumin Zankv-2-Xujalhsob PEP Interpretation Triglycerides Cholesterol LDL Cholesterol Direct PTH Intact Urine WBC (Auto) Urine Creatinine Salicylates Acetaminophen Crossmatch 10/05/18 10/05/18 10/05/18 04:00 14:09 21:53 WBC RBC Hgb Hct Lymph % (Auto) Hardy % (Auto) Eos % (Auto) Lymph # Hardy # Eos # Baso # Seg Neutrophils % Seg Neuts % (Manual) Lymphocytes % (Manual) Seg Neutrophils # Seg Neutrophils # Man Lymphocytes # (Manual) D-Dimer POC ABG pH POC ABG pCO2 POC ABG pO2 Sodium Potassium Chloride Carbon Dioxide BUN Creatinine 4.3 H Glucose POC Glucose 120 H 174 H Lactic Acid Calcium Phosphorus Iron TIBC Transferrin ALT < 5 L CK-MB (CK-2) CK-MB (CK-2) Rel Index Troponin T Serum Total Protein Total Protein 6.2 L Albumin 3.0 L Lkxvn-2-Xmvkqcqwq PEP Interpretation Triglycerides Cholesterol LDL Cholesterol Direct PTH Intact Urine WBC (Auto) Urine Creatinine Salicylates Acetaminophen Crossmatch 10/06/18 10/06/18 10/06/18 07:58 07:58 17:38 WBC 12.4 H RBC 3.18 L Hgb 9.0 L Hct 27.5 L Lymph % (Auto) 12.4 L Hardy % (Auto) 9.4 H Eos % (Auto) 5.3 H Lymph # Hardy # 1.2 H Eos # 0.7 H Baso # Seg Neutrophils % 71.8 H Seg Neuts % (Manual) Lymphocytes % (Manual) Seg Neutrophils # 8.9 H Seg Neutrophils # Man Lymphocytes # (Manual) D-Dimer POC ABG pH POC ABG pCO2 POC ABG pO2 Sodium Potassium Chloride Carbon Dioxide BUN 26 H Creatinine 6.7 H D Glucose POC Glucose 158 H Lactic Acid Calcium Phosphorus Iron TIBC Transferrin ALT < 5 L CK-MB (CK-2) CK-MB (CK-2) Rel Index Troponin T Serum Total Protein Total Protein Albumin 3.3 L Jfhsj-1-Oiunqswfp PEP Interpretation Triglycerides Cholesterol LDL Cholesterol Direct PTH Intact Urine WBC (Auto) Urine Creatinine Salicylates Acetaminophen Crossmatch Chest x-ray: report reviewed, image reviewed
[2018-10-06] MEDS: ZOFRAN IV PRN (20:20)
[2018-10-06] MEDS: PRAVACHOL PO SCH (21:22)
[2018-10-06] MEDS: LANTUS SUB-Q SCH (21:22)
[2018-10-07] MEDS: HumaLOG SUB-Q SCH ×4 (00:40→17:26)
[2018-10-07 05:45] LABS: Basophils # (Auto) 0.1 K/mm3 (0.0-0.1); Basophils % (Auto) 1.1 % (0.0-1.8); Eosinophils # (Auto) 0.5 K/mm3 (0.0-0.4); Eosinophils % (Auto) 4.8 % (0.0-4.3); Hemoglobin 8.8 gm/dl (10.1-14.3); Lymphocytes # (Auto) 1.6 K/mm3 (1.2-5.4); Lymphocytes % (Auto) 15.4 % (13.4-35.0); Mean Corpuscular HGB Conc 34 % (30-34); Mean Corpuscular Volume 87 fl (79-97); Monocytes # (Auto) 1.1 K/mm3 (0.0-0.8); Monocytes % (Auto) 10.8 % (0.0-7.3); Platelet Count 212 K/mm3 (140-440); Red Blood Count 2.99 M/mm3 (3.65-5.03)
[2018-10-07 06:15] LABS: Albumin 3.3 g/dL (3.9-5); BUN/Creatinine Ratio 3; Blood Urea Nitrogen 13 mg/dL (7-17); Calcium 8.6 mg/dL (8.4-10.2); Hemolysis Index 4
[2018-10-07 06:22] LABS: Alanine Aminotransferase < 5 units/L (7-56)
[2018-10-07] MEDS: APRESOLINE PO SCH ×3 (08:58→20:15)
[2018-10-07] MEDS: CATAPRES PO SCH ×2 (09:24→22:03)
[2018-10-07] MEDS: IMDUR PO SCH (09:26)
[2018-10-07] MEDS: COREG PO SCH ×2 (09:26→22:02)
[2018-10-07] MEDS: CARDURA PO SCH (09:26)
[2018-10-07] MEDS: PEPCID PO SCH (09:26)
[2018-10-07] MEDS: SENOKOT S PO SCH ×2 (09:26→22:04)
[2018-10-07] MEDS: LOVENOX SUB-Q SCH (09:27)
[2018-10-07] MEDS: SODIUM CHLORIDE FLUSH SYRINGE 10 ML IV SCH ×2 (09:27→22:04)
[2018-10-07] MEDS ORDERED: PROCRIT IV PRN (09:29)
--- NOTE | 2018-10-07 09:30 | Progress Note ---
Assessment and Plan Impression * ESRD--new onset --Status post right IJ Vas-Cath placement on 09/23/2018. * Acute hypoxic respiratory failure secondary to pneumonia plus /minus fluid overload * Metabolic acidosis -resolved * Hyperkalemia - resolved * Type II diabetes mellitus * Hypertension * renal mass * Proteinuria Recommendations * Hemodialysis continue MWF and prn schedule * UF as tolerated * will need outpatient hd placement--[facility] * s/p perm cath placement * Avoid nephrotoxins * Monitor fluid status and electrolytes closely * follow up MRI without contrast for renal mass noted---solid complex mass per discussion with radiology * rec urology consultation for renal mass * ok to dc home from renal standpoint after urology evaluation Subjective Date of service: 10/07/18 Principal diagnosis: acute respiratory failure, end-stage renal disease, AMS Interval history: resting well in bed today Objective - Exam Narrative Exam: HEENT: Oral mucosa moist Neck: Supple no JVD Chest: Clear to auscultation anteriorly Posteriorly has crackles in bases CVS: Regular rate and rhythm S1 and S2 heard Abdomen: Soft nontender no suprapubic masses no organomegaly appreciable Extremity: Dry skin less than 1+ peripheral edema Musculoskeletal: No joint effusion noted in knees and ankle Dermatology: No petechial rashes Psychiatry: No evidence of any agitation and aggression noted - Vital Signs Vital signs: Vital Signs - 12hr 10/06/18 10/07/18 10/07/18 22:00 02:15 07:27 Temperature 97.8 F 98.9 F Pulse Rate 75 92 H Pulse Rate [ 118 H From Monitor] Respiratory 20 20 18 Rate Blood Pressure 127/53 129/64 O2 Sat by Pulse 98 96 95 Oximetry 10/07/18 09:24 Temperature Pulse Rate 92 H Pulse Rate [ From Monitor] Respiratory Rate Blood Pressure 129/64 O2 Sat by Pulse Oximetry - Lab 10/07/18 05:07 10/07/18 05:07 Most recent lab results Calcium 8.6 mg/dL (8.4-10.2) 10/07/18 05:07 Phosphorus 5.30 mg/dL (2.5-4.5) H 09/29/18 10:48 Urine Creatinine 80.7 mg/dL (0.1-20.0) H 09/23/18 16:00 Urine Sodium 66 mmol/L 09/23/18 16:00 Medications & Allergies - Medications Allergies/Adverse Reactions: Allergies codeine Adverse Reaction (Verified 09/23/18 10:09) Unknown Home Medications: Home Medications Medication Instructions Recorded Confirmed Last Taken Type ALBUTEROL NEB's [Proventil 0.083% 2.5 mg INHALATION Q6H PRN 09/25/18 09/25/18 Unknown History NEBS] Carvedilol 25 mg PO Q12H 09/25/18 09/25/18 Unknown History Clonidine 0.2 mg PO BID 09/25/18 09/25/18 Unknown History Doxazosin 2 mg PO DAILY 09/25/18 09/25/18 Unknown History Dss 100 mg PO BID 09/25/18 09/25/18 Unknown History Fluticasone [Flonase] 1 spray INNOSTRIL DAILY 09/25/18 09/25/18 Unknown History Insulin NPH/Regular [Novolin 70/30] 20 unit SQ DAILY 09/25/18 09/25/18 Unknown History Isosorbide Mononitrate 30 mg PO DAILY 09/25/18 09/25/18 Unknown History NIFEdipine [Nifedipine ER] 60 mg PO BID 09/25/18 09/25/18 Unknown History Sevelamer Carbonate 1 tab PO TID 09/25/18 09/25/18 Unknown History Simvastatin [Zocor] 1 tab PO DAILY 09/25/18 09/25/18 Unknown History Torsemide [Demadex] 0.5 tab PO DAILY 09/25/18 09/25/18 Unknown History hydrALAZINE 100 mg PO Q8H 09/25/18 09/25/18 Unknown History Active Medications: Generic Name Dose Route Start Last Admin Trade Name Freq PRN Reason Stop Dose Admin Acetaminophen 650 mg 09/22/18 04:14 10/05/18 14:01 Tylenol PO 650 mg Q4H PRN Administration Pain MILD(1-3)/Fever >100.5/MEJIA Lipase/Protease/Amylase 1 each 09/23/18 13:57 Pancrenuha Bourgeois 10,500 Unit FEEDTUBE PRN PRN For Clogged Feeding Tube Carvedilol 25 mg 10/05/18 22:00 10/07/18 09:26 Coreg PO 25 mg BID KAILA Administration Clonidine HCl 0.2 mg 10/05/18 22:00 10/07/18 09:24 Catapres PO 0.2 mg Q12HR KAILA Administration Dextrose 50 ml 09/22/18 04:14 D50w (25gm) Syringe IV PRN PRN Hypoglycemia Doxazosin Mesylate 2 mg 10/06/18 10:00 10/07/18 09:26 Cardura PO 2 mg QDAY KAILA Administration Enoxaparin Sodium 30 mg 09/22/18 10:00 10/07/18 09:27 Lovenox SUB-Q 30 mg QDAY KAILA Administration Epinephrine 0.5 ml 09/25/18 12:52 10/01/18 00:13 S2 Racepinephrine 2.25% IH 0.5 ml Q4HRT PRN Administration stridor Epoetin Av 20,000 unit 10/07/18 09:29 Procrit IV CAROLINE PRN hemodialysis Famotidine 20 mg 09/29/18 10:00 10/07/18 09:26 Pepcid PO 20 mg DAILY KAILA Administration Haloperidol Lactate 5 mg 10/01/18 11:00 Haldol IV Q6H PRN Agitation Hydralazine HCl 10 mg 09/22/18 19:30 10/05/18 14:12 Apresoline IV 10 mg Q4HR PRN Administration SBP>160 Hydralazine HCl 50 mg 09/29/18 14:00 10/07/18 08:58 Apresoline PO 50 mg TID KAILA Administration Sodium Chloride 100 mls @ 999 mls/hr 09/29/18 09:26 Nacl 0.9% IV CAROLINE PRN Hypotension Insulin Glargine 5 units 09/28/18 22:00 10/06/18 21:22 Lantus SUB-Q 5 units QHS KAILA Administration Insulin Human Lispro 0 unit 09/22/18 06:00 10/07/18 06:42 Humalog SUB-Q Not Given Q6HR [facility] Protocol Isosorbide Mononitrate 30 mg 10/06/18 10:00 10/07/18 09:26 Imdur PO 30 mg QDAY KAILA Administration Lorazepam 1 mg 09/23/18 10:06 09/29/18 20:32 Ativan IV 1 mg Q4H PRN Administration Agitation Ondansetron HCl 4 mg 09/30/18 22:58 10/06/18 20:20 Zofran IV 4 mg Q8H PRN Administration Nausea And Vomiting Pravastatin Sodium 20 mg 10/05/18 22:00 10/06/18 21:22 Pravachol PO 20 mg QHS KAILA Administration Senna/Docusate Sodium 2 tab 09/30/18 12:00 10/07/18 09:26 Senokot S PO 2 tab BID KAILA Administration Simple Syrup 15 ml 09/23/18 13:57 Simple Syrup FEEDTUBE PRN PRN Hypoglycemia Simple Syrup 30 ml 09/23/18 13:57 Simple Syrup FEEDTUBE PRN PRN Hypoglycemia Sodium Bicarbonate 325 mg 09/23/18 13:57 Sodium Bicarbonate FEEDTUBE PRN PRN For Clogged Feeding Tube Sodium Chloride 10 ml 09/22/18 10:00 10/07/18 09:27 Sodium Chloride Flush Syringe 10 Ml IV 10 ml BID KAILA Administration Sodium Chloride 10 ml 09/22/18 04:14 10/03/18 16:46 Sodium Chloride Flush Syringe 10 Ml IV 10 ml PRN PRN Administration LINE FLUSH
--- NOTE | 2018-10-07 14:52 | Progress Note ---
Assessment and Plan Assessment and plan: New ESRD new on HD on MWF -Nephrology following -Awaiting out pt HD placement DM II -controlled on SSI HTN -controlled on meds Acute Hypoxic resp failure 2/2 Volume overload -s/p extubation -pt is saturating well on RM Suspected Aspiration PNA -off antibiotics -cont aspiration precautions Acute metabolic encephalopathy -resolved Elevated troponin -likely demand ischemia, stable Physical deconditoning -PT following Disp: pt is awaiting out-pt HD set-up before d/c History Interval history: Pt has no new complaints Hospitalist Physical - Constitutional Vitals: Temp Pulse Resp BP Pulse Ox 98.9 F 92 H 18 129/64 95 10/07/18 07:27 10/07/18 10:00 10/07/18 07:27 10/07/18 09:24 10/07/18 10:00 General appearance: Present: no acute distress - EENT Eyes: Present: PERRL, EOM intact ENT: hearing intact, clear oral mucosa - Neck Neck: Present: supple - Respiratory Respiratory effort: normal Respiratory: negative: CTA - Cardiovascular Rhythm: regular Heart Sounds: Present: S1 & S2 - Extremities Extremities: No edema - Abdominal General gastrointestinal: soft, non-tender, normal bowel sounds - Neurologic Neurologic: CNII-XII intact Results - Labs CBC & Chem 7: 10/07/18 05:07 10/07/18 05:07 Labs: Laboratory Last Values WBC 10.3 K/mm3 (4.5-11.0) 10/07/18 05:07 RBC 2.99 M/mm3 (3.65-5.03) L 10/07/18 05:07 Hgb 8.8 gm/dl (10.1-14.3) L 10/07/18 05:07 Hct 26.0 % (30.3-42.9) L 10/07/18 05:07 MCV 87 fl (79-97) 10/07/18 05:07 MCH 29 pg (28-32) 10/07/18 05:07 MCHC 34 % (30-34) 10/07/18 05:07 RDW 15.0 % (13.2-15.2) 10/07/18 05:07 Plt Count 212 K/mm3 (140-440) 10/07/18 05:07 Lymph % (Auto) 15.4 % (13.4-35.0) 10/07/18 05:07 [place] % (Auto) 10.8 % (0.0-7.3) H 10/07/18 05:07 Eos % (Auto) 4.8 % (0.0-4.3) H 10/07/18 05:07 Baso % (Auto) 1.1 % (0.0-1.8) 10/07/18 05:07 Lymph # 1.6 K/mm3 (1.2-5.4) 10/07/18 05:07 Wilcox # 1.1 K/mm3 (0.0-0.8) H 10/07/18 05:07 Eos # 0.5 K/mm3 (0.0-0.4) H 10/07/18 05:07 Baso # 0.1 K/mm3 (0.0-0.1) 10/07/18 05:07 Add Manual Diff Complete 09/29/18 10:48 Total Counted 100 09/29/18 10:48 Seg Neutrophils % 67.9 % (40.0-70.0) 10/07/18 05:07 Seg Neuts % (Manual) 90.0 % (40.0-70.0) H 09/29/18 10:48 Band Neutrophils % 0 % 09/29/18 10:48 Lymphocytes % (Manual) 6.0 % (13.4-35.0) L 09/29/18 10:48 Reactive Lymphs % (Man) 0 % 09/29/18 10:48 Monocytes % (Manual) 0 % (0.0-7.3) 09/29/18 10:48 Eosinophils % (Manual) 1.0 % (0.0-4.3) 09/29/18 10:48 Basophils % (Manual) 1.0 % (0.0-1.8) 09/29/18 10:48 Metamyelocytes % 2.0 % 09/29/18 10:48 Myelocytes % 0 % 09/29/18 10:48 Promyelocytes % 0 % 09/29/18 10:48 Blast Cells % 0 % 09/29/18 10:48 Nucleated RBC % Not Reportable 09/29/18 10:48 Seg Neutrophils # 7.0 K/mm3 (1.8-7.7) 10/07/18 05:07 Seg Neutrophils # Man 13.1 K/mm3 (1.8-7.7) H 09/29/18 10:48 Band Neutrophils # 0.0 K/mm3 09/29/18 10:48 Lymphocytes # (Manual) 0.9 K/mm3 (1.2-5.4) L 09/29/18 10:48 Abs React Lymphs (Man) 0.0 K/mm3 09/29/18 10:48 Monocytes # (Manual) 0.0 K/mm3 (0.0-0.8) 09/29/18 10:48 Eosinophils # (Manual) 0.1 K/mm3 (0.0-0.4) 09/29/18 10:48 Basophils # (Manual) 0.1 K/mm3 (0.0-0.1) 09/29/18 10:48 Metamyelocytes # 0.3 K/mm3 09/29/18 10:48 Myelocytes # 0.0 K/mm3 09/29/18 10:48 Promyelocytes # 0.0 K/mm3 09/29/18 10:48 Blast Cells # 0.0 K/mm3 09/29/18 10:48 WBC Morphology Not Reportable 09/29/18 10:48 Hypersegmented Neuts Not Reportable 09/29/18 10:48 Hyposegmented Neuts Not Reportable 09/29/18 10:48 Hypogranular Neuts Not Reportable 09/29/18 10:48 Smudge Cells Not Reportable 09/29/18 10:48 Toxic Granulation Not Reportable 09/29/18 10:48 Toxic Vacuolation Not Reportable 09/29/18 10:48 Dohle Bodies Not Reportable 09/29/18 10:48 Pelger-Huet Anomaly Not Reportable 09/29/18 10:48 Kevin Rods Not Reportable 09/29/18 10:48 Platelet Estimate Consistent w auto 09/29/18 10:48 Clumped Platelets Not Reportable 09/29/18 10:48 Plt Clumps, EDTA Not Reportable 09/29/18 10:48 Large Platelets Not Reportable 09/29/18 10:48 Giant Platelets Not Reportable 09/29/18 10:48 Platelet Satelliting Not Reportable 09/29/18 10:48 Plt Morphology Comment Not Reportable 09/29/18 10:48 RBC Morphology Not Reportable 09/29/18 10:48 Dimorphic RBCs Not Reportable 09/29/18 10:48 Polychromasia Not Reportable 09/29/18 10:48 Hypochromasia Not Reportable 09/29/18 10:48 Poikilocytosis Not Reportable 09/29/18 10:48 Anisocytosis 1+ 09/29/18 10:48 Microcytosis Not Reportable 09/29/18 10:48 Macrocytosis Not Reportable 09/29/18 10:48 Spherocytes Not Reportable 09/29/18 10:48 Pappenheimer Bodies Not Reportable 09/29/18 10:48 Sickle Cells Not Reportable 09/29/18 10:48 Target Cells Not Reportable 09/29/18 10:48 Tear Drop Cells Not Reportable 09/29/18 10:48 Ovalocytes Not Reportable 09/29/18 10:48 Helmet Cells Not Reportable 09/29/18 10:48 [place] Bodies Not Reportable 09/29/18 10:48 [place] Rings Not Reportable 09/29/18 10:48 [place] Cells Not Reportable 09/29/18 10:48 Bite Cells Not Reportable 09/29/18 10:48 Crenated Cell Not Reportable 09/29/18 10:48 Elliptocytes Not Reportable 09/29/18 10:48 Acanthocytes (Spur) Not Reportable 09/29/18 10:48 Rouleaux Not Reportable 09/29/18 10:48 Hemoglobin C Crystals Not Reportable 09/29/18 10:48 Schistocytes Not Reportable 09/29/18 10:48 Malaria parasites Not Reportable 09/29/18 10:48 Sal Bodies Not Reportable 09/29/18 10:48 Hem Pathologist Commnt No 09/29/18 10:48 D-Dimer 4401.15 ng/mlDDU (0-234) H 09/21/18 22:56 POC ABG pH 7.462 (7.35-7.45) H 10/01/18 09:21 POC ABG pCO2 42.5 (35-45) 10/01/18 09:21 POC ABG pO2 108 (80-105) H 10/01/18 09:21 POC ABG HCO3 30.4 10/01/18 09:21 POC ABG Total CO2 32 10/01/18 09:21 POC ABG O2 Sat 98 10/01/18 09:21 POC ABG Base Excess 7 10/01/18 09:21 FiO2 30 % 10/01/18 09:21 Sodium 140 mmol/L (137-145) 10/07/18 05:07 Potassium 4.3 mmol/L (3.6-5.0) 10/07/18 05:07 Chloride 99.0 mmol/L (98-107) 10/07/18 05:07 Carbon Dioxide 26 mmol/L (22-30) 10/07/18 05:07 Anion Gap 19 mmol/L 10/07/18 05:07 BUN 13 mg/dL (7-17) 10/07/18 05:07 Creatinine 4.7 mg/dL (0.7-1.2) H 10/07/18 05:07 Estimated GFR 11 ml/min 10/07/18 05:07 BUN/Creatinine Ratio 3 % 10/07/18 05:07 Glucose 131 mg/dL (65-100) H 10/07/18 05:07 POC Glucose 207 (70-105) H 10/07/18 11:55 Lactic Acid 1.70 mmol/L (0.7-2.0) 09/22/18 04:50 Calcium 8.6 mg/dL (8.4-10.2) 10/07/18 05:07 Phosphorus 5.30 mg/dL (2.5-4.5) H 09/29/18 10:48 Iron 15 ug/dL (37-170) L 09/29/18 10:48 TIBC 146 mcg/dL (250-450) L 09/29/18 10:48 % Saturation 10.27 % 09/29/18 10:48 Transferrin 109 mg/dl (192-382) L 09/29/18 10:48 Total Bilirubin 0.30 mg/dL (0.1-1.2) 10/07/18 05:07 AST 14 units/L (5-40) 10/07/18 05:07 ALT < 5 units/L (7-56) L 10/07/18 05:07 Alkaline Phosphatase 67 units/L (35-129) 10/07/18 05:07 Ammonia 57.0 umol/L (25-60) 09/21/18 22:56 Total Creatine Kinase 81 units/L (30-135) 09/22/18 10:26 CK-MB (CK-2) 3.1 ng/mL (0.0-4.0) 09/22/18 10:26 CK-MB (CK-2) Rel Index 3.8 (0-4) 09/22/18 10:26 Troponin T 0.074 ng/mL (0.00-0.029) H D 09/22/18 10:26 Serum Total Protein 5.2 g/dL (6.1-8.1) L 09/23/18 05:32 Total Protein 6.9 g/dL (6.3-8.2) 10/07/18 05:07 Albumin 3.3 g/dL (3.9-5) L 10/07/18 05:07 Albumin/Globulin Ratio 0.9 % 10/07/18 05:07 Whkoh-8-Ubvdwgdlq 0.4 g/dL (0.2-0.3) H 09/23/18 05:32 Gccmc-2-Weuzvcvnj 0.8 g/dL (0.5-0.9) 09/23/18 05:32 Beta Globulins 0.4 g/dL (0.2-0.5) 09/23/18 05:32 Gamma Globulins 0.9 g/dL (0.8-1.7) 09/23/18 05:32 Abnorm Protein Band 1 see below 09/23/18 05:32 PEP Interpretation see below H 09/23/18 05:32 Triglycerides 208 mg/dL (2-149) H 09/21/18 23:57 Cholesterol 206 mg/dL (50-199) H 09/21/18 23:57 LDL Cholesterol Direct 143 mg/dL (50-130) H 09/21/18 23:57 HDL Cholesterol 40 mg/dL (40-59) 09/21/18 23:57 Cholesterol/HDL Ratio 5.15 % 09/21/18 23:57 Vitamin B12 839.9 pg/mL (211-911) 09/29/18 10:48 PTH Intact 417.9 pg/mL (15-65) H 09/29/18 10:48 Urine Color Yellow (Yellow) 09/23/18 16:00 Urine Turbidity Clear (Clear) 09/23/18 16:00 Urine pH 7.0 (5.0-7.0) 09/23/18 16:00 Ur Specific [place] 1.009 (1.003-1.030) 09/23/18 16:00 Urine Protein >500 mg/dL (Negative) 09/23/18 16:00 Urine Glucose (UA) 50 mg/dL (Negative) 09/23/18 16:00 Urine Ketones Neg mg/dL (Negative) 09/23/18 16:00 Urine Blood Neg (Negative) 09/23/18 16:00 Urine Nitrite Neg (Negative) 09/23/18 16:00 Urine Bilirubin Neg (Negative) 09/23/18 16:00 Urine Urobilinogen < 2.0 mg/dL (<2.0) 09/23/18 16:00 Ur Leukocyte Esterase Sm (Negative) 09/23/18 16:00 Urine WBC (Auto) 13.0 /HPF (0.0-6.0) H 09/23/18 16:00 Urine RBC (Auto) 1.0 /HPF (0.0-6.0) 09/23/18 16:00 U Epithel Cells (Auto) < 1.0 /HPF (0-13.0) 09/23/18 16:00 Urine Bacteria (Auto) 1+ /HPF (Negative) 09/23/18 16:00 Hyaline Casts 3 /LPF 09/23/18 16:00 Urine Mucus Few /HPF 09/23/18 16:00 Urine Eosinophils None seen (None Seen) 09/22/18 16:00 Urine Creatinine 80.7 mg/dL (0.1-20.0) H 09/23/18 16:00 Urine Sodium 66 mmol/L 09/23/18 16:00 Fraction Sodium Excret 3.6 09/23/18 16:00 Salicylates < 0.3 mg/dL (2.8-20.0) L 09/21/18 22:56 Acetaminophen < 5.0 ug/mL (10.0-30.0) L 09/21/18 22:56 Plasma/Serum Alcohol < 0.01 % (0-0.07) 09/21/18 22:56 AGATA Screen Negative (Negative) 09/22/18 18:06 Proteinase 3 (PR3) Ab <1.0 AI (<1.0) 09/22/18 18:06 Myeloperoxidase Ab <1.0 AI (<1.0) 09/22/18 18:06 Double Strand DNA Ab 1 IU/mL (<=4) 09/22/18 18:06 Complement C3 113 mg/dL (83-193) 09/22/18 18:06 Complement C4 57 mg/dL (15-57) 09/22/18 18:06 Hepatitis A IgM Ab Non-reactive (NonReactive) 09/22/18 18:06 Hep Bs Antigen Non-reactive (Negative) 09/22/18 18:06 Hep B Core IgM Ab Non-reactive (NonReactive) 09/22/18 18:06 Hepatitis C Antibody Non-reactive (NonReactive) 09/22/18 18:06 Blood Type A POSITIVE 10/01/18 10:47 Antibody Screen Negative 10/01/18 10:47 Crossmatch See Detail 10/01/18 10:47 Nutrition/Malnutrition Assess - Dietary Evaluation Nutrition/Malnutrition Findings: Nutrition Notes Start: 09/23/18 13:24 Freq: Status: Active Protocol: Document 09/29/18 14:27 ENEIDA (Rec: 09/29/18 14:32 ENEIDA [id number] [email or web address]) Nutrition Notes Initial or Follow up Reassessment Current Diagnosis CKD (stage V CKD) Diabetes Hypertension Respiratory Failure Other Pertinent Diagnosis Pneu Current Diet TF - Nepro at 35ml/hr Labs/Tests Reviewed Pertinent Medications Lantus Height 5 ft 3 in Weight 75 kg [place] Body Weight (kg) 52.27 BMI 29.2 Subjective/Other Information Pt remains on vent support. She is tolerating TF at goal rate. Percent of energy/protein needs met: 100% energy 76% pro Burn Absent Trauma Absent #1 Nutrition Diagnosis Inadequate oral intake Diagnosis Progress(for reassessment Continues documentation) Is patient on ventilator? Yes Is Patient Ambulatory and/or Out of Bed No REE-([place]-[facility]-confined to bed) 1510.134 [facility] Additional [facility] Pro needs 1.2-2g/k-150g/ day Fluid needs 1-1.5L/day Nutrition Intervention Nutrition Support: Continue Nepro at 35ml/hr Water flush of 150 ml q4h or per MD order Kcal 1,512 Protein (gm) 68 Fluid (mL) 610 Goal #1 TF tolerance Goal #2 TF to meet at least 80% energy and pro needs Follow-Up By: 10/07/18 Additional Comments F/U: stable TF, wt, vent status
[2018-10-07 17:12] LABS: Iron 37 ug/dL (37-170); Total Iron Binding Capacity 128 mcg/dL (250-450)
[2018-10-07] MEDS: TYLENOL PO PRN (21:10)
[2018-10-07] MEDS: PRAVACHOL PO SCH (22:02)
[2018-10-07] MEDS: LANTUS SUB-Q SCH (22:03)
[2018-10-08] MEDS: HumaLOG SUB-Q SCH ×4 (00:09→17:47)
[2018-10-08] MEDS: APRESOLINE PO SCH ×2 (08:00→17:26)
--- NOTE | 2018-10-08 08:22 | Event Note ---
Date: 10/08/18 [id number]
[2018-10-08] MEDS: CARDURA PO SCH (10:00)
[2018-10-08] MEDS: COREG PO SCH (10:00)
[2018-10-08] MEDS: SENOKOT S PO SCH (10:00)
[2018-10-08] MEDS: CATAPRES PO SCH (10:00)
[2018-10-08] MEDS: PEPCID PO SCH (10:00)
[2018-10-08] MEDS: IMDUR PO SCH (10:00)
[2018-10-08] MEDS: LOVENOX SUB-Q SCH (10:00)
[2018-10-08] MEDS ORDERED: NACL 0.9 (PRIMING MACHINE ONLY DIALYSIS) MC ONE (11:21)
--- NOTE | 2018-10-08 12:18 | Consultation ---
REFERRING PHYSICIAN: Dr. Sahra Ferris. REASON FOR CONSULTATION: Renal mass. HISTORY OF PRESENT ILLNESS: I saw the patient, a 68-year-old female in the medical floor. She was admitted on 09/22/2018 with shortness of breath. She was found to have renal impairment. She has past history of hypertension, hyperlipidemia, diabetes, CKD. At admission, she was intubated. The nephrology team saw the patient. Creatinine of 6.7 and dialysis was started. During this admission, the patient has had abdominal MRI which showed left kidney inferior pole 3.9 cm mass with possible neoplasm. I have been asked to evaluate the patient. Urology has been consulted. At this time, the patient says she is feeling better. No headache, no visual disturbances, no ear discharge, no chest pain, no palpitation, no vomiting, no diarrhea, no dysuria, no bleeding. PAST MEDICAL HISTORY: As above. Diabetes, hypertension, shortness of breath, intubated, pneumonia, metabolic encephalopathy, newly diagnosed end-stage renal disease, history of CKD. FAMILY HISTORY: Family history of hypertension. PAST SURGICAL HISTORY: Not available. SOCIAL HISTORY: No history of tobacco or alcohol usage. ALLERGIES: CODEINE. MEDICATIONS: Present medications include lipase, carvedilol, dextrose, Lovenox, Procrit, hydralazine, lorazepam. PHYSICAL EXAMINATION: VITAL SIGNS: Temperature 98, pulse 76, respirations 20, BP 138/48. HEENT: Mild pallor, no icterus. NECK: No neck lymph nodes. HEART: S1, S2. LUNGS: Clear to auscultation. ABDOMEN: Soft. EXTREMITIES: No calf tenderness. NEUROLOGIC: Alert, awake, oriented, answers questions appropriately. LABORATORY DATA: White cell 10, hemoglobin 8.8, MCV 87, platelet 212. Potassium 4.3, creatinine 4.7, calcium 8.6, bilirubin 0.3. RADIOLOGY: MRI as above. ASSESSMENT AND PLAN: 1. A 3.9 cm left inferior pole kidney mass, renal neoplasm suspected. Urology has been consulted. 2. Newly diagnosed end-stage renal disease, on dialysis. 3. Diabetes. 4. Hypertension. 5. Hyperlipidemia. We will await Urology plans. The patient also has anemia. The patient is on erythropoietin support. The B12 level was normal. I will follow the patient during inpatient stay and then in the clinic setting. JOB# [id number] DANETTE/VERO
--- NOTE | 2018-10-08 12:47 | Progress Note ---
Assessment and Plan Impression * ESRD--new onset --Status post right IJ Vas-Cath placement on 09/23/2018. * Acute hypoxic respiratory failure secondary to pneumonia plus /minus fluid overload * Metabolic acidosis -resolved * Hyperkalemia - resolved * Type II diabetes mellitus * Hypertension * renal mass * Proteinuria Recommendations * Hemodialysis continue MWF and prn schedule * UF as tolerated * outpatient hd placement--[facility] * s/p perm cath placement * Avoid nephrotoxins * Monitor fluid status and electrolytes closely * follow up MRI without contrast for renal mass noted---solid complex mass per discussion with radiology * rec urology consultation for renal mass * ok to dc home from renal standpoint after urology evaluation Subjective Date of service: 10/08/18 Principal diagnosis: acute respiratory failure, end-stage renal disease, AMS Interval history: resting well in bed today Objective - Exam Narrative Exam: HEENT: Oral mucosa moist Neck: Supple no JVD Chest: Clear to auscultation anteriorly Posteriorly has crackles in bases CVS: Regular rate and rhythm S1 and S2 heard Abdomen: Soft nontender no suprapubic masses no organomegaly appreciable Extremity: Dry skin less than 1+ peripheral edema Musculoskeletal: No joint effusion noted in knees and ankle Dermatology: No petechial rashes Psychiatry: No evidence of any agitation and aggression noted - Vital Signs Vital signs: Vital Signs - 12hr 10/08/18 10/08/18 10/08/18 02:49 07:20 09:45 Temperature 98.5 F 98.3 F 98.9 F Pulse Rate 54 L 76 63 Respiratory 18 20 16 Rate Blood Pressure 109/30 138/48 147/54 O2 Sat by Pulse 98 96 Oximetry 10/08/18 10/08/18 10/08/18 10:00 10:15 10:30 Temperature Pulse Rate 71 71 73 Respiratory Rate Blood Pressure 157/85 143/69 154/63 O2 Sat by Pulse Oximetry 10/08/18 10/08/18 10/08/18 10:45 11:00 11:15 Temperature Pulse Rate 86 70 73 Respiratory Rate Blood Pressure 126/57 143/60 151/73 O2 Sat by Pulse Oximetry 10/08/18 10/08/18 10/08/18 11:30 11:45 12:00 Temperature Pulse Rate 83 85 86 Respiratory Rate Blood Pressure 154/78 154/66 185/69 O2 Sat by Pulse Oximetry 10/08/18 12:15 Temperature Pulse Rate 92 H Respiratory Rate Blood Pressure 140/59 O2 Sat by Pulse Oximetry - Lab 10/07/18 05:07 10/07/18 05:07 Most recent lab results Calcium 8.6 mg/dL (8.4-10.2) 10/07/18 05:07 Phosphorus 5.30 mg/dL (2.5-4.5) H 09/29/18 10:48 Urine Creatinine 80.7 mg/dL (0.1-20.0) H 09/23/18 16:00 Urine Sodium 66 mmol/L 09/23/18 16:00 Medications & Allergies - Medications Allergies/Adverse Reactions: Allergies codeine Adverse Reaction (Verified 09/23/18 10:09) Unknown Home Medications: Home Medications Medication Instructions Recorded Confirmed Last Taken Type ALBUTEROL NEB's [Proventil 0.083% 2.5 mg INHALATION Q6H PRN 09/25/18 09/25/18 Unknown History NEBS] Carvedilol 25 mg PO Q12H 09/25/18 09/25/18 Unknown History Clonidine 0.2 mg PO BID 09/25/18 09/25/18 Unknown History Doxazosin 2 mg PO DAILY 09/25/18 09/25/18 Unknown History Dss 100 mg PO BID 09/25/18 09/25/18 Unknown History Fluticasone [Flonase] 1 spray INNOSTRIL DAILY 09/25/18 09/25/18 Unknown History Insulin NPH/Regular [Novolin 70/30] 20 unit SQ DAILY 09/25/18 09/25/18 Unknown History Isosorbide Mononitrate 30 mg PO DAILY 09/25/18 09/25/18 Unknown History NIFEdipine [Nifedipine ER] 60 mg PO BID 09/25/18 09/25/18 Unknown History Sevelamer Carbonate 1 tab PO TID 09/25/18 09/25/18 Unknown History Simvastatin [Zocor] 1 tab PO DAILY 09/25/18 09/25/18 Unknown History Torsemide [Demadex] 0.5 tab PO DAILY 09/25/18 09/25/18 Unknown History hydrALAZINE 100 mg PO Q8H 09/25/18 09/25/18 Unknown History Active Medications: Generic Name Dose Route Start Last Admin Trade Name Freq PRN Reason Stop Dose Admin Acetaminophen 650 mg 09/22/18 04:14 10/07/18 21:10 Tylenol PO 650 mg Q4H PRN Administration Pain MILD(1-3)/Fever >100.5/MEJIA Lipase/Protease/Amylase 1 each 09/23/18 13:57 Pancreazdasha Bourgeois 10,500 Unit FEEDTUBE PRN PRN For Clogged Feeding Tube Carvedilol 25 mg 10/05/18 22:00 10/07/18 22:02 Coreg PO 25 mg BID KAILA Administration Clonidine HCl 0.2 mg 10/05/18 22:00 10/07/18 22:03 Catapres PO Not Given Q12HR KAILA Dextrose 50 ml 09/22/18 04:14 D50w (25gm) Syringe IV PRN PRN Hypoglycemia Doxazosin Mesylate 2 mg 10/06/18 10:00 10/07/18 09:26 Cardura PO 2 mg QDAY KAILA Administration Enoxaparin Sodium 30 mg 09/22/18 10:00 10/07/18 09:27 Lovenox SUB-Q 30 mg QDAY KAILA Administration Epinephrine 0.5 ml 09/25/18 12:52 10/01/18 00:13 S2 Racepinephrine 2.25% IH 0.5 ml Q4HRT PRN Administration stridor Epoetin Av 20,000 unit 10/07/18 09:29 Procrit IV CAROLINE PRN hemodialysis Famotidine 20 mg 09/29/18 10:00 10/07/18 09:26 Pepcid PO 20 mg DAILY KAILA Administration Haloperidol Lactate 5 mg 10/01/18 11:00 Haldol IV Q6H PRN Agitation Hydralazine HCl 10 mg 09/22/18 19:30 10/05/18 14:12 Apresoline IV 10 mg Q4HR PRN Administration SBP>160 Hydralazine HCl 50 mg 09/29/18 14:00 10/07/18 20:15 Apresoline PO Not Given TID [facility] Sodium Chloride 100 mls @ 999 mls/hr 09/29/18 09:26 Nacl 0.9% IV CAROLINE PRN Hypotension Insulin Glargine 5 units 09/28/18 22:00 10/07/18 22:03 Lantus SUB-Q 5 units QHS KAILA Administration Insulin Human Lispro 0 unit 09/22/18 06:00 10/08/18 06:26 Humalog SUB-Q Not Given Q6HR [facility] Protocol Isosorbide Mononitrate 30 mg 10/06/18 10:00 10/07/18 09:26 Imdur PO 30 mg QDAY KAILA Administration Lorazepam 1 mg 09/23/18 10:06 09/29/18 20:32 Ativan IV 1 mg Q4H PRN Administration Agitation Ondansetron HCl 4 mg 09/30/18 22:58 10/06/18 20:20 Zofran IV 4 mg Q8H PRN Administration Nausea And Vomiting Pravastatin Sodium 20 mg 10/05/18 22:00 10/07/18 22:02 Pravachol PO 20 mg QHS KAILA Administration Senna/Docusate Sodium 2 tab 09/30/18 12:00 10/07/18 22:04 Senokot S PO Not Given BID KAILA Simple Syrup 15 ml 09/23/18 13:57 Simple Syrup FEEDTUBE PRN PRN Hypoglycemia Simple Syrup 30 ml 09/23/18 13:57 Simple Syrup FEEDTUBE PRN PRN Hypoglycemia Sodium Bicarbonate 325 mg 09/23/18 13:57 Sodium Bicarbonate FEEDTUBE PRN PRN For Clogged Feeding Tube Sodium Chloride 10 ml 09/22/18 10:00 10/07/18 22:04 Sodium Chloride Flush Syringe 10 Ml IV 10 ml BID KAILA Administration Sodium Chloride 10 ml 09/22/18 04:14 10/03/18 16:46 Sodium Chloride Flush Syringe 10 Ml IV 10 ml PRN PRN Administration LINE FLUSH
--- NOTE | 2018-10-08 15:44 | Fluoroscopy Report ---
MODIFIED BARIUM SWALLOW INDICATION: Dysphagia. COMPARISON: None similar. IMAGES/CINE CLIPS: 1 FINDINGS: Fluoroscopy with video provided by radiologist for speech therapist to assess the swallowing mechanism. Food items of various consistencies given. No aspiration noted. IMPRESSION: Successful modified barium swallow. Please refer to detailed report from speech pathologist. Thank you for the opportunity to participate in this patient's care.
[2018-10-08 15:51] VITALS: BP 146/66
[2018-10-08] MEDS: SODIUM CHLORIDE FLUSH SYRINGE 10 ML IV SCH (17:09)
--- NOTE | 2018-10-09 22:03 | Discharge Summary ---
Providers - Providers Date of Admission: 09/22/18 04:14 Date of discharge: 10/08/18 Attending physician: LIBAN OLMEDO 09/22/18 04:14 Consult to Physician [CONS] Routine Comment: Spoke with Dr. Baltazar @ 0420 Consulting Provider: YOUSIF BALTAZAR Physician Instructions: Reason For Exam: cc 09/22/18 14:24 Consult to Physician [CONS] Urgent Comment: Consulting Provider: MEGGAN WIGGINS Physician Instructions: Reason For Exam: CKD 09/22/18 17:22 Consult to Physician [CONS] Routine Comment: Consulting Provider: SANDRA FORBES Physician Instructions: Reason For Exam: permcath placement 09/23/18 12:23 Consult to Dietitian/Nutrition [CONS] Stat Physician Instructions: Reason For Exam: Reason for Consult: Write/Manage Tube Feeding 09/26/18 09:36 Consult to Physician [CONS] Routine Comment: Consulting Provider: ELLEN MORENO Physician Instructions: Reason For Exam: AMS 10/02/18 11:29 Speech Therapy Evaluation and Treat [CONS] Routine Reason For Exam: Difficulty in swallowing 10/02/18 11:30 Physical Therapy Evaluation and Treat [CONS] Routine Comment: Reason For Exam: Debility 10/07/18 14:59 Consult to Physician [CONS] Routine Comment: Consulting Provider: BEE BERMUDEZ Physician Instructions: Reason For Exam: renal mass Primary care physician: MAXINE MOMIN Hospitalization Reason for admission: AMS, Acute on CRF, RLL PNA, Hyperglycemia Condition: Stable Pertinent studies: Chest x-ray: RLL PNA Pulmonary perfusion study/venous doppler BLE: negative for PE/DVT Head CTscan: Negative Abdomen/pelvic MRI: Complex mass in LT kidney Echo: EF 50-55% Procedures: Endotracheal Intubation HD catheter placement Hospital course: FINAL DISCHARGE DIAGNOSIS: -Acute Hypoxic respt failure 2/2 Volume overload -New ESRD on HD on MWF -Bacterial PNA (staph aureus) -New LT renal mass, likely neoplasm -DM II with hyperglycemia -Acute metabolic encephalopathy -Elevated troponin, likely demand ischemia (multifactorial) -Hyperkalemia -Metabolic acidosis -Physical deconditoning, improved HOSPITAL COURSE: In the ED, patient was emergently intubated and placed on MV and later transferred to the ICU for management. On admission, she was placed on IV antibiotic for the PNA after blood, sputum and urine cultures were obtained. Pulmonary perfusion study and venous doppler US were done, which were reported as negative for PE and DVT. Nephrology was consulted and patient underwent hemodialysis. For the hyperglycemia, she was placed on insulin regimen. Cardiology was consulted, but no invasive investigative testing was recommended. Subsequently, her respiratory status improved and she was extubated successfully. Thereafter, she was transferred to the acute medicine floor for continued management. She was monitored on the floor without any adverse events and was then deemed stable for discharge. The blood and urine cultures came back neg for any growth. However, subsequent sputum culture done was reported as positive for staph aureus. There was initial suspicion for dysphagia, however after further evaluation with barium swallow, she was cleared for regular diet. Prior to discharge, out-patient dialysis was set-up. For the new LT renal mass, plans were made for patient to follow up with the urology and oncology clinics. Disposition: TO HOME OR SELFCARE Time spent for discharge: 40 minutes Core Measure Documentation - Palliative Care Palliative Care/ Comfort Measures: Not Applicable - Core Measures Any of the following diagnoses?: none Exam - Constitutional Vitals: Temp Pulse Resp BP Pulse Ox 98.3 F 109 H 20 146/66 99 10/08/18 15:50 10/08/18 15:50 10/08/18 15:50 10/08/18 15:50 10/08/18 15:50 General appearance: Present: no acute distress, well-nourished - EENT Eyes: Present: PERRL, EOM intact ENT: hearing intact, clear oral mucosa - Neck Neck: Present: supple, normal ROM - Respiratory Respiratory effort: normal Respiratory: bilateral: CTA - Cardiovascular Rhythm: regular Heart Sounds: Present: S1 & S2. Absent: rub, click - Extremities Extremities: No edema - Abdominal General gastrointestinal: Present: soft, non-tender, non-distended, normal bowel sounds - Neurologic Neurologic: CNII-XII intact Plan Follow up with: MAXINE MOMIN [Primary Care Provider] - 3-5 Days
== END 2018-10-08 18:00 | disposition home health service (06) | DRG 207 ==
LOC: ED 21:55 → CC1 09-22 04:14 → 2B-ACE 10-02 14:33
PROVIDERS: ADMIT Internal Medicine; ATTEND Internal Medicine
PROC: 5A1945Z Respiratory Ventilation, 24-96 Consecutive Hours (ICD-10-PCS; principal; 2018-09-21)
PROC: 4A033R1 Measurement of Arterial Saturation, Peripheral, Percutaneous Approach (ICD-10-PCS; 2018-09-21)
PROC: 0BH17EZ Insertion of Endotracheal Airway into Trachea, Via Natural or Artificial Opening (ICD-10-PCS; 2018-09-21)
PROC: 5A1D70Z Performance of Urinary Filtration, Intermittent, Less than 6 Hours Per Day (ICD-10-PCS; 2018-09-23)
PROC: 02HV33Z Insertion of Infusion Device into Superior Vena Cava, Percutaneous Approach (ICD-10-PCS; 2018-09-23)
PROC: B5181ZA Fluoroscopy of Superior Vena Cava using Low Osmolar Contrast, Guidance (ICD-10-PCS; 2018-09-23)
PROC: B548ZZA Ultrasonography of Superior Vena Cava, Guidance (ICD-10-PCS; 2018-09-23)
PROC: 5A1D70Z Performance of Urinary Filtration, Intermittent, Less than 6 Hours Per Day (ICD-10-PCS; 2018-09-24)
PROC: 5A09357 Assistance with Respiratory Ventilation, Less than 24 Consecutive Hours, Continuous Positive Airway Pressure (ICD-10-PCS; 2018-09-25)
PROC: 5A1955Z Respiratory Ventilation, Greater than 96 Consecutive Hours (ICD-10-PCS; 2018-09-25)
PROC: 0BH17EZ Insertion of Endotracheal Airway into Trachea, Via Natural or Artificial Opening (ICD-10-PCS; 2018-09-25)
PROC: 5A1D70Z Performance of Urinary Filtration, Intermittent, Less than 6 Hours Per Day (ICD-10-PCS; 2018-09-26)
PROC: 5A1D70Z Performance of Urinary Filtration, Intermittent, Less than 6 Hours Per Day (ICD-10-PCS; 2018-09-29)
PROC: 5A09357 Assistance with Respiratory Ventilation, Less than 24 Consecutive Hours, Continuous Positive Airway Pressure (ICD-10-PCS; 2018-09-30)
PROC: 30233N1 Transfusion of Nonautologous Red Blood Cells into Peripheral Vein, Percutaneous Approach (ICD-10-PCS; 2018-10-01)
PROC: 5A1D70Z Performance of Urinary Filtration, Intermittent, Less than 6 Hours Per Day (ICD-10-PCS; 2018-10-01)
PROC: 5A09357 Assistance with Respiratory Ventilation, Less than 24 Consecutive Hours, Continuous Positive Airway Pressure (ICD-10-PCS; 2018-10-01)
PROC: 02PYX3Z Removal of Infusion Device from Great Vessel, External Approach (ICD-10-PCS; 2018-10-03)
PROC: 0JH63XZ Insertion of Tunneled Vascular Access Device into Chest Subcutaneous Tissue and Fascia, Percutaneous Approach (ICD-10-PCS; 2018-10-03)
PROC: 02H633Z Insertion of Infusion Device into Right Atrium, Percutaneous Approach (ICD-10-PCS; 2018-10-03)
PROC: B2141ZZ Fluoroscopy of Right Heart using Low Osmolar Contrast (ICD-10-PCS; 2018-10-03)
PROC: 5A1D70Z Performance of Urinary Filtration, Intermittent, Less than 6 Hours Per Day (ICD-10-PCS; 2018-10-03)
PROC: 5A1D70Z Performance of Urinary Filtration, Intermittent, Less than 6 Hours Per Day (ICD-10-PCS; 2018-10-04)
PROC: 5A1D70Z Performance of Urinary Filtration, Intermittent, Less than 6 Hours Per Day (ICD-10-PCS; 2018-10-06)
PROC: 5A1D70Z Performance of Urinary Filtration, Intermittent, Less than 6 Hours Per Day (ICD-10-PCS; 2018-10-08)
DX: J96.01 Acute respiratory failure with hypoxia (principal); A41.9 Sepsis, unspecified organism; G93.41 Metabolic encephalopathy; J15.211 Pneumonia due to Methicillin susceptible Staphylococcus aureus; N18.6 End stage renal disease; I21.A1 Myocardial infarction type 2; I13.2 Hypertensive heart and chronic kidney disease with heart failure and with stage 5 chronic kidney disease, or end stage renal disease; E87.1 Hypo-osmolality and hyponatremia; N25.81 Secondary hyperparathyroidism of renal origin; E87.2 Acidosis; R65.10 Systemic inflammatory response syndrome (SIRS) of non-infectious origin without acute organ dysfunction; I50.9 Heart failure, unspecified; E11.22 Type 2 diabetes mellitus with diabetic chronic kidney disease; I25.10 Atherosclerotic heart disease of native coronary artery without angina pectoris; E66.9 Obesity, unspecified; E78.5 Hyperlipidemia, unspecified; F17.210 Nicotine dependence, cigarettes, uncomplicated; E87.5 Hyperkalemia; I08.1 Rheumatic disorders of both mitral and tricuspid valves; D63.1 Anemia in chronic kidney disease; N28.89 Other specified disorders of kidney and ureter; E11.65 Type 2 diabetes mellitus with hyperglycemia; Z82.49 Family history of ischemic heart disease and other diseases of the circulatory system; Z68.28 Body mass index [BMI] 28.0-28.9, adult
CPT/HCPCS: 36415; 36558; 36600; 70450; 71045; 72195; 74018; 74181; 74230; 76770; 77001; 78580; 80048; 80053; 80061; 80074; 80320; 81001; 82140; 82550; 82553; 82565; 82570; 82607; 82728; 82803; 82962; 83550; 83970; 84100; 84165; 84295; 84300; 84484; 85007; 85025; 85027; 85379; 86021; 86038; 86160; 86225; 86850; 86900; 86901; 86920; 87040; 87070; 87086; 87186; 87205; 89050; 93005; 93010; 93306; 93970; 94002; 94003; 94640; 94660; 94760; G0378; A9270-GY; A9540; C1750; C1769; G0480; J0330; J0360; J0690; J0692; J0696; J0885; J1630; J1644; J1650; J1815; J2060; J2250; J2405; J2543; J2704; J2920; J3010; J7030; J7040; J7050; J7070; P9016